=== PATIENT | female | born 1945 | race Caucasian/White ===

== ENCOUNTER → 2017-08-26 11:14 | Outpatient (CLI) | payer MEDICARE, OTHER, SELFPAY ==
[2017-08-26 12:40] LABS: Anion Gap 7 (5-15); BUN 17 mg/dL (7-18); BUN/Creat Ratio 16.3 RATIO (10-20); Calcium,Total 10.4 mg/dL (8.5-10.1); Chloride 103 mmol/L (98-107); Creatinine, Serum 1.04 mg/dL (0.55-1.02); EST Glomerular Filtration Rate 56 mL/min (>60); Est Glom Filt Rate - Afr Amer 67 mL/min (>60); Glucose 82 mg/dL (74-106); Magnesium 2.3 mg/dL (1.6-2.6); Potassium 3.9 mmol/L (3.5-5.1); Sodium Level 140 mmol/L (136-145)
== END ==
PROVIDERS: Family Provider Family Medicine; PCP Family Medicine; Visit Provider Family Medicine
DX: R20.0 Anesthesia of skin (principal)
CPT/HCPCS: 36415; 80048; 83735

== ENCOUNTER → 2017-11-13 06:44 | Outpatient (CLI) | payer MEDICARE, OTHER, SELFPAY ==
--- NOTE | 2017-11-13 10:20 | NEURO ---
NCS and/or EMG Patient Report Ordering Doctor: Vlad Dennis DATE OF SERVICE: 11/13/17 This is a left upper extremity EMG and nerve conduction study performed on this 72-year-old right-handed female who approximately 3 years ago had left ulnar nerve release surgery. She has abnormal sensations in her fourth and fifth digits on that side, which improved but have worsened. She also experiences cramping in her left hand intermittently which is a new finding for the past year and a half. Left upper extremity sensory and motor nerve conduction study was performed. The ulnar motor distal latency is prolonged across the elbow with reduction in conduction velocity and amplitude. The ulnar sensory distal latencies prolonged with reduction in amplitude. The median motor and sensory and radial sensory responses normal. The ulnar F wave is prolonged. Left upper extremity needle electromyography was performed. Muscles evaluated included the first dorsal interosseous, abductor pollicis brevis, abductor pollicis longus, abductor digiti quinti, brachioradialis, biceps, triceps and deltoid muscles. Muscles in a distal ulnar distribution including the first dorsal interosseous and the abductor digiti quinti demonstrated large motor units however abnormal spontaneous activity or insertional activity was absent. All other muscles including other muscles in his C8 distribution demonstrated normal insertional activity with absence of pathologic spontaneous activity and normal motor unit recruitment pattern as well as amplitude. 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 There is no evidence of active features.
== END ==
PROVIDERS: Family Provider Family Medicine; PCP Family Medicine; Visit Provider Family Medicine
DX: R20.0 Anesthesia of skin (principal)
CPT/HCPCS: 95886; 95909

== ENCOUNTER 2018-02-12 12:06 | Day surgery (SDC) | payer MEDICARE, OTHER, SELFPAY ==
[2018-02-12] VITALS (7 sets, daily range): BP systolic 104–138; BP diastolic 72–90; PULSE 97–116; RESP 18–20; TEMP 36.3–36.4; O2SAT 92–98; BMI 24.0
--- NOTE | 2018-02-12 17:16 | PCM.DC.ORTHO ---
Discharge Diet: No Restrictions - leave dressing in place, follow up in 2weeks, call with concerns Discharge Activity: May Not Drive May shower in (days): 1 Ice area for (Minutes): 20 - Every hour while awake. Weight Bearing Status: Weight bearing as tolerated Keep extremity elevated above heart level: Operative Extremity Call your doctor if your incision/area has: Continuous Slow Oozing, Sudden Increased Bleeding, Increased Pain/ Swelling, Increased Redness, Foul Smelling Discharge Call your doctor if you observe: Fever of 101 or Higher, Coldness, Increased Pain, Numbness or Tingling, Change in Color, Calf discomfort Allergies/Adverse Reactions: Allergies ipratropium [From Atrovent] Allergy (Verified 02/05/18 12:56) Rash terbinafine HCl [From Lamisil] Allergy (Verified 02/05/18 12:56) Rash Medications to take at Discharge Dicyclomine HCl [Bentyl] 20 mg PO TID 09/16/14 Multivitamins,Therapeutic [Multivitamin] 1 tablet PO DAILY 09/16/14 Sulfasalazine [Azulfidine] 500 mg PO BID 09/16/14 Calcium Carbonate/Vitamin D3 [Calcium 600 + Vit D3 Caplet] 1 each PO DAILY 12/16/14 Pyridoxine HCl [Vitamin B-6] 100 mg PO DAILY 11/03/15 Amlodipine Besylate [Norvasc] 5 mg PO LUNCH 10/11/16 Primary Care Physician: Vlad Dennis MD [Primary Care Provider] - Test Results: Test results from this visit will be discussed in further detail at your follow-up appointment, if applicable. Please Follow Up With: Mitali Horne, - [phone]
[2018-02-12] MEDS: Cefazolin 2 GM in 0.9% Normal Saline 100 ML IV (17:19)
--- NOTE | 2018-02-12 17:19 | OP.PCM_ITS ---
Report of Operation Date of Procedure: 02/12/18 Pre-Operative Diagnosis: left ulnar neuritis, h/o ulnar nerve transposion/ release 2014 Post-Operative Diagnosis: same Type of Anesthesia:: General Anesthesiologist: Denzel Bolden Estimated Blood Loss (mL): min Fluids Replaced: 300 ml lr Description of Procedure: Preoperative note Patient is a 72-year-old female who 3 years ago had an ulnar nerve release. Since that time patient has continued shocking neuritis with the ulnar nerve never feels like felt like she really improved. Her other surgeon has recently retired and patient came to me for a second opinion. Nerve study results show entrapment across the elbow and worsening chronic ulnar neuritis. Risks benefits and alternatives surgery discussed with patient. Risks including but not limited to blood loss, blood clot, infection, neurovascular injury, failure procedure, loss of life and loss of limb. Patient is aware like proceed with left ulnar nerve transfer revision transposition versus release in situ versus release repair is indicated indicated. Operative note Patient seen and examined [facility] area. Left eye was marked. Patient was brought to the operating and placed supine on the operating table. Sign, anesthesia, antibiotics were administered. Left arm was prepped and draped in usual sterile fashion with a sterile tourniquet applied. We marked out our incision from her previous from the patient's previous incision for her ulnar nerve release and then extended about 2-3 cm in both directions. Timeout performed with an elevated segment of the arm and triglycerides were pressure of 250 torr. We then used a 15 blade to cut the skin and dissected down between the level of the medial epicondyle and the olecranon and then subcutaneous tissue. We then dissected down carefully with tenotomies as the ulnar nerve had been transposed fairly we have previously me to find it. We dissected down to the scar tissue did not complete neuro lysis she had had a subcutaneous transposition and had a sharp turn into the FCU and had was actually creating a tourniquet of the nerve between the subcutaneous sling and then her diving down into the FCU is quite obvious this is the area of release the need to be performed. We completed distally he also completed more essentially proximally. Because she had had a subcutaneous sling as she had a lot of soft tissue on the medial epicondyle we did flex and extend and the elbow at that time and the nerve did not sublux. We then irrigated the incision with copious amounts of sterile saline. The incision was closed with interrupted 2-0 Vicryl and running 4-0 Monocryl sterile dressings and splint splint was applied 9?. Patient tolerated procedure well patient was extubated and transferred to recovery room in stable condition there were no comp occasions patient tolerated procedure well. Postoperative note Splint at all times If needs pain medication patient will call tomorrow however she has some pain pills from the past where she has had other surgeries Call with increased pain numbness tingling or further issues arise Follow-up in 2 weeks This note was generated with [employer] dictation software. It may contain incorrect words, spelling, and punctuation that were not noted in checking the note before signing.
[2018-02-12] MEDS: Ondansetron 4 MG/2 ML Vial IV (17:45)
[2018-02-12] MEDS: Mupirocin Ointment 22gm Tube 1 APPLIC (18:08)
== END 2018-02-12 20:10 | disposition home or self-care (01) ==
LOC: SDC 12:06 → AC 12:08
PROVIDERS: Family Provider Family Medicine; PCP Family Medicine; Visit Provider Orthopaedic Surgery
PROC: (CPT 64718; principal; 2018-02-12 13:55)
DX: G56.22 Lesion of ulnar nerve, left upper limb (principal); J44.9 Chronic obstructive pulmonary disease, unspecified; B15.9 Hepatitis A without hepatic coma; K52.9 Noninfective gastroenteritis and colitis, unspecified; Z85.828 Personal history of other malignant neoplasm of skin; Z85.118 Personal history of other malignant neoplasm of bronchus and lung; Z86.718 Personal history of other venous thrombosis and embolism; Z79.899 Other long term (current) drug therapy; Z87.891 Personal history of nicotine dependence
CPT/HCPCS: 64718; J7120; J2405

== ENCOUNTER → 2018-02-19 13:40 | Outpatient (CLI) | payer MEDICARE, OTHER, SELFPAY ==
--- NOTE | 2018-02-19 13:42 | CT_ITS ---
STUDY: CT CHEST WITH CONTRAST REASON FOR EXAM: Female, 72 years old. Lung cancer RADIATION DOSAGE (If Supplied By Facility): CTDIvol = ( 10.47 ) mGy, DLP = ( 278.18 ) mGycm TECHNIQUE: Transaxial imaging was performed following intravenous administration of 100 ml of Isovue 300 contrast material. Multiplanar coronal and sagittal images were reformatted. Individualized dose optimization techniques were used for this CT. COMPARISON: 02/13/2017 FINDINGS: The lungs are emphysematous. Spiculated soft tissue in the right hilar region is unchanged, with evidence of fibrosis/scarring within the right middle lobe and right lower lobe. This may represent radiation changes. There is a slightly spiculated lesion within the lingula which is unchanged in appearance. No pleural effusion. Small spiculated density in the left upper lobe appears slightly more prominent. Normal heart and pericardium. Normal mediastinum. No change to the appearance of the right hilum. Normal enhanced pulmonary arteries. There is mild calcification of the aortic arch. Normal osseous structures. Cholecystectomy clips are seen in the right upper quadrant of the abdomen. CT/Chest WITH Contrast IMPRESSION: Irregular spiculated soft tissue lesion in the right hilum with adjacent changes within the medial lung may represent post radiation fibrosis. Diffuse emphysematous changes. Small spiculated lesion in the left upper lobe appears slightly more prominent than on examination of one year previously. Stable small spiculated lesion within the lingula. This patient may benefit from CT for further evaluation. Electronically Signed: Leo Martinez DO at 14:40 EDT Tel , Service support ,
[2018-02-19 14:21] LABS: CREATININE FINGERSTICK < 0.6 mg/dL (0.55-1.02); EGFR FINGERSTICK > 60.0000 mL/min (>60)
== END ==
PROVIDERS: Family Provider Family Medicine; PCP Family Medicine; Visit Provider Internal Medicine Medical Oncology
DX: C34.90 Malignant neoplasm of unspecified part of unspecified bronchus or lung (principal)
CPT/HCPCS: 71260; Q9967

== ENCOUNTER → 2018-06-19 07:44 | Outpatient (CLI) | payer MEDICARE, OTHER, SELFPAY ==
[2018-03-25 08:50] VITALS: BMI 23.6
--- NOTE | 2018-06-19 07:50 | CT_ITS ---
STUDY: CT CHEST WITHOUT CONTRAST REASON FOR EXAM: Female, 72 years old. Nodules, right lung surgery, lung cancer diagnosed 5 years ago RADIATION DOSAGE (If Supplied By Facility): CTDIvol = ( 7.08 ) mGy, DLP = ( 238.70 ) mGycm TECHNIQUE: Transaxial imaging was performed without the administration of intravenous contrast material. Individualized dose optimization techniques were used for this CT. COMPARISON: Previous study of 02/19/2018 FINDINGS: The study is technically limited being performed without intravenous contrast. There is again noted spiculated density of the right hilar region appearing similar to the previous study. There is a focus of consolidation with air bronchograms of the posteromedial aspect of the superior segment of the right lower lobe, similar to the previous study. There is a wispy focus of the left upper lobe. There is scarring of the left upper lobe apex. There are diffuse emphysematous changes of the lungs most severely affecting the upper lobes. There is an intrafissural nodule of the right lower lobe measuring 5 mm, stable in the interval. There is no demonstrated pleural abnormality. The heart size is within normal limits. Coronary arterial calcifications are present. Normal mediastinum. Hilar areas are difficult to assess with the absence of intravenous contrast. There is no obvious hilar mass or adenopathy. Normal unenhanced pulmonary arteries. There are calcified plaques of the thoracic aorta. There is diffuse endplate spondylosis of the visualized thoracolumbar spine. No lytic or blastic osseous changes are noted. Status post cholecystectomy changes are noted. CT/Chest without Contrast IMPRESSION: 1. There is again noted spiculated density at the right hilar region appearing similar to the previous study. 2. There is a focus of consolidation with air bronchograms of the posteromedial aspect of the superior segment of the right lower lobe similar to the previous study. This may represent radiation fibrosis. 3. Scarring of the left upper lobe apex and wispy focus of the left upper lobe, stable in the interval. 4. Diffuse mild emphysematous changes of the lungs most severely affecting the upper lobes. 5. 5 mm intrafissural nodule of the right lower lobe, stable in the interval. Electronically Signed: Bobby Galindo MD at 20:30 EST , Service support ,
== END ==
PROVIDERS: Family Provider Family Medicine; PCP Family Medicine; Referring Provider Internal Medicine Medical Oncology; Visit Provider Internal Medicine Medical Oncology
DX: R91.1 Solitary pulmonary nodule (principal); Z85.118 Personal history of other malignant neoplasm of bronchus and lung
CPT/HCPCS: 71250

== ENCOUNTER → 2018-08-29 08:53 | Outpatient (CLI) | payer MEDICARE, OTHER, SELFPAY ==
[2018-08-18 09:57] VITALS: BMI 24.5
[2018-08-29 10:40] LABS: BUN 12 mg/dL (7-18); Creatinine, Serum 0.87 mg/dL (0.55-1.02); EST Glomerular Filtration Rate 68 mL/min (>60); Glucose 89 mg/dL (74-106)
[2018-08-29 10:41] LABS: ALB/GLOB Ratio 1.1 RATIO (0.9-2.4); AST(SGOT) 78 U/L (15-37); Alanine Aminotransfer ALT/SGPT 101 U/L (13-56); Albumin, Serum 3.8 g/dL (3.2-5.0); Alkaline Phosphatase 146 U/L (45-117); Anion Gap 9 (5-15); BUN/Creat Ratio 13.8 RATIO (10-20); Chloride 106 mmol/L (98-107); Cholesterol 187 mg/dL (200); Est Glom Filt Rate - Afr Amer 82 mL/min (>60); Globulin 3.6 g/dL (2.2-4.2); High Density Lipoprotein 44 mg/dL; Protein, Total 7.4 g/dL (6.4-8.2); Sodium Level 143 mmol/L (136-145); Triglycerides 320 mg/dL; Very Low Density Lipoprotein 64 mg/dL (5-40)
== END ==
PROVIDERS: Family Provider Family Medicine; PCP Family Medicine; Visit Provider Family Medicine
DX: I10 Essential (primary) hypertension (principal)
CPT/HCPCS: 36415; 80053; 80061

== ENCOUNTER → 2018-10-16 09:11 | Outpatient (CLI) | payer MEDICARE, OTHER, SELFPAY ==
[2018-08-18 09:57] VITALS: BMI 24.5
--- NOTE | 2018-10-16 09:15 | BI_ITS ---
MAMMOGRAPHY - BILATERAL SCREENING REASON FOR EXAM: Female, 73 years old. Routine annual screening examination. PERTINENT HISTORY: Aunt with breast cancer. TECHNIQUE: Digital bilateral breast manisha (3D mammographic acquisition) in the CC and MLO projections. 2-D mediolateral oblique (MLO) and craniocaudad (CC) views of both breasts were obtained. CAD: Full Field Digital Mammography with Computer Added Detection was performed. COMPARISON: Comparison is made with prior study dated January 30, 2018 and July 11, 2016. FINDINGS: Breast Composition: The breasts are extremely dense, which lowers the sensitivity of mammography. There are no dominant masses or suspicious calcifications. No other significant abnormalities are identified. There has been no significant change since the prior study. BI/SCREENING MAMM (CAD), BILAT IMPRESSION: Stable bilateral screening mammogram. Yearly follow-up mammogram recommended. (A) ASSESSMENT CATEGORY: BIRADS Category 1: Negative. A letter regarding these results will be sent to the patient by the facility within 30 days. Approximately 10% of breast cancers are not detected by mammography. A normal mammogram should not delay biopsy of a clinically suspicious abnormality. [id number] Electronically Signed: Kingsley Clements, at 11:17 EDT , Service support ,
--- NOTE | 2018-10-16 09:17 | BD_ITS ---
STUDY: DUAL ENERGY X-RAY ABSORPTIOMETRY / DXA REASON FOR EXAM: Female, 73 years old. The patient is postmenopausal. Loss of height. TECHNIQUE: Bone Mineral Density (BMD) measurements of lumbar spine and bilateral hips were obtained. COMPARISON: None. FINDINGS: Lumbar Spine (L1-L4): g/cm2 (0.982) / T-score (-1.8) / Z-score (-0.1) Findings are suggestive of osteopenia with a moderate fracture risk. Left Femur Total: g/cm2 (0.807) / T-score (-1.6) / Z-score (0.0) Left Femoral Neck: g/cm2 (0.774) / T-score (-1.9) / Z-score (-0.1) Right Femur Total: g/cm2 (0.827) / T-score (-1.4) / Z-score (0.1) Right Femoral Neck: g/cm2 (0.783) / T-score (-1.8) / Z-score (-0.1) BD/Dexa Bone Density Study IMPRESSION: The patient is considered osteopenic as outlined below according to World [employer] Organization (WHO) criteria with a moderate fracture risk. Reference Information: The T-score is the number of standard deviations above or below the standard which is normal for young adults at their peak bone mineral density. The World Health Organization (WHO) interprets the T-scores as follows: Above -1 Normal bone density Between -1 and -2.5 Osteopenia Equal to / or below -2.5 Osteoporosis As a practical clinical guideline, osteopenia may be graded as follows: Mild -1 through -1.5 Moderate -1.6 through -2.0 Severe -2.1 through -2.4 The Z-score is the number of standard deviations above or below age-matched controls. A Z-score of less than -1.5 would be considered abnormal. References: 1. NIH Osteoporosis and Related Bone Diseases http://www.osteo.org 2. International Society for Clinical Densitometry http://www.iscd.org 3. National Osteoporosis Foundation http://www.nof.org Electronically Signed: Kingsley Clements, at 11:27 EDT , Service support ,
== END ==
PROVIDERS: Family Provider Family Medicine; PCP Family Medicine; Referring Provider Family Medicine; Visit Provider Family Medicine
DX: Z78.0 Asymptomatic menopausal state (principal); Z12.31 Encounter for screening mammogram for malignant neoplasm of breast
CPT/HCPCS: 77063; 77067; 77080

== ENCOUNTER → 2018-10-23 | Outpatient (CLI) | payer MEDICARE, OTHER, SELFPAY ==
[2018-06-23 11:13] VITALS: BMI 24.5
[2018-08-18 09:57] VITALS: BMI 24.5
--- NOTE | 2018-10-23 07:47 | CT_ITS ---
STUDY: CT CHEST WITH CONTRAST REASON FOR EXAM: Female, 73 years old. Follow-up lung cancer, history of non-small cell lung CA status post chemotherapy and radiation RADIATION DOSAGE (If Supplied By Facility): CTDIvol = ( 6.91 ) mGy, DLP = ( 270.05 ) mGycm TECHNIQUE: Transaxial imaging was performed following intravenous administration of 100CC IV Isovue 300. Individualized dose optimization techniques were used for this CT. COMPARISON: Previous study of 06/19/2018 FINDINGS: There is scarring of the lung apices left side more severely affected than right. There are moderately severe emphysematous changes most severely affecting the upper lobes. There is a small focus of scarring of the anterior left upper lobe, stable in the interval. There is against demonstrated a focus of scarring of the posteromedial right lower lobe apex, stable in the interval. There is a region of atelectasis with air bronchograms of the posterior aspect of the superior segment of the right lower lobe, stable in the interval. There is no pleural effusion. There is a stable intrafissural 5 mm nodule of the left lower lobe (not right lower lobe as previously reported) The heart size is within normal limits. There is no pericardial effusion. Normal mediastinum. There is minimal spiculated density at the right hilus, appearing similar to the prior noncontrast study. Normal enhanced pulmonary arteries. There are calcified plaques of the thoracic aorta. There is minimal endplate spondylosis of the visualized lumbar spine. Status post cholecystectomy changes are noted. CT/Chest WITH Contrast IMPRESSION: 1. Scarring of the lung apices, left side more severely affected than right. 2. Moderately severe emphysematous changes most severely affecting the upper lobes. 3. Small focus of scarring of the anterior left upper lobe, stable in the interval. 4. There is again demonstrated a focus of scarring in the posteromedial right lower lobe apex with associated atelectasis posteriorly, also stable in the interval. This again may represent post radiation fibrosis. 5. Stable intrafissural 5 mm nodule of the left lower lobe (not right lower lobe as previously reported). Minimal spiculated density of the right hilus, stable in the interval. Electronically Signed: Bobby Galindo MD at 21:13 EDT , Service support ,
== END | disposition home or self-care (01) ==
LOC: CT 07:42
PROVIDERS: Family Provider Family Medicine; PCP Family Medicine; Referring Provider Internal Medicine Medical Oncology; Visit Provider Internal Medicine Medical Oncology
DX: C34.11 Malignant neoplasm of upper lobe, right bronchus or lung (principal); R91.8 Other nonspecific abnormal finding of lung field
CPT/HCPCS: 71260; Q9967

== ENCOUNTER → 2019-04-30 06:50 | Outpatient (CLI) | payer MEDICARE, OTHER, SELFPAY ==
[2018-10-27 13:58] VITALS: BMI 24.5
--- NOTE | 2019-04-30 06:53 | CT_ITS ---
STUDY: CT CHEST WITH CONTRAST REASON FOR EXAM: Female, 73 years old. Follow-up lung cancer RADIATION DOSAGE (If Supplied By Facility): CTDIvol = ( 9.62 ) mGy, DLP = ( 216.35 ) mGycm TECHNIQUE: Transaxial imaging was performed following intravenous administration of IV Isovue 300 100mL. Individualized dose optimization techniques were used for this CT. COMPARISON: 10/23/2018 FINDINGS: Mild emphysematous changes. No change in bilateral apical scarring. No change in the scarring in the hilum of the right lung and the medial aspect of the right lung likely related to radiation therapy. There is also no change in the focal scarring in the anterior lingula of the left lung. No new noncalcified nodule or mass. There is no demonstrated pleural abnormality. Normal heart and pericardium. Questionable occlusion of the left brachiocephalic vein or possibly a left-sided superior vena cava which drains into the hemiazygos vein. Normal mediastinum. Normal hilar regions. Normal enhanced pulmonary arteries. Normal aorta arch and descending thoracic aorta. Normal osseous structures. Status post cholecystectomy. CT/Chest WITH Contrast IMPRESSION: No change from 10/23/2018. Electronically Signed: Rodney Skinner MD at 9:54 EDT Tel , Service support ,
[2019-04-30 07:51] LABS: CREATININE FINGERSTICK 0.8 mg/dL (0.55-1.02); EGFR FINGERSTICK > 60.0000 mL/min (>60)
== END ==
PROVIDERS: Family Provider Family Medicine; PCP Family Medicine; Referring Provider Internal Medicine Medical Oncology; Visit Provider Internal Medicine Medical Oncology
DX: C34.01 Malignant neoplasm of right main bronchus (principal)
CPT/HCPCS: 71260; Q9967

== ENCOUNTER → 2019-08-25 06:48 | Outpatient (CLI) | payer MEDICARE, OTHER, SELFPAY ==
[2019-08-12 08:47] VITALS: BMI 24.1
--- NOTE | 2019-08-25 06:49 | ECHOD_ITS ---
Reason For Study: CHEST PAIN Procedure This was a 2D Doppler, Color Flow transthoracic echocardiogram. Myocardial strain analysis was performed in this exam to aid in the assessment of cardiac function. Exam performed in department. Left Ventricle Normal LV size. Left ventricular systolic function is lower limits of normal. The estimated ejection fraction is 50 %. Stage 1 diastolic dysfunction. No regional wall motion abnormalities noted. Right Ventricle Normal RV size. Normal systolic function. Atria Normal left atrium. Normal right atrium. Mitral Valve Normal mitral valve. Tricuspid Valve Normal tricuspid valve. Mild tricuspid valve insufficiency. Pulmonary artery systolic pressure is 27 mmHg. Aortic Valve Normal aortic valve. Trisinus/trileaflet aortic valve. Pulmonic Valve Normal pulmonic valve. Great Vessels Normal aortic root. The pulmonary artery is normal size. Normal inferior vena cava. Pericardium/Pleural No pericardial effusion. MMode/2D Measurements & Calculations LVIDd: 4.3 cm IVSd: 0.69 cm Ao root diam: 3.7 cm LVIDs: 3.0 cm LVPWd: 0.90 cm RVDd: 2.8 cm FS: 28.5 % LAV(MOD-bp): 26.8 ml LA A4 area: 10.3 cm2 LA dimension(2D): 2.9 cm LAV(MOD-bp) Indexed: 16.7 ml/m2 LAV(MOD-sp2): 29.9 ml LAV(MOD-sp4): 21.6 ml RA A4 area: 9.3 cm2 Time Measurements MV dec time: 0.14 sec Doppler Measurements & Calculations MV E max escobar: 49.2 cm/sec Lat Peak E' Escobar: 11.1 cm/sec Med Peak E' Escobar: 10.8 cm/sec MV A max escobar: 124.1 cm/sec E/E' lat: 4.4 E/E' med: 4.6 MV E/A: 0.40 Ao V2 max: 129.7 cm/sec LV V1 max: 88.0 cm/sec TR max escobar: 237.1 cm/sec Ao max P.7 mmHg LV V1 max P.1 mmHg TR max P.5 mmHg Interpretation Summary Normal LV size. Left ventricular systolic function is lower limits of normal. The estimated ejection fraction is 50 %. Stage 1 diastolic dysfunction. The global longitudinal strain = -18.4 % (normal). Ordering Physician: Aquiles Peralta Referring Physician: BONILLA MENDOZA Performed By: Beth Hunter, JESUSCS, RVT
--- NOTE | 2019-08-25 12:30 | STRESSREP ---
Stress Test Report Exercise myocardial perfusion stress test. 73-year-old lady with a history of dyspnea. Stress protocol: Resting EKG demonstrates sinus rhythm with a rate of 105 bpm resting blood pressures 130/80 mmHg. The patient exercised according to regular Justin protocol for a total duration of 6 minutes. The maximum heart rate attained was 153 bpm which was 103% of maximum predicted heart rate the maximum workload was 7 metabolic equivalents. At rest there were no ST or T wave changes noted suggest ischemia peak exercise upsloping ST changes only were noted with no meet the criteria for ischemia. The test was terminated due to the target heart rate being achieved. Resting blood pressures 130/80 mmHg and a peak blood pressure 158/88 mmHg. Myocardial perfusion protocol. 11.3 mCi of technetium 99m sestamibi was injected at rest. The patient exercised for a total duration of 6 minutes at peak exercise 33.1 mCi of technetium 99m sestamibi was injected stress images were obtained stress and rest images were reconstructed and compared in the short axis vertical long horizontal long axis. Gated images were also obtained Perfusion SPECT analysis: Review of the stress images demonstrate normal uptake of tracer noted in all areas of the myocardium the resting images similar demonstrate normal uptake of tracer noted in all areas of the myocardium. No reversibility is noted suggest ischemia no previous infarct is noted. Gated SPECT analysis: The gated ejection fraction is 66%. Conclusion: Normal exercise myocardial perfusion stress test at a moderate workload. Good functional capacity. Preserved ejection fraction.
== END ==
PROVIDERS: PCP Family Medicine; Referring Provider Internal Medicine Cardiovascular Disease; Visit Provider Internal Medicine Cardiovascular Disease
DX: R07.9 Chest pain, unspecified (principal); R06.09 Other forms of dyspnea
CPT/HCPCS: 78452; 93017; 93306; A9500; A4216

== ENCOUNTER → 2019-09-09 10:15 | Outpatient (CLI) | payer MEDICARE, OTHER, SELFPAY ==
[2019-08-12 08:47] VITALS: BMI 24.1
[2019-09-09 12:43] LABS: ALB/GLOB Ratio 1.1 RATIO (0.9-2.4); AST(SGOT) 36 U/L (15-37); Alanine Aminotransfer ALT/SGPT 49 U/L (13-56); Albumin, Serum 3.8 g/dL (3.2-5.0); Alkaline Phosphatase 136 U/L (45-117); Anion Gap 6 (5-15); BUN 15 mg/dL (7-18); BUN/Creat Ratio 19.6 RATIO (10-20); Calcium,Total 9.4 mg/dL (8.5-10.1); Chloride 107 mmol/L (98-107); Cholesterol 211 mg/dL (200); Creatinine, Serum 0.77 mg/dL (0.55-1.02); EST Glomerular Filtration Rate 79 mL/min (>60); Est Glom Filt Rate - Afr Amer 95 mL/min (>60); Globulin 3.6 g/dL (2.2-4.2); Glucose 92 mg/dL (74-106); High Density Lipoprotein 48 mg/dL; Protein, Total 7.4 g/dL (6.4-8.2); Sodium Level 140 mmol/L (136-145); Triglycerides 192 mg/dL; Very Low Density Lipoprotein 38 mg/dL (5-40)
[2019-09-09 12:57] LABS: Vitamin D,25 Hydroxy 45.6 ng/mL
== END ==
PROVIDERS: PCP Family Medicine; Referring Provider Family Medicine; Visit Provider Family Medicine
DX: Z00.00 Encounter for general adult medical examination without abnormal findings (principal); I10 Essential (primary) hypertension; E55.9 Vitamin D deficiency, unspecified
CPT/HCPCS: 36415; 80053; 80061; 82306

== ENCOUNTER → 2019-10-19 07:59 | Outpatient (CLI) | payer MEDICARE, OTHER, SELFPAY ==
[2019-08-12 08:47] VITALS: BMI 24.1
--- NOTE | 2019-10-19 08:02 | BI_ITS ---
MAMMOGRAPHY - BILATERAL SCREENING REASON FOR EXAM: Female, 74 years old. Routine annual screening examination. PERTINENT HISTORY: Aunt with breast cancer. The patient has a history of treated lung cancer. TECHNIQUE: Digital bilateral breast moon (3D mammographic acquisition) in the CC and MLO projections. 2-D mediolateral oblique (MLO) and craniocaudad (CC) views of both breasts were obtained. CAD: Full Field Digital Mammography with Computer Added Detection was performed. COMPARISON: Comparison is made with prior study dated October 16, 2018 and August 02, 2017. FINDINGS: Breast Composition: The breasts are extremely dense, which lowers the sensitivity of mammography. There are no dominant masses or suspicious calcifications. No other significant abnormalities are identified. There has been no significant change since the prior study. BI/SCREEN MAMM (CAD) W/MOON BILAT IMPRESSION: Stable bilateral screening mammogram. Yearly follow-up mammogram recommended. (A) ASSESSMENT CATEGORY: BIRADS Category 1: Negative. A letter regarding these results will be sent to the patient by the facility within 30 days. Approximately 10% of breast cancers are not detected by mammography. A normal mammogram should not delay biopsy of a clinically suspicious abnormality. [id number] Electronically Signed: Kingsley Clements, at 9:47 EDT , Service support ,
== END ==
PROVIDERS: PCP Family Medicine; Referring Provider Family Medicine; Visit Provider Family Medicine
DX: Z12.31 Encounter for screening mammogram for malignant neoplasm of breast (principal)
CPT/HCPCS: 77063; 77067

== ENCOUNTER 2019-12-16 06:46 | Day surgery (SDC) | payer MEDICARE, OTHER, SELFPAY ==
[2019-08-12 08:47] VITALS: BMI 24.1
[2019-12-16] VITALS (8 sets, daily range): BP systolic 85–116; BP diastolic 39–72; PULSE 104–112; RESP 16–18; TEMP 35.8–36.7; O2SAT 93–100; BMI 24.1
--- NOTE | 2019-12-16 | COLBX_PTH ---
PATIENT: GEE LAURA LOC: EN U#:[id number] AGE/SX: 74/F ROOM: RE12/16/[address]: Dr. Chacha Scott MD : 1945 BED: DIS: 12/16/2019 SPEC #: [id number] RECD: 12/16/19 15:29 STATUS: ISACC DENNIS #: [id number] LUCY: 12/16/19 00:[address]: Chacha Scott DEPT: SURGICAL PATHOLOGY RECD BY: David Fritz ENTERED: 12/17/19 08:46 SP TYPE: COLON BX OTHR DR: Dr. Vlad Dennis MD Tissues: A - Sigmoid colon biopsy B - Sigmoid colon biopsy C - Sigmoid colon biopsy Procedures: Surgery Specimen Level IV HEADER OPERATION: Colonoscopy - open access (MAC) PRE-OP DIAGNOSIS: History polyps TISSUE SUBMITTED: A - Sigmoid polyp at 33 cm, B - Rectosigmoid at 15 cm polyp biopsy, C - Rectosigmoid at 15 cm polyp MICROSCOPIC DIAGNOSIS A. Sigmoid colon polyp at 33 cm, biopsy: Fragments of tubular adenoma. B. Rectosigmoid colon polyp at 15 cm, biopsy: Hyperplastic polyp. C. Rectosigmoid colon polyp at 15 cm, biopsy: Tubular adenoma. Minute fragment of hyperplastic polyp. AM:kevin 12/18/19 MICROSCOPIC DESCRIPTION Slides are reviewed. GROSS DESCRIPTION A - Received in fixative is one container labeled with the patient's name and designated sigmoid polyp. The specimen consists of a pink-red polyp measuring 1 x 0.8 x 0.5 cm. The apparent base is inked. The specimen is bisected and submitted entirely in one cassette. B - Received in fixative is one container labeled with the patient's name and designated rectosigmoid polyp biopsy. The specimen consists of two irregular fragments of light pinto soft tissue that in aggregate measure 0.4 x 0.2 x 0.1 cm. The specimen is totally submitted in one cassette. C - Received in fixative is one container labeled with the patient's name and designated rectosigmoid polyp at 15 cm. The specimen consists of multiple irregular fragments of light pinto soft tissue that in aggregate measure 1 x 0.5 x 0.1 cm. The specimen is totally submitted in one cassette. / SJ:kevin 12/17/19 TC:5 CPT: 42091 x3
[2019-12-16] MEDS: Lactated Ringers 1,000 ML 100 ML IV (07:27)
--- NOTE | 2019-12-16 07:37 | H&P.OPEN ---
History of Present Illness Date of Admission: 12/16/19 The patient is a 74 year old F presents for screening colonoscopy due to history of colon polyps. Patient last colonoscopy was in 2011 showed hyperplastic polyp in her sigmoid colon. Patient's brother was diagnosed with colon cancer in his 70s. Patient a questionable history of possible UC however does not sound like there is any official diagnosis and may have been initially just her lactose intolerant causing the diarrhea because patient states that has all improved since she has avoided dairy. Patient is currently only on Bentyl no other medications that would be used for ulcerative colitis. Patient denies any chronic abdominal pain nausea/vomiting/heartburn. Past Medical/Surgical History - Planned Operation Planned Operative Procedure/s: cscope Date of Operative Procedure: 12/16/19 Permit Signed: No S.O.S: No Is This Patient Having a Total Joint: No - Previous Hospitalizations/Surgeries HX Hospitalizations: No HX of Surgeries: GALLBLADDER. HYSTERECTOMY. HERNIA REPAIR. CYST ON OVARY REMOVED/APPENDECTOMY. COLONOSCOPY. PORT PLACEMENT 2014 FOR CHEMO. PORT REMOVAL 2016. LUNG SURGERY [facility] 2015. left ulnar nerver release 2017. left arm surgery 2014 Any Problems With Anesthesia: No You/Your Family Experience Fever (Hyperthermia) With Anes: No Cholinesterase deficiency: No - Cardiovascular Hx Chest Pain within Last 2 months: No Hx of Irregular Heartbeat and/or Afib: No - saw wh 07/2019 Hx Heart Attack: No Hx Congestive Heart Failure: No Hx Rheumatic Fever: No Hx Hypertension: No Hx Internal Defibrillator: No Hx Pacemaker: No Hx Cardiac Catheterization: No Hx Cardiac Surgery/Stents/Etc.: No Hx Stress Test: Yes - stress and echo 2019 HX Edema: No Hx Pain in Legs when Walking/Leg Cramps: No - Respiratory Chronic Cough: No HX of Shortness of Breath: Yes - SOB WITH 2 FLIGHTS STAIRS, HX LUNG CA Hoarseness: No Hx Chronic Obstructive Pulmonary Disease (COPD): Yes - DR HERNANDEZ, 2015 LUNG SURGERY Hx Asthma: No Hx Emphysema: No Hx Sleep Apnea: No CPAP: No BIPAP: No Hx Oxygen Use at Home: No Hx Respiratory Tract Infection/Cold (presently): No Do You Snore Loudly (louder than talking or can be heard): No Do You Often Feel Tired/ Fatigued/ Sleepy Dring Daytime?: No Has Anyone Observed You Stop Breathing During Sleep?: No Result (for STOP score): Negative Hx Smoking: Yes - QUIT 2014 Smoking Status: Former smoker - Gastrointestinal Hx Gastroesophageal Reflux: Yes - . Controlled With Meds: Yes Hx Gastrointestinal Disorders: Yes - COLITIS Hx Gastrointestinal Bleed: No Hx Ulcer: Yes - in the past Hx Hiatal Hernia: Yes - surgery Difficulty Chewing/Swallowing: No Recent Onset of Swallowing Problems: No Special diet followed at home: No - lactose Hx Unplanned Weight Loss of 20#: No HX Unplanned Weight Gain of 20#: No - Neurological Hx Seizures: No HX Syncope/Blackout Spells/Unconsciousness: No Hx CVA/Stroke: No Hx Transient Ischemic Attacks (TIA): No Hx Multiple Sclerosis: No Hx Parkinson's Disease: No Hx Head/Neck Injury: No Hx Headaches: No Hx Back Injury/Pain: No Recent Onset of Speech Difficulty: No Restless Legs: No Does patient have nerve stimulator: No Patient instructed to have device shut off: No Rep notified?: No - Blood Disorder Hx Leukemia: No Bleeding Tendencies: No Hx Deep Vein Thrombosis: Yes - DURING CHEMO/RADIATION/lung pe Hx High Cholesterol: No Blood Transmitted Disease: No Hx Hepatitis: Yes - HEP A OVER 20 YRS AGO Hx Cirrhosis: No Hx Anemia: No Hx Blood Disorders: No - Reproduction : No Is Patient Lactating: No Hx Hysterectomy: Yes Hx Tubal Ligation: No Are You Post Menopause: Yes - Genitourinary Hx Renal Disease: No Hx Dialysis: No - Musculoskeletal Hx Arthritis: Yes - PER HX Hx Rheumatoid Arthritis: No Hx Gout: No Recent Onset of an Orthopedic Problem: No - Endocrine Hx Diabetes: No Thyroid Disease: No Hx Steroid Therapy: No - Psycho/Social Hx Substance Use: No Hx Alcohol Use: No - . Hx Anxiety: No Hx Depression: No Mental Illness: No Hx Dementia: No - Miscellaneous Hx Cancer: Yes - LUNG CA IN REMISSION. HX OF SKIN CA Recent Exposure to Contagious Disease: No Active MRSA: No Hx of C-Diff: No Any Loose Teeth: No - FULL SET OF DENTURES Allergies ipratropium [From Atrovent] Allergy (Verified 12/16/19 07:07) Rash terbinafine HCl [From Lamisil] Allergy (Verified 12/16/19 07:07) Rash lactose Adverse Reaction (Verified 12/16/19 07:07) Upset Stomach Maternal Family History: Family History (Last Reviewed 08/12/19 @ 10:[address] Aquiles Peralta MD) Father Liver disease Mother Uterine cancer Brother Myocardial infarction, Onset Age: 60 No pertinent history Paternal Family History: Family History (Last Reviewed 08/12/19 @ 10:[address] Aquiles Peralta MD) Father Liver disease Mother Uterine cancer Brother Myocardial infarction, Onset Age: 60 No pertinent history - Discharge Is Pt Admitted From a Halfway, or a Nursing Home: No After D/C, Where Do you Plan to Go: Return Home - From the PAT History Number of Risk Factors: 6 - Physical Exam Vitals/I&O's: Vital Signs Temp Pulse Resp BP Pulse Ox 98.0 F 112 H 18 116/67 97 12/16/19 07:13 12/16/19 07:13 12/16/19 07:13 12/16/19 07:13 12/16/19 07:13 Oxygen Delivery Method Room Air Weight: 132 lb Body Mass Index (BMI) 24.1 General: Alert, Oriented x3, Cooperative, No apparent distress HEENT: Atraumatic Lungs: Normal air movement Cardiovascular: Regular rate Abdomen: Soft, Non Tender, Non-Distended Extremities: No clubbing, No cyanosis, No edema Neurological: Cranial nerves II-XII grossly intact Psych/Mental Status: Normal Affect Laboratory Results 12/15/19 09:00: COVID-19 (SHAHRIAR) Not Detected Current Medications Lactated Ringer's () 1,000 mls @ 100 mls/hr IV .Q10H SHOAIB Last Admin: 12/16/19 07:27 Dose: 100 mls/hr Documented by: Assessment/Plan All Active Problems (Last Reviewed 08/12/19 @ 10:[address] Aquiles Peralta MD) Chest pain (Acute) Bilateral pulmonary embolism (Resolved 11/06/14) 74-year-old female history of colon Polyps Procedure Criteria Procedure Type: Elective COVID Risk Discussion: The surgeon/proceduralist and patient have discussed in detail the risk of exposure to and/or potential harm posed by the COVID-19 virus with having a surgery/procedure at this time versus the risk of delaying the surgery/procedure. It is not possible to know either the risk of delaying the surgery or procedure or chance of getting an infection with perfect accuracy, but a joint decision was made between the patient and the surgeon/proceduralist to proceed at this time with the scheduled surgery/procedure as indicated on the consent form. Surgery Risks - Colonoscopy I discussed with the patient the risks of the procedure: Yes Risks Include but are not Limited To: Risks include but are not limited to: Bleeding, perforation requiring further surgery, inability to complete colonoscopy requiring barium enema. Patient no further questions this time.
--- NOTE | 2019-12-16 09:11 | OP.CCLET_ITS ---
12/16/2019 Vlad Dennis MD [address] [id number] Re : Colonoscopy procedure for Saida Craig Dear Dr. Dennis This procedure was performed on Monday, December 16, 2019. My impressions and recommendations are as follows: Impressions : - Hemorrhoids found on perianal exam. - Two 3 to 5 mm polyps in the rectum and at the recto-sigmoid colon, removed with a hot snare. Complete resection. Partial retrieval. - Four less than 5 mm polyps at the recto-sigmoid colon, removed with a cold biopsy forceps. Resected and retrieved. - One 7 mm polyp in the sigmoid colon, removed with a hot snare. Resected and retrieved. Tattooed. - Internal hemorrhoids. Recommendations : - Discharge patient to home. - Repeat colonoscopy 1-3 years for surveillance based on pathology results. - Continue present medications. My findings are described in the full procedure note, which is enclosed. If I can be of further assistance, please feel free to contact me at Doctor phone number(s): , Work: . Sincerely, MD Chacha House MD 12/16/2019 9:10:28 AM This report has been signed electronically.
--- NOTE | 2019-12-16 09:11 | OP.COLON_ITS ---
Patient Name: Saida Craig Procedure Date: 12/16/2019 7:54 AM Date of : 1945 Age: 74 Procedure: Colonoscopy Indications: High risk colon cancer surveillance: Personal history of colonic polyps Providers: Chacha Scott MD Referring MD: Vlad Dennis MD Medicines: Monitored Anesthesia Care Patient Profile: This is a 74 year old female. Last Colonoscopy: 8 years ago. Complications: No immediate complications. Procedure: Pre-Anesthesia Assessment: - Prior to the procedure, a History and Physical was performed, and patient medications and allergies were reviewed. The patient's tolerance of previous anesthesia was also reviewed. The risks and benefits of the procedure and the sedation options and risks were discussed with the patient. All questions were answered, and informed consent was obtained. Prior Anticoagulants: The patient has taken no previous anticoagulant or antiplatelet agents. ASA Grade Assessment: Per anesthesia. After reviewing the risks and benefits, the patient was deemed in satisfactory condition to undergo the procedure. After I obtained informed consent, the scope was passed under direct vision. Throughout the procedure, the patient's blood pressure, pulse, and oxygen saturations were monitored continuously. The Colonoscope was introduced through the anus and advanced to the cecum, identified by the ileocecal valve. The colonoscopy was performed without difficulty. The patient tolerated the procedure well. The quality of the bowel preparation was good. Scope In: 8:06:27 AM Scope Withdrawal Time 0 hours 33 minutes 12 seconds Scope Out: 8:47:32 AM Total Procedure Duration Time 0 hours 41 minutes 5 seconds Findings: Hemorrhoids were found on perianal exam. Two semi-pedunculated polyps were found in the rectum and recto-sigmoid colon. The polyps were 3 to 5 mm in size. These polyps were removed with a hot snare. Polyp resection was complete, and the resected tissue was partially retrieved. Rectal polyp snared-removed completely- not retrieved, rectosigmoid polyp snared-removed completely and retrieved Four sessile polyps were found in the recto-sigmoid colon. The polyps were less than 5 mm in size. These polyps were removed with a cold biopsy forceps. Resection and retrieval were complete. A 7 mm polyp was found in the sigmoid colon. The polyp was semi-pedunculated. The polyp was removed with a hot snare. Resection and retrieval were complete. Area was tattooed with an injection of Karen ink. tattoo is inferior and proximal to polypectomy site Internal hemorrhoids were found. The hemorrhoids were Grade I (internal hemorrhoids that do not prolapse). Impression: - Hemorrhoids found on perianal exam. - Two 3 to 5 mm polyps in the rectum and at the recto-sigmoid colon, removed with a hot snare. Complete resection. Partial retrieval. - Four less than 5 mm polyps at the recto-sigmoid colon, removed with a cold biopsy forceps. Resected and retrieved. - One 7 mm polyp in the sigmoid colon, removed with a hot snare. Resected and retrieved. Tattooed. - Internal hemorrhoids. Recommendation: - Discharge patient to home. - Repeat colonoscopy 1-3 years for surveillance based on pathology results. - Continue present medications. Procedure Code(s): --- Professional --- 13913, PT, Colonoscopy, flexible; with removal of tumor(s), polyp(s), or other lesion(s) by snare technique 96711, 59, Colonoscopy, flexible; with biopsy, single or multiple 69000, Colonoscopy, flexible; with directed submucosal injection(s), any substance Diagnosis Code(s): --- Professional --- Z86.010, Personal history of colonic polyps K64.0, First degree hemorrhoids K62.1, Rectal polyp D12.7, Benign neoplasm of rectosigmoid junction D12.5, Benign neoplasm of sigmoid colon CPT copyright 2017 [employer]. All rights reserved. The codes documented in this report are preliminary and upon coil winding supervisor review may be revised to meet current compliance requirements. MD Chacha House MD 12/16/2019 9:10:28 AM This report has been signed electronically. Number of Addenda: 0 Note Initiated On: 12/16/2019 7:54 AM
== END 2019-12-16 09:40 | disposition home or self-care (01) ==
LOC: EN 06:46 → AC 06:47
PROVIDERS: Anesthesiology; PCP Family Medicine; Referring Provider Family Medicine; Visit Provider Surgery
PROC: 0DJD8ZZ Inspection of Lower Intestinal Tract, Via Natural or Artificial Opening Endoscopic (ICD-10-PCS; CPT 45378; principal; 2019-12-16 07:55)
DX: Z12.11 Encounter for screening for malignant neoplasm of colon (principal); D12.7 Benign neoplasm of rectosigmoid junction; D12.5 Benign neoplasm of sigmoid colon; K62.1 Rectal polyp; K64.0 First degree hemorrhoids; K21.9 Gastro-esophageal reflux disease without esophagitis; J44.9 Chronic obstructive pulmonary disease, unspecified; Z86.010 Personal history of colon polyps; Z85.118 Personal history of other malignant neoplasm of bronchus and lung; Z87.891 Personal history of nicotine dependence; Z79.899 Other long term (current) drug therapy; Z11.59 Encounter for screening for other viral diseases; Z80.0 Family history of malignant neoplasm of digestive organs
CPT/HCPCS: 45380; 45381; 45385; 87635; 88305; G2023; J7120; A4648; J2405; U0003

== ENCOUNTER → 2020-02-12 08:44 | Outpatient (CLI) | payer MEDICARE, OTHER, SELFPAY ==
[2020-02-11 08:53] VITALS: BMI 24.1
== END ==
PROVIDERS: PCP Family Medicine; Referring Provider Physician Assistant Medical; Visit Provider Physician Assistant Medical
DX: R00.0 Tachycardia, unspecified (principal)
CPT/HCPCS: 93225; 93226

== ENCOUNTER → 2020-05-02 13:05 | Outpatient (CLI) | payer MEDICARE, OTHER, SELFPAY ==
[2020-02-11 08:53] VITALS: BMI 24.1
[2020-04-26 10:52] VITALS: BMI 25.6
--- NOTE | 2020-05-02 13:06 | CT_ITS ---
STUDY: CT CHEST WITH CONTRAST REASON FOR EXAM: Female, 74 years old. MONITORING LUNG CA-HAD RAD TX AND CHEMO, LAST CHEMO DECEMBER 2014. RT LUNG SURG, cholecystectomy, hernia repair, NATALIE/BSO, appendectomy RADIATION DOSAGE (If Supplied By Facility): CTDIvol = ( 10.44 ) mGy, DLP = ( 264.65 ) mGycm TECHNIQUE: Transaxial imaging was performed following intravenous administration of IV 100mL Isovue-300. Individualized dose optimization techniques were used for this CT. COMPARISON: 04/30/2019 FINDINGS: Mild emphysematous changes. No change in right apical scarring. No change in scarring and atelectasis in the medial right lung in the right middle lobe and right lower lobe from radiation therapy. 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 Similarly, there is been an increase in the bulk of the scarring in the anterior left upper lobe the lungs with a 1.0 x 1.5 cm nodular component worrisome for tumor and correlation with PET CT scan is recommended. There is no demonstrated pleural abnormality. Normal heart and pericardium. Normal mediastinum. Normal hilar regions. Normal enhanced pulmonary arteries. Normal aorta arch and descending thoracic aorta. Normal osseous structures. Status post cholecystectomy. CT/Chest WITH Contrast IMPRESSION: Increase in the bulk of the left apical and lingular scarring worrisome for metastatic bronchogenic carcinoma in correlation with PET CT scan is recommended. Electronically Signed: Rodney Skinner MD at 13:11 EDT Tel , Service support ,
[2020-05-02 13:20] LABS: CREATININE FINGERSTICK 0.8 mg/dL (0.55-1.02)
== END ==
PROVIDERS: PCP Family Medicine; Referring Provider Internal Medicine Medical Oncology; Visit Provider Internal Medicine Medical Oncology
DX: C34.12 Malignant neoplasm of upper lobe, left bronchus or lung (principal)
CPT/HCPCS: 71260; Q9967

== ENCOUNTER → 2020-09-07 09:48 | Outpatient (CLI) | payer MEDICARE, OTHER, SELFPAY ==
[2020-08-31 09:21] VITALS: BMI 25.7
--- NOTE | 2020-09-07 09:52 | RAD_ITS ---
STUDY: X-RAY - SACRUM/COCCYX REASON FOR EXAM: Female, 75 years old. Pt moved seats in the front of car and hit low back against the middle console 2 months ago, pain still-more left side TECHNIQUE: 3 view(s) of the sacrum and coccyx were obtained. COMPARISON: None. FINDINGS: There is degenerative arthrosis of the bilateral sacroiliac joints. Normal visualized sacral ala and fused sacral bodies. Normal sacrococcygeal junction with a normal angulation. Normal coccygeal segments. The presacral soft tissue structures are unremarkable. RAD/Sacrum-Coccyx min 2 Views IMPRESSION: Degenerative changes of the sacroiliac joints. Electronically Signed: Kingsley Clements MD at 15:36 EST , Service support ,
== END ==
PROVIDERS: PCP Family Medicine; Referring Provider Family Medicine; Visit Provider Family Medicine
DX: S39.92XA Unspecified injury of lower back, initial encounter (principal); W19.XXXA Unspecified fall, initial encounter
CPT/HCPCS: 72220

== ENCOUNTER → 2020-09-08 07:34 | Outpatient (CLI) | payer MEDICARE, OTHER, SELFPAY ==
[2020-08-31 09:21] VITALS: BMI 25.7
[2020-09-08 11:01] LABS: Anion Gap 6 (5-15); BUN 17 mg/dL (7-18); BUN/Creat Ratio 19.9 RATIO (10-20); Calcium,Total 9.3 mg/dL (8.5-10.1); Chloride 108 mmol/L (98-107); Cholesterol 210 mg/dL (200); Creatinine, Serum 0.86 mg/dL (0.55-1.02); EST Glomerular Filtration Rate 69 mL/min (>60); Est Glom Filt Rate - Afr Amer 84 mL/min (>60); Glucose 99 mg/dL (74-106); High Density Lipoprotein 52 mg/dL; Sodium Level 141 mmol/L (136-145); Triglycerides 135 mg/dL; Very Low Density Lipoprotein 27 mg/dL (5-40)
== END ==
PROVIDERS: PCP Family Medicine; Referring Provider Family Medicine; Visit Provider Family Medicine
DX: I10 Essential (primary) hypertension (principal)
CPT/HCPCS: 36415; 80048; 80061

== ENCOUNTER → 2020-11-14 07:43 | Outpatient (CLI) | payer MEDICARE, OTHER, SELFPAY ==
[2020-08-31 09:21] VITALS: BMI 25.7
--- NOTE | 2020-11-14 07:44 | CT_ITS ---
STUDY: CT CHEST WITH CONTRAST REASON FOR EXAM: Female, 75 years old. Six-month follow-up for lung nodule. History of lung cancer with chemotherapy and radiation therapy. RADIATION DOSAGE (If Supplied By Facility): CTDIvol = ( 10.44 ) mGy, DLP = ( 260.85 ) mGycm TECHNIQUE: Transaxial imaging was performed following intravenous administration of IV 100mL Isovue-300. Multiplanar coronal and sagittal images were reformatted. Individualized dose optimization techniques were used for this CT. COMPARISON: Comparison is made with prior study dated 05/02/2020. FINDINGS: Hyperinflation. Emphysematous changes worse in the upper lobes. Stable 1.2 cm x 1.4 cm spiculated nodule in the left lung apex suggestive of possible scarring. Stable mild scarring at the right lung apex as well. Mild increase in size of the irregular nodule in the anterior aspect of the lingular segment of the left upper lobe. It presently measures 1.6 cm x 1.2 cm. There is a new left pleural effusion. 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 Normal mediastinum. Normal hilar regions. Normal enhanced pulmonary arteries. Normal aorta arch and descending thoracic aorta. There are degenerative changes of the thoracic spine. There is no demonstrated abnormality of the visualized upper abdomen. CT/Chest WITH Contrast IMPRESSION: Mild increase in size of the previously seen nodular density in the anterior aspect of the lingular segment of the left upper lobe. New small left pleural effusion. Electronically Signed: Kingsley Clements MD at 10:08 EDT , Service support ,
== END ==
PROVIDERS: PCP Family Medicine; Referring Provider Internal Medicine Medical Oncology; Visit Provider Internal Medicine Medical Oncology
DX: R91.8 Other nonspecific abnormal finding of lung field (principal); C34.2 Malignant neoplasm of middle lobe, bronchus or lung; J90 Pleural effusion, not elsewhere classified
CPT/HCPCS: 71260; Q9967

== ENCOUNTER → 2020-11-25 08:27 | Outpatient (CLI) | payer MEDICARE, OTHER, SELFPAY ==
[2020-08-31 09:21] VITALS: BMI 25.7
[2020-11-21 13:34] VITALS: BMI 25.4
--- NOTE | 2020-11-25 08:29 | BI_ITS ---
MAMMOGRAPHY - BILATERAL SCREENING REASON FOR EXAM: Female, 75 years old. Routine annual screening examination. PERTINENT HISTORY: Aunt with breast cancer. History of treated lung cancer. TECHNIQUE: Digital bilateral breast moon (3D mammographic acquisition) in the CC and MLO projections. 2-D mediolateral oblique (MLO) and craniocaudad (CC) views of both breasts were obtained. CAD: Full Field Digital Mammography with Computer Added Detection was performed. COMPARISON: Comparison is made with prior study dated 10/19/2019 and 10/16/2018. FINDINGS: Breast Composition: The breasts are extremely dense, which lowers the sensitivity of mammography. There are no dominant masses or suspicious calcifications. No other significant abnormalities are identified. There has been no significant change since the prior study. BI/SCRN MAMM (CAD)W/MOON BILAT IMPRESSION: Stable bilateral screening mammogram. Yearly follow-up mammogram recommended. (A) ASSESSMENT CATEGORY: BIRADS Category 1: Negative. A letter regarding these results will be sent to the patient by the facility within 30 days. Approximately 10% of breast cancers are not detected by mammography. A normal mammogram should not delay biopsy of a clinically suspicious abnormality. [id number] Electronically Signed: Kingsley Clements MD at 10:01 EDT , Service support ,
== END ==
PROVIDERS: PCP Family Medicine; Referring Provider Family Medicine; Visit Provider Family Medicine
DX: Z12.31 Encounter for screening mammogram for malignant neoplasm of breast (principal)
CPT/HCPCS: 77063; 77067

== ENCOUNTER → 2020-11-28 14:03 | Outpatient (CLI) | payer MEDICARE, OTHER, SELFPAY ==
[2020-11-21 13:34] VITALS: BMI 25.4
--- NOTE | 2020-11-28 | IMM_PTH ---
PATIENT: GEE LAURA LOC: [facility]#:[id number] AGE/SX: 79/F ROOM: RE11/28/[address]: Dr. Timmy Hartmann MD : 1945 BED: DIS: SPEC #: [id number] RECD: 11/30/20 11:58 STATUS: ISACC REQ #: [id number] LUCY: 11/28/20 00:[address]: Timmy Hartmann DEPT: IMMUNOHISTOCHEMISTRY RECD BY: Marisol Greene ENTERED: 11/30/20 12:01 SP TYPE: IMMUNO OTHR DR: Dr. Vlad Dennis MD Tissues: THORACIC FLUID Procedures: NAPSIN A (add) CK20 (add) CK5-6 (add) CK7 (add) CK8 (add) PHILIP-2 (add) E-CAD (add) HER2 JULIA (add) KI-67 (add) MAMM (add) P53 (add) ND (add) TTF1 (add) Vimentin (add) 34BE12 (add) Pankeratin (add) GATA3 (add) P40 (add) CDX2 (add) ER (initial) S-100 (add) PHYSICIAN & INSTITUTION [place] [id number] SPECIMEN INFORMATION: Tissue Source: Thoracentesis fluid Clinical Info: Pleural effusion Specimen Number: [id number] CPT code: 78563, 87431 x20 METHODOLOGY: Deparaffinized sections of prefer/formalin-fixed tissue or PAP/DQ stained slides are incubated with monoclonal/polyclonal antibodies/oligonucleotide probes. Localization is made via biotin free immunoperoxidase method. Appropriate controls are performed and reacted as expected. Results on target cell population are indicated in the following table: RESULTS: ANTIBODY / CLONE RESULT ER (6F11) negative ND (1E2) negative Her-2neu (CB11) negative E-Cad (ECH-6) positive Mammaglobin (31A5) negative GATA3 (L50-823) negative AE1-3 (AE1/AE3/PCK26) positive CK7 (OV-TL12/30) positive CK8 (93sblcE91) positive CK20 (KS20.8) negative PHILIP-2 (SP21) positive CDX2 ([id number]) negative Vimentin (V9) negative 34BE12 (34BE12) positive S-100 (4C4.9) negative TTF-1 (8G7G3/1) positive Napsin A (Rabbit Polyclonal) positive P53 (DO-7) positive, 75% Ki-67 (30-9) positive, low P40 (BC28) negative CK5-6 (D5 & 1684) negative These tests were developed and their performance characteristics determined by [facility]. They may not have been cleared or approved by the U.S. Food and Drug Administration. The FDA has determined that such clearance or approval is not necessary. The above immunohistochemical/dualISH markers are ordered and reviewed by the Pathologist. INTERPRETATION: Thoracentesis fluid: Adenocarcinoma consistent with lung primary. AM:kevin 12/02/2020 Case has been reviewed in consultation with Dr. Oquendo who concurs with the above diagnosis. IDC:SJ
--- NOTE | 2020-11-28 | FLU_PTH ---
PATIENT: GEE LAURA LOC: [facility]#:[id number] AGE/SX: 79/F ROOM: RE11/28/[address]: Dr. Timmy Hartmann MD : 1945 BED: DIS: SPEC #: [id number] RECD: 11/28/20 14:51 STATUS: ISACC REPetrona #: [id number] LUCY: 11/28/20 00:[address]: Timmy Hartmann DEPT: CYTOLOGY RECD BY: Delfino Martel ENTERED: 11/29/20 09:49 SP TYPE: Fluid OTHR DR: Dr. Vlad Dennis MD Tissues: THORACIC FLUID Procedures: Special Stain Group II Surgery Specimen Level IV Cytospin Fluid HEADER OPERATION: Thoracentesis left PRE-OP DIAGNOSIS: Pleural effusion TISSUE SUBMITTED: Thoracentesis fluid for cytology DIAGNOSIS CYTOLOGY Thoracentesis fluid for cytology (cytospin and cell block): Metastatic adenocarcinoma. See comment. AM:kevin 11/30/2020 COMMENT Immunohistochemistry ([id number]) supports the above diagnosis and is consistent with a lung primary. Case has been reviewed in consultation with Dr. Oquendo who concurs with the above diagnosis. IDC:[facility] CYTOLOGY STUDY Slides are reviewed. CYTOLOGY GROSS Received is 21 ml of cloudy rhett fluid labeled with the patient's name and and designated per the requisition as thoracentesis. Submitted for cytology preparation including cell block. / rg 11/29/2020 TC:0 [facility]: [id number] ADDENDUM ADDENDUM ADDENDUM ADDENDUM ADDENDUM ADDENDUM ADDENDUM ADDENDUM ADDENDUM ADDENDUM ADDENDUM ADDENDUM ADDENDUM 12/23/2020 10:31 ADDENDUM 12/23/2020 10:31 ADDENDUM 12/23/2020 10:31 ADDENDUM 12/23/2020 10:31 ADDENDUM 12/23/2020 10:31 [facility] ADV[facility]ED LUNG CANCER NGS FROM [facility] RESULT SUMMARY: Abnormal PERTINENT NEGATIVE RESULTS: The following genes are NEGATIVE for clinically relevant mutations. Mutational hotspots and surrounding exonic regions were interrogated for DNA level point mutations and indels (fusions not assayed). AKT1, ALK, BRAF, DDR2, ERBB2, FGFR1, KRAS, MAP2K1, MET, NRAS, NTRK1, POLD1, POLE, STK11, TERT Please see complete report in e-chart or EMR
--- NOTE | 2020-11-28 14:04 | US_ITS ---
STUDY: DIAGNOSTIC THORACENTESIS REASON FOR EXAM: Female, 75 years old. LEFT PLEURAL EFFUSION, lung cancer TECHNIQUE: Sonographically guided COMPARISON: None. FINDINGS: After informed consent was obtained, the patient was placed in an upright sitting position leaning on the bedside table. An appropriate site for thoracentesis was determined using sonographic guidance in the left hemithorax. After the site was marked, sterile gloves were put on, and the area was prepped and draped in a sterile manner. 2% XYLOCAINE was used as local anesthetic. A valved Ole catheter was advanced into the left hemithorax and approximately 30 ml of cloudy straw-colored fluid was withdrawn from the left hemithorax and sent to the lab for further evaluation. Patient tolerated procedure well with no immediate complications, and post procedural chest x-ray did not demonstrate a pneumothorax. US/Thoracentesis W US IMPRESSION: Successful sonographically guided thoracentesis Electronically Signed: Jose Rafael Wilson MD at 16:04 EDT , Service support ,
--- NOTE | 2020-11-28 14:34 | RAD_ITS ---
STUDY: X-RAY CHEST REASON FOR EXAM: Female, 75 years old. Post thoracentesis TECHNIQUE: 2 AP portable views, one in inspiration one in expiration. COMPARISON: CT scan from 11/14/2020 FINDINGS: Post thoracentesis chest x-ray did not show evidence of a pneumothorax. Chronic interstitial changes in both lung [place] with stable likely post therapeutic scarring in the right perihilar region as well as poorly defined opacification in the left upper lobe corresponding to a known nodular density. After thoracentesis there is only a tiny residual left pleural effusion. Normal size heart. Normal mediastinum and aleja. Normal visualized pulmonary arteries. Normal visualized aortic arch and descending thoracic aorta. Normal visualized thoracic spine. Normal visualized ribs, clavicles, and shoulders. There is no demonstrated abnormality of the visualized soft tissue structures of the upper abdomen. RAD/Chest Insp/Exp 2 View IMPRESSION: No postprocedural pneumothorax Electronically Signed: Jose Rafael Wilson MD at 14:54 EDT , Service support ,
[2020-11-28 14:54] VITALS: BP 117/69; BP 118/67; BP 123/74; PULSE 101; PULSE 104; PULSE 106; RESP 16; RESP 18; TEMP 36.3; O2SAT 95; O2SAT 96
== END ==
PROVIDERS: PCP Family Medicine; Referring Provider Internal Medicine Medical Oncology; Visit Provider Internal Medicine Medical Oncology
DX: J90 Pleural effusion, not elsewhere classified (principal); R91.1 Solitary pulmonary nodule; Z85.118 Personal history of other malignant neoplasm of bronchus and lung
CPT/HCPCS: 32555; 71046; 88108; 88305; 88313; 88341; 88342

== ENCOUNTER → 2020-11-30 08:02 | Outpatient (CLI) | payer MEDICARE, OTHER, SELFPAY ==
[2020-11-21 13:34] VITALS: BMI 25.4
[2020-11-30] VITALS (9 sets, daily range): BP systolic 93–129; BP diastolic 60–89; PULSE 94–105; RESP 16–18; TEMP 36.3; O2SAT 18–100; BMI 24.7
--- NOTE | 2020-11-30 07:47 | RAD_ITS ---
STUDY: X-RAY CHEST REASON FOR EXAM: Female, 75 years old. Post lung biopsy -- immediately post lung biopsy TECHNIQUE: Portable Inspiration and expiration upright views COMPARISON: 11/28/2020 FINDINGS: EKG leads overlie the chest Lungs are expanded, stable right perihilar and left apical lesions. No organized infiltrate effusion or postprocedural pneumothorax noted. There is no demonstrated pleural abnormality. Normal size heart. Normal mediastinum and aleja. Normal visualized pulmonary arteries. Normal visualized aortic arch and descending thoracic aorta. There are diffuse degenerative changes of the visualized thoracic spine. There is degenerative osteoarthritis of the bilateral shoulders. There is no demonstrated abnormality of the visualized soft tissue structures of the upper abdomen. RAD/Chest Insp/Exp 2 View IMPRESSION: No postprocedural pneumothorax Chronic interstitial changes with stable right perihilar and left upper lobe lesions. No interval change since the previous study Electronically Signed: Jose Rafael Wilson MD at 10:26 EDT , Service support ,
--- NOTE | 2020-11-30 08:12 | CT_ITS ---
STUDY: CT-guided left lung biopsy REASON FOR EXAM: Female, 75 years old. Enlarging left lung lesion RADIATION DOSAGE (If Supplied By Facility): CTDIvol = ( ) mGy, DLP = ( ) mGycm. Individualized dose optimization techniques were used for this CT.? FLUOROSCOPY TIME (if supplied): ( 1 ) minute TECHNIQUE: CT-guided COMPARISON: CT scan of the chest from 11/14/2020 FINDINGS: After informed consent was obtained, patient was placed in the CT scanner in the supine position. Appropriate site for CT-guided biopsy was determined using CT guidance. The area was marked. The area was prepped and draped in a sterile manner which included wearing a sterile gloves. The skin site after prep was anesthetized with 2% XYLOCAINE. Patient was also given 2 mg of VERSED and 50 mcg of FENTANYL for conscious sedation. After receiving the conscious sedation medication, patient began to hiccup, and changed her breath holding pattern. This caused the original marking area to be changed two other times. An attempt was made to enter the lesion in question, however, the needle was deemed to be only on the periphery of the lesion and not within the lesion itself. At this time, a small pneumothorax was noted and the patient began to cough. Another attempt was made to place the needle within the lesion, however, when the needle was moved to the appropriate site, an anterior rib was blocking the needle path. After this attempt, patient began to cough uncontrollably and still was having occasional hiccups. Due to the coughing, the lesion again was noted to have moved from its original marking and it was decided that no more attempts should be made. This was discussed with the patient who understood, a post biopsy chest x-ray did not show evidence of a pneumothorax. Another will be performed in 2 hours. Patient was observed for 45 minutes then returned to her room in stable condition CT/Biopsy/Inj or Needle Placement IMPRESSION: Unsuccessful attempt at CT-guided biopsy for lung lesion Electronically Signed: Jose Rafael Wilson MD at 10:24 EDT , Service support ,
[2020-11-30 08:16] LABS: Absolute Lymphocyte Count 0.54 X10^3/uL (0.83-4.51); Absolute Neutrophil Count 5.8 X10^3/uL (2.0-7.7); Basophil# 0.05 X10^3/uL; Basophil% 0.7 % (0-1); Eosinophil# 0.45 X10^3/uL; Eosinophils% 5.9 % (0-5); Hematocrit 40.8 % (37-47); Lymphocyte # 0.54 X10^3/ul (0.83-4.51); Lymphocyte % 7.1 % (19-41); Mean Corp Hgb Conc 31.9 g/dL (32-36); Mean Corpuscular Hgb 29.2 pg (27.0-32.0); Mean Corpuscular Volume 91.7 fL (81-99); Mean Platelet Vol. 9.9 fl (6.2-12.0); Monocyte# 0.75 X10^3/uL; Monocyte% 9.9 % (0-10); NRBC Flagged by Analyzer 0 % (0-5); Neutrophil # 5.78 X10^3/uL (2.7-7.7); POSITIVE DIFFERENTIAL YES; Platelet Count 261 K/mm3 (150-450); RBC Distribution Width CV 12.6 % (11.6-14.6); RBC Distribution Width SD 41.8 fl (35.1-43.9); Red Blood Count 4.45 M/mm3 (4.2-5.4); White Blood Count 7.6 K/mm3 (4.4-11.0)
[2020-11-30 08:20] LABS: Differential Indicated SCAN CRITERIA MET
[2020-11-30 08:29] LABS: Prothrombin Time (Protime)PT. 12.9 SECONDS (11.7-14.9)
[2020-11-30 08:30] LABS: Partial Thromboplast Time 25.3 Seconds (24.1-36.2)
[2020-11-30] MEDS: fentaNYL 100 MCG/2 ML Ampul IV (09:11)
[2020-11-30] MEDS: Midazolam 2 MG/2 ML Syringe IV (09:11)
--- NOTE | 2020-11-30 11:55 | RAD_ITS ---
STUDY: X-RAY CHEST REASON FOR EXAM: Female, 75 years old. Post lung biopsy -- 2 hours post lung biopsy TECHNIQUE: Inspiration and expiration views. COMPARISON: Earlier today FINDINGS: Inspiration and expiration views were performed, no postbiopsy pneumothorax noted. Stable hyperexpanded lungs with interstitial changes and stable right hilar and left apical nodules. Normal size heart. Normal mediastinum and aleja. Normal visualized pulmonary arteries. Normal visualized aortic arch and descending thoracic aorta. Normal visualized thoracic spine. Normal visualized ribs, clavicles, and shoulders. There is no demonstrated abnormality of the visualized soft tissue structures of the upper abdomen. RAD/Chest Insp/Exp 2 View IMPRESSION: No interval change, no demonstrated pneumothorax Electronically Signed: Jose Rafael Wilson MD at 12:03 EDT , Service support ,
== END ==
PROVIDERS: PCP Family Medicine; Referring Provider Internal Medicine Medical Oncology; Visit Provider Internal Medicine Medical Oncology
DX: Z01.812 Encounter for preprocedural laboratory examination (principal); R91.1 Solitary pulmonary nodule; I26.99 Other pulmonary embolism without acute cor pulmonale; R07.9 Chest pain, unspecified; J44.9 Chronic obstructive pulmonary disease, unspecified; F17.200 Nicotine dependence, unspecified, uncomplicated; Z85.118 Personal history of other malignant neoplasm of bronchus and lung; Z53.8 Procedure and treatment not carried out for other reasons
CPT/HCPCS: 32408; 36415; 71046; 77012; 85025; 85610; 85730; 99156; J7040

== ENCOUNTER → 2020-12-14 07:54 | Outpatient (CLI) | payer MEDICARE, OTHER, SELFPAY ==
[2020-12-08 14:28] VITALS: BMI 25.2
--- NOTE | 2020-12-14 07:55 | MRI_ITS ---
STUDY: MRI BRAIN WITH AND WITHOUT CONTRAST REASON FOR EXAM: Female, 75 years old. RESTAGING LUNG CANCER TECHNIQUE: Standardized multiplanar fat and water weighted pulse sequences were obtained. 12ML IV DOTAREM was administered for the contrast portion of the examination. COMPARISON: 09/09/2014 MRI brain FINDINGS: Normal size of the ventricles and extra-axial spaces for the patient''s age. There are a limited number of small white matter hyperintensities, distributed throughout the deep white matter tracts of the cerebral hemispheres, consistent with mild chronic white matter ischemic changes. There is no evidence for recent intracranial ischemia or other cause of cytotoxic edema on diffusion weighted imaging (DWI). Normal T2* images of the brain without demonstrated susceptibility artifact. There is no demonstrated hemosiderin stain. Normal bilateral basal ganglia. Normal thalami. There is no extra-axial fluid accumulation. Normal flow voids within the major intracranial circulation suggesting patency by spin echo criteria. Normal venous enhancement. There is no enhancing intra-axial or extra-axial abnormality. Normal sella turcica, pituitary gland, infundibular stalk, optic chiasm and hypothalamus. Normal tectal plate and pineal gland. Normal midbrain, melissa and medulla. Normal cerebellum. Normal basal cisterns. Normal bilateral temporal bones. Normal bilateral internal auditory canals. No demonstrated orbital abnormality, within the constraints of a routine brain study. Normal visualized paranasal sinuses. Normal calvarium and skull base. Normal visualized soft tissue structures. Normal visualized upper cervical spine. IMPRESSION: No evidence of acute intracranial bleed, mass or ischemia. Electronically Signed: Marino Starks DO at 11:00 EDT , Service support , MRI/Brain W/WO Contrast
== END ==
PROVIDERS: PCP Family Medicine; Referring Provider Internal Medicine Medical Oncology; Visit Provider Internal Medicine Medical Oncology
DX: C34.90 Malignant neoplasm of unspecified part of unspecified bronchus or lung (principal)
CPT/HCPCS: 70553; A9575

== ENCOUNTER → 2021-04-27 12:06 | Outpatient (CLI) | payer MEDICARE, OTHER, SELFPAY | PROVIDERS: PCP Family Medicine; Referring Provider Internal Medicine Pulmonary Disease; Visit Provider Internal Medicine Pulmonary Disease | DX: U07.1 COVID-19 (principal); J44.9 Chronic obstructive pulmonary disease, unspecified; C34.90 Malignant neoplasm of unspecified part of unspecified bronchus or lung | CPT/HCPCS: 87635; C9803; U0005; U0003 ==

== ENCOUNTER → 2021-05-18 08:18 | Outpatient (CLI) | payer MEDICARE, OTHER, SELFPAY ==
--- NOTE | 2021-05-18 08:19 | CT_ITS ---
STUDY: CT CHEST WITH CONTRAST REASON FOR EXAM: Female, 75 years old. MONITOR LUNG CANCER. Non-small cell lung cancer. Patient has been treated with chemotherapy. RADIATION DOSAGE (If Supplied By Facility): CTDIvol = ( 8.34 ) mGy, DLP = ( 236.07 ) mGycm TECHNIQUE: Transaxial imaging was performed following intravenous administration of IV 100mL Isovue-300. Multiplanar coronal and sagittal images were reformatted. Individualized dose optimization techniques were used for this CT. COMPARISON: Comparison is made with prior study dated 11/14/2020. FINDINGS: Hyperinflation. Emphysematous changes. There is a 1.3 cm x 2.4 cm spiculated nodule in the left lung apex. This has increased in size as compared to prior study. There is also evidence of a 1.1 cm nodule in the right lung apex. A linear density posteriorly extends to the pleural surface. This most likely represents scarring. This is unchanged. Stable airspace disease in the right perihilar region with the evidence of bronchiectasis. This extends into the superior segment of the right lower lobe suggestive of post radiation changes. Stable thickening of the right minor fissure. The previously seen nodule in the anterior aspect of the left upper lobe has decreased in size as seen on axial image #49. It presently measures 8.5 mm. The previously seen left pleural effusion as clear. Mild residual bibasilar scarring is seen. There are calcifications of the coronary arteries. Normal mediastinum. Normal hilar regions. Normal enhanced pulmonary arteries. Normal aorta arch and descending thoracic aorta. There are multi-level degenerative changes of the thoracic spine. There is no demonstrated abnormality of the visualized upper abdomen. CT/Chest WITH Contrast IMPRESSION: The previously seen pulmonary nodules have decreased in size except for the suspected nodule in the left lung apex which is increased in size. Electronically Signed: Kingsley Clements MD at 15:31 EDT , Service support ,
[2021-05-18 08:35] LABS: CREATININE FINGERSTICK 0.7 mg/dL (0.55-1.02); EGFR FINGERSTICK > 60.0000 mL/min (>60)
== END ==
PROVIDERS: PCP Family Medicine; Referring Provider Internal Medicine Medical Oncology; Visit Provider Internal Medicine Medical Oncology
DX: C34.12 Malignant neoplasm of upper lobe, left bronchus or lung (principal)
CPT/HCPCS: 71260; Q9967

== ENCOUNTER 2021-08-25 08:48 | Outpatient (CLI) | payer MEDICARE, OTHER, SELFPAY ==
--- NOTE | 2021-08-25 08:52 | ECHODONC_ITS ---
Reason For Study: Non Rheumatic MR Procedure This was a 2D Doppler, Color Flow transthoracic echocardiogram. Exam performed in department. Left Ventricle Normal LV size. Left ventricular systolic function is normal. The estimated ejection fraction is 55 %. No regional wall motion abnormalities noted. Right Ventricle Normal RV size. Normal systolic function. Atria Normal left atrium. Normal right atrium. Mitral Valve Normal mitral valve. Tricuspid Valve Normal tricuspid valve. Aortic Valve Normal aortic valve. Trisinus/trileaflet aortic valve. Pulmonic Valve Normal pulmonic valve. Trivial pulmonic valve insufficiency. Great Vessels Normal aortic root. The pulmonary artery is normal size. Normal inferior vena cava. Pericardium/Pleural No pericardial effusion. MMode/2D Measurements & Calculations LVIDd: 3.9 cm IVSd: 1.1 cm Ao root diam: 3.3 cm LVIDs: 2.7 cm LVPWd: 1.0 cm LA dimension: 2.5 cm RVDd: 2.4 cm FS: 31.0 % LAV(MOD-bp): 23.2 ml LA A4 area: 10.0 cm2 RA A4 area: 9.3 cm2 LAV(MOD-bp) Indexed: 14.8 ml/m2 LAV(MOD-sp2): 24.2 ml LAV(MOD-sp4): 20.4 ml Time Measurements MV dec time: 0.19 sec Doppler Measurements & Calculations MV E max escobar: 66.1 cm/sec Lat Peak E' Escobar: 4.9 cm/sec Med Peak E' Escobar: 7.7 cm/sec MV A max escobar: 109.5 cm/sec E/E' lat: 13.5 E/E' med: 8.6 MV E/A: 0.60 Ao V2 max: 111.7 cm/sec LV V1 max: 77.0 cm/sec PA V2 max: 56.1 cm/sec Ao max P.0 mmHg LV V1 max P.4 mmHg ECHO/ONC Echo Complete Interpretation Summary Normal LV size. Left ventricular systolic function is normal. The estimated ejection fraction is 55 %. The global longitudinal strain is normal. The global longitudinal strain = -17. 3 % (normal). Ordering Physician: Aquiles Peralta Referring Physician: Vlad Dennis Performed By: Rojas Gonzales RCS
== END 2021-08-25 23:59 | disposition home or self-care (01) ==
PROVIDERS: PCP Family Medicine; Referring Provider Internal Medicine Cardiovascular Disease; Visit Provider Internal Medicine Cardiovascular Disease
DX: I34.0 Nonrheumatic mitral (valve) insufficiency (principal)
CPT/HCPCS: 93306; 93356

== ENCOUNTER 2021-09-07 08:29 | Outpatient (CLI) | payer MEDICARE, OTHER, SELFPAY ==
--- NOTE | 2021-09-07 08:31 | CT_ITS ---
STUDY: CT CHEST WITH CONTRAST REASON FOR EXAM: Female, 76 years old. ASSESS TREATMENT-LUNG CA RADIATION DOSAGE (If Supplied By Facility): CTDIvol = ( 9.68 ) mGy, DLP = ( 225.02 ) mGycm TECHNIQUE: Transaxial imaging was performed following intravenous administration of IV 100mL Isovue-300. Multiplanar coronal and sagittal images were reformatted. Individualized dose optimization techniques were used for this CT. COMPARISON: Comparison is made with prior examination dated 05/18/2021 FINDINGS: Stable spiculated heterogeneous nodule in the left lung apex. It measures 2.1 cm x 2 cm. There appears to be some bronchiectasis within it. The nodule in the right lung apex has increased slightly in size. It presently measures 1.3 cm x 1.2 cm. Stable bronchiectasis and pneumonitis along the right hilum as well as the superior medial segment of the right lower lobe. Stable 8.5 mm slightly spiculated nodule in the anterior aspect of the left upper lobe. Stable mild scarring at the lung bases. There are calcifications of the coronary arteries. Normal mediastinum. Normal hilar regions. Normal enhanced pulmonary arteries. Normal aorta arch and descending thoracic aorta. There is demineralization of the thoracic spine. There is no demonstrated abnormality of the visualized upper abdomen. CT/Chest WITH Contrast IMPRESSION: Essentially stable examination except for slight increase in size of the right lung apex nodule. Electronically Signed: Kingsley Clements MD at 10:45 EST ,
== END 2021-09-07 23:59 | disposition home or self-care (01) ==
LOC: CT 08:30
PROVIDERS: PCP Family Medicine; Referring Provider Internal Medicine Medical Oncology; Visit Provider Internal Medicine Medical Oncology
DX: C34.92 Malignant neoplasm of unspecified part of left bronchus or lung (principal)
CPT/HCPCS: 71260; Q9967

== ENCOUNTER 2021-09-13 07:37 | Outpatient (CLI) | payer MEDICARE, OTHER, SELFPAY ==
[2021-09-13 08:14] LABS: Cholesterol 198 mg/dL (200); High Density Lipoprotein 53 mg/dL; Triglycerides 170 mg/dL; Very Low Density Lipoprotein 34 mg/dL (5-40)
== END 2021-09-13 23:59 | disposition home or self-care (01) ==
LOC: PAVLAB 07:39
PROVIDERS: PCP Family Medicine; Referring Provider Family Medicine; Visit Provider Family Medicine
DX: I10 Essential (primary) hypertension (principal)
CPT/HCPCS: 36415; 80061

== ENCOUNTER 2021-09-16 16:06 | Inpatient (IN) | payer MEDICARE, OTHER, SELFPAY ==
[2021-09-16 16:07] VITALS: BP 171/94; PULSE 99; RESP 16; TEMP 36.6; O2SAT 100; BMI 22.8
--- NOTE | 2021-09-16 16:19 | EDS_ITS ---
HPI HPI - GI History of Present Illness Chief Complaint: Flank Pain Informant: patient Abdominal Pain/Flank Pain Onset: Today Timing: Continuous Quality: Sharp and Stabbing Current Severity: Moderate Maximum Severity: Severe Worsened by: Nothing Relieved by: Nothing Nausea/Vomiting/Emesis GI Symptom: Negative for Nausea and Vomiting Diarrhea/Melena/Hematochezia GI Symptom: Negative for Diarrhea, Melena and Hematochezia Associated Symptoms Associated Symptoms: Positive for Frequency; Negative for Dysuria, Hematuria and Urgency Narrative Narrative: 36-year-old female history of lung cancer on chemotherapy, prior pulmonary emboli and COPD. Patient states she had left flank pain began about an hour ago. She denies any dysuria just peeing small amounts infrequently. No fever or chills. She is never had a stone. No trauma. She denies any cloudy or bloody urine. Prior similar symptoms: No Recent Illness/Hospitalization: No PFSH PFS Medical History Anxiety Bilateral pulmonary embolism (11/06/14) Colitis COPD (chronic obstructive pulmonary disease) Depression Encounter for education Essential hypertension Exertional dyspnea Hepatitis A Lung cancer Lung mass Non-small cell lung cancer (NSCLC) Raynauds disease Skin cancer Ulcerative colitis Home Medications multivitamin with folic acid 1 tab PO DAILY 09/16/14 [History Last Taken Unknown] B-complex with vitamin C 1 tab PO DAILY 03/11/18 [History Last Taken Unknown] cholecalciferol (vitamin D3) 1,000 unit PO DAILY 05/04/19 [History Last Taken Unknown] loperamide 2 mg capsule 2 mg PO Q4H PRN 08/12/19 [History Last Taken Unknown] esomeprazole magnesium 20 mg capsule,delayed release 20 mg PO DAILY PRN 02/11/20 [History Last Taken Unknown] tiotropium bromide 18 mcg capsule with inhalation device 1 cap INHALATION DAILY 02/11/20 [History Last Taken 11/30/20] melatonin 10 mg capsule 10 mg PO HS PRN 11/21/20 [History Last Taken Unknown] Lactobacillus rhamnosus GG 15 billion cell sprinkle capsule 1 cap PO DAILY 12/29/20 [History Last Taken Unknown] albuterol sulfate 90 mcg/actuation aerosol inhaler 2 puff INHALATION Q6H PRN 12/29/20 [History Last Taken Unknown] dicyclomine 20 mg tablet 20 mg PO .QID tab 12/29/20 [History Last Taken Unknown] carvedilol 12.5 mg tablet 12.5 mg PO BID #90 tab 03/10/21 [Rx Last Taken Unknown] afatinib 30 mg tablet 30 mg PO DAILY 07/11/21 [History Last Taken Unknown] hyoscyamine sulfate 0.125 mg tablet 0.125 mg PO BID-QID PRN #30 tab 08/24/21 [Rx Last Taken Unknown] Allergy/AdvReac Type Severity Reaction Status Date / Time ipratropium [From Atrovent] Allergy Rash Verified 09/16/21 16:06 terbinafine HCl Allergy Rash Verified 09/16/21 16:06 [From Lamisil] lactose AdvReac Upset Verified 09/16/21 16:06 Stomach Family History Father Liver disease Mother Uterine cancer Brother Myocardial infarction, Onset Age: 60 Surgical History EBUS guided biopsy H/O hernia repair History of appendectomy History of bronchoscopy History of hysterectomy History of thoracentesis History of tonsillectomy Hx of cholecystectomy ulnar nerve release left elbow Social History Smoking Status: Former smoker Tobacco: How many years used: 40 second hand exposure: No details: occasionally substance use type: does not use ROS ROS ED ROS Narrative Left flank pain. Urinary frequency. Review of Systems ROS Unobtainable: Denies due to encephalopathy Constitutional Constitutional ED: Denies chills or fever(s) ENT ENT ED: Denies ear pain Cardiovascular Cardiovascular: Denies chest pain or palpitations Respiratory/Chest Respiratory/Chest: Denies cough, dyspnea or sputum Gastrointestinal Gastrointestinal: Denies abdominal pain or nausea Genitourinary Genitourinary ED: Reports urinary frequency; Denies dysuria or hematuria Musculoskeletal Musculoskeletal: Denies myalgias Integumentary Denies rash Neurologic Neurologic: Denies headache(s) Psychiatric Psychiatric: Denies depression Endocrine Endocrinology: Denies polyuria Hematologic/Lymphatic Hematologic/Lymphatic: Denies easy bruising Allergic/Immunologic Allergic/Immunologic ED: Denies urticaria EXAM Physical Exam Narrative Exam Narrative: 76-year-old female no acute distress. Vital signs stable and afebrile. H EENT exam unremarkable. Lungs clear to auscultation. Heart regular rhythm no murmur. Chest were nontender. Abdomen soft nontender. Normal bowel sounds no peritoneal signs. Back left flank tenderness just below the ribs. No ecchymosis or bruising. Moving all 4 extremities. Nontender no edema. Neurologic exam unremarkable. Const Vital Signs: 09/16/21 16:07 09/16/21 17:32 Temperature 98 F Temperature Source Temporal Pulse Rate 99 97 Respiratory Rate 16 22 H Blood Pressure 171/94 H 165/92 H Blood Pressure Mean 119 116 Pulse Ox 100 99 Oxygen Delivery Method Room Air Room Air Positive well nourished and well developed; Negative for obese, cachectic, contractures or unkempt General Appearance ED: well developed and NAD; Negative for unkempt, cachectic, contractures or pallor Nutritional Appearance: Negative for cachectic or obese HEENT Reports moist mucous membranes normocephalic Eyes PERRL and EOMs intact bilaterally General Eye ED: Negative for pale conjunctiva or scleral icterus Neck no lymphadenopathy, supple and no JVD General: Negative for tenderness Resp normal respiratory effort and clear to auscultation bilaterally Auscultation: Negative for rales, rhonchi or wheezes Cardio regular rate, regular rhythm, S1 normal heart sound, S2 normal heart sound and no murmurs GI non-tender, non-distended and no masses Auscultation: normoactive bowel sounds Palpation: soft; Negative for tender, guarding or rigid Back/Spine no CVA tenderness General Back: Negative for CVA tenderness Cervical Spine: Negative for cervical spine tenderness Thoracic Spine / Upper Back: Negative for thoracic spinal tenderness Extremity full ROM General Extremety ED: Yes edema; Negative for tenderness General Extremity: edema Neuro moves all extremities Sensorium / Orientation: alert, oriented to person, oriented to place and oriented to time; Negative for orientation impaired, confused, lethargic or stuporous Motor Exam: strength 5/5 throughout Psych mental status grossly normal and thought process normal Appearance: Negative for unkempt Attitude: No agitated Mood & Affect: Negative for depressed or tearful Skin no wounds General Skin Exam: Negative for jaundice or pallor Lesions: no lesions Rashes: no rashes and No rashes noted MDM MDM MDM Narrative Medical decision making narrative: 76-year-old with left flank pain. Reproducible pain on the left below the ribs. Urinalysis and labs pending. Holding off on imaging until her urinalysis is eluate. She will be treated with morphine and Zofran for pain. Repeat exam at 4:50 PM patient is returning from give a urine sample and she still having flank pain even after the morphine. She will be given a second dose of morphine. I also added a CT flank study. Repeat exam patient is doing well at 7:15 PM. Her pain is much better under control. She was given Zofran for nausea. She also be started on IV Rocephin for the urinary tract infection. She and a friend in the room was gone over her labs. I am going to admit her. I have the hospitalist on page. Lab Data Attestation: I reviewed the patient's lab results. Lab results narrative: CBC shows a normal white count of 6. H&H of 12.8 and 38. Normal platelets. Blood is unremarkable gap of 4. BUN of 22 creatinine 0.9. Glucose 104. Urinalysis positive for nitrates. 0-5 red cells 25-50 white cells no epithelial cells 2+ bacteria this is consistent with a urinary tract infection. A urine culture will be sent. CT flank showed a left UVJ 3 mm stone with hydronephrosis. Labs: Laboratory Results - last 24 hr 09/16/21 09/16/21 09/16/21 16:20 16:20 16:56 WBC 6.4 RBC 4.40 Hgb 12.8 Hct 38.9 MCV 88.4 MCH 29.1 MCHC 32.9 RDW Std Deviation 41.4 RDW Coeff of Hiram 12.7 Plt Count 302 MPV 10.5 Immature Gran % (Auto) 0.200 Neut % (Auto) 68.3 Lymph % (Auto) 18.3 L [place] % (Auto) 10.1 H Eos % (Auto) 2.5 Baso % (Auto) 0.6 Absolute Neuts (auto) 4.4 Absolute Lymphs (auto) 1.18 Nucleated RBC % 0 Sodium 139 Potassium 4.1 Chloride 107 Carbon Dioxide 28.0 Anion Gap 4 L BUN 22 H Creatinine 0.95 Estim Creat Clear Calc 40.47 Est GFR (MDRD) Af Amer 74 Est GFR (MDRD) Non-Af 61 BUN/Creatinine Ratio 23.2 H Glucose 104 Calcium 9.4 Urine Color Yellow Urine Clarity Sl. Cloudy Urine pH 6.0 Ur Specific [place] 1.020 Urine Protein 30 H Urine Glucose (UA) Normal Urine Ketones Negative Urine Occult Blood 25 H Urine Nitrite Positive H Urine Bilirubin Negative Urine Urobilinogen Normal Ur Leukocyte Esterase 100 H Urine RBC 0-5 SEEN Urine WBC 25-50 SEEN Ur Squamous Epith Cells 0-5 SEEN Urine Bacteria 2+ Urine Mucus 0 SEEN Radiography Diagnostic Testing: Clinical Impression(s) from Imaging Studies Abdomen/Pelvis CT 09/16/21 16:52 IMPRESSION: 1. Obstructing 3 mm LEFT ureteral calcification immediately superior to LEFT UVJ with associated hydronephrosis and hydroureter. No perinephric fluid collections noted. 2. No obstructive changes on the RIGHT. 3. No masses bowel obstruction abscess free fluid or free air. No evidence diverticulitis. 4. Postop changes of prior cholecystectomy. 5. No hepatic or adrenal masses noted. 6. No destructive bony process is noted. Degenerative grade 1 anterolisthesis of L4 and L5 contributed by pars defects. 7. Pericardial thickening versus trace pericardial effusion. 8. No focal infiltrate identified in the visualized lower lung zones. Electronically Signed: Rodney Decker MD at 19:06 EST , Discharge Plan Dx/Rx/DC Orders Clinical Impression: Kidney stone on left side, Acute UTI Disposition Disposition: Acute Care [facility]
[2021-09-16] MEDS: Morphine 4 MG/ML Syringe IV ×2 (16:29→16:59)
[2021-09-16] MEDS: Ondansetron 4 MG/2 ML Vial IV ×2 (16:29→19:21)
[2021-09-16 16:46] LABS: Absolute Lymphocyte Count 1.18 X10^3/uL (0.83-4.51); Absolute Neutrophil Count 4.4 X10^3/uL (2.0-7.7); Basophil# 0.04 X10^3/uL; Basophil% 0.6 % (0-1); Eosinophil# 0.16 X10^3/uL; Eosinophils% 2.5 % (0-5); Hematocrit 38.9 % (37-47); Hemoglobin 12.8 g/dL (12.0-15.0); Lymphocyte # 1.18 X10^3/ul (0.83-4.51); Lymphocyte % 18.3 % (19-41); Mean Corp Hgb Conc 32.9 g/dL (32-36); Mean Corpuscular Hgb 29.1 pg (27.0-32.0); Mean Corpuscular Volume 88.4 fL (81-99); Mean Platelet Vol. 10.5 fl (6.2-12.0); Monocyte# 0.65 X10^3/uL; Monocyte% 10.1 % (0-10); NRBC Flagged by Analyzer 0 % (0-5); Neutrophil % 68.3 % (47-70); Platelet Count 302 K/mm3 (150-450); RBC Distribution Width CV 12.7 % (11.6-14.6); RBC Distribution Width SD 41.4 fl (35.1-43.9); White Blood Count 6.4 K/mm3 (4.4-11.0)
--- NOTE | 2021-09-16 16:52 | CT_ITS ---
INDICATION: left flank pain EXAMINATION: CT ABDOMEN AND PELVIS WITHOUT CONTRAST - CT Abdomen And Pelvis W/O Contrast Injection TECHNIQUE: Helically acquired images were obtained of the abdomen and pelvis without oral or IV contrast. A radiation dose optimization technique was used for this scan. IV Contrast dosage and agent: None. Oral contrast: None. Radiation Dose (provided by facility) CTDIvol (6.34 ) mGy, DLP ( 288.30) mGy-cm COMPARISON: None. FINDINGS: LOWER CHEST: Lungs are moderately hyperexpanded, no infiltrate or consolidation noted in the lower lung zones. No cardiac megaly, trace pericardial effusion versus pericardial thickening. LIVER: There is normal size configuration density on noncontrast imaging. No focal mass. GALLBLADDER AND BILIARY TREE: Surgically absent. PANCREAS: No focal cystic or solid mass. SPLEEN: Normal size without focal cystic or solid mass. ADRENAL GLANDS: No nodules. KIDNEYS AND URETERS: Kidneys have normal configuration. There is mild hydronephrosis and hydroureter on the LEFT to the level of a 3 mm calcification immediately superior to the LEFT UVJ. No obstructive changes noted on the RIGHT, there is an extrarenal pelvis however on the RIGHT. No perinephric fluid collections noted. PERITONEUM: No ascites or free air. No other fluid collection. BOWEL: No evidence of acute appendicitis. No stomach or bowel distension. No focal inflammatory change. No evidence diverticulitis. LYMPH NODES: No enlarged mesenteric or retroperitoneal lymph nodes. VESSELS: Moderate vascular calcifications throughout the aorta without aneurysmal dilatation. URINARY BLADDER: Unremarkable. REPRODUCTIVE ORGANS: Postop changes of prior hysterectomy. ABDOMINAL WALL: No discrete abdominal or pelvic wall hernia. BONES: Diffuse lumbar spondylosis, degenerative grade 1 anterolisthesis of L4 and L5. There is a contributing pars defects bilaterally at this level. No destructive bony process is noted. CT/Abdomen/Pelvis without Cont IMPRESSION: 1. Obstructing 3 mm LEFT ureteral calcification immediately superior to LEFT UVJ with associated hydronephrosis and hydroureter. No perinephric fluid collections noted. 2. No obstructive changes on the RIGHT. 3. No masses bowel obstruction abscess free fluid or free air. No evidence diverticulitis. 4. Postop changes of prior cholecystectomy. 5. No hepatic or adrenal masses noted. 6. No destructive bony process is noted. Degenerative grade 1 anterolisthesis of L4 and L5 contributed by pars defects. 7. Pericardial thickening versus trace pericardial effusion. 8. No focal infiltrate identified in the visualized lower lung zones. Electronically Signed: Rodney Decker MD at 19:06 EST ,
[2021-09-16 16:57] LABS: Anion Gap 4 (5-15); BUN 22 mg/dL (7-18); BUN/Creat Ratio 23.2 RATIO (10-20); Calcium,Total 9.4 mg/dL (8.5-10.1); Chloride 107 mmol/L (98-107); Creatinine, Serum 0.95 mg/dL (0.55-1.02); EST Glomerular Filtration Rate 61 mL/min (>60); Est Glom Filt Rate - Afr Amer 74 mL/min (>60); Estimated Creatinine Clearance 40.47 ml/min; Glucose 104 mg/dL (74-106); Potassium 4.1 mmol/L (3.5-5.1); Sodium Level 139 mmol/L (136-145)
[2021-09-16 17:04] LABS: Mucous, Urine 0 SEEN /hpf (<or=2+)
[2021-09-16 17:11] LABS: Color, Urine Yellow (Yellow); Glucose, Dipstick Normal (Normal); Ketone-Dipstick Negative (Negative); Leukocyte Esterase-Dipstick 100 /ul (Negative); Nitrite-Dipstick Positive (Negative); Occult Blood-Urine 25 /ul (Negative); Protein-Dipstick 30 mg/dl (Negative); Urine Bilirubin Dipstick Negative (Negative); Urine Clarity Sl. Cloudy (Clear); Urine Urobilinogen Normal (Normal)
[2021-09-16 17:22] LABS: Bacteria 2+ /hpf (None Seen); Red Blood Cells-Urine 0-5 SEEN /hpf (0-5); Squamous Epithelial Cells - UA 0-5 SEEN /hpf (5-10); White Blood Cells 25-50 SEEN /hpf (0-5)
[2021-09-16 17:32] VITALS: BP 165/92; PULSE 97; RESP 22; O2SAT 99
[2021-09-16] MEDS: HYDROmorphone 0.5 MG/0.5 ML SYRINGE IV (17:41)
[2021-09-16 19:15] VITALS: BP 151/92; PULSE 128; RESP 27; TEMP 37.1; O2SAT 96
[2021-09-16] MEDS: MethylPREDNISolone 125 MG/2 ML Vial IV (19:36)
[2021-09-16] MEDS: DiphenhydrAMINE 50 MG/ML Syringe 25 MG IV (19:36)
[2021-09-16] MEDS: Ceftriaxone 1 GM/50 ML BAG IV (19:36)
--- NOTE | 2021-09-16 19:38 | ED.RN ---
PT HAS A FLAT RED RASH ON BOTH HANDS THAT IS TRAVELING UPWARDS ON LEFT ARM. GARCIA DO NOTIFIED, ORDERS RECEIVED AND MEDS GIVEN. WILL CONTINUE TO MONITOR
[2021-09-16 19:40] VITALS: BP 151/92; PULSE 124; RESP 26; TEMP 37.1; O2SAT 95
[2021-09-16 20:01] VITALS: BP 145/82; PULSE 121; RESP 25; TEMP 37.1; O2SAT 95
[2021-09-16 20:23] VITALS: BMI 22.3
--- NOTE | 2021-09-16 20:30 | HP.PCM.HOS_ITS ---
HPI - General General Date of Admission: 09/16/21 HPI Narrative GEE LAURA, is a 76 F who presents with urinary frequency that started this morning and then left flank pain that started this afternoon at around 4 PM. She also has some nausea and vomiting. CT scan demonstrates a 3 mm left ureteral calcification superior to the left UVJ. UA is also consistent with a UTI and she was started on Rocephin in the ER. She does have a history of cancers which has recurred and is currently on an oral chemotherapy pill. She otherwise felt fine yesterday and had no issues until this morning. [facility] Medical History Anxiety Bilateral pulmonary embolism (11/06/14) Colitis COPD (chronic obstructive pulmonary disease) Depression Encounter for education Essential hypertension Exertional dyspnea Hepatitis A Lung cancer Lung mass Non-small cell lung cancer (NSCLC) Raynauds disease Skin cancer Ulcerative colitis Home Medications multivitamin with folic acid 1 tab PO DAILY 09/16/14 [History Last Taken Unknown] B-complex with vitamin C 1 tab PO DAILY 03/11/18 [History Last Taken Unknown] cholecalciferol (vitamin D3) 1,000 unit PO DAILY 05/04/19 [History Last Taken Unknown] loperamide 2 mg capsule 2 mg PO Q4H PRN 08/12/19 [History Last Taken Unknown] esomeprazole magnesium 20 mg capsule,delayed release 20 mg PO DAILY PRN 02/11/20 [History Last Taken Unknown] tiotropium bromide 18 mcg capsule with inhalation device 1 cap INHALATION DAILY 02/11/20 [History Last Taken 11/30/20] melatonin 10 mg capsule 10 mg PO HS PRN 11/21/20 [History Last Taken Unknown] Lactobacillus rhamnosus GG 15 billion cell sprinkle capsule 1 cap PO DAILY 12/29/20 [History Last Taken Unknown] albuterol sulfate 90 mcg/actuation aerosol inhaler 2 puff INHALATION Q6H PRN 12/29/20 [History Last Taken Unknown] dicyclomine 20 mg tablet 20 mg PO .QID tab 12/29/20 [History Last Taken Unknown] carvedilol 12.5 mg tablet 12.5 mg PO BID #90 tab 03/10/21 [Rx Last Taken Unknown] afatinib 30 mg tablet 30 mg PO DAILY 07/11/21 [History Last Taken Unknown] hyoscyamine sulfate 0.125 mg tablet 0.125 mg PO BID-QID PRN #30 tab 08/24/21 [Rx Last Taken Unknown] Allergy/AdvReac Type Severity Reaction Status Date / Time ipratropium [From Atrovent] Allergy Rash Verified 09/16/21 16:06 terbinafine HCl Allergy Rash Verified 09/16/21 16:06 [From Lamisil] lactose AdvReac Upset Verified 09/16/21 16:06 Stomach Family History Father Liver disease Mother Uterine cancer Brother Myocardial infarction, Onset Age: 60 Surgical History EBUS guided biopsy H/O hernia repair History of appendectomy History of bronchoscopy History of hysterectomy History of thoracentesis History of tonsillectomy Hx of cholecystectomy ulnar nerve release left elbow Social History Smoking Status: Former smoker Tobacco: How many years used: 40 second hand exposure: No details: occasionally substance use type: does not use ROS Constitutional Constitutional: Denies chills, fatigue, fever(s) or malaise Eyes Eyes: Denies blurry vision ENT HEENT: Denies headache(s) or nasal discharge Cardiovascular Cardiovascular: Denies chest pain, dyspnea on exertion or syncope Respiratory/Chest Respiratory/Chest: Denies cough, shortness of breath at rest or shortness of breath with exertion Gastrointestinal Gastrointestinal: Reports nausea and vomiting; Denies constipation or diarrhea Genitourinary Genitourinary: Reports flank pain and urinary frequency; Denies dysuria Neurologic Neurologic: Denies focal weakness, numbness or tremor(s) Psychiatric Psychiatric: Denies anxiety or depression Vital Signs Vital Signs Vital Signs: 09/16/21 16:07 09/16/21 17:32 09/16/21 19:15 Temperature 98 F 98.7 F Temperature Source Temporal Oral Pulse Rate 99 97 128 H Respiratory Rate 16 22 H 27 H Blood Pressure 171/94 H 165/92 H 151/92 H Blood Pressure Mean 119 116 111 Pulse Ox 100 99 96 Oxygen Delivery Method Room Air Room Air Nasal Cannula Oxygen Flow Rate (L/min) 2 09/16/21 19:40 09/16/21 20:01 Temperature 98.7 F 98.7 F Temperature Source Oral Oral Pulse Rate 124 H 121 H Respiratory Rate 26 H 25 H Blood Pressure 151/92 H 145/82 H Blood Pressure Mean 111 103 Pulse Ox 95 95 Oxygen Delivery Method Nasal Cannula Nasal Cannula Oxygen Flow Rate (L/min) 2 2 Weight Weight: 122 lb 2.177 oz Body Mass Index (BMI) 22.3 Physical Exam Const alert, oriented x3 and no apparent distress General Appearance: cooperative HEENT normocephalic and moist oral mucous membranes Eyes PERRL, EOMs intact bilaterally and conjunctivae normal Neck supple and no JVD Resp normal respiratory effort, no retractions, no use of accessory muscles and clear to auscultation bilaterally Auscultation: Negative for crackles, rales, rhonchi or wheezes Cardio regular rhythm, S1 normal heart sound, S2 normal heart sound and no murmurs Rate: tachycardic GI soft to palpation, non-tender and non-distended; Negative for hepatosplenomegaly Extremity no clubbing, cyanosis or edema Skin no rashes or lesions noted Neuro no focal motor deficits and no sensory deficits noted Psych affect normal Appearance: appropriate Results Lab / Micro Data Result Diagrams: 09/16/21 16:20 09/16/21 16:20 Labs: Laboratory Results - last 24 hr 09/16/21 16:20: WBC 6.4, RBC 4.40, Hgb 12.8, Hct 38.9, MCV 88.4, MCH 29.1, MCHC 32.9, RDW Std Deviation 41.4, RDW Coeff of Hiram 12.7, Plt Count 302, MPV 10.5, Immature Gran % (Auto) 0.200, Neut % (Auto) 68.3, Lymph % (Auto) 18.3 L, [place] % (Auto) 10.1 H, Eos % (Auto) 2.5, Baso % (Auto) 0.6, Absolute Neuts (auto) 4.4, Absolute Lymphs (auto) 1.18, Nucleated RBC % 0 09/16/21 16:20: Sodium 139, Potassium 4.1, Chloride 107, Carbon Dioxide 28.0, Anion Gap 4 L, BUN 22 H, Creatinine 0.95, Estim Creat Clear Calc 40.47, Est GFR (MDRD) Af Amer 74, Est GFR (MDRD) Non-Af 61, BUN/Creatinine Ratio 23.2 H, Glucose 104, Calcium 9.4 09/16/21 16:56: Urine Color Yellow, Urine Clarity Sl. Cloudy, Urine pH 6.0, Ur Specific [place] 1.020, Urine Protein 30 H, Urine Glucose (UA) Normal, Urine Ketones Negative, Urine Occult Blood 25 H, Urine Nitrite Positive H, Urine Bilirubin Negative, Urine Urobilinogen Normal, Ur Leukocyte Esterase 100 H, Urine RBC 0-5 SEEN, Urine WBC 25-50 SEEN, Ur Squamous Epith Cells 0-5 SEEN, Urine Bacteria 2+, Urine Mucus 0 SEEN Radiology Impression Abdomen/Pelvis CT 09/16/21 16:52 IMPRESSION: 1. Obstructing 3 mm LEFT ureteral calcification immediately superior to LEFT UVJ with associated hydronephrosis and hydroureter. No perinephric fluid collections noted. 2. No obstructive changes on the RIGHT. 3. No masses bowel obstruction abscess free fluid or free air. No evidence diverticulitis. 4. Postop changes of prior cholecystectomy. 5. No hepatic or adrenal masses noted. 6. No destructive bony process is noted. Degenerative grade 1 anterolisthesis of L4 and L5 contributed by pars defects. 7. Pericardial thickening versus trace pericardial effusion. 8. No focal infiltrate identified in the visualized lower lung zones. Electronically Signed: Rodney Decker MD at 19:06 EST , Assessment & Plan Assessment/Plan (1) Kidney stone on left side: (2) Acute UTI: PLAN: 1. UTI in the setting of a left nephrolithiasis ?qSOFA score of 1 therefore no sepsis ?Continue with Rocephin and a urine culture ?We will provide Toradol for pain relief ?Continue with IV fluids ?Flomax for assistance in passing the stone it is only 3 mm so I do anticipate her passing 2. HTN ?Blood pressure is stable, heart rate is elevated can resume Coreg when verified 3. COPD/non-small cell lung cancer ?She was initially diagnosed with cancer back in 2014 and underwent radiation with chemotherapy had been in remission until this year when it was found in the opposite lung that she is undergoing oral chemo for the hold while she is dealing with the infection here in the hospital ?Can resume her albuterol inhaler when verified 4. GERD ?Stable ?Continue with PPI DVT: Lovenox Charges/Coding Visit Charges Inpatient E&M: 48163 Init Hosp L3
[2021-09-16 20:34] VITALS: BP 133/79; PULSE 116; RESP 20; TEMP 37.6; O2SAT 96
[2021-09-16] MEDS: 0.9% Normal Saline 1,000 ML 100 ML IV (21:18)
[2021-09-16] MEDS: Acetaminophen 325 MG Tablet 650 MG PO (21:23)
[2021-09-17] MEDS: Ketorolac 15 MG/ML Vial IV ×5 (00:05→23:23)
[2021-09-17] MEDS: 0.9% Saline Lock 10 ML Syringe IV ×2 (00:05→23:27)
[2021-09-17] MEDS: Tamsulosin HCl 0.4 MG Capsule PO ×2 (00:05→17:07)
[2021-09-17 02:30] VITALS: BP 87/55; PULSE 110; RESP 18; TEMP 36.7; O2SAT 97
[2021-09-17 05:14] LABS: Absolute Neutrophil Count 18.9 X10^3/uL (2.0-7.7); Basophil# 0.05 X10^3/uL; Basophil% 0.2 % (0-1); Eosinophil# 0.01 X10^3/uL; Hematocrit 34.3 % (37-47); Lymphocyte % 2.9 % (19-41); Mean Corp Hgb Conc 32.1 g/dL (32-36); Mean Corpuscular Hgb 28.6 pg (27.0-32.0); Mean Corpuscular Volume 89.1 fL (81-99); Mean Platelet Vol. 10.2 fl (6.2-12.0); Monocyte# 0.89 X10^3/uL; Monocyte% 4.2 % (0-10); NRBC Flagged by Analyzer 0 % (0-5); Neutrophil % 90.3 % (47-70); POSITIVE DIFFERENTIAL YES; POSITIVE MORPHOLOGY YES; Platelet Count 190 K/mm3 (150-450); RBC Distribution Width CV 13.2 % (11.6-14.6); RBC Distribution Width SD 42.8 fl (35.1-43.9); Red Blood Count 3.85 M/mm3 (4.2-5.4)
[2021-09-17 05:17] LABS: Differential Indicated SCAN CRITERIA MET
[2021-09-17] MEDS: 0.9% Normal Saline 1,000 ML 100 ML IV ×3 (05:18→23:27)
[2021-09-17 05:47] LABS: Anion Gap 8 (5-15); BUN 30 mg/dL (7-18); Calcium,Total 8.3 mg/dL (8.5-10.1); Chloride 107 mmol/L (98-107); Creatinine, Serum 1.87 mg/dL (0.55-1.02); EST Glomerular Filtration Rate 28 mL/min (>60); Est Glom Filt Rate - Afr Amer 34 mL/min (>60); Estimated Creatinine Clearance 20.56 ml/min; Glucose 141 mg/dL (74-106); Potassium 3.8 mmol/L (3.5-5.1); Sodium Level 138 mmol/L (136-145)
[2021-09-17 07:06] VITALS: BP 93/56; PULSE 102; RESP 16; TEMP 36.6; O2SAT 94
[2021-09-17] MEDS: Acetaminophen 325 MG Tablet 650 MG PO ×2 (09:10→20:56)
[2021-09-17] MEDS: Enoxaparin 40 MG/0.4 ML Syringe SC (09:10)
--- NOTE | 2021-09-17 11:59 | PCM.PN.HOSP ---
Subjective Subjective Patient was seen in [place] today, she does not complain of any flank pain, she is afebrile, her white count however this morning was 21,000. I talked with urology concerning the patient and they will see her today. Objective Data Objective Data Vital Signs: Vital Signs Temp Pulse Resp BP Pulse Ox 97.9 F 102 H 16 93/56 L 94 09/17/21 07:06 09/17/21 07:06 09/17/21 07:06 09/17/21 07:06 09/17/21 07:06 Oxygen Flow Rate (L/min) 2 Oxygen Delivery Method Room Air Weight: 55.4 kg Body Mass Index (BMI) 22.3 Intake & Output: Intake and Output for Last 24 Hours 09/15/21 09/16/21 09/17/21 23:59 23:59 23:59 Intake Total 50 / 50 800 / 800 Balance 50 / 50 800 / 800 Lab / Micro Data Result Diagrams: 09/17/21 05:05 09/17/21 05:05 Labs: Laboratory Results - last 24 hr 09/16/21 16:20: WBC 6.4, RBC 4.40, Hgb 12.8, Hct 38.9, MCV 88.4, MCH 29.1, MCHC 32.9, RDW Std Deviation 41.4, RDW Coeff of Hiram 12.7, Plt Count 302, MPV 10.5, Immature Gran % (Auto) 0.200, Neut % (Auto) 68.3, Lymph % (Auto) 18.3 L, [place] % (Auto) 10.1 H, Eos % (Auto) 2.5, Baso % (Auto) 0.6, Absolute Neuts (auto) 4.4, Absolute Lymphs (auto) 1.18, Nucleated RBC % 0 09/16/21 16:20: Sodium 139, Potassium 4.1, Chloride 107, Carbon Dioxide 28.0, Anion Gap 4 L, BUN 22 H, Creatinine 0.95, Estim Creat Clear Calc 40.47, Est GFR (MDRD) Af Amer 74, Est GFR (MDRD) Non-Af 61, BUN/Creatinine Ratio 23.2 H, Glucose 104, Calcium 9.4 09/16/21 16:56: Urine Color Yellow, Urine Clarity Sl. Cloudy, Urine pH 6.0, Ur Specific [place] 1.020, Urine Protein 30 H, Urine Glucose (UA) Normal, Urine Ketones Negative, Urine Occult Blood 25 H, Urine Nitrite Positive H, Urine Bilirubin Negative, Urine Urobilinogen Normal, Ur Leukocyte Esterase 100 H, Urine RBC 0-5 SEEN, Urine WBC 25-50 SEEN, Ur Squamous Epith Cells 0-5 SEEN, Urine Bacteria 2+, Urine Mucus 0 SEEN 09/17/21 05:05: WBC 21.0 H, RBC 3.85 L, Hgb 11.0 L, Hct 34.3 L, MCV 89.1, MCH 28.6, MCHC 32.1, RDW Std Deviation 42.8, RDW Coeff of Hiram 13.2, Plt Count 190, MPV 10.2, Immature Gran % (Auto) 2.400 H, Neut % (Auto) 90.3 H, Lymph % (Auto) 2.9 L, [place] % (Auto) 4.2, Eos % (Auto) 0.0, Baso % (Auto) 0.2, Absolute Neuts (auto) 18.9 H, Absolute Lymphs (auto) 0.60 L, Nucleated RBC % 0 09/17/21 05:05: Sodium 138, Potassium 3.8, Chloride 107, Carbon Dioxide 23.0, Anion Gap 8, BUN 30 H, Creatinine 1.87 H, Estim Creat Clear Calc 20.56, Est GFR (MDRD) Af Amer 34 L, Est GFR (MDRD) Non-Af 28 L, BUN/Creatinine Ratio 16.0, Glucose 141 H, Calcium 8.3 L Micro: Microbiology 09/16/21 Unknown Urine, Clean Catch Urine Culture - Preliminary GNR lactose regulatory 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 Obstructing 3 mm LEFT ureteral calcification immediately superior to LEFT UVJ with associated hydronephrosis and hydroureter. No perinephric fluid collections noted. 2. No obstructive changes on the RIGHT. 3. No masses bowel obstruction abscess free fluid or free air. No evidence diverticulitis. 4. Postop changes of prior cholecystectomy. 5. No hepatic or adrenal masses noted. 6. No destructive bony process is noted. Degenerative grade 1 anterolisthesis of L4 and L5 contributed by pars defects. 7. Pericardial thickening versus trace pericardial effusion. 8. No focal infiltrate identified in the visualized lower lung zones. Electronically Signed: Rodney Decker MD at 19:06 EST , Physical Exam Const alert, oriented x3, no apparent distress and healthy appearing General Appearance: cooperative, well kempt and well developed Orientation / Consciousness: awake, oriented to person, oriented to place and oriented to time HEENT normocephalic and moist oral mucous membranes Eyes PERRL, EOMs intact bilaterally and conjunctivae normal Neck nuchal rigidity, supple, no JVD, thyroid normal and no carotid bruits General: trachea midline Resp normal respiratory effort and clear to auscultation bilaterally Auscultation: Negative for rales, rhonchi or wheezes Cardio regular rate, regular rhythm, no murmurs, no rub and no gallops GI normal to inspection, nondistended, normoactive bowel sounds, soft to palpation, non-tender and non-distended Extremity no clubbing, cyanosis or edema Skin no rashes or lesions noted General Skin Exam: no breakdown Neuro oriented x3, CN's II-XII intact bilaterally, no focal motor deficits and no sensory deficits noted Sensorium / Orientation: awake and alert Speech: speech normal Psych affect normal Assessment & Plan Assessment/Plan (1) Acute UTI: PLAN: 1. Left ureteral stone-patient is asymptomatic at this time, it is unknown whether she passed the stone. She will be seen by urology today #2 pyelonephritis-patient's white blood cell count was elevated at 21,000 today, she will continue on IV Rocephin #3 non-small cell lung cancer of the left lung-patient follows up with oncology as an outpatient #4 essential hypertension-patient will remain on her current medications #5 COPD-patient is on Spiriva, I will place her on Atrovent aerosols. Charges/Coding Visit Charges Inpatient E&M: 43817 Subs Hosp L2
--- NOTE | 2021-09-17 12:33 | PCM.CONS.GEN ---
Assessment & Plan Assessment/Plan (1) Acute UTI: (2) Hydronephrosis with ureteral calculus: PLAN: I discussed with the patient that if her white blood count and creatinine were normal, she looks so good we will probably send her home for outpatient follow-up. However, she is on chemotherapy, and her white count jumped from 6 to 21 overnight. I will repeat her CBC and if it remains elevated, I will make her n.p.o. after midnight for stent in the morning since she just ate. If her white count has improved we can consider repeat CT and then outpatient follow-up. She understands the situation and agrees to the plan. await cultures continue supportive care HPI Consult Data Date of Consult: 09/17/21 HPI Narrative HPI Narrative: GEE LAURA, is a 76 F who Was admitted from the emergency department yesterday with nausea and vomiting and diagnosed with a distal left ureteral calculus 3 mm in size. She has had supportive care overnight and is feeling great this morning.She has no nausea or vomiting. She has absolutely no pain. She is voiding much improved this morning. Yesterday while the stone was giving her trouble, she had hesitancy of voiding. She has been getting Toradol scheduled. She has no history of kidney stones. She does have a history of lung cancer and is currently taking a chemotherapy pill orally. She just ate lunch which was soup, a Coca-Cola and some water. She is currently sitting up at bedside without complaints. [facility] Medical History (Updated 09/17/21 @ 12:[address] Shruti Christian MD) Anxiety Bilateral pulmonary embolism (11/06/14) Colitis COPD (chronic obstructive pulmonary disease) Depression Encounter for education Essential hypertension Exertional dyspnea Hepatitis A Hydronephrosis with ureteral calculus Lung cancer Lung mass Non-small cell lung cancer (NSCLC) Raynauds disease Skin cancer Ulcerative colitis Home Medications multivitamin with folic acid 1 tab PO DAILY 09/16/14 [History Last Taken 09/16/21] cholecalciferol (vitamin D3) 1,000 unit PO DAILY 05/04/19 [History Last Taken 09/16/21] loperamide 2 mg capsule 2 mg PO Q4H PRN 08/12/19 [History Last Taken Unknown] tiotropium bromide 18 mcg capsule with inhalation device 2 cap INHALATION DAILY 02/11/20 [History Last Taken 09/16/21] melatonin 10 mg capsule 10 mg PO HS PRN 11/21/20 [History Last Taken 09/15/21] Lactobacillus rhamnosus GG 15 billion cell sprinkle capsule 1 cap PO DAILY 12/29/20 [History Last Taken Unknown] albuterol sulfate 90 mcg/actuation aerosol inhaler 2 puff INHALATION Q6H PRN 12/29/20 [History Last Taken Unknown] dicyclomine 20 mg tablet 20 mg PO BID tab 12/29/20 [History Last Taken 09/16/21] afatinib 30 mg tablet 30 mg PO TUFR 07/11/21 [History Last Taken 09/16/21] carvedilol [Coreg] 12.5 mg PO BID 09/16/21 [History Last Taken 09/16/21] hyoscyamine sulfate 0.125 mg PO DAILY 09/16/21 [History Last Taken 09/16/21] Allergy/AdvReac Type Severity Reaction Status Date / Time ipratropium [From Atrovent] Allergy Rash Verified 09/16/21 16:06 terbinafine HCl Allergy Rash Verified 09/16/21 16:06 [From Lamisil] lactose AdvReac Upset Verified 09/16/21 16:06 Stomach Family History Father Liver disease Mother Uterine cancer Brother Myocardial infarction, Onset Age: 60 Surgical History EBUS guided biopsy H/O hernia repair History of appendectomy History of bronchoscopy History of hysterectomy History of thoracentesis History of tonsillectomy Hx of cholecystectomy ulnar nerve release left elbow Social History Smoking Status: Former smoker Tobacco: How many years used: 40 second hand exposure: No details: occasionally substance use type: does not use ROS Constitutional Constitutional: Denies anorexia, chills, fever(s) or weakness Eyes Eyes: Reports systems reviewed and no addt'l complaints, except as documented ENT HEENT: Reports systems reviewed and no addt'l complaints, except as documented Cardiovascular Cardiovascular: Reports other Details: Nausea and vomiting that has resolved. ; Denies chest pain or dyspnea Respiratory/Chest Respiratory/Chest: Denies cough or dyspnea Gastrointestinal Gastrointestinal: Denies nausea or vomiting Genitourinary Genitourinary: Reports other Details: Has not passed a stone. Feels like she is voiding normally now since this morning. Yesterday was having trouble. ; Denies hematuria Musculoskeletal Musculoskeletal: Reports systems reviewed and no addt'l complaints, except as documented Integumentary Integumentary: Reports systems reviewed and no addt'l complaints, except as documented Neurologic Neurologic: Reports systems reviewed and no addt'l complaints, except as documented Psychiatric Psychiatric: Reports systems reviewed and no addt'l complaints, except as documented Physical Exam Const alert, oriented x3 and no apparent distress HEENT normocephalic, head/scalp atraumatic, hearing grossly normal bilaterally, external ears normal and external nose normal Eyes conjunctivae normal General Eye: normal appearance of both eyes Neck supple General: trachea midline Chest inspection of chest normal Chest: symmetrical chest wall rise Resp normal respiratory effort, normal air movement, no retractions and no use of accessory muscles Effort and Inspection: able to speak in complete sentences and symmetric chest movement Cardio regular rhythm Rate: tachycardic GI soft to palpation, non-tender and non-distended no CVA tenderness Back/Spine no CVA tenderness Extremity normal to inspection Skin no rashes or lesions noted, no wounds, skin turgor normal, no jaundice, no petechiae and no mottling Neuro oriented x3, CN's II-XII intact bilaterally and moves all extremities Psych mental status grossly normal, thought process normal, cooperative and affect normal Lab / Micro Data Result Diagrams: 09/17/21 05:05 09/17/21 05:05 Labs: Laboratory Results - last 24 hr 09/16/21 16:20: WBC 6.4, RBC 4.40, Hgb 12.8, Hct 38.9, MCV 88.4, MCH 29.1, MCHC 32.9, RDW Std Deviation 41.4, RDW Coeff of Hiram 12.7, Plt Count 302, MPV 10.5, Immature Gran % (Auto) 0.200, Neut % (Auto) 68.3, Lymph % (Auto) 18.3 L, [place] % (Auto) 10.1 H, Eos % (Auto) 2.5, Baso % (Auto) 0.6, Absolute Neuts (auto) 4.4, Absolute Lymphs (auto) 1.18, Nucleated RBC % 0 09/16/21 16:20: Sodium 139, Potassium 4.1, Chloride 107, Carbon Dioxide 28.0, Anion Gap 4 L, BUN 22 H, Creatinine 0.95, Estim Creat Clear Calc 40.47, Est GFR (MDRD) Af Amer 74, Est GFR (MDRD) Non-Af 61, BUN/Creatinine Ratio 23.2 H, Glucose 104, Calcium 9.4 09/16/21 16:56: Urine Color Yellow, Urine Clarity Sl. Cloudy, Urine pH 6.0, Ur Specific [place] 1.020, Urine Protein 30 H, Urine Glucose (UA) Normal, Urine Ketones Negative, Urine Occult Blood 25 H, Urine Nitrite Positive H, Urine Bilirubin Negative, Urine Urobilinogen Normal, Ur Leukocyte Esterase 100 H, Urine RBC 0-5 SEEN, Urine WBC 25-50 SEEN, Ur Squamous Epith Cells 0-5 SEEN, Urine Bacteria 2+, Urine Mucus 0 SEEN 09/17/21 05:05: WBC 21.0 H, RBC 3.85 L, Hgb 11.0 L, Hct 34.3 L, MCV 89.1, MCH 28.6, MCHC 32.1, RDW Std Deviation 42.8, RDW Coeff of Hiram 13.2, Plt Count 190, MPV 10.2, Immature Gran % (Auto) 2.400 H, Neut % (Auto) 90.3 H, Lymph % (Auto) 2.9 L, [place] % (Auto) 4.2, Eos % (Auto) 0.0, Baso % (Auto) 0.2, Absolute Neuts (auto) 18.9 H, Absolute Lymphs (auto) 0.60 L, Nucleated RBC % 0 09/17/21 05:05: Sodium 138, Potassium 3.8, Chloride 107, Carbon Dioxide 23.0, Anion Gap 8, BUN 30 H, Creatinine 1.87 H, Estim Creat Clear Calc 20.56, Est GFR (MDRD) Af Amer 34 L, Est GFR (MDRD) Non-Af 28 L, BUN/Creatinine Ratio 16.0, Glucose 141 H, Calcium 8.3 L Micro: Microbiology 09/16/21 Unknown Urine, Clean Catch Urine Culture - Preliminary GNR lactose bottom pounder cement shoes Radiology Impression Abdomen/Pelvis CT 09/16/21 16:52 IMPRESSION: 1. Obstructing 3 mm LEFT ureteral calcification immediately superior to LEFT UVJ with associated hydronephrosis and hydroureter. No perinephric fluid collections noted. 2. No obstructive changes on the RIGHT. 3. No masses bowel obstruction abscess free fluid or free air. No evidence diverticulitis. 4. Postop changes of prior cholecystectomy. 5. No hepatic or adrenal masses noted. 6. No destructive bony process is noted. Degenerative grade 1 anterolisthesis of L4 and L5 contributed by pars defects. 7. Pericardial thickening versus trace pericardial effusion. 8. No focal infiltrate identified in the visualized lower lung zones. Electronically Signed: Rodney Decker MD at 19:06 EST ,
[2021-09-17 12:58] LABS: Hematocrit 35.8 % (37-47); Hemoglobin 11.5 g/dL (12.0-15.0); Mean Corp Hgb Conc 32.1 g/dL (32-36); Mean Corpuscular Hgb 29.8 pg (27.0-32.0); Mean Corpuscular Volume 92.7 fL (81-99); Mean Platelet Vol. 10.8 fl (6.2-12.0); POSITIVE DIFFERENTIAL YES; POSITIVE MORPHOLOGY YES; Platelet Count 169 K/mm3 (150-450); RBC Distribution Width CV 13.2 % (11.6-14.6); RBC Distribution Width SD 45.2 fl (35.1-43.9); Red Blood Count 3.86 M/mm3 (4.2-5.4); White Blood Count 23.7 K/mm3 (4.4-11.0)
[2021-09-17 13:00] LABS: Differential Indicated MANUAL DIFF
[2021-09-17] MEDS: Ipratropium/Albuterol Sulfate 3 ML AMPUL.NEB INHALATION ×2 (13:43→20:05)
[2021-09-17 13:44] LABS: Lymphocyte 3 % (19-41); Metamyelocyte 3 % (0-1); Monocyte 4 % (0-10); Myelocyte 1 % (0-0); Neutrophil-Band 5 % (0-5); Neutrophil-Segmented 84 % (47-70); Platelet Estimate ADEQUATE (ADEQ); Red Cell Morphology NORM C+C NORMAL (NORM C&C); Total Cells Counted 100 (MANUAL DIFF)
[2021-09-17 13:46] VITALS: PULSE 98; RESP 18; O2SAT 93
[2021-09-17 13:47] LABS: Absolute Lymphocyte Count 0.71 X10^3/uL (0.83-4.51); Absolute Neutrophil Count 21.1 X10^3/uL (2.0-7.7)
[2021-09-17 14:52] VITALS: BP 106/64; PULSE 102; RESP 16; TEMP 36.5; O2SAT 98
[2021-09-17 16:36] LABS: Hematocrit 35.5 % (37-47); Hemoglobin 11.7 g/dL (12.0-15.0); Mean Corpuscular Hgb 29.3 pg (27.0-32.0); Mean Corpuscular Volume 88.8 fL (81-99); Mean Platelet Vol. 10.9 fl (6.2-12.0); POSITIVE MORPHOLOGY YES; Platelet Count 176 K/mm3 (150-450); RBC Distribution Width CV 13.1 % (11.6-14.6); RBC Distribution Width SD 42.7 fl (35.1-43.9); White Blood Count 21.8 K/mm3 (4.4-11.0)
[2021-09-17 17:19] LABS: Differential Indicated MANUAL DIFF
[2021-09-17 17:21] LABS: Lymphocyte 2 % (19-41); Metamyelocyte 5 % (0-1); Monocyte 5 % (0-10); Myelocyte 2 % (0-0); Neutrophil-Band 5 % (0-5); Neutrophil-Segmented 81 % (47-70); Platelet Estimate ADEQUATE (ADEQ); Red Cell Morphology NORM C+C NORMAL (NORM C&C); Total Cells Counted 100 (MANUAL DIFF)
[2021-09-17 17:22] LABS: Absolute Lymphocyte Count 0.44 X10^3/uL (0.83-4.51); Absolute Neutrophil Count 18.7 X10^3/uL (2.0-7.7)
[2021-09-17] MEDS: Mag Hydrox/Al Hydrox/Simeth 30 ML UDC PO (18:56)
[2021-09-17 20:05] VITALS: PULSE 104; RESP 24
[2021-09-17] MEDS: Dicyclomine 10 MG Capsule 20 MG PO (21:41)
[2021-09-17] MEDS: Carvedilol 12.5 MG Tablet PO (21:41)
[2021-09-17] MEDS: Ceftriaxone 1 GM/50 ML BAG IV (21:43)
[2021-09-17 22:11] VITALS: BP 119/66; PULSE 103; RESP 18; TEMP 36.7; O2SAT 94
[2021-09-18] MEDS: Ondansetron 4 MG/2 ML Vial IV (01:34)
[2021-09-18 03:58] VITALS: BP 111/68; PULSE 102; RESP 18; TEMP 36.7; O2SAT 95
[2021-09-18] MEDS: 0.9% Saline Lock 10 ML Syringe IV ×2 (05:25→11:47)
[2021-09-18] MEDS: Ketorolac 15 MG/ML Vial IV ×2 (05:25→11:47)
[2021-09-18 05:45] LABS: Absolute Lymphocyte Count 0.83 X10^3/uL (0.83-4.51); Absolute Neutrophil Count 12.7 X10^3/uL (2.0-7.7); Basophil# 0.03 X10^3/uL; Basophil% 0.2 % (0-1); Eosinophil# 0.04 X10^3/uL; Eosinophils% 0.3 % (0-5); Hematocrit 31.9 % (37-47); Hemoglobin 10.1 g/dL (12.0-15.0); Lymphocyte # 0.83 X10^3/ul (0.83-4.51); Lymphocyte % 5.6 % (19-41); Mean Corp Hgb Conc 31.7 g/dL (32-36); Mean Corpuscular Hgb 28.2 pg (27.0-32.0); Mean Corpuscular Volume 89.1 fL (81-99); Mean Platelet Vol. 11.5 fl (6.2-12.0); Monocyte# 0.66 X10^3/uL; Monocyte% 4.4 % (0-10); NRBC Flagged by Analyzer 0 % (0-5); Neutrophil # 12.69 X10^3/uL (2.7-7.7); Neutrophil % 85.1 % (47-70); Platelet Count 162 K/mm3 (150-450); RBC Distribution Width CV 13.2 % (11.6-14.6); RBC Distribution Width SD 43.2 fl (35.1-43.9); Red Blood Count 3.58 M/mm3 (4.2-5.4); White Blood Count 14.9 K/mm3 (4.4-11.0)
[2021-09-18 05:57] LABS: Anion Gap 4 (5-15); BUN 34 mg/dL (7-18); BUN/Creat Ratio 28.8 RATIO (10-20); Calcium,Total 8.1 mg/dL (8.5-10.1); Chloride 108 mmol/L (98-107); Creatinine, Serum 1.18 mg/dL (0.55-1.02); EST Glomerular Filtration Rate 48 mL/min (>60); Est Glom Filt Rate - Afr Amer 57 mL/min (>60); Estimated Creatinine Clearance 32.58 ml/min; Glucose 116 mg/dL (74-106); Potassium 3.7 mmol/L (3.5-5.1); Sodium Level 137 mmol/L (136-145)
--- NOTE | 2021-09-18 06:00 | EKG12_ITS ---
Test Reason : PRE-OP Blood Pressure : / mmHG Vent. Rate : 096 BPM Atrial Rate : 096 BPM P-R Int : 156 ms QRS Dur : 088 ms QT Int : 358 ms P-R-T Axes : 064 071 051 degrees QTc Int : 452 ms Normal sinus rhythm Normal ECG When compared with ECG of 03-NOV-2015 12:59, No significant change was found Confirmed by BUTCH GREWAL, SHELBY ([id number]), rewrite editor SIRISHA DUQUE ([id number]) on 09/18/2021 2:24:28 PM Referred By: RADHA PERAZA Confirmed By:SHELBY RAE MD
[2021-09-18] MEDS: Ipratropium/Albuterol Sulfate 3 ML AMPUL.NEB INHALATION (07:06)
[2021-09-18 07:07] VITALS: PULSE 84; RESP 18; O2SAT 91
[2021-09-18 07:35] VITALS: BP 134/75; PULSE 96; RESP 14; TEMP 36.7; O2SAT 90
[2021-09-18] MEDS: Acetaminophen 325 MG Tablet 650 MG PO (07:42)
[2021-09-18 07:46] VITALS: BMI 22.8
[2021-09-18] MEDS: 0.9% Normal Saline 1,000 ML 100 ML IV (09:13)
--- NOTE | 2021-09-18 10:10 | CASEMGMT ---
RN CM Face to Face with patient for initial transition planning/care coordination assessment. RN CM introduced self and role at [facility]. Patient lying in bed, alert and oriented. Patient willing to participate in assessment and is able to answer all questions appropriately. Care providers, pharmacy, and demographics verified. Patient wishes to discharge home, denies need for home health at this time. Patient states she has no further needs or concerns at this time. CM to follow for discharge planning needs that may arise. PCP: Jeannie Specialists: Mary Kate, oncologist; Fabian, marriage counselor Preferred Pharmacy: [facility] Insurance: [employer] Prescription Benefit: yes Living Will/HPOA: none LNOK: daughter Living Arrangements: patient lives with roommate in a first floor apartment with no step to enter. Patient states she is independent at home. Transportation: self, roommate, daughter DME/HHC: Patient denies DME. No previous HHC or SNF Disposition Plan: Patient to discharge home with family support and follow-up plans in place. Lorena ZAMBRANON, RN, CM
--- NOTE | 2021-09-18 12:12 | PCM.DC ---
Discharge Instructions Diet Discharge Diet: No restrictions Activity Discharge Activity: Return to Normal Activity Weight Bearing Status: Full weight bearing Follow Up Care Test Results: Test results from this visit will be discussed in further detail at your follow-up appointment, if applicable. Discharge Plan Admission Admit Date/Time: 09/16/21 20:23 Primary Reason for Your Visit: left ureteral stone Attending Provider: Leandro Escalante Primary Care Provider: Vlad Dennis Consulting Providers: Shruti Christian Instructions Patient Instructions: Urinary Tract Infections in Women, ED Kidney Stone w/ Colic Additional Instructions / Restrictions: Start your antibiotics tonite first dose Discharge Orders/Prescriptions Prescriptions: New cephalexin 500 mg capsule 500 mg PO BID Qty: 14 RF: 0 Continued loperamide [Imodium A-D] 2 mg capsule 2 mg PO Q4H PRN (Reason: diarhea) RF: 0 Spiriva with HandiHaler 18 mcg capsule, w/inhalation device 2 cap INHALATION DAILY RF: 0 Gilotrif 30 mg tablet 30 mg PO TUFR RF: 0 melatonin 10 mg capsule 10 mg PO HS PRN (Reason: Sleep) RF: 0 albuterol sulfate [Ventolin HFA] 90 mcg/actuation HFA aerosol inhaler 2 puff inhalation Q6H PRN (Reason: copd) RF: 0 Culturelle 15 billion cell capsule, sprinkle 1 cap PO DAILY RF: 0 multivitamin with folic acid 1 TABLET tablet 1 tab PO DAILY RF: 0 dicyclomine 20 mg tablet 20 mg PO BID RF: 0 cholecalciferol (vitamin D3) 1,000 UNIT tablet 1,000 unit PO DAILY RF: 0 carvedilol [Coreg] 12.5 mg tablet 12.5 mg PO BID RF: 0 hyoscyamine sulfate 0.125 mg tablet 0.125 mg PO DAILY RF: 0 Referrals / Follow Up: Shruti Christian MD [STAFF PHYSICIAN] - See Referral Note (in 2 weeks-call for appointment) Vlad Dennis MD [Primary Care Provider] - Within 2 Weeks (you will need another repeat BMP to check on your kidney function) Disposition Disposition (needs filled in before D/C Order can be placed): Home, Self Care
--- NOTE | 2021-09-18 12:19 | DS.PCM_ITS ---
Providers Date of Admission: 09/16/21 Date of Discharge: 09/18/21 Primary Care Physician: Dr. Vlad Dennis MD Consultations 09/17/21 10:50 Consult: Urology Routine Consulting Provider: Shruti Christian Reason for Consult: ureteral stone EMERGENT Consult: No MD Notified: Yes Date Notified: 09/17/21 Time Notified: 10:50 Method of Notification: Verbal Reason For Visit: UTI AND NEPHROLITHIASIS Diagnosis Discharge Diagnosis (1) Acute UTI: Status: Acute Code(s): N39.0 - Urinary tract infection, site not specified (2) Hydronephrosis with ureteral calculus: Status: Acute Code(s): N13.2 - Hydronephrosis with renal and ureteral calculous obstruction Plan: 1. Left ureteral stone with obstruction to the left kidney #2 renal colic secondary to left ureteral stone with obstruction of the left kidney #3 pyelonephritis secondary to E. coli #4 non-small cell lung cancer of the left lung #5 essential hypertension #6 COPD Medications at Discharge Home Medications multivitamin with folic acid 1 tab PO DAILY 09/16/14 cholecalciferol (vitamin D3) 1,000 unit PO DAILY 05/04/19 loperamide 2 mg capsule 2 mg PO Q4H PRN 08/12/19 tiotropium bromide 18 mcg capsule with inhalation device 2 cap INHALATION DAILY 02/11/20 melatonin 10 mg capsule 10 mg PO HS PRN 11/21/20 Lactobacillus rhamnosus GG 15 billion cell sprinkle capsule 1 cap PO DAILY 12/29/20 albuterol sulfate 90 mcg/actuation aerosol inhaler 2 puff INHALATION Q6H PRN 12/29/20 dicyclomine 20 mg tablet 20 mg PO BID tab 12/29/20 afatinib 30 mg tablet 30 mg PO TUFR 07/11/21 carvedilol [Coreg] 12.5 mg PO BID 09/16/21 hyoscyamine sulfate 0.125 mg PO DAILY 09/16/21 cephalexin 500 mg PO BID #14 cap 09/18/21 Hospital Course Operations None Procedures None Summary of Care Provided Minutes Spent on Discharge: 32 Hospital Course: This 76-year-old white female was seen in the emergency room at [facility] with chief complaint of left flank pain. She denied any dysuria, she had no complaints of fever or chills. Patient denied seeing any blood in the urine. Work-up in the emergency room included labs which showed an elevated white blood cell count at 21,000, CT of the abdomen and pelvis showed hydronephrosis on the left with what appeared to be an obstructing stone in the left ureter. Patient was given IV antibiotics and fluids, she was admitted to [place] [address], her left flank pain resolved however. Patient was seen in consultation by urology, she was to undergo stent placement on 09/18/2021 when she passed a small stone. The procedure was canceled. Patient's urine grew out E. coli. On 09/18/2021, patient was seen and examined: On examination she appeared in good health and spirits, she does not appear to be in any distress. Vital signs as documented. Skin warm and dry and without overt rashes. Neck without JVD, thyroid appears normal, trachea is midline, neck is supple. Lungs clear, normal air movement was noted. Heart exam notable for regular rhythm, normal sounds and absence of murmurs, rubs or gallops. Abdomen unremarkable and without evidence of organomegaly, masses, or abdominal aortic enlargement, bowel sounds are pre sent in all 4 quadrants, no abdominal tenderness was noted. Extremities nonedematous, no cyanosis was noted, no clubbing was noted. Neuro: Cranial nerves II through XII are grossly intact, no focal motor deficits were noted, sensation to light touch and pinprick is intact, motor exam 5/5 throughout. Psych: Patient is alert and oriented x3, she does not appear anxious or depressed, she does not appear agitated. On 09/18/2021, she was felt to be stable for discharge home. Weight / BMI Weight Weight: 56.699 kg Body Mass Index (BMI) 22.8 ABG / Lab / Microbiology Data Result Diagrams: 09/18/21 05:00 09/18/21 05:00 Laboratory: Laboratory Results - last 24 hr 09/17/21 12:40: WBC 23.7 H, RBC 3.86 L, Hgb 11.5 L, Hct 35.8 L, MCV 92.7, MCH 29.8, MCHC 32.1, RDW Std Deviation 45.2 H, RDW Coeff of Hiram 13.2, Plt Count 169, MPV 10.8, Neut % (Auto) Not Reportable, Absolute Neuts (auto) 21.1 H, Absolute Lymphs (auto) 0.71 L, Total Counted 100, Neutrophils % (Manual) 84 H, Band Neutrophils % 5, Lymphocytes % (Manual) 3 L, Monocytes % (Manual) 4, Metamyelocytes % 3 H, Myelocytes % 1 H, Diff Path Review November edgar, Platelet Estimate ADEQUATE, RBC Morphology NORM C+C 09/17/21 16:19: WBC 21.8 H, RBC 4.00 L, Hgb 11.7 L, Hct 35.5 L, MCV 88.8, MCH 29.3, MCHC 33.0, RDW Std Deviation 42.7, RDW Coeff of Hiram 13.1, Plt Count 176, MPV 10.9, Neut % (Auto) Not Reportable, Absolute Neuts (auto) 18.7 H, Absolute Lymphs (auto) 0.44 L, Total Counted 100, Neutrophils % (Manual) 81 H, Band Neutrophils % 5, Lymphocytes % (Manual) 2 L, Monocytes % (Manual) 5, Metamyelocytes % 5 H, Myelocytes % 2 H, Diff Path Review November edgar, Platelet Estimate ADEQUATE, RBC Morphology NORM [facility] 09/18/21 05:00: Sodium 137, Potassium 3.7, Chloride 108 H, Carbon Dioxide 25.0, Anion Gap 4 L, BUN 34 H, Creatinine 1.18 H, Estim Creat Clear Calc 32.58, Est GFR (MDRD) Af Amer 57 L, Est GFR (MDRD) Non-Af 48 L, BUN/Creatinine Ratio 28.8 H , Glucose 116 H, Calcium 8.1 L 09/18/21 05:00: WBC 14.9 H, RBC 3.58 L, Hgb 10.1 L, Hct 31.9 L, MCV 89.1, MCH 28.2, MCHC 31.7 L, RDW Std Deviation 43.2, RDW Coeff of Hiram 13.2, Plt Count 162, MPV 11.5, Immature Gran % (Auto) 4.400 H, Neut % (Auto) 85.1 H, Lymph % (Auto) 5.6 L, [place] % (Auto) 4.4, Eos % (Auto) 0.3, Baso % (Auto) 0.2, Absolute Neuts (auto) 12.7 H, Absolute Lymphs (auto) 0.83, Nucleated RBC % 0 Microbiology: Microbiology 09/16/21 Unknown Urine, Clean Catch Urine Culture - Final Escherichia coli D/C Instructions Discharge Diet: No restrictions Weight Bearing Status: Full weight bearing Meaningful Use Info Meaningful Use Diagnoses (Choose all that apply): None applicable Discharge Plan Admission Admit Date/Time: 09/16/21 20:23 Primary Reason for Your Visit: left ureteral stone Attending Provider: Leandro Escalante Primary Care Provider: Vlad Dennis Consulting Providers: Shruti Christian Instructions Patient Instructions: Urinary Tract Infections in Women, ED Kidney Stone w/ Colic Additional Instructions / Restrictions: Start your antibiotics tonite first dose Discharge Orders/Prescriptions Prescriptions: New cephalexin 500 mg capsule 500 mg PO BID Qty: 14 RF: 0 Continued loperamide [Imodium A-D] 2 mg capsule 2 mg PO Q4H PRN (Reason: diarhea) RF: 0 Spiriva with HandiHaler 18 mcg capsule, w/inhalation device 2 cap INHALATION DAILY RF: 0 Gilotrif 30 mg tablet 30 mg PO TUFR RF: 0 melatonin 10 mg capsule 10 mg PO HS PRN (Reason: Sleep) RF: 0 albuterol sulfate [Ventolin HFA] 90 mcg/actuation HFA aerosol inhaler 2 puff inhalation Q6H PRN (Reason: copd) RF: 0 Culturelle 15 billion cell capsule, sprinkle 1 cap PO DAILY RF: 0 multivitamin with folic acid 1 TABLET tablet 1 tab PO DAILY RF: 0 dicyclomine 20 mg tablet 20 mg PO BID RF: 0 cholecalciferol (vitamin D3) 1,000 UNIT tablet 1,000 unit PO DAILY RF: 0 carvedilol [Coreg] 12.5 mg tablet 12.5 mg PO BID RF: 0 hyoscyamine sulfate 0.125 mg tablet 0.125 mg PO DAILY RF: 0 Referrals / Follow Up: Shruti Christian MD [STAFF PHYSICIAN] - See Referral Note (in 2 weeks-call for appointment) Vlad Dennis MD [Primary Care Provider] - Within 2 Weeks (you will need another repeat BMP to check on your kidney function) Disposition Disposition (needs filled in before D/C Order can be placed): Home, Self Care Charges/Coding Visit Charges Inpatient E&M: 78960 Disch Hosp
[2021-09-19 10:27] LABS: Pathologist Review Reviewed
[2021-09-19 10:27] LABS: Pathologist Review Reviewed
[2021-10-06 12:23] LABS: Source Kidney
== END 2021-09-18 13:20 | disposition home or self-care (01) | DRG 690 ==
LOC: ED 19:19 → MS3 20:32
PROVIDERS: Anesthesiology; Urology; Admitting Provider Family Medicine; Emergency Provider Emergency Medicine; PCP Family Medicine; Visit Provider Internal Medicine
DX: N13.6 Pyonephrosis (principal); C34.92 Malignant neoplasm of unspecified part of left bronchus or lung; N17.9 Acute kidney failure, unspecified; J44.9 Chronic obstructive pulmonary disease, unspecified; I10 Essential (primary) hypertension; B96.20 Unspecified Escherichia coli [E. coli] as the cause of diseases classified elsewhere; K21.9 Gastro-esophageal reflux disease without esophagitis; Z79.899 Other long term (current) drug therapy; Z87.891 Personal history of nicotine dependence
CPT/HCPCS: 36415; 74176; 80048; 80061; 81001; 82360; 85025; 87077; 87086; 87088; 87186; 93005; 94640; 99251; 99284; J7030; J7050; A4216; G0463; J2405

== ENCOUNTER 2021-09-21 11:05 | Outpatient (CLI) | payer MEDICARE, OTHER, SELFPAY ==
[2021-09-21 12:57] LABS: ALB/GLOB Ratio 0.8 RATIO (0.9-2.4); AST(SGOT) 16 U/L (15-37); Alanine Aminotransfer ALT/SGPT 41 U/L (13-56); Albumin, Serum 3.5 g/dL (3.2-5.0); Alkaline Phosphatase 119 U/L (45-117); Anion Gap 7 (5-15); BUN 20 mg/dL (7-18); BUN/Creat Ratio 20.5 RATIO (10-20); Chloride 107 mmol/L (98-107); Creatinine, Serum 0.98 mg/dL (0.55-1.02); EST Glomerular Filtration Rate 59 mL/min (>60); Est Glom Filt Rate - Afr Amer 72 mL/min (>60); Globulin 4.3 g/dL (2.2-4.2); Glucose 101 mg/dL (74-106); Magnesium 2.3 mg/dL (1.6-2.6); Potassium 3.3 mmol/L (3.5-5.1); Protein, Total 7.8 g/dL (6.4-8.2); Sodium Level 138 mmol/L (136-145)
== END 2021-09-21 23:59 | disposition home or self-care (01) ==
PROVIDERS: PCP Family Medicine; Referring Provider Family Medicine; Visit Provider Family Medicine
DX: R19.7 Diarrhea, unspecified (principal)
CPT/HCPCS: 36415; 80053; 83735

== ENCOUNTER 2021-09-22 10:03 | Outpatient (CLI) | payer MEDICARE, OTHER, SELFPAY | END 2021-09-22 23:59 | disposition home or self-care (01) | LOC: LAB 10:05 | PROVIDERS: PCP Family Medicine; Referring Provider Family Medicine; Visit Provider Family Medicine | DX: R19.7 Diarrhea, unspecified (principal) | CPT/HCPCS: 87493; 87506 ==

== ENCOUNTER → 2021-11-27 | Outpatient (CLI) | payer MEDICARE, OTHER, SELFPAY ==
--- NOTE | 2021-11-27 07:36 | BI_ITS ---
MAMMOGRAPHY - BILATERAL SCREENING REASON FOR EXAM: Female, 76 years old. Routine annual screening examination. PERTINENT HISTORY: Aunt with breast cancer. TECHNIQUE: Digital bilateral breast moon (3D mammographic acquisition) in the CC and MLO projections. 2-D mediolateral oblique (MLO) and craniocaudad (CC) views of both breasts were obtained. CAD: Full Field Digital Mammography with Computer Added Detection was performed. COMPARISON: Comparison is made with prior study dated 11/25/2020 and 10/19/2019. FINDINGS: Breast Composition: The breasts are extremely dense, which lowers the sensitivity of mammography. There are no dominant masses or suspicious calcifications. No other significant abnormalities are identified. There has been no significant change since the prior study. BI/SCRN MAMM (CAD)W/MOON BILAT IMPRESSION: Stable bilateral screening mammogram. Yearly follow-up mammogram recommended. (A) ASSESSMENT CATEGORY: BIRADS Category 1: Negative. A letter regarding these results will be sent to the patient by the facility within 30 days. Approximately 10% of breast cancers are not detected by mammography. A normal mammogram should not delay biopsy of a clinically suspicious abnormality. [id number] Electronically Signed: Kingsley Clements MD at 8:23 EDT ,
== END | disposition home or self-care (01) ==
LOC: OPBI 07:34
PROVIDERS: PCP Family Medicine; Visit Provider Family Medicine
DX: Z12.31 Encounter for screening mammogram for malignant neoplasm of breast (principal)
CPT/HCPCS: 77063; 77067

== ENCOUNTER → 2022-01-25 | Outpatient (CLI) | payer MEDICARE, OTHER, SELFPAY ==
--- NOTE | 2022-01-25 07:53 | CT_ITS ---
STUDY: CT CHEST T ABDOMEN WITH CONTRAST REASON FOR EXAM: Female, 76 years old. MONITOR LUNG CA-IV ONLY RADIATION DOSAGE (If Supplied By Facility): CTDIvol = ( 10.10 ) mGy, DLP = ( 481.37 ) mGycm TECHNIQUE: Transaxial imaging was performed following intravenous administration of IV 100mL Isovue-300. Multiplanar coronal and sagittal images were reformatted. Individualized dose optimization techniques were used for this CT. COMPARISON: Comparison is made with prior study dated 09/07/2021. FINDINGS: CHEST Stable heterogeneous spiculated nodule in the left lung apex. It measures 2.3 cm x 2.2 cm. This essentially unchanged. Bronchiectasis is seen within the nodule. Stable small nodule in the right lung apex. Stable bronchiectasis and pneumonitis along the right hilum as well as in the superior segment of the right lower lobe. The previously seen spiculated nodule in the anterior aspect of the left upper lobe has decreased in size. It presently measures 5.6 mm. There is no demonstrated pleural abnormality. There are calcifications of the coronary arteries. Normal mediastinum. Normal hilar regions. Normal unenhanced pulmonary arteries. Normal aorta arch and descending thoracic aorta. There is demineralization of the thoracic spine. There is no demonstrated abnormality of the visualized upper abdomen. ABDOMEN Normal liver. There are surgical clips in the gallbladder fossa consistent with a prior cholecystectomy. Normal spleen. Normal pancreas. Normal bilateral adrenal glands. Normal right kidney. Normal left kidney. Normal visualized stomach. Normal small intestine. Moderate amount of fecal material is seen in the colon. The appendix is visualized and appears normal. There is scattered atherosclerotic calcification of the abdominal aorta, without a demonstrated aneurysm. Normal inferior vena cava. Normal retroperitoneum. Normal abdominal wall. There are diffuse degenerative changes of the visualized lumbar spine. CT/CT Chest AND Abd W/ Contrast IMPRESSION: Essentially stable examination with the decreased size of the previously seen spiculated nodule in the anterior aspect of the left upper lobe. Electronically Signed: Kingsley Clements MD at 9:16 EDT ,
== END | disposition home or self-care (01) ==
LOC: CT 07:48
PROVIDERS: PCP Family Medicine; Visit Provider Internal Medicine Medical Oncology
DX: C34.92 Malignant neoplasm of unspecified part of left bronchus or lung (principal)
CPT/HCPCS: 71260; 74160; Q9967

== ENCOUNTER → 2022-03-02 | Outpatient (CLI) | payer MEDICARE, OTHER, SELFPAY ==
--- NOTE | 2022-03-02 09:14 | RAD_ITS ---
STUDY: X-RAY - PELVIS AND BILATERAL HIPS REASON FOR EXAM: Female, 76 years old. HAVING RIGHT HIP PAIN TECHNIQUE: AP view of the pelvis.? 2 views of the right hip, and 2 views of the left hip were obtained. COMPARISON: None. FINDINGS: There is a non-specific bowel gas pattern. Normal visualized soft tissue structures. Normal bilateral iliac wings, sacroiliac joints and visualized sacrum. Normal bilateral superior and inferior pubic rami. Normal pubic symphysis. Normal bilateral ischial tuberosities. Normal visualized right femoral head. Normal right acetabulum. Normal right hip joint. Normal visualized left femoral head. Normal left acetabulum. Normal left hip joint. RAD/Hips B/L min 2 views w/ Pelvis IMPRESSION: Normal x-ray examination of the pelvis and bilateral hips. Electronically Signed: Kingsley Clements MD at 10:49 EDT ,
[2022-03-02 12:55] LABS: Anion Gap 5 (5-15); BUN 19 mg/dL (7-18); BUN/Creat Ratio 19.9 RATIO (10-20); Calcium,Total 9.1 mg/dL (8.5-10.1); Chloride 108 mmol/L (98-107); Cholesterol 201 mg/dL (200); Creatinine, Serum 0.96 mg/dL (0.55-1.02); EST Glomerular Filtration Rate 60 mL/min (>60); Est Glom Filt Rate - Afr Amer 73 mL/min (>60); Glucose 105 mg/dL (74-106); High Density Lipoprotein 48 mg/dL; Sodium Level 141 mmol/L (136-145); Triglycerides 252 mg/dL; Very Low Density Lipoprotein 50 mg/dL (5-40)
== END | disposition home or self-care (01) ==
LOC: MTLAB 09:12
PROVIDERS: PCP Family Medicine; Referring Provider Family Medicine; Visit Provider Family Medicine
DX: M25.551 Pain in right hip (principal); I10 Essential (primary) hypertension
CPT/HCPCS: 36415; 73521; 80048; 80061

== ENCOUNTER → 2022-03-08 | Outpatient (CLI) | payer MEDICARE, OTHER, SELFPAY ==
--- NOTE | 2022-03-08 07:45 | RAD_ITS ---
STUDY: X-RAY - ESOPHAGUS (BARIUM SWALLOW) WITH FLUOROSCOPY REASON FOR EXAM: Female, 76 years old. DYSPHAGIA TECHNIQUE: 15 view(s) of the esophagus were obtained following swallowing of barium. FLUOROSCOPY TIME (if supplied): (30 seconds) minutes/seconds COMPARISON: None. FINDINGS: There is no demonstrated esophageal foreign body tertiary contraction of the distal esophagus.. There is no demonstrated stricture or mucosal abnormality. Normal gastroesophageal junction, without a demonstrated hiatal hernia. The patient ingested a 12 mm tablet to barium. The tablet is trapped at the gastroesophageal junction. There is atherosclerotic calcification of the aortic arch with tortuosity of the descending aorta. Normal visualized pulmonary parenchyma. Normal visualized osseous structures of the thorax. RAD/Esophagus Dual Contrast IMPRESSION: Tertiary contraction of the distal esophagus. The ingested 12 mm tablet of barium is trapped at the gastroesophageal junction. Electronically Signed: Kingsley Clements MD at 8:46 EDT ,
== END | disposition home or self-care (01) ==
LOC: RAD 07:43
PROVIDERS: PCP Family Medicine; Referring Provider Family Medicine; Visit Provider Family Medicine
DX: R13.10 Dysphagia, unspecified (principal)
CPT/HCPCS: 74221

== ENCOUNTER → 2022-05-28 | Outpatient (CLI) | payer MEDICARE, OTHER, SELFPAY ==
--- NOTE | 2022-05-28 08:15 | CT_ITS ---
EXAM: CT CHEST AND ABDOMEN WITH INTRAVENOUS CONTRAST CLINICAL INDICATION: MONITOR LUNG CA TECHNIQUE: Helically acquired images were obtained of the chest and abdomen with intravenous contrast. This CT exam was performed using one or more of the following dose reduction techniques: automated exposure control, adjustment of the mA and/or kV according to patient size, and/or use of iterative reconstruction technique. This report was created using [employer] report generation technology. CONTRAST: IV 100mL Isovue-300 RADIATION DOSE: CTDIvol = 12.46 mGy, DLP = 562.78 mGy-cm COMPARISON: CT chest and abdomen with intravenous contrast 01/25/2022. FINDINGS: CHEST: LUNGS AND PLEURAL SPACES: 4 cm x 2.4 cm mass in the left lung apex, previously 4 x 1.7 cm. 1.3 x 0.8 cm subpleural nodule in the right lung apex is unchanged. Right perihilar fibrosis with air bronchograms and/or mass is unchanged. HEART: Unremarkable. Heart size is normal. No pericardial effusion. No significant coronary artery calcifications. MEDIASTINUM: Unremarkable. No mediastinal or hilar adenopathy. Esophagus is unremarkable. No hiatal hernia. THYROID: Unremarkable. No thyroid lesions. ABDOMEN: LIVER: Moderate diffuse fatty infiltration of the liver is unchanged. GALLBLADDER AND BILE DUCTS: Surgical clips in the gallbladder fossa area from cholecystectomy. No intra- or extrahepatic biliary ductal dilation. PANCREAS: Unremarkable. No focal cystic or solid mass. SPLEEN: Unremarkable. Normal size without focal cystic or solid mass. ADRENALS: Unremarkable. No nodules. KIDNEYS AND URETERS: Unremarkable. Normal renal size and position. Small nonenhancing right renal cyst is unchanged. No hydronephrosis. STOMACH AND BOWEL: Unremarkable. No stomach or bowel distention. No focal inflammatory change. INTRAPERITONEAL SPACE: Unremarkable. No ascites or other fluid collection. No free air. CHEST and ABDOMEN: BONES/JOINTS: Pronounced L4-L5 disc space narrowing with nearly grade 2 anterolisthesis of L4 on L5 and pronounced stenosis of the left intervertebral neural foramen secondary to bilateral L4 pars defects. Moderate stenosis of the right L4-5 intervertebral neural foramen. No suspicious lytic or blastic abnormality. SOFT TISSUES: Unremarkable. No discrete abdominal wall hernia. VASCULATURE: Unremarkable. Aorta is non-dilated. No aortic dissection. No obvious central pulmonary embolism although this study was not performed with the pulmonary embolism protocol. LYMPH NODES: Unremarkable. No enlarged lymph nodes. CT/CT Chest AND Abd W/ Contrast IMPRESSION: 1. Mild increase in size of left lung apical mass measuring 4 x 2.4 cm, previously 4 x 1.7 cm. 2. No interval change so subpleural nodule in the right lung apex measuring 1.3 x 0.8 cm. 3. Right perihilar fibrosis with air bronchograms and/or mass is unchanged. 4. Moderate diffuse hepatic steatosis is unchanged. 5. Small nonenhancing right renal cyst is unchanged. 6. Pronounced stenosis of the left L4-L5 intervertebral neural foramen, moderate stenosis of the right L4-5 intervertebral neural foramen, pronounced L4-L5 degenerative disc space narrowing, nearly grade 2 anterolisthesis of L4 on L5 and bilateral L4 pars defects are unchanged. Electronically Signed: Trevin Olivo MD at 11:59 EST ,
[2022-05-28 08:40] LABS: CREATININE FINGERSTICK < 0.9 mg/dL (0.55-1.02); EGFR FINGERSTICK > 60.0000 mL/min (>60)
== END | disposition home or self-care (01) ==
LOC: CT 08:14
PROVIDERS: PCP Family Medicine; Visit Provider Internal Medicine Medical Oncology
DX: C34.92 Malignant neoplasm of unspecified part of left bronchus or lung (principal)
CPT/HCPCS: 71260; 74160; Q9967

== ENCOUNTER → 2022-06-25 | Outpatient (CLI) | payer MEDICARE, OTHER, SELFPAY ==
--- NOTE | 2022-06-25 14:53 | ECHODONC_ITS ---
Reason For Study: ARRYTHMIA Procedure This was a 2D Doppler, Color Flow transthoracic echocardiogram. Myocardial strain analysis was performed in this exam to aid in the assessment of cardiac function. Exam performed in department. Left Ventricle Normal LV size. Left ventricular systolic function is normal. The estimated ejection fraction is 55 %. No regional wall motion abnormalities noted. Right Ventricle Normal RV size. Normal systolic function. Atria Normal left atrium. Normal right atrium. Mitral Valve Normal mitral valve. Tricuspid Valve Normal tricuspid valve. Aortic Valve Normal aortic valve. Trisinus/trileaflet aortic valve. Pulmonic Valve Normal pulmonic valve. Great Vessels Normal aortic root. The pulmonary artery is normal size. Inferior vena cava collapse with respiration. Pericardium/Pleural No pericardial effusion. MMode/2D Measurements & Calculations LVIDd: 4.5 cm IVSd: 0.93 cm Ao root diam: 3.4 cm LVIDs: 3.2 cm LVPWd: 0.80 cm FS: 30.0 % LAV(MOD-sp4): 23.9 ml LVAd ap4: 21.2 cm2 SV(MOD-sp4): 26.0 ml LVLd ap4: 6.9 cm EDV(MOD-sp4): 53.6 ml EDV(sp4-el): 55.7 ml LVAs ap4: 13.4 cm2 LVLs ap4: 6.0 cm ESV(MOD-sp4): 27.6 ml ESV(sp4-el): 25.5 ml EF(MOD-sp4): 48.4 % EF(sp4-el): 54.2 % SV(sp4-el): 30.2 ml LA A4 area: 11.5 cm2 LA dimension(2D): 3.1 cm RA A4 area: 10.0 cm2 Time Measurements MV dec time: 0.09 sec Doppler Measurements & Calculations MV E max escobar: 57.7 cm/sec Lat Peak E' Escobar: 4.6 cm/sec Med Peak E' Escobar: 10.0 cm/sec MV A max escobar: 109.2 cm/sec E/E' lat: 12.6 E/E' med: 5.8 MV E/A: 0.53 MV V2 max: 106.9 cm/sec Ao V2 max: 134.4 cm/sec MV max P.6 mmHg MV dec slope: 619.5 cm/sec2 Ao max P.2 mmHg MV V2 mean: 63.6 cm/sec Ao V2 mean: 98.1 cm/sec MV mean P.9 mmHg Ao mean P.3 mmHg MV V2 VTI: 20.2 cm Ao V2 VTI: 25.5 cm AV (velocity ratio): 0.74 LV V1 max: 99.7 cm/sec PA V2 max: 89.6 cm/sec LV V1 max P.0 mmHg PA V2 mean: 60.8 cm/sec LV V1 mean P.0 mmHg LV V1 mean: 66.7 cm/sec LV V1 VTI: 19.0 cm ECHO/ONC Echo Complete Interpretation Summary Normal LV size. Left ventricular systolic function is normal. The estimated ejection fraction is 55 %. Structurally normal valves. The global longitudinal strain is moderately abnorm al. The global longitudinal strain = -14.7% (abnormal). The global longitudinal strain has wor sened. Ordering Physician: Aquiles Peralta Referring Physician: Aquiles Peralta Performed By: Marni Delgado RCS
== END | disposition home or self-care (01) ==
LOC: CVS 14:52
PROVIDERS: PCP Family Medicine; Referring Provider Internal Medicine Cardiovascular Disease; Visit Provider Internal Medicine Cardiovascular Disease
DX: I34.0 Nonrheumatic mitral (valve) insufficiency (principal)
CPT/HCPCS: 93306; 93356

== ENCOUNTER → 2022-10-15 | Outpatient (CLI) | payer MEDICARE, OTHER, SELFPAY ==
--- NOTE | 2022-10-15 07:07 | CT_ITS ---
INDICATION: Worsening shortness of breath EXAMINATION: CT CHEST WITH CONTRAST - CT Chest W/ Contrast Injection TECHNIQUE: Helically acquired images were obtained of the chest following IV contrast. A radiation dose optimization technique was used for this scan. IV Contrast dosage and agent: 100 mL Isovue 300 contrast. COMPARISON: 05/28/2022 FINDINGS: LUNGS, PLEURA AND LARGE AIRWAYS: Lung windows show no interval change in the appearance of a previously described 4 x 2.4 cm spiculated mass in the left apex. There is underlying emphysema also unchanged. There is a much larger free-flowing left pleural effusion on current study than noted previously. Stable fibrotic scarring in the medial right lung base which I suspect is due to radiation therapy. The previously noted lingular nodule has increased in size. On the previous study it measured 1.59 x 0.92 cm, while on current study and measures 2.13 x 0.99 cm. THYROID: No thyroid lesions. HEART AND PERICARDIUM: Heart size is normal. No pericardial effusion. There are calcified coronary vessels. VESSELS: Thoracic aorta is not dilated. No aortic dissection. No obvious central pulmonary embolism although this study was not performed with the pulmonary embolism protocol. MEDIASTINUM AND NICK: No suspicious mediastinal or hilar adenopathy, there are scattered subcentimeter in short axis dimension subcarinal lymphadenopathy.. Esophagus is unremarkable. No hiatal hernia. UPPER ABDOMEN: Limited cuts through the upper abdomen show fatty infiltration of the liver, and previous cholecystectomy. BONES: No suspicious lytic or blastic abnormality. Bony structures show degenerative change CT/Chest WITH Contrast IMPRESSION: Stable appearance of a suspicious spiculated left upper lobe nodule, it again measures approximately 4 x 2.4 cm. Significant increase in size of a previously noted left pleural effusion. This should be considered a malignant effusion until proven otherwise. Increase in size of a previously noted lingular nodule, measurements as listed above Stable chronic scarring in the medial right lower lobe likely a result of radiation therapy No suspicious adenopathy Calcified coronary vessels Degenerative bony changes Fatty liver Electronically Signed: Jose Rafael Wilson MD at 10:22 EDT ,
== END | disposition home or self-care (01) ==
LOC: CT 07:06
PROVIDERS: PCP Family Medicine; Visit Provider Nurse Practitioner Family
DX: C34.92 Malignant neoplasm of unspecified part of left bronchus or lung (principal); R06.09 Other forms of dyspnea
CPT/HCPCS: 71260; Q9967

== ENCOUNTER → 2022-10-17 | Outpatient (CLI) | payer MEDICARE, OTHER, SELFPAY ==
--- NOTE | 2022-10-17 06:30 | MRI_ITS ---
INDICATION: Metastatic lung cancer, Non-squamous cell, left upper lobe. New onset headaches. EXAMINATION: MR Brain WO/W Contrast TECHNIQUE: Multiplanar and multisequence MR images of the brain were obtained without and with gadolinium. IV Contrast Dosage and Agent: Clariscan 12 mL.. COMPARISON: MRI brain December 14, 2020. September 09, [address] chest October 15, 2022. FINDINGS: BRAIN PARENCHYMA: No restricted diffusion to suggest an acute infarct. Likely old lacunar infarct in the left centrum semiovale white matter, unchanged. Old lacunar infarcts in the bilateral cerebellar hemispheres, stable. No acute parenchymal hemorrhage. No focal mass, vasogenic edema or midline shift. No abnormal brain parenchymal enhancement identified. Parenchymal volume loss and small vessel ischemic disease changes, appropriate for age. Somewhat thickened enhancing appearance of the infundibulum, stable compared to the 2020 exam; more prominent compared to the 2014 exam. CSF SPACES: No acute extra-axial hemorrhage. No abnormal extra-axial enhancement is identified. No hydrocephalus. Stable size and configuration of the ventricles and sulci Basal cisterns are patent. VASCULAR SYSTEM: Normal flow voids in the major intracranial circulation. Vasculature enhances normally. CALVARIUM, SKULL BASE, PARANASAL SINUSES AND MASTOID AIR CELLS: Clear. No expansile changes. ORBITS: Both globes, extraocular muscles, optic nerves and retrobulbar fat appear unremarkable. MRI/Brain W/WO Contrast IMPRESSION: No evidence of metastatic disease to the brain. Old infarcts, parenchymal volume loss and small vessel ischemic disease changes. Electronically Signed: Vlad Garrett MD at 12:37 EDT ,
== END | disposition home or self-care (01) ==
LOC: MRI 06:30
PROVIDERS: PCP Family Medicine; Referring Provider Nurse Practitioner Family; Visit Provider Nurse Practitioner Family
DX: R51.9 Headache, unspecified (principal); C34.12 Malignant neoplasm of upper lobe, left bronchus or lung
CPT/HCPCS: 70553; A9575

== ENCOUNTER → 2022-10-22 | Outpatient (CLI) | payer MEDICARE, OTHER, SELFPAY ==
--- NOTE | 2022-10-22 | FLU_PTH ---
PATIENT: GEE LAURA LOC: [facility]#:[id number] AGE/SX: 77/F ROOM: RE10/22/[address]: Dr. Timmy Hartmann MD : 1945 BED: DIS: 10/22/2022 SPEC #: [id number] RECD: 10/22/22 08:37 STATUS: ISACC REPetrona #: [id number] LUCY: 10/22/22 00:[address]: Timmy Hartmann DEPT: CYTOLOGY RECD BY: David Fritz ENTERED: 10/22/22 10:02 SP TYPE: Fluid OTHR DR: Dr. Vlad Dennis MD Tissues: THORACIC FLUID Procedures: Special Stain Group II Surgery Specimen Level IV Cytospin Fluid HEADER OPERATION: Thoracentesis - left PRE-OP DIAGNOSIS: Left pleural effusion TISSUE SUBMITTED: Thoracentesis fluid for cytology DIAGNOSIS CYTOLOGY Thoracentesis fluid for cytology (cytospin and cell block): Positive for malignant cells consistent with metastatic adenocarcinoma of lung. See comment. AM:kevin 10/23/2022 COMMENT Immunohistochemistry ([id number]) supports the above diagnosis. Case has been reviewed in consultation with Dr. Oquendo who concurs with the above diagnosis. IDC:SJ CYTOLOGY STUDY Slides are reviewed. CYTOLOGY GROSS Received is 110 ml of dark red cloudy fluid labeled with the patient's name and and designated per the requisition as thoracentesis. Submitted for cytology preparation including cell block. / kevin 10/22/2022 TC:0 CPT: 67479, 22879 ADDENDUM ADDENDUM ADDENDUM ADDENDUM ADDENDUM ADDENDUM ADDENDUM ADDENDUM ADDENDUM ADDENDUM ADDENDUM ADDENDUM ADDENDUM ADDENDUM ADDENDUM ADDENDUM ADDENDUM ADDENDUM ADDENDUM ADDENDUM 11/12/2022 14:42 ADDENDUM 11/12/2022 14:42 ADDENDUM 11/12/2022 14:42 ADDENDUM 11/12/2022 14:42 ADDENDUM 11/12/2022 14:42 PD-L1 (KEYTRUDA) IMMUNOHISTOCHEMICAL ANALYSIS FROM [facility] RESULTS: Tumor proportion score: <1% / Negative [facility] NGS REPORT FROM [facility] RESULT SUMMARY: Abnormal IMMUNOTHERAPY BIOMARKERS: Tumor Mutation [place]: Low (6.3 Mutations / MB) Microsatellite Instability: MSI Negative (0.81%) PERTINENT NEGATIVE RESULTS: The following genes are NEGATIVE for clinically relevant mutations. Mutational hotspots and surrounding exonic regions were interrogated for DNA level point mutations and indels (fusions not assayed). AKT1, ALK, ATR, BRAF, CHEK1, DDR2, ERBB2, ERBB3, FGFR1, KRAS, MAP2K1, MET, NRAS, NTRK1, POLD1, POLE, ROS1, STK11, TERT Please see complete report in e-chart or EMR
--- NOTE | 2022-10-22 | IMM_PTH ---
PATIENT: GEE LAURA LOC: [facility]#:[id number] AGE/SX: 77/F ROOM: RE10/22/[address]: Dr. Timmy Hartmann MD : 1945 BED: DIS: 10/22/2022 SPEC #: [id number] RECD: 10/23/22 13:48 STATUS: ISACC REQ #: [id number] LUCY: 10/22/22 00:[address]: Timmy Hartmann DEPT: IMMUNOHISTOCHEMISTRY RECD BY: Marisol Greene ENTERED: 10/23/22 13:56 SP TYPE: IMMUNO OTHR DR: Dr. Vlad Dennis MD Tissues: THORACIC FLUID Procedures: Synapto (add) RCC (add) NAPSIN A (add) CD45 (add) CD56 (add) CEA (add) CHROMO (add) CK20 (add) CK7 (add) CK8 (add) ROSY (add) KI-67 (add) P53 (add) KY (add) TTF1 (add) Vimentin (add) Pankeratin (add) P40 (add) ER (initial) S-100 (add) PHYSICIAN & [address] [address] SPECIMEN INFORMATION: Tissue Source: Thoracentesis fluid Clinical Info: Left pleural effusion Specimen Number: [id number] CPT code: 50000, 19284 x19 METHODOLOGY: Deparaffinized sections of prefer/formalin-fixed tissue or PAP/DQ stained slides are incubated with monoclonal/polyclonal antibodies/oligonucleotide probes. Localization is made via biotin free immunoperoxidase method. Appropriate controls are performed and reacted as expected. Results on target cell population are indicated in the following table: RESULTS: ANTIBODY / CLONE RESULT ER (6F11) negative KY (1E2) negative AE1-3 (AE1/AE3/PCK26) positive CK7 (OV-TL12/30) positive CK8 (31rdltM07) positive CK20 (KS20.8) negative CD45 (RP2/18) negative Vimentin (V9) negative S-100 (4C4.9) negative CD56 (123C3.D5) negative Chromo (LK2H10) negative Synapto (polyclonal) negative TTF-1 (8G7G3/1) positive Napsin A (Rabbit Polyclonal) positive RCC (PN-15) negative P40 (BC28) negative ROSY (E29) positive CEA (11-7/TF-3HB-1) positive P53 (DO-7) positive, missense mutation pattern Ki-67 (30-9) positive, 10% These tests were developed and their performance characteristics determined by [facility]. They may not have been cleared or approved by the U.S. Food and Drug Administration. The FDA has determined that such clearance or approval is not necessary. The above immunohistochemical/dualISH markers are ordered and reviewed by the Pathologist. INTERPRETATION: Thoracentesis fluid (cell block): Non-small cell carcinoma, adenocarcinoma. See comment. AM:kevin 10/24/2022 Comment: The IHC pattern is consistent with lung primary.
--- NOTE | 2022-10-22 07:20 | US_ITS ---
EXAM: IR Thoracentesis needle or catheter, aspiration with imaging HISTORY: PLEURAL EFFUSION LEFT LUNG Technique: Ultrasound-guided COMPARISON: Chest x-ray from 10/10/2022 FINDINGS: After informed consent was obtained, which included discussion of risks and benefits of the procedure including risk of pneumothorax and possible chest tube insertion, an appropriate site for thoracentesis was determined using sonographic guidance. A spot was marked for thoracentesis of the left hemithorax. The area was prepped and draped in a sterile manner and 1% Xylocaine was used as local anesthetic. Under sonographic guidance a valved drainage catheter was advanced into the left hemithorax, approximately 120 mL of blood-tinged serous fluid was withdrawn from the left hemithorax and saved for laboratory evaluation. Approximately 450 more mL of blood-tinged serous fluid was withdrawn from the left hemithorax. Patient tolerated the procedure well with no immediate complications, and post procedural chest x-ray did not show evidence of pneumothorax. US/Thoracentesis W US IMPRESSION: Successful ultrasound-guided thoracentesis. Approximately 550 mL of blood tinged serous fluid was withdrawn from the left hemithorax. Electronically Signed: Jose Rafael Wilson MD at 9:08 EDT ,
[2022-10-22 08:14] VITALS: BP 101/47; BP 105/60; BP 108/62; PULSE 103; PULSE 114; RESP 18; RESP 20; RESP 28; O2SAT 100; O2SAT 96; O2SAT 97
[2022-10-22] MEDS: Lidocaine 2% (20 ml mdv) 20 ML Vial INFILT (08:15)
--- NOTE | 2022-10-22 08:30 | RAD_ITS ---
STUDY: X-RAY CHEST REASON FOR EXAM: Female, 77 years old. Postthoracentesis TECHNIQUE: Inspiration and expiration portable views of the chest COMPARISON: 10/10/2022. FINDINGS: Lungs are expanded with chronic interstitial changes. Previously noted left pleural effusion has resolved after thoracentesis. There is no postprocedural pneumothorax. No organized infiltrate but there is a stable suspicious spiculated right perihilar mass unchanged from previous studies, this is a known malignancy. The right lung is free of a superimposed acute process Normal size heart. Normal mediastinum and aleja. Normal visualized pulmonary arteries. There is atherosclerotic calcification of the aortic arch with tortuosity. There are diffuse degenerative changes of the visualized thoracic spine. Normal visualized ribs, clavicles, and shoulders. There is no demonstrated abnormality of the visualized soft tissue structures of the upper abdomen. RAD/Chest Insp/Exp 2 View IMPRESSION: No postprocedural pneumothorax Stable fibrotic scarring in the left apex, stable spiculated right perihilar mass Near complete resolution of the previously noted left pleural effusion after thoracentesis Electronically Signed: Jose Rafael Wilson MD at 8:41 EDT ,
== END | disposition home or self-care (01) ==
LOC: US 07:19
PROVIDERS: PCP Family Medicine; Referring Provider Internal Medicine Medical Oncology; Visit Provider Internal Medicine Medical Oncology
DX: C34.92 Malignant neoplasm of unspecified part of left bronchus or lung (principal); J91.0 Malignant pleural effusion
CPT/HCPCS: 32555; 71046; 88108; 88305; 88313; 88341; 88342

== ENCOUNTER → 2022-11-28 | Outpatient (CLI) | payer MEDICARE, OTHER, SELFPAY ==
--- NOTE | 2022-11-28 07:35 | BI_ITS ---
MAMMOGRAPHY - BILATERAL SCREENING REASON FOR EXAM: Female, 77 years old. Routine annual screening examination. PERTINENT HISTORY: Aunt with breast cancer. TECHNIQUE: Digital bilateral breast moon (3D mammographic acquisition) in the CC and MLO projections. 2-D mediolateral oblique (MLO) and craniocaudad (CC) views of both breasts were obtained. CAD: Full Field Digital Mammography with Computer Added Detection was performed. COMPARISON: Comparison is made with prior study dated November 27, 2021 and November 25, 2020. FINDINGS: Breast Composition: The breasts are extremely dense, which lowers the sensitivity of mammography. There are no dominant masses or suspicious calcifications. No other significant abnormalities are identified. There has been no significant change since the prior study. BI/SCRN MAMM (CAD)W/MOON BILAT IMPRESSION: Stable bilateral screening mammogram. Yearly follow-up mammogram recommended. (A) ASSESSMENT CATEGORY: BIRADS Category 1: Negative. A letter regarding these results will be sent to the patient by the facility within 30 days. Approximately 10% of breast cancers are not detected by mammography. A normal mammogram should not delay biopsy of a clinically suspicious abnormality. [id number] Electronically Signed: Kingsley Clements MD at 9:04 EDT ,
== END | disposition home or self-care (01) ==
LOC: OPBI 07:33
PROVIDERS: PCP Family Medicine; Referring Provider Family Medicine; Visit Provider Family Medicine
DX: Z12.31 Encounter for screening mammogram for malignant neoplasm of breast (principal)
CPT/HCPCS: 77063; 77067

== ENCOUNTER → 2022-11-29 | Outpatient (CLI) | payer MEDICARE, OTHER, SELFPAY ==
--- NOTE | 2022-11-29 11:06 | RAD_ITS ---
INDICATION: Follow-up nonspecific this lung cell carcinoma. EXAMINATION/TECHNIQUE: X-RAY - XR Chest 2 Views COMPARISON: November 08, 2022 chest x-ray. October 15, 2022 CT chest. FINDINGS: LINES/DEVICES: None. LUNGS: Stable abnormal appearance of the right hilum. Interstitial coarsening in both lungs. Stable left pleural effusion and hazy basilar opacity. No pneumothorax. MEDIASTINUM AND CARDIOVASCULAR STRUCTURES: Cardiac silhouette not enlarged. Central airways and mediastinal contour are unremarkable. BONES AND SOFT TISSUES: Cholecystectomy clips. Stable appearance of the osseous structures. RAD/Chest PA and Lateral IMPRESSION: No significant interval change. Electronically Signed: Vlad Garrett MD at 20:14 EDT ,
== END | disposition home or self-care (01) ==
LOC: RAD 10:58
PROVIDERS: PCP Family Medicine; Referring Provider Internal Medicine Medical Oncology; Visit Provider Internal Medicine Medical Oncology
DX: C34.92 Malignant neoplasm of unspecified part of left bronchus or lung (principal); J90 Pleural effusion, not elsewhere classified
CPT/HCPCS: 71046

== ENCOUNTER → 2022-12-25 | Outpatient (CLI) | payer MEDICARE, OTHER, SELFPAY ==
--- NOTE | 2022-12-25 15:41 | RAD_ITS ---
EXAM: XR CHEST, 2 VIEWS CLINICAL INDICATION: exertional dyspnea;pleural effusion;NSCLC TECHNIQUE: Frontal and lateral views of the chest. COMPARISON: 11/29/2022, 11/08/2022, 10/22/2022, and 10/10/2022. CT scan of the chest 10/15/2022. FINDINGS: LUNGS AND PLEURAL SPACES: Stable appearance of the opacity overlying the right hilum which is seen to volume loss in the posterior segment of the right upper lobe. Stable left apical opacity. Stable left pleural effusion. No pneumothorax. HEART: Unremarkable. Cardiac silhouette not enlarged. MEDIASTINUM: Central airways and mediastinal contour are unremarkable. BONES/JOINTS: Unremarkable. SOFT TISSUES: Unremarkable. RAD/Chest PA and Lateral IMPRESSION: 1. Stable appearance of the opacity overlying the right hilum which is seen to volume loss in the posterior segment of the right upper lobe. 2. Stable left apical opacity. 3. Stable left pleural effusion. 4. No specific acute abnormality. Electronically Signed: Paul Thomas MD at 3:17 EDT ,
== END | disposition home or self-care (01) ==
LOC: RAD 15:40
PROVIDERS: PCP Family Medicine; Referring Provider Nurse Practitioner Family; Visit Provider Nurse Practitioner Family
DX: R06.09 Other forms of dyspnea (principal); C34.92 Malignant neoplasm of unspecified part of left bronchus or lung
CPT/HCPCS: 71046

== ENCOUNTER → 2023-01-18 | Outpatient (CLI) | payer MEDICARE, OTHER, SELFPAY ==
--- NOTE | 2023-01-18 07:46 | CT_ITS ---
STUDY: CT CHEST WITH CONTRAST REASON FOR EXAM: Female, 77 years old. MONITOR LUNG CA, BILATERAL WITH HISTORY OF RADIATION ON LEFT AND CHEMO RADIATION DOSAGE (If Supplied By Facility): CTDIvol = ( 11.20 ) mGy, DLP = ( 354.84 ) mGycm TECHNIQUE: Transaxial imaging was performed following intravenous administration of ml of 100mL Isovue-300 contrast material. Individualized dose optimization techniques were used for this CT. COMPARISON: CT of the chest dated October 15, 2022 FINDINGS: Spiculated mass in the medial aspect of the left upper lobe extending to the pleural apical surface currently measures 4.87 x 1.99 cm compared to the prior measurement of 5.32 x 2.43 cm, indicating slight retraction spiculated mass and chronic consolidation in the medial infrahilar region of the right upper lobe measures 3.91 x 3.45 cm on the current study compared to 2.39 x 1.80 cm on the prior exam indicating interval worsening, however the bursal and may be related to posttreatment fibrosis/atelectasis rather than malignancy, this would have to be evaluated with PET CT to determine if there was remaining viable tumor. Triangular focus of chronic fibrosis and consolidation in superior segment and medial aspect of the right lower lobe just distal to the right mainstem bronchus is unchanged from the prior study. Diffuse cystic emphysematous changes and architectural distortion of both lungs and hyperinflation without significant interval change. Redemonstration of a chain of small nodules within the interlobar fissure between the left upper and lower lobes maximally measuring 8.4 mm in diameter compared to the prior maximum diameter of 8.2 mm. These nodules are favored to be postinflammatory in nature rather than a malignant. Mild pleural apical fibrosis and thickening of the right upper lobe is unchanged from the prior study no new masses or metastatic nodules are visualized. Normal heart and pericardium. There are calcifications of the coronary arteries. Redemonstration of a 3.30 cm focus of loculated pleural fluid in the anterior cardiophrenic region of the right middle lobe. The previously seen posterior trace right pleural effusion has resolved. The left pleural effusion has slightly increased in size and is now small to moderate in volume. Normal mediastinum. Normal hilar regions. Normal enhanced pulmonary arteries. There is atherosclerotic calcification of the aortic arch with tortuosity and elongation of the aortic arch and descending thoracic aorta. There are multi-level degenerative changes of the thoracic spine. There is no demonstrated abnormality of the visualized upper abdomen. CT/Chest WITH Contrast IMPRESSION: Correlate with PET/CT to determine if there is a viable malignancy in the areas of consolidation and spiculated masses 1. Spiculated mass in the medial aspect of the left upper lobe extending to the pleural apical surface currently measures 4.87 x 1.99 cm compared to the prior measurement of 5.32 x 2.43 cm, indicating slight retraction spiculated mass and chronic consolidation in the medial infrahilar region of the right upper lobe measures 3.91 x 3.45 cm on the current study compared to 2.39 x 1.80 cm on the prior exam indicating interval worsening, however the bursal and may be related to posttreatment fibrosis/atelectasis rather than malignancy, this would have to be evaluated with PET CT to determine if there was remaining viable tumor. 2. Triangular focus of chronic fibrosis and consolidation in superior segment and medial aspect of the right lower lobe just distal to the right mainstem bronchus is unchanged from the prior study. 3. Diffuse cystic emphysematous changes and architectural distortion of both lungs and hyperinflation without significant interval change. 4. Redemonstration of a chain of small nodules within the interlobar fissure between the left upper and lower lobes maximally measuring 8.4 mm in diameter compared to the prior maximum diameter of 8.2 mm. These nodules are favored to be postinflammatory in nature rather than a malignant. 5. Mild pleural apical fibrosis and thickening of the right upper lobe is unchanged from the prior study no new masses or metastatic nodules are visualized. Electronically Signed: Dustin Jennings MD at 12:39 EDT ,
== END | disposition home or self-care (01) ==
PROVIDERS: PCP Family Medicine; Referring Provider Internal Medicine Medical Oncology; Visit Provider Internal Medicine Medical Oncology
DX: C34.92 Malignant neoplasm of unspecified part of left bronchus or lung (principal)
CPT/HCPCS: 71260

== ENCOUNTER → 2023-03-15 | Outpatient (CLI) | payer MEDICARE, OTHER, SELFPAY ==
--- NOTE | 2023-03-15 08:01 | CT_ITS ---
EXAM: CT CHEST AND ABDOMEN WITH INTRAVENOUS CONTRAST CLINICAL INDICATION: ASSESS LUNG CA. CHEMO AND RADIATION TECHNIQUE: Helically acquired images were obtained of the chest and abdomen with intravenous contrast. This CT exam was performed using one or more of the following dose reduction techniques: automated exposure control, adjustment of the mA and/or kV according to patient size, and/or use of iterative reconstruction technique. CONTRAST: IV 50mL Isovue-370 RADIATION DOSE: CTDIvol = 11.09 mGy, DLP = 334.77 mGy-cm COMPARISON: January 18, 2023. Abdomen and pelvis CT May 28, 2022. FINDINGS: CHEST: LUNGS AND PLEURAL SPACES: Left upper lobe spiculated mass appears very similar to January 18, 2023 with spicules radiating to the pleural margins anteriorly, medially and laterally, overall size and shape are similar, it is roughly 3 cm AP by 2.8 cm transverse and 3.3 cm craniocaudal with some small air bronchograms visible on the coronal images. New loculated or loculated juxtapleural isodense pleural thickening or mass at the right lateral upper lung field, at least 1.6 cm thickness by 4.6 cm AP and over 6.6 cm craniocaudal. This is contiguous with mild increased pleural thickening over the right lung apex. Decreased left pleural effusion but increased pleural thickening and increased loculated and thick-walled appearance of the pleural fluid at the left lung base and encasing the left lower lobe. There is moderate loculated thick-walled fluid, there was previously dependent fluid without peripheral thickening or enhancement. Increased loculated fluid adjacent to the left heart margin, mild increased soft tissue density along the left mediastinal and pleural margin, and increased loculated fluid in the posterior aspect of the right major fissure, it was roughly 7 mm craniocaudal, now 3 cm craniocaudal. At least 3 small peripheral nodules at the left lateral lung best seen on sagittal images, similar to prior exam, likely within pleural or juxtapleural. Increased size of peripheral nodule in the posterior-lateral right upper lung now measuring roughly 0.9 cm x 0.7 cm on axial image #162, it was 0.6 cm x 0.6 cm. Similar appearance of mild pleural-parenchymal scarring at the right lung apex. Mild increased volume loss of the right lung. Left anterior upper lobe nodule at the level of the hilum now measures roughly 2.2 cm x 1.2 cm on axial images, it was 2.4 cm x 1 cm, similar. HEART: Stable benign-appearing right juxtacardiac epicardial cyst incidentally noted. Heart size is normal. No pericardial effusion. MEDIASTINUM: There is similar moderate zone of consolidation inferior-medial to the right hilum, bulky appearance of bilateral hilar with adenopathy or mass, mildly increased in the left infrahilar region. Mild fluid in the superior pericardial recesses. Mild increased soft tissue density in the aortopulmonary window appears similar, suspected adenopathy of roughly 1.7 cm x 2.1 cm, it was 1.7 cm x 1.8 cm. Esophagus is unremarkable. No hiatal hernia. THYROID: Unremarkable. No thyroid lesions. ABDOMEN: LIVER: See below. GALLBLADDER AND BILE DUCTS: Cholecystectomy. No intra- or extrahepatic biliary ductal dilation. PANCREAS: See below. SPLEEN: See below. ADRENALS: Unremarkable adrenals, almost completely included liver, spleen, distal third of the pancreas, the extreme upper poles of the kidneys. KIDNEYS AND URETERS: See above. STOMACH AND BOWEL: Mild stool in the transverse colon. Mild fluid and gas in the right colon. No stomach or bowel distention. No focal inflammatory change. INTRAPERITONEAL SPACE: Unremarkable. No ascites or other fluid collection. No free air. CHEST and ABDOMEN: BONES/JOINTS: Grade 1 anterolisthesis of L4 with respect to L5, L4 pars defects, marked disc space narrowing. The degenerative spine changes are similar to May 28, 2022. No suspicious lytic or blastic abnormality. SOFT TISSUES: See above. VASCULATURE: Peripheral calcification of the aorta, no aneurysm or dissection. Moderate calcification of intra-abdominal aorta, iliac arteries, no aneurysm or dissection. No obvious central pulmonary embolism although this study was not performed with the pulmonary embolism protocol. LYMPH NODES: Small gastrohepatic nodes appear similar to prior exam. OTHER FINDINGS: Increased juxtapleural nodule and mildly thickened left major fissure, best seen on coronal image, this was roughly 0.6 cm x 0.6 cm, now 1.2 cm x 1.4 cm.
== END | disposition home or self-care (01) ==
LOC: CT 08:01
PROVIDERS: PCP Family Medicine; Referring Provider Internal Medicine Medical Oncology; Visit Provider Internal Medicine Medical Oncology
DX: C34.92 Malignant neoplasm of unspecified part of left bronchus or lung (principal)
CPT/HCPCS: 71260; 74160; Q9967

== ENCOUNTER → 2023-04-25 | Outpatient (CLI) | payer MEDICARE, OTHER, SELFPAY ==
--- NOTE | 2023-04-25 07:42 | ECHODONC_ITS ---
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 Myocardial strain analysis was performed in this exam to aid in the assessment of cardiac function. Technically difficult study. Patient has had a drainage tube since January near apical window. Exam performed in department. Left Ventricle Normal LV size. The left ventricular ejection fraction is 50 %. No regional wall motion abnormalities noted. Right Ventricle Normal RV size. Normal systolic function. Atria Normal left atrium. Normal right atrium. Mitral Valve Normal mitral valve. Tricuspid Valve Normal tricuspid valve. Aortic Valve Trisinus/trileaflet aortic valve. Mild focal aortic valve calcification. Pulmonic Valve Normal pulmonic valve. Great Vessels Normal aortic root. The pulmonary artery is normal size. Pericardium/Pleural Small pericardial effusion. MMode/2D Measurements & Calculations LVIDd: 4.2 cm IVSd: 0.87 cm Ao root diam: 3.5 cm LVIDs: 3.2 cm LVPWd: 0.93 cm LA dimension: 2.7 cm RVDd: 3.0 cm FS: 22.9 % LAV(MOD-sp4): 25.5 ml LVAd ap4: 21.9 cm2 SV(MOD-sp4): 27.0 ml LVLd ap4: 6.6 cm EDV(MOD-sp4): 60.4 ml EDV(sp4-el): 61.2 ml LVAs ap4: 14.6 cm2 LVLs ap4: 5.4 cm ESV(MOD-sp4): 33.4 ml ESV(sp4-el): 33.5 ml EF(MOD-sp4): 44.7 % EF(sp4-el): 45.2 % SV(sp4-el): 27.7 ml LA A4 area: 10.5 cm2 RA A4 area: 11.0 cm2 TAPSE: 1.2 cm Time Measurements MV dec time: 0.12 sec Doppler Measurements & Calculations MV E max escobar: 63.5 cm/sec Lat Peak E' Escobar: 6.0 cm/sec Med Peak E' Escobar: 8.0 cm/sec MV A max escobar: 98.9 cm/sec E/E' lat: 10.7 E/E' med: 7.9 MV E/A: 0.64 MV V2 max: 101.4 cm/sec MV dec slope: 521.4 cm/sec2 Ao V2 max: 80.1 cm/sec MV max P.1 mmHg Ao max P.6 mmHg MV V2 mean: 58.4 cm/sec MV mean P.6 mmHg MV V2 VTI: 15.9 cm LV V1 max: 62.7 cm/sec PA V2 max: 53.4 cm/sec LV V1 max P.6 mmHg ECHO/ONC Echo Complete Interpretation Summary Normal LV size. The left ventricular ejection fraction is 50 %. No regional wall motion abnormalities noted. Small pericardial effusion. The global longitudinal strain is mildly abnormal. The global longitudinal stra in = -15.1% (abnormal). The global longitudinal strain has improved. Ordering Physician: Ashlyn Emanuel Referring Physician: Ashlyn Emanuel Performed By: Rojas Gonzales RCS
--- NOTE | 2023-04-25 07:42 | EKG12_ITS ---
Test Reason : MEDICATION Blood Pressure : / mmHG Vent. Rate : 099 BPM Atrial Rate : 099 BPM P-R Int : 142 ms QRS Dur : 078 ms QT Int : 358 ms P-R-T Axes : 072 070 074 degrees QTc Int : 459 ms Normal sinus rhythm Normal ECG Confirmed by BUTCH GREWAL, SHELBY ([id number]), news editor SHAHRZAD YOUNG ([id number]) on 04/29/2023 2:05:16 PM Referred By: Ashlyn Emanuel Confirmed By:SHELBY RAE MD
== END | disposition home or self-care (01) ==
LOC: PSN 07:42
PROVIDERS: PCP Family Medicine; Referring Provider Nurse Practitioner Family; Visit Provider Nurse Practitioner Family
DX: R07.9 Chest pain, unspecified (principal); C34.92 Malignant neoplasm of unspecified part of left bronchus or lung; Z51.81 Encounter for therapeutic drug level monitoring; Z79.899 Other long term (current) drug therapy
CPT/HCPCS: 93005; 93306; 93356

== ENCOUNTER → 2023-06-14 | Outpatient (CLI) | payer MEDICARE, OTHER, SELFPAY ==
--- NOTE | 2023-06-14 07:04 | CT_ITS ---
STUDY: CT CHEST T ABDOMEN WITH CONTRAST REASON FOR EXAM: Female, 77 years old. Known lung CVA RADIATION DOSAGE (If Supplied By Facility): CTDIvol = ( 7.27 ) mGy, DLP = ( 326.74 ) mGycm TECHNIQUE: Transaxial imaging was performed following intravenous administration of IV 100mL Isovue-[id number]. Multiplanar coronal and sagittal images were reformatted. Individualized dose optimization techniques were used for this CT. COMPARISON: 03/15/2023 FINDINGS: CHEST Lung windows show underlying emphysema with scattered bleb formation throughout both lung [place]. There is a stable spiculated mass in the left upper lobe attached to both the anterior and medial pleura again measuring approximately 2.90 x 2.11 x 3 cm. Previously noted spiculated nodule in the right upper lobe is also unchanged since the previous study. Previously noted atelectatic changes in the medial aspect of the right lung field and become more organized since the previous study and are likely sequela from previous radiation therapy. Previously noted pleural thickening throughout the right hemithorax has decreased since the previous study. There is stable pleural thickening in both hemithoraces improved since the previous study and a previously noted loculated effusion in the left lung base has decreased in size since the previous study likely due to the presence of a drainage tube. There are stable noncalcified nodules in the left lung field measuring up to 2.2 cm along the fissure. There is however a new suspicious enhancing nodule in the medial aspect of the left lower lobe on axial image 80 measuring 1.33 cm which may be a metastasis. Thyroid gland is unremarkable. There are scattered subcentimeter in short axis dimension axillary lymph nodes. No new suspicious mediastinal or perihilar lymph nodes. In the right pericardial fat there is a stable suspicious soft tissue mass measuring 3.24 cm. Heart size is normal without calcified coronary vessels or effusion. Normal unenhanced pulmonary arteries. Normal aorta arch and descending thoracic aorta. There are multi-level degenerative changes of the thoracic spine. ABDOMEN Normal liver. There are surgical clips in the gallbladder fossa consistent with a prior cholecystectomy. Normal spleen. Normal pancreas. Normal bilateral adrenal glands. Normal right kidney. Normal left kidney. Normal visualized stomach. Normal small intestine. Normal colon. There is non-visualization of the appendix. There is diffuse atherosclerotic calcification of the abdominal aorta, without a demonstrated aneurysm. Normal inferior vena cava. Normal retroperitoneum. Normal abdominal wall. There are diffuse degenerative changes of the visualized lumbar spine, and pelvis. CT/CT Chest AND Abd W/ Contrast IMPRESSION: Underlying emphysema with stable suspicious spiculated masses in both upper lobes, stable noncalcified nodules in the left lung field, particularly along the fissure, and a smaller loculated left pleural effusion since the previous study. These are all suspicious for pulmonary metastasis. More organized area of atelectatic changes along the medial aspect of the right lung likely due to previous radiation therapy. New suspicious enhancing nodule in the medial aspect of the left lower lobe concerning for metastasis. No new suspicious axillary, mediastinal, or perihilar mass or adenopathy Stable suspicious soft tissue density in the right pericardial fat likely a large lymph node, and likely metastasis Drainage tube within the left pleural effusion free of complication No new suspicious solid organ abnormality Extensive degenerative bony changes Electronically Signed: Jose Rafael Wilson MD at 17:10 EST ,
[2023-06-14 07:11] LABS: Absolute Lymphocyte Count 0.56 X10^3/uL (0.83-4.51); Absolute Neutrophil Count 5.6 X10^3/uL (2.0-7.7); Basophil# 0.06 X10^3/uL; Basophil% 0.9 % (0-1); Eosinophil# 0.07 X10^3/uL; Hematocrit 36.7 % (37-47); Hemoglobin 11.1 g/dL (12.0-15.0); Lymphocyte # 0.56 X10^3/ul (0.83-4.51); Lymphocyte % 8.1 % (19-41); Mean Corp Hgb Conc 30.2 g/dL (32-36); Mean Corpuscular Hgb 27.1 pg (27.0-32.0); Mean Corpuscular Volume 89.5 fL (81-99); Mean Platelet Vol. 10.4 fl (6.2-12.0); Monocyte# 0.65 X10^3/uL; Monocyte% 9.4 % (0-10); NRBC Flagged by Analyzer 0 % (0-5); Neutrophil # 5.55 X10^3/uL (2.7-7.7); Neutrophil % 80.3 % (47-70); POSITIVE DIFFERENTIAL YES; Platelet Count 207 K/mm3 (150-450); RBC Distribution Width CV 14.4 % (11.6-14.6); RBC Distribution Width SD 47.3 fl (35.1-43.9); White Blood Count 6.9 K/mm3 (4.4-11.0)
[2023-06-14 07:23] LABS: Differential Indicated SCAN CRITERIA MET
[2023-06-14 07:36] LABS: ALB/GLOB Ratio 0.8 RATIO (0.9-2.4); AST(SGOT) 19 U/L (15-37); Alanine Aminotransfer ALT/SGPT 13 U/L (13-56); Albumin, Serum 3.2 g/dL (3.2-5.0); Alkaline Phosphatase 81 U/L (45-117); Anion Gap 5 (5-15); BUN 14 mg/dL (7-18); BUN/Creat Ratio 12.5 RATIO (10-20); Calcium,Total 9.1 mg/dL (8.5-10.1); Chloride 110 mmol/L (98-107); Creatinine, Serum 1.12 mg/dL (0.55-1.02); EST Glomerular Filtration Rate 50 mL/min (>60); Est Glom Filt Rate - Afr Amer 61 mL/min (>60); Globulin 3.8 g/dL (2.2-4.2); Glucose 116 mg/dL (74-106); LDH 199 U/L (84-246); Potassium 3.9 mmol/L (3.5-5.1); Sodium Level 140 mmol/L (136-145)
== END | disposition home or self-care (01) ==
PROVIDERS: PCP Family Medicine; Referring Provider Internal Medicine Medical Oncology; Visit Provider Internal Medicine Medical Oncology
DX: C34.92 Malignant neoplasm of unspecified part of left bronchus or lung (principal); R07.9 Chest pain, unspecified
CPT/HCPCS: 36415; 71260; 74160; 80053; 83615; 85025; Q9967

== ENCOUNTER → 2023-08-12 | Outpatient (CLI) | payer MEDICARE, OTHER, SELFPAY ==
--- OUTSIDE RECORDS SUMMARY | 2023-08-12 06:57 | XMS RPT_ITS | CCD ---
Author Name Unknown Address [address] [place] [address] Organization [facility] Care Team Providers Care Tracer Lathe Set Up Operator Name Role Phone Chikis Bentley Unavailable Vlad Dennis MD Primary Care Provider 1( [phone] Rc Lauretn Unavailable Paul Woods MD Unavailable Chikis Bentley Unavailable Vlad Dennis MD Primary Care Provider Paul Woods MD Unavailable Timmy Hartmann MD Unavailable VLAD DENNIS Primary Care Unavailable MARYJANE, SUDISH Attending Unavailable CHIKIS JANE Referring Unavailable Fabian, Aquiles S Unavailable Fabian, Lettsworth S Unavailable VLAD DENNIS Primary Care Unavailable NICOLE GUZMÁN Admitting Unavailable LITO VILA Attending Unavailable Fabian GREWAL Aquiles S Unavailable Devang Magallanes RN Unavailable Rc Laurent Unavailable MARYJANE, SUDISH Referring Unavailable VLAD DENNIS Primary Care Unavailable MARYJANE, SUDISH Referring Unavailable VLAD DENNIS Primary Care Unavailable MARYJANE, SUDISH Attending Unavailable MARYJANE, SUDISH Admitting Unavailable VLAD DENNIS Primary Care Unavailable VLAD DENNIS Primary Care Unavailable MARYJANE, SUDISH Referring Unavailable MARYJANE, SUDISH Attending Unavailable VLAD DENNIS Primary Care Unavailable MARYJANE, SUDISH Attending Unavailable MARYJANE, SUDISH Admitting Unavailable VLAD DENNIS Primary Care Unavailable MARYJANE, SUDISH Referring Unavailable DENNIS, VLAD R Primary Care Unavailable MARYJANE, SUDISH Referring Unavailable DENNIS, VLAD R Primary Care Unavailable WESAVANNAH LOZADA Attending Unavailable DENNIS, VLAD R Primary Care Unavailable DENNIS, VLAD R Primary Care Unavailable WEGASSAVANNAH Referring Unavailable DENNIS, VLAD R Primary Care Unavailable WEKIERRA, SAVANNAH Attending Unavailable MARYJANE, SUDISH Referring Unavailable DENNIS, VLAD R Primary Care Unavailable MARYJANE, SUDISH Referring Unavailable DENNIS, VLAD R Primary Care Unavailable DENNIS, VLAD R Primary Care Unavailable FLORENTINO JAMESON Attending Unavailable WEGAS, SAVANNAH Referring Unavailable SHEYMATTI PENA Attending Unavailable DENNIS, VLAD R Primary Care Unavailable WEGAArline, SAVANNAH Referring Unavailable DENNIS, VLAD R Primary Care Unavailable WEKIERRA, ASVANNAH Referring Unavailable DENNIS, VLAD R Primary Care Unavailable WEKIERRA, SAVANNAH Attending Unavailable DENNIS, VLAD R Primary Care Unavailable WEGAS, SAVANNAH Referring Unavailable WEGAArline, SAVANNAH Attending Unavailable DENNIS, VLAD R Primary Care Unavailable DENNIS, VLAD R Primary Care Unavailable WEKIERRA, SAVANNAH Referring Unavailable MARYJANE, SUDISH Referring Unavailable DENNIS, VLAD R Primary Care Unavailable WEGAS, SAVANNAH Attending Unavailable WEGAS, SAVANNAH Referring Unavailable WEGAS, SAVANNAH Attending Unavailable DENNIS, VLAD R Primary Care Unavailable SHEY, MATTI Nunn Attending Unavailable FLORENTINO JAMESON Referring Unavailable DENNIS, VLAD R Primary Care Unavailable WEGAS, SAVANNAH Referring Unavailable DENNIS, VLAD R Primary Care Unavailable WEGAS, SAVANNAH Attending Unavailable DENNIS, VLAD R Primary Care Unavailable DENNIS, VLAD R Primary Care Unavailable WEKIERRA, SAVANNAH Referring Unavailable DENNIS, VLAD R Primary Care Unavailable WESAVANNAH LOZADA Attending Unavailable MARYJANE, SUDISH Referring Unavailable DENNIS, VLAD R Primary Care Unavailable MARYJANE, SUDISH Referring Unavailable DENNIS, VLAD R Primary Care Unavailable MARYJANE, SUDISH Referring Unavailable DENNIS, VLAD R Primary Care Unavailable MARYJANE, SUDISH Referring Unavailable DENNIS, VLAD R Primary Care Unavailable MARYJANE, SUDISH Referring Unavailable DENNIS, VLAD R Primary Care Unavailable Allergies Allergy Classification Reported Allergen(s) Allergy Type Date of Onset Reaction(s) Facility (20 sources) Albuterol / Ipratropium; Translations: [IPRATROPIUM-AL BUTEROL] Drug Allergy 6 [facility] (20 sources) Lactose; Translations: [LACTOSE] Drug Allergy 2 Other: See Comments [facility] (20 sources) terbinafine; Translations: [TERBINAFINE HCL] Drug Allergy 5 Rash, Intolerance [facility] Work Phone: (20 sources) Adhesive Tape; Translations: [ADHESIVE TAPE (ROSINS)] Propensity to adverse reactions to substance 3 Itching [facility] Medications Current Medications Medication Drug Class(es) Dates Sig (Normalized) Sig (Original) esomeprazole 20 mg delayed release oral capsule (20 sources) Proton Pump Inhibitor Start: 02-14-2023 End: 02-09-2024 take 2 capsules by mouth twice daily before mealtime esomeprazole (NEXIUM) 20 mg capsule Take 2 capsules by mouth twice daily before meals. 360 capsule 3 02/14/2023 02/09/2024 Active Completed/Discontinued Medications Medication Drug Class(es) Dates Sig (Normalized) Sig (Original) acetaminophen 325 mg oral tablet (20 sources) Start: 10-17-2015 take 2 tablets by mouth every six hours as needed acetaminophen (TYLENOL) 325 mg tablet Take 2 tablets by mouth every 6 hours as needed for Pain or Fever. 0 10/17/2015 Active Problems Active Problems Problem Classification Problem Date Documented Da te Episodic/Chronic Cancer of bronchus; lung (20 sources) Malignant neoplasm of unspecified part of right bronchus or lung; Translations: [Malignant neoplasm of bronchus and lung, unspecified] Onset: 02-06-2023 Chronic Cardiac dysrhythmias (1 source) Tachycardia, unspecified; Translations: [Tachycardia] Onset: 02-06-2023 Episodic Chronic obstructive pulmonary disease and bronchiectasis (20 sources) Acute exacerbation of chronic obstructive airways disease; Translations: [Chronic obstructive pulmonary disease with (acute) exacerbation] Onset: 01-21-2023 01-21-2023 Chronic Essential hypertension (20 sources) Hypertensive disorder; Translations: [Essential (primary) hypertension] Onset: 02-01-2023 02-06-2023 Chronic Other aftercare (1 source) Surgical follow-up; Translations: [Encounter for follow-up examination after completed treatment for conditions other than malignant neoplasm] 02-07-2023 Episodic Other inflammatory condition of skin (20 sources) Psoriasis; Translations: [Psoriasis, unspecified] Onset: 08-06-2014 10-15-2015 Chronic Other upper respiratory disease (2 sources) Vocal cord paralysis; 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, unilateral] 04-03-2023 Chronic Other upper respiratory disease (4 sources) Hoarse; Translations: [Dysphonia] 02-14-2023 Episodic Regional enteritis and ulcerative colitis (20 sources) Ulcerative colitis; Translations: [Ulcerative colitis, unspecified, without complications] Onset: 08-06-2014 07-10-2021 Chronic Screening and history of mental health and substance abuse codes (1 source) Tobacco use and exposure - finding; Translations: [Personal history of nicotine dependence] 05-28-2023 Episodic Secondary malignancies (20 sources) Malignant pleural effusion; Translations: [Malignant pleural effusion] Onset: 02-01-2023 02-07-2023 Chronic Unclassified (20 sources) DISPOSITION AND FOLLOW-UP Onset: 10-14-2015 07-10-2021 Past or Other Problems Problem Classification Problem Date Documented Date Episodic/Chronic Administrative/social admission (20 sources) Discharge status; Translations: [Encounter for administrative examinations, unspecified] Onset: 02-01-2023 02-03-2023 Episodic Cancer of bronchus; lung (20 sources) History of malignant neoplasm of thoracic cavity structure; Translations: [Personal history of other malignant neoplasm of bronchus and lung] Onset: 03-29-2016 03-29-2016 Episodic Other aftercare (1 source) Encounter for follow-up examination after completed treatment for conditions other than malignant neoplasm; Translations: [Follow-up examination following surgery] Onset: 02-07-2023 Episodic Other lower respiratory disease (20 sources) Lung mass; Translations: [Other nonspecific abnormal finding of lung field] Onset: 08-06-2014 08-06-2014 Episodic Other lower respiratory disease (20 sources) Dyspnea; Translations: [Shortness of breath] Onset: 02-06-2023 Episodic Other lower respiratory disease (2 sources) Shortness of breath; Translations: [Shortness of breath] Onset: 02-01-2023 Episodic Other nervous system disorders (20 sources) Acute postoperative pain; Translations: [Other acute postprocedural pain] Onset: 10-14-2015 07-10-2021 Episodic Other nervous system disorders (1 source) Other acute postprocedural pain; Translations: [Pain, postoperative, acute] Onset: 02-03-2023 Episodic Other upper respiratory disease (1 source) Dysphonia; Translations: [Hoarseness] Onset: 04-03-2023 Episodic Pleurisy; pneumothorax; pulmonary collapse (20 sources) Pleural effusion; Translations: [Pleural effusion, not elsewhere classified] Onset: 10-14-2015 07-10-2021 Episodic Residual codes; unclassified (20 sources) Device in situ; Translations: [Other specified health status] Onset: 10-14-2015 07-10-2021 Episodic Results Test Name Value Interpretation Reference Range Facil ity Vital Signs Date Time Vital Sign Value Performing Clinician Faci lity 07-02-2023 10:52-0500 Body temperature 97.3 [degF] Anabela Most RN Work Phone: [facility] 07-02-2023 10:52-0500 Diastolic blood pressure 78 mm[Hg] Anabela Most RN Work Phone: [facility] 07-02-2023 10:52-0500 Heart rate 100 /min Anabela Most RN Work Phone: [facility] 07-02-2023 10:52-0500 Respiratory rate 22 /min Anabela Most RN Work Phone: [facility] 07-02-2023 10:52-0500 SaO2% (BldA) [Mass fraction] 99 % Anabela Most RN Work Phone: [facility] 07-02-2023 10:52-0500 Systolic blood pressure 138 mm[Hg] Anabela Most RN Work Phone: [facility] 06-28-2023 10:58-0500 Body temperature 97.5 [degF] Anabela Most RN Work Phone: [facility] 06-28-2023 10:58-0500 Diastolic blood pressure 86 mm[Hg] Anabela Most RN Work Phone: [facility] 06-28-2023 10:58-0500 Heart rate 100 /min Anabela Most RN Work Phone: [facility] 06-28-2023 10:58-0500 Respiratory rate 16 /min Anabela Most RN Work Phone: [facility] 06-28-2023 10:58-0500 SaO2% (BldA) [Mass fraction] 99 % Anabela Most RN Work Phone: [facility] 06-28-2023 10:58-0500 Systolic blood pressure 138 mm[Hg] Anabela Most RN Work Phone: [facility] 06-21-2023 10:55-0500 Body temperature 97 [degF] Anabela Most RN Work Phone: [facility] 06-21-2023 10:55-0500 Diastolic blood pressure 82 mm[Hg] Anabela Most RN Work Phone: [facility] 06-21-2023 10:55-0500 Heart rate 100 /min Anabela Most RN Work Phone: [facility] 06-21-2023 10:55-0500 Respiratory rate 20 /min Anabela Most RN Work Phone: [facility] 06-21-2023 10:55-0500 SaO2% (BldA) [Mass fraction] 98 % Anabela Most RN Work Phone: [facility] 06-21-2023 10:55-0500 Systolic blood pressure 130 mm[Hg] Anabela Most RN Work Phone: [facility] 06-18-2023 11:24-0500 Body temperature 97.7 [degF] Anabela Most RN Work Phone: [facility] 06-18-2023 11:24-0500 Diastolic blood pressure 80 mm[Hg] Anabela Most RN Work Phone: [facility] 06-18-2023 11:24-0500 Heart rate 104 /min Anabela Most RN Work Phone: [facility] 06-18-2023 11:24-0500 Respiratory rate 16 /min Anabela Most RN Work Phone: [facility] 06-18-2023 11:24-0500 SaO2% (BldA) [Mass fraction] 99 % Anabela Flanagan RN Work Phone: [facility] 06-18-2023 11:24-0500 Systolic blood pressure 132 mm[Hg] Anabela Flanagan RN Work Phone: [facility] 06-04-2023 13:58-0500 Body temperature 98.29 [degF] Carina Florian RN Work Phone: [facility] 06-04-2023 13:58-0500 Diastolic blood pressure 60 mm[Hg] Carina Florian RN Work Phone: [facility] 06-04-2023 13:58-0500 Heart rate 70 /min Carina Florian RN Work Phone: [facility] 06-04-2023 13:58-0500 Respiratory rate 18 /min Carina Florian RN Work Phone: [facility] 06-04-2023 13:58-0500 SaO2% (BldA) [Mass fraction] 97 % Carina Florian RN Work Phone: [facility] 06-04-2023 13:58-0500 Systolic blood pressure 118 mm[Hg] Carina Florian RN Work Phone: [facility] 05-30-2023 14:14-0500 Body temperature 98.4 [degF] Chastity Salamanca RN Work Phone: [facility] 05-30-2023 14:14-0500 Diastolic blood pressure 82 mm[Hg] Chastity Salamanca RN Work Phone: [facility] 05-30-2023 14:14-0500 Heart rate 102 /min Chastity Salamanca RN Work Phone: [facility] 05-30-2023 14:14-0500 Respiratory rate 16 /min Chastity Salamanca RN Work Phone: [facility] 05-30-2023 14:14-0500 SaO2% (BldA) [Mass fraction] 96 % Chastity Salamanca RN Work Phone: [facility] 05-30-2023 14:14-0500 Systolic blood pressure 136 mm[Hg] Chastity Bisbee RN Work Phone: [facility] 05-27-2023 10:41-0500 Body temperature 97.5 [degF] Diann Prado RN Work Phone: [facility] 05-27-2023 10:41-0500 Diastolic blood pressure 80 mm[Hg] Diann Prado RN Work Phone: [facility] 05-27-2023 10:41-0500 Heart rate 96 /min Diann Prado RN Work Phone: [facility] 05-27-2023 10:41-0500 Respiratory rate 18 /min Diann Prado RN Work Phone: [facility] 05-27-2023 10:41-0500 SaO2% (BldA) [Mass fraction] 97 % Diann Prado RN Work Phone: [facility] 05-27-2023 10:41-0500 Systolic blood pressure 122 mm[Hg] Diann Prado RN Work Phone: [facility] 05-20-2023 11:05-0500 Diastolic blood pressure 78 mm[Hg] Anabela Flanagan RN Work Phone: [facility] 05-20-2023 11:05-0500 Systolic blood pressure 118 mm[Hg] Anabela Flanagan RN Work Phone: [facility] 05-20-2023 10:57-0500 Body temperature 97.7 [degF] Anabela Flanagan RN Work Phone: [facility] 05-20-2023 10:57-0500 Heart rate 96 /min Anabela Flanagan RN Work Phone: [facility] 05-20-2023 10:57-0500 Respiratory rate 16 /min Anabela Flanagan RN Work Phone: [facility] 05-20-2023 10:57-0500 SaO2% (BldA) [Mass fraction] 99 % Anabela Flanagan RN Work Phone: [facility] 05-17-2023 11:12-0400 Body temperature 97.3 [degF] Anabela Flanagan RN Work Phone: [facility] 05-17-2023 11:12-0400 Diastolic blood pressure 80 mm[Hg] Anabela Flanagan RN Work Phone: [facility] 05-17-2023 11:12-0400 Heart rate 92 /min Anabela Flanagan RN Work Phone: [facility] 05-17-2023 11:12-0400 Respiratory rate 20 /min Anabela Flanagan RN Work Phone: [facility] 05-17-2023 11:12-0400 SaO2% (BldA) [Mass fraction] 95 % Anabela Flanagan RN Work Phone: [facility] 05-17-2023 11:12-0400 Systolic blood pressure 122 mm[Hg] Anabela Flanagan RN Work Phone: [facility] 05-10-2023 14:36-0400 Body temperature 98.6 [degF] Chastity Salamanca RN Work Phone: [facility] 05-10-2023 14:36-0400 Diastolic blood pressure 80 mm[Hg] Chastity Salamanca RN Work Phone: [facility] 05-10-2023 14:36-0400 Heart rate 99 /min Chastity Salamanca RN Work Phone: [facility] 05-10-2023 14:36-0400 Respiratory rate 16 /min Chastity Salamanca RN Work Phone: [facility] 05-10-2023 14:36-0400 SaO2% (BldA) [Mass fraction] 96 % Chastity Salamanca RN Work Phone: [facility] 05-10-2023 14:36-0400 Systolic blood pressure 140 mm[Hg] Chastity Salamanca RN Work Phone: [facility] 05-06-2023 17:02-0400 Body temperature 97.11 [degF] Anabela Most RN Work Phone: [facility] 05-06-2023 17:02-0400 Diastolic blood pressure 88 mm[Hg] Anabela Most RN Work Phone: [facility] 05-06-2023 17:02-0400 Heart rate 108 /min Anabela Most RN Work Phone: [facility] 05-06-2023 17:02-0400 Respiratory rate 22 /min Anabela Most RN Work Phone: [facility] 05-06-2023 17:02-0400 SaO2% (BldA) [Mass fraction] 96 % Anabela Most RN Work Phone: [facility] 05-06-2023 17:02-0400 Systolic blood pressure 142 mm[Hg] Anabela Most RN Work Phone: [facility] 05-02-2023 10:55-0400 Body temperature 97.9 [degF] Emma Bravo RN Work Phone: [facility] 05-02-2023 10:55-0400 Diastolic blood pressure 66 mm[Hg] Emma Bravo RN Work Phone: [facility] 05-02-2023 10:55-0400 Heart rate 104 /min Emma Bravo RN Work Phone: [facility] 05-02-2023 10:55-0400 Respiratory rate 22 /min Emma Bravo RN Work Phone: [facility] 05-02-2023 10:55-0400 SaO2% (BldA) [Mass fraction] 95 % Emma Bravo RN Work Phone: [facility] 05-02-2023 10:55-0400 Systolic blood pressure 112 mm[Hg] Emma Bravo RN Work Phone: [facility] 04-29-2023 15:32-0400 Heart rate 99 /min Tianna Hein RN Work Phone: [facility] 04-29-2023 15:32-0400 Respiratory rate 16 /min Tiannafrances Salazarber RN Work Phone: [facility] 04-29-2023 15:32-0400 SaO2% (BldA) [Mass fraction] 94 % Tianna Hein RN Work Phone: [facility] 04-29-2023 15:15-0400 Body temperature 98.8 [degF] Tiannafrances Salazarber RN Work Phone: [facility] 04-29-2023 15:15-0400 Diastolic blood pressure 82 mm[Hg] Tiannafrances Salazarber RN Work Phone: [facility] 04-29-2023 15:15-0400 Systolic blood pressure 144 mm[Hg] Tiannafrances Salazarber RN Work Phone: [facility] 04-23-2023 13:11-0400 Body temperature 98.29 [degF] Anabela Flanagan RN Work Phone: [facility] 04-23-2023 13:11-0400 Diastolic blood pressure 88 mm[Hg] Anabela Flanagan RN Work Phone: [facility] 04-23-2023 13:11-0400 Heart rate 104 /min Anabela Flanagan RN Work Phone: [facility] 04-23-2023 13:11-0400 Respiratory rate 20 /min Anabela Flanagan RN Work Phone: [facility] 04-23-2023 13:11-0400 SaO2% (BldA) [Mass fraction] 96 % Anabela Flanagan RN Work Phone: [facility] 04-23-2023 13:11-0400 Systolic blood pressure 144 mm[Hg] Anabela Flanagan RN Work Phone: [facility] 04-21-2023 11:08-0400 Body temperature 97.11 [degF] Sonali Peña RN Work Phone: [facility] 04-21-2023 11:08-0400 Diastolic blood pressure 68 mm[Hg] Sonali Peña RN Work Phone: [facility] 04-21-2023 11:08-0400 Heart rate 98 /min Sonali Erdos RN Work Phone: [facility] 04-21-2023 11:08-0400 Respiratory rate 18 /min Sonali Erdos RN Work Phone: [facility] 04-21-2023 11:08-0400 SaO2% (BldA) [Mass fraction] 95 % Sonali Erdos RN Work Phone: [facility] 04-21-2023 11:08-0400 Systolic blood pressure 104 mm[Hg] Sonali Boos RN Work Phone: [facility] 04-19-2023 12:31-0400 Body temperature 97.9 [degF] Anabela Most RN Work Phone: [facility] 04-19-2023 12:31-0400 Diastolic blood pressure 82 mm[Hg] Anabela Most RN Work Phone: [facility] 04-19-2023 12:31-0400 Heart rate 104 /min Anabela Most RN Work Phone: [facility] 04-19-2023 12:31-0400 Respiratory rate 16 /min Anabela Most RN Work Phone: [facility] 04-19-2023 12:31-0400 SaO2% (BldA) [Mass fraction] 94 % Anabela Most RN Work Phone: [facility] 04-19-2023 12:31-0400 Systolic blood pressure 146 mm[Hg] Anabela Most RN Work Phone: [facility] 04-17-2023 12:16-0400 Body temperature 97.7 [degF] Anabela Most RN Work Phone: [facility] 04-17-2023 12:16-0400 Diastolic blood pressure 76 mm[Hg] Anabela Most RN Work Phone: [facility] 04-17-2023 12:16-0400 Heart rate 100 /min Anabela Flanagan RN Work Phone: [facility] 04-17-2023 12:16-0400 Respiratory rate 22 /min Anabelaarun Flanagan RN Work Phone: [facility] 04-17-2023 12:16-0400 SaO2% (BldA) [Mass fraction] 95 % Anabelaarun Flanagan RN Work Phone: [facility] 04-17-2023 12:16-0400 Systolic blood pressure 132 mm[Hg] Anabelaarun Flanagan RN Work Phone: [facility] 02-14-2023 08:56-0400 Body height 156.2 cm Savannah Lechuga SUPERVISOR [employer] Work Phone: [facility] 02-14-2023 08:56-0400 Body temperature 98.4 [degF] Savannah Lechuga SUPERVISOR [employer] TE[employer] Work Phone: [facility] 02-14-2023 08:56-0400 Body weight 60.33 kg Savannah Lechuga SUPERVISOR [employer] TE[employer] Work Phone: [facility] 02-14-2023 08:56-0400 Diastolic blood pressure 70 mm[Hg] Savannah Lechuga SUPERVISOR [employer] TE[employer] Work Phone: [facility] 02-14-2023 08:56-0400 Heart rate 98 /min Savannah Lechuga SUPERVISOR W[employer] TE[employer] Work Phone: [facility] 02-14-2023 08:56-0400 Respiratory rate 14 /min Savannah Lechuga SUPERVISOR [employer] TE[employer] Work Phone: [facility] 02-14-2023 08:56-0400 SaO2% (BldA) [Mass fraction] 94 % Savannah Lechuga SUPERVISOR [employer] TE[employer] Work Phone: [facility] 02-14-2023 08:56-0400 Systolic blood pressure 109 mm[Hg] Savannah Lechuga SUPERVISOR [employer] TE[employer] Work Phone: [facility] 02-07-2023 15:19-0400 Body height 156.2 cm Savannah Lechuga SUPERVISOR [employer] TE[employer] Work Phone: [facility] 02-07-2023 15:19-0400 Body temperature 97.5 [degF] Savannah Lechuga SUPERVISOR [employer] TE[employer] Work Phone: [facility] 02-07-2023 15:19-0400 Body weight 60.33 kg Savannah Lechuga SUPERVISOR [employer] TE[employer] Work Phone: [facility] 02-07-2023 15:19-0400 Diastolic blood pressure 80 mm[Hg] Savannah Beys SUPERVISOR [employer] TE[employer] Work Phone: [facility] 02-07-2023 15:19-0400 Heart rate 115 /min Savannah Lechuga SUPERVISOR [employer] TE[employer] Work Phone: [facility] 02-07-2023 15:19-0400 Respiratory rate 14 /min Savannah Lechuga SUPERVISOR [employer] TE[employer] Work Phone: [facility] 02-07-2023 15:19-0400 SaO2% (BldA) [Mass fraction] 97 % Savannah Lechuga SUPERVISOR [employer] TE[employer] Work Phone: [facility] 02-07-2023 15:19-0400 Systolic blood pressure 120 mm[Hg] Savannah Lechuga SUPERVISOR [employer] Work Phone: [facility] 01-21-2023 13:24-0400 Body height 156.2 cm Sharda Wesley MD, PhD Work Phone: [facility] 01-21-2023 13:24-0400 Body temperature 97.7 [degF] Sharda Wesley MD, PhD Work Phone: [facility] 01-21-2023 13:24-0400 Body weight 60.33 kg Sharda Wesley MD, PhD Work Phone: [facility] 01-21-2023 13:24-0400 Diastolic blood pressure 94 mm[Hg] Sharda Wesley MD, PhD Work Phone: [facility] 01-21-2023 13:24-0400 Heart rate 98 /min Sharda Wesley MD, PhD Work Phone: [facility] 01-21-2023 13:24-0400 Respiratory rate 14 /min Sharda Wesley MD, PhD Work Phone: [facility] 01-21-2023 13:24-0400 SaO2% (BldA) [Mass fraction] 97 % Sharda Wesley MD, PhD Work Phone: [facility] 01-21-2023 13:24-0400 Systolic blood pressure 154 mm[Hg] Sharda Wesley MD, PhD Work Phone: [facility] 12-18-2022 11:55-0400 Body height 156.2 cm Sharda Wesley MD, PhD Work Phone: [facility] 12-18-2022 11:55-0400 Body temperature 97.39 [degF] Sahrda Wesley MD, PhD Work Phone: [facility] 12-18-2022 11:55-0400 Body weight 60.65 kg Sharda Wesley MD, PhD Work Phone: [facility] 12-18-2022 11:55-0400 Diastolic blood pressure 70 mm[Hg] Sharda Wesley MD, PhD Work Phone: [facility] 12-18-2022 11:55-0400 Heart rate 99 /min Sharda Wesley MD, PhD Work Phone: [facility] 12-18-2022 11:55-0400 Respiratory rate 28 /min Sharda Wesley MD, PhD Work Phone: [facility] 12-18-2022 11:55-0400 SaO2% (BldA) [Mass fraction] 99 % Sharda Wesley MD, PhD Work Phone: [facility] 12-18-2022 11:55-0400 Systolic blood pressure 104 mm[Hg] Sharda Wesley MD, PhD Work Phone: [facility] 06-14-2022 10:03-0500 Body height 157.5 cm Destin Lemons MD Work Phone: [facility] 06-14-2022 10:03-0500 Body temperature 97.7 [degF] Destin Lemons MD Work Phone: [facility] 06-14-2022 10:03-0500 Body weight 61 kg Destin Lemons MD Work Phone: [facility] 06-14-2022 10:03-0500 Diastolic blood pressure 70 mm[Hg] Destin Lemons MD Work Phone: [facility] 06-14-2022 10:03-0500 Heart rate 96 /min Destin Lemons MD Work Phone: [facility] 06-14-2022 10:03-0500 Respiratory rate 18 /min Destin Lemons MD Work Phone: [facility] 06-14-2022 10:03-0500 SaO2% (BldA) [Mass fraction] 95 % Destin Lemons MD Work Phone: [facility] 06-14-2022 10:03-0500 Systolic blood pressure 128 mm[Hg] Destin Lemons MD Work Phone: [facility] Encounters Encounter Date Encounter Type Care Provider Facility Start: 07-19-2023 End: 07-19-2023 [facility] Start: 07-18-2023 End: 07-18-[address] [facility] Facility:[facility] Start: 07-16-2023 End: 07-19-2023 ambulatory MATTI SIMEON Facility:[facility] Start: 07-02-2023 End: 07-02-2023 Home visit Anabela Flanagan RN Work Phone: [facility] Procedures Date Procedure Procedure Detail Performing Clinician Start: 05-13-2023 Radiologic exam ches t 2 views Savannah Lechuga APRN.ETIQUETTE TEACHER Work Phone: Start: 04-16-2023 Radiologic exam ches t 2 views Savannah Lechuga SUPERVISOR WATER SOFTENER SERVICE.ETIQUETTE TEACHER Work Phone: Start: 02-14-2023 Radiologic exam ches t 2 views Savannah Wegas SUPERVISOR WATER SOFTENER SERVICE.ETIQUETTE TEACHER Work Phone: Start: 02-07-2023 Radiologic exam ches t 2 views Sharda Wesley MD, PhD Work Phone: Start: 01-21-2023 Myocardial spect mul tiple studies Sharda Wesley MD, PhD Work Phone: Start: 06-27-2022 Ct thorax w/o contra st material Destin Lemons MD Work Phone: Start: 12-16-2019 Karlos Lemons MD Work Phone: Plan of Treatment Date Care Activity Detail Author Start: 12-06-2032 Urine microalbumin profile [facility] Start: 04-09-2026 Diabetes Screening Diabetes Screening [facility] Start: 04-05-2026 Diabetes Screening Diabetes Screening [facility] Start: 02-05-2026 DIABETES SCREEN DIABETES SCREEN [facility] Start: 02-05-2026 Diabetes Screening Diabetes Screening [facility] Start: 01-21-2026 DIABETES SCREEN DIABETES SCREEN [facility] Start: 06-27-2025 DIABETES SCREEN DIABETES SCREEN [facility] Start: 06-04-2024 BP Controlled (<130/80) BP Controlled (<130/80) [facility] Start: 05-20-2024 BP Controlled (<130/80) BP Controlled (<130/80) [facility] Start: 05-02-2024 BP Controlled (<130/80) BP Controlled (<130/80) [facility] Start: 04-21-2024 BP Controlled (<130/80) BP Controlled (<130/80) [facility] Start: 02-15-2024 BP CONTROLLED (<130/80) BP CONTROLLED (<130/80) [facility] Start: 04-04-2023 End: 04-02-2024 aPTT in Platelet poor plasma by Coagulation assay ACTIVATED PTT Lab STAT Malignant pleural effusion SOB (shortness of breath) Preop examination Expected: 04/04/2023, Expires: 04/02/2024 [facility] Work Phone: Immunizations Immunization Date Immunization Notes Care Provider Fa cility 12-06-2022 tetanus toxoid, redu jame diphtheria toxoid, and acellular pertussis vaccine, adsorbed Sharda Wesley MD, PhD Work Phone: [facility] 12-06-2022 zoster vaccine recombinant Sharda Wesley MD, PhD Work Phone: [facility] 09-03-2022 zoster vaccine recombinant Sharda Wesley MD, PhD Work Phone: [facility] 07-16-2022 Seasonal, quadrivale nt, recombinant, injectable influenza vaccine, preservative free Sharda Wesley MD, PhD Work Phone: [facility] 07-16-2022 influenza virus vacc ine, unspecified formulation Sharda Wesley MD, PhD Work Phone: [facility] 10-13-2020 COVID-19 original vaccine, full dose, monovalent (MODERNA) Florentino Jameson MD Work Phone: [facility] 09-12-2020 COVID-19 original vaccine, full dose, monovalent (MODERNA) Florentino Jameson MD Work Phone: [facility] 09-07-2019 pneumococcal polysaccharide vaccine, 23 valent Destin eLmons MD Work Phone: [facility] 06-26-2019 influenza, high dose seasonal, preservative-free Destin Lemons MD Work Phone: [facility] 08-29-2018 pneumococcal conjuga te vaccine, 13 valent Destin Lemons MD Work Phone: [facility] 05-10-2017 influenza, seasonal, injectable Destin Lemons MD Work Phone: [facility] 10-13-2014 pneumococcal polysaccharide vaccine, 23 valent Avis Cordoba RN [facility] 06-05-2014 influenza, seasonal, injectable Avis Cordoba RN [facility] Work Phone: 05-18-2014 influenza, seasonal, injectable Destin Lemons MD Work Phone: [facility] 05-13-2013 influenza, seasonal, injectable Destin Lemons MD Work Phone: [facility] 04-09-2012 tetanus toxoid, redu jame diphtheria toxoid, and acellular pertussis vaccine, adsorbed Destin Lemons MD Work Phone: [facility] Payers Date Payer Category Payer Medicare [id number] 2019 Private Health Insurance [employer] A ETNA MEDICARE SUPPLEMENT [id number] 2019-Present [phone] [address] [address] [place] [address] Indemnity [id number] 2011 Medicare MEDICARE MEDICAR E A AND B [id number] 2011-Present [phone] [address] [address] [place] [address] Medicare [id number] 2011 Medicare [id number] Social History Date Type Detail Facility Start: 06-01-2022 End: 12-18-2022 Tobacco smoking status NHIS Ex-smoker [facility] Start: 07-15-1974 End: 08-08-2014 History of tobacco use Current smoker [facility] Start: 07-15-1974 End: 08-08-2014 History of tobacco use Cigarette Smoker [facility] Start: 06-01-2022 End: 12-18-2022 Cigarettes smoked current (pack per day) - Reported 0.5 [facility] Start: 06-01-2022 End: 12-18-2022 Tobacco use and exposure Smokeless tobacco non-user [facility] Start: 06-01-2022 End: 05-28-2023 Alcohol intake Current drinker of alcohol (finding) [facility] Start: 06-01-2022 Alcohol Comment OCCASSIONAL GLASS OF WINE [facility] Start: 1945 Sex Assigned At Not on file [facility] Start: 06-04-2022 End: 06-14-2022 Exposure to SARS-CoV-2 (event) Not sure [facility] Start: 12-18-2022 End: 01-21-2023 Tobacco use panel [facility] National Score (1-10 0), lower number is lower risk 35 [facility] (I/We) worried wheth er (my/our) food would run out before (I/we) got money to buy more. Never true [facility] In the past 12 month s, was there a time when you were not able to pay the mortgage or rent on time? No [facility] Clinical Notes 06-01-2022 to 07-19-2023 Routine - Anabela Flanagan RN - 07/02/2023 10:46 AM [facility] Routine - Anabela Flanagan RN - 06/28/2023 10:56 AM [facility] Routine - Anabela Flanagan RN - 06/21/2023 10:31 AM EST Note Date & Type Note Facility 07-19-2023 Note HNO ID: [id number] Author: SAVANNAH LECHUGA APRN.CNP Service: ? Author Type: Nurse Practitioner Type: Progress Notes Filed: 07/19/2023 10:03 Note Text: Heart, Vascular AND Thoracic [place] Department of Thoracic Surgery TELEPHONE VISIT (audio only) PROGRESS NOTE This is a telephone encounter initiated for an established patient. The patient, parent or guardian is not originating from a related Evaluation AND Management service provided within the previous 7 days nor leading to an Evaluation AND Management service or procedure within the next 24 hours or soonest available appointment. I have communicated my name and active licensure. The patient's identity and physical location were verified at the time of this visit. Either the patient or their legal insurance account representative has been informed of the risks and benefits of -- and alternatives to -- treatment through a remote evaluation and consents to proceed with the evaluation remotely. Gee Laura has consented to this telephone encounter. Persons Present: patient Total Time Spent: 21-30 minutes Savannah Lechuga APRN.NAVDEEP Part of this note was copied from previous note, all content has been individually reviewed, updated as necessary, and thoroughly reviewed. [facility] - OUTPATIENT THORACIC SURGERY CLINIC NOTE PT NAME: Gee Laura [facility] NO: [id number] THORACIC SURGEON: Sharda Wesley M.D. DATE OF SERVICE: 07/19/2023 PRINCIPAL DX: left malignant pleural effusion SURGICAL HX: 10/14/2015: Right VATS pleural biopsy, drainage of effusion, intercostal nerve blocks, and mechanical and chemical pleurodesis. 02/01/2023: Left VATS pleural biopsy and drainage of effusion, talc poudrage and intercostal nerve block 04/08/2023: Left ultrasound guided Pleurx catheter placement Surgical Pathology: FINAL DIAGNOSIS 10/14/15 Pleura, right, biopsy - Chronic inflammation and reactive mesothelial hyperplasia. - Negative for tumor. FINAL DIAGNOSIS 02/01/23 A. Left pleura, biopsy: - Adenosquamous cell carcinoma. REASON FOR VISIT: Pleurex evaluation HPI: Gee Laura is a 77 year old female former smoker (30 ppy hx; quit in 2014) . 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 For recurrent right pleural effusion underwent right VATS pleural biopsy, mechanical and chemical pleurodesis 10/2015. Left pleural effusion was first discovered on 12/01/[address] (currently on Gilortif). Underwent left thoracentesis, for which cytology showed metastatic adenocarcinoma. Surveillance CCT done in 09/2022 again showed left pleural effusion. Patient underwent left thoracentesis with 670 cc removed on 10/22/2022 cytology again positive for metastatic adenocarcinoma. Now presents for surgical drainage and pleurodesis of left pleural effusion. On 02/01/2023 underwent Left VATS pleural biopsy with Talc pleurodesis. She was discharged home 02/03/23 with a martha drain which was removed in OPD. Interval CT 03/15 showed recurrent L pleural effusion. Taken to OR on 04/08/[address] Wesley for left ultrasound guided Pleurx catheter placement. Discharged home 04/09/2023. PHYSICAL EXAM: VITAL SIGNS: There were no vitals taken for this visit. Room air Incision location: Left Thoracoport sites Incision Assessment: Per Patient-Well approximated and no drainage, swelling, erythema or warmth Drain/Tubes: Left pleurex catheter IMAGE CXR 07/18/2023 INTERVAL HISTORY: Gee Laura is phoned today for a pleurex catheter evaluation. She states that she has started draining her pleurex weekly. Output has been 40-50 cc. She states she still has a benefit from the drainage so wishes to keep the drain. Is planning to drain later today. Is easily speaking in full sentences today. Voice is clear, does not sound hoarse, although she states sometimes can get raspy. has an appointment next month for another vocal cord injection. Weight now 107 lbs. Started drinking Ensure. This has to help stabilize her weight. CXR looks unchanged from last month. There is still a small left base effusion. Left apical opacity present. She will get a CXR 08/21/23 and we will have a phone visit next day. IMPRESSION: 77 year old female s/p Left VATS pleural biopsy and drainage of effusion, talc poudrage and intercostal nerve block 02/01/[address] Wesley for left malignant pleural effusion. Left pleurex cathter placed 04/08/23 for recurrent effusion PLAN: - continue draining Pleurex weekly - phone visit 08/22/23 after 08/21/23 CXR - ENT management with Dr Simeon - local oncology management with Dr Hartmann - Local pulmonary management with Dr Buck Lechuga, [facility] 07-18-2023 Note HNO ID: [id number] Author: FRANKLIN GREEN RT(R) Service: Radiology Author Type: Technologist Type: Progress Notes Filed: 07/18/2023 09:55 Note Text: Radiology Service Progress Note PATIENT NAME: Gee Laura DATE OF SERVICE: July 18, 2023 TIME: 9:47 AM PATIENT IDENTITY VERIFICATION COMPLETED USING TWO (2) IDENTIFIERS: Name and Date of confirmed by patient verbally. FALL SCREENING: Has the patient had 2 falls in the last year or 1 fall with injury or currently using an Ambulatory Assistive Device (Walker, Cane, Wheelchair, Crutches, etc.)? No PATIENT GENDER DATA: Female. status: : No status: NO. PATIENT RELEVANT IMPLANT DATA REVIEWED: Yes RADIOLOGY DEPARTMENT: General X-ray: Exam(s) Completed: Chest X-Ray PERIPHERAL IV DATA: Not applicable SIGNED BY: RT Yamil(R) July 18, 2023 9:47 AM [facility] 07-16-2023 Note HNO ID: [id number] Author: Matti Simeon MD Service: ? Author Type: Physician Type: Progress Notes Filed: 07/16/2023 9:37 AM Note Text: LARYNGOLOGY RETURN PATIENT NOTE Assessment and Plan: The primary encounter diagnosis was Vocal fold paralysis, left. Diagnoses of Hoarseness, History of tobacco abuse, and Primary adenocarcinoma of right lung (HCC) were also pertinent to this visit. is a 77 year old female with the above diagnoses. Reviewed survey testing from today Left vocal fold augmentation injection completed with Restylane 05/28/2023 Videostroboscopy reveals longitudinal gap in high frequencies only. Will plan to inject more than 1 mL of Restylane at future injection Move forward with plan to repeat office injection of Restylane in August Patient has some dysphagia with incomplete records available. Has been treated by gastroenterology in the past locally. Offered the patient evaluation with testing or referral in our system but she wishes to contact her primary care doctor and be evaluated by a local waitstaff captain. Think this is reasonable. Risks, benefits, alternatives, and staffing discussed with the patient prior to injection. Specific risks include inadequate voice effect, vocal fold bleeding or scarring, blood in the sputum, dysphagia immediately after the procedure, and reaction to gel HPI: Gee Laura is a 77 year old female who presents with left vocal fold paralysis identified by Dr. Jameson. She had a private ENT identify this and then refer her to the [facility] and then she was referred to me. She has been hoarse since a left VATS procedure with Dr. Wesley for pulmonary adenocarcinoma. She had a talc pleurodesis 02/03/2023. She has been hoarse since then. She has been doing well with swallowing but had some trouble initially. She does feel her voice is gotten better since the initial injury. She has remote smoking history of 30 pack years INTERVAL HPI 07/16/23: voice dramatically improved. Has had some issues with food sticking in throat. Happened last about a month ago. She had an issue with banana nut bread where she felt like it stuck in her throat. She has previously been evaluated and treated with dilations which helped under the care of a waitstaff captain but her waitstaff captain retired. None of the results of her modified barium swallow or endoscopies are available. ALLERGIES Allergen Reactions Adhesive Tape (Adrianna* Itching Ipratropium-Albuter* Hives SOB Lactose Other: See Comments Lamisil [Terbinafin* Rash, Intolerance Face and eye swelling Current Outpatient Medications Medication Sig osimertinib (TAGRISSO) 80 mg tablet Take 80 mg by mouth every evening. Per Dr Hartmann valACYclovir (VALTREX) 500 mg tablet 1 tablet once daily. (Patient taking differently: Take 500 mg by mouth once daily.) dicyclomine (BENTYL) 20 mg tablet Take 1 tablet by mouth four times daily. esomeprazole (NEXIUM) 20 mg capsule Take 2 capsules by mouth twice daily before meals. carvedilol (COREG) 25 mg tablet Take 1 tablet by mouth twice daily. TAKE WITH FOOD. (Patient taking differently: Take 0.5 tablets by mouth two times a day. TAKE WITH FOOD.) losartan (COZAAR) 50 mg tablet Take 25 mg by mouth once daily. 06/18/22: PT NOTIFIED ME OF THIS BEING ADDED FOR ELEVATED BP. tiotropium bromide (SPIRIVA RESPIMAT) 2.5 mcg/actuation inhaler Inhale 2 Puffs as instructed once daily. albuterol sulfate (VENTOLIN INHALATION) Inhale 2 Puffs as instructed once daily. ALSO USES PRN for shortness of breath up to twice daily L. paracasei/L. rhamnosus (CULTURELLE ADVANCED REGULARITY ORAL) Take 1 capsule by mouth once daily. VITAMIN E ACETATE ORAL Take 1 tablet by mouth once daily. loperamide HCl (IMODIUM ORAL) Take 1 tablet by mouth once daily as needed (diarrhea). acetaminophen (TYLENOL) 325 mg tablet Take 2 tablets by mouth every 6 hours as needed for Pain or Fever. ibuprofen (MOTRIN) 400 mg tablet Take 1 tablet by mouth every 6 hours as needed for Pain or Fever. CALCIUM CARBONATE/VITAMIN D3 (CALCIUM + D ORAL) Take 1 tablet by mouth once daily. Multivitamin capsule Take 1 capsule by mouth once daily. No current facility-administered medications for this visit. PAST MEDICAL HISTORY Diagnosis Date Colitis Contracture of palmar fascia Hepatitis unknown type Hepatitis A Lung cancer (HCC) Hx stage IIIA NSCLCa of right mid lung, s/p chemoradiation, remission since Mar 2015 Pleural effusion 08/25 AND 08/27/15 s/p U/S Guided Thoracentesis Psoriasis Skin cancer left and right side of face. Treated. Tobacco abuse Wears glasses PAST SURGICAL HISTORY Procedure Laterality Date APPENDECTOMY HX CHEMICAL PLEURODESIS Left 02/01/2023 Left VATS pleural biopsy with Talc pleurodesis CHG BRONCH DX W/WO WASH CHOLECYSTECTOMY HX HERNIA REPAIR HX HYSTERECTOMY HX total OPEN PLEURAL BIOPSY Right 10/14/2015 Right VATS pleural (more content not included)... [facility] 07-02-2023 Miscellaneous Notes SITUATION: Mcc routine visit completed today. only patient present during today's visit. patient reports the following: Allergies--reviewed Medications--reviewed current medications Falls--None BACKGROUND: Reason for Home Care: pleural drain care ASSESSMENT: SN greeted at door by patient no DME and demonstrates stable gait. Patient appears in no acute distress. Patient/CG concerns verbalized today: Pt verbalizes no new concerns. Vitals (see flow sheet for details): stable SN findings today: Pt ambulating in the apt, she continues to have shortness of breath with moderate exertion which progressively worsens after drain. Pleural drain produced 40 ml clear gold colored fluid today. Pt again had the sharp pain when drain stopped and this resolved within a minute. Pt reports that she would like to consider decreasing draining to weekly. SN to communicate with [employer] INVESTIGATOR for order. See intervention summary for education details. Patient demonstrated a need for further skilled SN services for chronic disease management & education, safety and drain/tube care. Current Discharge plan: self-care RECOMMENDATION: Next visit to focus on (be specific): pleural drain care documented in this encounter [facility] 06-28-2023 Miscellaneous Notes SITUATION: Mcc routine visit completed today. only patient present during today's visit. patient reports the following: Allergies--reviewed Medications--reviewed current medications Falls--None BACKGROUND: Reason for Home Care: pleural drain care ASSESSMENT: SN greeted at door by patient no DME and demonstrates stable gait. Patient appears in no acute distress. Patient/CG concerns verbalized today: pt verbalizes that she still has increased shortness of breath before draining. Vitals (see flow sheet for details): stable SN findings today: See respiratory notes. No issues noted at pleural drain site. Pt saw pulmonogy today and reports that her pulmonary function testing showed a slight decline since last year but that they were satisfied with the results. Pt continues to have increased shortness of breath when draining is due; she reports that this is relieved with draining and does not want drain to be removed even though it is producing <50 ml; she is getting increased symptom relief from the procedure. See intervention summary for education details. Patient demonstrated a need for further skilled SN services for chronic disease management & education, medication education, safety and drain/tube care. Current Discharge plan: self-care RECOMMENDATION: Next visit to focus on (be specific): pleural drain care documented in this encounter [facility] 06-21-2023 Miscellaneous Notes SITUATION: Mcc routine visit completed today. only patient present during today's visit. patient reports the following: Allergies--reviewed Medications--reviewed current medications Falls--None BACKGROUND: Reason for Home Care: pleural drain care ASSESSMENT: SN greeted at door by patient no DME and demonstrates stable gait. Patient appears in no acute distress. Patient/CG concerns verbalized today: no new concerns Vitals (see flow sheet for details): stable SN findings today: Pt sitting on couch for draining. Pleural drain produced 40 ml clear gold colored fluid. Pt had sudden sharp pain which lasted about a minute and then resolved. Draining was stopped when pain occurred. Pt reports that she continues to feel relief of shortness of breath with each draining. Pt also reports that she saw oncologist this week and no changes to treatment plan. She states that he told her that her CT scan showed everything to be stable . See intervention summary for education details. Patient demonstrated a need for further skilled SN services for drain/tube care. Current Discharge plan: self-care RECOMMENDATION: Next visit to focus on (be specific): Pleurex drain care documented in this encounter [facility] 06-18-2023 Miscellaneous Notes SITUATION: Mcc routine visit completed today. only patient present during today's visit. patient reports the following: Allergies--reviewed Medications--reviewed current medications Falls--None BACKGROUND: Reason for Home Care: Pleural drain care ASSESSMENT: SN greeted at door by patient no DME and demonstrates stable gait. Patient appears in no acute distress. Patient/CG concerns verbalized today: no special concerns Vitals (see flow sheet for details): stable SN findings today: Pt reports that she has had more shortness of breath, usual level for the day of draining. Lung sounds without change. Pleural drain produced 50 ml of gold colored fluid. Pt reports relief of shortness of breath after drain. See intervention summary for education details. Patient demonstrated a need for further skilled SN services for drain/tube care. Current Discharge plan: self-care RECOMMENDATION: Next visit to focus on (be specific): pleural drain care documented in this encounter [facility] 06-11-2023 Note HNO ID: [id number] Author: Savannah Lechuga APRN.NAVDEEP Service: ? Author Type: Nurse Practitioner Type: Progress Notes Filed: 06/11/2023 6:41 PM Note Text: Heart, Vascular AND Thoracic [place] Department of Thoracic Surgery TELEPHONE VISIT (audio only) PROGRESS NOTE This is a telephone encounter initiated for an established patient. The patient, parent or guardian is not originating from a related Evaluation AND Management service provided within the previous 7 days nor leading to an Evaluation AND Management service or procedure within the next 24 hours or soonest available appointment. I have communicated my name and active licensure. The patient's identity and physical location were verified at the time of this visit. Either the patient or their legal insurance account representative has been informed of the risks and benefits of -- and alternatives to -- treatment through a remote evaluation and consents to proceed with the evaluation remotely. Gee Laura has consented to this telephone encounter. Persons Present: patient Total Time Spent: 21-30 minutes Savannah Lechuga APRN.NAVDEEP Part of this note was copied from previous note, all content has been individually reviewed, updated as necessary, and thoroughly reviewed. [facility] - OUTPATIENT THORACIC SURGERY CLINIC NOTE PT NAME: Gee Laura [facility] NO: [id number] THORACIC SURGEON: Sharda Wesley M.D. DATE OF SERVICE: 06/11/23 PRINCIPAL DX: left malignant pleural effusion SURGICAL HX: 10/14/2015: Right VATS pleural biopsy, drainage of effusion, intercostal nerve blocks, and mechanical and chemical pleurodesis. 02/01/2023: Left VATS pleural biopsy and drainage of effusion, talc poudrage and intercostal nerve block 04/08/2023: Left ultrasound guided Pleurx catheter placement Surgical Pathology: FINAL DIAGNOSIS 10/14/15 Pleura, right, biopsy - Chronic inflammation and reactive mesothelial hyperplasia. - Negative for tumor. FINAL DIAGNOSIS 02/01/23 A. Left pleura, biopsy: - Adenosquamous cell carcinoma. REASON FOR VISIT: Post-operative visit HPI: Gee Laura is a 77 year old female former smoker (30 ppy hx; quit in 2014) . 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 For recurrent right pleural effusion underwent right VATS pleural biopsy, mechanical and chemical pleurodesis 10/2015. Left pleural effusion was first discovered on 12/01/[address] (currently on Gilortif). Underwent left thoracentesis, for which cytology showed metastatic adenocarcinoma. Surveillance CCT done in 09/2022 again showed left pleural effusion. Patient underwent left thoracentesis with 670 cc removed on 10/22/2022 cytology again positive for metastatic adenocarcinoma. Now presents for surgical drainage and pleurodesis of left pleural effusion. On 02/01/2023 underwent Left VATS pleural biopsy with Talc pleurodesis. She was discharged home 02/03/23 with a martha drain which was removed in OPD. Interval CT 03/15 showed recurrent L pleural effusion. Taken to OR on 04/08/[address] Wesley for left ultrasound guided Pleurx catheter placement. Discharged home 04/09/2023. PHYSICAL EXAM: VITAL SIGNS: There were no vitals taken for this visit. Room air Incision location: Left Thoracoport sites Incision Assessment: Per Patient-Well approximated and no drainage, swelling, erythema or warmth Drain/Tubes: Left pleurex catheter IMAGING/TESTS: CXR 06/10/23 INTERVAL HISTORY: Gee Laura is phoned today for a pleurex catheter evaluation. She had her vocal cord injection a few weeks ago, and her voice os quite strong. SOB has improved. She is now draining the pleurex twice a week. She states that she is getting around 50 cc of fluid out and still has improvement in symptoms. She states that she has had chest and back discomfort, improved with drainage. She is not yet ready to consider removal of the pleurex as she still has a benefit from drainage. Her weight had decreased to 110 lbs from 130 lbs. She has started on a protein drink. Hoping it will help. CXR continues to show right hilar opacity, small left effusion which looks slightly improved. She will get a CXR in [place] in 4 weeks and we will have a phone visit next day. She jason get a CXR on 07/18/23 and we jason have a phone visit 07/19/23. IMPRESSION: 77 year old female s/p Left VATS pleural biopsy and drainage of effusion, talc poudrage and intercostal nerve block 02/01/[address] Wesley for left malignant pleural effusion. Left pleurex cathter placed 04/08/23 for recurrent effusion PLAN: - continue draining Pleurex twice a week, may space out when she is comfortable - phone visit 07/19/23 after CXR - ENT management with Dr Simeon - local oncology management with Dr Hartmann - Local pulmonary management with Dr Buck Lechuga APRN.[facility] 06-10-2023 Note HNO ID: [id number] Author: Michelle Vázquez RT(R) Service: ? Author Type: Warehouse Freight Handler Type: Progress Notes Filed: 06/10/2023 10:32 AM Note Text: Radiology Service Progress Note PATIENT NAME: Gee Laura DATE OF SERVICE: June 10, 2023 TIME: 10:25 AM PATIENT IDENTITY VERIFICATION COMPLETED USING TWO (2) IDENTIFIERS: Name and Date of confirmed by patient verbally. FALL SCREENING: Has the patient had 2 falls in the last year or 1 fall with injury or currently using an Ambulatory Assistive Device (Walker, Cane, Wheelchair, Crutches, etc.)? No PATIENT GENDER DATA: Female. status: : No status: NO. PATIENT RELEVANT IMPLANT DATA REVIEWED: Yes RADIOLOGY DEPARTMENT: General X-ray: Exam(s) Completed: Chest X-Ray PERIPHERAL IV DATA: Not applicable SIGNED BY: RT Joelle(R) June 10, 2023 10:25 AM [facility] 06-04-2023 Miscellaneous Notes SITUATION: Mcc routine visit completed today. significant other also present during today's visit. patient reports the following: Allergies--reviewed Medications--reviewed current medications Falls--None DME-NONE BACKGROUND: Reason for Home Care: pleurx cath care ASSESSMENT: SN greeted at door by patient no DME and demonstrates stable gait. Patient appears in no acute distress. Patient/CG concerns verbalized today: none Vitals (see flow sheet for details): stable SN findings today: pt greeted sn at door. pts room mate is also present. pt denies any pain. pt denies any falls since last sn visit. pt is compliant with medications and states there have been no med changes. pt has a visit with her pcp tomorrow. pt states she is following up with onc in 2 weeks and hopes to have pleurx cath removed. sn drained today and changed dressing to pleurx site on left side. pt tolerated procedure well with minimum discomfort. sn drained off a total of 55 cc, yellow fluid. pt has 13 kits left in home. pt states her appetite is getting better and things are tasting better recently. pts vitals are wnl. pt denies any cp or sob. pt does not use any assistive devices to ambulate, gait is steady. pt denies any gu issues. pt does c/o mild diarrhea from her chemo pill. sn educated pt on eating yogurt and plain toast to help with this. next visit schedule reviewed with pt. See intervention summary for education details. Patient demonstrated a need for further skilled SN services for chronic disease management & education, safety and drain/tube care. Current Discharge plan: self-care RECOMMENDATION: Next visit to focus on (be specific): pleurx care documented in this encounter [facility] 05-30-2023 Miscellaneous Notes SITUATION: Mcc routine visit completed today. only patient also present during today's visit. patient reports the following: Allergies--reviewed Medications--reviewed current medications Falls--None DME-Reviewed and added to chart BACKGROUND: Reason for Home Care: pleurex drain care ASSESSMENT: SN greeted at door by patient no DME and demonstrates stable gait. Patient appears in no acute distress. Patient/CG concerns verbalized today: none Vitals (see flow sheet for details): stable HR 102, pt states, my HR is always high, I take medicine for it SN findings today: pt pleasant. pt denies c/o or concerns for SN. pt states she has 4 drain kit left, SN sent email to pt's CM requesting a supply order be placed. pt states the dr fixed my voice box. pt now able to speak in much stronger voice, pt is very happy. pt denies GI/ issues. SN performed pleurex drainge for pt, 60ml clear pale yellow fluid obtained, pt tolerated well. site has sutures and scabbing, no redness. SN applied skin prep before placing dressing. See intervention summary for education details. Patient demonstrated a need for further skilled SN services for drain/tube care. Current Discharge plan: recertification RECOMMENDATION: Next visit to focus on (be specific): pleurex drainage/drain care. documented in this encounter [facility] 05-28-2023 Note HNO ID: [id number] Author: Matti Simeon MD Service: ? Author Type: Physician Type: Progress Notes Filed: 05/28/2023 4:28 PM Note Text: LARYNGOLOGY NEW PATIENT NOTE CC: This patient is seen at the request of Florentino Jameson MDfor the evaluation of vocal fold paralysis. Report from this visit will be shared with referring provider via the electronic medical record. Assessment and Plan: The primary encounter diagnosis was Hoarseness. Diagnoses of Vocal fold paralysis, left, History of tobacco abuse, and Primary adenocarcinoma of right lung (HCC) were also pertinent to this visit. is a 77 year old female with the above diagnoses. Reviewed survey testing from today Left vocal fold augmentation injection completed with Restylane Risks, benefits, alternatives, and staffing discussed with the patient prior to injection. Specific risks include inadequate voice effect, vocal fold bleeding or scarring, blood in the sputum, dysphagia immediately after the procedure, and reaction to gel HPI: Gee Laura is a 77 year old female who presents with left vocal fold paralysis identified by Dr. Jameson. She had a private ENT identify this and then refer her to the [facility] and then she was referred to me. She has been hoarse since a left VATS procedure with Dr. Wesley for pulmonary adenocarcinoma. She had a talc pleurodesis 02/03/2023. She has been hoarse since then. She has been doing well with swallowing but had some trouble initially. She does feel her voice is gotten better since the initial injury. She has remote smoking history of 30 pack years ALLERGIES Allergen Reactions Adhesive Tape (Adrianna* Itching Ipratropium-Albuter* Hives SOB Lactose Other: See Comments Lamisil [Terbinafin* Rash, Intolerance Face and eye swelling Current Outpatient Medications Medication Sig osimertinib (TAGRISSO) 80 mg tablet Take 80 mg by mouth every evening. Per Dr Hartmann valACYclovir (VALTREX) 500 mg tablet 1 tablet once daily. (Patient taking differently: Take 500 mg by mouth once daily.) dicyclomine (BENTYL) 20 mg tablet Take 1 tablet by mouth four times daily. esomeprazole (NEXIUM) 20 mg capsule Take 2 capsules by mouth twice daily before meals. carvedilol (COREG) 25 mg tablet Take 1 tablet by mouth twice daily. TAKE WITH FOOD. losartan (COZAAR) 50 mg tablet Take 50 mg by mouth once daily. 06/18/22: PT NOTIFIED ME OF THIS BEING ADDED FOR ELEVATED BP. tiotropium bromide (SPIRIVA RESPIMAT) 2.5 mcg/actuation inhaler Inhale 2 Puffs as instructed once daily. albuterol sulfate (VENTOLIN INHALATION) Inhale 2 Puffs as instructed once daily. ALSO USES PRN for shortness of breath up to twice daily L. paracasei/L. rhamnosus (CULTURELLE ADVANCED REGULARITY ORAL) Take 1 capsule by mouth once daily. VITAMIN E ACETATE ORAL Take 1 tablet by mouth once daily. loperamide HCl (IMODIUM ORAL) Take 1 tablet by mouth once daily as needed (diarrhea). acetaminophen (TYLENOL) 325 mg tablet Take 2 tablets by mouth every 6 hours as needed for Pain or Fever. ibuprofen (MOTRIN) 400 mg tablet Take 1 tablet by mouth every 6 hours as needed for Pain or Fever. CALCIUM CARBONATE/VITAMIN D3 (CALCIUM + D ORAL) Take 1 tablet by mouth once daily. Multivitamin capsule Take 1 capsule by mouth once daily. No current facility-administered medications for this visit. PAST MEDICAL HISTORY Diagnosis Date Colitis Contracture of palmar fascia Hepatitis unknown type Hepatitis A Lung cancer (HCC) Hx stage IIIA NSCLCa of right mid lung, s/p chemoradiation, remission since Mar 2015 Pleural effusion 08/25 AND 08/27/15 s/p U/S Guided Thoracentesis Psoriasis Skin cancer left and right side of face. Treated. Tobacco abuse Wears glasses PAST SURGICAL HISTORY Procedure Laterality Date APPENDECTOMY HX CHEMICAL PLEURODESIS Left 02/01/2023 Left VATS pleural biopsy with Talc pleurodesis CHG BRONCH DX W/WO WASH CHOLECYSTECTOMY HX HERNIA REPAIR HX HYSTERECTOMY HX total OPEN PLEURAL BIOPSY Right 10/14/2015 Right VATS pleural biopsy, drainage of effusion, intercostal nerve blocks, and mechanical and chemical pleurodesis (Doxycycline) for Lung cancer, right pleural effusion, and respiratory insufficiency PLEURX CATHETER Left 04/08/2023 Left ultrasound guided Pleurx catheter placement PORTOCATH PLACEMENT 10/08/2014 TONSILLECTOMY HX TUBAL LIGATION HX Social History: Social History Tobacco Use Smoking status: Former Packs/day: 0.75 Years: 40.00 Additional pack years: 0.00 Total pack years: 30.00 Types: Cigarettes Start date: 1974 Quit date: 08/08/2014 Years since quittin.8 Smokeless tobacco: Never Vaping Use Vaping Use: Never used Substance Use Topics Alcohol use: Yes Comment: OCCASSIONAL GLASS OF WINE Drug use: Not Currently FAMILY HISTORY Problem Relation Age of Onset other (brain surgery [Other]) Mother Uterine Cancer Mother other (liver disease [O (more content not included)... [facility] 05-28-2023 History of Present illness Narrative LARYNGOLOGY NEW PATIENT NOTE CC: This patient is seen at the request of Florentino Jameson MDfor the evaluation of vocal fold paralysis. Report from this visit will be shared with referring provider via the electronic medical record. Assessment and Plan: The primary encounter diagnosis was Hoarseness. Diagnoses of Vocal fold paralysis, left, History of tobacco abuse, and Primary adenocarcinoma of right lung (HCC) were also pertinent to this visit. is a 77 year old female with the above diagnoses. Reviewed survey testing from today Left vocal fold augmentation injection completed with Restylane Risks, benefits, alternatives, and staffing discussed with the patient prior to injection. Specific risks include inadequate voice effect, vocal fold bleeding or scarring, blood in the sputum, dysphagia immediately after the procedure, and reaction to gel HPI: Gee Laura is a 77 year old female who presents with left vocal fold paralysis identified by Dr. Jameson. She had a private ENT identify this and then refer her to the [facility] and then she was referred to me. She has been hoarse since a left VATS procedure with Dr. Wesley for pulmonary adenocarcinoma. She had a talc pleurodesis 02/03/2023. She has been hoarse since then. She has been doing well with swallowing but had some trouble initially. She does feel her voice is gotten better since the initial injury. She has remote smoking history of 30 pack years ALLERGIES Allergen Reactions Adhesive Tape (Adrianna* Itching Ipratropium-Albuter* Hives SOB Lactose Other: See Comments Lamisil [Terbinafin* Rash, Intolerance Face and eye swelling Current Outpatient Medications Medication Sig osimertinib (TAGRISSO) 80 mg tablet Take 80 mg by mouth every evening. Per Dr Hartmann valACYclovir (VALTREX) 500 mg tablet 1 tablet once daily. (Patient taking differently: Take 500 mg by mouth once daily.) dicyclomine (BENTYL) 20 mg tablet Take 1 tablet by mouth four times daily. esomeprazole (NEXIUM) 20 mg capsule Take 2 capsules by mouth twice daily before meals. carvedilol (COREG) 25 mg tablet Take 1 tablet by mouth twice daily. TAKE WITH FOOD. losartan (COZAAR) 50 mg tablet Take 50 mg by mouth once daily. 06/18/22: PT NOTIFIED ME OF THIS BEING ADDED FOR ELEVATED BP. tiotropium bromide (SPIRIVA RESPIMAT) 2.5 mcg/actuation inhaler Inhale 2 Puffs as instructed once daily. albuterol sulfate (VENTOLIN INHALATION) Inhale 2 Puffs as instructed once daily. ALSO USES PRN for shortness of breath up to twice daily L. paracasei/L. rhamnosus (CULTURELLE ADVANCED REGULARITY ORAL) Take 1 capsule by mouth once daily. VITAMIN E ACETATE ORAL Take 1 tablet by mouth once daily. loperamide HCl (IMODIUM ORAL) Take 1 tablet by mouth once daily as needed (diarrhea). acetaminophen (TYLENOL) 325 mg tablet Take 2 tablets by mouth every 6 hours as needed for Pain or Fever. ibuprofen (MOTRIN) 400 mg tablet Take 1 tablet by mouth every 6 hours as needed for Pain or Fever. CALCIUM CARBONATE/VITAMIN D3 (CALCIUM + D ORAL) Take 1 tablet by mouth once daily. Multivitamin capsule Take 1 capsule by mouth once daily. No current facility-administered medications for this visit. PAST MEDICAL HISTORY Diagnosis Date Colitis Contracture of palmar fascia Hepatitis unknown type Hepatitis A Lung cancer (HCC) Hx stage IIIA NSCLCa of right mid lung, s/p chemoradiation, remission since Mar 2015 Pleural effusion 08/25 & 08/27/15 s/p U/S Guided Thoracentesis Psoriasis Skin cancer left and right side of face. Treated. Tobacco abuse Wears glasses PAST SURGICAL HISTORY Procedure Laterality Date APPENDECTOMY HX CHEMICAL PLEURODESIS Left 02/01/2023 Left VATS pleural biopsy with Talc pleurodesis CHG BRONCH DX W/WO WASH CHOLECYSTECTOMY HX HERNIA REPAIR HX HYSTERECTOMY HX total OPEN PLEURAL BIOPSY Right 10/14/2015 Right VATS pleural biopsy, drainage of effusion, intercostal nerve blocks, and mechanical and chemical pleurodesis (Doxycycline) for Lung cancer, right pleural effusion, and respiratory insufficiency PLEURX CATHETER Left 04/08/2023 Left ultrasound guided Pleurx catheter placement PORTOCATH PLACEMENT 10/08/2014 TONSILLECTOMY HX TUBAL LIGATION HX Social History: Social History Tobacco Use Smoking status: Former Packs/day: 0.75 Years: 40.00 Additional pack years: 0.00 Total pack years: 30.00 Types: Cigarettes Start date: 1974 Quit date: 08/08/2014 Years since quittin.8 Smokeless tobacco: Never Vaping Use Vaping Use: Never used Substance Use Topics Alcohol use: Yes Comment: OCCASSIONAL GLASS OF WINE Drug use: Not Currently FAMILY HISTORY Problem Relation Age of Onset other (brain surgery [Other]) Mother Uterine Cancer Mother other (liver disease [Other]) Father Alcohol/Drug Father ETOH contributed to Colon Cancer Brother Colon Cancer Brother Cancer Maternal Grandmother Cancer Paternal Grandfather EAT 10: LCQ: [place] Cough 05/22/2023 Physical Sum Score 5.5 ( Lower scores are indicative of increased impact or lower quality of life. ) Psychological Sum Score 4.43 ( Lower scores are indicative of increased impact or lower quality of life. ) Social Sum Score 6.25 ( Lower scores are indicative of increased impact or lower quality of life.) Total Score 16.18 (Lower scores are indicative of increased impact or lower quality of life. ) VHI: ROS: A relevant 12 system review of systems was completed and was negative except as noted in the HPI PHYSICAL EXAM: On physical examination Gee Laura is a well-developed, well nourished female. Her speech is normal and her voice is hoarse. Mental status revealed patient to be alert and oriented. Mood is appropriate. Details of the physical examination: CRANIAL NERVE EXAM: II: Pupillary reflexes normal III, IV, : EOM normal V: 1,2,3: normal sensation VII: Normal strength in all divisions. VIII: Hearing grossly normal. IX, X: Hoarse voice, palatal elevation and sensation XI: Shoulder strength normal XII: Tongue mobility normal HEAD AND FACE: Physical examination of the head, neck, external nose, external ears, mouth and face fails to demonstrate any significant abnormality or asymmetry to critical face to face observation. Skin and scalp are normal. EARS: RT Canal: patent RT Drum: intact RT Pneumotoscopy: mobile LT Canal: patent LT Drum: intact LT Pneumotoscopy: mobile NOSE: Examination of the nasal cavity revealed a septum which is near midline. The mucosa is pink, and the visible turbinates are normal on anterior rhinoscopy. There is no purulence or polyps. MASTICATION: The teeth appear age-appropriate. The lips and gums are without lesions. ORAL CAVITY AND OROPHARYNX: The oral mucosa, hard and soft palates, tongue, tonsil area, and posterior pharyngeal wall are without lesions. LARYNX: Subjective evaluation of the voice was completed with details listed above. Mirror evaluation of the larynx was deferred given the need for more accurate laryngeal imaging (see below). NECK: The neck appears symmetric without scars. On palpation, there are no masses or lymphadenopathy. The thyroid is not palpable and was free of masses. No salivary gland masses or hypertrophy is noted. Muscle tension is appreciated in the bilateral strap musculature. REVIEW OF RADIOLOGICAL FILMS AND RECORDS: Reviewed ENT note Reviewed thoracic surgery notes [place] [id number] [place] [facility] CARE OPERATIVE REPORT UNIVERSAL PROTOCOL / SAFETY CHECKLIST Procedure to be Performed: Left augmentation inject Sign In: A Moment of CARE was completed. Personnel directly involved with the procedure wore the appropriate PPE (Personal Protective Equipment). Patient/Surrogate Stated/Verified: PATIENT VERIFIED(optional for EMERGENT procedures): Patient name, Date of , Relevant allergies, and The intended procedure Time Out Communication: Intended patient and procedure match the source documents. Consent documented and matches the intended procedure. Sign Out: SIGN OUT (optional for EMERGENT procedures): No specimen collected. Matti Simeon MD Patient Name: Gee Laura Patient SURGEON 1: Matti Simeon MD OPERATION: Left vocal fold injection medialization via microdirect laryngoscopy ANESTHESIA: local, topical lidocaine PREOPERATIVE DIAGNOSIS: Left vocal cord paralysis . POSTOPERATIVE DIAGNOSIS: Left vocal cord paralysis. OPERATIVE INDICATIONS: Dysphonia OPERATIVE FINDINGS: 1. Patient easily tolerated rigid transoral laryngoscopy 2. Approximately 1.0 mL of Restylane was injected into the left paraglottic space. OPERATIVE PROCEDURE: The patient was properly identified in the preprocedure area where we obtained informed consent and performed a formal time-out. From there, we began the procedure by topically anesthetizing the oropharynx with and the supraglottic larynx with aerosolized 4% lidocaine. The patient was then transported to the procedure area where we performed laryngoscopy with magnification and applied an additional 2-3 mL of 4% lidocaine to the surface of the vocal folds. Next, using a curved cannula, we injected approximately 1.0 mL of Restylane into the left paraglottic space. A slight over-correction was performed and the patient then had complete glottic closure. The patient tolerated the procedure well and then left the clinic under her own power. ATTENDING ATTESTATION: I performed the procedure ESTIMATED BLOOD LOSS: Less than 1 mL. DRAINS: None. SPECIMENS: None. COMPLICATIONS: None. Matti Simeon MD, MS, MS Laryngology and Upper Airway Surgery Matti Simeon MD, MS, MS Laryngology and Upper Airway Surgery This documentation has been completed using [employer] dictation software. Please excuse any dictation errors. documented in this encounter [facility] 05-27-[address] Simeon, SN visit completed today. Pt states I'm getting my voicebox fixed tomorrow . Pt unsure about appointment details as far as what exactly will be completed at this visit. She asked if she needs to be NPO after midnight and no information found regarding such instructions in her chart. Would you or someone from your office be able to contact her today in regards to information/questions about her appointment tomorrow? [phone]. Thank you for your time, Diann MURILLO, RN documented in this encounter [facility] 05-27-2023 Miscellaneous Notes SITUATION: Mcc routine visit completed today. only patient also present during today's visit. patient reports the following: Allergies--reviewed Medications--reviewed current medications Falls--None BACKGROUND: Reason for Home Care: PleurX drain ASSESSMENT: SN greeted at door by patient no DME and demonstrates stable gait. Patient appears in no acute distress. Patient/CG concerns verbalized today: None voiced Vitals (see flow sheet for details): stable SN findings today: Pt ambulated to greet SN at door, pleasant and cooperative for visit. Denies pain or medication changes. GI/ without concern. Appetite appropriate. Pt reports appt tomorrow to get voice box fixed but pt did not know exactly what that entailed. SN sent TC to Dr. Simeon regarding appt and if office could contact pt to provide more information on what to expect. PleurX drain completed from L chest wall - 45mL rhett fluid obained with fibrin noted. Pt had pain and discomfort with drain pretty quickly upon beginnning - SN had roller clamp partially clamped and then completely closed. New sterile dressing applied after using skin prep wipe to help with pt discomfort/itching r/t dressing. Pt updated on POC. See intervention summary for education details. Patient demonstrated a need for further skilled SN services for chronic disease management & education, medication education, wound/skin care, safety and drain/tube care. Current Discharge plan: self-care RECOMMENDATION: Next visit to focus on (be specific): PleurX drain documented in this encounter [facility] 05-20-2023 Miscellaneous Notes SITUATION: Mcc routine visit completed today. only patient present during today's visit. patient reports the following: Allergies--reviewed Medications--reviewed current medications BACKGROUND: Reason for Home Care: pleural drain care ASSESSMENT: SN greeted at door by patient no DME and demonstrates stable gait. Patient appears in no acute distress. Patient/CG concerns verbalized today: pt verbalizes that she has been having some dizziness with standing the last few days. Vitals (see flow sheet for details): stable SN findings today: Pt is ambulating in the home, her gait is steady. BP does drop when standing but pt was not dizzy during today's vs. She reports that this just started over the weekend, she has been cautious when standing to prevent a fall. Pt reprots that her fluid intake has been usual and she does not feel that she could be dehydrated. Pt does report tho that she has been having some diarrhea that has been off and on, went several times yesterday. SN instructed pt that this could be causing some dehydration and recommended she increase her fluids. Pt plans to report to cardiology and she sees oncologist today and will also discuss with him. pt reports that shortness of breath has been minimal, even with showering now. Pleural drain produced 50 ml wheat colored liquid. Pt did have a little pain at the end of draining today but did not last and was not strong as it has been in the past. SN instructed pt to discuss with Dr Hartmann about decreasing drain frequency or potentially going a week without draining and then assess drain amount. pt verbalizes understanding. See intervention summary for education details. Patient demonstrated a need for further skilled SN services for drain/tube care. Current Discharge plan: self-care and family support RECOMMENDATION: Next visit to focus on (be specific): check on how often draining now will be, Evaluate vs pattern documented in this encounter [facility] 05-17-2023 Miscellaneous Notes SITUATION: Mcc routine visit completed today. only patient present during today's visit. patient reports the following: Allergies--reviewed Medications--reviewed current medications Falls--None BACKGROUND: Reason for Home Care: pleural drain care ASSESSMENT: SN greeted at door by patient no DME and demonstrates stable gait. Patient appears in no acute distress. Patient/CG concerns verbalized today: no concerns Vitals (see flow sheet for details): stable SN findings today: Pt reports that she has had less shortness of breath and Pleural drain has produced only 50 ml the past 2 drainings. Pt scheduled to see Dr Hartmann on 05/20. She reprots that she feels that the new oral chemo is helping more than the previous med. She has been able to tolerate more activities. Lungs are clear. Pleural drain ptrocuced 50 ml wheat colored fluid today. Site is clean and intact. See intervention summary for education details. Patient demonstrated a need for further skilled SN services for drain/tube care. Current Discharge plan: self-care RECOMMENDATION: Next visit to focus on (be specific): Pleural drain care; can pleural drainings be decreased. documented in this encounter [facility] 05-14-2023 Note HNO ID: [id number] Author: Savannah Lechuga APRN.NAVDEEP Service: ? Author Type: Nurse Practitioner Type: Progress Notes Filed: 05/14/2023 9:18 AM Note Text: Heart, Vascular AND Thoracic [place] Department of Thoracic Surgery TELEPHONE VISIT (audio only) PROGRESS NOTE This is a telephone encounter initiated for an established patient. The patient, parent or guardian is not originating from a related Evaluation AND Management service provided within the previous 7 days nor leading to an Evaluation AND Management service or procedure within the next 24 hours or soonest available appointment. I have communicated my name and active licensure. The patient's identity and physical location were verified at the time of this visit. Either the patient or their legal insurance account representative has been informed of the risks and benefits of -- and alternatives to -- treatment through a remote evaluation and consents to proceed with the evaluation remotely. Gee Diamond Laura has consented to this telephone encounter. Persons Present: patient Total Time Spent: 11-20 minutes Savannah Lechuga APRN.ETIQUETTE TEACHER Part of this note was copied from previous note, all content has been individually reviewed, updated as necessary, and thoroughly reviewed. [facility] - OUTPATIENT THORACIC SURGERY CLINIC NOTE PT NAME: Gee Laura CLINIC NO: [id number] THORACIC SURGEON: Sharda Wesley M.D. DATE OF SERVICE: 05/14/2023 PRINCIPAL DX: left malignant pleural effusion SURGICAL HX: 10/14/2015: Right VATS pleural biopsy, drainage of effusion, intercostal nerve blocks, and mechanical and chemical pleurodesis. 02/01/2023: Left VATS pleural biopsy and drainage of effusion, talc poudrage and intercostal nerve block 04/08/2023: Left ultrasound guided Pleurx catheter placement Surgical Pathology: FINAL DIAGNOSIS 02/01/23 A. Left pleura, biopsy: - Adenosquamous cell carcinoma. REASON FOR VISIT: Post-operative visit HPI: Gee Laura is a 77 year old female former smoker (30 ppy hx; quit in 2014) . 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 For recurrent right pleural effusion underwent right VATS pleural biopsy, mechanical and chemical pleurodesis 10/2015. Left pleural effusion was first discovered on 12/01/[address] (currently on Gilortif). Underwent left thoracentesis, for which cytology showed metastatic adenocarcinoma. Surveillance CCT done in 09/2022 again showed left pleural effusion. Patient underwent left thoracentesis with 670 cc removed on 10/22/2022 cytology again positive for metastatic adenocarcinoma. Now presents for surgical drainage and pleurodesis of left pleural effusion. On 02/01/2023 underwent Left VATS pleural biopsy with Talc pleurodesis. She was discharged home 02/03/23 with a martha drain which was removed in OPD. Interval CT 03/15 showed recurrent L pleural effusion. Taken to OR on 04/08/[address] Wesley for left ultrasound guided Pleurx catheter placement. Discharged home 04/09/2023. PHYSICAL EXAM: VITAL SIGNS: There were no vitals taken for this visit. Room air Incision location: Left Thoracoport sites Incision Assessment: Per Patient-Well approximated and no drainage, swelling, erythema or warmth Drain/Tubes: Left pleurex catheter IMAGING/TESTS: CXR 05/13/2023 INTERVAL HISTORY: Gee Laura is phoned today for a pleurex catheter evaluation. She is still breathless on the phone. She is scheduled for a vocal cord injection 05/28/23. She started immunotherapy a week ago, and states her breathing is improving. She continues to have her pleurex drained on Saturday, Saturday and Saturday. Outputs are from 50-100 cc. She states she does feel some improvement in breathing after the drainage and is not yet ready to begin spacing out drainages. With hope, her breathing will continue to improve and we can then begin to plan on removing the catheter. CXR shows a small left base effusion. Right effusion appears to have decreased. She will get a CXR in [place] in 4 weeks and we will have a phone visit next day. IMPRESSION: 77 year old female s/p Left VATS pleural biopsy and drainage of effusion, talc poudrage and intercostal nerve block 02/01/[address] Wesley for left malignant pleural effusion. Left pleurex cathter placed 04/08/23 for recurrent effusion PLAN: - continue draining Pleurex MWF, may space out when she is comfortable - phone visit in 4 weeks - ENT management with Dr Simeon, f/u 05/28/23 for VCI - local oncology management with Dr Hartmann - Local pulmonary management with Dr Buck Lechuga APRN.ETIQUETTE TEACHER [facility] 05-14-2023 History of Present illness Narrative Images from the original note were not included. Heart, Vascular & Thoracic [place] Department of Thoracic Surgery TELEPHONE VISIT (audio only) PROGRESS NOTE This is a telephone encounter initiated for an established patient. The patient, parent or guardian is not originating from a related Evaluation & Management service provided within the previous 7 days nor leading to an Evaluation & Management service or procedure within the next 24 hours or soonest available appointment. I have communicated my name and active licensure. The patient's identity and physical location were verified at the time of this visit. Either the patient or their legal insurance account representative has been informed of the risks and benefits of -- and alternatives to -- treatment through a remote evaluation and consents to proceed with the evaluation remotely. Gee Laura has consented to this telephone encounter. Persons Present: patient Total Time Spent: 11-20 minutes Savannah Lechuga APRN.ETIQUETTE TEACHER Part of this note was copied from previous note, all content has been individually reviewed, updated as necessary, and thoroughly reviewed. [facility] - OUTPATIENT THORACIC SURGERY CLINIC NOTE PT NAME: Gee Laura CLINIC NO: [id number] THORACIC SURGEON: Shadra Wesley M.D. DATE OF SERVICE: 05/14/2023 PRINCIPAL DX: left malignant pleural effusion SURGICAL HX: 10/14/2015: Right VATS pleural biopsy, drainage of effusion, intercostal nerve blocks, and mechanical and chemical pleurodesis. 02/01/2023: Left VATS pleural biopsy and drainage of effusion, talc poudrage and intercostal nerve block 04/08/2023: Left ultrasound guided Pleurx catheter placement Surgical Pathology: FINAL DIAGNOSIS 02/01/23 A. Left pleura, biopsy: - Adenosquamous cell carcinoma. REASON FOR VISIT: Post-operative visit HPI: Gee Laura is a 77 year old female former smoker (30 ppy hx; quit in 2014) . 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 For recurrent right pleural effusion underwent right VATS pleural biopsy, mechanical and chemical pleurodesis 10/2015. Left pleural effusion was first discovered on 12/01/[address] (currently on Gilortif). Underwent left thoracentesis, for which cytology showed metastatic adenocarcinoma. Surveillance CCT done in 09/2022 again showed left pleural effusion. Patient underwent left thoracentesis with 670 cc removed on 10/22/2022 cytology again positive for metastatic adenocarcinoma. Now presents for surgical drainage and pleurodesis of left pleural effusion. On 02/01/2023 underwent Left VATS pleural biopsy with Talc pleurodesis. She was discharged home 02/03/23 with a martha drain which was removed in OPD. Interval CT 03/15 showed recurrent L pleural effusion. Taken to OR on 04/08/[address] Wesley for left ultrasound guided Pleurx catheter placement. Discharged home 04/09/2023. PHYSICAL EXAM: VITAL SIGNS: There were no vitals taken for this visit. Room air Incision location: Left Thoracoport sites Incision Assessment: Per Patient-Well approximated and no drainage, swelling, erythema or warmth Drain/Tubes: Left pleurex catheter IMAGING/TESTS: CXR 05/13/2023 INTERVAL HISTORY: Gee Laura is phoned today for a pleurex catheter evaluation. She is still breathless on the phone. She is scheduled for a vocal cord injection 05/28/23. She started immunotherapy a week ago, and states her breathing is improving. She continues to have her pleurex drained on Saturday, Saturday and Saturday. Outputs are from 50-100 cc. She states she does feel some improvement in breathing after the drainage and is not yet ready to begin spacing out drainages. With hope, her breathing will continue to improve and we can then begin to plan on removing the catheter. CXR shows a small left base effusion. Right effusion appears to have decreased. She will get a CXR in [place] in 4 weeks and we will have a phone visit next day. IMPRESSION: 77 year old female s/p Left VATS pleural biopsy and drainage of effusion, talc poudrage and intercostal nerve block 02/01/[address] Wesley for left malignant pleural effusion. Left pleurex cathter placed 04/08/23 for recurrent effusion PLAN: - continue draining Pleurex MWF, may space out when she is comfortable - phone visit in 4 weeks - ENT management with Dr Simeon, f/u 05/28/23 for VCI - local oncology management with Dr Hartmann - Local pulmonary management with Dr Buck Lechuga APRN.ETIQUETTE TEACHER documented in this encounter [facility] 05-13-2023 Note HNO ID: [id number] Author: Nirali Macias RT(R) Service: ? Author Type: Technologist Type: Progress Notes Filed: 05/13/2023 12:13 PM Note Text: Radiology Service Progress Note PATIENT NAME: Gee Laura DATE OF SERVICE: May 13, 2023 TIME: 12:13 PM PATIENT IDENTITY VERIFICATION COMPLETED USING TWO (2) IDENTIFIERS: Name and Date of confirmed by patient verbally. FALL SCREENING: Has the patient had 2 falls in the last year or 1 fall with injury or currently using an Ambulatory Assistive Device (Walker, Cane, Wheelchair, Crutches, etc.)? No PATIENT GENDER DATA: Female. status: : No status: NO. PATIENT RELEVANT IMPLANT DATA REVIEWED: Not Applicable RADIOLOGY DEPARTMENT: General X-ray: Exam(s) Completed: Chest X-Ray PERIPHERAL IV DATA: Not applicable SIGNED BY: RT Nuvia(R) May 13, 2023 12:13 PM [facility] 05-13-2023 History of Present illness Narrative Radiology Service Progress Note PATIENT NAME: Gee Laura DATE OF SERVICE: May 13, 2023 TIME: 12:13 PM PATIENT IDENTITY VERIFICATION COMPLETED USING TWO (2) IDENTIFIERS: Name and Date of confirmed by patient verbally. FALL SCREENING: Has the patient had 2 falls in the last year or 1 fall with injury or currently using an Ambulatory Assistive Device (Walker, Cane, Wheelchair, Crutches, etc.)? No PATIENT GENDER DATA: Female. status: : No status: NO. PATIENT RELEVANT IMPLANT DATA REVIEWED: Not Applicable RADIOLOGY DEPARTMENT: General X-ray: Exam(s) Completed: Chest X-Ray PERIPHERAL IV DATA: Not applicable SIGNED BY: RT Nuvia(R) May 13, 2023 12:13 PM documented in this encounter [facility] 05-10-2023 Miscellaneous Notes SITUATION: Mcc routine visit completed today. only patient also present during today's visit. patient reports the following: Allergies--reviewed Medications--reviewed current medications Falls--None DME-Reviewed and added to chart BACKGROUND: Reason for Home Care: pleurex drain care ASSESSMENT: SN greeted at door by patient no DME and demonstrates stable gait. Patient appears in no acute distress. Patient/CG concerns verbalized today:none Vitals (see flow sheet for details): stable SN findings today: pt pleasant. pt denies any new SOB, states, 'I am pretty good really, I can't walk too far is all. pt denies c/o pain. pt denies GI, issues. SN performed pleurex drain and drain care for pt. 50ml of clear rhett fluid drained. site without complications, but pt complaines of itching under dressing. SN sent email to pt's CM to see about recommendations for different dressing types. pt has 3 drains in home, states, I got call that more are being delievered on Saturday. pt has f/u CXR on saturday and vitrual appt on Saturday next week. See intervention summary for education details. Patient demonstrated a need for further skilled SN services for drain/tube care. Current Discharge plan: recertification RECOMMENDATION: Next visit to focus on (be specific): pleurex drain care documented in this encounter [facility] 05-06-2023 Miscellaneous Notes SITUATION: Mcc routine visit completed today. friend also present during today's visit. patient reports the following: Allergies--reviewed Medications--reviewed current medications Falls--None BACKGROUND: Reason for Home Care: pleural drain care ASSESSMENT: SN greeted at door by patient no DME and demonstrates stable gait. Patient appears in no acute distress. Patient/CG concerns verbalized today: Pt verbalizes that she has been more short of breath and had pain yesterday which did improve today. She is concnerned that decreasing the draining to twice a week has increased her sx. Vitals (see flow sheet for details): stable SN findings today: Pt is notable more short of breath today but not in acute distress. SN performed Pleurex drain procedure and obtained 100 ml of light yellow fluid which ends with light bloody fluid when draining stopped. Pt reports that she feels immediate relief. SN notes that shortness of breath at rest is improved after draining. Lungs are clear after drain. Pt would like to try draining on . Spoke with daughter who is willing to do the drain 1 x week if home health could do it twice a week. SN to contact Dr Hartmann's office with this request. See intervention summary for education details. Patient demonstrated a need for further skilled SN services for chronic disease management & education and drain/tube care. Current Discharge plan: self-care and family support RECOMMENDATION: Next visit to focus on (be specific): pleural drain, update orders. documented in this encounter [facility] 05-02-2023 Miscellaneous Notes SITUATION: Mcc routine visit completed today. room mate also present during today's visit. patient reports the following: Allergies--reviewed Medications--reviewed current medications Falls--None DME-NONE BACKGROUND: Reason for Home Care: Pleurex drain, Lung CA ASSESSMENT: SN greeted at door by patient no DME and demonstrates stable gait. Patient appears in no acute distress. Vitals (see flow sheet for details): stable SN findings today: Pt presents today in her home her room mate is present. Pleurex drain done today 75ml red clear fluids drained pt unable to tolerate additional attempts d/t pain in side. Pt reinfroced on continued monitoring and that her visits would be reduced to 2x week d/t decreased amount of fluid drainage. pt expressed understanding See intervention summary for education details. Patient demonstrated a need for further skilled SN services for chronic disease management & education, medication education, wound/skin care and drain/tube care. Current Discharge plan: self-care and family support RECOMMENDATION: Next visit to focus on (be specific): pleural drain documented in this encounter [facility] 04-29-2023 Miscellaneous Notes SITUATION: Mcc routine visit completed today. only patient also present during today's visit. patient reports the following: Allergies--reviewed Medications--reviewed current medications Falls--None DME-NONE BACKGROUND: Reason for Home Care: plurex drain, cancer ASSESSMENT: SN greeted at door by patient no DME and demonstrates stable gait. Patient appears in acute distress. Patient/CG concerns verbalized today: SOB Vitals (see flow sheet for details): stable SN findings today: Pt presenting with tachypenia and SOB upon SN arrival. pt states she just returned from getting mail so she was SOB. PulseOx is 93% in RA. Plurex draining performed removing 75mL of rhett fluid. Pt tolerated well without complication. Pulse Ox remained stable during and after procedure. SOB and tachypenia resolved after rest and draining. Pt CG performing draining independently without complication. See intervention summary for education details. Patient demonstrated a need for further skilled SN services for chronic disease management & education and safety. Current Discharge plan: self-care and family support RECOMMENDATION: Next visit to focus on (be specific): plurex drain documented in this encounter [facility] 04-29-2023 Miscellaneous Notes SN contacted Dr. Hartmann's office (Oncology.) This SN spoke with Sheryl, reported that we are getting little drainage from the Pleurx draiun like 75 or less every other day. Home health nurse is asking if we could reduce freq of Pleurx drain to 1-2 times a week or when symptomatic? SN left call back of [phone] or fax number of [phone]. documented in this encounter [facility] 04-27-2023 Note HNO ID: [id number] Author: Note, Interface Service: ? Author Type: ? Type: Progress Notes Filed: 04/27/2023 2:16 AM Note Text: Epic Scheduled Downtime: 04/27/2023 1:00:00 AM to 04/27/2023 1:28:00 AM [facility] 04-26-2023 Miscellaneous Notes This SN received a return call back, VM left from Dr. Jane's office [place], informing this SN he does not handle her Pleurx drain. Nursing will need to contact the ordering physician either oncology or PCP. documented in this encounter [facility] 04-24-2023 Miscellaneous Notes SN contacted Dr. Jane on 04/24/23 for the following: Patient is draining Pleurex drain every other day with little output noted 75 cc or less each time. CAn we reduce the frequency of draining due to decreased drainag and need? SN left a call back of [phone]. documented in this encounter [facility] 04-23-2023 Miscellaneous Notes SITUATION: Mcc routine visit completed today. only patient present during today's visit. patient reports the following: Allergies--reviewed Medications--reviewed current medications Falls--None BACKGROUND: Reason for Home Care: Pleural drain care ASSESSMENT: SN greeted at door by patient no DME and demonstrates stable gait. Patient appears in no acute distress. Patient/CG concerns verbalized today: pt reports that she is having issues with her colitis this am. Vitals (see flow sheet for details): stable SN findings today: Pt ambulating in her apt. See above pt report. Pt reports that the bowel issue is nothing new and happens intermittently. SN checked for new orders regarding frequency of Pleurex and no new orders seen yet. SN performed pleural draining and 100 ml rhett colored fluid returned. Pt did have pain at end of drain and the fluid in the tubing became blood tinged. Draining stopped at that point. Pleural drain site is clean and dry, no signs of irritation. New dressing applied after draining. Pt tolerated all well. Pt reports that she is going to be starting a new oral chemo, met with oncologist this am, she is not sure when she will start it; it will be shipped to her home once her insurance approves it. Pt reports that she has a packet of info and has reviewed that with oncology. See intervention summary for education details. Patient demonstrated a need for further skilled SN services for chronic disease management & education, safety and drain/tube care. Current Discharge plan: self-care and family support RECOMMENDATION: Next visit to focus on (be specific): Pleural drain care. CP assess. documented in this encounter [facility] 04-21-2023 Miscellaneous Notes Patient seen today for plurex drain. Patient states she has only been getting out 75 each drain. Draining schedule is for every other day. Should we change up schedule to be more days in between draining? Please let us know. thanks documented in this encounter [facility] 04-21-2023 Miscellaneous Notes SITUATION: Mcc routine visit completed today. only patient also present during today's visit. patient reports the following: Allergies--reviewed Medications--reviewed current medications Falls--None DME-Reviewed and added to chart BACKGROUND: Reason for Home Care: plurex drain ASSESSMENT: SN greeted at door by patient no DME and demonstrates stable gait. Patient appears in no acute distress. Patient/CG concerns verbalized today: none Vitals (see flow sheet for details): stable SN findings today: No new or abnormal changes today. No pain. Respirations clear and easy- patient does have a plurex on left side that is being drained every other day. patient states they have only been getting out 75ml with draining. today nurse got out 75ml with draining. nurse sent a message to physician office about changing plurex draining schedule to have more days in between each draining due to the little amount that is coming out. Waiting on a message back. Heart sounds regular. Bowel sounds in all quadrants. Patient states patients daughter is independent with plurex drain and able to do it on weekends for her when needed. Patient does not have any other questions or concerns at this time. Patient told to call office with any questions. See intervention summary for education details. Patient demonstrated a need for further skilled SN services for chronic disease management & education, medication education and drain/tube care. Current Discharge plan: self-care and family support RECOMMENDATION: Next visit to focus on (be specific): drain plurex. check to see if draining schedule has been changed documented in this encounter [facility] 04-19-2023 Miscellaneous Notes SITUATION: Mcc routine visit completed today. daughter also present during today's visit. patient reports the following: Allergies--reviewed Medications--reviewed current medications Falls--None BACKGROUND: Reason for Home Care: pleural drain care ASSESSMENT: SN greeted at door by patient no DME and demonstrates stable gait. Patient appears in no acute distress. Patient/CG concerns verbalized today: no special concerns Vitals (see flow sheet for details): stable SN findings today: Pt ambulating in the home. She reports that her breathing patterns have been about the same. Lung sounds have a few fine crackles to L base. She has a dry cough at times. Daughter did drain procedure today with no direction from SN. 75 ml clear social human services assistants rhett drainage today. Drain site is clean and intact. See intervention summary for education details. Patient demonstrated a need for further skilled SN services for chronic disease management & education, medication education and drain/tube care. Current Discharge plan: self-care and family support RECOMMENDATION: Next visit to focus on (be specific): Pleural drain care documented in this encounter [facility] 04-18-2023 Miscellaneous Notes Confirmed date and time of apts w/ patient via phone. Patient has access to [employer]. PF 05/13/2023 at [place] CXR at 8am 05/14/2023 at [facility] 4 week f/u Post Op w/ Savannah Lechuga at 9:30am documented in this encounter [facility] 04-17-2023 Miscellaneous Notes SITUATION: Mcc routine visit completed today. daughter also present during today's visit. patient reports the following: Allergies--reviewed Medications--reviewed current medications Falls--None BACKGROUND: Reason for Home Care: Pleural drain care. ASSESSMENT: SN greeted at door by patient no DME and demonstrates stable gait. Patient appears in no acute distress. Patient/CG concerns verbalized today: see SN findings Vitals (see flow sheet for details): stable SN findings today: Daughter performed pleural drain care today with SN observing. She needed little direction but used good technique, she drained 75 ml clear dark rhett fluid. Pt had daughter stop early because of sharp pain. Lung sounds are clear on R, slightly diminished to L base. Pleural drain site is clean and no signs of skin irritation. Pt reports that she has been having some difficulty swallowing and she relates it to the vocal cord issue but daughter states that pt had this problem in the past and had a esophageal stretching done. SN offered a GUIDANCE SERVICES COORDINATOR referral and pt declines, she is going to make an appt with ENT for follow up. See intervention summary for education details. Patient demonstrated a need for further skilled SN services for chronic disease management & education, medication education, safety and drain/tube care. Current Discharge plan: self-care and family support RECOMMENDATION: Next visit to focus on (be specific): Meet with daughter for another return demo of drain care. CP assessment. documented in this encounter [facility] 04-16-2023 Note HNO ID: [id number] Author: Savannah Lechuga APRN.ETIQUETTE TEACHER Service: ? Author Type: Nurse Practitioner Type: Progress Notes Filed: 04/16/2023 3:25 PM Note Text: Part of this note was copied from previous note, all content has been individually reviewed, updated as necessary, and thoroughly reviewed. [facility] - OUTPATIENT THORACIC SURGERY CLINIC NOTE PT NAME: Gee Laura [facility] NO: [id number] THORACIC SURGEON: Sharda Wesley M.D. DATE OF SERVICE: 04/16/2023 PRINCIPAL DX: left malignant pleural effusion SURGICAL HX: 10/14/2015: Right VATS pleural biopsy, drainage of effusion, intercostal nerve blocks, and mechanical and chemical pleurodesis. 02/01/2023: Left VATS pleural biopsy and drainage of effusion, talc poudrage and intercostal nerve block 04/08/2023: Left ultrasound guided Pleurx catheter placement Surgical Pathology: FINAL DIAGNOSIS 02/01/23 A. Left pleura, biopsy: - Adenosquamous cell carcinoma. REASON FOR VISIT: Post-operative visit HPI: Gee Laura is a 77 year old female former smoker (30 ppy hx; quit in 2014) . 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 For recurrent right pleural effusion underwent right VATS pleural biopsy, mechanical and chemical pleurodesis 10/2015. Left pleural effusion was first discovered on 12/01/[address] (currently on Gilortif). Underwent left thoracentesis, for which cytology showed metastatic adenocarcinoma. Surveillance CCT done in 09/2022 again showed left pleural effusion. Patient underwent left thoracentesis with 670 cc removed on 10/22/2022 cytology again positive for metastatic adenocarcinoma. Now presents for surgical drainage and pleurodesis of left pleural effusion. On 02/01/2023 underwent Left VATS pleural biopsy with Talc pleurodesis. She was discharged home 02/03/23 with a martha drain which was removed in OPD. Interval CT 03/15 showed recurrent L pleural effusion. Taken to OR on 04/08/[address] Wesley for left ultrasound guided Pleurx catheter placement. Discharged home 04/09/2023. PHYSICAL EXAM: VITAL SIGNS: BP 128/80 Pulse 98 Resp 14 Ht 156.2 cm (5' 1.5 ) Wt 55.3 kg (122 lb) SpO2 93% BMI 22.68 kg/m? Room air Incision location: Left Thoracoport sites Incision Assessment: Per Patient-Well approximated and no drainage, swelling, erythema or warmth Drain/Tubes: Left pleurex catheter IMAGING/TESTS: CXR 04/16/2023 INTERVAL HISTORY: Gee latif to clinic today for post op visit. She has been feeling fairly well. Minimal discomfort at the incision sites. She still has a hoarse voice. Plans on vocal cord injection 05/28/23. Also continues to have SOB which improves with drainage of the pleurex catheter. Pleurex has been drained MWF by home care nurse. Last 2 drainages were for 100 cc. She was drained yesterday. Pleurex again drained today for 100 cc of serosanguinous fluid. Stopped when she became uncomfortable. Insertion site is free of drainage, redness. New dressing placed. She states her daughter will be learning on how to do the drainage. She may continue draining MWF and as needed for SOB. Once output decreases, she may begin spacing out the drainage. When she is able to drain weekly for minimal amounts, we can then plan on the removal of the catheter. She has an appointment tomorrow with her local oncologist. I will fax report and CXR image. She will get a CXR in [place] in 4 weeks and we will have a phone visit next day. IMPRESSION: 77 year old female s/p Left VATS pleural biopsy and drainage of effusion, talc poudrage and intercostal nerve block 02/01/[address] Wesley for left malignant pleural effusion. Left pleurex cathter placed 04/08/23 for recurrent effusion PLAN: - continue draining Pleurex MWF - phone visit in 4 weeks - ENT management with Dr Simeon, f/u 05/28/23 for [facility] - local oncology management with Dr Hartmann -l ocal pulmonary management with Dr Buck Lechuga APRN.[facility] 04-16-2023 Note HNO ID: [id number] Author: Odette Russell RT(R) Service: Radiology Author Type: Technologist Type: Progress Notes Filed: 04/16/2023 1:52 PM Note Text: Radiology Service Progress Note PATIENT NAME: Gee Laura DATE OF SERVICE: April 16, 2023 TIME: 1:52 PM PATIENT IDENTITY VERIFICATION COMPLETED USING TWO (2) IDENTIFIERS: Name and Date of confirmed by patient verbally. FALL SCREENING: Has the patient had 2 falls in the last year or 1 fall with injury or currently using an Ambulatory Assistive Device (Walker, Cane, Wheelchair, Crutches, etc.)? No PATIENT GENDER DATA: Female. status: : No status: NO. PATIENT RELEVANT IMPLANT DATA REVIEWED: Not Applicable RADIOLOGY DEPARTMENT: General X-ray: Exam(s) Completed: Chest X-Ray PERIPHERAL IV DATA: Not applicable SIGNED BY: RT Scotty(Hawa) April 16, 2023 1:52 PM [facility] 04-16-2023 History of Present illness Narrative Radiology Service Progress Note PATIENT NAME: Gee Laura DATE OF SERVICE: April 16, 2023 TIME: 1:52 PM PATIENT IDENTITY VERIFICATION COMPLETED USING TWO (2) IDENTIFIERS: Name and Date of confirmed by patient verbally. FALL SCREENING: Has the patient had 2 falls in the last year or 1 fall with injury or currently using an Ambulatory Assistive Device (Walker, Cane, Wheelchair, Crutches, etc.)? No PATIENT GENDER DATA: Female. status: : No status: NO. PATIENT RELEVANT IMPLANT DATA REVIEWED: Not Applicable RADIOLOGY DEPARTMENT: General X-ray: Exam(s) Completed: Chest X-Ray PERIPHERAL IV DATA: Not applicable SIGNED BY: RT Scotty(Hawa) April 16, 2023 1:52 PM documented in this encounter [facility] 04-08-2023 Miscellaneous Notes Summary: CONFIRMATION CALL Welcome Home Call: DISCHARGING TOMORROW, 04/09/2023 a. Date and Time: 4:44 PM 04/08/2023 b. Contact name/relationship: Patient, Gee Laura c. Have you been active with any Home Care company in the last 60 days (such as help with bathing, filling medications, checking your blood pressure, or assistance with an exercise program)? No. d. [facility] will be providing your care, are you agreeable to starting these services? Yes e. Do you have any upcoming appointments in the next few days, or restrictions to your schedule? No f. Caregiver: Patient is able to manage care independently g. Confirmed Visited Location and preferred #: Address: [address] [place], [place] [id number] Please keep our your medications both over the counter and prescribed out for the home care to review, your hospital discharge instructions and write down any questions you might have. Ok While we focus on providing safe care, in support of this mission, we ask you to: Be respectful of our caregivers. Do not raise your voice or use profanity. You and your family/caregivers must be considerate of our organization's staff and property. Promote a safe and respectful environment. We will not tolerate any form of threatening or aggressive behaviors towards our caregiver team. This includes verbal, physical or sexual behaviors: - Examples include acts or threats of physical violence, harassment, intimidation, abusive or foul language, or other aggressive, disruptive or discriminatory behavior. Any firearms or weapons in the home must be stored and locked in a separate room from where care is taking place. Firearms or other weapons should not be easily accessible or in plain view; when available, firearms should be stored and locked in a firearm safe. - Weapons of any kind include: firearms, knives, tasers and all other things that can inflict bodily or physical harm. Pets/animals must be moved to a separate closed room or placed in a crate/cage while caregivers are in the home. (Service animals excluded). Substance Use (illegal drugs, alcohol, cigarettes) including Medical marijuana in a vaporized or inhaled form is not permitted for use by a patient or caregiver/family member while our caregivers are in the home. Taking photos or videos of our caregivers without permission is not permitted. Our clinicians will call you the night before or the morning of the appointment. Their # may come up restricted but they'll leave a VM for you. Ok In case you have any questions or concerns in the meantime, our # is [phone], option 5. Ok Thank you for your time and have a great day. Thao Gusman documented in this encounter [facility] 04-08-2023 Note HNO ID: [id number] Author: Courtney Cr MD Service: ? Author Type: Fellow Type: Anesthesia Procedure Notes Filed: 04/08/2023 9:57 AM Note Text: ANESTHESIOLOGY PROCEDURE NOTE Airway General Information Procedure Start Time/Medication Administration: 04/08/2023 9:29 AM Patient location during procedure: OR Timeout Performed Pre-procedure: timeout performed Patient identity confirmed: arm band and patient Staffing Fellow: Courtney Cr MD Indications and Patient Condition Indications for airway management: anesthesia Preoxygenated: yes anesthesia circuit Patient position: sniffing Method: asleep Cricoid Pressure: No Manual In-Line Stabilization: No Difficult Mask: No Final Airway Details Final airway type: endotracheal airway Final Endotracheal Airway: ETT - double lumen left Cuffed: yes Successful intubation technique: video laryngoscopy Devices used: intubating stylet and Sands Endotracheal tube insertion site: oral Blade: Dave Blade size: #3 ETT DL size (fr): 35 Measured from: lips Measurement (cm): 27 Placement verified by: chest auscultation Cormack-Lehane Classification: grade I - full view of glottis Number of attempts at approach: 1 Failed airway: no Unrecognized esophageal intubation: no Airway not difficult Comments Vocal cords visualized. Symmetrical. ETT passed gently without issues. SIGNATURE: Courtney Cr MD PATIENT NAME: Gee Laura DATE: April 08, 2023 TIME: 9:56 AM CSN: [id number] [facility] 04-05-2023 Note HNO ID: [id number] Author: Deavng Shrestha RN Service: ? Author Type: Registered Nurse Type: Progress Notes Filed: 04/05/2023 12:47 PM Note Text: Dr. Wesley aware of: K+= 3.3 and History of (+) Anti M antibodies. Blood bank called and per Liliana Stern anti M is NOT a reason that blood would have to be ordered from outside [facility]. Therefore, no type and screen or blood ordered for this procedure. Devang Shrestha RN [facility] 04-04-2023 Note HNO ID: [id number] Author: Sheridan Bertrand RN Service: ? Author Type: Registered Nurse Type: Progress Notes Filed: 04/04/2023 2:01 PM Note Text: Spoke with pt and answered pre-operative questions including recovery time frames and surgical schedule timing. Is patient on blood thinners:no Has patient had blood products in the last 3 months: no Is the patient on any multivitamins or supplements: yes Left Pleurex cath OR 04/08/2023 Labs closer to home 04/05 - asael same day consent/tci No other questions at this time. Sheridan COWAN, RN, PCCN-K Nurse Hydroelectric Plant Operator Thoracic Surgery [facility] 04-04-2023 History of Present illness Narrative Spoke with pt and answered pre-operative questions including recovery time frames and surgical schedule timing. Is patient on blood thinners:no Has patient had blood products in the last 3 months: no Is the patient on any multivitamins or supplements: yes Left Pleurex cath OR 04/08/2023 Labs closer to home 04/05 - asael same day consent/tci No other questions at this time. Sheridan Bertrand MSN, RN, PCCN-K Nurse Hydroelectric Plant Operator Thoracic Surgery [facility] April 02, 2023 1:10 PM - spoke to patient and offered dates of Thursday 04/05, 04/08 (once reviewed ok with dr wesley) and 04/10 for left pleurex cath placement. Pt made aware of overnight hospital stay. To call her transport and call me back with preference. Enc pt sooner than later as she notes she breathing is progressively getting more labored Sheridan Bertrand, RN documented in this encounter [facility] 04-03-2023 Note HNO ID: [id number] Author: Florentino Jameson MD Service: ? Author Type: Physician Type: Progress Notes Filed: 04/03/2023 3:01 PM Note Text: This consult is seen at the kind request of practitioner Savannah Lechuga of thoracic surgery, and my final recommendations will be communicated to the requesting health care provider by way of shared electronic medical record. This note is formatted with the impression and plan first and the history and physical to follow. IMPRESSION 77-year-old female with left vocal fold paralysis after VATS procedure. RECOMMENDATION/PLAN I recommend referring her to our price lister for vocal cord injection. I will see the patient back on as-needed basis. Chief Complaint Hoarseness History of Present Illness Gee Laura is a 77 year old female with history of left-sided lung cancer presents for evaluation of hoarseness. Patient stated that her voice became hoarse a few days after she underwent a VATS procedure in January. Patient saw an outside ENT who informed her that she has left vocal cord paralysis. Patient reports her voice being breathy and occasionally she will cough with eating. PAST MEDICAL HISTORY Diagnosis Date Colitis Contracture of palmar fascia Hepatitis unknown type Hepatitis A Lung cancer (HCC) Hx stage IIIA NSCLCa of right mid lung, s/p chemoradiation, remission since Mar 2015 Pleural effusion 08/25 AND 08/27/15 s/p U/S Guided Thoracentesis Psoriasis Skin cancer left and right side of face. Treated. Tobacco abuse Wears glasses PAST SURGICAL HISTORY Procedure Laterality Date APPENDECTOMY HX CHEMICAL PLEURODESIS Left 02/01/2023 Left VATS pleural biopsy with Talc pleurodesis CHG BRONCH DX W/WO WASH CHOLECYSTECTOMY HX HERNIA REPAIR HX HYSTERECTOMY HX total OPEN PLEURAL BIOPSY Right 10/14/2015 Right VATS pleural biopsy, drainage of effusion, intercostal nerve blocks, and mechanical and chemical pleurodesis (Doxycycline) for Lung cancer, right pleural effusion, and respiratory insufficiency PORTOCATH PLACEMENT 10/08/2014 TONSILLECTOMY HX TUBAL LIGATION HX FAMILY HISTORY Problem Relation Age of Onset other (brain surgery [Other]) Mother Uterine Cancer Mother other (liver disease [Other]) Father Alcohol/Drug Father ETOH contributed to Colon Cancer Brother Colon Cancer Brother Cancer Maternal Grandmother Cancer Paternal Grandfather CURRENT OUTPATIENT MEDICATIONS Current Outpatient Medications on File Prior to Visit Medication Sig valACYclovir (VALTREX) 500 mg tablet 1 tablet once daily. dicyclomine (BENTYL) 20 mg tablet Take 1 tablet by mouth four times daily. esomeprazole (NEXIUM) 20 mg capsule Take 2 capsules by mouth twice daily before meals. albuterol (PROVENTIL) 5 mg/mL nebu Inhale 0.5 mL as instructed four times daily as needed for wheezing/shortness of breath. by nebulizer over 5-15 minutes for wheezing and shortness of breath carvedilol (COREG) 25 mg tablet Take 1 tablet by mouth twice daily. TAKE WITH FOOD. LUMAKRAS 120 mg tablet Take 120 mg by mouth once daily. Pt taking 8 tablet daily losartan (COZAAR) 50 mg tablet Take 50 mg by mouth once daily. 06/18/22: PT NOTIFIED ME OF THIS BEING ADDED FOR ELEVATED BP. tiotropium bromide (SPIRIVA RESPIMAT) 2.5 mcg/actuation inhaler Inhale 2 Puffs as instructed once daily. albuterol sulfate (VENTOLIN INHALATION) Inhale 2 Puffs as instructed once daily. ALSO USES PRN afatinib (GILOTRIF) 30 mg tablet Take 30 mg by mouth Every 3 Days. L. paracasei/L. rhamnosus (CULTURELLE ADVANCED REGULARITY ORAL) Take by mouth once daily. VITAMIN E ACETATE ORAL Take by mouth once daily. loperamide HCl (IMODIUM ORAL) Take by mouth as needed. acetaminophen (TYLENOL) 325 mg tablet Take 2 tablets by mouth every 6 hours as needed for Pain or Fever. ibuprofen (MOTRIN) 400 mg tablet Take 1 tablet by mouth every 6 hours as needed for Pain or Fever. CALCIUM CARBONATE/VITAMIN D3 (CALCIUM + D ORAL) Take by mouth once daily. Multivitamin capsule Take 1 capsule by mouth once daily. No current facility-administered medications on file prior to visit. ALLERGIES ALLERGIES Allergen Reactions Adhesive Tape (Adrianna* Itching Ipratropium-Albuter* Hives SOB Lactose Other: See Comments Lamisil [Terbinafin* Rash, Intolerance Face and eye swelling The remainder of the patient's history and review of systems is on the outpatient questionaire which was reviewed by me and placed in the outpatient chart. PHYSICAL EXAMINATION Appearance: General examination of the patient's external face, head and neck reveals no abnormalities. The patient is not retrognathic The patient's voice is breathy and they communicate easily. Ears: Exam of the ears revealed normal appearing external auditory canals, tympanic membranes, and middle ears. No signs of infection or fluid were seen. Nose: External nasal exam was normal. Throat: There were no lesion (more content not included)... [facility] 04-03-2023 History of Present illness Narrative This consult is seen at the kind request of practitioner Savannah Lechuga of thoracic surgery, and my final recommendations will be communicated to the requesting health care provider by way of shared electronic medical record. This note is formatted with the impression and plan first and the history and physical to follow. IMPRESSION 77-year-old female with left vocal fold paralysis after VATS procedure. RECOMMENDATION/PLAN I recommend referring her to our price lister for vocal cord injection. I will see the patient back on as-needed basis. Chief Complaint Hoarseness History of Present Illness Gee Laura is a 77 year old female with history of left-sided lung cancer presents for evaluation of hoarseness. Patient stated that her voice became hoarse a few days after she underwent a VATS procedure in January. Patient saw an outside ENT who informed her that she has left vocal cord paralysis. Patient reports her voice being breathy and occasionally she will cough with eating. PAST MEDICAL HISTORY Diagnosis Date Colitis Contracture of palmar fascia Hepatitis unknown type Hepatitis A Lung cancer (HCC) Hx stage IIIA NSCLCa of right mid lung, s/p chemoradiation, remission since Mar 2015 Pleural effusion 08/25 & 08/27/15 s/p U/S Guided Thoracentesis Psoriasis Skin cancer left and right side of face. Treated. Tobacco abuse Wears glasses PAST SURGICAL HISTORY Procedure Laterality Date APPENDECTOMY HX CHEMICAL PLEURODESIS Left 02/01/2023 Left VATS pleural biopsy with Talc pleurodesis CHG BRONCH DX W/WO WASH CHOLECYSTECTOMY HX HERNIA REPAIR HX HYSTERECTOMY HX total OPEN PLEURAL BIOPSY Right 10/14/2015 Right VATS pleural biopsy, drainage of effusion, intercostal nerve blocks, and mechanical and chemical pleurodesis (Doxycycline) for Lung cancer, right pleural effusion, and respiratory insufficiency PORTOCATH PLACEMENT 10/08/2014 TONSILLECTOMY HX TUBAL LIGATION HX FAMILY HISTORY Problem Relation Age of Onset other (brain surgery [Other]) Mother Uterine Cancer Mother other (liver disease [Other]) Father Alcohol/Drug Father ETOH contributed to Colon Cancer Brother Colon Cancer Brother Cancer Maternal Grandmother Cancer Paternal Grandfather CURRENT OUTPATIENT MEDICATIONS Current Outpatient Medications on File Prior to Visit Medication Sig valACYclovir (VALTREX) 500 mg tablet 1 tablet once daily. dicyclomine (BENTYL) 20 mg tablet Take 1 tablet by mouth four times daily. esomeprazole (NEXIUM) 20 mg capsule Take 2 capsules by mouth twice daily before meals. albuterol (PROVENTIL) 5 mg/mL nebu Inhale 0.5 mL as instructed four times daily as needed for wheezing/shortness of breath. by nebulizer over 5-15 minutes for wheezing and shortness of breath carvedilol (COREG) 25 mg tablet Take 1 tablet by mouth twice daily. TAKE WITH FOOD. LUMAKRAS 120 mg tablet Take 120 mg by mouth once daily. Pt taking 8 tablet daily losartan (COZAAR) 50 mg tablet Take 50 mg by mouth once daily. 06/18/22: PT NOTIFIED ME OF THIS BEING ADDED FOR ELEVATED BP. tiotropium bromide (SPIRIVA RESPIMAT) 2.5 mcg/actuation inhaler Inhale 2 Puffs as instructed once daily. albuterol sulfate (VENTOLIN INHALATION) Inhale 2 Puffs as instructed once daily. ALSO USES PRN afatinib (GILOTRIF) 30 mg tablet Take 30 mg by mouth Every 3 Days. L. paracasei/L. rhamnosus (CULTURELLE ADVANCED REGULARITY ORAL) Take by mouth once daily. VITAMIN E ACETATE ORAL Take by mouth once daily. loperamide HCl (IMODIUM ORAL) Take by mouth as needed. acetaminophen (TYLENOL) 325 mg tablet Take 2 tablets by mouth every 6 hours as needed for Pain or Fever. ibuprofen (MOTRIN) 400 mg tablet Take 1 tablet by mouth every 6 hours as needed for Pain or Fever. CALCIUM CARBONATE/VITAMIN D3 (CALCIUM + D ORAL) Take by mouth once daily. Multivitamin capsule Take 1 capsule by mouth once daily. No current facility-administered medications on file prior to visit. ALLERGIES ALLERGIES Allergen Reactions Adhesive Tape (Adrianna* Itching Ipratropium-Albuter* Hives SOB Lactose Other: See Comments Lamisil [Terbinafin* Rash, Intolerance Face and eye swelling The remainder of the patient's history and review of systems is on the outpatient questionaire which was reviewed by me and placed in the outpatient chart. PHYSICAL EXAMINATION Appearance: General examination of the patient's external face, head and neck reveals no abnormalities. The patient is not retrognathic The patient's voice is breathy and they communicate easily. Ears: Exam of the ears revealed normal appearing external auditory canals, tympanic membranes, and middle ears. No signs of infection or fluid were seen. Nose: External nasal exam was normal. Throat: There were no lesions to visualization or palpation of the lips, cheeks, gums, floor of mouth, tongue, hard and soft palate, tonsillar pillars or posterior pharyngeal wall. The patient is a Guzmán Tongue Position 2 Neck: Palpation of the neck revealed no adenopathy, salivary gland masses or asymmetry, or thyroid masses or enlargement. Procedure Flexible laryngoscopy was performed because of the following indication: hyperactive gag and hoarseness: After spraying the nose with 4% xylocaine and 0.5% oxymetazoline, the flexible scope was placed in a transnasal fashion. The nasopharynx, oropharynx, hypopharynx including the pyriform sinuses were normal. The base of tongue showed no gross lesions. The larynx itself showed no lesions. Left vocal fold is immobile in the paramedian position. Right true vocal fold mobility is normal. Florentino Jameson MD documented in this encounter [facility] 04-02-2023 Note HNO ID: [id number] Author: Sheridan Bertrand, DUGLAS Service: ? Author Type: Registered Nurse Type: Progress Notes Filed: 04/04/2023 2:01 PM Note Text: April 02, 2023 1:10 PM - spoke to patient and offered dates of Thursday 04/05, 04/08 (once reviewed ok with dr wesley) and 04/10 for left pleurex cath placement. Pt made aware of overnight hospital stay. To call her transport and call me back with preference. Enc pt sooner than later as she notes she breathing is progressively getting more labored Sheridan Bertrand RN [facility] 03-28-2023 Note HNO ID: [id number] Author: Savannah Lechuga APRN.CNP Service: ? Author Type: Nurse Practitioner Type: Progress Notes Filed: 03/28/2023 10:57 AM Note Text: Heart, Vascular AND Thoracic [place] Department of Thoracic Surgery TELEPHONE VISIT (audio only) PROGRESS NOTE This is a telephone encounter initiated for an established patient. The patient, parent or guardian is not originating from a related Evaluation AND Management service provided within the previous 7 days nor leading to an Evaluation AND Management service or procedure within the next 24 hours or soonest available appointment. I have communicated my name and active licensure. The patient's identity and physical location were verified at the time of this visit. Either the patient or their legal insurance account representative has been informed of the risks and benefits of -- and alternatives to -- treatment through a remote evaluation and consents to proceed with the evaluation remotely. Gee Laura has consented to this telephone encounter. Persons Present: patient Total Time Spent: 21-30 minutes Savannah Lechuga APRN.ETIQUETTE TEACHER Part of this note was copied from previous note, all content has been individually reviewed, updated as necessary, and thoroughly reviewed. [facility] - OUTPATIENT THORACIC SURGERY CLINIC NOTE PT NAME: Gee Laura [facility] NO: [id number] THORACIC SURGEON: Sharda Wesley M.D. DATE OF SERVICE: 03/28/2023 PRINCIPAL DX: left malignant pleural effusion SURGICAL HX: 10/14/2015: Right VATS pleural biopsy, drainage of effusion, intercostal nerve blocks, and mechanical and chemical pleurodesis. 02/01/2023: Left VATS pleural biopsy and drainage of effusion, talc poudrage and intercostal nerve block Surgical Pathology: FINAL DIAGNOSIS 02/01/23 A. Left pleura, biopsy: - Adenosquamous cell carcinoma. REASON FOR VISIT: Post-operative visit HPI: Gee Laura is a 77 year old female former smoker (30 ppy hx; quit in 2014) . 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 For recurrent right pleural effusion underwent right VATS pleural biopsy, mechanical and chemical pleurodesis 10/2015. Left pleural effusion was first discovered on 12/01/[address] (currently on Gilortif). Underwent left thoracentesis, for which cytology showed metastatic adenocarcinoma. Surveillance CCT done in 09/2022 again showed left pleural effusion. Patient underwent left thoracentesis with 670 cc removed on 10/22/2022 cytology again positive for metastatic adenocarcinoma. Now presents for surgical drainage and pleurodesis of left pleural effusion. On 02/01/2023 underwent Left VATS pleural biopsy with Talc pleurodesis. She was discharged home 02/03/23 with a martha drain. PHYSICAL EXAM: VITAL SIGNS: There were no vitals taken for this visit. Room air Incision location: Left Thoracoport sites Incision Assessment: Per Patient-Well approximated and no drainage, swelling, erythema or warmth Drain/Tubes: NA IMAGING/TESTS: CT Chest 03/15/23 ([facility]) DICOM INTERVAL HISTORY: Gee Laura is phoned today for a post op visit. Her voice remains hoarse. 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 Will arrange this. She also continues to have a cough and SOB. Finds it difficult to walk. has been using the Albuterol nebulizer but does not find it helpful. CT scan done 03/15/23. Showed a recurrent left pleural effusion as well as worsening right pleural effusion. Will discuss with Dr Wesley . IMPRESSION: 77 year old female s/p Left VATS pleural biopsy and drainage of effusion, talc poudrage and intercostal nerve block 02/01/[address] Wesley for left malignant pleural effusion. PLAN: - ENT consult for hoarseness - discuss further treatment options with Dr Wesley - local oncology management with Dr Hartmann -local pulmonary management with Dr Buck Lechuga, ROQUE.[facility] 03-27-2023 Miscellaneous Notes Gee Laura was contacted by phone March 27, 2023. I spoke directly to patient regarding phone call appt scheduled on 03/28 to review recent scans per [employer] Mgr Request. Rubia Moe March 27, 2023 5:36 PM documented in this encounter [facility] 03-01-2023 Note HNO ID: [id number] Author: Savannah Lechuga APRN.CNP Service: ? Author Type: Nurse Practitioner Type: Progress Notes Filed: 03/01/2023 5:22 PM Note Text: Heart, Vascular AND Thoracic [place] Department of Thoracic Surgery TELEPHONE VISIT (audio only) PROGRESS NOTE This is a telephone encounter initiated for an established patient. The patient, parent or guardian is not originating from a related Evaluation AND Management service provided within the previous 7 days nor leading to an Evaluation AND Management service or procedure within the next 24 hours or soonest available appointment. I have communicated my name and active licensure. The patient's identity and physical location were verified at the time of this visit. Either the patient or their legal insurance account representative has been informed of the risks and benefits of -- and alternatives to -- treatment through a remote evaluation and consents to proceed with the evaluation remotely. Gee Laura has consented to this telephone encounter. Persons Present: patient Total Time Spent: 21-30 minutes Savannah Lechuga APRN.ETIQUETTE TEACHER Part of this note was copied from previous note, all content has been individually reviewed, updated as necessary, and thoroughly reviewed. [facility] - OUTPATIENT THORACIC SURGERY CLINIC NOTE PT NAME: Gee Laura CLINIC NO: [id number] THORACIC SURGEON: Sharda Wesley M.D. DATE OF SERVICE: 03/01/2023 PRINCIPAL DX: left malignant pleural effusion SURGICAL HX: 10/14/2015: Right VATS pleural biopsy, drainage of effusion, intercostal nerve blocks, and mechanical and chemical pleurodesis. 02/01/2023: Left VATS pleural biopsy and drainage of effusion, talc poudrage and intercostal nerve block Surgical Pathology: FINAL DIAGNOSIS 02/01/23 A. Left pleura, biopsy: - Adenosquamous cell carcinoma. REASON FOR VISIT: Post-operative visit HPI: Gee Laura is a 77 year old female former smoker (30 ppy hx; quit in 2014) . 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 For recurrent right pleural effusion underwent right VATS pleural biopsy, mechanical and chemical pleurodesis 10/2015. Left pleural effusion was first discovered on 12/01/[address] (currently on Gilortif). Underwent left thoracentesis, for which cytology showed metastatic adenocarcinoma. Surveillance CCT done in 09/2022 again showed left pleural effusion. Patient underwent left thoracentesis with 670 cc removed on 10/22/2022 cytology again positive for metastatic adenocarcinoma. Now presents for surgical drainage and pleurodesis of left pleural effusion. On 02/01/2023 underwent Left VATS pleural biopsy with Talc pleurodesis. She was discharged home 02/03/23 with a martha drain. PHYSICAL EXAM: VITAL SIGNS: There were no vitals taken for this visit. Room air Incision location: Left Thoracoport sites Incision Assessment: Well approximated and no drainage, swelling, erythema or warmth Drain/Tubes: NA GENERAL no acute distress alert and oriented x3 HEENT normocephalic, head midline, oral mucous membranes moist HEART regular rate and rhythm S1-S2 normal, no murmur LUNGS clear to auscultation bilaterally, no rhonchi rales or wheezing ABDOMEN soft nontender, nondistended. Bowel sounds active x 4 quadrants EXTREMITIES no clubbing, cyanosis or edema MUSCULOSKELETAL gait within normal limits SKIN no rashes or petechiae IMAGING/TESTS: CXR 02/28/2023: PENDING INTERVAL HISTORY: Gee Laura is phoned today for a post op visit. Her voice remains hoarse. She states she continues to have SOB with exertion. She has a non productive cough. Has been using her inhaler. Picked up nebulizer supplies yesterday, but needed to get the face mask from her daughter, who borrowed it. She has a visit scheduled next week with her PCP. He will then be able to arrange a follow up with her ENT. If unable to arrange, she will notify me and I can get a [facility] ENT consult. . She also has follow up with her oncology team next week. CXR continues to show a small opacification in mid right lung which is most likely a small loculated effusion. Appears unchanged. Small left base effusion as well. Will get a CXR in 2 weeks at [facility] and will have a phone visit next day. IMPRESSION: 77 year old female s/p Left VATS pleural biopsy and drainage of effusion, talc poudrage and intercostal nerve block 02/01/[address] Wesley for left malignant pleural effusion. PLAN: - CXR in 2 weeks at [facility], phone visit next day - follow up with local ENT for hoarseness. - local oncology management with Dr Hartmann, f/u 03/07/23 -local pulmonary management with Dr Buck Lechuga APRN.CNP [facility] 03-01-2023 History of Present illness Narrative Images from the original note were not included. Heart, Vascular & Thoracic [place] Department of Thoracic Surgery TELEPHONE VISIT (audio only) PROGRESS NOTE This is a telephone encounter initiated for an established patient. The patient, parent or guardian is not originating from a related Evaluation & Management service provided within the previous 7 days nor leading to an Evaluation & Management service or procedure within the next 24 hours or soonest available appointment. I have communicated my name and active licensure. The patient's identity and physical location were verified at the time of this visit. Either the patient or their legal insurance account representative has been informed of the risks and benefits of -- and alternatives to -- treatment through a remote evaluation and consents to proceed with the evaluation remotely. Gee aLura has consented to this telephone encounter. Persons Present: patient Total Time Spent: 21-30 minutes Savannah Lechuga APRN.ETIQUETTE TEACHER Part of this note was copied from previous note, all content has been individually reviewed, updated as necessary, and thoroughly reviewed. [facility] - OUTPATIENT THORACIC SURGERY CLINIC NOTE PT NAME: Gee Laura [facility] NO: [id number] THORACIC SURGEON: Sharda Wesley M.D. DATE OF SERVICE: 03/01/2023 PRINCIPAL DX: left malignant pleural effusion SURGICAL HX: 10/14/2015: Right VATS pleural biopsy, drainage of effusion, intercostal nerve blocks, and mechanical and chemical pleurodesis. 02/01/2023: Left VATS pleural biopsy and drainage of effusion, talc poudrage and intercostal nerve block Surgical Pathology: FINAL DIAGNOSIS 02/01/23 A. Left pleura, biopsy: - Adenosquamous cell carcinoma. REASON FOR VISIT: Post-operative visit HPI: Gee Laura is a 77 year old female former smoker (30 ppy hx; quit in 2014) . 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 For recurrent right pleural effusion underwent right VATS pleural biopsy, mechanical and chemical pleurodesis 10/2015. Left pleural effusion was first discovered on 12/01/[address] (currently on Gilortif). Underwent left thoracentesis, for which cytology showed metastatic adenocarcinoma. Surveillance CCT done in 09/2022 again showed left pleural effusion. Patient underwent left thoracentesis with 670 cc removed on 10/22/2022 cytology again positive for metastatic adenocarcinoma. Now presents for surgical drainage and pleurodesis of left pleural effusion. On 02/01/2023 underwent Left VATS pleural biopsy with Talc pleurodesis. She was discharged home 02/03/23 with a martha drain. PHYSICAL EXAM: VITAL SIGNS: There were no vitals taken for this visit. Room air Incision location: Left Thoracoport sites Incision Assessment: Well approximated and no drainage, swelling, erythema or warmth Drain/Tubes: NA GENERAL no acute distress alert and oriented x3 HEENT normocephalic, head midline, oral mucous membranes moist HEART regular rate and rhythm S1-S2 normal, no murmur LUNGS clear to auscultation bilaterally, no rhonchi rales or wheezing ABDOMEN soft nontender, nondistended. Bowel sounds active x 4 quadrants EXTREMITIES no clubbing, cyanosis or edema MUSCULOSKELETAL gait within normal limits SKIN no rashes or petechiae IMAGING/TESTS: CXR 02/28/2023: PENDING INTERVAL HISTORY: Gee Laura is phoned today for a post op visit. Her voice remains hoarse. She states she continues to have SOB with exertion. She has a non productive cough. Has been using her inhaler. Picked up nebulizer supplies yesterday, but needed to get the face mask from her daughter, who borrowed it. She has a visit scheduled next week with her PCP. He will then be able to arrange a follow up with her ENT. If unable to arrange, she will notify me and I can get a [facility] ENT consult. . She also has follow up with her oncology team next week. CXR continues to show a small opacification in mid right lung which is most likely a small loculated effusion. Appears unchanged. Small left base effusion as well. Will get a CXR in 2 weeks at [facility] and will have a phone visit next day. IMPRESSION: 77 year old female s/p Left VATS pleural biopsy and drainage of effusion, talc poudrage and intercostal nerve block 02/01/[address] Wesley for left malignant pleural effusion. PLAN: - CXR in 2 weeks at [facility], phone visit next day - follow up with local ENT for hoarseness. - local oncology management with Dr Hartmann f/u 03/07/23 -local pulmonary management with Dr Buck Lechuga APRN.ETIQUETTE TEACHER documented in this encounter [facility] 02-28-2023 Note HNO ID: [id number] Author: Fior Terrell RT(R) Service: Radiology Author Type: Technologist Type: Progress Notes Filed: 02/28/2023 8:08 AM Note Text: Radiology Service Progress Note PATIENT NAME: Gee Laura DATE OF SERVICE: February 28, 2023 TIME: 7:59 AM PATIENT IDENTITY VERIFICATION COMPLETED USING TWO (2) IDENTIFIERS: Name and Date of confirmed by patient verbally. FALL SCREENING: Has the patient had 2 falls in the last year or 1 fall with injury or currently using an Ambulatory Assistive Device (Walker, Cane, Wheelchair, Crutches, etc.)? No PATIENT GENDER DATA: Female. status: : No status: NO. PATIENT RELEVANT IMPLANT DATA REVIEWED: Not Applicable RADIOLOGY DEPARTMENT: General X-ray: Exam(s) Completed: Chest X-Ray PERIPHERAL IV DATA: Not applicable SIGNED BY: RT Adam(R) February 28, 2023 7:59 AM [facility] 02-14-2023 Note HNO ID: [id number] Author: Savannah Lechuga APRN.ETIQUETTE TEACHER Service: ? Author Type: Nurse Practitioner Type: Progress Notes Filed: 02/14/2023 9:41 AM Note Text: Part of this note was copied from previous note, all content has been individually reviewed, updated as necessary, and thoroughly reviewed. [facility] - OUTPATIENT THORACIC SURGERY CLINIC NOTE PT NAME: Gee Laura [facility] NO: [id number] THORACIC SURGEON: Sharda Wesley M.D. DATE OF SERVICE: 02/14/2023 PRINCIPAL DX: left malignant pleural effusion SURGICAL HX: 10/14/2015: Right VATS pleural biopsy, drainage of effusion, intercostal nerve blocks, and mechanical and chemical pleurodesis. 02/01/2023: Left VATS pleural biopsy and drainage of effusion, talc poudrage and intercostal nerve block Surgical Pathology: FINAL DIAGNOSIS 02/01/23 A. Left pleura, biopsy: - Adenosquamous cell carcinoma. REASON FOR VISIT: Post-operative visit HPI: Gee Laura is a 77 year old female former smoker (30 ppy hx; quit in 2014) . 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 For recurrent right pleural effusion underwent right VATS pleural biopsy, mechanical and chemical pleurodesis 10/2015. Left pleural effusion was first discovered on 12/01/[address] (currently on Gilortif). Underwent left thoracentesis, for which cytology showed metastatic adenocarcinoma. Surveillance CCT done in 09/2022 again showed left pleural effusion. Patient underwent left thoracentesis with 670 cc removed on 10/22/2022 cytology again positive for metastatic adenocarcinoma. Now presents for surgical drainage and pleurodesis of left pleural effusion. On 02/01/2023 underwent Left VATS pleural biopsy with Talc pleurodesis. She was discharged home 02/03/23 with a martha drain. PHYSICAL EXAM: VITAL SIGNS: BP 109/70 Pulse 98 Temp 36.9 ?C (98.4 ?F) (Oral) Resp 14 Ht 156.2 cm (5' 1.5 ) Wt 60.3 kg (133 lb) SpO2 94% BMI 24.72 kg/m? Room air Incision location: Left Thoracoport sites Incision Assessment: Well approximated and no drainage, swelling, erythema or warmth Drain/Tubes: NA GENERAL no acute distress alert and oriented x3 HEENT normocephalic, head midline, oral mucous membranes moist HEART regular rate and rhythm S1-S2 normal, no murmur LUNGS clear to auscultation bilaterally, no rhonchi rales or wheezing ABDOMEN soft nontender, nondistended. Bowel sounds active x 4 quadrants EXTREMITIES no clubbing, cyanosis or edema MUSCULOSKELETAL gait within normal limits SKIN no rashes or petechiae IMAGING/TESTS: CXR 02/14/2023: PENDING INTERVAL HISTORY: Gee Laura returns for post op visit and suture removal. She states that she has no pain at the incision sites. Is itchy from adhesive. Incisions are healing well. Chest tube sutures are removed. She tolerated this well. States still has SOB. Has a productive cough of mucus. Using Albuterol inhaler. Will try albuterol nebulizer. No fever or chills. Lungs are CTA. She has follow up with her local hazardous materials analyst, Dr Jane, in June. Voice is hoarse. She states this started after she came home. Notes she has reflux. On Nexium 20 mg BID. WIll increase to 40 mg BID. Has a local ENT. She will return for an evaluation of her vocal cords. If she has difficulty getting this appointment she will call and will arrange for [facility] E[facility]. CXR shows trace left pleural effusion. Noted opacification in right base of lung appears more pronounced. Will get a CXR in 2 weeks at [facility] and will have a phone visit next day. IMPRESSION: 77 year old female s/p Left VATS pleural biopsy and drainage of effusion, talc poudrage and intercostal nerve block 02/01/[address] Wesley for left malignant pleural effusion. PLAN: - Albuterol nebulizer every 6 hrs as needed - CXR in 2 weeks at [facility], phone visit next day - increase Nexium to 40 mg BID - follow up with local ENT for hoarseness. - local oncology management with Dr Hartmann, f/u 03/07/23 -local pulmonary management with Dr Buck Lechuga, ROQUE.[facility] 02-14-2023 Note HNO ID: [id number] Author: Bethanie Ziegler RT(R) Service: Radiology Author Type: Technologist Type: Progress Notes Filed: 02/14/2023 8:14 AM Note Text: Radiology Service Progress Note PATIENT NAME: Gee Laura DATE OF SERVICE: February 14, 2023 TIME: 8:14 AM PATIENT IDENTITY VERIFICATION COMPLETED USING TWO (2) IDENTIFIERS: Name and Date of confirmed by patient verbally. FALL SCREENING: Has the patient had 2 falls in the last year or 1 fall with injury or currently using an Ambulatory Assistive Device (Walker, Cane, Wheelchair, Crutches, etc.)? No PATIENT GENDER DATA: Female. status: : No status: NO. PATIENT RELEVANT IMPLANT DATA REVIEWED: Not Applicable RADIOLOGY DEPARTMENT: General X-ray: Exam(s) Completed: Chest X-Ray PERIPHERAL IV DATA: Not applicable SIGNED BY: RT Cherry(R) February 14, 2023 8:14 AM [facility] 02-14-2023 History of Present illness Narrative Images from the original note were not included. Part of this note was copied from previous note, all content has been individually reviewed, updated as necessary, and thoroughly reviewed. [facility] - OUTPATIENT THORACIC SURGERY CLINIC NOTE PT NAME: Gee Laura [facility] NO: [id number] THORACIC SURGEON: Sharda Wesley M.D. DATE OF SERVICE: 02/14/2023 PRINCIPAL DX: left malignant pleural effusion SURGICAL HX: 10/14/2015: Right VATS pleural biopsy, drainage of effusion, intercostal nerve blocks, and mechanical and chemical pleurodesis. 02/01/2023: Left VATS pleural biopsy and drainage of effusion, talc poudrage and intercostal nerve block Surgical Pathology: FINAL DIAGNOSIS 02/01/23 A. Left pleura, biopsy: - Adenosquamous cell carcinoma. REASON FOR VISIT: Post-operative visit HPI: Gee Laura is a 77 year old female former smoker (30 ppy hx; quit in 2014) . 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 For recurrent right pleural effusion underwent right VATS pleural biopsy, mechanical and chemical pleurodesis 10/2015. Left pleural effusion was first discovered on 12/01/[address] (currently on Gilortif). Underwent left thoracentesis, for which cytology showed metastatic adenocarcinoma. Surveillance CCT done in 09/2022 again showed left pleural effusion. Patient underwent left thoracentesis with 670 cc removed on 10/22/2022 cytology again positive for metastatic adenocarcinoma. Now presents for surgical drainage and pleurodesis of left pleural effusion. On 02/01/2023 underwent Left VATS pleural biopsy with Talc pleurodesis. She was discharged home 02/03/23 with a martha drain. PHYSICAL EXAM: VITAL SIGNS: BP 109/70 Pulse 98 Temp 36.9 C (98.4 F) (Oral) Resp 14 Ht 156.2 cm (5' 1.5 ) Wt 60.3 kg (133 lb) SpO2 94% BMI 24.72 kg/m Room air Incision location: Left Thoracoport sites Incision Assessment: Well approximated and no drainage, swelling, erythema or warmth Drain/Tubes: NA GENERAL no acute distress alert and oriented x3 HEENT normocephalic, head midline, oral mucous membranes moist HEART regular rate and rhythm S1-S2 normal, no murmur LUNGS clear to auscultation bilaterally, no rhonchi rales or wheezing ABDOMEN soft nontender, nondistended. Bowel sounds active x 4 quadrants EXTREMITIES no clubbing, cyanosis or edema MUSCULOSKELETAL gait within normal limits SKIN no rashes or petechiae IMAGING/TESTS: CXR 02/14/2023: PENDING INTERVAL HISTORY: Gee Laura returns for post op visit and suture removal. She states that she has no pain at the incision sites. Is itchy from adhesive. Incisions are healing well. Chest tube sutures are removed. She tolerated this well. States still has SOB. Has a productive cough of mucus. Using Albuterol inhaler. Will try albuterol nebulizer. No fever or chills. Lungs are CTA. She has follow up with her local hazardous materials analyst, Dr Jane, in June. Voice is hoarse. She states this started after she came home. Notes she has reflux. On Nexium 20 mg BID. WIll increase to 40 mg BID. Has a local ENT. She will return for an evaluation of her vocal cords. If she has difficulty getting this appointment she will call and will arrange for [facility]. CXR shows trace left pleural effusion. Noted opacification in right base of lung appears more pronounced. Will get a CXR in 2 weeks at [facility] and will have a phone visit next day. IMPRESSION: 77 year old female s/p Left VATS pleural biopsy and drainage of effusion, talc poudrage and intercostal nerve block 02/01/[address] Wesley for left malignant pleural effusion. PLAN: - Albuterol nebulizer every 6 hrs as needed - CXR in 2 weeks at [facility], phone visit next day - increase Nexium to 40 mg BID - follow up with local ENT for hoarseness. - local oncology management with Dr Hartmann, f/u 03/07/23 -local pulmonary management with Dr Buck Lechuga APRN.CNP documented in this encounter [facility] 02-14-2023 History of Present illness Narrative Radiology Service Progress Note PATIENT NAME: Gee Laura DATE OF SERVICE: February 14, 2023 TIME: 8:14 AM PATIENT IDENTITY VERIFICATION COMPLETED USING TWO (2) IDENTIFIERS: Name and Date of confirmed by patient verbally. FALL SCREENING: Has the patient had 2 falls in the last year or 1 fall with injury or currently using an Ambulatory Assistive Device (Walker, Cane, Wheelchair, Crutches, etc.)? No PATIENT GENDER DATA: Female. status: : No status: NO. PATIENT RELEVANT IMPLANT DATA REVIEWED: Not Applicable RADIOLOGY DEPARTMENT: General X-ray: Exam(s) Completed: Chest X-Ray PERIPHERAL IV DATA: Not applicable SIGNED BY: RT Cherry(R) February 14, 2023 8:14 AM documented in this encounter [facility] 02-07-2023 Note HNO ID: [id number] Author: Savannah Lechuga APRN.CNP Service: ? Author Type: Nurse Practitioner Type: Progress Notes Filed: 02/07/2023 6:23 PM Note Text: [facility] - OUTPATIENT THORACIC SURGERY CLINIC NOTE PT NAME: Gee Laura [facility] NO: [id number] THORACIC SURGEON: Sharda Wesley M.D. DATE OF SERVICE: February 07, 2023 PRINCIPAL DX: left malignant pleural effusion SURGICAL HX: 10/14/2015: Right VATS pleural biopsy, drainage of effusion, intercostal nerve blocks, and mechanical and chemical pleurodesis. 02/01/2023: Left VATS pleural biopsy and drainage of effusion, talc poudrage and intercostal nerve block Surgical Pathology: FINAL DIAGNOSIS 02/01/23 A. Left pleura, biopsy: - Adenosquamous cell carcinoma. REASON FOR VISIT: First post-operative visit HPI: Gee Laura is a 77 year old female former smoker (30 ppy hx; quit in 2014) . 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 For recurrent right pleural effusion underwent right VATS pleural biopsy, mechanical and chemical pleurodesis 10/2015. Left pleural effusion was first discovered on 12/01/[address] (currently on Gilortif). Underwent left thoracentesis, for which cytology showed metastatic adenocarcinoma. Surveillance CCT done in 09/2022 again showed left pleural effusion. Patient underwent left thoracentesis with 670 cc removed on 10/22/2022 cytology again positive for metastatic adenocarcinoma. Now presents for surgical drainage and pleurodesis of left pleural effusion. On 02/01/2023 underwent Left VATS pleural biopsy with Talc pleurodesis. She was discharged home 02/03/23 with a martha drain. PHYSICAL EXAM: VITAL SIGNS: BP 120/80 Pulse 115 Temp 36.4 ?C (97.5 ?F) (Oral) Resp 14 Ht 156.2 cm (5' 1.5 ) Wt 60.3 kg (133 lb) SpO2 97% BMI 24.72 kg/m? Room air Incision location: Left Thoracoport sites Incision Assessment: Well approximated and no drainage, swelling, erythema or warmth Drain/Tubes: left Martha drain GENERAL: well appearing, alert, no acute distress, well-hydrated, well nourished HEENT: normocephalic, midline, anicteric sclera. LUNGS: clear to auscultation, no wheezing or rhonchi HEART: RRR without murmur ABDOMEN: Soft, non-tender, non distended. No masses EXTREMITIES: No clubbing, cyanosis or edema. MUSCULOSKELETAL: Muscular strength intact. SKIN: turgor normal, no suspicious rashes or lesions NEURO: Gait normal. Sensation grossly intact. IMAGING/TESTS: CXR 02/07/2023: PENDING INTERVAL HISTORY: Gee Laura returns for first post op visit. She is feeling well today. She went to the ED 2 days ago with SOB complaint and was found to not be on all her medications. She is better today. She has had adequate pain management with the use of Tylenol. She denies any fevers, chills. No c/o nausea or vomiting. She has been tolerating diet and has been moving her bowels regularly. Incisions are healing well . Martha drain has been draining minimally and is easily removed. Purse string suture is secured. An occlusive dressing is placed to the site. She may begin showering tomorrow. We have discussed increasing aerobic activity daily, as well as maintaining weight restriction of 5-10 lbs for the first month after surgery. We have also discussed no driving while on narcotics. CXR shows well expanded lungs. 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 She will follow up with her oncology team. . She will return in 1 weeks with a CXR, and have suture removed.. IMPRESSION: 77 year old female s/p Left VATS pleural biopsy and drainage of effusion, talc poudrage and intercostal nerve block 02/01/[address] Wesley for left malignant pleural effusion. Martha removed PLAN: - return in 1 week for suture removal, CXR - oncology management with Dr Mary Kate Lechuga, SUPERVISOR [employer] SERVICE.[facility] 02-07-2023 Note HNO ID: [id number] Author: Bethanie Ziegler RT(R) Service: Radiology Author Type: Technologist Type: Progress Notes Filed: 02/07/2023 1:58 PM Note Text: Radiology Service Progress Note PATIENT NAME: Gee Laura DATE OF SERVICE: February 07, 2023 TIME: 1:57 PM PATIENT IDENTITY VERIFICATION COMPLETED USING TWO (2) IDENTIFIERS: Name and Date of confirmed by patient verbally. FALL SCREENING: Has the patient had 2 falls in the last year or 1 fall with injury or currently using an Ambulatory Assistive Device (Walker, Cane, Wheelchair, Crutches, etc.)? No PATIENT GENDER DATA: Female. status: : No status: NO. PATIENT RELEVANT IMPLANT DATA REVIEWED: Not Applicable RADIOLOGY DEPARTMENT: General X-ray: Exam(s) Completed: Chest X-Ray PERIPHERAL IV DATA: Not applicable SIGNED BY: RT Cherry(R) February 07, 2023 1:57 PM [facility] 02-07-2023 History of Present illness Narrative Images from the original note were not included. [facility] - OUTPATIENT THORACIC SURGERY CLINIC NOTE PT NAME: Gee Laura CLINIC NO: [id number] THORACIC SURGEON: Sharda Wesley M.D. DATE OF SERVICE: February 07, 2023 PRINCIPAL DX: left malignant pleural effusion SURGICAL HX: 10/14/2015: Right VATS pleural biopsy, drainage of effusion, intercostal nerve blocks, and mechanical and chemical pleurodesis. 02/01/2023: Left VATS pleural biopsy and drainage of effusion, talc poudrage and intercostal nerve block Surgical Pathology: FINAL DIAGNOSIS 02/01/23 A. Left pleura, biopsy: - Adenosquamous cell carcinoma. REASON FOR VISIT: First post-operative visit HPI: Gee Laura is a 77 year old female former smoker (30 ppy hx; quit in 2014) . 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 For recurrent right pleural effusion underwent right VATS pleural biopsy, mechanical and chemical pleurodesis 10/2015. Left pleural effusion was first discovered on 12/01/[address] (currently on Gilortif). Underwent left thoracentesis, for which cytology showed metastatic adenocarcinoma. Surveillance CCT done in 09/2022 again showed left pleural effusion. Patient underwent left thoracentesis with 670 cc removed on 10/22/2022 cytology again positive for metastatic adenocarcinoma. Now presents for surgical drainage and pleurodesis of left pleural effusion. On 02/01/2023 underwent Left VATS pleural biopsy with Talc pleurodesis. She was discharged home 02/03/23 with a martha drain. PHYSICAL EXAM: VITAL SIGNS: BP 120/80 Pulse 115 Temp 36.4 C (97.5 F) (Oral) Resp 14 Ht 156.2 cm (5' 1.5 ) Wt 60.3 kg (133 lb) SpO2 97% BMI 24.72 kg/m Room air Incision location: Left Thoracoport sites Incision Assessment: Well approximated and no drainage, swelling, erythema or warmth Drain/Tubes: left Martha drain GENERAL: well appearing, alert, no acute distress, well-hydrated, well nourished HEENT: normocephalic, midline, anicteric sclera. LUNGS: clear to auscultation, no wheezing or rhonchi HEART: RRR without murmur ABDOMEN: Soft, non-tender, non distended. No masses EXTREMITIES: No clubbing, cyanosis or edema. MUSCULOSKELETAL: Muscular strength intact. SKIN: turgor normal, no suspicious rashes or lesions NEURO: Gait normal. Sensation grossly intact. IMAGING/TESTS: CXR 02/07/2023: PENDING INTERVAL HISTORY: Gee Laura returns for first post op visit. She is feeling well today. She went to the ED 2 days ago with SOB complaint and was found to not be on all her medications. She is better today. She has had adequate pain management with the use of Tylenol. She denies any fevers, chills. No c/o nausea or vomiting. She has been tolerating diet and has been moving her bowels regularly. Incisions are healing well . Martha drain has been draining minimally and is easily removed. Purse string suture is secured. An occlusive dressing is placed to the site. She may begin showering tomorrow. We have discussed increasing aerobic activity daily, as well as maintaining weight restriction of 5-10 lbs for the first month after surgery. We have also discussed no driving while on narcotics. CXR shows well expanded lungs. 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 She will follow up with her oncology team. . She will return in 1 weeks with a CXR, and have suture removed.. IMPRESSION: 77 year old female s/p Left VATS pleural biopsy and drainage of effusion, talc poudrage and intercostal nerve block 02/01/[address] Wesley for left malignant pleural effusion. Martha removed PLAN: - return in 1 week for suture removal, CXR - oncology management with Dr Mary Kate Lechuga APRN.ETIQUETTE TEACHER documented in this encounter [facility] 02-07-2023 History of Present illness Narrative Radiology Service Progress Note PATIENT NAME: Gee Laura DATE OF SERVICE: February 07, 2023 TIME: 1:57 PM PATIENT IDENTITY VERIFICATION COMPLETED USING TWO (2) IDENTIFIERS: Name and Date of confirmed by patient verbally. FALL SCREENING: Has the patient had 2 falls in the last year or 1 fall with injury or currently using an Ambulatory Assistive Device (Walker, Cane, Wheelchair, Crutches, etc.)? No PATIENT GENDER DATA: Female. status: : No status: NO. PATIENT RELEVANT IMPLANT DATA REVIEWED: Not Applicable RADIOLOGY DEPARTMENT: General X-ray: Exam(s) Completed: Chest X-Ray PERIPHERAL IV DATA: Not applicable SIGNED BY: RT Chrery(R) February 07, 2023 1:57 PM documented in this encounter [facility] documented as of this encounter (statuses as of 02/08/2023) [facility]07-26-2023 History of Past illness Narrative* Problem Noted Date Diagnosed Date Resolved Date Tachycardia 02/06/2023 02/06/2023 documented as of this encounter (statuses as of 02/14/2023) [address]26-2023 History of Past illness Narrative* Problem Noted Date Diagnosed Date Resolved Date Tachycardia 02/06/2023 02/06/2023 documented as of this encounter (statuses as of 02/15/2023) [address]26-2023 History of Past illness Narrative* Problem Noted Date Diagnosed Date Resolved Date Tachycardia 02/06/2023 02/06/2023 documented as of this encounter (statuses as of 03/01/2023) [facility]-2023 History of Past illness Narrative* Problem Noted Date Diagnosed Date Resolved Date Tachycardia 02/06/2023 02/06/2023 documented as of this encounter (statuses as of 03/28/2023) [address]26-2023 History of Past illness Narrative* Problem Noted Date Diagnosed Date Resolved Date Tachycardia 02/06/2023 02/06/2023 documented as of this encounter (statuses as of 04/04/2023) [address]26-2023 History of Past illness Narrative* Problem Noted Date Diagnosed Date Resolved Date Tachycardia 02/06/2023 02/06/2023 documented as of this encounter (statuses as of 04/05/2023) [address]26-2023 History of Past illness Narrative* Problem Noted Date Diagnosed Date Resolved Date Tachycardia 02/06/2023 02/06/2023 documented as of this encounter (statuses as of 04/09/2023) [address]26-2023 History of Past illness Narrative* Problem Noted Date Diagnosed Date Resolved Date Tachycardia 02/06/2023 02/06/2023 documented as of this encounter (statuses as of 04/18/2023) [address]26-2023 History of Past illness Narrative* Problem Noted Date Diagnosed Date Resolved Date Tachycardia 02/06/2023 02/06/2023 documented as of this encounter (statuses as of 04/19/2023) [address]26-2023 History of Past illness Narrative* Problem Noted Date Diagnosed Date Resolved Date Tachycardia 02/06/2023 02/06/2023 documented as of this encounter (statuses as of 04/20/2023) [address]26-2023 History of Past illness Narrative* Problem Noted Date Diagnosed Date Resolved Date Tachycardia 02/06/2023 02/06/2023 documented as of this encounter (statuses as of 04/20/2023) [address]26-2023 History of Past illness Narrative* Problem Noted Date Diagnosed Date Resolved Date Tachycardia 02/06/2023 02/06/2023 documented as of this encounter (statuses as of 04/21/2023) [address]26-2023 History of Past illness Narrative* Problem Noted Date Diagnosed Date Resolved Date Tachycardia 02/06/2023 02/06/2023 documented as of this encounter (statuses as of 04/21/2023) [address]26-2023 History of Past illness Narrative* Problem Noted Date Diagnosed Date Resolved Date Tachycardia 02/06/2023 02/06/2023 documented as of this encounter (statuses as of 04/24/2023) [address]26-2023 History of Past illness Narrative* Problem Noted Date Diagnosed Date Resolved Date Tachycardia 02/06/2023 02/06/2023 documented as of this encounter (statuses as of 04/25/2023) [address]26-2023 History of Past illness Narrative* Problem Noted Date Diagnosed Date Resolved Date Tachycardia 02/06/2023 02/06/2023 documented as of this encounter (statuses as of 04/28/2023) [address]26-2023 History of Past illness Narrative* Problem Noted Date Diagnosed Date Resolved Date Tachycardia 02/06/2023 02/06/2023 documented as of this encounter (statuses as of 04/30/2023) [address]26-2023 History of Past illness Narrative* Problem Noted Date Diagnosed Date Resolved Date Tachycardia 02/06/2023 02/06/2023 documented as of this encounter (statuses as of 05/02/2023) [address]26-2023 History of Past illness Narrative* Problem Noted Date Diagnosed Date Resolved Date Tachycardia 02/06/2023 02/06/2023 documented as of this encounter (statuses as of 05/07/2023) [address]26-2023 History of Past illness Narrative* Problem Noted Date Diagnosed Date Resolved Date Tachycardia 02/06/2023 02/06/2023 documented as of this encounter (statuses as of 05/11/2023) [address]26-2023 History of Past illness Narrative* Problem Noted Date Diagnosed Date Resolved Date Tachycardia 02/06/2023 02/06/2023 documented as of this encounter (statuses as of 05/14/2023) [address]26-2023 History of Past illness Narrative* Problem Noted Date Diagnosed Date Resolved Date Tachycardia 02/06/2023 02/06/2023 documented as of this encounter (statuses as of 05/18/2023) [address]26-2023 History of Past illness Narrative* Problem Noted Date Diagnosed Date Resolved Date Tachycardia 02/06/2023 02/06/2023 documented as of this encounter (statuses as of 05/20/2023) [address]26-2023 History of Past illness Narrative* Problem Noted Date Diagnosed Date Resolved Date Tachycardia 02/06/2023 02/06/2023 documented as of this encounter (statuses as of 05/21/2023) [address]26-2023 History of Past illness Narrative* Problem Noted Date Diagnosed Date Resolved Date Tachycardia 02/06/2023 02/06/2023 documented as of this encounter (statuses as of 05/27/2023) [address]26-2023 History of Past illness Narrative* Problem Noted Date Diagnosed Date Resolved Date Tachycardia 02/06/2023 02/06/2023 documented as of this encounter (statuses as of 05/29/2023) [address]26-2023 History of Past illness Narrative* Problem Noted Date Diagnosed Date Resolved Date Tachycardia 02/06/2023 02/06/2023 documented as of this encounter (statuses as of 05/31/2023) [address]26-2023 History of Past illness Narrative* Problem Noted Date Diagnosed Date Resolved Date Tachycardia 02/06/2023 02/06/2023 documented as of this encounter (statuses as of 06/05/2023) [address]26-2023 History of Past illness Narrative* Problem Noted Date Diagnosed Date Resolved Date Tachycardia 02/06/2023 02/06/2023 documented as of this encounter (statuses as of 06/06/2023) [address]26-2023 History of Past illness Narrative* Problem Noted Date Diagnosed Date Resolved Date Tachycardia 02/06/2023 02/06/2023 documented as of this encounter (statuses as of 06/19/2023) [address]26-2023 History of Past illness Narrative* Problem Noted Date Diagnosed Date Resolved Date Tachycardia 02/06/2023 02/06/2023 documented as of this encounter (statuses as of 06/21/2023) [address]26-2023 History of Past illness Narrative* Problem Noted Date Diagnosed Date Resolved Date Tachycardia 02/06/2023 02/06/2023 documented as of this encounter (statuses as of 06/28/2023) [address]26-2023 History of Past illness Narrative* Problem Noted Date Diagnosed Date Resolved Date Tachycardia 02/06/2023 02/06/2023 documented as of this encounter (statuses as of 07/03/2023) [address]26-2023 NoteHNO ID: [id number] Author: Dany Fuller RT(R) Service: Radiology Author Type: Warehouse Freight Handler Type: Progress Notes Filed: 02/06/2023 9:32 AM Note Text: Radiology Service Progress Note PATIENT NAME: Gee Laura DATE OF SERVICE: February 06, 2023 TIME: 9:32 AM PATIENT IDENTITY VERIFICATION COMPLETED USING TWO (2) IDENTIFIERS: Name and Date of confirmed by patient verbally. FALL SCREENING: Has the patient had 2 falls in the last year or 1 fall with injury or currently using an Ambulatory Assistive Device (Walker, Cane, Wheelchair, Crutches, etc.)? Inpatient: Screened on floor PATIENT GENDER DATA: Female. status: : No status: NO. PATIENT RELEVANT IMPLANT DATA REVIEWED: Not Applicable RADIOLOGY DEPARTMENT: General X-ray: Exam(s) Completed: Chest X-Ray PERIPHERAL IV DATA: Not applicable SIGNED BY: RT Elif(R) February 06, 2023 9:32 [id number] NoteHNO ID: [id number] Author: Lore Casas RN Service: Care Management Author Type: Registered Nurse Type: Care Mgt Initial Assessment Filed: 02/06/2023 9:32 AM Note Text: CARE MANAGEMENT: ASSESSMENT AND DISCHARGE PLAN SERVICE DATE: February 06, 2023 SERVICE TIME: 9:22 AM PCP: Vlad Dennis MD Primary Contact: Extended Emergency Contact Information Primary Emergency Contact: Nirali Bhakta Address: [address] [place] [address]. [address] Mobile Relation: Daughter Admission Status: Observation Insurance Provider: MEDICARE A AND B Discharge Planning requested by: Per Department Practice Potential Transition Plans No Services Indicated Advance Directives Current Advance Directive: None Data Entry Supervisor Attempted to Assist with AD Completion: Yes Action: Education Provided Current Living Arrangements and Support Lives with: Other person(s) Pt lives with friend. currently staying with a cousin while friend out of town Type of Residence: Private Residence (House) Does the patient have to climb stairs at home?: stairs outside the home Support: Family members, Friends/neighbors How do you manage to accomplish the following: Independent: Ambulation;Bathe/Shower;Dress;Going to the bathroom;Medication Management Needs Assistance: Meals/Meal Prep;Transportation to appointments/community Current Services/Equipment Current Post-Acute Service(s): DME, Other: See Comment (currently has a chest tube in place) Current DME Type: None Discharge Planning Patient Goal(s): Be able to go home, General wellness [place] of Choice Explained: [place] of Choice Given: No Reason Not Given: No placements necessary Are you interested in bedside delivery of your medications? No Discharge Planning Participant(s): Children Patient/Family Comments: Caregiver Assessment: Caregiver is ready, willing and able to meet the patient's needs as recommended by the inter-professional team: Yes Name of Caregiver: Family and friend assist Transport at Discharge: Transportation Arrangements: Car Destination: Home Needs Prior to Discharge: Needs Prior to Discharge: Other: See Comment (medical clearance) Post-Acute Discharge Plan: Call placed to pts bedside. No answer. Reached out to daughter, Nirali. Dtr was not aware pt was currently in hospital. Dtr stated when mother was discharged from [facility], she was advised NOT to take ANY medications until drain was removed, per her mothers understanding. Pt presents with SOB. Pt is s/p surgical drainage and pleurodesis 02/01/2023 with thoracic surgery at [facility] recurrent right pleural effusion s/p right VATS pleural biopsy , mechanical and chemical pleurodesis 10/2015, left recurrent metastatic pleural effusion s/p thoracentesis 10/22/2022. Pt mainly independent. Does not drive. Lives with friend. Currently staying with cousin since friend out of town. Cousin assisting with care of drain and providing transportation. Denies financial insecurities. Pt will be discharged home today and to Follow-up with outpt oncology and thoracic surgery. Has appt this with Thoracic surgery. Will cont to follow for CM needs. SIGNATURE: Lore Casas RN PATIENT NAME: Gee Laura DATE: February 06, 2023 TIME: 9:22 AM CONTACT #: [id number] NoteHNO ID: [id number] Author: Myrtle Villalobos APRN.ETIQUETTE TEACHER Service: Thoracic Surgery Author Type: Nurse Practitioner Type: Progress Notes Filed: 02/18/2023 3:12 PM Note Text: Documentation Query Based on your medical judgment of the clinical indicators outlined below, please clarify the condition: (Please type X next to your response and sign) Date Reported: 02/05/23 (date of procedure 02/01/23) Final Diagnosis: ... Left pleura, biopsy: - adenosquamous cell carcinoma... Comment: ... immunohistochemical studies demonstrate diffuse staining for ttf-1 in the adenocarcinoma cells and negative staining in the squamous cell carcinoma... p40 study demonstrates diffuse staining in the squamous cell carcinoma and negative staining.... adenocarcinoma cells... claudin-4 stain... diffusely positive in both... adenocarcinoma and... squamous cell carcinoma... findings support... diagnosis... adenosquamous cell carcinoma... Please clarify the significance of the pathology report per path report 02/01/2023: FINAL DIAGNOSIS A. Left pleura, biopsy: - Adenosquamous cell carcinoma. Diagnosis Comment A. Immunohistochemical studies demonstrates diffuse staining for TTF-1 in the adenocarcinoma cells and negative staining in the squamous cell carcinoma. A p40 study demonstrates diffuse staining in the squamous cell carcinoma and negative staining in the adenocarcinoma cells. A claudin-4 stain is diffusely positive in both the adenocarcinoma and the squamous cell carcinoma. Overall, these findings support the diagnosis of an adenosquamous cell carcinoma. The tumor will be sent for lung molecular studies to be reported as an addendum. x I agree with the above pathology report The above pathology report is not clinically significant The above pathology report is indeterminate Other, please specify [facility]07-23-2023 NoteHNO ID: [id number] Author: Jerrod Gregg Service: Pharmacy Author Type: ? Type: Plan of Care Filed: 02/03/2023 11:59 AM Note Text: PHARMACY BEDSIDE DELIVERY SERVICE Patient Name: Gee Laura The marked outpatient medications were Filled at: [facility] and delivered to the patient's bedside to patient Medication List START taking these medications lidocaine 4 % patch Commonly known as: SALONPAS Apply 1 Patch as directed once daily for 5 days. Med update magnesium hydroxide 400 mg/5 mL suspension Commonly known as: MOM Take 30 mL by mouth once daily as needed. Med update metoprolol tartrate (short acting) 25 mg tablet Commonly known as: LOPRESSOR Take a HALF tablet by mouth every 12 hours. Med update oxyCODONE IR 5 mg immediate release tablet Commonly known as: ROXICODONE Take 1 tablet by mouth every 6 hours as needed for pain for up to 7 days. Delivered polyethylene glycol 3350 17 gram packet Take 1 Packet by mouth once daily. Dissolve dose in 4 - 8 ounces of liquid and take as directed. Delivered CHANGE how you take these medications carvedilol 25 mg tablet Commonly known as: COREG Take 1 tablet by mouth twice daily. TAKE WITH FOOD. Start taking on: March 06, 2023 What changed: These instructions start on March 06, 2023. If you are unsure what to do until then, ask your doctor or other care provider. Med update melatonin 10 mg Cap Take 1 capsule by mouth daily at bedtime. What changed: how much to take Med update CONTINUE taking these medications acetaminophen 325 mg tablet Commonly known as: TYLENOL Take 2 tablets by mouth every 6 hours as needed for Pain or Fever. afatinib 30 mg tablet Commonly known as: GILOTRIF CALCIUM + D ORAL CULTURELLE ADVANCED REGULARITY ORAL dicyclomine 20 mg tablet Commonly known as: BENTYL esomeprazole 20 mg capsule Commonly known as: NexIUM ibuprofen 400 mg tablet Commonly known as: MOTRIN Take 1 tablet by mouth every 6 hours as needed for Pain or Fever. IMODIUM ORAL losartan 50 mg tablet Commonly known as: COZAAR LUMAKRAS 120 mg tablet Generic drug: sotorasib Multivitamin capsule SPIRIVA RESPIMAT 2.5 mcg/actuation inhaler Generic drug: tiotropium bromide valACYclovir 500 mg tablet Commonly known as: VALTREX VENTOLIN INHALATION VITAMIN B COMPLEX-100 ORAL VITAMIN E ACETATE ORAL You might also be taking other medications not listed above. If you have questions about any of your other medications, talk to the person who prescribed them or your Primary Care Provider. STOP taking these medications mupirocin 2 % ointment Commonly known as: BACTROBAN Jerrod Gregg PAGER: [phone] February 03, 2023 11:58 [facility]07-23-2023 NoteHNO ID: [id number] Author: Myrtle Villalobos APRN.ETIQUETTE TEACHER Service: Thoracic Surgery Author Type: Nurse Practitioner Type: Progress Notes Filed: 02/03/2023 12:54 PM Note Text: [facility] POST-OP PROGRESS NOTE Gee Laura [id number] PRIMARY SERVICE: Thoracic Surgery - Sharda Wesley M.D. DATE OF ADMISSION: 02/01/2023 DIAGNOSIS: Malignant pleural effusion Chronological list of events during admission (Surgery in bold): 02/01/2023: SURGERY: Left VATS pleural biopsy and drainage of effusion, talc poudrage and intercostal nerve block INTERVAL EVENTS / PERTINENT ROS: Post op day #2. Left chest tube to water seal no noted air leak drained 210 cc of serous fluid yesterday. Thoracic resident at bedside to remove chest tube. Martha drain holding suction. Pain controlled. Patient with c/o nausea/vomiting this morning. Resolved with Zofran. Adequate oxygenation on room air. CXR: Small left pneumothorax TELEMETRY: ST LABS: Glucose (mg/dL) Date Value 02/03/2023 117 10/17/2015 100 Potassium (mmol/L) Date Value 02/03/2023 4.6 10/17/2015 4.3 Sodium (mmol/L) Date Value 02/03/2023 136 10/17/2015 138 Chloride (mmol/L) Date Value 02/03/2023 104 10/17/2015 102 CO2 (mmol/L) Date Value 02/03/2023 24 10/17/2015 24 Creatinine (mg/dL) Date Value 02/03/2023 0.84 10/17/2015 0.71 BUN (mg/dL) Date Value 02/03/2023 15 10/17/2015 13 Anion Gap (mmol/L) Date Value 02/03/2023 8 10/17/2015 12 Calcium (mg/dL) Date Value 10/17/2015 8.8 Calcium, Total (mg/dL) Date Value 02/03/2023 8.7 Hemoglobin (g/dL) Date Value 02/03/2023 11.3 10/17/2015 11.3 Hematocrit (%) Date Value 02/03/2023 34.3 10/17/2015 34.8 WBC (k/uL) Date Value 02/03/2023 7.75 10/17/2015 5.86 PLAN: For no air leak and low output remove chest tube Continue martha drain to bulb Discharge home today with martha drain to be removed as an outpatient ADDENDUM: Patient without nausea and no additional vomiting. Post pull CXR with tiny left pneumothorax. Left martha drain to bulb holding suction. Patient denies any shortness of breath, chest pain/pressure. Adequate oxygenation on room air. Discharge home. 12:54 PM Intake/Output Summary (Last 24 hours) at 02/03/2023 1106 Last data filed at 02/03/2023 0604 Gross per 24 hour Intake 640 ml Output 860 ml Net -220 ml PHYSICAL EXAM: Blood pressure 137/74, pulse 114, temperature 36.5 ?C (97.7 ?F), temperature source Oral, resp. rate 18, height 156.2 cm (5' 1.5 ), weight 60.2 kg (132 lb 12.8 oz), SpO2 97 %. Room air Constitutional: No acute distress HEENT: Good dentition Resp: Clear, Crackles left lower, and Respiratory effort: normal Cardiovascular: Regular rate AND rhythm GI: Soft and Non-tender Integumentary: Warm and Dry Musculoskeletal: No deformities Neurological/Psychiatric: Oriented to time, place AND person , Alert, and No gross focal neurologic deficits Additional systems reviewed: No additional systems reviewed Incisions: -Left thoracoport sites -with surgical glue, well approximated, no erythema, swelling, warmth, or drainage noted Tubes/Lines/Drains: -Left 19 Fr martha drain to bulb holding suction drained 75 cc of serous fluid yesterday HISTORY, ASSESSMENT AND PLAN: Problem Malignant Pleural Effusion History: 77 year old female former smoker (30 ppy hx; quit in 2014) . 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 For recurrent right pleural effusion underwent right VATS pleural biopsy, mechanical and chemical pleurodesis 10/2015. Left pleural effusion was first discovered on 12/01/[address] (currently on Gilortif). Underwent left thoracentesis, for which cytology showed metastatic adenocarcinoma. Surveillance CCT done in 09/2022 again showed left pleural effusion. Patient underwent left thoracentesis with 670 cc removed on 10/22/2022 cytology again positive for metastatic adenocarcinoma. Now presents for surgical drainage and pleurodesis of left pleural effusion. On 02/01/2023 underwent Left VATS pleural biopsy with Talc pleurodesis. 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 For tissue diagnosis and management, Dr. Wesley performed right VATS pleural biopsy, mechanical and chemical pleurodesis using doxycycline. Chest tube removed 10/16/15. PLAN: -Tubes: Cont (more content not included)...[facility]07-23-2023 NoteHNO ID: [id number] Author: Jerrod Gregg Service: Pharmacy Author Type: ? Type: Plan of Care Filed: 02/03/2023 8:11 AM Note Text: Insurance investigation completed Patient has active prescription insurance: Yes - Patient's insurance is in-network with [facility] Insurance loaded into [place]: Already loaded Test claim was completed to verify insurance is active: Successful Any questions, please contact your medication grievance and appeals coordinator. Pager #: [phone]23 NoteHNO ID: [id number] Author: Myrtle Villalobos APRN.CNP Service: Thoracic Surgery Author Type: Nurse Practitioner Type: Progress Notes Filed: 02/02/2023 1:39 PM Note Text: [facility] POST-OP PROGRESS NOTE eGe Laura [id number] PRIMARY SERVICE: Thoracic Surgery - Sharda Wesley M.D. DATE OF ADMISSION: 02/01/2023 DIAGNOSIS: Malignant pleural effusion Chronological list of events during admission (Surgery in bold): 02/01/2023: SURGERY: Left VATS pleural biopsy and drainage of effusion, talc poudrage and intercostal nerve block INTERVAL EVENTS / PERTINENT ROS: Post op day #1. Pain controlled. Tolerating diet. Ambulated in [place] with 1 person assist. No noted air leak in chest tube and martha holding suction. CXR: Small left pneumothorax TELEMETRY: SR LABS: Glucose (mg/dL) Date Value 02/02/2023 116 10/17/2015 100 Potassium (mmol/L) Date Value 02/02/2023 3.6 10/17/2015 4.3 Sodium (mmol/L) Date Value 02/02/2023 136 10/17/2015 138 Chloride (mmol/L) Date Value 02/02/2023 104 10/17/2015 102 CO2 (mmol/L) Date Value 02/02/2023 22 10/17/2015 24 Creatinine (mg/dL) Date Value 02/02/2023 0.99 10/17/2015 0.71 BUN (mg/dL) Date Value 02/02/2023 16 10/17/2015 13 Anion Gap (mmol/L) Date Value 02/02/2023 10 10/17/2015 12 Calcium (mg/dL) Date Value 10/17/2015 8.8 Calcium, Total (mg/dL) Date Value 02/02/2023 8.5 Hemoglobin (g/dL) Date Value 02/02/2023 11.3 10/17/2015 11.3 Hematocrit (%) Date Value 02/02/2023 34.6 10/17/2015 34.8 WBC (k/uL) Date Value 02/02/2023 9.71 10/17/2015 5.86 PLAN: Continue chest tube to -10 cm suction Martha drain to bulb suction Diet Regular Up and ambulate today in [place] Replete electrolytes PRN Intake/Output Summary (Last 24 hours) at 02/02/2023 1336 Last data filed at 02/02/2023 1308 Gross per 24 hour Intake 740 ml Output 755 ml Net -15 ml PHYSICAL EXAM: Blood pressure 113/66, pulse 99, temperature 36.2 ?C (97.2 ?F), temperature source Oral, resp. rate 16, height 156.2 cm (5' 1.5 ), weight 60.1 kg (132 lb 8 oz), SpO2 96 %. Room air Constitutional: No acute distress HEENT: Good dentition Resp: Clear, Crackles left lower, and Respiratory effort: normal Cardiovascular: Regular rate AND rhythm GI: Soft and Non-tender Integumentary: Warm and Dry Musculoskeletal: No deformities Neurological/Psychiatric: Oriented to time, place AND person , Alert, and No gross focal neurologic deficits Additional systems reviewed: No additional systems reviewed Incisions: -Left thoracoport sites -with surgical glue, well approximated, no erythema, swelling, warmth, or drainage noted Tubes/Lines/Drains: -Left 24 Fr chest tube to -20 cm suction no noted air leak drained 390 cc of serous fluid yesterday -Left 19 Fr martha drain to bulb holding suction drained 180 cc of serous fluid yesterday HISTORY, ASSESSMENT AND PLAN: Problem Malignant Pleural Effusion History: 77 year old female former smoker (30 ppy hx; quit in 2014) . 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 For recurrent right pleural effusion underwent right VATS pleural biopsy, mechanical and chemical pleurodesis 10/2015. Left pleural effusion was first discovered on 12/01/[address] (currently on Gilortif). Underwent left thoracentesis, for which cytology showed metastatic adenocarcinoma. Surveillance CCT done in 09/2022 again showed left pleural effusion. Patient underwent left thoracentesis with 670 cc removed on 10/22/2022 cytology again positive for metastatic adenocarcinoma. Now presents for surgical drainage and pleurodesis of left pleural effusion. On 02/01/2023 underwent Left VATS pleural biopsy with Talc pleurodesis. Assessment: malignant pleural effusion, s/p Left VATS Talc pleurodesis Plan: Tube: Left pleural chest tube to suction and 19f martha to bulb Diet Afib prophylaxis GI stress ulcer prophylaxis DVT prophylaxis Follow final pathology Hypertension History: Home med: Losartan 50 mg daily, Coreg 25 mg BID Assessment: Controlled on metoprolol 12.5 mg PO BID Plan: Monitor BP, Resume home meds as BP dictates Ulcerative Colitis (Hcc) History: Home med: bentyl 20 mg TID Assessment: Stable Plan: Resume home med and monitor bowel function . Pain, Postoperative, Acute History: Status post: Left VATS pleural biopsy with Talc pleurodesis on 02/01/2023 Assessment: Adequate control with fentanyl WATER PUMPING STATION ENGINEER, oxycodone 5-10 mg q6H prn, tylenol 1000mg q6H. Plan: -Continue current regimen. -Continue to re-assess pain control to keep pain level at 4 or less -Bowel regimen: Milk of magnesia BID or miralax daily, dulcolax suppository daily prn Discharge Planning Issues History: and lives in [place], [place]. Admitted 02/01/2023, underwent Talc pleurodesis for malignant pleural effusion Assessment: Ant (more content not included)...[facility] 02-01-2023 NoteHNO ID: [id number] Author: Myrtle Villalobos APRN.ETIQUETTE TEACHER Service: Thoracic Surgery Author Type: Nurse Practitioner Type: Progress Notes Filed: 02/01/2023 2:59 PM Note Text: [facility] POST-OP PROGRESS NOTE Gee Laura [id number] PRIMARY SERVICE: Thoracic Surgery - Sharda Wesley M.D. DATE OF ADMISSION: 02/01/2023 DIAGNOSIS: Malignant pleural effusion Chronological list of events during admission (Surgery in bold): 02/01/2023: SURGERY: Left VATS pleural biopsy with Talc pleurodesis INTERVAL EVENTS / PERTINENT ROS: Surgery earlier today and transferred to thoracic stepdown. OR findings: Malignant pleural effusion with pleural implants. 1800ml of pleural fluid drained. I can breath much better since surgery. CXR: Small left pneumothorax TELEMETRY: SR PLAN: Chest tube to -10 cm suction Martha drain to bulb suction Diet clear liquid Up and ambulate today in [place] Intake/Output Summary (Last 24 hours) at 02/01/2023 1430 Last data filed at 02/01/2023 1151 Gross per 24 hour Intake 1000 ml Output 250 ml Net 750 ml PHYSICAL EXAM: Blood pressure 103/64, pulse 96, temperature 36.7 ?C (98 ?F), temperature source Oral, resp. rate 19, height 156.2 cm (5' 1.5 ), weight 59.1 kg (130 lb 6.4 oz), SpO2 93 %. Room air Constitutional: No acute distress HEENT: Good dentition Resp: Clear, Crackles left lower, and Respiratory effort: normal Cardiovascular: Regular rate AND rhythm GI: Soft and Non-tender Integumentary: Warm and Dry Musculoskeletal: No deformities Neurological/Psychiatric: Oriented to time, place AND person , Alert, and No gross focal neurologic deficits Additional systems reviewed: No additional systems reviewed Incisions: -Left thoracoport sites -with surgical glue, well approximated, no erythema, swelling, warmth, or drainage noted Tubes/Lines/Drains: -Left 24 Fr chest tube to -20 cm suction no noted air leak draining sero sang fluid -Left 19 Fr martha drain to bulb holding suction draining sero sang fluid HISTORY, ASSESSMENT AND PLAN: Problem Malignant Pleural Effusion History: 77 year old female former smoker (30 ppy hx; quit in 2014) . 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 For recurrent right pleural effusion underwent right VATS pleural biopsy, mechanical and chemical pleurodesis 10/2015. Left pleural effusion was first discovered on 12/01/[address] (currently on Gilortif). Underwent left thoracentesis, for which cytology showed metastatic adenocarcinoma. Surveillance CCT done in 09/2022 again showed left pleural effusion. Patient underwent left thoracentesis with 670 cc removed on 10/22/2022 cytology again positive for metastatic adenocarcinoma. Now presents for surgical drainage and pleurodesis of left pleural effusion. On 02/01/2023 underwent Left VATS pleural biopsy with Talc pleurodesis. Assessment: malignant pleural effusion, s/p Left VATS Talc pleurodesis Plan: Tube: Left pleural chest tube to suction and 19f martha to bulb Diet Afib prophylaxis GI stress ulcer prophylaxis DVT prophylaxis Follow final pathology Hypertension History: Home med: Losartan 50 mg daily, Coreg 25 mg BID Assessment: Controlled on metoprolol 5 mg IV Plan: Monitor BP, Resume home meds as BP dictates Ulcerative Colitis (Hcc) History: Home med: bentyl 20 mg TID Assessment: Stable Plan: Resume home med and monitor bowel function . Pain, Postoperative, Acute History: Status post: Left VATS pleural biopsy with Talc pleurodesis on 02/01/2023 Assessment: Adequate control with fentanyl WATER PUMPING STATION ENGINEER, toradol 15 mg q6H, oxycodone 5-10 mg q6H prn, tylenol 1000mg q6H. Plan: -Continue current regimen. -Continue to re-assess pain control to keep pain level at 4 or less -Bowel regimen: Milk of magnesia BID or miralax daily, dulcolax suppository daily prn DAILY STEP DOWN CHECKLIST FOR CATHETER RELATED INFECTION PREVENTION CVC, PICC, Erin and/or Permacath present? No Does the patient have a urinary catheter beyond POD 2? No VTE Risk Assessment: High risk VTE Mechanical and/or Pharmacologic Prophylaxis: IPC Device, ROBIN hose, subcutaneous lovenox Labs and medications reviewed in [facility] SIGNATURE: Myrtle Villalobos APRN.ETIQUETTE TEACHER PAGER: [phone] DATE of SERVICE: February 01, 2023 TIME of SERVICE: 2:30 [facility]07-21-2023 NoteHNO ID: [id number] Author: Jam Gaines MD Service: ? Author Type: Anesthesiologist Type: Anesthesia Procedure Notes Filed: 02/01/2023 9:27 AM Note Text: ANESTHESIOLOGY PROCEDURE NOTE Airway General Information Procedure Start Time/Medication Administration: 02/01/2023 7:18 AM Patient location during procedure: OR Timeout Performed Pre-procedure: timeout performed Consent Obtained: Yes Patient identity confirmed: arm band and patient Staffing Anesthesiologist: Jam Gaines MD Resident: Jean-Paul Felix MD Performed by: resident Indications and Patient Condition Indications for airway management: anesthesia Preoxygenated: yes anesthesia circuit Patient position: sniffing Method: asleep Difficult Mask: No Final Airway Details Final airway type: endotracheal airway Final Endotracheal Airway: ETT - double lumen left Cuffed: yes Successful intubation technique: video laryngoscopy Devices used: Sands Endotracheal tube insertion site: oral Blade size: #3 ETT DL size (fr): 35 Bronchial cuff volume: 3 Measured from: lips Measurement (cm): 26 Placement verified by: capnometry Cormack-Lehane Classification: grade I - full view of glottis Number of attempts at approach: 1 Failed airway: no Unrecognized esophageal intubation: no Airway not difficult SIGNATURE: Jean-Paul Felix MD PATIENT NAME: Gee Laura DATE: February 01, 2023 TIME: 7:40 AM [facility]: [id number] Miscellaneous Notes* Telephone Encounter - Sheridan Bertrand, DUGLAS - 01/25/2023 10:26 AM EDT Images from the original note were not included. 01/24/2023 Dr Hartmann * Telephone Encounter - Neha Merlos - 01/25/2023 10:00 AM EDT Received Hem/Onc office notes 01/24/23 from [facility] Record scanned in Epic azra Jackson asst [facility] NoteHNO ID: [id number] Author: Bertin Sanderson MD Service: ? Author Type: Fellow Type: Progress Notes Filed: 01/21/2023 2:04 PM Note Text: Cardiothoracic Anesthesiology Preoperative Assessment Service Date: 01/21/2023 Service Time: 1:46 PM Primary Care Physician: Vlad Dennis MD Subjective Patient Entered Data: Scheduled procedure: Talc pleurodesis Surgeon: Maryjane Scheduled date: 02/01/2023 HPI: 77F, hx of lung cancer with recurrent malignant effusion here for pleurodesis. Recent NM stress test normal. Patient presents today for pre-operative evaluation for the above surgery. Today we discussed the anesthetic plan, what to expect, and any questions or concerns the patient may have had. We additionally discussed perioperative medications and recommended they hold their losartan prior to their surgery AND check with her oncologist regarding her cancer medications but otherwise continue their medications as prescribed. Review not taking anticoagulant/antiplatelet medication no non-cardiac IEDs present blood transfusion consented -. No resulted type AND screen to review COVID-19 Immunization Status COVID-19 VACCINE (Series Information) Completed 07/16/2022 Imm Admin: COVID-19 vaccine, age 12+ yr, bivalent ([employer]) 03/02/2022 Imm Admin: COVID-19 original vaccine, age 12+ yr, monovalent ([employer]ION[employer]nd[employer] - [facility]) 05/30/2021 Imm Admin: COVID-19 original vaccine, full dose, monovalent (MODERNA) Only the first 3 history entries have been loaded, but more history exists. The patient has the following: ACTIVE PROBLEM LIST Ulcerative Colitis (Hcc) Lung Mass Psoriasis Recurrent Pleural Effusion On Right Pain, Postoperative, Acute Mechanical Venous Thromboembolism (Vte) Prophylaxis in Place Disposition and Follow-Up History of Lung Cancer PAST MEDICAL HISTORY Diagnosis Date Colitis Contracture of palmar fascia Hepatitis unknown type Hepatitis A Lung cancer (HCC) Hx stage IIIA NSCLCa of right mid lung, s/p chemoradiation, remission since Mar 2015 Pleural effusion 08/25 AND 08/27/15 s/p U/S Guided Thoracentesis Psoriasis Skin cancer left and right side of face. Treated. Tobacco abuse Wears glasses PAST SURGICAL HISTORY Procedure Laterality Date APPENDECTOMY HX CHG BRONCH DX W/WO WASH CHOLECYSTECTOMY HX HERNIA REPAIR HX HYSTERECTOMY HX total OPEN PLEURAL BIOPSY Right 10/14/2015 Right VATS pleural biopsy, drainage of effusion, intercostal nerve blocks, and mechanical and chemical pleurodesis (Doxycycline) for Lung cancer, right pleural effusion, and respiratory insufficiency PORTOCATH PLACEMENT 10/08/2014 TUBAL LIGATION HX FAMILY HISTORY Problem Relation Age of Onset other (brain surgery [Other]) Mother Uterine Cancer Mother other (liver disease [Other]) Father Alcohol/Drug Father ETOH contributed to Colon Cancer Brother Colon Cancer Brother Cancer Maternal Grandmother Cancer Paternal Grandfather Social History Tobacco Use Smoking status: Former Packs/day: 0.75 Years: 40.00 Total pack years: 30.00 Types: Cigarettes Start date: 1973 Quit date: 08/08/2014 Years since quittin.4 Smokeless tobacco: Never Substance Use Topics Alcohol use: Yes Comment: OCCASSIONAL GLASS OF WINE Drug use: Not Currently Prior to Admission medications as of 01/21/23 1324 Medication Sig Last Dose Taking LUMAKRAS 120 mg tablet Take 120 mg by mouth once daily. Pt taking 8 tablet daily losartan (COZAAR) 50 mg tablet Take 50 mg by mouth once daily. 06/18/22: PT NOTIFIED ME OF THIS BEING ADDED FOR ELEVATED BP. valACYclovir (VALTREX) 500 mg tablet three times daily. carvedilol (COREG) 25 mg tablet Take 25 mg by mouth twice daily. TAKE WITH FOOD. Patient not taking: Reported on 01/21/2023 tiotropium bromide (SPIRIVA RESPIMAT) 2.5 mcg/actuation inhaler Inhale 2 Puffs as instructed once daily. albuterol sulfate (VENTOLIN INHALATION) Inhale 2 Puffs as instructed once daily. ALSO USES PRN afatinib (GILOTRIF) 30 mg tablet Take 30 mg by mouth Every 3 Days. L. paracasei/L. rhamnosus (CULTURELLE ADVANCED REGULARITY ORAL) Take by mouth once daily. VITAMIN E ACETATE ORAL Take by mouth once daily. loperamide HCl (IMODIUM ORAL) Take by mouth as needed. esomeprazole (NEXIUM) 20 mg capsule Take 20 mg by mouth once daily. melatonin 10 mg cap Take 10 capsules by mouth daily at bedtime. acetaminophen (TYLENOL) 325 mg tablet Take 2 tablets by mouth every 6 hours as needed for Pain or Fever. ibuprofen (MOTRIN) 400 mg tablet Take 1 tablet by mouth every 6 hours as needed for Pain or Fever. CALCIUM CARBONATE/VITAMIN D3 (CALCIUM + D ORAL) Take by mouth once daily. Multivitamin capsule Take 1 capsule by mouth once daily. VITAMIN B COMPLEX-100 ORAL Take by mouth once daily. dicyclomine (BENTYL) 20 mg tablet Take 20 mg by mouth three times daily. No medication comments found. ALLERGIES Allergen Reactions Ad (more content not included)...[facility]07-10-2023 NoteHNO ID: [id number] Author: Dacia Harrell MD Service: ? Author Type: Resident Type: Progress Notes Filed: 01/31/2023 11:20 AM Note Text: CHART COPY DO NOT DISCARD . Patient here today for TCI visit. . Surgery Left pleurodesis vs pleurex scheduled for Saturday02/01/2023. . 10/14/2015 OPERATIONS: Right VATS pleural biopsy, drainage of effusion, intercostal nerve blocks, and mechanical and chemical pleurodesis. Meds allergies reviewed. Latex Allergy: No Anticoag:Ibuprofen-last dose 01/26/2023, MVI/Supplements-last dose 01/26/2023, afatinib 01/24/2023, lumakras - 01/24/2023 Pt to call hem/onc for quit date Medport: No Preoperative instructions; NPO after midnight night prior to surgery and Listerine after brushing teeth and Hibiclens Shower. Patient verbalized understanding of instructions. . Last clinic note 12/18/2022 per Sharda Wesley M.D. IMPRESSION Malignant pleural effusion which is compromising respiratory function. I will proceed to a provocative heart study as she has not had 1 in 7 years and fully reviewed the most recent chest CT images. If there is retrievable lung, then a surgical drainage and pleurodesis would be indicated. . Today's visit 01/21/2023: CCT: 01/18/2023 - pt to have OSH send imaging able to view . PFT: 11/30/2022 FEV1 (L) 1.24 1.32 1.86 2.38 66 DLCOunc (ml/min/mmHg) 7.75 12.60 18.77 24.94 41 6MW: 11/30/2022 Distance Walked (meters) Distance Walked (feet) Female Predicted Walk Distance (feet) Female Lower Limit of Normal (feet) Female % Predicted Total Duration Of The Stops (seconds) 320.04 1050 1373.69 917.69 76.4 -- Cardiac Studies: Nuclear Medicine Stress Test 01/21/2023 CONCLUSIONS: 1. SPECT Perfusion Study: Normal. 2. There is no scintigraphic evidence for inducible ischemia. 3. No evidence of scarred myocardium. 4. Left ventricle is normal in size. The left ventricle systolic function is normal. 5. Right ventricle is normal in size. The right ventricle systolic function is normal. 6. This is a low risk scan. Gated Stress FBP Gated Rest FBP LVEF % 72 69 EK01/21/2023 Impression SINUS TACHYCARDIA OTHERWISE NORMAL ECG Risk, benefits, and alternatives discussed per Sharda Wesley M.D. HANDP 01/21/2023 per -[employer] CCT 01/18/2023- OSH . Odette Kapadia RN PHYSICAL EXAM BP 154/94 Pulse 98 Temp (Src) 97.7 (Oral) Resp 14 Ht 5' 1.5 (1.56m) Wt 133 lb (60.3kg) SpO2 97% BMI 24.73 kg/(m2). Constitutional: Well developed, Well nourished , and No acute distress HEENT: PERRLA, EOM's intact, and Good dentition Resp: Decreased breath sounds on the left and Respiratory effort: normal Cardiovascular: Regular rate AND rhythm GI: Soft and Non-tender Integumentary: Warm, Dry, and No rash on chest, arms or legs Musculoskeletal: No joint deformities Neurological/Psychiatric: Oriented to time, place AND person Additional systems reviewed: No additional [facility] of Present illness Narrative* Bertin Sanderson MD - 01/21/2023 1:46 PM EDT Cardiothoracic Anesthesiology Preoperative Assessment Service Date: 01/21/2023 Service Time: 1:46 PM Primary Care Physician: Vlad Dennis MD Subjective Patient Entered Data: Scheduled procedure: Tal[place] pleurodesis Surgeon: Maryjane Scheduled date: 02/01/2023 HPI: 77F, hx of lung cancer with recurrent malignant effusion here for pleurodesis. Recent NM stress test normal. Patient presents today for pre-operative evaluation for the above surgery. Today we discussed the anesthetic plan, what to expect, and any questions or concerns the patient may have had. We additionally discussed perioperative medications and recommended they hold their losartan prior to their surgery & check with her oncologist regarding her cancer medications but otherwise continue their medications as prescribed. Review not taking anticoagulant/antiplatelet medication no non-cardiac IEDs present blood transfusion consented -. No resulted type & screen to review COVID-19 Immunization Status COVID-19 VACCINE (Series Information) Completed 07/16/2022 Imm Admin: COVID-19 vaccine, age 12+ yr, bivalent (PFIZER-BIONTECH) 03/02/2022 Imm Admin: COVID-19 original vaccine, age 12+ yr, monovalent (PFIZER- BIONTECH - BURGOS TOP) 05/30/2021 Imm Admin: COVID-19 original vaccine, full dose, monovalent (MODERNA) Only the first 3 history entries have been loaded, but more history exists. The patient has the following: ACTIVE PROBLEM LIST Ulcerative Colitis (Hcc) Lung Mass Psoriasis Recurrent Pleural Effusion On Right Pain, Postoperative, Acute Mechanical Venous Thromboembolism (Vte) Prophylaxis in Place Disposition and Follow-Up History of Lung Cancer PAST MEDICAL HISTORY Diagnosis Date Colitis Contracture of palmar fascia Hepatitis unknown type Hepatitis A Lung cancer (HCC) Hx stage IIIA NSCLCa of right mid lung, s/p chemoradiation, remission since Mar 2015 Pleural effusion 08/25 & 08/27/15 s/p U/S Guided Thoracentesis Psoriasis Skin cancer left and right side of face. Treated. Tobacco abuse Wears glasses PAST SURGICAL HISTORY Procedure Laterality Date APPENDECTOMY HX CHG BRONCH DX W/WO WASH CHOLECYSTECTOMY HX HERNIA REPAIR HX HYSTERECTOMY HX total OPEN PLEURAL BIOPSY Right 10/14/2015 Right VATS pleural biopsy, drainage of effusion, intercostal nerve blocks, and mechanical and chemical pleurodesis (Doxycycline) for Lung cancer, right pleural effusion, and respiratory insufficiency PORTOCATH PLACEMENT 10/08/2014 TUBAL LIGATION HX FAMILY HISTORY Problem Relation Age of Onset other (brain surgery [Other]) Mother Uterine Cancer Mother other (liver disease [Other]) Father Alcohol/Drug Father ETOH contributed to Colon Cancer Brother Colon Cancer Brother Cancer Maternal Grandmother Cancer Paternal Grandfather Social History Tobacco Use Smoking status: Former Packs/day: 0.75 Years: 40.00 Total pack years: 30.00 Types: Cigarettes Start date: 1974 Quit date: 08/08/2014 Years since quittin.4 Smokeless tobacco: Never Substance Use Topics Alcohol use: Yes Comment: OCCASSIONAL GLASS OF WINE Drug use: Not Currently Prior to Admission medications as of 01/21/23 1324 Medication Sig Last Dose Taking LUMAKRAS 120 mg tablet Take 120 mg by mouth once daily. Pt taking 8 tablet daily losartan (COZAAR) 50 mg tablet Take 50 mg by mouth once daily. 06/18/22: PT NOTIFIED ME OF THIS BEING ADDED FOR ELEVATED BP. valACYclovir (VALTREX) 500 mg tablet three times daily. carvedilol (COREG) 25 mg tablet Take 25 mg by mouth twice daily. TAKE WITH FOOD. Patient not taking: Reported on 01/21/2023 tiotropium bromide (SPIRIVA RESPIMAT) 2.5 mcg/actuation inhaler Inhale 2 Puffs as instructed once daily. albuterol sulfate (VENTOLIN INHALATION) Inhale 2 Puffs as instructed once daily. ALSO USES PRN afatinib (GILOTRIF) 30 mg tablet Take 30 mg by mouth Every 3 Days. L. paracasei/L. rhamnosus (CULTURELLE ADVANCED REGULARITY ORAL) Take by mouth once daily. VITAMIN E ACETATE ORAL Take by mouth once daily. loperamide HCl (IMODIUM ORAL) Take by mouth as needed. esomeprazole (NEXIUM) 20 mg capsule Take 20 mg by mouth once daily. melatonin 10 mg cap Take 10 capsules by mouth daily at bedtime. acetaminophen (TYLENOL) 325 mg tablet Take 2 tablets by mouth every 6 hours as needed for Pain or Fever. ibuprofen (MOTRIN) 400 mg tablet Take 1 tablet by mouth every 6 hours as needed for Pain or Fever. CALCIUM CARBONATE/VITAMIN D3 (CALCIUM + D ORAL) Take by mouth once daily. Multivitamin capsule Take 1 capsule by mouth once daily. VITAMIN B COMPLEX-100 ORAL Take by mouth once daily. dicyclomine (BENTYL) 20 mg tablet Take 20 mg by mouth three times daily. No medication comments found. ALLERGIES Allergen Reactions Adhesive Tape (Adrianna* Itching Ipratropium-Albuter* Hives SOB Lactose Other: See Comments Lamisil [Terbinafin* Rash, Intolerance Face and eye swelling Objective Pain Assessment: Vitals: There were no vitals taken for this visit. Diagnostic tests reviewed for today's visit: Lab Value Units Date High Low HB No results within date range. HCT No results within date range. WBC No results within date range. PLT No results within date range. NA No results within date range. K No results within date range. GLUC No results within date range. BUN No results within date range. CREAT No results within date range. PTSEC No results within date range. INR No results within date range. APTT No results within date range. ALT No results within date range. AST No results within date range. TBILI No results within date range. TSH No results within date range. Lab Value Units Date High Low HCGQT No results within date range. UHCG No results within date range. HCG, BODY* No results within date range. Lab Value Units Date High Low ABORHD No results within date range. ABSCREEN No results within date range. No results found for: HBA1C Recent Results (from the past 8760 hour(s)) ECG COMPLETE Collection Time: 01/21/23 11:10 AM Impression SINUS TACHYCARDIA OTHERWISE NORMAL ECG XR CHEST 2V FRONTAL/LAT Collection Time: 11/30/22 10:15 AM Impression IMPRESSION: Emphysema with changes of treated malignancy and radiation fibrosis in the RIGHT perihilar region. Asymmetric irregularly marginated density in the LEFT upper lobe, suspicious for neoplastic process. Additional LEFT lung predominant indeterminate nodules noted on a prior chest CT are poorly evaluated on this radiograph. New small LEFT pleural effusion and adjacent atelectasis. Benefits Administrator: SIMRAN Transcribe Date/Time: Nov 30 2022 5:31P Dictated by : PETRA BARRAZA MD This examination was interpreted and the report reviewed and electronically signed by: PETRA BARRAZA MD on Nov 30 2022 5:35PM EST Assessment No problem-specific Assessment & Plan notes found for this encounter. ANESTHESIA FINDINGS: Intubation History: No history of difficult intubation Significant Anesthesia Considerations: Airway History: No history of difficult airway Prepared for Surgery: optimally prepared for surgery, pending day of surgery. Pleural effusion lastdrained in December 2022. The Following Tests/Procedures Have Been Initiated: Orders Placed This Encounter mupirocin (BACTROBAN) 2 % ointment Sig: Apply a small amount in each nostril using a cotton swab twice the day before surgery and oncethe morning of surgery. Dispense: 22 g Refill: 0 Order Comments: Supply patient with Q-tips and instruction sheet ASA Class: 4 Planned Anesthetic: general I - PHYSICAL EVALUATION AIRWAY Patient intubated: No. Tracheostomy tube not present Mallampati: II. TM distance: >3 FB. Neck ROM: full ROM without neurological symptoms. Mouth opening: adequate. Short neck: no. Thick neck: no DENTAL Dentures, upper: complete. Dentures, lower: complete. II - ANESTHESIA PLAN ASA Score: 4 Anesthetic Plan: general Airway type: ETT Beta Darren Monitoring Plan Post Procedure Analgesic Plan Informed Consent Anesthetic risks, benefits, alternatives, personnel and consent discussed: yes. Patient / Responsible Constitution Party agrees to proceed: yes Patient / Surrogate agrees to blood products: Yes Instructions Given to Patient: Instructions located in the after visit summary. Patient given verbal and written preop instructions and voices comprehension and compliance. Signature: Bertin Sanderson MD Patient Name: Gee Laura Date: January 21, 2023 Time: 1:46 PM Pager/Contact #: [facility] History of Present illness Narrative* Dacia Harrell MD - 01/21/2023 1:00 PM EDT CHART COPY DO NOT DISCARD . Patient here today for TCI visit. . Surgery Left pleurodesis vs pleurex scheduled for Saturday02/01/2023. . 10/14/2015 OPERATIONS: Right VATS pleural biopsy, drainage of effusion, intercostal nerve blocks, andmechanical and chemical pleurodesis. Meds allergies reviewed. Latex Allergy: No Anticoag:Ibuprofen-last dose 01/26/2023, MVI/Supplements-last dose 01/26/2023, afatinib 01/24/2023, lumakras - 01/24/2023? Pt to call hem/onc for quit date Medport: No Preoperative instructions; NPO after midnight night prior to surgery and Listerine after brushing teeth and Hibiclens Shower. Patient verbalized understanding of instructions. . Last clinic note 12/18/2022 per Sharda Wesley M.D. IMPRESSION Malignant pleural effusion which is compromising respiratory function. I will proceed to a provocative heart study as she has not had 1 in 7 years and fully reviewed the most recent chest CT images. If there is retrievable lung, then a surgical drainage and pleurodesis would be indicated. . Today's visit 01/21/2023: CCT: 01/18/2023 - pt to have OSH send imaging . PFT: 11/30/2022 FEV1 (L) 1.24 1.32 1.86 2.38 66 DLCOunc (ml/min/mmHg) 7.75 12.60 18.77 24.94 41 6MW: 11/30/2022 Distance Walked (meters) Distance Walked (feet) Female Predicted Walk Distance (feet) Female Lower Limit of Normal (feet) Female % Predicted Total Duration Of The Stops (seconds) 320.04 1050 1373.69 917.69 76.4 -- Cardiac Studies: Nuclear Medicine Stress Test 01/21/2023 CONCLUSIONS: 1. SPECT Perfusion Study: Normal. 2. There is no scintigraphic evidence for inducible ischemia. 3. No evidence of scarred myocardium. 4. Left ventricle is normal in size. The left ventricle systolic function is normal. 5. Right ventricle is normal in size. The right ventricle systolic function is normal. 6. This is a low risk scan. Gated Stress FBP Gated Rest FBP LVEF % 72 69 EK01/21/2023 Impression SINUS TACHYCARDIA OTHERWISE NORMAL ECG Risk, benefits, and alternatives discussed per Sharda Wesley M.D. H&P 01/21/2023 per [employer] CCT 01/18/2023- OSH . Odette Kapadia RN PHYSICAL EXAM There were no vitals taken for this visit. Constitutional: Well developed, Well nourished , and No acute distress HEENT: PERRLA, EOM's intact, and Good dentition Resp: Decreased breath sounds on the left and Respiratory effort: normal Cardiovascular: Regular rate & rhythm GI: Soft and Non-tender Integumentary: Warm, Dry, and No rash on chest, arms or legs Musculoskeletal: No joint deformities Neurological/Psychiatric: Oriented to time, place & person Additional systems reviewed: No additional systems reviewed documented in this encounterSam[facility]07-10-[facility]23 NoteHNO ID: [id number] Author: Sherine Tim RN Service: ? Author Type: Registered Nurse Type: Progress Notes Filed: 01/21/2023 9:15 AM Note Text: RADIOLOGY SERVICE PROGRESS NOTE SERVICE DATE: 01/21/2023 SERVICE TIME: 9:14 AM PATIENT IDENTITY VERIFICATION COMPLETED USING TWO (2) STANDARD IDENTIFIERS: Name and Date of confirmed by patient verbally and Name and Date of confirmed by identification band PATIENT GENDER DATA: female : No ALLERGIES: Reviewed and unchanged MEDICATIONS REVIEWED BY: Production Grader PROCEDURE TYPE: NM STRESS: 0.4 mg of Lexiscan was administered IV at 0913 by Sherine Tim RN. Reversal agent used: None. IV SITE: Ambulatory: A peripheral IV was started in the Left antecubital site with a Angio cath: 22 gauge. and A Saline lock was inserted per protocol POST EXAM PIV STATUS: Discontinued PATIENT DISCHARGED TO: Ambulatory patient, left NM department area. A Diagnostic radioactive procedure has taken place, with no further precautions necessary other than routine body substance precautions. More information regarding radiation safety can be found using this link: [email or web address]%[email or web address] SIGNATURE: Sherine Tim RN PATIENT NAME: Gee Laura DATE: January 21, 2023 TIME: 9:14 AM PAGER/CONTACT #:[facility]07-10-[facility]23 NoteHNO ID: [id number] Author: Raymond Pinon Nuclear [employer] Service: Nuclear Medicine Author Type: Warehouse Freight Handler Type: Progress Notes Filed: 01/21/2023 9:15 AM Note Text: RADIOLOGY SERVICE PROGRESS NOTE SERVICE DATE: 01/21/2023 SERVICE TIME: 8:13 AM PATIENT IDENTITY VERIFICATION COMPLETED USING TWO (2) STANDARD IDENTIFIERS: Name and Date of confirmed by patient verbally FALL SCREENING: Has the patient had 2 falls in the last year or 1 fall with injury or currently using an Ambulatory Assistive Device (Walker, Cane, Wheelchair, Crutches, etc.)? No PATIENT GENDER DATA: .female : No ALLERGIES: Reviewed and unchanged MEDICATIONS REVIEWED: No PATIENT RELEVANT IMPLANT DATA REVIEWED: Not Applicable CREATININE: Creatinine Date Value Ref Range Status 06/27/2022 0.94 0.58 - 0.96 mg/dL Final 10/17/2015 0.71 0.70 - 1.40 mg/dL Final 10/16/2015 0.71 0.70 - 1.40 mg/dL Final Estimated Glomerular Filtration Rate Date Value Ref Range Status 06/27/2022 63 >=60 mL/min/1.73m? Final Comment: Estimated Glomerular Filtration Rate (eGFR) is calculated using the 2020 CKD-EPI creatinine equation. This equation utilizes serum creatinine, sex, and age as parameters. The creatinine assay has traceable calibration to isotope dilution-mass spectrometry. Refer to KDIGO guidelines for clinical interpretation. In patients with unstable renal function, e.g. those with acute kidney injury, the eGFR may not accurately reflect actual GFR. eGFR- Date Value Ref Range Status 10/17/2015 >60 Final P.O.C.T. RESULTS: N/A January 21, [address] PERFORMED: No IV SITE: Ambulatory: A peripheral IV was started in the Left antecubital site with a Angio cath: 22 gauge. POST EXAM PIV STATUS: Discontinued PROCEDURE TYPE: NE Stress: 12.1 mCi [id number] was administered IV for Rest Imaging at 0810 by SURYA. 32.0 mCi [id number] was administered IV for Stress Imaging at 0913 by Raymond FIELDS. ADMINISTRATION TIME: PATIENT DISCHARGED TO: Ambulatory patient, left NE department area. A Diagnostic radioactive procedure has taken place, with no further precautions necessary other than routine body substance precautions. More information regarding radiation safety can be found using this link: [email or web address]%[email or web address] SIGNATURE: RT Chad(R) PATIENT NAME: Gee Laura DATE: January 21, 2023 TIME: 8:13 AM PAGER/CONTACT #:[facility]07-10-[facility] History of Present illness Narrative* Raymond Pinon Nuclear Tech - 01/21/2023 8:30 AM EDT RADIOLOGY SERVICE PROGRESS NOTE SERVICE DATE: 01/21/2023 SERVICE TIME: 8:13 AM PATIENT IDENTITY VERIFICATION COMPLETED USING TWO (2) STANDARD IDENTIFIERS: Name and Date of confirmed by patient verbally FALL SCREENING: Has the patient had 2 falls in the last year or 1 fall with injury or currently using an Ambulatory Assistive Device (Walker, Cane, Wheelchair, Crutches, etc.)? No PATIENT GENDER DATA: .female : No ALLERGIES: Reviewed and unchanged MEDICATIONS REVIEWED: No PATIENT RELEVANT IMPLANT DATA REVIEWED: Not Applicable CREATININE: Creatinine Date Value Ref Range Status 06/27/2022 0.94 0.58 - 0.96 mg/dL Final 10/17/2015 0.71 0.70 - 1.40 mg/dL Final 10/16/2015 0.71 0.70 - 1.40 mg/dL Final Estimated Glomerular Filtration Rate Date Value Ref Range Status 06/27/2022 63 >=60 mL/min/1.73m Final Comment: Estimated Glomerular Filtration Rate (eGFR) is calculated using the 2020 CKD-EPI creatinine equation. This equation utilizes serum creatinine, sex, and age as parameters. The creatinine assay has traceable calibration to isotope dilution- mass spectrometry. Refer to KDIGO guidelines for clinical interpretation. In patients with unstable renal function, e.g. those with acute kidney injury, the eGFRmay not accurately reflect actual GFR. eGFR- Date Value Ref Range Status 10/17/2015 >60 Final P.O.C.T. RESULTS: N/A January 21, [address] PERFORMED: No IV SITE: Ambulatory: A peripheral IV was started in the Left antecubital site with a Angio cath: 22gauge. POST EXAM PIV STATUS: Discontinued PROCEDURE TYPE: NE Stress: 12.1 mCi [id number] was administered IV for Rest Imaging at 0810 by SURYA. 32.0 mCi [id number] was administered IV for Stress Imaging at 0913 by Raymond Pinon [facility]. ADMINISTRATION TIME: PATIENT DISCHARGED TO: Ambulatory patient, left [place] department area. A Diagnostic radioactive procedure has taken place, with no further precautions necessary other than routine body substance precautions. More information regarding radiation safety can be found usingthis link: [email or web address] 20Diagnostic%20Nuclear%20Medicine%20Procedures.pdf SIGNATURE: RT Chad(R) PATIENT NAME: Gee Laura DATE: January 21, 2023 TIME: 8:13 AM PAGER/CONTACT #: * Sherine Tim RN - 01/21/2023 8:30 AM EDT RADIOLOGY SERVICE PROGRESS NOTE SERVICE DATE: 01/21/2023 SERVICE TIME: 9:14 AM PATIENT IDENTITY VERIFICATION COMPLETED USING TWO (2) STANDARD IDENTIFIERS: Name and Date of confirmed by patient verbally and Name and Date of confirmed by identification band PATIENT GENDER DATA: female : No ALLERGIES: Reviewed and unchanged MEDICATIONS REVIEWED BY: Production Grader PROCEDURE TYPE: NM STRESS: 0.4 mg of Lexiscan was administered IV at 0913 by Sherine Tim RN. Reversal agent used: None. IV SITE: Ambulatory: A peripheral IV was started in the Left antecubital site with a Angio cath: 22gauge. and A Saline lock was inserted per protocol POST EXAM PIV STATUS: Discontinued PATIENT DISCHARGED TO: Ambulatory patient, left NM department area. A Diagnostic radioactive procedure has taken place, with no further precautions necessary other than routine body substance precautions. More information regarding radiation safety can be found usingthis link: [email or web address] 20Diagnostic%20Nuclear%20Medicine%20Procedures.pdf SIGNATURE: Sherine Tim RN PATIENT NAME: Gee Laura DATE: January 21, 2023 TIME: 9:14 AM PAGER/CONTACT #: documented in this encounterSam[facility]06-23-2023 NoteHNO ID: [id number] Author: Sheridan Bertrand RN Service: ? Author Type: Registered Nurse Type: Progress Notes Filed: 01/04/2023 11:04 AM Note Text: January 04, 2023 11:04 AM - called and left a message on the nurse line to follow up on holding of oral chemotherapy medications, await call back Sheridan Bertrand [facility]NC[facility]-16-[facility]23 NoteHNO ID: [id number] Author: Sheridan Bertrand RN Service: ? Author Type: Registered Nurse Type: Progress Notes Filed: 12/28/2022 3:58 PM Note Text: Spoke with pt and answered pre-operative questions including recovery time frames and surgical schedule timing. Is patient on blood thinners:no Has patient had blood products in the last 3 months: no Is the patient on any multivitamins or supplements: yes Pt on oral chemotherapy GILOTRIF - called Dr Hartmann office local oncologist to check on hold times - [phone] Spoke with Bora ARDON who will speak with oncology team and get back to me. VATS pleurodesis vs pleurex OR 02/01/2023 TCI with stress, local CT scan 01/21 [facility]ael need to call to get imaging hold mvi/supplements 7 days prior to OR No other questions at this time. Sheridan Bertrand MSN, RN, PCCN-K Nurse Hydroelectric Plant Operator Thoracic [facility] History of Present illness Narrative* Sheridan Bertrand RN - 12/28/2022 3:50 PM EDT Spoke with pt and answered pre-operative questions including recovery time frames and surgical schedule timing. Is patient on blood thinners:no Has patient had blood products in the last 3 months: no Is the patient on any multivitamins or supplements: yes Pt on oral chemotherapy GILOTRIF - called Dr Hartmann office local oncologist to check on hold times - [phone] Spoke with Bora ARDON who will speak with oncology team and get back to me. VATS pleurodesis vs pleurex OR 02/01/2023 TCI with stress, local CT scan 01/21 asael need to call to get imaging hold mvi/supplements 7 days prior to OR No other questions at this time. Sheridan COWAN, RN, PCCN-K Nurse Hydroelectric Plant Operator [facility] * Sheridan Bertrand RN - 12/25/2022 3:35 PM EDT email sent to linux admin engineer to obtaine current CT chest and CXR imaging for Dr Wesley to review, cards notes and heart studies in the past year from [place], await updates Sheridan Bertrand RN documented in this encounterSamaritan Hospital06-15-2023 Miscellaneous Notes* Telephone Encounter - Neha Merlos - 12/27/2022 1:33 PM EDT Records and Imaging received and available for review. azra Jackson asst * Telephone Encounter - Neha Merlos - 12/26/2022 9:06 AM EDT Received Stress Test, Cardiology Office Notes, Echo Reports from [facility]. Received imaging reports from [facility] Records scanned in Epic azra Jackson asst * Telephone Encounter - Neha Merlos - 12/25/2022 3:57 PM EDT Attempt #1 Requested Cardiology Office Note and Stress Test from [facility] Spoke to: Phuong Phone #: [phone], records are being faxed CT Chest, CXR, Thoracentesis, MRI Brain Radiology Imaging from [facility] Spoke to: Radiology Phone #: [phone], images being sent via electronic transfer Neha Merlos December 25, 2022 3:58 PM documented in this encounterSam[facility]06-[facility]-2023 NoteHNO ID: [id number] Author: Sheridan Bertrand RN Service: ? Author Type: Registered Nurse Type: Progress Notes Filed: 12/28/2022 3:58 PM Note Text: email sent to linux admin engineer to obtaine current CT chest and CXR imaging for Dr Wesley to review, cards notes and heart studies in the past year from [facility], await updates [facility]idan Bertrand [facility] NoteHNO ID: [id number] Author: Sharda Wesley MD, PhD Service: ? Author Type: Physician Type: Progress Notes Filed: 12/18/2022 12:53 PM Note Text: [facility] STAFF PHYSICIAN NOTE OF PERSONAL INVOLVEMENT IN CARE I have reviewed the documentation obtained and documented by the Nurse Practitioner and I have personally performed the substantive portion of the visit which includes the medical decision making. I have discussed the case and management of the patient's care. I wish to add the following findings which have been dictated and will be communicated back to the requesting physician. STAFF PHYSICIAN: Sharda Wesley MD, PhD DATE OF SERVICE: December 18, 2022 TIME OF SERVICE: 12:43 [facility] NoteHNO ID: [id number] Author: Rhianna Dumont APRN.CNP Service: ? Author Type: Nurse Practitioner Type: Progress Notes Filed: 12/18/2022 12:53 PM Note Text: [facility] THORACIC SURGERY OUTPATIENT CONSULT NOTE Gee Laura [id number] Requesting Provider: Chikis Jane MD Thoracic Physician: Sharda Wesley MD Chief Complaint: Left Malignant Pleural Effusion Impression: Gee Laura is a 77 year old female former smoker (30 ppy hx; quit in 2014) referred by Chikis Jane MD for an opinion regarding management of left Pleural Effusion. Past medical history significant for Stage IV Adenocarcinoma of RUL s/p INSPECTOR PAWNSHOP DETAIL in 2014 with metastatic left pleural effusion in 11/2020 (currently on Gilortif), right pleural effusion s/p R VATS pleural biopsy, mechanical and chemical pleurodesis in 11/2015. Left pleural effusion was first discovered on 12/01/[address] Patient underwent left thoracentesis, for which cytology showed metastatic adenocarcinoma. 05/2021 CCT showed resolution of left pleural effusion and decreasing lung nodules. Surveillance CCT done in 09/2022 showed left pleural effusion. Patient underwent left thoracentesis with 670 cc removed on 10/22/2022 with post-procedure CXR revealing near complete resolution of left pleural effusion. Cytology again positive for metastatic adenocarcinoma. CXR on 11/30/2022 shows small left pleural effusion with adjacent atelectasis Plan: -Discussed in collaboration with and further plans to follow from Dr. Wesley. HPI: Gee Laura is a 77 year old female former smoker (30 ppy hx; quit in 2014) referred by Chikis Jane MD for an opinion regarding management of left Pleural Effusion. Past medical history significant for Stage IV Adenocarcinoma of RUL s/p INSPECTOR PAWNSHOP DETAIL in 2014 with metastatic left pleural effusion in 11/2020 (currently on Gilortif), right pleural effusion s/p R VATS pleural biopsy, mechanical and chemical pleurodesis in 11/2015, COPD, Raynaud's, PE in 2014, Hepatitis A, and psoriasis. Left pleural effusion was first discovered on 12/01/[address] Patient underwent left thoracentesis, for which cytology showed metastatic adenocarcinoma. 05/2021 CCT showed resolution of left pleural effusion and decreasing lung nodules. Surveillance CCT done in 09/2022 showed left pleural effusion. Patient underwent left thoracentesis with 670 cc removed on 10/22/2022 with post-procedure CXR revealing near complete resolution of left pleural effusion. Cytology again positive for metastatic adenocarcinoma. Follow-up CXR on 11/08/2022 showed a moderate left lower lobe infiltrate and left pleural effusion. Most recent CXR on 11/30/2022 shows small left pleural effusion with adjacent atelectasis. Patient denies any unintentional weight loss or chest pain. Notes SOB if walking too fast or unloading groceries from car. Notes that she had a cough that has resolved. (document at least 4 of these elements) Location: Left Quality: constant Timing: Recurrent on 09/2022 CCT Associated signs and symptoms: MOONEY ECOG Score: 0 Living arrangement: Lives with family/friend Functional status: Independent Unintentional weight loss over last 3 months: No PAST MEDICAL HISTORY: PAST MEDICAL HISTORY Diagnosis Date Contracture of palmar fascia Hepatitis unknown type Hepatitis A Lung cancer (HCC) Hx stage IIIA NSCLCa of right mid lung, s/p chemoradiation, remission since Mar 2015 Pleural effusion 08/25 AND 08/27/15 s/p U/S Guided Thoracentesis Psoriasis Skin cancer left and right side of face. Treated. Tobacco abuse Ulcerative colitis (HCC) Wears glasses PAST SURGICAL HISTORY: PAST SURGICAL HISTORY Procedure Laterality Date APPENDECTOMY HX CHG BRONCH DX W/WO WASH CHOLECYSTECTOMY HX HERNIA REPAIR HX HYSTERECTOMY HX total OPEN PLEURAL BIOPSY Right 10/14/2015 Right VATS pleural biopsy, drainage of effusion, intercostal nerve blocks, and mechanical and chemical pleurodesis (Doxycycline) for Lung cancer, right pleural effusion, and respiratory insufficiency PORTOCATH PLACEMENT 10/08/2014 REMOVAL OF LUNG,LOBECTOMY Right 10/14/2015 TUBAL LIGATION HX FAMILY HISTORY: FAMILY HISTORY Problem Relation Age of Onset other (liver disease [Other]) Father other (brain surgery [Other]) Mother Colon Cancer Brother Colon Cancer Brother Cancer Maternal Grandmother Alcohol/Drug Father ETOH contributed to SOCIAL HISTORY: Social History Tobacco Use Smoking status: Former Packs/day: 0.75 Years: 40.00 Pack years: 30.00 Types: Cigarettes Start date: 1974 Quit date: 08/08/2014 Years since quittin.3 Smokeless tobacco: Never Substance Use Topics Alcohol use: Yes Comment: OCCASSIONAL GLASS OF WINE Drug use: Not Currently MEDICATIONS: Prior to Admission Medications: losartan (COZAAR) 50 mg tablet Take 50 mg by mouth once daily. 06/18/22 (more content not included)...[facility]06-06-2023 History of Present illness Narrative* Sharda Wesley MD, PhD - 12/18/2022 12:43 PM EDT [facility] STAFF PHYSICIAN NOTE OF PERSONAL INVOLVEMENT IN CARE I have reviewed the documentation obtained and documented by the Nurse Practitioner and I have personally performed the substantive portion of the visit which includes the medical decision making. I have discussed the case and management of the patient's care. I wish to add the following findings which have been dictated and will be communicated back to the requesting physician. STAFF PHYSICIAN: Sharda Wesley MD, PhD DATE OF SERVICE: December 18, 2022 TIME OF SERVICE: 12:43 PM * Rhianna Dumont APRN.ETIQUETTE TEACHER - 12/18/2022 12:20 PM EDT [facility] THORACIC SURGERY OUTPATIENT CONSULT NOTE Gee Laura [id number] Requesting Provider: Chikis Jane MD Thoracic Physician: Sharda Wesley MD Chief Complaint: Left Malignant Pleural Effusion Impression: Gee Laura is a 77 year old female former smoker (30 ppy hx; quit in 2014) referred by Chikis Jane MD for an opinion regarding management of left Pleural Effusion. Past medicalhistory significant for Stage IV Adenocarcinoma of RUL s/p INSPECTOR PAWNSHOP DETAIL in 2014 with metastatic left pleuraleffusion in 11/2020 (currently on Gilortif), right pleural effusion s/p R VATS pleural biopsy, mechanical and chemical pleurodesis in 11/2015. Left pleural effusion was first discovered on 12/01/[address] Patient underwent left thoracentesis, for which cytology showed metastatic adenocarcinoma. 05/2021 CCT showed resolution of left pleural effusion and decreasing lung nodules. Surve illance CCT done in 09/2022 showed left pleural effusion. Patient underwent left thoracentesis with 670 cc removed on 10/22/2022 with post-procedure CXR revealing near complete resolution of left pleural effusion. Cytology again positive for metastatic adenocarcinoma. CXR on 11/30/2022 shows small left pleural effusion with adjacent atelectasis Plan: -Discussed in collaboration with and further plans to follow from Dr. Wesley. HPI: Gee Laura is a 77 year old female former smoker (30 ppy hx; quit in 2014) referred by Chikis Jane MD for an opinion regarding management of left Pleural Effusion. Past medical history significant for Stage IV Adenocarcinoma of RUL s/p INSPECTOR PAWNSHOP DETAIL in 2014 with metastatic left pleural effusion in 11/2020 (currently on Gilortif), right pleural effusion s/p R VATS pleural biopsy, mechanical and chemical pleurodesis in 11/2015, COPD, Raynaud's, PE in 2014, Hepatitis A, and psoriasis. Left pleural effusion was first discovered on 12/01/[address] Patient underwent left thoracentesis, for which cytology showed metastatic adenocarcinoma. 05/2021 CCT showed resolution of left pleural effusion and decreasing lung nodules. Surveillance CCT done in 09/2022 showed left pleural effusion. Patient underwent left thoracentesis with 670 cc removed on 10/22/2022 with post-procedure CXR revealing near complete resolution of left pleural effusion. Cytology again positive for metastatic adenocarcinoma. Follow-up CXR on 11/08/2022 showed a moderate left lower lobe infiltrate and left pleural effusion. Most recent CXR on 11/30/2022 shows small left pleural effusion with adjacent atelectasis. Patient denies any unintentional weight loss or chest pain. Notes SOB if walking too fast or unloading groceries from car. Notes that she had a cough that has resolved. (document at least 4 of these elements) Location: Left Quality: constant Timing: Recurrent on 09/2022 CCT Associated signs and symptoms: MOONEY ECOG Score: 0 Living arrangement: Lives with family/friend Functional status: Independent Unintentional weight loss over last 3 months: No PAST MEDICAL HISTORY: PAST MEDICAL HISTORY Diagnosis Date Contracture of palmar fascia Hepatitis unknown type Hepatitis A Lung cancer (HCC) Hx stage IIIA NSCLCa of right mid lung, s/p chemoradiation, remission since Mar 2015 Pleural effusion 08/25 & 08/27/15 s/p U/S Guided Thoracentesis Psoriasis Skin cancer left and right side of face. Treated. Tobacco abuse Ulcerative colitis (HCC) Wears glasses PAST SURGICAL HISTORY: PAST SURGICAL HISTORY Procedure Laterality Date APPENDECTOMY HX CHG BRONCH DX W/WO WASH CHOLECYSTECTOMY HX HERNIA REPAIR HX HYSTERECTOMY HX total OPEN PLEURAL BIOPSY Right 10/14/2015 Right VATS pleural biopsy, drainage of effusion, intercostal nerve blocks, and mechanical and chemical pleurodesis (Doxycycline) for Lung cancer, right pleural effusion, and respiratory insufficiency PORTOCATH PLACEMENT 10/08/2014 REMOVAL OF LUNG,LOBECTOMY Right 10/14/2015 TUBAL LIGATION HX FAMILY HISTORY: FAMILY HISTORY Problem Relation Age of Onset other (liver disease [Other]) Father other (brain surgery [Other]) Mother Colon Cancer Brother Colon Cancer Brother Cancer Maternal Grandmother Alcohol/Drug Father ETOH contributed to SOCIAL HISTORY: Social History Tobacco Use Smoking status: Former Packs/day: 0.75 Years: 40.00 Pack years: 30.00 Types: Cigarettes Start date: 1974 Quit date: 08/08/2014 Years since quittin.3 Smokeless tobacco: Never Substance Use Topics Alcohol use: Yes Comment: OCCASSIONAL GLASS OF WINE Drug use: Not Currently MEDICATIONS: Prior to Admission Medications: losartan (COZAAR) 50 mg tablet Take 50 mg by mouth once daily. 06/18/22: PT NOTIFIED ME OF THIS BEING ADDED FOR ELEVATED BP. valACYclovir (VALTREX) 500 mg tablet three times daily. carvedilol (COREG) 25 mg tablet Take 25 mg by mouth twice daily. TAKE WITH FOOD. tiotropium bromide (SPIRIVA RESPIMAT) 2.5 mcg/actuation inhaler Inhale 2 Puffs as instructed once daily. albuterol sulfate (VENTOLIN INHALATION) Inhale 2 Puffs as instructed once daily. ALSO USES PRN afatinib (GILOTRIF) 30 mg tablet Take 30 mg by mouth Every 3 Days. L. paracasei/L. rhamnosus (CULTURELLE ADVANCED REGULARITY ORAL) Take by mouth once daily. VITAMIN E ACETATE ORAL Take by mouth once daily. loperamide HCl (IMODIUM ORAL) Take by mouth as needed. esomeprazole (NEXIUM) 20 mg capsule Take 20 mg by mouth once daily. melatonin 10 mg cap Take 10 capsules by mouth daily at bedtime. acetaminophen (TYLENOL) 325 mg tablet Take 2 tablets by mouth every 6 hours as needed for Pain or Fever. ibuprofen (MOTRIN) 400 mg tablet Take 1 tablet by mouth every 6 hours as needed for Pain or Fever. CALCIUM CARBONATE/VITAMIN D3 (CALCIUM + D ORAL) Take by mouth once daily. Multivitamin capsule Take 1 capsule by mouth once daily. VITAMIN B COMPLEX-100 ORAL Take by mouth once daily. dicyclomine (BENTYL) 20 mg tablet Take 20 mg by mouth three times daily. ALLERGIES: ALLERGIES Allergen Reactions Ipratropium-Albuter* Hives SOB Lactose Other: See Comments Lamisil [Terbinafin* Rash, Intolerance Face and eye swelling Chemical Exposure: No Asbestos Exposure No COMPLETE REVIEW OF SYSTEMS Constitutional: No weight loss, malaise or fevers. HEENT: Negative for frequent or significant headaches, No changes in hearing or vision, no nose bleeds or other nasal problems Resp: See HPI Cardiovascular: Negative for chest pain, leg swelling or palpitations GI: Negative for abdominal discomfort, blood in stools or black stools or change in bowel habits : No history of dysuria, frequency, or incontinence and No difficulty urination, nocturia >1 times per night or hematuria Endo: Negative for cold or heat intolerance, polyuria, polydipsia and goiter Heme/Lymph: Negative for prolonged bleeding, bruising easily or swollen nodes Neurologic: No history or headaches, syncope, paralysis, seizures or tremors Integumentary: Negative for lesions, rash, and itching. Additional systems reviewed: No additional systems reviewed PHYSICAL EXAM BP 104/70 Pulse 99 Temp (Src) 97.4 (Temporal) Resp 28 Ht 5' 1.5 (1.56m) Wt 133 lb 11.2 oz (60.6kg) SpO2 99% BMI 24.86 kg/(m^2). RA Constitutional: Well developed, Well nourished , and No acute distress HEENT: PERRLA and Sclera anicteric Resp: Clear and Respiratory effort: normal Cardiovascular: Regular rate & rhythm and S1, S2 normal GI: Soft, Non-tender, Bowel sounds present, and Non-distended Integumentary: Warm and Dry Musculoskeletal: No deformities and No joint deformities Neurological/Psychiatric: Oriented to time, place & person and No gross focal neurologic deficits Additional systems reviewed: No additional systems reviewed DATA: Pathology: 06/29/2022 ebus FINAL DIAGNOSIS A. Lung, left upper lobe, core biopsy : - Adenocarcinoma. B. Lung, left upper lobe mass, transbronchial biopsy: - Adenocarcinoma. Procedures: BRONCH 06/29/22 Left Thoracentesis 10/22/2022 - 670 ml removed Thoracentesis fluid (cell block): Non-small cell carcinoma, adenocarcinoma. See comment. 10/14/2015: Right VATS pleural biopsy, drainage of effusion, intercostal nerve blocks, and mechanicaland chemical pleurodesis. (maryjane) Imaging cxr 11/08/2022 IMPRESSION: New moderate left lower lobe infiltrate and left pleural effusion. Spiculated mass right hilum consistent with known malignancy. Stable moderate scarring in the left apex. ct chest 10/15/2022 (Need Images) Stable appearance of a suspicious spiculated left upper lobe nodule, it again measures approximately 4 x 2.4 cm. Significant increase in size of a previously noted left pleural effusion. This should be considered a malignant effusion until proven otherwise. Increase in size of a previously noted lingular nodule, measurements as listed above Stable chronic scarring in the medial right lower lobe likely a result of radiation therapy No suspicious adenopathy Calcified coronary vessels Degenerative bony changes Fatty liver CT (chest) 06/27/2022 Dominant left apical solid nodule/mass is slightly larger/more consolidative in comparison to the immediate prior CT, and compatible with malignancy, reported adenocarcinoma. New trace left pleural effusion. Multiple additional solid, part solid and nonsolid nodules in both lungs are unchanged. Some of these likely represent lesions along the spectrum of adenocarcinoma, while others are likely benign (postinfectious/postinflammatory. Suggest continued follow-up. Stable postradiation fibrotic changes in the right lung. Stable pleural thickening along the right posterior chest wall. No new or enlarging thoracic lymph nodes. Stable treated confluent soft tissues in the right hilar region which encase the right-sided bronchovascular bundles without significant interval increase in nodular component in this region. Moderate centrilobular emphysema and diffuse airway inflammatory changes in both lungs. Stable benign appearing fluid collection/cystic lesion in the right cardiophrenic recess, possibly a congenital or acquired pericardial cyst. Cardiopulmonary Testing PFT's/Six 11/30/2022: Distance Walked (meters) Distance Walked (feet) Female Predicted Walk Distance (feet) Female Lower Limit of Normal (feet) Female % Predicted Total Duration Of The Stops (seconds) 320.04 1050 1373.69 917.69 76.4 -- PRE-BRONCH POST-BRONCH Pre LLN Pred ULN %Pred Post %Pred %Chg SPIROMETRY FVC (L) 2.60 1.72 2.42 3.15 107 FEV1 (L) 1.24 1.32 1.86 2.38 66 FEV1/FVC 0.48 0.64 0.78 0.90 61 DLCOunc (ml/min/mmHg) 7.75 12.60 18.77 24.94 41 Cardiac: N/a I have personally reviewed the following images/data: CT scan, Pathology, and PFT/screening nura Outside Paper Medical Records Review personally performed by: myself SIGNATURE: Rhianna Dumont APRN.CNP DATE of SERVICE: 12/18/2022 TIME of SERVICE: 12:17 PM documented in this encounterSamaritan Hospital05-19-2023 NoteHNO ID: [id number] Author: RUTHY Reyes Service: ? Author Type: Respiratory Therapist Type: Procedures Filed: 11/30/2022 11:41 AM Note Text: Attestation signed by Catalina Marte MD at 12/01/2022 3:34 PM The patient completed the six minute walk test with No stops. . The patient required Room Air to complete the test. The distance the patient walked in six minutes is within the predicted normal range. This is the first time patient takes the six minute walk test. The patient perceived their dyspnea during the six minute walk test to be 3-Moderate on the modified Vivienne scale. The patient perceived their fatigue during the six minute walk test to be 0-Nothing at all on the modified Vivienne scale. No desaturation with ambulation. I have reviewed the findings and made appropriate revisions as needed. SIGNATURE: Catalina Marte MD PATIENT NAME: Gee Laura DATE: December 01, 2022 TIME: 3:34 PM RESPIRATORY THERAPY SIX MINUTE WALK TEST OXIMETRY REPORT Six Minute Walk Test for This Encounter Oxygen Device Liters FIO2 SpO2% HR Activity Feet Speed (MPH) Flag R/A 94 103 Resting R/A 94 110 Six Minute Walk 1050 2 R/A 96 104 Recovery 2 minute post R/A 96 103 Recovery 3 minute post General Information Height Weight Smoking Status Pulse Oximetry Site Oximeter Pre Blood Pressure Post Blood Pressure Total Time Spent (min) 156 cm (5' 1.42 ) 60.3 kg (133 lb) Ex-smoker R Index Finger Masimo 111/59 116/70 40 _ Distance Walked (meters) Distance Walked (feet) Female Predicted Walk Distance (feet) Female Lower Limit of Normal (feet) Female % Predicted Total Duration Of The Stops (seconds) 320.04 1050 1373.69 917.69 76.4 -- _ Lowest SpO2 During 6 Minute Walk Pre-Vivienne Dyspnea Rating Pre-Vivienne Fatigue Rating Post Vivienne Dyspnea Rating Post Vivienne Fatigue Rating O2 Supply Carrier Walking Assistance/Device 91 % 0 0 3 0 -- -- Six Minute Walk Trend (Previous Encounters) None SIGNATURE: RUTHY Reyes PATIENT NAME: Gee Laura DATE: November 30, 2022 TIME: 11:41 [facility]05-19-2023 NoteHNO ID: [id number] Author: RUTHY Reyes Service: ? Author Type: Respiratory Therapist Type: Progress Notes Filed: 11/30/2022 11:41 AM Note Text: PULM FUNCTION SMARTBLOCK: Provider: Sharda Wesley MD, PhD Assisting Tech: RUTHY Reyes Spirometry: 1 DLCO: 1 6 MW: [address] [place], [place] [address]05-19-2023 NoteHNO ID: [id number] Author: RT Yamil(R) Service: Radiology Author Type: Technologist Type: Progress Notes Filed: 11/30/2022 10:16 AM Note Text: Radiology Service Progress Note PATIENT NAME: Gee Laura DATE OF SERVICE: November 30, 2022 TIME: 10:06 AM PATIENT IDENTITY VERIFICATION COMPLETED USING TWO (2) IDENTIFIERS: Name and Date of confirmed by patient verbally. FALL SCREENING: Has the patient had 2 falls in the last year or 1 fall with injury or currently using an Ambulatory Assistive Device (Walker, Cane, Wheelchair, Crutches, etc.)? No PATIENT GENDER DATA: Female. status: : No status: NO. PATIENT RELEVANT IMPLANT DATA REVIEWED: Yes RADIOLOGY DEPARTMENT: General X-ray: Exam(s) Completed: Chest X-Ray PERIPHERAL IV DATA: Not applicable SIGNED BY: RT Yamil(R) November 30, 2022 10:06 [facility]05-09-2023 Miscellaneous Notes* Telephone Encounter - Jalyn Malcolm - 11/20/2022 4:03 PM EDT Patient: Gee Laura Date of : 1945 Patient phone number: [phone] Referring Provider for the encounter: Chikis Jane Requesting Provider: Dr. Wesley Reason for requesting visit (RFV/signs and symptoms/diagnosis): Consult for VATS Pleuradesis Person calling: caregiver: Jalyn Return call to: self Medical Records/Insurance Card scanned into [facility]: Yes Comments: documented in this encounterSamaritan Hospital01-03-2023 Miscellaneous Notes* Telephone Encounter - Avis Cordoba RN - 07/17/2022 2:41 PM EST 07/17/22: PER RUBI RAMIREZ'S REQUEST, PATHOLOGY REPORTS HAVE BEEN FAXED TO DR. HARTMANN'S OFFICE @ [phone] CONFIRMED BY NURSE @ OFFICE. Avis Cordoba RN Respiratory [facility] documented in this encounterSamaritan Hospital12-14-2022 History of Present illness Narrative* Bethanie Solis RT(R) - 06/27/2022 8:40 AM EST Radiology Service Progress Note PATIENT NAME: Gee Laura DATE OF SERVICE: June 27, 2022 TIME: 3:04 PM PATIENT IDENTITY VERIFICATION COMPLETED USING TWO (2) IDENTIFIERS: Name and Date of confirmedby patient verbally. FALL SCREENING: Has the patient had 2 falls in the last year or 1 fall with injury or currently using an Ambulatory Assistive Device (Walker, Cane, Wheelchair, Crutches, etc.)? No PATIENT GENDER DATA: Female. status: : No status: NO. PATIENT RELEVANT IMPLANT DATA REVIEWED: Yes RADIOLOGY DEPARTMENT: CT; Exam(s) Completed: Chest PERIPHERAL IV DATA: Not applicable SIGNED BY: RT Jonah(R) June 27, 2022 3:04 PM documented in this encounterSamaritan Hospital12-06-2022 Miscellaneous Notes* Telephone Encounter - Randa Castaneda - 06/19/2022 11:08 AM EST Received fax from [facility] with lab results, uploaded to patients [employer] documented in this encounterSamaritan Hospital12-01-2022 History of Present illness Narrative* Destin Lemons MD - 06/14/2022 5:08 PM EST Bronchoscopy Request: Cleared for scheduling June 15, 2022 Please schedule patient for the following: Navigation Bronchoscopy (Illumisite) Robotic Bronchoscopy Auris (RUPAL/SS/MM/FA) Robotic Bronchoscopy ION (TG/CG/LL/AM/MA/SL/SS/RUPAL/SG) Visit and Bronchoscopy: Bronch only, visit not needed. Last H&P: 06/14/2022 Time Allotment/Tier: TIER 2: 2 HOUR Physician Performing Bronchoscopy: If ION Robot, TG, SS, RUPAL CG, MA, SG, SL, Lemons or Lee; If Robot ([place]), MM, FA, RUPAL, SS, CG, SL or LL; Otherwise, Bronch A or B or C Special Requests: None Needs Labs: Patient states she had labs with oncologist Dr. Hartmann in [place] this month. Otherwise, Yes, BMP and CBC Needs EKG: Yes Needs CT prior: Yes EMN Bronchoscopy Protocol Chest CT Does the pt need cardiac clearance? No Is he/she on anticoagulants/anti-plt therapy? No Nursing Considerations: (ie: mcc, TB, respiratory isolation, etc.) none Diagnosis/Reason for Bronchoscopy: Stage IV adenocarcinoma on Afatinib. AKHIL nodule growing despite therapy. Needs biopsy for workup oftreatment resistant disease. Referred by: Cristo Reviewed by: Cristo Lemons MD June 14, 2022 5:09 PM Addendum: CBC with diff: WBC 5.86 10/17/2015 RBC 3.89 10/17/2015 Hemoglobin 11.3 10/17/2015 Hematocrit 34.8 10/17/2015 MCV 89.5 10/17/2015 MCH 29.0 10/17/2015 MCHC 32.5 10/17/2015 RDW-CV 13.7 10/17/2015 Platelet Count 262 10/17/2015 MPV 10.4 10/17/2015 Neut% 66.2 08/05/2014 Lymph% 25.6 08/05/2014 Noble% 7.1 08/05/2014 Eosin% 0.5 08/05/2014 Baso% 0.6 08/05/2014 Abs Neut (ANC) 4.22 08/05/2014 Abs Noble 0.45 08/05/2014 Abs Eosin 0.03 08/05/2014 Abs Baso 0.04 08/05/2014 Potassium Date Value Ref Range Status 10/17/2015 4.3 3.5 - 5.0 mmol/L Final 10/16/2015 4.7 3.5 - 5.0 mmol/L Final 10/15/2015 4.6 3.5 - 5.0 mmol/L Final Sodium Date Value Ref Range Status 10/17/2015 138 132 - 148 mmol/L Final 10/16/2015 137 132 - 148 mmol/L Final 10/15/2015 136 132 - 148 mmol/L Final BUN Date Value Ref Range Status 10/17/2015 13 8 - 25 mg/dL Final Creatinine Date Value Ref Range Status 10/17/2015 0.71 0.70 - 1.40 mg/dL Final [facility] Instructions* Patient Instructions* Destin Lemons MD - 06/14/2022 10:56 AM EST Left upper lobe cancer appears slightly increasing in size despite current treatment regimen. Findings raise concern that the tumor may be resistant to treatment. Plan: -we will schedule you for a bronchoscopy with navigation to sample the left upper lobe mass -we will reach out to your cancer doctor for your labs and pulmonary function tests -we will need a pre-procedural COVID test and CT chest (we will call you to make the arrangements) documented in this [facility] History of Present illness Narrative* Destin Lemons MD - 06/14/2022 10:07 AM EST Images from the original note were not included. PULMONOLOGY CONSULT Patient Name: Gee Laura A 76 year old female presents to the [facility] for evaluation. PRIMARY CARE PHYSICIAN: Vlad Dennis MD, MD REASON FOR CONSULT: Evaluation for lung malignancy REQUESTING PHYSICIAN: Dr. Timmy Hartmann (Oncology) at [facility] My final recommendations will be communicated to the requesting health care provider by way of the shared medical record for internal providers or letter via the [employer] for external providers. Extended History of Present Illness: Ms. Laura is a 76yoF with PMHx of NSCLC of RML with paratracheal LAD (dx 08/06/14, stage IIIa, [id number] s/p chemoradiation [Carboplatin and Taxol 09/16- 10/28/14 followed by Carboplatin 11/18-12/23/14 - complete metabolic response], remission since 03/2015) c/b recurrent R pleural effusion s/p pleurodesis.Recent diagnosis of L lung NSCLC adenocarcinoma (stage IV, [id number]). Also, PMHx of Former smoking (12ppd, 45yrs, quit 07/2014), COPD, Colitis, and Psoriasis. Since 03/2015 following cancer treatment, she did well until CT chest 11/14/20 showed growing L lingular nodule with new L pleural effusion. Nodule biopsy at [facility] was unsuccessful, but thoracentesis was performed with cytology 11/28/20 indicating L lung adenocarcinoma (NGS with EGFR L858A positivity); she was started on Afatinib 30mg daily 01/12/21. She had poor tolerance of the treatment with significant diarrhea, dry skin and mouth, and aphthous ulcers, thus requiring decreasing the dose to 30mg every three days which she is now tolerating. CT chest 09/07/21 and 01/25/22 showed stable disease, but CT chest 05/28/22 showed evidence of nodule growth. Thus, patient's Oncologist, Dr. Carlos Hartmann at [facility], referred the patient to [facility] for nodule biopsy. Today, patient denies any major complaints. She reports stability in her functional status. She is able to walk 1 block at a steady pace without dyspnea, but has MOONEY with rapid ambulation or exertion. She uses her Albuterol inhaler as little as 3x in 2wks (hx of COPD). She denies any systemic symptoms, including fever, chills, night sweats, weight loss. REVIEW OF SYSTEMS: General: Negative for fever, chills, fatigue, unintentional weight loss. HEENT: Negative for headache, congestion. CV: Negative for chest pain, palpitations, edema. Resp: + MOONEY. Negative for SOB, wheezing, cough. Abd: + intermittent diarrhea. Negative for abdominal pain, nausea, vomiting, constipation. : Negative for dysuria, hematuria. Skin: Negative for rashes, bruising. Heme/Lymph: Negative for bleeding. Endo: Negative for heat/cold intolerance, polydipsia, polyuria. MSK: Negative for joint pain, swelling. Neuro: Negative for facial droop, dysarthria. PAST MEDICAL HISTORY Diagnosis Date Contracture of palmar fascia Hepatitis unknown type Hepatitis A Lung cancer (HCC) Hx stage IIIA NSCLCa of right mid lung, s/p chemoradiation, remission since Mar 2015 Pleural effusion 08/25 & 08/27/15 s/p U/S Guided Thoracentesis Psoriasis Skin cancer left and right side of face. Treated. Tobacco abuse Ulcerative colitis (HCC) Wears glasses PAST SURGICAL HISTORY Procedure Laterality Date APPENDECTOMY HX CHG BRONCH DX W/WO WASH CHOLECYSTECTOMY HX HERNIA REPAIR HX HYSTERECTOMY HX total OPEN PLEURAL BIOPSY Right 10/14/2015 Right VATS pleural biopsy, drainage of effusion, intercostal nerve blocks, and mechanical and chemical pleurodesis (Doxycycline) for Lung cancer, right pleural effusion, and respiratory insufficiency PORTOCATH PLACEMENT 10/08/2014 REMOVAL OF LUNG,LOBECTOMY Right 10/14/2015 TUBAL LIGATION HX Social History Tobacco Use Smoking status: Former Packs/day: 0.50 Years: 40.00 Pack years: 20.00 Types: Cigarettes Start date: 1974 Quit date: 08/08/2014 Years since quittin.8 Smokeless tobacco: Never Substance Use Topics Alcohol use: Yes Comment: OCCASSIONAL GLASS OF WINE Drug use: Not Currently FAMILY HISTORY Problem Relation Age of Onset other (liver disease [Other]) Father other (brain surgery [Other]) Mother Colon Cancer Brother Colon Cancer Brother Cancer Maternal Grandmother Alcohol/Drug Father ETOH contributed to PHYSICAL EXAMINATION: VITALS:BP 128/70 Pulse 96 Temp 97.7 Resp 18 Ht 5' 2 (1.58m) Wt 134 lb 7.7 oz (61.0kg) SpO2 95% BMI 24.59 kg/(m^2). General: Appears comfortable, in NAD, AAOx3. HEENT: Normocephalic, no scleral icterus, normal lips and teeth, MMM. CV: RRR, no murmurs, no JVD, no edema. Resp: CTA, no wheezing or crackles, breathing comfortably, no accessory muscle use. Abd: Soft, non-tender, non-distended, normal bowel sounds. Skin: Normal color and texture, no rashes or bruising appreciated. MSK: Full ROM. Neuro: No gross facial asymmetry or dysarthria. Laboratory and Imaging: Bronch 08/06/14 Findings: The oropharynx appears normal. The larynx appears normal. The vocal cords move normally with phonation and breathing. The subglottic space is normal. The trachea is of normal caliber. The karina is sharp. The tracheobronchial tree was examined to at least the first subsegmental level. Bronchial mucosa and anatomy are normal; there are no endobronchial lesions, and no secretions. Once the airway inspection was completed, the standard bronchoscope was withdrawn and the convex probe endobronchial ultrasound (EBUS) bronchoscope was inserted through the same route. A systematic staging of the hilum and mediastinum was performed. A dedicated 22 gauge EBUS-TBNA needle was used to sample target locations. Sampled tissue(s) was/were sent for cytology and cytology cell block. The following locations were evaluated and/or sampled: - 11L julio césar station. EBUS node size of 8.[address] node size of 14 mm. PET was not done. 6 samples were obtained. - 4L julio césar station. EBUS node size of 3.[address] node size of 5 mm. PET was not done. 4 samples were obtained. - 4R julio césar station. EBUS node size of 17.[address] node size of 2.1 mm. PET was not done. 6 samples were obtained. - 7 julio césar station. EBUS node size of 9.[address] node size of 6 mm. PET was not done. Node not sampled due to positive N2 node. - Right hilar mass. EBUS size of 22.[address] node size of 3.1 mm. PET was not done. Mass not sampled due to positive ipsilateral N2 node. Rapid onsite cytologic review (ERNESTO): cells consistent with lymphoid sample from the 11L and 4L julio césar stations and non-small cell malignancy from the 4R julio césar station. Impression: - The airway examination was normal. - Systematic staging EBUS was performed. - EBUS-TBNA was performed from julio césar stations 11L, 4L, and 4R. - Preliminary cytology shows cells consistent with lymphoid sample from the 11L and 4L julio césar stations and non-small cell malignancy from the 4R julio césar station Recommendation: - The patient will be observed post-procedure, until all discharge criteria are met. - Await cytology results. - Follow up with referring physician as previously scheduled. ASSESSMENT: Ms. Laura is a 76yoF with PMHx of NSCLC of RML with paratracheal LAD (dx 08/06/14, stage IIIa, [id number] s/p chemoradiation [Carboplatin and Taxol /5- 10/28/14 followed by Carboplatin /7-12/23/14 - complete metabolic response], remission since 03/2015) c/b recurrent R pleural effusion s/p pleurodesis.Also, PMHx of Former smoking (1pd, 45yrs, quit 07/2014), COPD, Colitis, and Psoriasis. Recently (12/2020) diagnosed with L lung NSCLC adenocarcinoma (stage IV, [id number]; NGS with EGFR L858A positivity) for which she was started on Afatinib, currently at a dose of 30mg every 3 days given significantside effects of diarrhea and oral ulcers. Patient follows with Dr. Timmy Hartmann (Oncology) at [facility]. CT chest 09/07/21 and 01/25/22 showed stable disease, but CT chest 05/28/22 showed evidence of growth of the left upper lobe nodule, concerning for treatment resistant disease. Thus, patient is referred for bronchoscopy with biopsy at [facility] given unsuccessful nodule biopsy attempt at [facility] in 2020. PLAN: - Plan for navigational bronchoscopy for biopsy of AKHIL lesion - Ordered CT chest with formatting for navigation bronchoscopy - Preop labs, ECG and COVID-19 testing Phoenix Gupta DO PGY-3 Internal Medicine [facility] STAFF PHYSICIAN NOTE OF PERSONAL INVOLVEMENT IN CARE I have reviewed the consult note obtained and documented by the Resident. I have personally performed a face to face assessment of the patient and have personally participated on the rodriguez components of the history, exam and medical decision making. I have discussed the case and management of the patient's care. The following comments revise or confirm relevant rodriguez components of the note. 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 Patient is sent by his oncologist for bronchoscopic sampling of the growing AKHIL lesion. I compared the patient's CT chest from 05/2021 to 05/2022, there is slow but steady growth of an irregular appearing nodule at the left apex. Parenchymal windows shows multiple apical subsegments that lead into the lesion -reasonable target for an attempt at biopsy via navigational bronchoscopy. From a preoperative standpoint, patient has well preserved functional status without any significant cardiac risk factors (RCRI-0). She has not had any adverse events with anesthesia in the past. Mechanics and risk of bronchoscopic procedure reviewed with patient. She is in agreement to proceed(consent to be signed on day of procedure). PLAN: -Bronchoscopy with navigation to sample AKHIL nodule -Preop labs, EKG, COVID testing to be arranaged SIGNATURE: Destin Lemons MD [facility] DATE of SERVICE: 06/14/2022 [facility] Miscellaneous Notes* Telephone Encounter - Avis Cordoba RN - 06/01/2022 9:20 AM EST Images from the original note were not included. 06/01/22: CALLED [facility] ESCOBAR FAXING CT REPORTS/BX-PATH REPORTS 06/01/22: CALLED [facility] PUSHING CTS CHEST & PETS BACK TO 2015 IF ABLE. 06/01/22: CALLED DR. HARTMANN [phone] (NURSE) FAXING PFT'S, H&P, PATH/BX REPORTS. 06/01/22: CALLED [facility] FAX. NO PATH REPORTS AVAIL PRIOR TO 2014 PER TIANNA. New Patient Consult Request Patient Name: Gee Laura Patient : 1945 PREVISIT INFO SOURCE: PATIENT & CHART CHIEF COMPLAINT: TUMOR CHANGED, NEEDS BX; H/O LUNG CANCER REFERRED BY: SELF PCP: DR. DENNIS PULM: DR. FINNEGAN IP DR. WESLEY CT DR. BERNAL SURG DR. 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 LAURENT Rad/Onc: Yes MEDICATIONS: REVIEWED WITH PATIENT 06/01/22 SPIRIVA 2.5 INH DAILY VENTOLIN INH 2 DAILY & PRN CARDIVILOL 12.5MG BID DICYCLOMINE 20MG QID GILOTRIF 30MG 1-Q 3DAYS CULTURELLE DAILY CENTRUM SILVER DAILY CALCIUM DAILY VIT D DAILY VIT E DAILY IMMODIUM PRN NEXIUM 20MG DAILY MELATONIN 10MG QHS PAST MEDICAL HISTORY Diagnosis Date Contracture of palmar fascia Hepatitis unknown type Hepatitis A Lung cancer (HCC) Hx stage IIIA NSCLCa of right mid lung, s/p chemoradiation, remission since Mar 2015 Pleural effusion 08/25 & 08/27/15 s/p U/S Guided Thoracentesis Psoriasis Skin cancer left and right side of face. Treated. Tobacco abuse Ulcerative colitis (HCC) Wears glasses LACTOSE INTOLERANT PAST SURGICAL HISTORY Procedure Laterality Date APPENDECTOMY HX CHOLECYSTECTOMY HX HERNIA REPAIR HX HYSTERECTOMY HX total OPEN PLEURAL BIOPSY Right 10/14/2015 Right VATS pleural biopsy, drainage of effusion, intercostal nerve blocks, and mechanical and chemical pleurodesis (Doxycycline) for Lung cancer, right pleural effusion, and respiratory insufficiency PORTOCATH PLACEMENT 10/08/14 REMOVAL OF LUNG,LOBECTOMY Right 10/28 TUBAL LIGATION HX AVIS CORDOBA RN June 01, 2022 9:20 AM [facility]* Diagnosis Malignant neoplasm of lung, unspecified laterality, unspecified part of lung (HCC)- Primary Primary lung cancer with metastasis from lung to other site, right (HCC) [facility]* Diagnosis Malignant neoplasm of lung, unspecified laterality, unspecified part of lung (HCC)- Primary [facility]* Diagnosis Personal history of malignant neoplasm of bronchus and lung- Primary Pleural effusion Unspecified pleural effusion [facility]* Diagnosis Pleural effusion- Primary Unspecified pleural effusion Encounter for other preprocedural examination SOB (shortness of breath) Shortness of breath Encounter for other preprocedural examination Pleural effusion Unspecified pleural effusion SOB (shortness of breath) Shortness of breath [facility]* Diagnosis Encounter for preoperative anesthesiology assessment for thoracic surgery- Primary Acute exacerbation of chronic obstructive pulmonary disease (HCC) Obstructive chronic bronchitis with exacerbation Encounter for other preprocedural examination Pleural effusion Unspecified pleural effusion SOB (shortness of breath) Shortness of breath [facility]* Diagnosis Preop examination- Primary Preoperative examination, unspecified Encounter for other preprocedural examination Pleural effusion Unspecified pleural effusion SOB (shortness of breath) Shortness of breath documented [facility]* Diagnosis Encounter for other preprocedural examination Pleural effusion Unspecified pleural effusion SOB (shortness of breath) Shortness of breath Encounter for other preprocedural examination Pleural effusion Unspecified pleural effusion SOB (shortness of breath) Shortness of breath documented [facility]* Diagnosis Malignant pleural effusion- Primary documented in [facility]* Diagnosis Follow-up examination following surgery Follow-up examination, following unspecified surgery [facility] Diagnosis Malignant pleural effusion- Primary Hoarseness Dysphonia [facility] Diagnosis Malignant [facility] effusion [facility] Diagnosis Malignant pleural effusion- Primary Hoarseness Dysphonia SOB (shortness of breath) Shortness of breath Acute exacerbation of chronic obstructive pulmonary disease (HCC) Obstructive chronic bronchitis with exacerbation [facility]* Diagnosis Vocal fold paralysis, left- Primary Hoarseness Dysphonia [facility]* Diagnosis Malignant pleural effusion- Primary SOB (shortness of breath) Shortness of breath Preop examination Preoperative examination, unspecified Malignant pleural effusion SOB (shortness of breath) Shortness of breath Preop examination Preoperative examination, unspecified [facility] Diagnosis Malignant pleural effusion [facility] Diagnosis Malignant pleural effusion- Primary [facility]* Diagnosis Malignant neoplasm of lung, unspecified laterality, unspecified part of lung (HCC) [facility] Diagnosis Malignant pleural effusion [facility]* Diagnosis Hoarseness- Primary Dysphonia Vocal fold paralysis, left History of tobacco abuse Personal history of tobacco use, presenting hazards to health Primary adenocarcinoma of right lung (HCC) documented in this encounter [facility] Plan of care note* Visit Details Visit Type -SN ROUTINE Discipline -Mcc Problems Problem Description Start Date Status Goals Interve ntions Medication Education Disciplines: Skilled Services 04/11/2023 Active 1 goal linked to scheduled/document ed intervention 1 goal intervention scheduled/document ed in this visit Sepsis Disciplines: Skilled Services 04/11/2023 Active 1 goal linked to scheduled/document ed intervention 1 goal intervention scheduled/document ed in this visit Physician Specific Parameters Disciplines: Skilled Services 04/11/2023 Active 1 goal linked to scheduled/document ed intervention 1 goal intervention scheduled/document ed in this visit Risk for Falls Disciplines: Skilled Services 04/11/2023 Active 1 goal linked to scheduled/document ed intervention 1 goal intervention scheduled/document ed in this visit Pain Disciplines: Skilled Services 04/11/2023 Active 1 goal linked to scheduled/document ed intervention 1 goal intervention scheduled/document ed in this visit Nutrition/Hydrati on Disciplines: Skilled Services 04/11/2023 Active 1 goal linked to scheduled/document ed intervention 1 goal intervention scheduled/document ed in this visit SN Respiratory Disease Disciplines: SN 04/11/2023 Active 1 goal linked to scheduled/document ed intervention 1 goal intervention scheduled/document ed in this visit SN Learning Assessment Disciplines: SN 04/11/2023 Active 1 goal linked to scheduled/document ed intervention 1 goal intervention scheduled/document ed in this visit Goals Goal Associated Problem Outcome Goal Met? Visit Notes Patient/caregiver will demonstrate ability to obtain, store, identify and administer ordered medications, keep accurate medication list in home, and adhere to medication schedule Description: Patient/caregiver will demonstrate ability to obtain, store, identify and administer ordered medications, keep accurate medication list in home, and adhere to medication schedule by 05/03/23. Medication Education No Patient/caregiver will be able to identify and report symptoms of sepsis Description: Patient/caregiver will be able to identify signs/symptoms of sepsis infection and will verbalize actions to take if suspected by 05/05/23. Sepsis No Patient to maintain parameters within physician-specified ranges throughout certification period Physician Specific Parameters No Manage Risk for falls Description: Patient/caregiver will verbalize knowledge of individualized fall prevention strategies by 04/25/23. Risk for Falls No Manage Pain Description: Patient/caregiver will verbalize knowledge and understanding of appropriate techniques to control pain, including non-pharmacological techniques. Patient will verbalize or demonstrate an acceptable level of pain as evidenced by a pain score of 0/10 and improvement in ability to perform activities of daily living to be achieved by 05/03/23. Pain No Manage Nutrition/Hydration Description: Patient/caregiver will verbalize/demonstrate knowledge of prescribed diet and/or healthy nutrition to be achieved by 04/23/23. Nutrition/Hydration No Improved management of respiratory condition Description: Improve respiratory management as evidenced by patient/caregiver's ability to teach back strategies for improving respiratory status by 04/23/23. SN Respiratory Disease No Demonstrate understanding of education Description: Patient and/or caregiver will verbalize understanding of educational instruction provided throughout certification period. SN Learning Assessment No Interventions Intervention Associated Problem/Goal Status Variance Visit Notes Medication Education Description: Evaluate/instruct patient/caregiver on obtaining, storing, identifying and administering ordered medications as well as keeping accurate medication list in the home and adhereing to medication schedule Problem:Medication Education Goal:Patient/caregive r will demonstrate ability to obtain, store, identify and administer ordered medications, keep accurate medication list in home, and adhere to medication schedule Completed Patient instructed on adhering to medication schedule. Risk of Sepsis Description: Patient is at risk for sepsis. Monitor closely for s/s of sepsis. Problem:Sepsis Goal:Patient/caregive r will be able to identify and report symptoms of sepsis Completed SPO2 Description: Notify home care MD if pulse ox is <92% at rest. Problem:Physician Specific Parameters Goal:Patient to maintain parameters within physician-specified ranges throughout certification period Completed Instruct on individual fall risk factors and strategies to prevent falls and injuries caused by falls. Problem:Risk for Falls Goal:Manage Risk for falls Completed SN: Patient instructed on Eliminating Environmental Hazards: Keep pathways clear and Keep rooms and walkways well lit Instruct on pain and instruct on strategies to control pain Problem:Pain Goal:Manage Pain Completed patient instructed on techniques to control pain including Non-Pharmacological measures; positioning/elevation . Define patient s appetite/hydration status and implement strategies to improve compliance with prescribed diet and/or healthy nutrition. Problem:Nutrition/Hyd ration Goal:Manage Nutrition/Hydration Completed reinforced patient on implementing strategies to comply with healthy nutrition and adequate hydration Pleural Drain- Instruct on management of pleural drain Description: Instruct on and/or perform PleurX drain care and procedure. Drain chest every other day up to 1,000ml or until stops draining or as much as tolerated by patient. Dressing change to be completed with every drain procedure. Problem:SN Respiratory Disease Goal:Improved management of respiratory condition Completed Completed. patient and caregiver instructed on the following: preparing drainage supplies, connecting drainage bottle, appropriate fluid drainage amounts, disconnecting drainage bottle, fluid disposal and dressing change. Instruct and educate on knowledge deficits Problem:SN Learning Assessment Goal:Demonstrate understanding of education Completed patient verbalize and/or demonstrate understanding of nursing education completed today. Education methods include: verbal cues, tactile cues, visual cues and teach back. Further education required to improve knowledge and compliance with cardiac disease management, drain care management, fall prevention/home safety strategies, medication management, nutrition, pain management and pulmonary disease management. [facility] Visit Details Visit Type -SN ROUTINE Discipline -[facility] Problems Problem Description Start Date Status Goals Interve ntions Medication Education Disciplines: Skilled Services 04/11/2023 Active 1 goal linked to scheduled/document ed intervention 1 goal intervention scheduled/document ed in this visit Sepsis Disciplines: Skilled Services 04/11/2023 Active 1 goal linked to scheduled/document ed intervention 1 goal intervention scheduled/document ed in this visit Physician Specific Parameters Disciplines: Skilled Services 04/11/2023 Active 1 goal linked to scheduled/document ed intervention 1 goal intervention scheduled/document ed in this visit Risk for Falls Disciplines: Skilled Services 04/11/2023 Active 1 goal linked to scheduled/document ed intervention 1 goal intervention scheduled/document ed in this visit Pain Disciplines: Skilled Services 04/11/2023 Active 1 goal linked to scheduled/document ed intervention 1 goal intervention scheduled/document ed in this visit Nutrition/Hydrati on Disciplines: Skilled Services 04/11/2023 Active 1 goal linked to scheduled/document ed intervention 1 goal intervention scheduled/document ed in this visit SN Respiratory Disease Disciplines: SN 04/11/2023 Active 1 goal linked to scheduled/document ed intervention 1 goal intervention scheduled/document ed in this visit SN Learning Assessment Disciplines: SN 04/11/2023 Active 1 goal linked to scheduled/document ed intervention 1 goal intervention scheduled/document ed in this visit Goals Goal Associated Problem Outcome Goal Met? Visit Notes Patient/caregiver will demonstrate ability to obtain, store, identify and administer ordered medications, keep accurate medication list in home, and adhere to medication schedule Description: Patient/caregiver will demonstrate ability to obtain, store, identify and administer ordered medications, keep accurate medication list in home, and adhere to medication schedule by 05/03/23. Medication Education No Patient/caregiver will be able to identify and report symptoms of sepsis Description: Patient/caregiver will be able to identify signs/symptoms of sepsis infection and will verbalize actions to take if suspected by 05/05/23. Sepsis No Patient to maintain parameters within physician-specified ranges throughout certification period Physician Specific Parameters No Manage Risk for falls Description: Patient/caregiver will verbalize knowledge of individualized fall prevention strategies by 04/25/23. Risk for Falls No Manage Pain Description: Patient/caregiver will verbalize knowledge and understanding of appropriate techniques to control pain, including non-pharmacological techniques. Patient will verbalize or demonstrate an acceptable level of pain as evidenced by a pain score of 0/10 and improvement in ability to perform activities of daily living to be achieved by 05/03/23. Pain No Manage Nutrition/Hydration Description: Patient/caregiver will verbalize/demonstrate knowledge of prescribed diet and/or healthy nutrition to be achieved by 04/23/23. Nutrition/Hydration No Improved management of respiratory condition Description: Improve respiratory management as evidenced by patient/caregiver's ability to teach back strategies for improving respiratory status by 04/23/23. SN Respiratory Disease No Demonstrate understanding of education Description: Patient and/or caregiver will verbalize understanding of educational instruction provided throughout certification period. SN Learning Assessment No Interventions Intervention Associated Problem/Goal Status Variance Visit Notes Medication Education Description: Evaluate/instruct patient/caregiver on obtaining, storing, identifying and administering ordered medications as well as keeping accurate medication list in the home and adhereing to medication schedule Problem:Medication Education Goal:Patient/caregive r will demonstrate ability to obtain, store, identify and administer ordered medications, keep accurate medication list in home, and adhere to medication schedule Completed Patient instructed on adhering to medication schedule. Risk of Sepsis Description: Patient is at risk for sepsis. Monitor closely for s/s of sepsis. Problem:Sepsis Goal:Patient/caregive r will be able to identify and report symptoms of sepsis Completed SPO2 Description: Notify home care MD if pulse ox is <92% at rest. Problem:Physician Specific Parameters Goal:Patient to maintain parameters within physician-specified ranges throughout certification period Completed Instruct on individual fall risk factors and strategies to prevent falls and injuries caused by falls. Problem:Risk for Falls Goal:Manage Risk for falls Completed SN: Patient instructed on Eliminating Environmental Hazards: Keep pathways clear Instruct on pain and instruct on strategies to control pain Problem:Pain Goal:Manage Pain Completed patient instructed on techniques to control pain including Non-Pharmacological measures; positioning/elevation . Define patient s appetite/hydration status and implement strategies to improve compliance with prescribed diet and/or healthy nutrition. Problem:Nutrition/Hyd ration Goal:Manage Nutrition/Hydration Completed reinforced patient on implementing strategies to comply with healthy nutrition and adequate hydration Pleural Drain- Instruct on management of pleural drain Description: Instruct on and/or perform PleurX drain care and procedure. Drain chest every other day up to 1,000ml or until stops draining or as much as tolerated by patient. Dressing change to be completed with every drain procedure. Problem:SN Respiratory Disease Goal:Improved management of respiratory condition Completed Completed. patient and caregiver instructed on the following: preparing drainage supplies, connecting drainage bottle, disconnecting drainage bottle, fluid disposal and dressing change. Instruct and educate on knowledge deficits Problem:SN Learning Assessment Goal:Demonstrate understanding of education Completed patient and caregiver verbalize and/or demonstrate understanding of nursing education completed today. Education methods include: verbal cues, tactile cues, visual cues and teach back. Further education required to improve knowledge and compliance with cardiac disease management, drain care management, fall prevention/home safety strategies, medication management, nutrition, pain management and pulmonary disease management. documented in this encounter [facility] Plan of care note* Visit Details Visit Type -SN ROUTINE Discipline -[facility] Problems Problem Description Start Date Status Goals Interve ntions Physician Specific Parameters Disciplines: Skilled Services 04/11/2023 Active 1 goal linked to scheduled/document ed intervention 1 goal intervention scheduled/document ed in this visit Discharge Disciplines: Skilled Services 04/11/2023 Active 1 goal linked to scheduled/document ed intervention 1 goal intervention scheduled/document ed in this visit SN Respiratory Disease Disciplines: SN 04/11/2023 Active 1 goal linked to scheduled/document ed intervention 1 goal intervention scheduled/document ed in this visit SN Learning Assessment Disciplines: SN 04/11/2023 Active 1 goal linked to scheduled/document ed intervention 1 goal intervention scheduled/document ed in this visit Goals Goal Associated Problem Outcome Goal Met? Visit Notes Patient to maintain parameters within physician-specified ranges throughout certification period Physician Specific Parameters No Manage discharge planning Description: Patient/caregiver will verbalize understanding of ongoing discharge plan provided related to disease management, arrangements for outpatient and/or community services, obtaining medications, supplies, and DME, as needed throughout certification period. Discharge No Improved management of respiratory condition Description: Improve respiratory management as evidenced by patient/caregiver's ability to teach back strategies for improving respiratory status by 04/23/23. SN Respiratory Disease No Demonstrate understanding of education Description: Patient and/or caregiver will verbalize understanding of educational instruction provided throughout certification period. SN Learning Assessment No Interventions Intervention Associated Problem/Goal Status Variance Visit Notes SPO2 Description: Notify home care MD if pulse ox is <92% at rest. Problem:Physician Specific Parameters Goal:Patient to maintain parameters within physician-specified ranges throughout certification period Completed Instruct on ongoing discharge plan Problem:Discharge Goal:Manage discharge planning Completed Ongoing Discharge plan: Discharge plan discussed with patient including frequency and duration for home SN and plan for transition to: live independently at home without ongoing services. Pleural Drain- Instruct on management of pleural drain Description: Instruct on and/or perform PleurX drain care and procedure. Drain chest every other day up to 1,000ml or until stops draining or as much as tolerated by patient. Dressing change to be completed with every drain procedure. Problem:SN Respiratory Disease Goal:Improved management of respiratory condition Completed Completed. patient instructed on the following: preparing drainage supplies, connecting drainage bottle, appropriate fluid drainage amounts, disconnecting drainage bottle, fluid disposal, dressing change and reordering supplies. Instruct and educate on knowledge deficits Problem:SN Learning Assessment Goal:Demonstrate understanding of education Completed patient verbalize and/or demonstrate understanding of nursing education completed today. Education methods include: verbal cues. Further education required to improve knowledge and compliance with fall prevention/home safety strategies and pulmonary disease management. documented in this encounter [facility] Plan of care note* Visit Details Visit Type -SN ROUTINE Discipline -[facility] Problems Problem Description Start Date Status Goals Interve ntions Medication Education Disciplines: Skilled Services 04/11/2023 Active 1 goal linked to scheduled/document ed intervention 1 goal intervention scheduled/document ed in this visit Sepsis Disciplines: Skilled Services 04/11/2023 Active 1 goal linked to scheduled/document ed intervention 1 goal intervention scheduled/document ed in this visit Physician Specific Parameters Disciplines: Skilled Services 04/11/2023 Active 1 goal linked to scheduled/document ed intervention 1 goal intervention scheduled/document ed in this visit Risk for Falls Disciplines: Skilled Services 04/11/2023 Active 1 goal linked to scheduled/document ed intervention 1 goal intervention scheduled/document ed in this visit Pain Disciplines: Skilled Services 04/11/2023 Active 1 goal linked to scheduled/document ed intervention 1 goal intervention scheduled/document ed in this visit Nutrition/Hydrati on Disciplines: Skilled Services 04/11/2023 Active 1 goal linked to scheduled/document ed intervention 1 goal intervention scheduled/document ed in this visit SN Respiratory Disease Disciplines: SN 04/11/2023 Active 1 goal linked to scheduled/document ed intervention 1 goal intervention scheduled/document ed in this visit SN Learning Assessment Disciplines: SN 04/11/2023 Active 1 goal linked to scheduled/document ed intervention 1 goal intervention scheduled/document ed in this visit Goals Goal Associated Problem Outcome Goal Met? Visit Notes Patient/caregiver will demonstrate ability to obtain, store, identify and administer ordered medications, keep accurate medication list in home, and adhere to medication schedule Description: Patient/caregiver will demonstrate ability to obtain, store, identify and administer ordered medications, keep accurate medication list in home, and adhere to medication schedule by 05/03/23. Medication Education In Progress No Patient/caregiver will be able to identify and report symptoms of sepsis Description: Patient/caregiver will be able to identify signs/symptoms of sepsis infection and will verbalize actions to take if suspected by 05/05/23. Sepsis In Progress No Patient to maintain parameters within physician-specified ranges throughout certification period Physician Specific Parameters No Manage Risk for falls Description: Patient/caregiver will verbalize knowledge of individualized fall prevention strategies by 04/25/23. Risk for Falls In Progress No Manage Pain Description: Patient/caregiver will verbalize knowledge and understanding of appropriate techniques to control pain, including non-pharmacological techniques. Patient will verbalize or demonstrate an acceptable level of pain as evidenced by a pain score of 0/10 and improvement in ability to perform activities of daily living to be achieved by 05/03/23. Pain In Progress No Manage Nutrition/Hydration Description: Patient/caregiver will verbalize/demonstrate knowledge of prescribed diet and/or healthy nutrition to be achieved by 04/23/23. Nutrition/Hydration In Progress No Improved management of respiratory condition Description: Improve respiratory management as evidenced by patient/caregiver's ability to teach back strategies for improving respiratory status by 04/23/23. SN Respiratory Disease In Progress No Demonstrate understanding of education Description: Patient and/or caregiver will verbalize understanding of educational instruction provided throughout certification period. SN Learning Assessment In Progress No Interventions Intervention Associated Problem/Goal Status Variance Visit Notes Medication Education Description: Evaluate/instruct patient/caregiver on obtaining, storing, identifying and administering ordered medications as well as keeping accurate medication list in the home and adhereing to medication schedule Problem:Medication Education Goal:Patient/caregive r will demonstrate ability to obtain, store, identify and administer ordered medications, keep accurate medication list in home, and adhere to medication schedule Completed Patient instructed on adhering to medication schedule. Risk of Sepsis Description: Patient is at risk for sepsis. Monitor closely for s/s of sepsis. Problem:Sepsis Goal:Patient/caregive r will be able to identify and report symptoms of sepsis Completed SPO2 Description: Notify home care MD if pulse ox is <92% at rest. Problem:Physician Specific Parameters Goal:Patient to maintain parameters within physician-specified ranges throughout certification period Completed Instruct on individual fall risk factors and strategies to prevent falls and injuries caused by falls. Problem:Risk for Falls Goal:Manage Risk for falls Completed SN: Patient instructed on Eliminating Environmental Hazards: Keep pathways clear Instruct on pain and instruct on strategies to control pain Problem:Pain Goal:Manage Pain Completed patient instructed on techniques to control pain including Non-Pharmacological measures; positioning/elevation . Define patient s appetite/hydration status and implement strategies to improve compliance with prescribed diet and/or healthy nutrition. Problem:Nutrition/Hyd ration Goal:Manage Nutrition/Hydration Completed reinforced patient on implementing strategies to comply with healthy nutrition and adequate hydration Pleural Drain- Instruct on management of pleural drain Description: Instruct on and/or perform PleurX drain care and procedure. Drain chest every other day up to 1,000ml or until stops draining or as much as tolerated by patient. Dressing change to be completed with every drain procedure. Problem:SN Respiratory Disease Goal:Improved management of respiratory condition Completed Completed. patient instructed on the following: appropriate fluid drainage amounts. Instruct and educate on knowledge deficits Problem:SN Learning Assessment Goal:Demonstrate understanding of education Completed patient verbalize and/or demonstrate understanding of nursing education completed today. Education methods include: verbal cues and visual cues. Further education required to improve knowledge and compliance with drain care management, fall prevention/home safety strategies, medication management, nutrition, pain management and pulmonary disease management. [facility] Visit Details Visit Type -SN ROUTINE Discipline -[facility] Problems Problem Description Start Date Status Goals Interve ntions Medication Education Disciplines: Skilled Services 04/11/2023 Active 1 goal linked to scheduled/document ed intervention 1 goal intervention scheduled/document ed in this visit Sepsis Disciplines: Skilled Services 04/11/2023 Active 1 goal linked to scheduled/document ed intervention 1 goal intervention scheduled/document ed in this visit Physician Specific Parameters Disciplines: Skilled Services 04/11/2023 Active 1 goal linked to scheduled/document ed intervention 1 goal intervention scheduled/document ed in this visit Risk for Falls Disciplines: Skilled Services 04/11/2023 Active 1 goal linked to scheduled/document ed intervention 1 goal intervention scheduled/document ed in this visit Pain Disciplines: Skilled Services 04/11/2023 Active 1 goal linked to scheduled/document ed intervention 1 goal intervention scheduled/document ed in this visit Nutrition/Hydrati on Disciplines: Skilled Services 04/11/2023 Active 1 goal linked to scheduled/document ed intervention 1 goal intervention scheduled/document ed in this visit Discharge Disciplines: Skilled Services 04/11/2023 Active 1 goal linked to scheduled/document ed intervention 1 goal intervention scheduled/document ed in this visit Advance Directives Disciplines: Skilled Services 04/11/2023 Active 1 goal linked to scheduled/document ed intervention 1 goal intervention scheduled/document ed in this visit SN Respiratory Disease Disciplines: SN 04/11/2023 Active 1 goal linked to scheduled/document ed intervention 1 goal intervention scheduled/document ed in this visit SN Learning Assessment Disciplines: SN 04/11/2023 Active 1 goal linked to scheduled/document ed intervention 1 goal intervention scheduled/document ed in this visit Goals Goal Associated Problem Outcome Goal Met? Visit Notes Patient/caregiver will demonstrate ability to obtain, store, identify and administer ordered medications, keep accurate medication list in home, and adhere to medication schedule Description: Patient/caregiver will demonstrate ability to obtain, store, identify and administer ordered medications, keep accurate medication list in home, and adhere to medication schedule by 05/03/23. Medication Education No Patient/caregiver will be able to identify and report symptoms of sepsis Description: Patient/caregiver will be able to identify signs/symptoms of sepsis infection and will verbalize actions to take if suspected by 05/05/23. Sepsis No Patient to maintain parameters within physician-specified ranges throughout certification period Physician Specific Parameters No Manage Risk for falls Description: Patient/caregiver will verbalize knowledge of individualized fall prevention strategies by 04/25/23. Risk for Falls No Manage Pain Description: Patient/caregiver will verbalize knowledge and understanding of appropriate techniques to control pain, including non-pharmacological techniques. Patient will verbalize or demonstrate an acceptable level of pain as evidenced by a pain score of 0/10 and improvement in ability to perform activities of daily living to be achieved by 05/03/23. Pain No Manage Nutrition/Hydration Description: Patient/caregiver will verbalize/demonstrate knowledge of prescribed diet and/or healthy nutrition to be achieved by 04/23/23. Nutrition/Hydration No Manage discharge planning Description: Patient/caregiver will verbalize understanding of ongoing discharge plan provided related to disease management, arrangements for outpatient and/or community services, obtaining medications, supplies, and DME, as needed throughout certification period. Discharge No Patient/caregiver will make healthcare providers aware of and any changes to Advance Directives throughout certification period Advance Directives No Improved management of respiratory condition Description: Improve respiratory management as evidenced by patient/caregiver's ability to teach back strategies for improving respiratory status by 04/23/23. SN Respiratory Disease No Demonstrate understanding of education Description: Patient and/or caregiver will verbalize understanding of educational instruction provided throughout certification period. SN Learning Assessment No Interventions Intervention Associated Problem/Goal Status Variance Visit Notes Medication Education Description: Evaluate/instruct patient/caregiver on obtaining, storing, identifying and administering ordered medications as well as keeping accurate medication list in the home and adhereing to medication schedule Problem:Medication Education Goal:Patient/caregive r will demonstrate ability to obtain, store, identify and administer ordered medications, keep accurate medication list in home, and adhere to medication schedule Completed Patient instructed on importance of keeping accurate medication list in home, adhering to medication schedule and proper storage of medications. Risk of Sepsis Description: Patient is at risk for sepsis. Monitor closely for s/s of sepsis. Problem:Sepsis Goal:Patient/caregive r will be able to identify and report symptoms of sepsis Completed SPO2 Description: Notify home care MD if pulse ox is <92% at rest. Problem:Physician Specific Parameters Goal:Patient to maintain parameters within physician-specified ranges throughout certification period Completed Instruct on individual fall risk factors and strategies to prevent falls and injuries caused by falls. Problem:Risk for Falls Goal:Manage Risk for falls Completed SN: Patient instructed on Eliminating Environmental Hazards: Keep pathways clear, Remove unsafe rugs, Move furniture from pathways, Keep rooms and walkways well lit, Install hand rails/grab bars, Wear supportive shoes or non-skid socks and Keep frequently used items within reach Instruct on pain and instruct on strategies to control pain Problem:Pain Goal:Manage Pain Completed patient instructed on techniques to control pain including Non-Pharmacological measures; rest and positioning/elevation . Define patient s appetite/hydration status and implement strategies to improve compliance with prescribed diet and/or healthy nutrition. Problem:Nutrition/Hyd ration Goal:Manage Nutrition/Hydration Completed reinforced patient on implementing strategies to comply with prescribed diet, healthy nutrition and adequate hydration Instruct on ongoing discharge plan Problem:Discharge Goal:Manage discharge planning Completed Ongoing Discharge plan: Discharge plan discussed with patient including frequency and duration for home SN and plan for transition to: live independently at home without ongoing services. Determine patient's Advance Directive Status Description: Patient does not have advance directives. Patient/Caregiver declined Advance Directive information. Problem:Advance Directives Goal:Patient/caregive r will make healthcare providers aware of and any changes to Advance Directives throughout certification period Completed Discussed Advance Directives with Patient and/or Caregiver. Referred patient to Home Care handbook for further information on Healthcare DPOA & Living Will. Pleural Drain- Instruct on management of pleural drain Description: Instruct on and/or perform PleurX drain care and procedure. Drain chest every other day up to 1,000ml or until stops draining or as much as tolerated by patient. Dressing change to be completed with every drain procedure. Problem:SN Respiratory Disease Goal:Improved management of respiratory condition Completed Completed. patient instructed on the following: preparing drainage supplies, connecting drainage bottle, appropriate fluid drainage amounts, disconnecting drainage bottle, fluid disposal, dressing change and reordering supplies. Instruct and educate on knowledge deficits Problem:SN Learning Assessment Goal:Demonstrate understanding of education Completed patient verbalize and/or demonstrate understanding of nursing education completed today. Education methods include: verbal cues, written instructions, visual cues and teach back. Further education required to improve knowledge and compliance with pulmonary disease management. documented in this encounter [facility] home Plan of care note* Visit Details Visit Type -SN ROUTINE Discipline -[facility] Problems Problem Description Start Date Status Goals Interve ntions Medication Education Disciplines: Skilled Services 04/11/2023 Active 1 goal linked to scheduled/document ed intervention 1 goal intervention scheduled/document ed in this visit Sepsis Disciplines: Skilled Services 04/11/2023 Active 1 goal linked to scheduled/document ed intervention 1 goal intervention scheduled/document ed in this visit Physician Specific Parameters Disciplines: Skilled Services 04/11/2023 Active 1 goal linked to scheduled/document ed intervention 1 goal intervention scheduled/document ed in this visit Risk for Falls Disciplines: Skilled Services 04/11/2023 Active 1 goal linked to scheduled/document ed intervention 1 goal intervention scheduled/document ed in this visit Pain Disciplines: Skilled Services 04/11/2023 Active 1 goal linked to scheduled/document ed intervention 1 goal intervention scheduled/document ed in this visit Nutrition/Hydrati on Disciplines: Skilled Services 04/11/2023 Active 1 goal linked to scheduled/document ed intervention 1 goal intervention scheduled/document ed in this visit Discharge Disciplines: Skilled Services 04/11/2023 Active 1 goal linked to scheduled/document ed intervention 1 goal intervention scheduled/document ed in this visit SN Respiratory Disease Disciplines: SN 04/11/2023 Active 1 goal linked to scheduled/document ed intervention 1 goal intervention scheduled/document ed in this visit SN Learning Assessment Disciplines: SN 04/11/2023 Active 1 goal linked to scheduled/document ed intervention 1 goal intervention scheduled/document ed in this visit Goals Goal Associated Problem Outcome Goal Met? Visit Notes Patient/caregiver will demonstrate ability to obtain, store, identify and administer ordered medications, keep accurate medication list in home, and adhere to medication schedule Description: Patient/caregiver will demonstrate ability to obtain, store, identify and administer ordered medications, keep accurate medication list in home, and adhere to medication schedule by 05/03/23. Medication Education No Patient/caregiver will be able to identify and report symptoms of sepsis Description: Patient/caregiver will be able to identify signs/symptoms of sepsis infection and will verbalize actions to take if suspected by 05/05/23. Sepsis No Patient to maintain parameters within physician-specified ranges throughout certification period Physician Specific Parameters No Manage Risk for falls Description: Patient/caregiver will verbalize knowledge of individualized fall prevention strategies by 04/25/23. Risk for Falls No Manage Pain Description: Patient/caregiver will verbalize knowledge and understanding of appropriate techniques to control pain, including non-pharmacological techniques. Patient will verbalize or demonstrate an acceptable level of pain as evidenced by a pain score of 0/10 and improvement in ability to perform activities of daily living to be achieved by 05/03/23. Pain No Manage Nutrition/Hydration Description: Patient/caregiver will verbalize/demonstrate knowledge of prescribed diet and/or healthy nutrition to be achieved by 04/23/23. Nutrition/Hydration No Manage discharge planning Description: Patient/caregiver will verbalize understanding of ongoing discharge plan provided related to disease management, arrangements for outpatient and/or community services, obtaining medications, supplies, and DME, as needed throughout certification period. Discharge No Improved management of respiratory condition Description: Improve respiratory management as evidenced by patient/caregiver's ability to teach back strategies for improving respiratory status by 04/23/23. SN Respiratory Disease No Demonstrate understanding of education Description: Patient and/or caregiver will verbalize understanding of educational instruction provided throughout certification period. SN Learning Assessment No Interventions Intervention Associated Problem/Goal Status Variance Visit Notes Medication Education Description: Evaluate/instruct patient/caregiver on obtaining, storing, identifying and administering ordered medications as well as keeping accurate medication list in the home and adhereing to medication schedule Problem:Medication Education Goal:Patient/caregive r will demonstrate ability to obtain, store, identify and administer ordered medications, keep accurate medication list in home, and adhere to medication schedule Completed Patient instructed on importance of keeping accurate medication list in home, adhering to medication schedule and proper storage of medications. Risk of Sepsis Description: Patient is at risk for sepsis. Monitor closely for s/s of sepsis. Problem:Sepsis Goal:Patient/caregive r will be able to identify and report symptoms of sepsis Completed SPO2 Description: Notify home care MD if pulse ox is <92% at rest. Problem:Physician Specific Parameters Goal:Patient to maintain parameters within physician-specified ranges throughout certification period Completed Instruct on individual fall risk factors and strategies to prevent falls and injuries caused by falls. Problem:Risk for Falls Goal:Manage Risk for falls Completed SN: Patient instructed on Eliminating Environmental Hazards: Keep pathways clear, Keep rooms and walkways well lit, Wear supportive shoes or non-skid socks and Keep frequently used items within reach Instruct on pain and instruct on strategies to control pain Problem:Pain Goal:Manage Pain Completed patient instructed on techniques to control pain including Pharmacological measures and Non-Pharmacological measures; rest, positioning/elevation, distraction and breathing/relaxation. Define patient s appetite/hydration status and implement strategies to improve compliance with prescribed diet and/or healthy nutrition. Problem:Nutrition/Hyd ration Goal:Manage Nutrition/Hydration Completed reinforced patient on implementing strategies to comply with healthy nutrition and adequate hydration Instruct on ongoing discharge plan Problem:Discharge Goal:Manage discharge planning Completed Ongoing Discharge plan: Discharge plan discussed with patient including frequency and duration for home SN and plan for transition to: live independently at home without ongoing services. Drain fluid per physician order Description: Instruct on and/or perform Pleurx drain care and procedure. Drain chest twice weekly up to 1,000ml or until stops draining or as much as tolerated by patient. Dressing change to be completed with every drain procedure. Problem:SN Respiratory Disease Goal:Improved management of respiratory condition Completed Completed. Patient did tolerate procedure well. Instruct and educate on knowledge deficits Problem:SN Learning Assessment Goal:Demonstrate understanding of education Completed patient verbalize and/or demonstrate understanding of nursing education completed today. Education methods include: verbal cues and teach back. Further education required to improve knowledge and compliance with cancer care management, drain care management and fall prevention/home safety strategies. [facility] Visit Details Visit Type -SN ROUTINE Discipline -[facility] Problems Problem Description Start Date Status Goals Interve ntions Medication Education Disciplines: Skilled Services 04/11/2023 Active 1 goal linked to scheduled/document ed intervention 1 goal intervention scheduled/document ed in this visit Sepsis Disciplines: Skilled Services 04/11/2023 Active 1 goal linked to scheduled/document ed intervention 1 goal intervention scheduled/document ed in this visit Physician Specific Parameters Disciplines: Skilled Services 04/11/2023 Active 1 goal linked to scheduled/document ed intervention 1 goal intervention scheduled/document ed in this visit Risk for Falls Disciplines: Skilled Services 04/11/2023 Active 1 goal linked to scheduled/document ed intervention 1 goal intervention scheduled/document ed in this visit Pain Disciplines: Skilled Services 04/11/2023 Active 1 goal linked to scheduled/document ed intervention 1 goal intervention scheduled/document ed in this visit Nutrition/Hydrati on Disciplines: Skilled Services 04/11/2023 Active 1 goal linked to scheduled/document ed intervention 1 goal intervention scheduled/document ed in this visit SN Respiratory Disease Disciplines: SN 04/11/2023 Active 1 goal linked to scheduled/document ed intervention 1 goal intervention scheduled/document ed in this visit SN Learning Assessment Disciplines: SN 04/11/2023 Active 1 goal linked to scheduled/document ed intervention 1 goal intervention scheduled/document ed in this visit Goals Goal Associated Problem Outcome Goal Met? Visit Notes Patient/caregiver will demonstrate ability to obtain, store, identify and administer ordered medications, keep accurate medication list in home, and adhere to medication schedule Description: Patient/caregiver will demonstrate ability to obtain, store, identify and administer ordered medications, keep accurate medication list in home, and adhere to medication schedule by 05/03/23. Medication Education In Progress No Patient/caregiver will be able to identify and report symptoms of sepsis Description: Patient/caregiver will be able to identify signs/symptoms of sepsis infection and will verbalize actions to take if suspected by 05/05/23. Sepsis In Progress No Patient to maintain parameters within physician-specified ranges throughout certification period Physician Specific Parameters In Progress No Manage Risk for falls Description: Patient/caregiver will verbalize knowledge of individualized fall prevention strategies by 04/25/23. Risk for Falls In Progress No Manage Pain Description: Patient/caregiver will verbalize knowledge and understanding of appropriate techniques to control pain, including non-pharmacological techniques. Patient will verbalize or demonstrate an acceptable level of pain as evidenced by a pain score of 0/10 and improvement in ability to perform activities of daily living to be achieved by 05/03/23. Pain In Progress No Manage Nutrition/Hydration Description: Patient/caregiver will verbalize/demonstrate knowledge of prescribed diet and/or healthy nutrition to be achieved by 04/23/23. Nutrition/Hydration In Progress No Improved management of respiratory condition Description: Improve respiratory management as evidenced by patient/caregiver's ability to teach back strategies for improving respiratory status by 04/23/23. SN Respiratory Disease In Progress No Demonstrate understanding of education Description: Patient and/or caregiver will verbalize understanding of educational instruction provided throughout certification period. SN Learning Assessment In Progress No Interventions Intervention Associated Problem/Goal Status Variance Visit Notes Medication Education Description: Evaluate/instruct patient/caregiver on obtaining, storing, identifying and administering ordered medications as well as keeping accurate medication list in the home and adhereing to medication schedule Problem:Medication Education Goal:Patient/caregive r will demonstrate ability to obtain, store, identify and administer ordered medications, keep accurate medication list in home, and adhere to medication schedule Completed Patient instructed on adhering to medication schedule. Risk of Sepsis Description: Patient is at risk for sepsis. Monitor closely for s/s of sepsis. Problem:Sepsis Goal:Patient/caregive r will be able to identify and report symptoms of sepsis Completed SPO2 Description: Notify home care MD if pulse ox is <92% at rest. Problem:Physician Specific Parameters Goal:Patient to maintain parameters within physician-specified ranges throughout certification period Completed Instruct on individual fall risk factors and strategies to prevent falls and injuries caused by falls. Problem:Risk for Falls Goal:Manage Risk for falls Completed SN: Patient instructed on Eliminating Environmental Hazards: Keep pathways clear Instruct on pain and instruct on strategies to control pain Problem:Pain Goal:Manage Pain Completed patient instructed on techniques to control pain including Pharmacological measures and Non-Pharmacological measures; positioning/elevation. Define patient s appetite/hydration status and implement strategies to improve compliance with prescribed diet and/or healthy nutrition. Problem:Nutrition/Hyd ration Goal:Manage Nutrition/Hydration Completed reinforced patient on implementing strategies to comply with healthy nutrition and adequate hydration Drain fluid per physician order Description: Instruct on and/or perform Pleurx drain care and procedure. Drain chest twice weekly up to 1,000ml or until stops draining or as much as tolerated by patient. Dressing change to be completed with every drain procedure. Problem:SN Respiratory Disease Goal:Improved management of respiratory condition Completed Completed. Patient did tolerate procedure well. Instruct and educate on knowledge deficits Problem:SN Learning Assessment Goal:Demonstrate understanding of education Completed patient verbalize and/or demonstrate understanding of nursing education completed today. Education methods include: verbal cues. Further education required to improve knowledge and compliance with cancer care management, drain care management, fall prevention/home safety strategies, medication management, nutrition, pain management and pulmonary disease management. documented in this encounter [facility] home Plan of care note* Visit Details Visit Type -SN ROUTINE Discipline -[facility] Problems Problem Description Start Date Status Goals Interve ntions Medication Education Disciplines: Skilled Services 04/11/2023 Active 1 goal linked to scheduled/document ed intervention 1 goal intervention scheduled/document ed in this visit Sepsis Disciplines: Skilled Services 04/11/2023 Active 1 goal linked to scheduled/document ed intervention 1 goal intervention scheduled/document ed in this visit Physician Specific Parameters Disciplines: Skilled Services 04/11/2023 Active 1 goal linked to scheduled/document ed intervention 1 goal intervention scheduled/document ed in this visit Risk for Falls Disciplines: Skilled Services 04/11/2023 Active 1 goal linked to scheduled/document ed intervention 1 goal intervention scheduled/document ed in this visit Pain Disciplines: Skilled Services 04/11/2023 Active 1 goal linked to scheduled/document ed intervention 1 goal intervention scheduled/document ed in this visit Nutrition/Hydrati on Disciplines: Skilled Services 04/11/2023 Active 1 goal linked to scheduled/document ed intervention 1 goal intervention scheduled/document ed in this visit Discharge Disciplines: Skilled Services 04/11/2023 Active 1 goal linked to scheduled/document ed intervention 1 goal intervention scheduled/document ed in this visit SN Respiratory Disease Disciplines: SN 04/11/2023 Active 1 goal linked to scheduled/document ed intervention 1 goal intervention scheduled/document ed in this visit SN Learning Assessment Disciplines: SN 04/11/2023 Active 1 goal linked to scheduled/document ed intervention 1 goal intervention scheduled/document ed in this visit Goals Goal Associated Problem Outcome Goal Met? Visit Notes Patient/caregiver will demonstrate ability to obtain, store, identify and administer ordered medications, keep accurate medication list in home, and adhere to medication schedule Description: Patient/caregiver will demonstrate ability to obtain, store, identify and administer ordered medications, keep accurate medication list in home, and adhere to medication schedule by 05/03/23. Medication Education No Patient/caregiver will be able to identify and report symptoms of sepsis Description: Patient/caregiver will be able to identify signs/symptoms of sepsis infection and will verbalize actions to take if suspected by 05/05/23. Sepsis No Patient to maintain parameters within physician-specified ranges throughout certification period Physician Specific Parameters No Manage Risk for falls Description: Patient/caregiver will verbalize knowledge of individualized fall prevention strategies by 04/25/23. Risk for Falls No Manage Pain Description: Patient/caregiver will verbalize knowledge and understanding of appropriate techniques to control pain, including non-pharmacological techniques. Patient will verbalize or demonstrate an acceptable level of pain as evidenced by a pain score of 0/10 and improvement in ability to perform activities of daily living to be achieved by 05/03/23. Pain No Manage Nutrition/Hydration Description: Patient/caregiver will verbalize/demonstrate knowledge of prescribed diet and/or healthy nutrition to be achieved by 04/23/23. Nutrition/Hydration No Manage discharge planning Description: Patient/caregiver will verbalize understanding of ongoing discharge plan provided related to disease management, arrangements for outpatient and/or community services, obtaining medications, supplies, and DME, as needed throughout certification period. Discharge No Improved management of respiratory condition Description: Improve respiratory management as evidenced by patient/caregiver's ability to teach back strategies for improving respiratory status by 04/23/23. SN Respiratory Disease No Demonstrate understanding of education Description: Patient and/or caregiver will verbalize understanding of educational instruction provided throughout certification period. SN Learning Assessment No Interventions Intervention Associated Problem/Goal Status Variance Visit Notes Medication Education Description: Evaluate/instruct patient/caregiver on obtaining, storing, identifying and administering ordered medications as well as keeping accurate medication list in the home and adhereing to medication schedule Problem:Medication Education Goal:Patient/caregive r will demonstrate ability to obtain, store, identify and administer ordered medications, keep accurate medication list in home, and adhere to medication schedule Completed Patient and Caregiver instructed on importance of keeping accurate medication list in home, adhering to medication schedule and Medication, route, dose, frequency, purpose, and side effects of all medications. Risk of Sepsis Description: Patient is at risk for sepsis. Monitor closely for s/s of sepsis. Problem:Sepsis Goal:Patient/caregive r will be able to identify and report symptoms of sepsis Completed SPO2 Description: Notify home care MD if pulse ox is <92% at rest. Problem:Physician Specific Parameters Goal:Patient to maintain parameters within physician-specified ranges throughout certification period Completed Instruct on individual fall risk factors and strategies to prevent falls and injuries caused by falls. Problem:Risk for Falls Goal:Manage Risk for falls Completed SN: Patient and Caregiver instructed on Eliminating Environmental Hazards: Keep pathways clear, Keep pets out of pathways, Remove unsafe rugs, Move furniture from pathways and Keep rooms and walkways well lit Managing Cognitive Impairment/Depression : Recommended use of visual cues/reminders for safety Instruct on pain and instruct on strategies to control pain Problem:Pain Goal:Manage Pain Completed pt denies c/o pain Define patient s appetite/hydration status and implement strategies to improve compliance with prescribed diet and/or healthy nutrition. Problem:Nutrition/Hyd ration Goal:Manage Nutrition/Hydration Completed instructed patient on implementing strategies to comply with healthy nutrition and adequate hydration Instruct on ongoing discharge plan Problem:Discharge Goal:Manage discharge planning Completed Ongoing Discharge plan: Discharge plan discussed with patient including frequency and duration for home SN and plan for transition to: live independently at home without ongoing services. Drain fluid per physician order Description: Instruct on and/or perform Pleurx drain care and procedure. Drain chest 3 x weekly up to 1,000ml or until stops draining or as much as tolerated by patient. Dressing change to be completed with every drain procedure. Problem:SN Respiratory Disease Goal:Improved management of respiratory condition Completed Completed. Patient did tolerate procedure well. Instruct and educate on knowledge deficits Problem:SN Learning Assessment Goal:Demonstrate understanding of education Completed patient verbalize and/or demonstrate understanding of nursing education completed today. Education methods include: verbal cues and teach back. Further education required to improve knowledge and compliance with cancer care management, drain care management, fall prevention/home safety strategies, incision/wound care management, medication management, nutrition, pain management and pulmonary disease management. [facility] Visit Details Visit Type -SN ROUTINE Discipline -[facility] Problems Problem Description Start Date Status Goals Interve ntions Medication Education Disciplines: Skilled Services 04/11/2023 Active 1 goal linked to scheduled/document ed intervention 1 goal intervention scheduled/document ed in this visit Sepsis Disciplines: Skilled Services 04/11/2023 Active 1 goal linked to scheduled/document ed intervention 1 goal intervention scheduled/document ed in this visit Physician Specific Parameters Disciplines: Skilled Services 04/11/2023 Active 1 goal linked to scheduled/document ed intervention 1 goal intervention scheduled/document ed in this visit Risk for Falls Disciplines: Skilled Services 04/11/2023 Active 1 goal linked to scheduled/document ed intervention 1 goal intervention scheduled/document ed in this visit Nutrition/Hydrati on Disciplines: Skilled Services 04/11/2023 Active 1 goal linked to scheduled/document ed intervention 1 goal intervention scheduled/document ed in this visit SN Respiratory Disease Disciplines: 04/11/2023 Active 1 goal linked to scheduled/document ed intervention 1 goal intervention scheduled/document ed in this visit SN Learning Assessment Disciplines: 04/11/2023 Active 1 goal linked to scheduled/document ed intervention 1 goal intervention scheduled/document ed in this visit Goals Goal Associated Problem Outcome Goal Met? Visit Notes Patient/caregiver will demonstrate ability to obtain, store, identify and administer ordered medications, keep accurate medication list in home, and adhere to medication schedule Description: Patient/caregiver will demonstrate ability to obtain, store, identify and administer ordered medications, keep accurate medication list in home, and adhere to medication schedule by 05/03/23. Medication Education In Progress No Patient/caregiver will be able to identify and report symptoms of sepsis Description: Patient/caregiver will be able to identify signs/symptoms of sepsis infection and will verbalize actions to take if suspected by 05/05/23. Sepsis In Progress No Patient to maintain parameters within physician-specified ranges throughout certification period Physician Specific Parameters In Progress No Manage Risk for falls Description: Patient/caregiver will verbalize knowledge of individualized fall prevention strategies by 04/25/23. Risk for Falls In Progress No Manage Nutrition/Hydration Description: Patient/caregiver will verbalize/demonstrate knowledge of prescribed diet and/or healthy nutrition to be achieved by 04/23/23. Nutrition/Hydration In Progress No Improved management of respiratory condition Description: Improve respiratory management as evidenced by patient/caregiver's ability to teach back strategies for improving respiratory status by 04/23/23. SN Respiratory Disease In Progress No Demonstrate understanding of education Description: Patient and/or caregiver will verbalize understanding of educational instruction provided throughout certification period. SN Learning Assessment In Progress No Interventions Intervention Associated Problem/Goal Status Variance Visit Notes Medication Education Description: Evaluate/instruct patient/caregiver on obtaining, storing, identifying and administering ordered medications as well as keeping accurate medication list in the home and adhereing to medication schedule Problem:Medication Education Goal:Patient/caregiv er will demonstrate ability to obtain, store, identify and administer ordered medications, keep accurate medication list in home, and adhere to medication schedule Completed Patient instructed on adhering to medication schedule. Risk of Sepsis Description: Patient is at risk for sepsis. Monitor closely for s/s of sepsis. Problem:Sepsis Goal:Patient/caregiv er will be able to identify and report symptoms of sepsis Completed SPO2 Description: Notify home care MD if pulse ox is <92% at rest. Problem:Physician Specific Parameters Goal:Patient to maintain parameters within physician-specified ranges throughout certification period Completed Instruct on individual fall risk factors and strategies to prevent falls and injuries caused by falls. Problem:Risk for Falls Goal:Manage Risk for falls Completed SN: Patient instructed on Eliminating Environmental Hazards: Keep pathways clear Define patient s appetite/hydration status and implement strategies to improve compliance with prescribed diet and/or healthy nutrition. Problem:Nutrition/Hy dration Goal:Manage Nutrition/Hydration Completed reinforced patient on implementing strategies to comply with healthy nutrition and adequate hydration Drain fluid per physician order Description: Instruct on and/or perform Pleurx drain care and procedure. Drain chest 3 x weekly up to 1,000ml or until stops draining or as much as tolerated by patient. Dressing change to be completed with every drain procedure. Problem:SN Respiratory Disease Goal:Improved management of respiratory condition Completed Completed. Patient did tolerate procedure well. Instruct and educate on knowledge deficits Problem:SN Learning Assessment Goal:Demonstrate understanding of education Completed patient verbalize and/or demonstrate understanding of nursing education completed today. Education methods include: verbal cues. Further education required to improve knowledge and compliance with cancer care management, drain care management, fall prevention/home safety strategies, gastrointestinal care management, medication management, nutrition and pulmonary disease management. documented in this encounter [facility] home Plan of care note* Visit Details Visit Type -SN ROUTINE Discipline -[facility] Problems Problem Description Start Date Status Goals Interve ntions Medication Education Disciplines: Skilled Services 04/11/2023 Active 1 goal linked to scheduled/document ed intervention 1 goal intervention scheduled/document ed in this visit Sepsis Disciplines: Skilled Services 04/11/2023 Active 1 goal linked to scheduled/document ed intervention 1 goal intervention scheduled/document ed in this visit Physician Specific Parameters Disciplines: Skilled Services 04/11/2023 Active 1 goal linked to scheduled/document ed intervention 1 goal intervention scheduled/document ed in this visit Risk for Falls Disciplines: Skilled Services 04/11/2023 Active 1 goal linked to scheduled/document ed intervention 1 goal intervention scheduled/document ed in this visit Pain Disciplines: Skilled Services 04/11/2023 Active 1 goal linked to scheduled/document ed intervention Nutrition/Hydrati on Disciplines: Skilled Services 04/11/2023 Active 1 goal linked to scheduled/document ed intervention 1 goal intervention scheduled/document ed in this visit SN Respiratory Disease Disciplines: SN 04/11/2023 Active 1 goal linked to scheduled/document ed intervention 1 goal intervention scheduled/document ed in this visit SN Learning Assessment Disciplines: 04/11/2023 Active 1 goal linked to scheduled/document ed intervention 1 goal intervention scheduled/document ed in this visit Goals Goal Associated Problem Outcome Goal Met? Visit Notes Patient/caregiver will demonstrate ability to obtain, store, identify and administer ordered medications, keep accurate medication list in home, and adhere to medication schedule Description: Patient/caregiver will demonstrate ability to obtain, store, identify and administer ordered medications, keep accurate medication list in home, and adhere to medication schedule by 05/03/23. Medication Education In Progress No Patient/caregiver will be able to identify and report symptoms of sepsis Description: Patient/caregiver will be able to identify signs/symptoms of sepsis infection and will verbalize actions to take if suspected by 05/05/23. Sepsis In Progress No Patient to maintain parameters within physician-specified ranges throughout certification period Physician Specific Parameters In Progress No Manage Risk for falls Description: Patient/caregiver will verbalize knowledge of individualized fall prevention strategies by 04/25/23. Risk for Falls In Progress No Manage Pain Description: Patient/caregiver will verbalize knowledge and understanding of appropriate techniques to control pain, including non-pharmacological techniques. Patient will verbalize or demonstrate an acceptable level of pain as evidenced by a pain score of 0/10 and improvement in ability to perform activities of daily living to be achieved by 05/03/23. Pain In Progress No Manage Nutrition/Hydration Description: Patient/caregiver will verbalize/demonstrate knowledge of prescribed diet and/or healthy nutrition to be achieved by 04/23/23. Nutrition/Hydration In Progress No Improved management of respiratory condition Description: Improve respiratory management as evidenced by patient/caregiver's ability to teach back strategies for improving respiratory status by 04/23/23. SN Respiratory Disease In Progress No Demonstrate understanding of education Description: Patient and/or caregiver will verbalize understanding of educational instruction provided throughout certification period. SN Learning Assessment In Progress No Interventions Intervention Associated Problem/Goal Status Variance Visit Notes Medication Education Description: Evaluate/instruct patient/caregiver on obtaining, storing, identifying and administering ordered medications as well as keeping accurate medication list in the home and adhereing to medication schedule Problem:Medication Education Goal:Patient/caregiv er will demonstrate ability to obtain, store, identify and administer ordered medications, keep accurate medication list in home, and adhere to medication schedule Completed Patient instructed on adhering to medication schedule. Risk of Sepsis Description: Patient is at risk for sepsis. Monitor closely for s/s of sepsis. Problem:Sepsis Goal:Patient/caregiv er will be able to identify and report symptoms of sepsis Completed SPO2 Description: Notify home care MD if pulse ox is <92% at rest. Problem:Physician Specific Parameters Goal:Patient to maintain parameters within physician-specified ranges throughout certification period Completed Instruct on individual fall risk factors and strategies to prevent falls and injuries caused by falls. Problem:Risk for Falls Goal:Manage Risk for falls Completed SN: Patient instructed on Eliminating Environmental Hazards: Keep pathways clear Safety precautions for orthostatic hypotension Define patient s appetite/hydration status and implement strategies to improve compliance with prescribed diet and/or healthy nutrition. Problem:Nutrition/Hy dration Goal:Manage Nutrition/Hydration Completed reinforced patient on implementing strategies to comply with healthy nutrition and adequate hydration Drain fluid per physician order Description: Instruct on and/or perform Pleurx drain care and procedure. Drain chest 3 x weekly up to 1,000ml or until stops draining or as much as tolerated by patient. Dressing change to be completed with every drain procedure. Problem:SN Respiratory Disease Goal:Improved management of respiratory condition Completed Completed. Patient did tolerate procedure well. Instruct and educate on knowledge deficits Problem:SN Learning Assessment Goal:Demonstrate understanding of education Completed patient verbalize and/or demonstrate understanding of nursing education completed today. Education methods include: verbal cues. Further education required to improve knowledge and compliance with cancer care management, fall prevention/home safety strategies, gastrointestinal care management, medication management, nutrition and pulmonary disease management. [facility] Visit Details Visit Type -SN ROUTINE Discipline -[facility] Problems Problem Description Start Date Status Goals Interve ntions Sepsis Disciplines: Skilled Services 04/11/2023 Active 1 goal linked to scheduled/document ed intervention 1 goal intervention scheduled/document ed in this visit Physician Specific Parameters Disciplines: Skilled Services 04/11/2023 Active 1 goal linked to scheduled/document ed intervention 1 goal intervention scheduled/document ed in this visit Pain Disciplines: Skilled Services 04/11/2023 Active 1 goal linked to scheduled/document ed intervention 1 goal intervention scheduled/document ed in this visit SN Respiratory Disease Disciplines: SN 04/11/2023 Active 1 goal linked to scheduled/document ed intervention 1 goal intervention scheduled/document ed in this visit SN Learning Assessment Disciplines: SN 04/11/2023 Active 1 goal linked to scheduled/document ed intervention 1 goal intervention scheduled/document ed in this visit Goals Goal Associated Problem Outcome Goal Met? Visit Notes Patient/caregiver will be able to identify and report symptoms of sepsis Description: Patient/caregiver will be able to identify signs/symptoms of sepsis infection and will verbalize actions to take if suspected by 05/05/23. Sepsis No Patient to maintain parameters within physician-specified ranges throughout certification period Physician Specific Parameters No Manage Pain Description: Patient/caregiver will verbalize knowledge and understanding of appropriate techniques to control pain, including non-pharmacological techniques. Patient will verbalize or demonstrate an acceptable level of pain as evidenced by a pain score of 0/10 and improvement in ability to perform activities of daily living to be achieved by 05/03/23. Pain No Improved management of respiratory condition Description: Improve respiratory management as evidenced by patient/caregiver's ability to teach back strategies for improving respiratory status by 04/23/23. SN Respiratory Disease No Demonstrate understanding of education Description: Patient and/or caregiver will verbalize understanding of educational instruction provided throughout certification period. SN Learning Assessment No Interventions Intervention Associated Problem/Goal Status Variance Visit Notes Risk of Sepsis Description: Patient is at risk for sepsis. Monitor closely for s/s of sepsis. Problem:Sepsis Goal:Patient/caregive r will be able to identify and report symptoms of sepsis Completed SPO2 Description: Notify home care MD if pulse ox is <92% at rest. Problem:Physician Specific Parameters Goal:Patient to maintain parameters within physician-specified ranges throughout certification period Completed Instruct on pain and instruct on strategies to control pain Problem:Pain Goal:Manage Pain Completed patient instructed on techniques to control pain including Pharmacological measures and Non-Pharmacological measures; rest and distraction. Drain fluid per physician order Description: Instruct on and/or perform Pleurx drain care and procedure. Drain chest 3 x weekly up to 1,000ml or until stops draining or as much as tolerated by patient. Dressing change to be completed with every drain procedure. Problem:SN Respiratory Disease Goal:Improved management of respiratory condition Completed Completed. Patient did tolerate procedure well. Instruct and educate on knowledge deficits Problem:SN Learning Assessment Goal:Demonstrate understanding of education Completed patient verbalize and/or demonstrate understanding of nursing education completed today. Education methods include: verbal cues. Further education required to improve knowledge and compliance with cancer care management, drain care management, medication management, nutrition and pulmonary disease management. documented in this encounter [facility] home Plan of care note* Visit Details Visit Type -SN ROUTINE Discipline -[facility] Problems Problem Description Start Date Status Goals Interve ntions Medication Education Disciplines: Skilled Services 04/11/2023 Active 1 goal linked to scheduled/document ed intervention 1 goal intervention scheduled/document ed in this visit Sepsis Disciplines: Skilled Services 04/11/2023 Active 1 goal linked to scheduled/document ed intervention 1 goal intervention scheduled/document ed in this visit Physician Specific Parameters Disciplines: Skilled Services 04/11/2023 Active 1 goal linked to scheduled/document ed intervention 1 goal intervention scheduled/document ed in this visit Risk for Falls Disciplines: Skilled Services 04/11/2023 Active 1 goal linked to scheduled/document ed intervention 1 goal intervention scheduled/document ed in this visit Pain Disciplines: Skilled Services 04/11/2023 Active 1 goal linked to scheduled/document ed intervention 1 goal intervention scheduled/document ed in this visit Nutrition/Hydrati on Disciplines: Skilled Services 04/11/2023 Active 1 goal linked to scheduled/document ed intervention 1 goal intervention scheduled/document ed in this visit Discharge Disciplines: Skilled Services 04/11/2023 Active 1 goal linked to scheduled/document ed intervention 1 goal intervention scheduled/document ed in this visit SN Respiratory Disease Disciplines: SN 04/11/2023 Active 1 goal linked to scheduled/document ed intervention 1 goal intervention scheduled/document ed in this visit SN Learning Assessment Disciplines: SN 04/11/2023 Active 1 goal linked to scheduled/document ed intervention 1 goal intervention scheduled/document ed in this visit Goals Goal Associated Problem Outcome Goal Met? Visit Notes Patient/caregiver will demonstrate ability to obtain, store, identify and administer ordered medications, keep accurate medication list in home, and adhere to medication schedule Description: Patient/caregiver will demonstrate ability to obtain, store, identify and administer ordered medications, keep accurate medication list in home, and adhere to medication schedule by 05/03/23. Medication Education No Patient/caregiver will be able to identify and report symptoms of sepsis Description: Patient/caregiver will be able to identify signs/symptoms of sepsis infection and will verbalize actions to take if suspected by 05/05/23. Sepsis No Patient to maintain parameters within physician-specified ranges throughout certification period Physician Specific Parameters No Manage Risk for falls Description: Patient/caregiver will verbalize knowledge of individualized fall prevention strategies by 04/25/23. Risk for Falls No Manage Pain Description: Patient/caregiver will verbalize knowledge and understanding of appropriate techniques to control pain, including non-pharmacological techniques. Patient will verbalize or demonstrate an acceptable level of pain as evidenced by a pain score of 0/10 and improvement in ability to perform activities of daily living to be achieved by 05/03/23. Pain No Manage Nutrition/Hydration Description: Patient/caregiver will verbalize/demonstrate knowledge of prescribed diet and/or healthy nutrition to be achieved by 04/23/23. Nutrition/Hydration No Manage discharge planning Description: Patient/caregiver will verbalize understanding of ongoing discharge plan provided related to disease management, arrangements for outpatient and/or community services, obtaining medications, supplies, and DME, as needed throughout certification period. Discharge No Improved management of respiratory condition Description: Improve respiratory management as evidenced by patient/caregiver's ability to teach back strategies for improving respiratory status by 04/23/23. SN Respiratory Disease No Demonstrate understanding of education Description: Patient and/or caregiver will verbalize understanding of educational instruction provided throughout certification period. SN Learning Assessment No Interventions Intervention Associated Problem/Goal Status Variance Visit Notes Medication Education Description: Evaluate/instruct patient/caregiver on obtaining, storing, identifying and administering ordered medications as well as keeping accurate medication list in the home and adhereing to medication schedule Problem:Medication Education Goal:Patient/caregive r will demonstrate ability to obtain, store, identify and administer ordered medications, keep accurate medication list in home, and adhere to medication schedule Completed Patient and Caregiver instructed on importance of keeping accurate medication list in home, adhering to medication schedule and Medication, route, dose, frequency, purpose, and side effects of all medications. Risk of Sepsis Description: Patient is at risk for sepsis. Monitor closely for s/s of sepsis. Problem:Sepsis Goal:Patient/caregive r will be able to identify and report symptoms of sepsis Completed SPO2 Description: Notify home care MD if pulse ox is <92% at rest. Problem:Physician Specific Parameters Goal:Patient to maintain parameters within physician-specified ranges throughout certification period Completed Instruct on individual fall risk factors and strategies to prevent falls and injuries caused by falls. Problem:Risk for Falls Goal:Manage Risk for falls Completed SN: Patient and Caregiver instructed on Eliminating Environmental Hazards: Keep pathways clear, Keep pets out of pathways, Remove unsafe rugs, Move furniture from pathways and Keep rooms and walkways well lit Managing Cognitive Impairment/Depression : Recommended use of visual cues/reminders for safety Instruct on pain and instruct on strategies to control pain Problem:Pain Goal:Manage Pain Completed pt denies Define patient s appetite/hydration status and implement strategies to improve compliance with prescribed diet and/or healthy nutrition. Problem:Nutrition/Hyd ration Goal:Manage Nutrition/Hydration Completed instructed patient on implementing strategies to comply with prescribed diet, healthy nutrition and adequate hydration Instruct on ongoing discharge plan Problem:Discharge Goal:Manage discharge planning Completed Ongoing Discharge plan: Discharge plan discussed with patient including frequency and duration for home SN and plan for transition to: live independently at home without ongoing services. Drain fluid per physician order Description: Instruct on and/or perform Pleurx drain care and procedure. Drain chest 3 x weekly up to 1,000ml or until stops draining or as much as tolerated by patient. Dressing change to be completed with every drain procedure. Problem:SN Respiratory Disease Goal:Improved management of respiratory condition Completed Completed. Patient did tolerate procedure well. Instruct and educate on knowledge deficits Problem:SN Learning Assessment Goal:Demonstrate understanding of education Completed patient verbalize and/or demonstrate understanding of nursing education completed today. Education methods include: verbal cues and teach back. Further education required to improve knowledge and compliance with fall prevention/home safety strategies, incision/wound care management, medication management, nutrition and pulmonary disease management. [facility] Visit Details Visit Type -SN ROUTINE Discipline -[facility] Problems Problem Description Start Date Status Goals Interve ntions Medication Education Disciplines: Skilled Services 04/11/2023 Active 1 goal linked to scheduled/document ed intervention 1 goal intervention scheduled/document ed in this visit Sepsis Disciplines: Skilled Services 04/11/2023 Active 1 goal linked to scheduled/document ed intervention 1 goal intervention scheduled/document ed in this visit Physician Specific Parameters Disciplines: Skilled Services 04/11/2023 Active 1 goal linked to scheduled/document ed intervention 1 goal intervention scheduled/document ed in this visit Risk for Falls Disciplines: Skilled Services 04/11/2023 Active 1 goal linked to scheduled/document ed intervention 1 goal intervention scheduled/document ed in this visit Pain Disciplines: Skilled Services 04/11/2023 Active 1 goal linked to scheduled/document ed intervention 1 goal intervention scheduled/document ed in this visit Nutrition/Hydrati on Disciplines: Skilled Services 04/11/2023 Active 1 goal linked to scheduled/document ed intervention 1 goal intervention scheduled/document ed in this visit Discharge Disciplines: Skilled Services 04/11/2023 Active 1 goal linked to scheduled/document ed intervention 1 goal intervention scheduled/document ed in this visit SN Respiratory Disease Disciplines: SN 04/11/2023 Active 1 goal linked to scheduled/document ed intervention 1 goal intervention scheduled/document ed in this visit SN Learning Assessment Disciplines: SN 04/11/2023 Active 1 goal linked to scheduled/document ed intervention 1 goal intervention scheduled/document ed in this visit Goals Goal Associated Problem Outcome Goal Met? Visit Notes Patient/caregiver will demonstrate ability to obtain, store, identify and administer ordered medications, keep accurate medication list in home, and adhere to medication schedule Description: Patient/caregiver will demonstrate ability to obtain, store, identify and administer ordered medications, keep accurate medication list in home, and adhere to medication schedule by 05/03/23. Medication Education No Patient/caregiver will be able to identify and report symptoms of sepsis Description: Patient/caregiver will be able to identify signs/symptoms of sepsis infection and will verbalize actions to take if suspected by 05/05/23. Sepsis No Patient to maintain parameters within physician-specified ranges throughout certification period Physician Specific Parameters No Manage Risk for falls Description: Patient/caregiver will verbalize knowledge of individualized fall prevention strategies by 04/25/23. Risk for Falls No Manage Pain Description: Patient/caregiver will verbalize knowledge and understanding of appropriate techniques to control pain, including non-pharmacological techniques. Patient will verbalize or demonstrate an acceptable level of pain as evidenced by a pain score of 0/10 and improvement in ability to perform activities of daily living to be achieved by 05/03/23. Pain No Manage Nutrition/Hydration Description: Patient/caregiver will verbalize/demonstrate knowledge of prescribed diet and/or healthy nutrition to be achieved by 04/23/23. Nutrition/Hydration No Manage discharge planning Description: Patient/caregiver will verbalize understanding of ongoing discharge plan provided related to disease management, arrangements for outpatient and/or community services, obtaining medications, supplies, and DME, as needed throughout certification period. Discharge No Improved management of respiratory condition Description: Improve respiratory management as evidenced by patient/caregiver's ability to teach back strategies for improving respiratory status by 04/23/23. SN Respiratory Disease No Demonstrate understanding of education Description: Patient and/or caregiver will verbalize understanding of educational instruction provided throughout certification period. SN Learning Assessment No Interventions Intervention Associated Problem/Goal Status Variance Visit Notes Medication Education Description: Evaluate/instruct patient/caregiver on obtaining, storing, identifying and administering ordered medications as well as keeping accurate medication list in the home and adhereing to medication schedule Problem:Medication Education Goal:Patient/caregive r will demonstrate ability to obtain, store, identify and administer ordered medications, keep accurate medication list in home, and adhere to medication schedule Completed Patient instructed on importance of keeping accurate medication list in home. Risk of Sepsis Description: Patient is at risk for sepsis. Monitor closely for s/s of sepsis. Problem:Sepsis Goal:Patient/caregive r will be able to identify and report symptoms of sepsis Completed SPO2 Description: Notify home care MD if pulse ox is <92% at rest. Problem:Physician Specific Parameters Goal:Patient to maintain parameters within physician-specified ranges throughout certification period Completed Instruct on individual fall risk factors and strategies to prevent falls and injuries caused by falls. Problem:Risk for Falls Goal:Manage Risk for falls Completed SN: Patient instructed on Eliminating Environmental Hazards: Keep pathways clear and Remove unsafe rugs Instruct on pain and instruct on strategies to control pain Problem:Pain Goal:Manage Pain Completed patient instructed on techniques to control pain including Pharmacological measures. Define patient s appetite/hydration status and implement strategies to improve compliance with prescribed diet and/or healthy nutrition. Problem:Nutrition/Hyd ration Goal:Manage Nutrition/Hydration Completed instructed patient on implementing strategies to comply with healthy nutrition Instruct on ongoing discharge plan Problem:Discharge Goal:Manage discharge planning Completed Ongoing Discharge plan: Discharge plan discussed with patient including frequency and duration for home SN and plan for transition to: live independently at home without ongoing services. Drain fluid per physician order Description: Instruct on and/or perform Pleurx drain care and procedure. Drain chest 3 x weekly up to 1,000ml or until stops draining or as much as tolerated by patient. Dressing change to be completed with every drain procedure. Problem:SN Respiratory Disease Goal:Improved management of respiratory condition Completed Completed. Patient did tolerate procedure well. Instruct and educate on knowledge deficits Problem:SN Learning Assessment Goal:Demonstrate understanding of education Completed patient verbalize and/or demonstrate understanding of nursing education completed today. Education methods include: verbal cues and teach back. Further education required to improve knowledge and compliance with cancer care management and fall prevention/home safety strategies. documented in this encounter [facility] home Plan of care note* Visit Details Visit Type -SN ROUTINE Discipline -[facility] Problems Problem Description Start Date Status Goals Interve ntions Medication Education Disciplines: Skilled Services 04/11/2023 Active 1 goal linked to scheduled/document ed intervention 1 goal intervention scheduled/document ed in this visit Sepsis Disciplines: Skilled Services 04/11/2023 Active 1 goal linked to scheduled/document ed intervention 1 goal intervention scheduled/document ed in this visit Physician Specific Parameters Disciplines: Skilled Services 04/11/2023 Active 1 goal linked to scheduled/document ed intervention 1 goal intervention scheduled/document ed in this visit Risk for Falls Disciplines: Skilled Services 04/11/2023 Active 1 goal linked to scheduled/document ed intervention 1 goal intervention scheduled/document ed in this visit Nutrition/Hydrati on Disciplines: Skilled Services 04/11/2023 Active 1 goal linked to scheduled/document ed intervention 1 goal intervention scheduled/document ed in this visit SN Respiratory Disease Disciplines: SN 04/11/2023 Active 1 goal linked to scheduled/document ed intervention 1 goal intervention scheduled/document ed in this visit SN Learning Assessment Disciplines: SN 04/11/2023 Active 1 goal linked to scheduled/document ed intervention 1 goal intervention scheduled/document ed in this visit Goals Goal Associated Problem Outcome Goal Met? Visit Notes Patient/caregiver will demonstrate ability to obtain, store, identify and administer ordered medications, keep accurate medication list in home, and adhere to medication schedule Description: Patient/caregiver will demonstrate ability to obtain, store, identify and administer ordered medications, keep accurate medication list in home, and adhere to medication schedule by 05/03/23. Medication Education In Progress No Patient/caregiver will be able to identify and report symptoms of sepsis Description: Patient/caregiver will be able to identify signs/symptoms of sepsis infection and will verbalize actions to take if suspected by 05/05/23. Sepsis In Progress No Patient to maintain parameters within physician-specified ranges throughout certification period Physician Specific Parameters In Progress No Manage Risk for falls Description: Patient/caregiver will verbalize knowledge of individualized fall prevention strategies by 04/25/23. Risk for Falls In Progress No Manage Nutrition/Hydration Description: Patient/caregiver will verbalize/demonstrate knowledge of prescribed diet and/or healthy nutrition to be achieved by 04/23/23. Nutrition/Hydration In Progress No Improved management of respiratory condition Description: Improve respiratory management as evidenced by patient/caregiver's ability to teach back strategies for improving respiratory status by 04/23/23. SN Respiratory Disease In Progress No Demonstrate understanding of education Description: Patient and/or caregiver will verbalize understanding of educational instruction provided throughout certification period. SN Learning Assessment In Progress No Interventions Intervention Associated Problem/Goal Status Variance Visit Notes Medication Education Description: Evaluate/instruct patient/caregiver on obtaining, storing, identifying and administering ordered medications as well as keeping accurate medication list in the home and adhereing to medication schedule Problem:Medication Education Goal:Patient/caregiv er will demonstrate ability to obtain, store, identify and administer ordered medications, keep accurate medication list in home, and adhere to medication schedule Completed Patient instructed on adhering to medication schedule. Risk of Sepsis Description: Patient is at risk for sepsis. Monitor closely for s/s of sepsis. Problem:Sepsis Goal:Patient/caregiv er will be able to identify and report symptoms of sepsis Completed SPO2 Description: Notify home care MD if pulse ox is <92% at rest. Problem:Physician Specific Parameters Goal:Patient to maintain parameters within physician-specified ranges throughout certification period Completed Instruct on individual fall risk factors and strategies to prevent falls and injuries caused by falls. Problem:Risk for Falls Goal:Manage Risk for falls Completed SN: Patient instructed on Eliminating Environmental Hazards: Keep pathways clear Define patient s appetite/hydration status and implement strategies to improve compliance with prescribed diet and/or healthy nutrition. Problem:Nutrition/Hy dration Goal:Manage Nutrition/Hydration Completed reinforced patient on implementing strategies to comply with healthy nutrition and adequate hydration Drain fluid per physician order Description: Instruct on and/or perform Pleurx drain care and procedure. Drain chest 3 x weekly up to 1,000ml or until stops draining or as much as tolerated by patient. Dressing change to be completed with every drain procedure. Problem:SN Respiratory Disease Goal:Improved management of respiratory condition Completed Completed. Patient did tolerate procedure well. Instruct and educate on knowledge deficits Problem:SN Learning Assessment Goal:Demonstrate understanding of education Completed patient verbalize and/or demonstrate understanding of nursing education completed today. Education methods include: verbal cues. Further education required to improve knowledge and compliance with fall prevention/home safety strategies, gastrointestinal care management, medication management and pulmonary disease management. [facility] Visit Details Visit Type -SN ROUTINE Discipline -[facility] Problems Problem Description Start Date Status Goals Interve ntions Medication Education Disciplines: Skilled Services 04/11/2023 Active 1 goal linked to scheduled/document ed intervention 1 goal intervention scheduled/document ed in this visit Sepsis Disciplines: Skilled Services 04/11/2023 Active 1 goal linked to scheduled/document ed intervention 1 goal intervention scheduled/document ed in this visit Physician Specific Parameters Disciplines: Skilled Services 04/11/2023 Active 1 goal linked to scheduled/document ed intervention 1 goal intervention scheduled/document ed in this visit Risk for Falls Disciplines: Skilled Services 04/11/2023 Active 1 goal linked to scheduled/document ed intervention 1 goal intervention scheduled/document ed in this visit Nutrition/Hydrati on Disciplines: Skilled Services 04/11/2023 Active 1 goal linked to scheduled/document ed intervention 1 goal intervention scheduled/document ed in this visit SN Respiratory Disease Disciplines: SN 04/11/2023 Active 1 goal linked to scheduled/document ed intervention 1 goal intervention scheduled/document ed in this visit SN Learning Assessment Disciplines: SN 04/11/2023 Active 1 goal linked to scheduled/document ed intervention 1 goal intervention scheduled/document ed in this visit Goals Goal Associated Problem Outcome Goal Met? Visit Notes Patient/caregiver will demonstrate ability to obtain, store, identify and administer ordered medications, keep accurate medication list in home, and adhere to medication schedule Description: Patient/caregiver will demonstrate ability to obtain, store, identify and administer ordered medications, keep accurate medication list in home, and adhere to medication schedule by 05/03/23. Medication Education No Patient/caregiver will be able to identify and report symptoms of sepsis Description: Patient/caregiver will be able to identify signs/symptoms of sepsis infection and will verbalize actions to take if suspected by 05/05/23. Sepsis No Patient to maintain parameters within physician-specified ranges throughout certification period Physician Specific Parameters No Manage Risk for falls Description: Patient/caregiver will verbalize knowledge of individualized fall prevention strategies by 04/25/23. Risk for Falls No Manage Nutrition/Hydration Description: Patient/caregiver will verbalize/demonstrate knowledge of prescribed diet and/or healthy nutrition to be achieved by 04/23/23. Nutrition/Hydration No Improved management of respiratory condition Description: Improve respiratory management as evidenced by patient/caregiver's ability to teach back strategies for improving respiratory status by 04/23/23. SN Respiratory Disease No Demonstrate understanding of education Description: Patient and/or caregiver will verbalize understanding of educational instruction provided throughout certification period. SN Learning Assessment No Interventions Intervention Associated Problem/Goal Status Variance Visit Notes Medication Education Description: Evaluate/instruct patient/caregiver on obtaining, storing, identifying and administering ordered medications as well as keeping accurate medication list in the home and adhereing to medication schedule Problem:Medication Education Goal:Patient/caregive r will demonstrate ability to obtain, store, identify and administer ordered medications, keep accurate medication list in home, and adhere to medication schedule Completed Patient instructed on adhering to medication schedule. Risk of Sepsis Description: Patient is at risk for sepsis. Monitor closely for s/s of sepsis. Problem:Sepsis Goal:Patient/caregive r will be able to identify and report symptoms of sepsis Completed SPO2 Description: Notify home care MD if pulse ox is <92% at rest. Problem:Physician Specific Parameters Goal:Patient to maintain parameters within physician-specified ranges throughout certification period Completed Instruct on individual fall risk factors and strategies to prevent falls and injuries caused by falls. Problem:Risk for Falls Goal:Manage Risk for falls Completed SN: Patient instructed on Eliminating Environmental Hazards: Keep pathways clear and Keep rooms and walkways well lit Define patient s appetite/hydration status and implement strategies to improve compliance with prescribed diet and/or healthy nutrition. Problem:Nutrition/Hyd ration Goal:Manage Nutrition/Hydration Completed reinforced patient on implementing strategies to comply with healthy nutrition and adequate hydration Drain fluid per physician order Description: Instruct on and/or perform Pleurx drain care and procedure. Drain chest 3 x weekly up to 1,000ml or until stops draining or as much as tolerated by patient. Dressing change to be completed with every drain procedure. Problem:SN Respiratory Disease Goal:Improved management of respiratory condition Completed Completed. Patient did tolerate procedure well. Instruct and educate on knowledge deficits Problem:SN Learning Assessment Goal:Demonstrate understanding of education Completed patient verbalize and/or demonstrate understanding of nursing education completed today. Education methods include: verbal cues. Further education required to improve knowledge and compliance with cancer care management, fall prevention/home safety strategies, medication management and nutrition. [facility] Visit Details Visit Type -SN ROUTINE Discipline -[facility] Problems Problem Description Start Date Status Goals Interve ntions Medication Education Disciplines: Skilled Services 04/11/2023 Active 1 goal linked to scheduled/documen robin intervention 1 goal intervention scheduled/document ed in this visit Sepsis Disciplines: Skilled Services 04/11/2023 Active 1 goal linked to scheduled/documen robin intervention 1 goal intervention scheduled/document ed in this visit Physician Specific Parameters Disciplines: Skilled Services 04/11/2023 Active 1 goal linked to scheduled/documen robin intervention 1 goal intervention scheduled/document ed in this visit Risk for Falls Disciplines: Skilled Services 04/11/2023 Active 1 goal linked to scheduled/documen robin intervention 1 goal intervention scheduled/document ed in this visit Nutrition/Hydrati on Disciplines: Skilled Services 04/11/2023 Resolved on 06/28/2023 1 goal linked to scheduled/documen robin intervention 1 goal intervention scheduled/document ed in this visit SN Respiratory Disease Disciplines: SN 04/11/2023 Active 1 goal linked to scheduled/documen robin intervention 1 goal intervention scheduled/document ed in this visit SN Learning Assessment Disciplines: SN 04/11/2023 Active 1 goal linked to scheduled/documen robin intervention 1 goal intervention scheduled/document ed in this visit Recertification Disciplines: Skilled Services 06/07/2023 Resolved on 06/28/2023 1 goal linked to scheduled/documen robin intervention Goals Goal Associated Problem Outcome Goal Met? Visit Notes Patient/caregiver will demonstrate ability to obtain, store, identify and administer ordered medications, keep accurate medication list in home, and adhere to medication schedule Description: Patient/caregiver will demonstrate ability to obtain, store, identify and administer ordered medications, keep accurate medication list in home, and adhere to medication schedule by 05/03/23. Medication Education No Patient/caregiver will be able to identify and report symptoms of sepsis Description: Patient/caregiver will be able to identify signs/symptoms of sepsis infection and will verbalize actions to take if suspected by 05/05/23. Sepsis No Patient to maintain parameters within physician-specified ranges throughout certification period Physician Specific Parameters No Manage Risk for falls Description: Patient/caregiver will verbalize knowledge of individualized fall prevention strategies by 04/25/23. Risk for Falls No Manage Nutrition/Hydration Description: Patient/caregiver will verbalize/demonstrate knowledge of prescribed diet and/or healthy nutrition to be achieved by 04/23/23. Nutrition/Hydration Completed Yes Improved management of respiratory condition Description: Improve respiratory management as evidenced by patient/caregiver's ability to teach back strategies for improving respiratory status by 04/23/23. SN Respiratory Disease No Demonstrate understanding of education Description: Patient and/or caregiver will verbalize understanding of educational instruction provided throughout certification period. SN Learning Assessment No Ongoing review of POC and need for skilled services Recertification Completed Yes Interventions Intervention Associated Problem/Goal Status Variance Visit Notes Medication Education Description: Evaluate/instruct patient/caregiver on obtaining, storing, identifying and administering ordered medications as well as keeping accurate medication list in the home and adhereing to medication schedule Problem:Medication Education Goal:Patient/caregive r will demonstrate ability to obtain, store, identify and administer ordered medications, keep accurate medication list in home, and adhere to medication schedule Completed Patient instructed on adhering to medication schedule. Risk of Sepsis Description: Patient is at risk for sepsis. Monitor closely for s/s of sepsis. Problem:Sepsis Goal:Patient/caregive r will be able to identify and report symptoms of sepsis Completed SPO2 Description: Notify home care MD if pulse ox is <92% at rest. Problem:Physician Specific Parameters Goal:Patient to maintain parameters within physician-specified ranges throughout certification period Completed Instruct on individual fall risk factors and strategies to prevent falls and injuries caused by falls. Problem:Risk for Falls Goal:Manage Risk for falls Completed SN: Patient instructed on Eliminating Environmental Hazards: Keep pathways clear and Keep rooms and walkways well lit Define patient s appetite/hydration status and implement strategies to improve compliance with prescribed diet and/or healthy nutrition. Problem:Nutrition/Hyd ration Goal:Manage Nutrition/Hydration Completed reinforced patient on implementing strategies to comply with healthy nutrition and adequate hydration Drain fluid per physician order Description: Instruct on and/or perform Pleurx drain care and procedure. Drain chest 2 x weekly up to 1,000ml or until stops draining or as much as tolerated by patient. Dressing change to be completed with every drain procedure. Problem:SN Respiratory Disease Goal:Improved management of respiratory condition Completed Completed. Patient did tolerate procedure well. Instruct and educate on knowledge deficits Problem:SN Learning Assessment Goal:Demonstrate understanding of education Completed patient verbalize and/or demonstrate understanding of nursing education completed today. Education methods include: verbal cues. Further education required to improve knowledge and compliance with cancer care management, fall prevention/home safety strategies, medication management, nutrition and pulmonary disease management. documented in this encounter [facility] home Plan of care note* Visit Details Visit Type -SN ROUTINE Discipline -[facility] Problems Problem Description Start Date Status Goals Interve ntions Medication Education Disciplines: Skilled Services 04/11/2023 Active 1 goal linked to scheduled/document ed intervention 1 goal intervention scheduled/document ed in this visit Sepsis Disciplines: Skilled Services 04/11/2023 Active 1 goal linked to scheduled/document ed intervention 1 goal intervention scheduled/document ed in this visit Physician Specific Parameters Disciplines: Skilled Services 04/11/2023 Active 1 goal linked to scheduled/document ed intervention 1 goal intervention scheduled/document ed in this visit Risk for Falls Disciplines: Skilled Services 04/11/2023 Active 1 goal linked to scheduled/document ed intervention 1 goal intervention scheduled/document ed in this visit Pain Disciplines: Skilled Services 04/11/2023 Active 1 goal linked to scheduled/document ed intervention SN Respiratory Disease Disciplines: SN 04/11/2023 Active 1 goal linked to scheduled/document ed intervention 1 goal intervention scheduled/document ed in this visit SN Learning Assessment Disciplines: SN 04/11/2023 Active 1 goal linked to scheduled/document ed intervention 1 goal intervention scheduled/document ed in this visit Goals Goal Associated Problem Outcome Goal Met? Visit Notes Patient/caregiver will demonstrate ability to obtain, store, identify and administer ordered medications, keep accurate medication list in home, and adhere to medication schedule Description: Patient/caregiver will demonstrate ability to obtain, store, identify and administer ordered medications, keep accurate medication list in home, and adhere to medication schedule by 08/08/23. Medication Education In Progress No Patient/caregiver will be able to identify and report symptoms of sepsis Description: Patient/caregiver will be able to identify signs/symptoms of sepsis infection and will verbalize actions to take if suspected by 08/08/23. Sepsis In Progress No Patient to maintain parameters within physician-specified ranges throughout certification period Physician Specific Parameters In Progress No Manage Risk for falls Description: Patient/caregiver will verbalize knowledge of individualized fall prevention strategies by 08/08/23. Risk for Falls In Progress No Manage Pain Description: Patient/caregiver will verbalize knowledge and understanding of appropriate techniques to control pain, including non-pharmacological techniques. Patient will verbalize or demonstrate an acceptable level of pain as evidenced by a pain score of 0/10 and improvement in ability to perform activities of daily living to be achieved by 08/08/23. Pain In Progress No Improved management of respiratory condition Description: Improve respiratory management as evidenced by patient/caregiver's ability to teach back strategies for improving respiratory status by 08/08/23. SN Respiratory Disease In Progress No Demonstrate understanding of education Description: Patient and/or caregiver will verbalize understanding of educational instruction provided throughout certification period. SN Learning Assessment In Progress No Interventions Intervention Associated Problem/Goal Status Variance Visit Notes Medication Education Description: Evaluate/instruct patient/caregiver on obtaining, storing, identifying and administering ordered medications as well as keeping accurate medication list in the home and adhereing to medication schedule Problem:Medication Education Goal:Patient/caregive r will demonstrate ability to obtain, store, identify and administer ordered medications, keep accurate medication list in home, and adhere to medication schedule Completed Patient instructed on adhering to medication schedule. Risk of Sepsis Description: Patient is at risk for sepsis. Monitor closely for s/s of sepsis. Problem:Sepsis Goal:Patient/caregive r will be able to identify and report symptoms of sepsis Completed SPO2 Description: Notify home care MD if pulse ox is <92% at rest. Problem:Physician Specific Parameters Goal:Patient to maintain parameters within physician-specified ranges throughout certification period Completed Instruct on individual fall risk factors and strategies to prevent falls and injuries caused by falls. Problem:Risk for Falls Goal:Manage Risk for falls Completed SN: Patient instructed on Eliminating Environmental Hazards: Keep pathways clear Drain fluid per physician order Description: Instruct on and/or perform Pleurx drain care and procedure. Drain chest 2 x weekly up to 1,000ml or until stops draining or as much as tolerated by patient. Dressing change to be completed with every drain procedure. Problem:SN Respiratory Disease Goal:Improved management of respiratory condition Completed Completed. Patient did tolerate procedure well. Instruct and educate on knowledge deficits Problem:SN Learning Assessment Goal:Demonstrate understanding of education Completed patient verbalize and/or demonstrate understanding of nursing education completed today. Education methods include: verbal cues. Further education required to improve knowledge and compliance with drain care management, fall prevention/home safety strategies, medication management and pulmonary disease management. documented in this encounter [facility] for referral (narrative)* Diagnostic Procedure Only (Routine) - Authorized Specialty Diagnoses / Procedures Referred By Marcial quevedo Referred To Contact [facility]LECULAR & FUNCTIONAL [facility]AGING Diagnoses Encounter for other preprocedural examination Pleural effusion SOB (shortness of breath) Procedures NM CARDIAC PERF STRESS/PHARM MYOCARDIAL SPECT MULTIPLE STUDIES Sharda Wesley MD, PhD [address] [place] [address] Molecular & Functional Imaging [address] [place] [address] Referral ID Status Reason Start Date Expiration Date Visits Requested Visits Authorized [id number] Authorized Auto-Generat ed Referral 12/28/2022 01/24/2024 1 1 * Outpatient Procedure (Urgent) - Authorized Specialty Diagnoses / Procedures Referred By Fridaac t Referred To Contact [facility] Diagnoses Encounter for other preprocedural examination Pleural effusion SOB (shortness of breath) Procedures ECG COMPLETE ECG ROUTINE ECG W/LEAST 12 LDS W/I&R Sharda Wesley MD, PhD [address] [address] [facility] [address] [address] Referral ID Status Reason Start Date Expiration Date Visits Requested Visits Authorized [id number] Authorized Auto-Generat ed Referral 12/28/2022 12/25/2023 1 [facility] Diagnostic Procedure Only (Routine) - Closed Specialty Diagnoses / Procedures Referred By Marcial t Referred To Contact [facility]LEC[facility]AGING Diagnoses Encounter for other preprocedural examination Pleural effusion SOB (shortness of breath) Procedures NM CARDIAC PERF STRESS/PHARM MYOCARDIAL SPECT MULTIPLE STUDIES Sharda Wesley MD, PhD [address] [address] Molecular & Functional Imaging [address] [place] [address] Referral ID Status Reason Start Date Expiration Date V isits Requested Visits Authorized [id number] Closed Auto-Generate d Referral 12/28/2022 01/24/2024 1 1 [facility] Reason for Referral Specialty Diagnoses / Procedures Referred By Marcial t Referred To Contact CT IMAGING Diagnoses Malignant neoplasm of lung, unspecified laterality, unspecified part of lung (HCC) Procedures CT CHEST WO IVCON DIAGNOSTIC COMPUTED TOMOGRAPHY THORAX W/O CNTRST Destin Lemons MD [address] [place] [address] Ct Imaging Referral ID Status Reason Start Date Expiration Date Visits Requested Visits Authorized [id number] Pending Review Auto-Generat ed Referral 06/14/2022 07/14/2023 1 1 Specialty Diagnoses / Procedures Referred By Contac t Referred To Contact [facility] Diagnoses Malignant neoplasm of lung, unspecified laterality, unspecified part of lung (HCC) Procedures ECG COMPLETE ECG ROUTINE ECG W/LEAST 12 LDS W/I&R Destin Lemons MD [address] [place] [id number] [facility] [place] [address] Referral ID Status Reason Start Date Expiration Date Visits Requested Visits Authorized [id number] Pending Review Auto-Generat ed Referral 06/14/2022 06/14/2023 1 1 Specialty Diagnoses / Procedures Referred By Contac t Referred To Contact CT IMAGING Diagnoses Malignant neoplasm of lung, unspecified laterality, unspecified part of lung (HCC) Procedures CT CHEST WO IVCON DIAGNOSTIC COMPUTED TOMOGRAPHY THORAX W/O CNTRST Destin Lemons MD [address] [place] [facility] [place] [address] Referral ID Status Reason Start Date Expiration Date V isits Requested Visits Authorized [id number] Closed Auto-Generate d Referral 06/14/2022 07/14/2023 1 1 Summary Purpose Family History No Family History Records FoundNo Family History Records FoundNo Family History Records Found Advance Directives No Advanced Directives Records FoundLatest Code Status on File Code Status Date Activated Date Inactivated Comments Full Code 02/06/2023 1:50 AM 02/06/2023 7:14 PM Question Answer Comments Full Code Order Discussed With: Patient Latest Code Status on File Code Status Date Activated Date Inactivated Comments Full Code 02/06/2023 1:50 AM 02/06/2023 7:14 PM Question Answer Comments Full Code Order Discussed With: Patient Latest Code Status on File Code Status Date Activated Date Inactivated Comments Full Code 04/11/2023 1:21 PM Code Status History Code Status Date Activated Date Inactivated Comments Full Code 02/06/2023 1:50 AM 02/06/2023 7:14 PM Question Answer Comments Full Code Order Discussed With: Patient Latest Code Status on File Code Status Date Activated Date Inactivated Comments Full Code 04/11/2023 1:21 PM Code Status History Code Status Date Activated Date Inactivated Comments Full Code 02/06/2023 1:50 AM 02/06/2023 7:14 PM Question Answer Comments Full Code Order Discussed With: Patient Health Concerns Infection Onset Date Last Indicated Resolved Time COVID-19 Rule-Out 06/27/2022 06/27/2022 06/28/2022 12:13 AM EST Medications Administered Section Inactive Administered Medications - up to 3 most recent administrations Medication Order MAR Action Action Date Dose Rate Site restylane for vocal cord paralysis 1 mL syringe 1 mL, TRANSLARYNGEAL, ONCE, 1 dose, On Sat05/28/23 at 1630, Should only be used by trained otolaryngologists or experienced head and neck surgeons. Given 05/28/2023 4:28 PM EST 1 mL Additional Source Comments Source Comments (unrecognize d section and content) In the event this informatio n is protected by the Federal Confidentiality of Alcohol and Drug Abuse Patient Records regulations: The Federal rules restrict any use of the information to criminally investigate or prosecute any alcohol or drug abuse patient.[facility] the event this information is protected by the Federal Confidentiality of Alcohol and Drug Abuse Patient Records regulations: The Federal rules restrict any use of the information to criminally investigate or prosecute any alcohol or drug abuse patient.[facility] the event this information is protected by the Federal Confidentiality of Alcohol and Drug Abuse Patient Records regulations: The Federal rules restrict any use of the information to criminally investigate or prosecute any alcohol or drug abuse patient.[facility] the event this information is protected by the Federal Confidentiality of Alcohol and Drug Abuse Patient Records regulations: The Federal rules restrict any use of the information to criminally investigate or prosecute any alcohol or drug abuse patient.[facility] the event this information is protected by the Federal Confidentiality of Alcohol and Drug Abuse Patient Records regulations: The Federal rules restrict any use of the information to criminally investigate or prosecute any alcohol or drug abuse patient.[facility] the event this information is protected by the Federal Confidentiality of Alcohol and Drug Abuse Patient Records regulations: The Federal rules restrict any use of the information to criminally investigate or prosecute any alcohol or drug abuse patient.[facility] the event this information is protected by the Federal Confidentiality of Alcohol and Drug Abuse Patient Records regulations: The Federal rules restrict any use of the information to criminally investigate or prosecute any alcohol or drug abuse patient.[facility] the event this information is protected by the Federal Confidentiality of Alcohol and Drug Abuse Patient Records regulations: The Federal rules restrict any use of the information to criminally investigate or prosecute any alcohol or drug abuse patient.[facility]In the event this information is protected by the Federal Confidentiality of Alcohol and Drug Abuse Patient Records regulations: The Federal rules restrict any use of the information to criminally investigate or prosecute any alcohol or drug abuse patient.[facility] the event this information is protected by the Federal Confidentiality of Alcohol and Drug Abuse Patient Records regulations: The Federal rules restrict any use of the information to criminally investigate or prosecute any alcohol or drug abuse patient.[facility] the event this information is protected by the Federal Confidentiality of Alcohol and Drug Abuse Patient Records regulations: The Federal rules restrict any use of the information to criminally investigate or prosecute any alcohol or drug abuse patient.[facility]In the event this information is protected by the Federal Confidentiality of Alcohol and Drug Abuse Patient Records regulations: The Federal rules restrict any use of the information to criminally investigate or prosecute any alcohol or drug abuse patient.[facility] the event this information is protected by the Federal Confidentiality of Alcohol and Drug Abuse Patient Records regulations: The Federal rules restrict any use of the information to criminally investigate or prosecute any alcohol or drug abuse patient.[facility] the event this information is protected by the Federal Confidentiality of Alcohol and Drug Abuse Patient Records regulations: The Federal rules restrict any use of the information to criminally investigate or prosecute any alcohol or drug abuse patient.[facility] the event this information is protected by the Federal Confidentiality of Alcohol and Drug Abuse Patient Records regulations: The Federal rules restrict any use of the information to criminally investigate or prosecute any alcohol or drug abuse patient.[facility] the event this information is protected by the Federal Confidentiality of Alcohol and Drug Abuse Patient Records regulations: The Federal rules restrict any use of the information to criminally investigate or prosecute any alcohol or drug abuse patient.[facility] the event this information is protected by the Federal Confidentiality of Alcohol and Drug Abuse Patient Records regulations: The Federal rules restrict any use of the information to criminally investigate or prosecute any alcohol or drug abuse patient.[facility]In the event this information is protected by the Federal Confidentiality of Alcohol and Drug Abuse Patient Records regulations: The Federal rules restrict any use of the information to criminally investigate or prosecute any alcohol or drug abuse patient.[facility]In the event this information is protected by the Federal Confidentiality of Alcohol and Drug Abuse Patient Records regulations: The Federal rules restrict any use of the information to criminally investigate or prosecute any alcohol or drug abuse patient.[facility]In the event this information is protected by the Federal Confidentiality of Alcohol and Drug Abuse Patient Records regulations: The Federal rules restrict any use of the information to criminally investigate or prosecute any alcohol or drug abuse patient.[facility] HospitalIn the event this information is protected by the Federal Confidentiality of Alcohol and Drug Abuse Patient Records regulations: The Federal rules restrict any use of the information to criminally investigate or prosecute any alcohol or drug abuse patient.[facility]In the event this information is protected by the Federal Confidentiality of Alcohol and Drug Abuse Patient Records regulations: The Federal rules restrict any use of the information to criminally investigate or prosecute any alcohol or drug abuse patient.[facility]In the event this information is protected by the Federal Confidentiality of Alcohol and Drug Abuse Patient Records regulations: The Federal rules restrict any use of the information to criminally investigate or prosecute any alcohol or drug abuse patient.[facility]In the event this information is protected by the Federal Confidentiality of Alcohol and Drug Abuse Patient Records regulations: The Federal rules restrict any use of the information to criminally investigate or prosecute any alcohol or drug abuse patient.[facility]In the event this information is protected by the Federal Confidentiality of Alcohol and Drug Abuse Patient Records regulations: The Federal rules restrict any use of the information to criminally investigate or prosecute any alcohol or drug abuse patient.[facility]In the event this information is protected by the Federal Confidentiality of Alcohol and Drug Abuse Patient Records regulations: The Federal rules restrict any use of the information to criminally investigate or prosecute any alcohol or drug abuse patient.[facility]In the event this information is protected by the Federal Confidentiality of Alcohol and Drug Abuse Patient Records regulations: The Federal rules restrict any use of the information to criminally investigate or prosecute any alcohol or drug abuse patient.[facility]In the event this information is protected by the Federal Confidentiality of Alcohol and Drug Abuse Patient Records regulations: The Federal rules restrict any use of the information to criminally investigate or prosecute any alcohol or drug abuse patient.[facility] HospitalIn the event this information is protected by the Federal Confidentiality of Alcohol and Drug Abuse Patient Records regulations: The Federal rules restrict any use of the information to criminally investigate or prosecute any alcohol or drug abuse patient.[facility]In the event this information is protected by the Federal Confidentiality of Alcohol and Drug Abuse Patient Records regulations: The Federal rules restrict any use of the information to criminally investigate or prosecute any alcohol or drug abuse patient.[facility]In the event this information is protected by the Federal Confidentiality of Alcohol and Drug Abuse Patient Records regulations: The Federal rules restrict any use of the information to criminally investigate or prosecute any alcohol or drug abuse patient.[facility] HospitalIn the event this information is protected by the Federal Confidentiality of Alcohol and Drug Abuse Patient Records regulations: The Federal rules restrict any use of the information to criminally investigate or prosecute any alcohol or drug abuse patient.[facility]In the event this information is protected by the Federal Confidentiality of Alcohol and Drug Abuse Patient Records regulations: The Federal rules restrict any use of the information to criminally investigate or prosecute any alcohol or drug abuse patient.[facility]In the event this information is protected by the Federal Confidentiality of Alcohol and Drug Abuse Patient Records regulations: The Federal rules restrict any use of the information to criminally investigate or prosecute any alcohol or drug abuse patient.[facility]In the event this information is protected by the Federal Confidentiality of Alcohol and Drug Abuse Patient Records regulations: The Federal rules restrict any use of the information to criminally investigate or prosecute any alcohol or drug abuse patient.[facility] HospitalIn the event this information is protected by the Federal Confidentiality of Alcohol and Drug Abuse Patient Records regulations: The Federal rules restrict any use of the information to criminally investigate or prosecute any alcohol or drug abuse patient.[facility]In the event this information is protected by the Federal Confidentiality of Alcohol and Drug Abuse Patient Records regulations: The Federal rules restrict any use of the information to criminally investigate or prosecute any alcohol or drug abuse patient.[facility]In the event this information is protected by the Federal Confidentiality of Alcohol and Drug Abuse Patient Records regulations: The Federal rules restrict any use of the information to criminally investigate or prosecute any alcohol or drug abuse patient.[facility]In the event this information is protected by the Federal Confidentiality of Alcohol and Drug Abuse Patient Records regulations: The Federal rules restrict any use of the information to criminally investigate or prosecute any alcohol or drug abuse patient.[facility]In the event this information is protected by the Federal Confidentiality of Alcohol and Drug Abuse Patient Records regulations: The Federal rules restrict any use of the information to criminally investigate or prosecute any alcohol or drug abuse patient.[facility]In the event this information is protected by the Federal Confidentiality of Alcohol and Drug Abuse Patient Records regulations: The Federal rules restrict any use of the information to criminally investigate or prosecute any alcohol or drug abuse patient.[facility] HospitalIn the event this information is protected by the Federal Confidentiality of Alcohol and Drug Abuse Patient Records regulations: The Federal rules restrict any use of the information to criminally investigate or prosecute any alcohol or drug abuse patient.[facility] HospitalIn the event this information is protected by the Federal Confidentiality of Alcohol and Drug Abuse Patient Records regulations: The Federal rules restrict any use of the information to criminally investigate or prosecute any alcohol or drug abuse patient.[facility] HospitalIn the event this information is protected by the Federal Confidentiality of Alcohol and Drug Abuse Patient Records regulations: The Federal rules restrict any use of the information to criminally investigate or prosecute any alcohol or drug abuse patient.[facility] HospitalIn the event this information is protected by the Federal Confidentiality of Alcohol and Drug Abuse Patient Records regulations: The Federal rules restrict any use of the information to criminally investigate or prosecute any alcohol or drug abuse patient.[facility] HospitalIn the event this information is protected by the Federal Confidentiality of Alcohol and Drug Abuse Patient Records regulations: The Federal rules restrict any use of the information to criminally investigate or prosecute any alcohol or drug abuse patient.[facility] HospitalIn the event this information is protected by the Federal Confidentiality of Alcohol and Drug Abuse Patient Records regulations: The Federal rules restrict any use of the information to criminally investigate or prosecute any alcohol or drug abuse patient.[facility] HospitalIn the event this information is protected by the Federal Confidentiality of Alcohol and Drug Abuse Patient Records regulations: The Federal rules restrict any use of the information to criminally investigate or prosecute any alcohol or drug abuse patient.[facility] HospitalIn the event this information is protected by the Federal Confidentiality of Alcohol and Drug Abuse Patient Records regulations: The Federal rules restrict any use of the information to criminally investigate or prosecute any alcohol or drug abuse patient.[facility] HospitalIn the event this information is protected by the Federal Confidentiality of Alcohol and Drug Abuse Patient Records regulations: The Federal rules restrict any use of the information to criminally investigate or prosecute any alcohol or drug abuse patient.[facility] HospitalIn the event this information is protected by the Federal Confidentiality of Alcohol and Drug Abuse Patient Records regulations: The Federal rules restrict any use of the information to criminally investigate or prosecute any alcohol or drug abuse patient.[facility] HospitalIn the event this information is protected by the Federal Confidentiality of Alcohol and Drug Abuse Patient Records regulations: The Federal rules restrict any use of the information to criminally investigate or prosecute any alcohol or drug abuse patient.[facility] HospitalIn the event this information is protected by the Federal Confidentiality of Alcohol and Drug Abuse Patient Records regulations: The Federal rules restrict any use of the information to criminally investigate or prosecute any alcohol or drug abuse patient.[facility] Reason for Visit (unrecogniz ed section and content) Reason Comments Consult Reason Comments Bronchoscopy Scheduling- CLEARED- Robot candidate Initial bronch request Reason Comments Outside Lab Results Reason Comments Results Outside Lab Results Reason Comments FAXED PATH PER [facility] Reason Comments External Referrals/resources Reason Comments Consult Reason Comments Request Outside Medical Records Reason Comments Schedule Surgery VATS Pleurodesis Reason Comments Pre-Op Exam Reason Comments Radiology NM Specialty Diagnoses / Procedures Referred By Contac t Referred To Contact MOLECULAR [facility] FUNCTIONAL IMAGING Diagnoses Encounter for other preprocedural examination Pleural effusion SOB (shortness of breath) Procedures NM CARDIAC PERF STRESS/PHARM MYOCARDIAL SPECT MULTIPLE STUDIES Sharda Wesley MD, PhD [address] [facility] [address] [place] [address] Molecular & Functional Imaging [address] [place] [address] Referral ID Status Reason Start Date Expiration Date V isits Requested Visits Authorized [id number] Closed Auto-Generate d Referral 12/28/2022 01/24/2024 1 1 Reason Comments Received Outside Medical Records Reason Comments Established Patient Reason Comments Radio Main J1 Reason Comments Post-Op Visit Reason Comments Appointment Confirmation Reason Comments Consult Hoarseness/ intermit tent dysphagia, sx since surgery in 02/01/23 Specialty Diagnoses / Procedures Referred By Contac t Referred To Contact Ent - Otolaryngology Diagnoses Hoarseness Procedures CONSULT TO ENT OFFICE/OUTPATIENT [facility] 60-74 MINUTES Savannah Lechuga, [employer] [address] [place] [address] Referral ID Status Reason Start Date Expiration Date V isits Requested Visits Authorized [id number] Closed PCP Requested Referral 03/28/2023 03/27/2024 1 1 Reason Comments Schedule Surgery Left Pleurex Cath Reason Comments Home Care CONFIRMATION CALL Reason Comments Schedule and Confirm Appointments Reason Comments Home Care Reason Comments Tumor Board Leukemia Radiology CT Specialty Diagnoses / Procedures Referred By Contac t Referred To Contact CT IMAGING Diagnoses Malignant neoplasm of lung, unspecified laterality, unspecified part of lung (HCC) Procedures CT CHEST WO IVCON DIAGNOSTIC COMPUTED TOMOGRAPHY THORAX W/O CNTRST Destin Lemons MD [address] [place] [address] Ct Imaging [place] [address] Referral ID Status Reason Start Date Expiration Date V isits Requested Visits Authorized [id number] Closed Auto-Generate d Referral 06/14/2022 07/14/2023 1 1 Reason Comments Throat Problem EST... (Florentino Jameson MD ) lt vocal cord paralysis, injury to voice after surgery 02/03. Denies throat pain, difficulty swallowing. Specialty Diagnoses / Procedures Referred By Contac t Referred To Contact ENT-OTOLARYNGOLOGY Diagnoses Vocal cord paralysis Procedures LARYNGOSCOPY FLEXIBLE W/INJECTION AGMNTJ UNI DRUGS UNCLASSIFIED INJECTION RESTYLANE Florentino Jameson MD [address] [place] [id number] Matti Simeon MD [address] [place] [address] Referral ID Status Reason Start Date Expiration Date V isits Requested Visits Authorized [id number] Authorized 04/04/2023 07/14/2023 99 99 Reason Comments Home Care Questions re: appt t omorrow Care Teams (unrecognized sec tion and content) Tracer Lathe Set Up Operator Relationship Specialty Start Date End Date Vlad Dennis MD [address] [place] [address] PCP - General Family Medicine 10/21/15 Chikis Jane V [address] [place] [address] Referring Pulmonary Disease 09/13/15 Rc Laurent [address] [place] [address] Physician Oncology 10/21/15 Paul Woods MD [address] [place] [address] Physician Radiation Oncology 10/21/15 Tracer Lathe Set Up Operator Relationship Specialty Start Date End Date Vlad Dennis MD [address] [place] [address] PCP - General Family Medicine 10/21/15 Chikis Jane V [address] [place] [address] Referring Pulmonary Disease 09/13/15 Rc Laurent [address] [place] [address] Physician Oncology 10/21/15 Paul Woods MD [address] [place] [address] Physician Radiation Oncology 10/21/15 Tracer Lathe Set Up Operator Relationship Specialty Start Date End Date Vlad Dennis MD [address] [place] [address] PCP - General Family Medicine 10/21/15 Chikis Jane V [address] [place] [address] Referring Pulmonary Disease 09/13/15 Rc Laurent [address] [place] [address] Physician Oncology 10/21/15 Paul Woods MD [address] [place] [address] Physician Radiation Oncology 10/21/15 Tracer Lathe Set Up Operator Relationship Specialty Start Date End Date Vlad Dennis MD [address] [place] [address] PCP - General Family Medicine 10/21/15 Chikis Jane, Hue [address] [place] [address] Referring Pulmonary Disease 09/13/15 Rc Laurent [address] [place] [address] Physician Oncology 10/21/15 Paul Woods MD [address] [place] [address] Physician Radiation Oncology 10/21/15 Tracer Lathe Set Up Operator Relationship Specialty Start Date End Date Vlad Dennis MD [address] [place] [address] PCP - General Family Medicine 10/21/15 Chikis Jane, Hue [address] [place] [address] Referring Pulmonary Disease 09/13/15 Rc Laurent [address] [place] [address] Physician Oncology 10/21/15 Paul Woods MD [address] [place] [address] Physician Radiation Oncology 10/21/15 Tracer Lathe Set Up Operator Relationship Specialty Start Date End Date Vlad Dennis MD [address] [place] [address] PCP - General Family Medicine 10/21/15 Chikis Jane V [address] [place] [address] Referring Pulmonary Disease 09/13/15 Rc Laurent [address] [place] [address] Physician Oncology 10/21/15 Paul Woods MD [address] [place] [address] Physician Radiation Oncology 10/21/15 Tracer Lathe Set Up Operator Relationship Specialty Start Date End Date Vlad Dennis MD [address] [place] [address] PCP - General Family Medicine 10/21/15 Chikis Jane V [address] [place] [address] Referring Pulmonary Disease 09/13/15 Rc Laurent [address] [place] [address] Physician Oncology 10/21/15 Paul Woods MD [address] [place] [address] Physician Radiation Oncology 10/21/15 Tracer Lathe Set Up Operator Relationship Specialty Start Date End Date Vlad Dennis MD [address] [place] [address] PCP - General Family Medicine 10/21/15 Chikis Jane V [address] [place] [address] Referring Pulmonary Disease 09/13/15 Paul Woods MD [address] [place] [address] Physician Radiation Oncology 10/21/15 Timmy Hartmann MD [address] [place] [address] Oncology 11/23/22 Tracer Lathe Set Up Operator Relationship Specialty Start Date End Date Vlad Dennis MD [address] [place] [address] PCP - General Family Medicine 10/21/15 Chikis Jane V [address] [place] [address] Referring Pulmonary Disease 09/13/15 Paul Woods MD [address] [place] [address] Physician Radiation Oncology 10/21/15 Timmy Hartmann MD [address] [place] [address] Oncology 11/23/22 Fabian Aquiles S [address] [place] [address] Cardiology 12/26/22 Tracer Lathe Set Up Operator Relationship Specialty Start Date End Date Vlad Dennis MD [address] [place] [address] PCP - General Family Medicine 10/21/15 Chikis Jane V [address] [place] [address] Referring Pulmonary Disease 09/13/15 Paul Woods MD [address] [place] [address] Physician Radiation Oncology 10/21/15 Timmy Hartmann MD [address] [place] [address] Oncology 11/23/22 Fabian, Lettsworth S [address] [place] [address] Cardiology 12/26/22 Tracer Lathe Set Up Operator Relationship Specialty Start Date End Date Vlad Dennis MD [address] [place] [place] [address] PCP - General Family Medicine 10/21/15 Chikis Jane V [address] [place] [address] Referring Pulmonary Disease 09/13/15 Paul Woods MD [address] [place] [address] Physician Radiation Oncology 10/21/15 Timmy Hartmann MD [address] [place] [address] Oncology 11/23/22 Fabian, Aquiles S [address] [place] [address] Cardiology 12/26/22 Tracer Lathe Set Up Operator Relationship Specialty Start Date End Date Vlad Dennis MD [address] [place] [address] PCP - General Family Medicine 10/21/15 Chikis Jane V [address] [address] Referring Pulmonary Disease 09/13/15 Paul Woods MD [address] [place], [place] [address] Physician Radiation Oncology 10/21/15 Timmy Hartmann MD [address] [place] [address] Oncology 11/23/22 Fabian, Aquiles S [address] [place] [address] Cardiology 12/26/22 Tracer Lathe Set Up Operator Relationship Specialty Start Date End Date Vlad Dennis MD [address] [place] [address] PCP - General Family Medicine 10/21/15 Chikis Jane V [address] [place] [address] Referring Pulmonary Disease 09/13/15 Paul Woods MD [address] [place], [place] [address] Physician Radiation Oncology 10/21/15 Timmy Hartmann MD [address] [place] [address] Oncology 11/23/22 Fabian, Aquiles S [address] [place], [place] [phone] Cardiology 12/26/22 Tracer Lathe Set Up Operator Relationship Specialty Start Date End Date Vlad Dennis MD [address] [place] [address] PCP - General Family Medicine 10/21/15 Chikis Jane V [address] [place] [address] Referring Pulmonary Disease 09/13/15 Paul Woods MD [address] [place], [place] [address]91 Physician Radiation Oncology 10/21/15 Timmy Hartmann MD [address] [place] [address] Oncology 11/23/22 Fabian, Lettsworth S [address] [place] [address] Cardiology 12/26/22 Tracer Lathe Set Up Operator Relationship Specialty Start Date End Date Vlad Dennis MD [address] [place] [address] PCP - General Family Medicine 10/21/15 Chikis Jane V [address] [place] [address] Referring Pulmonary Disease 09/13/15 Paul Woods MD [address] [place] [address] Physician Radiation Oncology 10/21/15 Timmy Hartmann MD [address] [place] [address] Oncology 11/23/22 Fabian, Lettsworth S [address] [place] [address] Cardiology 12/26/22 Tracer Lathe Set Up Operator Relationship Specialty Start Date End Date Vlad Dennis MD [address] [place] [address] PCP - General Family Medicine 10/21/15 Chikis Jane V [address] [place] [address] Referring Pulmonary Disease 09/13/15 Paul Woods MD [address] [place], [place] [address] Physician Radiation Oncology 10/21/15 Timmy Hartmann MD [address] [place] [address] Oncology 11/23/22 FabianJuan A gomezril S [address] [place] [address] Cardiology 12/26/22 Tracer Lathe Set Up Operator Relationship Specialty Start Date End Date Vlad Dennis MD [address] [address] PCP - General Family Medicine 10/21/15 Chikis Jane V [address] [place] [address] Referring Pulmonary Disease 09/13/15 Paul Woods MD [address] [place], [place] [address] Physician Radiation Oncology 10/21/15 Timmy Hartmann MD [address] [place] [address] Oncology 11/23/22 Aquiles Peralta S [address] [place] [address] Cardiology 12/26/22 Tracer Lathe Set Up Operator Relationship Specialty Start Date End Date Vlad Dennis MD [address] [place] [address] PCP - General Family Medicine 10/21/15 Chikis Jane V [address] [place] [address] Referring Pulmonary Disease 09/13/15 Paul Woods MD [address] [place] [address] Physician Radiation Oncology 10/21/15 Timmy Hartmann MD [address] [place] [address] Oncology 11/23/22 Aquiles Peralta S [address] [place] [address] Cardiology 12/26/22 Tracer Lathe Set Up Operator Relationship Specialty Start Date End Date Vlad Dennis MD [address] [place] [address] PCP - General Family Medicine 10/21/15 Chikis Jane V [address] [place] [address] Referring Pulmonary Disease 09/13/15 Paul Woods MD [address] [place] [address] Physician Radiation Oncology 10/21/15 Timmy Hartmann MD [address] [place] [address] Oncology 11/23/22 Aquiles Peralta MD [address] [place] [address] Cardiology 12/26/22 Tracer Lathe Set Up Operator Relationship Specialty Start Date End Date Vlad Dennis MD [address] [place] [address] PCP - General Family Medicine 10/21/15 Chikis Jane V [address] [place] [address] Referring Pulmonary Disease 09/13/15 Paul Woods MD [address] [place] [address] Physician Radiation Oncology 10/21/15 Timmy Hartmann MD [address] [place] [address] Oncology 11/23/22 Aquiles Peralta MD [address] [place] [address] Cardiology 12/26/22 Tracer Lathe Set Up Operator Relationship Specialty Start Date End Date Vlad Dennis MD [address] [place] [address] PCP - General Family Medicine 10/21/15 Chikis Jane V [address] [place] [address] Referring Pulmonary Disease 09/13/15 Paul Woods MD [address] [place] [address] Physician Radiation Oncology 10/21/15 Timmy Hartmann MD [address] [place] [address] Oncology 11/23/22 Aquiles Peralta MD [address] [place] [address] Cardiology 12/26/22 Tracer Lathe Set Up Operator Relationship Specialty Start Date End Date Vlad Dennis MD [address] [place] [address] PCP - General Family Medicine 10/21/15 Chikis Jane V [address] [place] [address] Referring Pulmonary Disease 09/13/15 Paul Woods MD [address] [place] [address] Physician Radiation Oncology 10/21/15 Timmy Hartmann MD [address] [place] [address] Oncology 11/23/22 Aquiles Peralta MD [address] [place] [address] Cardiology 12/26/22 Devang Magallanes RN [address] [place] [address] Microbiology Soil Scientist Post Acute Care 04/11/23 Tracer Lathe Set Up Operator Relationship Specialty Start Date End Date Vlad Dennis MD [address] [place] [address] PCP - General Family Medicine 10/21/15 Chikis Jane V [address] [place] [address] Referring Pulmonary Disease 09/13/15 Paul Woods MD [address] [place], [place] [address] Physician Radiation Oncology 10/21/15 Timmy Hartmann MD [address] [place] [address] Oncology 11/23/22 Aquiles Peralta MD [address] [place] [address] Cardiology 12/26/22 Devang Magallanes RN [address] [place] [address] Microbiology Soil Scientist Post Acute Care 04/11/23 Tracer Lathe Set Up Operator Relationship Specialty Start Date End Date Vlad Dennis MD [address] [place] [address] PCP - General Family Medicine 10/21/15 Chikis Jane V [address] [place] [address] Referring Pulmonary Disease 09/13/15 Paul Woods MD [address] [place], [place] [address] Physician Radiation Oncology 10/21/15 Timmy Hartmann MD [address] [place] [address] Oncology 11/23/22 Aquiles Peralta MD [address] [place] [address] Cardiology 12/26/22 Devang Magallanes, RN [address] [place] [address] Microbiology Soil Scientist Post Acute Care 04/11/23 Tracer Lathe Set Up Operator Relationship Specialty Start Date End Date Vlad Dennis MD [address] [place] [address] PCP - General Family Medicine 10/21/15 Chikis Jane V [address] [place] [address] Referring Pulmonary Disease 09/13/15 Paul Woods MD [address] [place] [address] Physician Radiation Oncology 10/21/15 Timmy Hartmann MD [address] [place] [address] Oncology 11/23/22 Aquiles Peralta MD [address] [place] [address] Cardiology 12/26/22 Devang Magallanes RN [address] [place] [address] Microbiology Soil Scientist Post Acute Care 04/11/23 Tracer Lathe Set Up Operator Relationship Specialty Start Date End Date Vlad Dennis MD [address] [place] [address] PCP - General Family Medicine 10/21/15 Chikis Jane V [address] [facility] [place] [address] Referring Pulmonary Disease 09/13/15 Paul Woods MD [address] [place], [place] [address] Physician Radiation Oncology 10/21/15 Timmy Hartmann MD [address] [place] [address] Oncology 11/23/22 Aquiles Peralta MD [address] [place] [address] Cardiology 12/26/22 Devang Magallanes RN [address] [place] [address] Microbiology Soil Scientist Post Acute Care 04/11/23 Tracer Lathe Set Up Operator Relationship Specialty Start Date End Date Vlad Dennis MD [address] [place] [address] PCP - General Family Medicine 10/21/15 Chikis Jane V [address] [place] [address] Referring Pulmonary Disease 09/13/15 Paul Woods MD [address] [place], [place] [address] Physician Radiation Oncology 10/21/15 Timmy Hartmann MD [address] [place] [address] Oncology 11/23/22 Aquiles Peralta MD [address] [place] [address] Cardiology 12/26/22 Devang Magallanes, RN [address] [place] [address] Microbiology Soil Scientist Post Acute Care 04/11/23 Tracer Lathe Set Up Operator Relationship Specialty Start Date End Date Vlad Dennis MD [address] [place] [address] PCP - General Family Medicine 10/21/15 Chikis Jane V [address] [place] [address] Referring Pulmonary Disease 09/13/15 Rc Laurent [address] [place] [address] Physician Oncology 10/21/15 11/22/22 Paul Woods MD [address] [place], [place] [address] Physician Radiation Oncology 10/21/15 Tracer Lathe Set Up Operator Relationship Specialty Start Date End Date Vlad Dennis MD [address] [place] [address] PCP - General Family Medicine 10/21/15 Chikis Jane V [address] [place] [address] Referring Pulmonary Disease 09/13/15 Paul Woods MD [address] [place], [place] [address] Physician Radiation Oncology 10/21/15 Timmy Hartmann MD [address] [place] [address] Oncology 11/23/22 Aquiles Peralta MD [address] [place] [address] Cardiology 12/26/22 Devang Magallanes, DUGLAS [address] [place], [place] 277[address] Microbiology Soil Scientist Post Acute Care 04/11/23 Tracer Lathe Set Up Operator Relationship Specialty Start Date End Date Vlad Dennis MD [address] [place] [address] PCP - General Family Medicine 10/21/15 Chikis Jane V [address] [place] [address] Referring Pulmonary Disease 09/13/15 Paul Woods MD [address] [place], [place] [address] Physician Radiation Oncology 10/21/15 Timmy Hartmann MD [address] [place] [address] Oncology 11/23/22 Aquiles Peralta MD [address] [place] [address] Cardiology 12/26/22 Devang Magallanes, RN [address] [place], [place] [address] Microbiology Soil Scientist Post Acute Care 04/11/23 Tracer Lathe Set Up Operator Relationship Specialty Start Date End Date Vlad Dennis MD [address] [facility] [place] [address] PCP - General Family Medicine 10/21/15 Chikis Jane V [address] [facility] [place] [address] Referring Pulmonary Disease 09/13/15 Paul Woods MD [address] [place] [address] Physician Radiation Oncology 10/21/15 Timmy Hartmann MD [address] [place] [address] Oncology 11/23/22 Aquiles Peralta MD [address] [place] [address] Cardiology 12/26/22 Devang Magallanes RN [address] [place] [address] Microbiology Soil Scientist Post Acute Care 04/11/23 Tracer Lathe Set Up Operator Relationship Specialty Start Date End Date Vlad Dennis MD [address] [place] [address] PCP - General Family Medicine 10/21/15 Chikis Jane V [address] [place] [address] Referring Pulmonary Disease 09/13/15 Paul Woods MD [address] [place], [place] [address] Physician Radiation Oncology 10/21/15 Timmy Hartmann MD [address] [place], [place] [address] Oncology 11/23/22 Aquiles Peralta MD [address] [place], [place] [address] Cardiology 12/26/22 Devang Magallanes RN [address] [place] [address] Microbiology Soil Scientist Post Acute Care 04/11/23 INFORMATION SOURCE (unrecogn ized section and content) DATE CREATED AUTHOR AUTHOR'S ORGANIZ ATION 02/06/2023 [facility] DATE CREATED AUTHOR AUTHOR'S ORGANIZ ATION 07/21/2023 [facility] FOR RECORDS PERTAINING TO PATIENTS WHO ARE OR HAVE BEEN ENROLLED IN A CHEMICAL DEPENDENCY/SUBSTANCEABUSE PROGRAM, SOME INFORMATION MAY BE OMITTED. This clinical summary was aggregated from multiple sources. Caution should be exercised in using it in the provision of clinical care. This summary normalizes information from multiple sources, and as a consequence, information in this document may materially change the coding, format and clinical context of patient data. In addition, data may be omitted in some cases. CLINICAL DECISIONS SHOULD BE BASED ON THE PRIMARY CLINICAL RECORDS. [facility] [employer] [facility]. provides no warranty or guarantee of the accuracy or completeness of information in this document.
== END | disposition home or self-care (01) ==
LOC: PSN 06:52
PROVIDERS: PCP Family Medicine; Referring Provider Internal Medicine Medical Oncology; Visit Provider Internal Medicine Medical Oncology
DX: C34.90 Malignant neoplasm of unspecified part of unspecified bronchus or lung (principal); C78.7 Secondary malignant neoplasm of liver and intrahepatic bile duct; Z51.81 Encounter for therapeutic drug level monitoring; Z79.899 Other long term (current) drug therapy
CPT/HCPCS: 93005

== ENCOUNTER → 2023-08-29 | Outpatient (CLI) | payer MEDICARE, OTHER, SELFPAY ==
--- NOTE | 2023-08-29 09:57 | CT_ITS ---
STUDY: CT CHEST T ABDOMEN WITH CONTRAST REASON FOR EXAM: Female, 77 years old. LUNG CA-IV ONLY RADIATION DOSAGE (If Supplied By Facility): CTDIvol = ( 10.36 ) mGy, DLP = ( 489.13 ) mGycm TECHNIQUE: Transaxial imaging was performed following intravenous administration of IV 100mL Isovue-370. Multiplanar coronal and sagittal images were reformatted. Individualized dose optimization techniques were used for this CT. COMPARISON: Comparison is made with prior study dated June 14, 2023. FINDINGS: CHEST Stable spiculated irregular nodular mass in the left lung apex measuring 2.3 cm x 2.4 cm. Air bronchograms seen within it suggestive of a chronic scarring. This extends into the medial aspect of the left upper lobe adjacent to the mediastinum. There is irregular soft tissue density adjacent to the left medial mediastinum extends caudad into the left hilar region. This has progressed as compared to prior study. The previously seen nodular density in the peripheral lateral aspect of the left upper lobe has increased in size. It presently measures 1.3 cm. Stable left pleural effusion with nodular changes at the left lung base. There is evidence of bronchiectasis in the superior medial aspect of the right lower lobe as well as in the region of the right hilum suggestive of postobstructive pneumonitis and scarring. This is also evidence of a stable spiculated nodule in the right lung apex. Bilateral pleural thickening. Left pleural plaque calcification. A small caliber drainage tube is once again seen in the left pleural cavity. Mild pericardial thickening. There is atherosclerotic calcification of the aortic arch with tortuosity and elongation of the aortic arch and descending thoracic aorta. There are multi-level degenerative changes of the thoracic spine. ABDOMEN Normal liver. The gallbladder is contracted. Normal spleen. Normal pancreas. Normal bilateral adrenal glands. Normal right kidney. Normal left kidney. Normal visualized stomach. Normal small intestine. Normal colon. The appendix is visualized and appears normal. There is diffuse atherosclerotic calcification of the abdominal aorta, without a demonstrated aneurysm. Normal inferior vena cava. Normal retroperitoneum. Normal abdominal wall. There are diffuse degenerative changes of the visualized lumbar spine. CT/CT Chest AND Abd W/ Contrast IMPRESSION: Slight increase in size of the pulmonary nodule in the left upper lobe as described. Progressive soft tissue density along the superior medial left side of the mediastinum with nodular appearance. Electronically Signed: Kingsley Clements MD at 14:40 EST ,
== END | disposition home or self-care (01) ==
LOC: CT 09:56
PROVIDERS: PCP Family Medicine; Referring Provider Internal Medicine Medical Oncology; Visit Provider Internal Medicine Medical Oncology
DX: C34.92 Malignant neoplasm of unspecified part of left bronchus or lung (principal)
CPT/HCPCS: 71260; 74160; Q9967

== ENCOUNTER 2023-09-17 08:49 | Day surgery (SDC) | payer MEDICARE, OTHER, SELFPAY ==
[2023-09-17] VITALS (7 sets, daily range): BP systolic 118–153; BP diastolic 70–95; PULSE 97–110; RESP 16; TEMP 36.2–36.6; O2SAT 95–100; BMI 19.0
[2023-09-17] MEDS: Lactated Ringers 1,000 ML 15 ML IV (09:23)
--- NOTE | 2023-09-17 09:44 | PCM.HP.BLA ---
History and Physical Date of Admission: 09/17/23 Date of Service: 09/10/23 MR#: [id number] Acct: [id number] Name: GEE LAURA Rep #: [id number] : 1945 Provider: Dr. Chacha Scott MD Age/Sex: 78/F Location: [facility] Status: Signed Intake Vital Signs 09/05/2410:31 09/10/2408:01 Height 5 ft 1 in 5 ft 1 in Weight: 103 lb 9 oz 104 lb 6 oz BMI 19.5 19.7 BP 132/78 H 152/83 H Blood Pressure Location Rt brachial Rt brachial Position Sitting Sitting Respiration 18 19 H Pulse 102 H 110 H Pulse Source Monitor Monitor Temp 98.2 F 97.6 F L Temp Source Temporal Pulse Oximetry (%) 95 85 Oxygen Delivery Method room air room air Intake Visit Reasons: PORT PLACEMENT Chief Complaint: port placement Environmental Emergencies Planner Required: No Is patient in pain?: No Allergies adhesive tape Allergy (Verified 09/10/23 09:02) Itchingipratropium [From Atrovent] Allergy (Verified 09/10/23 09:02) Rashterbinafine HCl [From Lamisil] Allergy (Verified 09/10/23 09:02) Rashlactose Adverse Reaction (Verified 09/10/23 09:02) Upset Stomach Medications multivitamin with folic acid 400 mcg tablet 1 tab PO DAILY SUPPLEMENT 09/16/14 [History Confirmed 09/10/23] cholecalciferol (vitamin D3) 25 mcg (1,000 unit) tablet 1,000 unit PO DAILY supplement 05/04/19 [History Confirmed 09/10/23] loperamide 2 mg capsule (Imodium A-D) 2 mg PO Q4H PRN diarhea 08/12/19 [History Confirmed 09/10/23] tiotropium bromide 18 mcg capsule with inhalation device (Spiriva with HandiHaler) 2 cap inhalation DAILY COPD 02/11/20 [History Confirmed 09/10/23] Lactobacillus rhamnosus GG 15 billion cell sprinkle capsule (Culturelle) 1 cap PO DAILY probiotic 12/29/20 [History Confirmed 09/10/23] dicyclomine 20 mg tablet 20 mg PO BID COLITIS 12/29/20 [History Confirmed 09/10/23] valacyclovir 500 mg tablet ea PO 05/31/22 [History Confirmed 09/10/23] erythromycin 5 mg/gram (0.5 %) eye ointment 1 applic ophthalmic (eye) DAILY 06/15/22 [History Confirmed 09/10/23] spironolactone 50 mg tablet (Aldactone) 50 mg PO DAILY #30 tabs 11/08/22 [Rx Confirmed 09/10/23] albuterol sulfate 90 mcg/actuation aerosol inhaler (Ventolin HFA) 2 puff inhalation Q6H PRN 02/22/23 [History Confirmed 09/10/23] esomeprazole magnesium 20 mg capsule,delayed release 20 mg PO DAILY 02/22/23 [History Confirmed 09/10/23] ibuprofen 400 mg tablet 400 mg PO Q6H PRN 02/22/23 [History Confirmed 09/10/23] polyethylene glycol 3350 17 gram/dose oral powder 4 g PO DAILY 02/22/23 [History Confirmed 09/10/23] vitamin E (dl, acetate) 180 mg (400 unit) capsule 180 mg PO DAILY 02/22/23 [History Confirmed 09/10/23] osimertinib 80 mg tablet (Tagrisso) 80 mg PO DAILY 06/18/23 [History Confirmed 09/10/23] carvedilol 25 mg tablet 12.5 mg PO BID 07/05/23 [History Confirmed 09/10/23] PFSH Medical History Anemia Anxiety Bilateral pulmonary embolism (11/06/14) Colitis COPD (chronic obstructive pulmonary disease) Depression Dyspepsia and disorder of function of stomach Encounter for education Encounter for monitoring cardiotoxic drug therapy Essential hypertension Exertional dyspnea Exertional dyspnea Headache Hepatitis A HTN (hypertension) Hydronephrosis with ureteral calculus Lung cancer Lung mass Non-small cell lung cancer (NSCLC) Raynauds disease Skin cancer Ulcerative colitis Surgical History EBUS guided biopsy H/O hernia repair History of appendectomy History of bronchoscopy History of hysterectomy History of thoracentesis History of tonsillectomy Hx of cholecystectomy Malignant pleural effusion (02/07/23) ulnar nerve release left elbow Family History Father Liver diseaseMother Uterine cancerBrother Myocardial infarction, Onset Age: 60 Social History (Updated 09/10/23 @ 09:01 by Bethanie Dotson LPN) Smoking Status: Former smoker Tobacco: How many years used: 40 second hand exposure: No alcohol intake: never details: occasionally substance use type: does not use HPI HPI HPI: 78-year-old female presents for port placement due to lung cancer. Patient previously had a port placed in [id number] left IJ due to lung cancer and chemo. ROS General General: Yes weight change (loss of 32 lbs unintentional ) HEENT HEENT: Yes difficulty swallowing Resp Respiratory: Yes shortness of breath and Yes COPD Gastro Gastrointestinal: Yes diarrhea Exam Const General: cooperative, healthy appearing, comfortable and no acute distress HENMT Head: normocephalic and atraumatic Neck Neck: supple Chest Other: Well-healed left chest previous port site, palpation to bilateral upper chest normal Resp Effort & Inspection: normal respiratory effort Cardio Rate: regular rate GI Inspection: non-distended Skin General: no rashes or lesions noted Neuro General: CN's II-XI intact bilaterally Extrem General: normal to inspection Psych Mental Status: mental status grossly normal Attitude: cooperative Assessment and Plan Assessment and Plan (1) Encounter for insertion of venous access port: Status: Acute (2) NSCLC of left lung: Status: Chronic Comment: New Left lung NSCLC adenocarcinoma stage IV-(T3 N0 M1a) 2 nodules in the same lobe. Thoracentesis of L pleural effusion with cytology on 11/28/2020 showed shows adenocarcinoma, EGFR L858A positive. She had diarrhea with Gilotrif which has resolved. Restarted 30mg every other day, diarrhea occurred again so off since the middle of January. Start 30mg every 3 days on 03/01/2021. CT 05/28/2022 shows increasing AKHIL mass, need to rule refractory/Progressive disease. Stopped Gilotrif 30mg every 3 days on 09/11/2022. Biopsy of AKHIL mass on 06/29/2022 showed adenocarcinoma, Kras G12C positive, PD-L1 positive TPS 30%. Started Lumakras on 09/17/2022. CT 10/15/2022 demonstrates stability of AKHIL mass, increase in size of left pleural effusion, increase size of lingular nodule. Resume Gilotrif in October 2022 because pleural fluid cytology showed EGFR positive adenocarcinoma. CT 01/18/2023 shows decrease in AKHIL mass. 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 Now on Tagrisso. Comes for follow up. Feeling better, SOB has improved. CT 06/14/2023 shows stable changes with decrease L effusion, ? new nodule LLL. Comes for follow up. CT 09/03/2023 reviewed, shows progressive disease in L lung nodules. Discussed progressive disease, treatment with chemotherapy and immunotherapy, risks, benefits and side effects. Pt agrees to proceed. (3) History of lung cancer in adulthood: Status: Chronic Comment: S/P chemotherapy and Radiation to Right lung. Plan I have discussed above with the patient- Port-a-Cath placement. Right IJ possible left Patient has been counseled as to the risks/benefits of the procedure. I have explained the risks of the surgery, including but not limited to: infection, bleeding, injury to any blood vessels/nerves, injury to lungs (such as pneumothorax or hemothorax and need for chest tube), not having any access, nonfunctioning of port due to thrombosis, infection of port, etc. the patient understands and agrees to proceed. I have answered all the patient's questions to the patient?s satisfaction and the patient has no further questions. Chacha Scott M.D. Pager: [phone] [facility] [address] [place] [address], [facility], [address] [place] [address] Office: [phone] Coding Level of Care Code Off vis,new,level 3 Diagnoses Encounter for insertion of venous access port Z45.2 NSCLC of left lung C34.92 History of lung cancer in adulthood Z85.118 09/10/23 1011 <Electronically signed by Chacha Scott MD> Date Chacha Scott MD
[2023-09-17] MEDS: Cefazolin 2 GM in 0.9% Normal Saline (100mL Bag) 100 ML IV (10:05)
[2023-09-17] MEDS: Lidocaine 1% /Epi 1:100 (20ml) 20 ML Vial (10:18)
[2023-09-17] MEDS: Bupivacaine Mpf 0.5% 30 ML VIAL (10:18)
--- NOTE | 2023-09-17 10:45 | PCM.OPRPT ---
Report of Operation Date of Procedure: 09/17/23 Pre-Operative Diagnosis: Z45.2, lung cancer Post-Operative Diagnosis: Same Surgery/Procedure Performed:: 1. Placement of right IJ Port-A-Cath 2. Use of ultrasound 3. Use of fluoroscopy Surgeon: Chacha Scott Type of Anesthesia: Local MAC Anesthesiologist: Agusto Ying Special Medications: Ancef 2 g IV x 1 Specimen's removed: None Estimated Blood Loss (mL): < 10 cc Description of Procedure: After informed consent was given, the patient was brought to the operating room and placed in the supine position. Appropriate time out protocol was followed. Patient was then given IV conscious sedation for anesthesia. The patient's right upper chest and neck were then prepped with a surgical skin preparation and sterile surgical drapes were placed. After proper landmarks were ascertained, the skin at the upper right chest area was then infiltrated with 1:1 mixture of 1% lidocaine with epinephrine and 0.5% marcaine. A needle trocar was then inserted into the right internal jugular vein with ultrasound guidance-multiple vessels were viewed with u/s and the right IJ was chosen-- and there was good aspiration of venous blood. A wire was then threaded into the needle trocar and this was visualized under fluoroscopy to ensure that the wire was in the superior vena cava. Once this was done, then the needle trocar was removed. A small skin celia was made with an 11 blade knife at the wire entrance site. The dilator with the introducer sheath attached was then placed over the wire into the right internal jugular vein via the Seldinger technique and this was visualized under fluoroscopy. The dilator and sheath were in proper position as visualized by fluoroscopy. A subcutaneous pocket was then created caudad to the catheter insertion site. A transverse skin incision was made after the skin and subcutaneous tissues were infiltrated with local anesthetic. Blunt dissection was then used to create a space large enough for placement of the subcutaneous port. The catheter was then tunneled into the subcutaneous pocket. The wire and dilator were then removed. The catheter was then threaded into the introducer sheath and was positioned with its tip at the junction of the superior vena cava and the right atrium as visualized under fluoroscopy. The excess catheter was transected. The catheter was then attached to the subcutaneous port using manufacturers guidelines. The catheter was flushed with a heparin saline mixture prior to placement. Hemostasis was carefully controlled with electrocautery. The port was sutured to the subcutaneous fascia using 2-0 Vicryl suture at two sites. The port was then placed in the subcutaneous pocket. The incision were reapproximated with interrupted subdermal 3-0 vicryl sutures. The skin was reapproximated with 3-0 nylon suture in a interrupted fashion. Steristrips were used for reinforcement of the skin closure at IJ insertion site and a sterile opsite dressings were applied. The patient tolerated the procedure well. Grafts/Implants Used: Bard PowerPort isp M.R.I. 6Fr Lot [id number] [id number] Complications none
--- NOTE | 2023-09-17 10:47 | DCINST_ITS ---
Discharge Instructions Procedure Port-A-Cath Diet Discharge Diet: Light diet - advance as tolerated Activity May shower in (days): 5 (Keep port site clean and dry x5 days. Neck incision okay to get wet after 1 day. Okay to lower shower and upper sponge bath. OR okay to taper off port site with a Ziploc bag to shower) Lifting Restrictions: No lifting > 15 pounds for 3 days with the arm on the side of the port Dressing / Incision Call your doctor if your incision/area has: Continuous Slow Oozing, Sudden Increased Bleeding, Increased Pain/ Swelling, Increased Redness, Foul Smelling Discharge and Swelling at the incision site Call your doctor if you observe: Fever of 101 or Higher Change Dressing in: 2 days (2-3 days- port site; ok to remove neck opsite in 1 day) Follow Up Care Please Follow Up With: Chacha Scott MD When: In 10 days for permanent suture removal?call office for appointment Test Results: Test results from this visit will be discussed in further detail at your follow- up appointment, if applicable. Discharge Plan Admission Attending Provider: Chacha Scott Primary Care Provider: Vlad Dennis Discharge Orders/Prescriptions Prescriptions: Continued loperamide [Imodium A-D] 2 mg capsule 2 mg PO Q4H PRN (Reason: diarhea) Rx Instructions: after each loose stool until symptoms controlled;do not exceed 16 mg total dose in 24 hrs Spiriva with HandiHaler 18 mcg capsule, w/inhalation device 2 cap INHALATION DAILY Rx Instructions: puncture 1 cap using device; one dose = 2 inhalations Culturelle 15 billion cell capsule, sprinkle 1 cap PO DAILY valacyclovir 500 mg tablet 500 mg PO DAILY Patient Comments: TAKE 1 TABLET BY MOUTH THREE TIMES DAILY DIRECTED ibuprofen 400 mg tablet 400 mg PO Q6H PRN (Reason: pain) albuterol sulfate [Ventolin HFA] 90 mcg/actuation HFA aerosol inhaler 2 puff inhalation Q6H PRN (Reason: shortness of breath or wheezing) esomeprazole magnesium 20 mg capsule,delayed release(DR/EC) 40 mg PO BID vitamin E (dl, acetate) 180 mg (400 unit) capsule 180 mg PO DAILY Tagrisso 80 mg tablet 80 mg PO DAILY carvedilol 25 mg tablet 12.5 mg PO BID Rx Instructions: must administer with a meal/food ondansetron 8 mg tablet,disintegrating 8 mg PO Q8H PRN (Reason: nausea and vomiting) Qty: 30 2RF lidocaine-prilocaine 2.5-2.5 % cream 1 applic topical ONCE PRN (Reason: port access) 30 Days Qty: 30 2RF dexamethasone 4 mg tablet 4 mg PO .COMPLEX Qty: 40 0RF Rx Instructions: 4 mg orally twice a day ONLY the day before, the day of, and the day after chemotherapy folic acid 1 mg tablet 1 mg PO DAILY Qty: 90 1RF multivitamin with folic acid 1 TABLET tablet 1 tab PO DAILY Patient Comments: supplement dicyclomine 20 mg tablet 20 mg PO 4X/DAY Patient Comments: abdominal agent cholecalciferol (vitamin D3) 1,000 UNIT tablet 1,000 unit PO DAILY Referrals / Follow Up: Vlad Dennis MD [Primary Care Provider] - Disposition Disposition (needs filled in before D/C Order can be placed): Home, Self Care
--- NOTE | 2023-09-17 11:03 | RAD_ITS ---
INDICATION: port EXAMINATION/TECHNIQUE: X-RAY - XR Chest 1 View COMPARISON: December 25, [address] dated August 19, 2023 FINDINGS: LINES/DEVICES: There is a right-sided central venous catheter in place with its tip within the expected region of the superior vena cava. There is a drainage catheter projecting over the right lower lung. LUNGS: There is a stable spiculated nodular opacity within the right hilar region concerning for neoplastic process. There is a spiculated nodular opacity within the left upper lung as well also suggestive of a malignancy. There is a stable somewhat rounded ill-defined opacity within the right lower lung. There is a small left pleural effusion. No pneumothorax. MEDIASTINUM AND CARDIOVASCULAR STRUCTURES: Cardiac silhouette not enlarged. Central airways and mediastinal contour are unremarkable. BONES AND SOFT TISSUES: Unremarkable. RAD/Chest 1 View (Portable) IMPRESSION: Right-sided central venous catheter terminating within the expected region of the superior vena cava, otherwise stable examination since prior chest CT dated August 29, 2023 Electronically Signed: Carleen Richards MD at 11:31 EST ,
== END 2023-09-17 11:54 | disposition home or self-care (01) ==
LOC: SDC 08:50 → AC 08:52
PROVIDERS: PCP Family Medicine; Referring Provider Surgery; Visit Provider Surgery
PROC: (CPT 36561; principal; 2023-09-17 10:15)
DX: Z45.2 Encounter for adjustment and management of vascular access device (principal); C34.12 Malignant neoplasm of upper lobe, left bronchus or lung; J44.9 Chronic obstructive pulmonary disease, unspecified; I10 Essential (primary) hypertension; Z79.51 Long term (current) use of inhaled steroids; Z79.899 Other long term (current) drug therapy; Z87.891 Personal history of nicotine dependence
CPT/HCPCS: 36561; 00532; 71045; 77001; J7120

== ENCOUNTER 2023-09-23 13:03 | Inpatient (IN) | payer MEDICARE, OTHER, SELFPAY ==
[2023-09-23] VITALS (14 sets, daily range): BP systolic 113–129; BP diastolic 67–80; PULSE 104–117; RESP 18–27; TEMP 36.4–36.8; O2SAT 68–97; BMI 21.2; BMI 21.3; BMI 20.2
--- NOTE | 2023-09-23 13:55 | EDS_ITS ---
HPI History of Present Illness Chief Complaint: Shortness of Breath Informant: patient Onset/Context/Timing Onset: Yesterday Context: gradual Timing: Continuous Quality: Positive for Dyspnea on exertion Worsened by: Exertion Relieved by: Rest Associated Symptoms rhinorrhea; Negative for cough, post nasal drip, ear pain, fever, sore throat, chills, clear sputum, white sputum, yellow sputum or green sputum Chest Pain: Positive for None Narrative Narrative: Patient presents with shortness of breath that began yesterday. Patient states it is gradually gotten worse. Patient states her breathing is worse with any exertion. Patient states it is better with rest. Patient admits to some rhinorrhea but denies any cough. Patient denies any fevers or chills. Patient denies any chest pain. Patient has a history of lung cancer and had chemot herapy 5 days ago. Patient also had a recent med port placement. PE Risk Factors: Positive for Cancer and Recent surgery; Negative for Prior DVT or PE, Recent immobilization or Recent travel [facility] Medical History Alcohol use Anxiety Bilateral pulmonary embolism (11/06/14) Cancer Cardiology follow-up encounter Colitis COPD (chronic obstructive pulmonary disease) Dyspepsia and disorder of function of stomach Encounter for education Encounter for monitoring cardiotoxic drug therapy Encounter for vitamin B12 injection while on pemetrexed chemotherapy Essential hypertension Exertional dyspnea Exertional dyspnea Former smoker Gastric reflux Headache Hepatitis A History of echocardiogram History of hepatitis A virus infection History of pulmonary embolus (PE) History of stress test History of tachycardia Hydronephrosis with ureteral calculus Lung cancer Lung mass Non-small cell lung cancer (NSCLC) Raynauds disease Shortness of breath on exertion Skin cancer Ulcerative colitis Wears dentures Wears glasses Home Medications multivitamin with folic acid 400 mcg tablet 1 tab PO DAILY SUPPLEMENT 09/16/14 [History Last Taken 09/16/21] cholecalciferol (vitamin D3) 25 mcg (1,000 unit) tablet 1,000 unit PO DAILY supplement 05/04/19 [History Last Taken 09/16/21] loperamide 2 mg capsule (Imodium A-D) 2 mg PO Q4H PRN diarhea 08/12/19 [History Last Taken Unknown] tiotropium bromide 18 mcg capsule with inhalation device (Spiriva with HandiHaler) 2 cap inhalation DAILY COPD 02/11/20 [History Last Taken 09/17/23] Lactobacillus rhamnosus GG 15 billion cell sprinkle capsule (Culturelle) 1 cap PO DAILY probiotic 12/29/20 [History Last Taken Unknown] dicyclomine 20 mg tablet 20 mg PO 4X/DAY COLITIS 12/29/20 [History Last Taken 09/16/21] valacyclovir 500 mg tablet 500 mg PO DAILY 05/31/22 [History Last Taken Unknown] albuterol sulfate 90 mcg/actuation aerosol inhaler (Ventolin HFA) 2 puff inhalation Q6H PRN shortness of breath or wheezing 02/22/23 [History Last Taken 09/17/23] esomeprazole magnesium 20 mg capsule,delayed release 40 mg PO BID GERD 02/22/23 [History Last Taken Unknown] ibuprofen 400 mg tablet 400 mg PO Q6H PRN pain 02/22/23 [History Last Taken Unknown] vitamin E (dl, acetate) 180 mg (400 unit) capsule 180 mg PO DAILY 02/22/23 [History Last Taken Unknown] osimertinib 80 mg tablet (Tagrisso) 80 mg PO DAILY 06/18/23 [History Last Taken Unknown] carvedilol 25 mg tablet 12.5 mg PO BID 07/05/23 [History Last Taken Unknown] dexamethasone 4 mg tablet 4 mg PO .COMPLEX #40 tabs 09/12/23 [Rx Last Taken Unknown] folic acid 1 mg tablet 1 mg PO DAILY #90 tabs 09/12/23 [Rx Last Taken Unknown] lidocaine-prilocaine 2.5 %-2.5 % topical cream 1 applic topical ONCE PRN port access 30 days #30 grams 09/12/23 [Rx Last Taken Unknown] ondansetron 8 mg disintegrating tablet 8 mg PO Q8H PRN nausea and vomiting #30 tabs 09/12/23 [Rx Last Taken Unknown] losartan 50 mg tablet 25 mg PO DAILY 09/23/23 [History Last Taken Unknown] Allergy/AdvReac Type Severity Reaction Status Date / Time adhesive tape Allergy Itching Verified 09/23/23 13:08 ipratropium [From Atrovent] Allergy Rash Verified 09/23/23 13:08 terbinafine HCl Allergy Rash Verified 09/23/23 13:08 [From Lamisil] lactose AdvReac Upset Verified 09/23/23 13:08 Stomach Family History Father Liver disease Mother Uterine cancer Brother Myocardial infarction, Onset Age: 60 Surgical History EBUS guided biopsy H/O hernia repair History of appendectomy History of bronchoscopy History of colonoscopy History of hysterectomy History of thoracentesis History of tonsillectomy Hx of cholecystectomy Malignant pleural effusion (02/07/23) ulnar nerve release left elbow Social History Smoking Status: Former smoker Tobacco: How many years used: 40 second hand exposure: No alcohol intake: never details: occasionally substance use type: does not use ROS ROS ED Constitutional Constitutional ED: Denies chills or fever(s) Eyes Eyes: Denies blurry vision or change in vision ENT ENT ED: Denies rhinorrhea or sore throat Cardiovascular Cardiovascular: Denies chest pain or palpitations Respiratory/Chest Respiratory/Chest: Reports dyspnea; Denies cough Gastrointestinal Gastrointestinal: Denies nausea or vomiting Genitourinary Genitourinary ED: Denies dysuria or hematuria Musculoskeletal Musculoskeletal: Denies back pain or neck pain Integumentary Denies abscess or rash Neurologic Neurologic: Denies headache(s) or weakness Allergic/Immunologic Allergic/Immunologic ED: Denies mouth swelling or urticaria EXAM Physical Exam Const Vital Signs: 09/23/23 13:04 09/23/23 13:48 09/23/23 13:40 Temperature 97.5 F L 97.5 F L Temperature Source Temporal Temporal Pulse Rate 117 H 111 H Respiratory Rate 26 H 20 H Respiratory Effort Short of Breath Respiratory Pattern Tachypnea Blood Pressure 121/72 H 122/74 H Blood Pressure Mean 88 90 Pulse Ox 95 95 Oxygen Delivery Method Room Air Room Air Room Air Oxygen Flow Rate (L/min) 09/23/23 14:30 09/23/23 15:00 09/23/23 16:35 Temperature Temperature Source Pulse Rate 109 H 108 H Respiratory Rate 24 H 25 H Respiratory Effort Respiratory Pattern Blood Pressure 113/69 129/72 H Blood Pressure Mean 81 89 Pulse Ox 68 Oxygen Delivery Method Room Air Oxygen Flow Rate (L/min) 09/23/23 16:35 09/23/23 16:00 Temperature Temperature Source Pulse Rate 104 H Respiratory Rate 19 H Respiratory Effort Respiratory Pattern Blood Pressure 128/71 H Blood Pressure Mean 88 Pulse Ox 97 92 Oxygen Delivery Method Nasal Cannula Oxygen Flow Rate (L/min) 3 Positive well nourished and well developed General Appearance ED: well developed HEENT Reports moist mucous membranes atraumatic Neck supple and no JVD Resp normal respiratory effort Auscultation: diminished lung sounds diffuse Cardio regular rhythm Rate: tachycardic GI non-tender and non-distended Palpation: soft Neuro oriented x3, CN's II-XII intact bilaterally and no sensory deficits noted [place] Coma Scale: document GCS findings Spontaneous Obeys Commands Oriented 15 Sensorium / Orientation: alert Speech: speech normal Motor Exam: strength 5/5 throughout Psych mental status grossly normal MDM MDM MDM Narrative Medical decision making narrative: Differential diagnosis includes cardiac dysrhythmia, cardiac ischemia, pulmonary embolism, pneumonia, pneumothorax, electrolyte abnormality, and chemotherapy side effect. EKG will be obtained to assess for cardiac dysrhythmia and cardiac ischemia. CTA of the chest will be obtained to assess for pulmonary embolism, pneumonia, pneumothorax, and aortic dissection. CBC will be obtained to assess for leukocytosis and anemia. Basic metabolic profile will be obtained to assess for electrolyte abnormality and renal function. PT with INR and PTT will be obtained to assess for coagulopathy. High-sensitivity troponin will be obtained to assess for cardiac ischemia. Lab Data Attestation: I reviewed the patient's lab results. Lab results narrative: CBC was reviewed. Hemoglobin was low at 8.7 and hematocrit was 28.4. These are slightly lower than previous results. Basic metabolic profile was reviewed and was essentially within normal limits. PT was INR and PTT were reviewed and were within normal limits. High-sensitivity troponin was reviewed and was normal at 6. Labs: Laboratory Results - last 24 hr 09/23/23 14:30 WBC 8.9 RBC 3.21 L Hgb 8.7 L Hct 28.4 L MCV 88.5 MCH 27.1 MCHC 30.6 L RDW Std Deviation 46.3 H RDW Coeff of [place] 14.3 Plt Count 198 MPV 9.9 Immature Gran % (Auto) 0.500 Neut % (Auto) 94.9 H Lymph % (Auto) 3.7 L [place] % (Auto) 0.7 Eos % (Auto) 0.1 Baso % (Auto) 0.1 Absolute Neuts (auto) 8.4 H Absolute Lymphs (auto) 0.33 L Nucleated RBC % 0 Differential Comment SEE COMMENT Atypical Lymphocytes RARE Platelet Estimate ADEQUATE RBC Morphology N CHROM Anisocytosis RARE PT 14.6 INR 1.1 APTT 27.0 Sodium 134 L Potassium 4.2 Chloride 102 Carbon Dioxide 28.0 Anion Gap 4 L BUN 24 H Creatinine 0.92 Estim Creat Clear Calc 40.50 Est GFR (MDRD) Af Amer 76 Est GFR (MDRD) Non-Af 63 BUN/Creatinine Ratio 26.0 H Glucose 146 H Calcium 8.3 L Troponin I High Sens 6 Radiography Diagnostic Testing: CTA of the chest was obtained. There is no evidence of pulmonary embolism. There is fluid in the major fissure. There is a small left effusion with a left infiltrate. There is also a left upper lobe lung nodule. This was interpreted by the radiologist was also independently reviewed by myself. EKG Initial EKG: Attestation: I personally reviewed and interpreted this EKG as follows: Interpretation: Sinus Tachycardia (111) Comments: EKG was obtained. On my independent interpretation, it showed a sinus tachycardia with a rate of 111. There were occasional PVCs noted. IN interval, QRS interval, and QTc intervals were all normal. [place] was normal. There are no acute ST or T wave changes. Prior EKG tracings: available for review Prior: Unchanged (08/12/2023) Treatment and Re-Evaluation :: Patient was given IV fluids. Patient was given Rocephin and Zithromax here. Patient states she wants to go home. Patient got up to go to the bathroom and her pulse ox dropped to 68%. Patient was started on nasal cannula oxygen at 3 L. Patient's pulse oximeter improved after this. Patient is 97% on 3 L nasal cannula. Because of this, I will discuss the case with the hospitalist. Case will also be discussed with Dr. Hartmann. Discharge Plan Triage Chief Complaint: Shortness of Breath ED Provider: Solis oNbles Dx/Rx/DC Orders Clinical Impression: Pneumonia, NSCLC of left lung, Hypoxia Prescriptions: No Action loperamide [Imodium A-D] 2 mg capsule 2 mg PO Q4H PRN (Reason: diarhea) Rx Instructions: after each loose stool until symptoms controlled;do not exceed 16 mg total dose in 24 hrs Spiriva with HandiHaler 18 mcg capsule, w/inhalation device 2 cap INHALATION DAILY Rx Instructions: puncture 1 cap using device; one dose = 2 inhalations Culturelle 15 billion cell capsule, sprinkle 1 cap PO DAILY valacyclovir 500 mg tablet 500 mg PO DAILY Patient Comments: TAKE 1 TABLET BY MOUTH THREE TIMES DAILY DIRECTED ibuprofen 400 mg tablet 400 mg PO Q6H PRN (Reason: pain) albuterol sulfate [Ventolin HFA] 90 mcg/actuation HFA aerosol inhaler 2 puff inhalation Q6H PRN (Reason: shortness of breath or wheezing) esomeprazole magnesium 20 mg capsule,delayed release(DR/EC) 40 mg PO BID vitamin E (dl, acetate) 180 mg (400 unit) capsule 180 mg PO DAILY Tagrisso 80 mg tablet 80 mg PO DAILY carvedilol 25 mg tablet 12.5 mg PO BID Rx Instructions: must administer with a meal/food ondansetron 8 mg tablet,disintegrating 8 mg PO Q8H PRN (Reason: nausea and vomiting) Qty: 30 2RF lidocaine-prilocaine 2.5-2.5 % cream 1 applic topical ONCE PRN (Reason: port access) 30 Days Qty: 30 2RF dexamethasone 4 mg tablet 4 mg PO .COMPLEX Qty: 40 0RF Rx Instructions: 4 mg orally twice a day ONLY the day before, the day of, and the day after chemotherapy folic acid 1 mg tablet 1 mg PO DAILY Qty: 90 1RF multivitamin with folic acid 1 TABLET tablet 1 tab PO DAILY
--- NOTE | 2023-09-23 14:00 | CT_ITS ---
We are attempting to reach an attending provider to discuss findings. An addendum with communication details will be sent when the communication is complete. STUDY: CTA CHEST REASON FOR EXAM: Female, 78 years old. Dyspnea RADIATION DOSAGE (If Supplied By Facility): CTDIvol = ( 4.22 ) mGy, DLP = ( 128.15 ) mGycm TECHNIQUE: The examination was performed with the intravenous administration of IV 100mL Isovue-300. Post-processing of the angiographic images was performed, with multiplanar reformation and 3D reconstruction. Individualized dose optimization techniques were used for this CT. COMPARISON: 08/29/2023 FINDINGS: Tubes and lines: 1. LEFT chest tube is noted at the LEFT lung base.. CTA: PULMONARY ARTERIES: There is normal configuration and contrast opacification of the tract and main pulmonary arteries. There is subtle filling defects in several mid and proximal interlobar LEFT lower lobe pulmonary arterial branches. No filling defects noted on the RIGHT. No evidence of ventricular strain. AORTIC ARCH: The aortic arch and descending aorta have normal configuration. No evidence of dissection or aneurysmal dilatation. HEART: Cardiac contour is normal. There is pericardial thickening and a small pericardial effusion is noted.. No evidence of RIGHT ventricular strain. CT CHEST: LUNGS: [Extensive areas of volume loss consolidation and pleural thickening in the RIGHT perihilar region, as well as the LEFT lower lobe. Again noted is a area of consolidation/irregular shaped nodular mass at the LEFT apex extending to the pleural surface, estimated at approximately 3.3 x 2.2 cm (series 2: Image 201). Additionally there is a irregular shaped nodular area of pleural-parenchymal thickening along the medial aspect of the LEFT upper lobe measuring approximately 5.8 x 1.9 cm (series 2: Image 163. There are areas of irregular pleural thickening along the periphery of the RIGHT upper and RIGHT lower lobes, extending along the major fissure. Additional area of airspace consolidation volume loss along medial aspect of the RIGHT upper lobe and RIGHT lower lobe.. . PLEURAL SPACES: Pleural thickening and small amount pleural fluid is noted bilaterally.. MEDIASTINUM AND LYMPH NODES: Unremarkable. No significant adenopathy. BONES: Unremarkable ABDOMEN: Within normal limits. Other: None IMPRESSIONS: 1. Trace areas of interlobar PE involving the LEFT lower lobe pulmonary arterial tree. No evidence of proximal or sagittal embolus. No evidence of ventricular strain. 2. No CTA evidence of aortic aneurysm or dissection 3. Cardiac contour is unchanged, pericardial thickening versus small amount of pericardial fluid is noted. 4. Focal areas of airspace consolidation and areas of nodular pleural thickening. Irregular shaped nodular density in the LEFT apex without change. Small bilateral effusions are noted. 5. Small caliber LEFT pleural chest tube/drain catheter noted without change. No pneumothorax. Critical findings: Trace areas of interlobar PE involving the LEFT lower lobe pulmonary arterial tree. No evidence of proximal or sagittal embolus. No evidence of ventricular strain. Electronically Signed: Rodney Decker MD at 17:30 EDT , CT/CTA Chest W/WO Contrast IMPRESSION: undefined
--- NOTE | 2023-09-23 14:01 | EKG12_ITS ---
Test Reason : SOB Blood Pressure : / mmHG Vent. Rate : 111 BPM Atrial Rate : 111 BPM P-R Int : 118 ms QRS Dur : 078 ms QT Int : 338 ms P-R-T Axes : 053 058 049 degrees QTc Int : 459 ms Sinus tachycardia with occasional Premature ventricular complexes Otherwise normal ECG Confirmed by Paul Barr ([id number]), editorial cartoonist ZENOBIA JAVED ([id number]) on 09/24/2023 11:18:35 AM Referred By: ES/CG Confirmed By:Paul Barr
[2023-09-23] MEDS: 0.9% Normal Saline (1000mL) 1,000 ML 1000 ML IV (14:30)
[2023-09-23 14:40] LABS: Absolute Lymphocyte Count 0.33 X10^3/uL (0.83-4.51); Absolute Neutrophil Count 8.4 X10^3/uL (2.0-7.7); Basophil# 0.01 X10^3/uL; Basophil% 0.1 % (0-1); Eosinophil# 0.01 X10^3/uL; Eosinophils% 0.1 % (0-5); Hematocrit 28.4 % (37-47); Hemoglobin 8.7 g/dL (12.0-15.0); Lymphocyte # 0.33 X10^3/ul (0.83-4.51); Lymphocyte % 3.7 % (19-41); Mean Corp Hgb Conc 30.6 g/dL (32-36); Mean Corpuscular Hgb 27.1 pg (27.0-32.0); Mean Corpuscular Volume 88.5 fL (81-99); Mean Platelet Vol. 9.9 fl (6.2-12.0); Monocyte# 0.06 X10^3/uL; Monocyte% 0.7 % (0-10); NRBC Flagged by Analyzer 0 % (0-5); Neutrophil # 8.41 X10^3/uL (2.7-7.7); Neutrophil % 94.9 % (47-70); POSITIVE DIFFERENTIAL YES; POSITIVE MORPHOLOGY YES; Platelet Count 198 K/mm3 (150-450); RBC Distribution Width CV 14.3 % (11.6-14.6); RBC Distribution Width SD 46.3 fl (35.1-43.9); Red Blood Count 3.21 M/mm3 (4.2-5.4); White Blood Count 8.9 K/mm3 (4.4-11.0)
[2023-09-23 14:42] LABS: Differential Indicated SCAN CRITERIA MET
[2023-09-23 14:52] LABS: International Normalized Ratio 1.1; Prothrombin Time (Protime)PT. 14.6 SECONDS (11.7-14.9)
[2023-09-23 14:59] LABS: Anion Gap 4 (5-15); BUN 24 mg/dL (7-18); Calcium,Total 8.3 mg/dL (8.5-10.1); Chloride 102 mmol/L (98-107); Creatinine, Serum 0.92 mg/dL (0.55-1.02); EST Glomerular Filtration Rate 63 mL/min (>60); Est Glom Filt Rate - Afr Amer 76 mL/min (>60); Glucose 146 mg/dL (74-106); Potassium 4.2 mmol/L (3.5-5.1); Sodium Level 134 mmol/L (136-145); Troponin-I HS 6 pg/mL (3.0-54.0)
[2023-09-23 15:21] LABS: Atypical Lymphocyte RARE %; Platelet Estimate ADEQUATE (ADEQ)
[2023-09-23 15:22] LABS: Anisocytosis RARE; Red Cell Morphology N CHROM NORMAL (NORM C&C)
[2023-09-23] MEDS: Azithromycin 500 MG in Dextrose 5%-Water (250mL Bag) 250 ML 250 MG IV (16:21)
[2023-09-23] MEDS: Ceftriaxone 2 GM in 0.9% Normal Saline (50mL MB+) 50 ML IV (16:21)
--- NOTE | 2023-09-23 19:25 | PCM.HP.STD ---
HPI - General General Date of Admission: 09/23/23 HPI Narrative GEE LAURA, is a 78 F who presents to the hospital with increasing shortness of breath. She is also felt weak but denies any fevers or productive cough. She is chronically chilled. She restarted chemotherapy for stage IV non-small cell lung cancer that was initially diagnosed in the right lung in 2014. She is status post chemoradiation and went into remission until 2020 when it was discovered in her left lung and has been progressing since that time. She is on a new chemotherapy that she had her first dose 5 days ago. When she was in the ER and she had to ambulate to the restroom, on the low back she was found to be 68% on room air and was placed on 3 L nasal cannula. She did recover with rest. CT of the chest demonstrated a small interlobar PE in the left lower lobe is also possible pneumonia. She was given a dose of Rocephin and azithromycin in the ER. She remains afebrile without a leukocytosis. [facility], [facility] Medical History Alcohol use Anxiety Bilateral pulmonary embolism (11/06/14) Cancer Cardiology follow-up encounter Colitis COPD (chronic obstructive pulmonary disease) Dyspepsia and disorder of function of stomach Encounter for education Encounter for monitoring cardiotoxic drug therapy Encounter for vitamin B12 injection while on pemetrexed chemotherapy Essential hypertension Exertional dyspnea Exertional dyspnea Former smoker Gastric reflux Headache Hepatitis A History of echocardiogram History of hepatitis A virus infection History of pulmonary embolus (PE) History of stress test History of tachycardia Hydronephrosis with ureteral calculus Lung cancer Lung mass Non-small cell lung cancer (NSCLC) Raynauds disease Shortness of breath on exertion Skin cancer Ulcerative colitis Wears dentures Wears glasses Home Medications multivitamin with folic acid 400 mcg tablet 1 tab PO DAILY SUPPLEMENT 09/16/14 [History Last Taken 09/22/23] cholecalciferol (vitamin D3) 25 mcg (1,000 unit) tablet 1,000 unit PO DAILY supplement 05/04/19 [History Last Taken 09/23/23] loperamide 2 mg capsule (Imodium A-D) 2 mg PO Q4H PRN diarhea 08/12/19 [History Last Taken Unknown] tiotropium bromide 18 mcg capsule with inhalation device (Spiriva with HandiHaler) 2 cap inhalation DAILY COPD 02/11/20 [History Last Taken 09/17/23] Lactobacillus rhamnosus GG 15 billion cell sprinkle capsule (Culturelle) 1 cap PO DAILY probiotic 12/29/20 [History Last Taken 09/23/23] dicyclomine 20 mg tablet 20 mg PO 4X/DAY COLITIS 12/29/20 [History Last Taken 09/23/23] valacyclovir 500 mg tablet 500 mg PO DAILY . 05/31/22 [History Last Taken 09/23/23] albuterol sulfate 90 mcg/actuation aerosol inhaler (Ventolin HFA) 2 puff inhalation Q6H PRN shortness of breath or wheezing 02/22/23 [History Last Taken 09/17/23] esomeprazole magnesium 20 mg capsule,delayed release 40 mg PO BID GERD 02/22/23 [History Last Taken 09/23/23] ibuprofen 400 mg tablet 400 mg PO Q6H PRN pain 02/22/23 [History Last Taken Unknown] vitamin E (dl, acetate) 180 mg (400 unit) capsule 180 mg PO DAILY . 02/22/23 [History Last Taken 09/22/23] osimertinib 80 mg tablet (Tagrisso) 80 mg PO DAILY . 06/18/23 [History Last Taken 09/22/23] carvedilol 25 mg tablet 12.5 mg PO BID . 07/05/23 [History Last Taken 09/23/23] dexamethasone 4 mg tablet 4 mg PO .COMPLEX . #40 tabs 09/12/23 [Rx Last Taken 09/20/23] folic acid 1 mg tablet 1 mg PO DAILY . #90 tabs 09/12/23 [Rx Last Taken 09/23/23] lidocaine-prilocaine 2.5 %-2.5 % topical cream 1 applic topical ONCE PRN port access 30 days #30 grams 09/12/23 [Rx Last Taken Unknown] ondansetron 8 mg disintegrating tablet 8 mg PO Q8H PRN nausea and vomiting #30 tabs 09/12/23 [Rx Last Taken Unknown] Allergy/AdvReac Type Severity Reaction Status Date / Time adhesive tape Allergy Itching Verified 09/23/23 13:08 ipratropium [From Atrovent] Allergy Rash Verified 09/23/23 13:08 terbinafine HCl Allergy Rash Verified 09/23/23 13:08 [From Lamisil] lactose AdvReac Upset Verified 09/23/23 13:08 Stomach Family History Father Liver disease Mother Uterine cancer Brother Myocardial infarction, Onset Age: 60 Surgical History EBUS guided biopsy H/O hernia repair History of appendectomy History of bronchoscopy History of colonoscopy History of hysterectomy History of thoracentesis History of tonsillectomy Hx of cholecystectomy Malignant pleural effusion (02/07/23) ulnar nerve release left elbow Social History Smoking Status: Former smoker Tobacco: How many years used: 40 second hand exposure: No alcohol intake: never details: occasionally substance use type: does not use ROS Constitutional Constitutional: Reports chills and fatigue; Denies fever(s) or malaise Eyes Eyes: Denies blurry vision ENT HEENT: Denies headache(s) or nasal discharge Cardiovascular Cardiovascular: Denies chest pain, dyspnea on exertion or syncope Respiratory/Chest Respiratory/Chest: Reports shortness of breath at rest; Denies cough or shortness of breath with exertion Gastrointestinal Gastrointestinal: Denies constipation, diarrhea, nausea or vomiting Genitourinary Genitourinary: Denies dysuria Neurologic Neurologic: Denies focal weakness, numbness or tremor(s) Psychiatric Psychiatric: Denies anxiety or depression Vital Signs Vital Signs Vital Signs: 09/23/23 13:04 09/23/23 13:48 09/23/23 13:40 Temperature 97.5 F L 97.5 F L Temperature Source Temporal Temporal Pulse Rate 117 H 111 H Respiratory Rate 26 H 20 H Respiratory Effort Short of Breath Respiratory Pattern Tachypnea Blood Pressure 121/72 H 122/74 H Blood Pressure Mean 88 90 Pulse Ox 95 95 Oxygen Delivery Method Room Air Room Air Room Air Oxygen Flow Rate (L/min) 09/23/23 14:30 09/23/23 15:00 09/23/23 16:35 Temperature Temperature Source Pulse Rate 109 H 108 H Respiratory Rate 24 H 25 H Respiratory Effort Respiratory Pattern Blood Pressure 113/69 129/72 H Blood Pressure Mean 81 89 Pulse Ox 68 Oxygen Delivery Method Room Air Oxygen Flow Rate (L/min) 09/23/23 16:35 09/23/23 16:00 09/23/23 17:00 Temperature Temperature Source Pulse Rate 104 H 113 H Respiratory Rate 19 H 20 H Respiratory Effort Respiratory Pattern Blood Pressure 128/71 H 126/80 H Blood Pressure Mean 88 94 Pulse Ox 97 92 Oxygen Delivery Method Nasal Cannula Oxygen Flow Rate (L/min) 3 09/23/23 18:04 09/23/23 17:30 09/23/23 18:00 Temperature 98.3 F 98.3 F Temperature Source Oral Pulse Rate 115 H 114 H 115 H Respiratory Rate 27 H 25 H 27 H Respiratory Effort Respiratory Pattern Blood Pressure 123/79 H 124/79 H Blood Pressure Mean 93 92 Pulse Ox 96 96 96 Oxygen Delivery Method Oxygen Flow Rate (L/min) 09/23/23 18:30 09/23/23 19:00 Temperature Temperature Source Pulse Rate 113 H 113 H Respiratory Rate 21 H 24 H Respiratory Effort Respiratory Pattern Blood Pressure 122/75 H 114/67 Blood Pressure Mean 90 80 Pulse Ox 96 92 Oxygen Delivery Method Oxygen Flow Rate (L/min) Weight Weight: 116 lb 9.992 oz Body Mass Index (BMI) 21.3 Physical Exam Narrative General: Alert, Oriented x3, Cooperative, No apparent distress HEENT: Atraumatic, PERRLA, EOMI, Normocephalic Oral: Moist Mucosa Neck: Supple, No JVD Lungs: Diminished with poor movement, No rhonchi, No wheeze, No rales Cardiovascular: Tachycardic, Regular Rhythm, Normal S1, Normal S2, No murmurs Abdomen: Soft, Non Tender, Non-Distended, No Hepato-splenomegaly Extremities: No edema, Capillary Refill Less than 3 Seconds Skin: No rashes, No breakdown Musculoskeletal: No Tenderness to Palpation of Joints or Extremities Neurological: No focal neurological deficits, Motor Exam 5/5 strength throughout, Sensory exam intact to light touch and pain Psych/Mental Status: Normal Affect, Appropriate Results Lab / Micro Data 09/23/23 14:30 09/23/23 14:30 Labs: Laboratory Results - last 24 hr 09/23/23 14:30: WBC 8.9, RBC 3.21 L, Hgb 8.7 L, Hct 28.4 L, MCV 88.5, MCH 27.1, MCHC 30.6 L, RDW Std Deviation 46.3 H, RDW Coeff of Hiram 14.3, Plt Count 198, MPV 9.9, Immature Gran % (Auto) 0.500, Neut % (Auto) 94.9 H, Lymph % (Auto) 3.7 L, [place] % (Auto) 0.7, Eos % (Auto) 0.1, Baso % (Auto) 0.1, Absolute Neuts (auto) 8.4 H, Absolute Lymphs (auto) 0.33 L, Nucleated RBC % 0, Differential Comment SEE COMMENT, Atypical Lymphocytes RARE, Platelet Estimate ADEQUATE, RBC Morphology N CHROM, Anisocytosis RARE, PT 14.6, INR 1.1, APTT 27.0, Sodium 134 L, Potassium 4.2, Chloride 102, Carbon Dioxide 28.0, Anion Gap 4 L, BUN 24 H, Creatinine 0.92, Estim Creat Clear Calc 40.50, Est GFR (MDRD) Af Amer 76, Est GFR (MDRD) Non-Af 63, BUN/Creatinine Ratio 26.0 H, Glucose 146 H, Calcium 8.3 L, Troponin I High Sens 6 Imaging Radiology Impression Chest CTA 09/23/23 14:00 IMPRESSION: undefined ADDENDUM: 09/23/23 1828 IMPRESSION: undefined Assessment & Plan Assessment/Plan (1) Hypoxia: (2) Pneumonia: (3) Pulmonary embolism: PLAN: Plan 1. Pulmonary embolism with community-acquired pneumonia and hypoxia ? Hypoxia secondary to ambulation ? Continue with Rocephin and azithromycin ? Trace small PE in the left lower lobe, will start on Eliquis at 10 mg p.o. twice daily ? Wean oxygen as able ? Obtain sputum culture ? Will obtain iron studies and stool guaiac given that her hemoglobin has dropped though she denies any bloody stools she still is anemic previous hemoglobin was 10 currently 8.7 though this is after chemotherapy initiation 2. Stage IV non-small cell lung cancer ? Continuing with chemotherapy ?She understands that this is not curative ? Had a 20-minute discussion on advance care planning as she has not heard of palliative care, she has heard of hospice care and she is not ready to proceed with hospice but may be willing to be evaluated by palliative care. ? Can resume her home chemo pill 3. HTN ? Blood pressures are currently stable though she is tachycardic ? Continue with Coreg ? Will monitor and make adjustments as necessary 4. GERD ? Stable ? Continue with PPI DVT: Ladan 76 minutes was spent on direct patient care, including documentation as well as chart review and collaboration with colleagues Charges/Coding Visit Charges Inpatient E&M: 73767 Init Hosp L3 Procedures Hospitalists Procedures: 78546 Advncd Care Plan 30 Min
[2023-09-23 20:47] LABS: Ferritin 182 ng/mL (8-252); Iron 24 ug/dL (50-170); Iron Binding Capacity,Total 182 ug/dL (250-450); PERCENT IRON SATURATION 13.2 % (15.0-55.0)
[2023-09-23] MEDS: APIXABAN 5 MG TABLET 10 MG PO (22:05)
[2023-09-23] MEDS: Acyclovir 200 MG Capsule 400 MG PO (22:06)
[2023-09-23] MEDS: Pantoprazole Sodium 40 MG Tablet PO (22:06)
[2023-09-23] MEDS: Carvedilol 12.5 MG Tablet PO (22:07)
[2023-09-23] MEDS: Ketorolac 15 MG/ML Vial IV (22:49)
[2023-09-24] VITALS (7 sets, daily range): BP systolic 123–130; BP diastolic 68–77; PULSE 102–121; RESP 10–20; TEMP 36.4–36.8; O2SAT 93–99
[2023-09-24 06:39] LABS: Absolute Lymphocyte Count 0.27 X10^3/uL (0.83-4.51); Absolute Neutrophil Count 5.5 X10^3/uL (2.0-7.7); Eosinophil# 0.02 X10^3/uL; Eosinophils% 0.3 % (0-5); Hematocrit 28.2 % (37-47); Hemoglobin 8.5 g/dL (12.0-15.0); Lymphocyte # 0.27 X10^3/ul (0.83-4.51); Lymphocyte % 4.6 % (19-41); Mean Corp Hgb Conc 30.1 g/dL (32-36); Mean Corpuscular Hgb 27.2 pg (27.0-32.0); Mean Corpuscular Volume 90.4 fL (81-99); Mean Platelet Vol. 10.8 fl (6.2-12.0); Monocyte# 0.05 X10^3/uL; Monocyte% 0.8 % (0-10); NRBC Flagged by Analyzer 0 % (0-5); Neutrophil # 5.52 X10^3/uL (2.7-7.7); Neutrophil % 93.5 % (47-70); POSITIVE DIFFERENTIAL YES; Platelet Count 187 K/mm3 (150-450); RBC Distribution Width CV 14.3 % (11.6-14.6); RBC Distribution Width SD 47.3 fl (35.1-43.9); Red Blood Count 3.12 M/mm3 (4.2-5.4); White Blood Count 5.9 K/mm3 (4.4-11.0)
[2023-09-24 07:46] LABS: Anion Gap 2 (5-15); BUN 20 mg/dL (7-18); BUN/Creat Ratio 23.1 RATIO (10-20); Calcium,Total 8.6 mg/dL (8.5-10.1); Chloride 103 mmol/L (98-107); Creatinine, Serum 0.87 mg/dL (0.55-1.02); EST Glomerular Filtration Rate 68 mL/min (>60); Est Glom Filt Rate - Afr Amer 82 mL/min (>60); Estimated Creatinine Clearance 42.83 ml/min; Glucose 106 mg/dL (74-106); Potassium 4.7 mmol/L (3.5-5.1); Sodium Level 134 mmol/L (136-145)
[2023-09-24] MEDS: Carvedilol 12.5 MG Tablet PO ×2 (08:21→22:02)
[2023-09-24] MEDS: Folic Acid 1 MG Tablet PO (08:21)
[2023-09-24] MEDS: Acyclovir 200 MG Capsule 400 MG PO ×2 (08:21→22:02)
[2023-09-24] MEDS: Pantoprazole Sodium 40 MG Tablet PO (08:21)
--- NOTE | 2023-09-24 08:23 | NURSING ---
pt reports that this morning she had bright red blood quite a bit with a bowel movement this am denies any clots. states some soft stool as well.
--- NOTE | 2023-09-24 08:35 | VDLE_ITS ---
Reason For Study: HX PE RIGHT LEFT GSV is normal. GSV is normal. CFV is compressible, spontaneous, phasic, CFV is compressible, spontaneous, phasic, competent and demonstrates normal competent, and demonstrates normal augmentation. augmentation. FV is compressible, spontaneous, phasic, FV is compressible, spontaneous, phasic, competent and demonstrates normal competent and demonstrates normal augmentation. augmentation. POP V is compressible, spontaneous, and POP V is compressible, spontaneous, phasic, phasic. competent and demonstrates normal T/P Trunk is compressible. augmentation. PTV is compressible. T/P Trunk is compressible. RT PerV is compressible. PTV is compressible. Acute deep vein thrombosis is noted in the LT PerV is compressible. Soleal V. It is dilated and NONCOMPRESSIBLE. Procedure This is a venous duplex using B-mode, color flow and spectral Doppler. Exam performed portable in patient room. The exam was diagnostic. A preliminary report was called and/or faxed to M/S 3 RN responsible for patient. VL/Venous Duplex US - Rusty Extrem Interpretation Summary Acute deep vein thrombosis is noted in the right soleus vein. Deep veins of the left lower extremity are patent and compressible segmentally. There is no evidence of left lower extremity deep vein thrombosis. The bilateral great saphenous vei ns appear patent and compressible segmentally. Ordering Physician: Marixa Aguirre Referring Physician: Vlad Dennis Performed By: Thaddeus Palumbo RVT
[2023-09-24 09:04] LABS: Hemoglobin 9.5 g/dL (12.0-15.0)
[2023-09-24] MEDS: Pantoprazole Sodium 40 MG in 0.9% Normal Saline (100mL MB+) 100 ML 330 MG IV ×2 (09:48→22:02)
[2023-09-24] MEDS: Ceftriaxone 1 GM/50 ML BAG IV (10:20)
[2023-09-24] MEDS: 0.9 % NaCl (Sterile) Posiflush 10 mL IV (10:20)
[2023-09-24] MEDS: Azithromycin 500 MG in Dextrose 5%-Water (250mL Bag) 250 ML 250 MG IV (11:20)
--- NOTE | 2023-09-24 11:26 | CASEMGMT ---
Addendum entered by Yuriy Willoughby 09/24/23 11:34: CM to follow for potential home O2 needs. Original Note: DUGLAS OCHOA Assessment Face to Face with patient for initial transition planning/care coordination assessment. DUGLAS OCHOA introduced self and role at [facility], pt voices understanding. Pt is A&Ox4 and is resting comfortably in bed and is calm. Care providers, pharmacy, and demographics verified. Admitting dx: Pneumonia with Hypoxia PCP: Vlad Dennis Specialists: Mary Kate (Oncology), Fabian (Cardio) Preferred Pharmacy: [facility] Insurance: [facility] A/B, [employer] Supplement Prescription Benefit: Yes LNOK: Nirali Bhakta ([place]) Living Arrangements: Pt lives in a 1st floor apartment with a flat entrance with a roommate. ADLs/IADLs: Ind Transportation: self, roommate, Daughter DME: BP cuff. GB in shower. Pt denies all other DME uses or needs. Pt states that she wants to wait and see how she progresses in the hospital before setting up a DME company for potential oxygen needs. HHC/SNF: Denies SNF history or needs. Pt states she is active with [facility] and is seen once per week by SN for a Lt lung drain. Pt states that she is going to be getting the drain removed soon. Pt?s goal: Home with the continuation of HHC Plan: 6 Click is 24. Pt denies further needs at time of assessment. Pt states that she feels safe and comfortable discharging home with no additional needs at this time. Polo Willoughby RN, CM
[2023-09-24] MEDS: 0.9% Normal Saline (250mL Bag) 250 ML 15 ML IV (12:30)
--- NOTE | 2023-09-24 15:17 | NURSING ---
computer downtime approx [phone].
--- NOTE | 2023-09-24 15:21 | NURSING ---
vitals per student nurse (downtime computer)
[2023-09-24 16:15] LABS: Hemoglobin 8.9 g/dL (12.0-15.0)
--- NOTE | 2023-09-24 16:34 | EX.PCM.CON.G ---
HPI Consult Data Date of Consult: 09/24/23 HPI Narrative Reason for Consultation: GI bleed HPI Narrative: GEE LAURA, is a 78 F who presents 78-year-old woman with a past medical history for possible ulcerative colitis, COPD and a 40+ pack-year history. She had a colonoscopy by Dr. Scott back in 2019. Findings from the colonoscopy were as follows: - Hemorrhoids found on perianal exam. - Two 3 to 5 mm polyps in the rectum and at the recto-sigmoid colon, removed with a hot snare. - Four less than 5 mm polyps recto-sigmoid colon, removed with a cold biopsy forceps. Resected and retrieved. - One 7 mm polyp in the sigmoid colon, removed with a hot snare. Resected and retrieved. Tattooed. She has a past medical history of lung cancer that was originally diagnosed in 2014. She was diagnosed a stage III, N2 positive disease. She was a nonoperable candidate. She received concomitant chemoradiation with weekly carboplatin and Taxol from 09/16/2014 through 10/28/2014 followed by 6 weeks of adjuvant chemotherapy, specifically 2 cycles of carboplatin from 11/18/2014 - 12/23/2014. She developed pleural effusion twice in August 2015 requiring thoracentesis. Pleural fluid was sent for cytology and was negative for malignancy. She underwent a right VATS pleural biopsy, mechanical and chemical pleurodesis under the care of Dr. Shin on 12/01/2015 for a right pleural effusion refractory to percutaneous drainage. Cytology was negative. CT scan of chest obtained 11/03/2015 revealed perihilar lymphadenopathy, reviewed by Dr. Shin, who determined no need for intervention at that time. CT on 08/21/2016 did not showed no metastases.? CT on 02/19/2018 showed new pleural based density in the R lower lobe. ? PET/CT? on 03/20/2018 showed no viable tumor.? She remained on observation,? CT chest on 05/02/2020 showed increase in L lung density. PET/CT on 06/03/2021 showed no hypermetabolic activity.? CT on 11/14/2020 showed increased L lingular nodule and new Left pleural effusion. She had thoracentesis and attempt at L lung nodule biopsy. Cytology on 11/28/2020 showed metastatic adenocarcinoma. NGS showed EGFR [id number] positive. She started Gilotrif 30mg daily on 01/12/2021. Started having diarrhea on 01/21/2021, stopped taking Gilotrif on 01/24/2021. Diarrhea stopped on 01/24/2021. She restarted Gilotrif for about 3 days, diarrhea recurred so has been off for about 4 weeks. She started Gilotrif 30mg every 3 days on 03/01/2021. She does get diarrhea on occasion is usually controlled by Imodium. CT chest done on 05/18/2021 showed resolution pleural effusion, decreasing lung nodules. CT chest on 05/28/2022 showed increasing AKHIL lobe mass. She had FOB plus biopsy of AKHIL mass on 06/29/[address] Lemons. Pathology for transbronchial needle aspiration showed adenocarcinoma, K-claudia G12C Positive, PD-L1 30% positive, BRAF, EGFR, HER2, MET were negative. CT chest on 10/15/2022 showed pleural effusion and L lingular nodule. Restarted Gilotrif 30mg q3 days on 11/12/2022 and still taking Lumakras. Had VATS and Talc pleurodesis done at [facility] on 02/01/2023. Pleural biopsy showed adenosquamous cell cancer. CT chest on 03/15/2023 showed L pleural effusion. She had L PleurX catheter placed on 04/08/2023 at [facility]. Molecular markers from Pathology done on 02/01/2023 now shows EGFR T790M mutation. She started Tagrisso on 05/04/[address] chest done on 06/14/2023 shows stable changes with decrease L effusion, ? new nodule LLL. Remains on Tagrisso. Comes in to start Chemotherapy and Immunotherapy for progressive disease. Still gets diarrhea on and off, still getting drainage from the Pleurx catheter-about 30cc weekly She presented to the ER with shortness of breath that began yesterday. Patient states it is gradually gotten worse. Patient states her breathing is worse with any exertion. Patient states it is better with rest. Patient admits to some rhinorrhea but denies any cough. Patient denies any fevers or chills. Patient denies any chest pain. Patient has a history of lung cancer and had chemotherapy 5 days ago. Patient also had a recent med port placement. She has been diagnosed with a postobstructive pneumonia and pulmonary embolism. I am seeing her due to the development of lower GI bleeding. [facility] Medical History Alcohol use Anxiety Bilateral pulmonary embolism (11/06/14) Cancer Cardiology follow-up encounter Colitis COPD (chronic obstructive pulmonary disease) Dyspepsia and disorder of function of stomach Encounter for education Encounter for monitoring cardiotoxic drug therapy Encounter for vitamin B12 injection while on pemetrexed chemotherapy Essential hypertension Exertional dyspnea Exertional dyspnea Former smoker Gastric reflux Headache Hepatitis A History of echocardiogram History of hepatitis A virus infection History of pulmonary embolus (PE) History of stress test History of tachycardia Hydronephrosis with ureteral calculus Lung cancer Lung mass Non-small cell lung cancer (NSCLC) Raynauds disease Shortness of breath on exertion Skin cancer Ulcerative colitis Wears dentures Wears glasses Home Medications multivitamin with folic acid 400 mcg tablet 1 tab PO DAILY SUPPLEMENT 09/16/14 [History Last Taken 09/22/23] cholecalciferol (vitamin D3) 25 mcg (1,000 unit) tablet 1,000 unit PO DAILY supplement 05/04/19 [History Last Taken 09/23/23] loperamide 2 mg capsule (Imodium A-D) 2 mg PO Q4H PRN diarhea 08/12/19 [History Last Taken Unknown] tiotropium bromide 18 mcg capsule with inhalation device (Spiriva with HandiHaler) 2 cap inhalation DAILY COPD 02/11/20 [History Last Taken 09/17/23] Lactobacillus rhamnosus GG 15 billion cell sprinkle capsule (Culturelle) 1 cap PO DAILY probiotic 12/29/20 [History Last Taken 09/23/23] dicyclomine 20 mg tablet 20 mg PO 4X/DAY COLITIS 12/29/20 [History Last Taken 09/23/23] valacyclovir 500 mg tablet 500 mg PO DAILY . 05/31/22 [History Last Taken 09/23/23] albuterol sulfate 90 mcg/actuation aerosol inhaler (Ventolin HFA) 2 puff inhalation Q6H PRN shortness of breath or wheezing 02/22/23 [History Last Taken 09/17/23] esomeprazole magnesium 20 mg capsule,delayed release 40 mg PO BID GERD 02/22/23 [History Last Taken 09/23/23] ibuprofen 400 mg tablet 400 mg PO Q6H PRN pain 02/22/23 [History Last Taken Unknown] vitamin E (dl, acetate) 180 mg (400 unit) capsule 180 mg PO DAILY . 02/22/23 [History Last Taken 09/22/23] osimertinib 80 mg tablet (Tagrisso) 80 mg PO DAILY . 06/18/23 [History Last Taken 09/22/23] carvedilol 25 mg tablet 12.5 mg PO BID . 07/05/23 [History Last Taken 09/23/23] dexamethasone 4 mg tablet 4 mg PO .COMPLEX . #40 tabs 09/12/23 [Rx Last Taken 09/20/23] folic acid 1 mg tablet 1 mg PO DAILY . #90 tabs 09/12/23 [Rx Last Taken 09/23/23] lidocaine-prilocaine 2.5 %-2.5 % topical cream 1 applic topical ONCE PRN port access 30 days #30 grams 09/12/23 [Rx Last Taken Unknown] ondansetron 8 mg disintegrating tablet 8 mg PO Q8H PRN nausea and vomiting #30 tabs 09/12/23 [Rx Last Taken Unknown] Allergy/AdvReac Type Severity Reaction Status Date / Time adhesive tape Allergy Itching Verified 09/23/23 13:08 ipratropium [From Atrovent] Allergy Rash Verified 09/23/23 13:08 terbinafine HCl Allergy Rash Verified 09/23/23 13:08 [From Lamisil] lactose AdvReac Upset Verified 09/23/23 13:08 Stomach Family History Father Liver disease Mother Uterine cancer Brother Myocardial infarction, Onset Age: 60 Surgical History EBUS guided biopsy H/O hernia repair History of appendectomy History of bronchoscopy History of colonoscopy History of hysterectomy History of thoracentesis History of tonsillectomy Hx of cholecystectomy Malignant pleural effusion (02/07/23) ulnar nerve release left elbow Social History Smoking Status: Former smoker Tobacco: How many years used: 40 second hand exposure: No alcohol intake: never details: occasionally substance use type: does not use ROS Constitutional Constitutional: Reports chills and fatigue; Denies fever(s) or malaise Eyes Eyes: Denies blurry vision ENT HEENT: Denies headache(s) or nasal discharge Cardiovascular Cardiovascular: Denies chest pain, dyspnea on exertion or syncope Respiratory/Chest Respiratory/Chest: Reports shortness of breath at rest; Denies cough or shortness of breath with exertion Gastrointestinal Gastrointestinal: Denies constipation, diarrhea, nausea or vomiting Genitourinary Genitourinary: Denies dysuria Neurologic Neurologic: Denies focal weakness, numbness or tremor(s) Psychiatric Psychiatric: Denies anxiety or depression Physical Exam Narrative General: Alert, Oriented x3, Cooperative, No apparent distress HEENT: Atraumatic, PERRLA, EOMI, Normocephalic Oral: Moist Mucosa Neck: Supple, No JVD Lungs: Diminished with poor movement, No rhonchi, No wheeze, No rales Cardiovascular: Tachycardic, Regular Rhythm, Normal S1, Normal S2, No murmurs Abdomen: Soft, Non Tender, Non-Distended, No Hepato-splenomegaly Extremities: No edema, Capillary Refill Less than 3 Seconds Skin: No rashes, No breakdown Musculoskeletal: No Tenderness to Palpation of Joints or Extremities Neurological: No focal neurological deficits, Motor Exam 5/5 strength throughout, Sensory exam intact to light touch and pain Psych/Mental Status: Normal Affect, Appropriate Lab / Micro Data 09/24/23 08:54 09/24/23 06:14 Labs: Laboratory Results - last 24 hr 09/23/23 14:30: Iron 24 L, TIBC 182 L, Iron Saturation 13.2 L, Ferritin 182 09/24/23 06:14: WBC 5.9, RBC 3.12 L, Hgb 8.5 L, Hct 28.2 L, MCV 90.4, MCH 27.2, MCHC 30.1 L, RDW Std Deviation 47.3 H, RDW Coeff of Hiram 14.3, Plt Count 187, MPV 10.8, Immature Gran % (Auto) 0.800, Neut % (Auto) 93.5 H, Lymph % (Auto) 4.6 L, [place] % (Auto) 0.8, Eos % (Auto) 0.3, Baso % (Auto) 0.0, Absolute Neuts (auto) 5.5, Absolute Lymphs (auto) 0.27 L, Nucleated RBC % 0, Sodium 134 L, Potassium 4.7, Chloride 103, Carbon Dioxide 29.0, Anion Gap 2 L, BUN 20 H, Creatinine 0.87, Estim Creat Clear Calc 42.83, Est GFR (MDRD) Af Amer 82, Est GFR (MDRD) Non-Af 68, BUN/Creatinine Ratio 23.1 H, Glucose 106, Calcium 8.6 09/24/23 08:54: Hgb 9.5 L Micro: Microbiology 09/24/23 08:08 Stool Stool Occult Blood (ZULEIMA) - Final Occult Blood Positive Imaging Radiology Impression Chest CTA 09/23/23 14:00 IMPRESSION: undefined ADDENDUM: 09/23/23 1828 IMPRESSION: undefined Venous Doppler Study 09/24/23 08:35 Interpretation Summary Acute deep vein thrombosis is noted in the right soleus vein. Deep veins of the left lower extremity are patent and compressible segmentally. There is no evidence of left lower extremity deep vein thrombosis. The bilateral great saphenous veins appear patent and compressible segmentally. Ordering Physician: Marixa Aguirre Referring Physician: Vlad Dennis Performed By: Thaddeus Palumbo RVT Assessment & Plan Assessment/Plan (1) Hypoxia: (2) Pneumonia: (3) Pulmonary embolism: (4) GI bleeding: PLAN: Plan 78-year-old with past medical history of non-small cell cancer of the left lung status complicated by persistent left pleural effusion status post VATS procedure diagnosed back in 2015 status postchemotherapy with progressive metastasis and the development of a new pulmonary embolisms and started on Eliquis therapy. She possibly has a history of ulcerative colitis but has developed some lower GI bleeding in the setting of worsening anemia once being started on Eliquis. GI bleed -Possible reactivation of ulcerative colitis versus ischemic colitis versus CMV induced colitis -All symptoms of his diagnosis is upper GI bleed with rapid transit in the setting of recent starting of anticoagulation and on immunosuppressive patient. -Recommend EGD and colonoscopy to evaluate upper lower GI tract. Recommend stool studies for CMV, fecal leukocytes. Recommend to check ESR, CRP, IBD profile, ANCA because she can develop an ANCA associated vasculitis associated with non-small cell cancer which is a paraneoplastic syndrome. Pulmonary embolism with community-acquired pneumonia and hypoxia ? Hypoxia secondary to ambulation ? Continue with Rocephin and azithromycin ? Trace small PE in the left lower lobe, started on Eliquis at 10 mg p.o. twice daily Stage IV non-small cell lung cancer ? Continuing with chemotherapy ?She understands that this is not curative Charges/Coding Visit Charges Inpatient E&M: 98569 Init Hosp L3
--- NOTE | 2023-09-24 17:28 | CON.PCM.SX_ITS ---
Assessment & Plan Assessment/Plan (1) Pulmonary embolism: QUALIFIERS: Pulmonary embolism type: unspecified Chronicity: acute Acute cor pulmonale presence: without acute cor pulmonale Qualified Code(s): I26.99 - Other pulmonary embolism without acute cor pulmonale PLAN: -new PE, GI bleed after initiating anticoagulation -appropriate for filter -plan for tomorrow AM; will coordinate timing with endoscopy plans HPI Consult Data Date of Consult: 09/24/23 HPI Narrative HPI Narrative: GEE LAURA, is a 78 F who presents with long history of lung CA initially diagnosed in 2014, non-resectable. Has been on several regimens over the past 9 years with several causing loose BM but no bloody stools. Had a PE in 2015 for which she was on anticoagulation for 6 months which she tolerated without issue. On 09/21 she developed worsening SOB and presented to the ED where new PE were identified. She was admitted and started on Eliquis with bright red blood per rectum occurring shortly after initial doses. The Eliquis has been held and bleeding has decreased but not resolved. [facility] Medical History Alcohol use Anxiety Bilateral pulmonary embolism (11/06/14) Cancer Cardiology follow-up encounter Colitis COPD (chronic obstructive pulmonary disease) Dyspepsia and disorder of function of stomach Encounter for education Encounter for monitoring cardiotoxic drug therapy Encounter for vitamin B12 injection while on pemetrexed chemotherapy Essential hypertension Exertional dyspnea Exertional dyspnea Former smoker Gastric reflux Headache Hepatitis A History of echocardiogram History of hepatitis A virus infection History of pulmonary embolus (PE) History of stress test History of tachycardia Hydronephrosis with ureteral calculus Lung cancer Lung mass Non-small cell lung cancer (NSCLC) Raynauds disease Shortness of breath on exertion Skin cancer Ulcerative colitis Wears dentures Wears glasses Home Medications multivitamin with folic acid 400 mcg tablet 1 tab PO DAILY SUPPLEMENT 09/16/14 [History Last Taken 09/22/23] cholecalciferol (vitamin D3) 25 mcg (1,000 unit) tablet 1,000 unit PO DAILY supplement 05/04/19 [History Last Taken 09/23/23] loperamide 2 mg capsule (Imodium A-D) 2 mg PO Q4H PRN diarhea 08/12/19 [History Last Taken Unknown] tiotropium bromide 18 mcg capsule with inhalation device (Spiriva with HandiHaler) 2 cap inhalation DAILY COPD 02/11/20 [History Last Taken 09/17/23] Lactobacillus rhamnosus GG 15 billion cell sprinkle capsule (Culturelle) 1 cap PO DAILY probiotic 12/29/20 [History Last Taken 09/23/23] dicyclomine 20 mg tablet 20 mg PO 4X/DAY COLITIS 12/29/20 [History Last Taken 09/23/23] valacyclovir 500 mg tablet 500 mg PO DAILY . 05/31/22 [History Last Taken 09/23/23] albuterol sulfate 90 mcg/actuation aerosol inhaler (Ventolin HFA) 2 puff inha lation Q6H PRN shortness of breath or wheezing 02/22/23 [History Last Taken 09/17/23] esomeprazole magnesium 20 mg capsule,delayed release 40 mg PO BID GERD 02/22/23 [History Last Taken 09/23/23] ibuprofen 400 mg tablet 400 mg PO Q6H PRN pain 02/22/23 [History Last Taken Unknown] vitamin E (dl, acetate) 180 mg (400 unit) capsule 180 mg PO DAILY . 02/22/23 [History Last Taken 09/22/23] osimertinib 80 mg tablet (Tagrisso) 80 mg PO DAILY . 06/18/23 [History Last Taken 09/22/23] carvedilol 25 mg tablet 12.5 mg PO BID . 07/05/23 [History Last Taken 09/23/23] dexamethasone 4 mg tablet 4 mg PO .COMPLEX . #40 tabs 09/12/23 [Rx Last Taken 09/20/23] folic acid 1 mg tablet 1 mg PO DAILY . #90 tabs 09/12/23 [Rx Last Taken 09/23/23] lidocaine-prilocaine 2.5 %-2.5 % topical cream 1 applic topical ONCE PRN port access 30 days #30 grams 09/12/23 [Rx Last Taken Unknown] ondansetron 8 mg disintegrating tablet 8 mg PO Q8H PRN nausea and vomiting #30 tabs 09/12/23 [Rx Last Taken Unknown] Allergy/AdvReac Type Severity Reaction Status Date / Time adhesive tape Allergy Itching Verified 09/23/23 13:08 ipratropium [From Atrovent] Allergy Rash Verified 09/23/23 13:08 terbinafine HCl Allergy Rash Verified 09/23/23 13:08 [From Lamisil] lactose AdvReac Upset Verified 09/23/23 13:08 Stomach Family History Father Liver disease Mother Uterine cancer Brother Myocardial infarction, Onset Age: 60 Surgical History EBUS guided biopsy H/O hernia repair History of appendectomy History of bronchoscopy History of colonoscopy History of hysterectomy History of thoracentesis History of tonsillectomy Hx of cholecystectomy Malignant pleural effusion (02/07/23) ulnar nerve release left elbow Social History Smoking Status: Former smoker Tobacco: How many years used: 40 second hand exposure: No alcohol intake: never details: occasionally substance use type: does not use ROS Constitutional Constitutional: Denies chills, fever(s), frequent falls, lethargy or weakness Eyes Eyes: Denies blind spots, change in vision or loss of vision ENT HEENT: Denies bleeding gums, hoarseness or sore throat Cardiovascular Cardiovascular: Denies abdominal pain, bluish discoloration of hand/feet, chest pain with activity, claudication, cold extremities, cyanosis, dyspnea on exer tion, erythema on extremities, irregular heart rhythm, leg edema, leg ulcers, numbness in extremities or weakness in extremities Respiratory/Chest Respiratory/Chest: Reports shortness of breath at rest and shortness of breath with exertion; Denies cough, excessive phlegm production or wheezing Gastrointestinal Gastrointestinal: Reports diarrhea and rectal bleeding; Denies anorexia, constipation or melena Genitourinary Genitourinary: Denies dysuria or hematuria Musculoskeletal Musculoskeletal: Denies abnormal gait Integumentary Integumentary: Reports other Details: ; Denies erythema, non-healing lesions or wounds Neurologic Neurologic: Denies abnormal speech, focal weakness, headache(s), loss of vision, numbness, paresthesias or sensory deficit Hematologic/Lymphatic Hematologic/Lymphatic: Denies easy bleeding, easy bruising or lymphadenopathy Physical Exam Const alert, oriented x3, no apparent distress and healthy appearing General Appearance: cooperative; Negative for combative or lethargic Orientation / Consciousness: awake Exam Limitations: no limitations HEENT Head and Scalp: normocephalic and atraumatic Eyes EOMs intact bilaterally General Eye: normal appearance of both eyes Neck full ROM, no lymphadenopathy, thyroid normal and No no carotid bruits General: trachea midline; Negative for lymphadenopathy Thyroid: thyroid normal Resp normal respiratory effort, no use of accessory muscles and clear to auscultation bilaterally Effort and Inspection: Negative for labored, stridor or audible wheezes Cardio regular rate, regular rhythm and no murmurs Peripheral Pulses: brachial pulses present, radial pulses present, femoral pulses present, popliteal pulses present, posterior tibial pulses present and dorsalis pedis pulses present Back/Spine Cervical Spine: cervical ROM normal Extremity full ROM, normal capillary refill and no clubbing, cyanosis or edema Skin no rashes or lesions noted and no wounds Neuro oriented x3, CN's II-XII intact bilaterally, no focal motor deficits and no sensory deficits noted Psych thought process normal, cooperative, affect normal, speech normal and act ivity/motor behavior normal Lab / Micro Data 09/24/23 15:53 09/24/23 06:14 Labs: Laboratory Results - last 24 hr 09/23/23 14:30: Iron 24 L, TIBC 182 L, Iron Saturation 13.2 L, Ferritin 182 09/24/23 06:14: WBC 5.9, RBC 3.12 L, Hgb 8.5 L, Hct 28.2 L, MCV 90.4, MCH 27.2, MCHC 30.1 L, RDW Std Deviation 47.3 H, RDW Coeff of Hiram 14.3, Plt Count 187, MPV 10.8, Immature Gran % (Auto) 0.800, Neut % (Auto) 93.5 H, Lymph % (Auto) 4.6 L, [place] % (Auto) 0.8, Eos % (Auto) 0.3, Baso % (Auto) 0.0, Absolute Neuts (auto) 5.5, Absolute Lymphs (auto) 0.27 L, Nucleated RBC % 0, Sodium 134 L, Potassium 4.7, Chloride 103, Carbon Dioxide 29.0, Anion Gap 2 L, BUN 20 H, Creatinine 0.87, Estim Creat Clear Calc 42.83, Est GFR (MDRD) Af Amer 82, Est GFR (MDRD) Non-Af 68, BUN/Creatinine Ratio 23.1 H, Glucose 106, Calcium 8.6 09/24/23 08:54: Hgb 9.5 L 09/24/23 15:53: Hgb 8.9 L Micro: Microbiology 09/24/23 08:08 Stool Stool Occult Blood (ZULEIMA) - Final Occult Blood Positive Imaging Radiology Impression Chest CTA 09/23/23 14:00 IMPRESSION: undefined ADDENDUM: 09/23/23 1828 IMPRESSION: undefined Venous Doppler Study 09/24/23 08:35 Interpretation Summary Acute deep vein thrombosis is noted in the right soleus vein. Deep veins of the left lower extremity are patent and compressible segmentally. There is no evidence of left lower extremity deep vein thrombosis. The bilateral great saphenous veins appear patent and compressible segmentally. Ordering Physician: Marixa Aguirre Referring Physician: Vlad Dennis Performed By: Thaddeus Palumbo RVT Charges/Coding Visit Charges Inpatient E&M: 06472 Init Hosp L3
--- NOTE | 2023-09-24 17:35 | PN.HOSP_ITS ---
Reason for Visit Reason for Visit: Shortness of breath Subjective Subjective Mrs. Caal is a 78-year-old white female who presented to the emergency department at [facility] on 09/23/2023 with worsening shortness of breath. She also complained of feeling weak but denied any fevers or chills or productive cough. She has a history of stage IV non-small cell lung CA that was diagnosed in the right lung in 2014 and she recently restarted chemotherapy for recurrence. Her last chemotherapy was 5 days ago. In the emergency department she had ambulate to the bathroom and upon arriving back she was found to have an oxygen saturation of 68% on room air and was placed on 3 L nasal cannula. The patient is not oxygen dependent at baseline. She recovered slowly was stressed. A CTA of her chest was performed and demonstrated a small interlo bar PE in the left lower lobe and a possible pneumonia. She was given coverage for community-acquired pneumonia with Rocephin and azithromycin. Her vital signs other than her ambulatory pulse ox in the emergency department were temperature of 97.5, heart rate 117, respiratory was 26, oxygen saturation was 95% on room air at rest and a blood pressure of 121/72. Her CBC on presentation showed a chronic stable anemia. Coags were unremarkable. Her chemistry panel showed a mild hyponatremia with a sodium of 134 but was otherwise overtly unremarkable. Iron studies were obtained and were consistent with iron deficiency. Given her anemia stool guaiac was ordered as we were placing her on anticoagulation for her pulmonary embolism. She was placed on Eliquis 10 mg daily but unfortunately this morning had a bowel movement that was significantly bloody. She does have a history of colitis and there is documentation that it was ulcerative colitis however she refutes this and states that she does not have a history of ulcerative colitis and it was only generalized colitis. She had a colonoscopy [address] Stevenson of which I reviewed the pathology and there was no suggestion of colitis at that time. She states she is short of breath but denies any significant complaints otherwise. C. difficile and enteric pathology were negative. Stool lactoferrin was positive. Objective Data Objective Data Vital Signs: Vital Signs Temp Pulse Resp BP Pulse Ox O2 Del Method O2 Flow Rate 98.1 F 105 H 11 L 130/77 H 98 Nasal Cannula 2 09/24/23 14:15 09/24/23 14:15 09/24/23 14:15 09/24/23 14:15 09/24/23 14:15 09/24/23 14:15 09/24/23 14:15 Oxygen Flow Rate (L/min) 2 Oxygen Delivery Method Nasal Cannula Weight: 50.2 kg Body Mass Index (BMI) 20.2 Intake & Output: Intake and Output for Last 24 Hours 09/22/23 09/23/23 09/24/23 23:59 23:59 23:59 Intake Total 1054.17 / 1054.17 1115 / 1115 Balance 1054.17 / 1054.17 1115 / 1115 Lab / Micro Data 09/24/23 15:53 09/24/23 06:14 Labs: Laboratory Results - last 24 hr 09/23/23 14:30: Iron 24 L, TIBC 182 L, Iron Saturation 13.2 L, Ferritin 182 09/24/23 06:14: WBC 5.9, RBC 3.12 L, Hgb 8.5 L, Hct 28.2 L, MCV 90.4, MCH 27.2, MCHC 30.1 L, RDW Std Deviation 47.3 H, RDW Coeff of Hiram 14.3, Plt Count 187, MPV 10.8, Immature Gran % (Auto) 0.800, Neut % (Auto) 93.5 H, Lymph % (Auto) 4.6 L, [place] % (Auto) 0.8, Eos % (Auto) 0.3, Baso % (Auto) 0.0, Absolute Neuts (auto) 5.5, Absolute Lymphs (auto) 0.27 L, Nucleated RBC % 0, Sodium 134 L, Potassium 4.7, Chloride 103, Carbon Dioxide 29.0, Anion Gap 2 L, BUN 20 H, Creatinine 0.87, Estim Creat Clear Calc 42.83, Est GFR (MDRD) Af Amer 82, Est GFR (MDRD) Non-Af 68, BUN/Creatinine Ratio 23.1 H, Glucose 106, Calcium 8.6 09/24/23 08:54: Hgb 9.5 L 09/24/23 15:53: Hgb 8.9 L Micro: Microbiology 09/24/23 08:08 Stool Stool Occult Blood (ZULEIMA) - Final Occult Blood Positive Radiography Diagnostic Testing: Radiology Impression Chest CTA 09/23/23 14:00 IMPRESSION: undefined ADDENDUM: 09/23/23 1828 IMPRESSION: undefined Venous Doppler Study 09/24/23 08:35 Interpretation Summary Acute deep vein thrombosis is noted in the right soleus vein. Deep veins of the left lower extremity are patent and compressible segmentally. There is no evidence of left lower extremity deep vein thrombosis. The bilateral great saphenous veins appear patent and compressible segmentally. Ordering Physician: Marixa Aguirre Referring Physician: Vlad Dennis Performed By: Thaddeus Palumbo RVT Physical Exam Const alert, oriented x3, no apparent distress and average body habitus; Negative for healthy appearing Constitutional Narrative: Mildly tachypneic, elderly, white female, sitting up in bed, nursing staff at bedside, watching television, patient appears comfortable and nontoxic but chronically ill HEENT head/scalp atraumatic, moist oral mucous membranes and oropharynx normal HEENT Narrative: Mallampati 2, no thrush Eyes PERRL and EOMs intact bilaterally; Negative for conjunctivae normal Eyes Narrative: Pale conjunctiva bilaterally, no scleral icterus Neck no lymphadenopathy and supple Neck Narrative: Trachea midline, no thyroid enlargement Resp no retractions and no use of accessory muscles Resp Narrative: Rhonchi at bases bilaterally, mild tachypnea but no signs of extremis Auscultation: rhonchi; Negative for rales or wheezes Cardio regular rhythm, S1 normal heart sound, S2 normal heart sound, no murmurs, no rub, no gallops and no clicks Cardio Narrative: Mild tachycardia GI normal to inspection, nondistended, normoactive bowel sounds, soft to palpation and non-tender Extremity no clubbing, cyanosis or edema Extremity Narrative: Pedal pulses are 2+ Skin no rashes or lesions noted, no wounds, skin turgor normal, no jaundice, no petechiae and no mottling Neuro oriented x3, moves all extremities and no focal motor deficits Psych affect normal Psych Narrative: very pleasant Assessment & Plan Assessment/Plan (1) GI bleeding: (2) Pulmonary embolism: QUALIFIERS: Pulmonary embolism type: unspecified Chronicity: acute Acute cor pulmonale presence: without acute cor pulmonale Qualified Code(s): I26.99 - Other pulmonary embolism without acute cor pulmonale (3) Hypoxia: (4) Pneumonia: PLAN: Plan Hypoxia secondary to acute pulmonary embolism and suspected community-acquired pneumonia -Check COVID/flu/RSV panel -Check respiratory viral panel -Check strep pneumo and Legionella antigens -Stop apixaban due to rectal bleeding -Continue current antibiotics with ceftriaxone and azithromycin -Currently on 2 L nasal cannula -Not O2 dependent at baseline -Wean oxygen as able -With bleeding on anticoagulation will consult vascular surgery for IVC placement--> discussed with patient and she is agreeable -Will check bilateral lower extremity Dopplers -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 -Patient was treated with anticoagulation for 6 months and had no bleeding issues at that time -I-S/Acapella -Pulmonary toilet Bright red blood per rectum -Stop anticoagulation -Start Protonix 40 mg IV twice daily -Check hemoglobin every 6 -Consultation to GI for possible colonoscopy/EGD GERD -Continue PPI as noted above History of colitis -Continue home dicyclomine Hypertension -Continue home carvedilol COPD -Continue home inhalers Stage IV non-small cell lung CA -On chemo -Med port in place and sutures need removed--> discussed with general surgery and they will stop by and remove tomorrow -Continue valacyclovir -Continue outpatient follow-up with hematology after discharge Vitamin D deficiency -Continue home cholecalciferol History of Raynaud's disease -Patient does not appear to be any outpatient medicine -Monitor for symptoms History of tobacco abuse/COPD -Will reinitiate inhalers after discharge DVT prophylaxis -SCDs for now if Dopplers are negative -Chemoprophylaxis contraindicated due to bleeding CODE STATUS -DNR CCA with no intubation Charges/Coding Visit Charges Inpatient E&M: 00299 [facility] Hosp L3
[2023-09-24] MEDS: Bisacodyl 5 MG Tablet 20 MG PO (18:22)
[2023-09-24] MEDS: Polyethylene Glycol 3350 BOWEL PREP PO (19:03)
[2023-09-24 20:30] LABS: Hemoglobin 10.4 g/dL (12.0-15.0)
[2023-09-24] MEDS: Ondansetron 4 MG/2 ML Vial IV (22:08)
[2023-09-25 03:42] VITALS: BP 127/73; PULSE 110; RESP 20; TEMP 37.1; O2SAT 98
[2023-09-25 07:10] LABS: Absolute Lymphocyte Count 0.36 X10^3/uL (0.83-4.51); Absolute Neutrophil Count 3.2 X10^3/uL (2.0-7.7); Basophil# 0.02 X10^3/uL; Basophil% 0.5 % (0-1); Eosinophil# 0.02 X10^3/uL; Eosinophils% 0.5 % (0-5); Hematocrit 28.9 % (37-47); Lymphocyte # 0.36 X10^3/ul (0.83-4.51); Lymphocyte % 9.4 % (19-41); Mean Corp Hgb Conc 31.1 g/dL (32-36); Mean Corpuscular Hgb 27.5 pg (27.0-32.0); Mean Corpuscular Volume 88.4 fL (81-99); Monocyte# 0.14 X10^3/uL; Monocyte% 3.7 % (0-10); NRBC Flagged by Analyzer 0 % (0-5); Neutrophil # 3.15 X10^3/uL (2.7-7.7); Neutrophil % 82.8 % (47-70); POSITIVE DIFFERENTIAL YES; Platelet Count 184 K/mm3 (150-450); RBC Distribution Width CV 13.9 % (11.6-14.6); RBC Distribution Width SD 45.3 fl (35.1-43.9); Red Blood Count 3.27 M/mm3 (4.2-5.4); White Blood Count 3.8 K/mm3 (4.4-11.0)
[2023-09-25 07:44] LABS: ALB/GLOB Ratio 0.6 RATIO (0.9-2.4); AST(SGOT) 27 U/L (15-37); Alanine Aminotransfer ALT/SGPT 12 U/L (13-56); Albumin, Serum 2.4 g/dL (3.2-5.0); Alkaline Phosphatase 112 U/L (45-117); Anion Gap 7 (5-15); BUN 14 mg/dL (7-18); BUN/Creat Ratio 17.8 RATIO (10-20); Calcium,Total 8.8 mg/dL (8.5-10.1); Chloride 99 mmol/L (98-107); Creatinine, Serum 0.79 mg/dL (0.55-1.02); EST Glomerular Filtration Rate 75 mL/min (>60); Est Glom Filt Rate - Afr Amer 91 mL/min (>60); Estimated Creatinine Clearance 46.58 ml/min; Globulin 3.7 g/dL (2.2-4.2); Glucose 97 mg/dL (74-106); Magnesium 1.9 mg/dL (1.6-2.6); Phosphorus 2.8 mg/dL (2.5-4.9); Potassium 4.1 mmol/L (3.5-5.1); Protein, Total 6.1 g/dL (6.4-8.2); Sodium Level 133 mmol/L (136-145); Thyroid Stim Hormone (TSH) 2.93 uIU/mL (0.358-3.74)
[2023-09-25 07:45] VITALS: BP 132/77; PULSE 105; RESP 17; TEMP 36.6; O2SAT 97
--- NOTE | 2023-09-25 08:30 | PCM.OPRPT ---
Report of Operation Date of Procedure: 09/25/23 Pre-Operative Diagnosis: PE Post-Operative Diagnosis: same Surgery/Procedure Performed:: insertion inferior vena cava filter Surgeon: Solis Kirk Type of Anesthesia: Local and Sedation,Conscious Estimated Blood Loss (mL): 2 Description of Procedure: HPI: Patient is a 78-year-old female with history of lung cancer who is not a surgical candidate. She has been treated with several different regimens of chemo and immunotherapy. She recently was admitted with a pulmonary embolism and when she was initiated on anticoagulation she had significant lower GI bleed symptoms so a filter is now requested. Description of procedure: Upon obtaining informed consent and verification correct patient procedure site patient was taken to the [facility] where she was positioned prepped and draped in usual sterile fashion. Time was performed conscious sedation administered Versed and fentanyl. The right common femoral vein was evaluated with ultrasound and found to be patent and compressible. Skin overlying was anesthetized 1% lidocaine the vessel accessed with a micropuncture needle wire. This was then exchanged for micropuncture sheath routine injection ilio caval venogram was performed revealing patent right iliac vein system. The contrast filled the IVC and reflux into the renal veins not sufficient amount to determine their confluence. Vessels were normal caliber with no thrombus identified. Bentson wire was then advanced to the micropuncture sheath and the micropuncture sheath exchanged for the Cook Josr tulip filter delivery system which was advanced into position. The dilator was withdrawn and the doctor advanced in the position below the lowest renal vein and deployed. Completion venacavogram confirmed satisfactory positioning with no significant tilt. Sheath was then withdrawn and manual pressure held for 5 minutes with satisfactory stasis noted. Patient was then taken recovery room for bedrest prior to return to the medical surgical floor. Grafts/Implants Used: Cook Josr Tulip
--- NOTE | 2023-09-25 08:36 | NURSING ---
AC charge Nurse updated via backline: For Endos planning purposes [phone] Kiara is done with her lab specialist procedure. She's staying down there for 2hrs to recover. per AC Charge Nurse they haven't given them any add ons so she would let Fiorella OR charge nurse know.
[2023-09-25 08:48] VITALS: O2SAT 93
--- NOTE | 2023-09-25 10:18 | CASEMGMT ---
Addendum entered by Lola Rich 09/25/23 10:57: Received a message back from [facility], pt is active with SN. Original Note: Message sent to [facility] to confirm that pt is active with SN.
[2023-09-25 11:00] VITALS: BP 145/84; PULSE 91; RESP 16; TEMP 36.9; O2SAT 92
[2023-09-25] MEDS: Pantoprazole Sodium 40 MG in 0.9% Normal Saline (100mL MB+) 100 ML 330 MG IV ×2 (11:05→21:09)
[2023-09-25] MEDS: Carvedilol 12.5 MG Tablet PO ×2 (11:06→21:07)
[2023-09-25] MEDS: DiphenhydrAMINE 25 MG Capsule PO (12:09)
[2023-09-25] MEDS: Ceftriaxone 1 GM/50 ML BAG IV (12:30)
[2023-09-25] MEDS: Azithromycin 500 MG in Dextrose 5%-Water (250mL Bag) 250 ML 250 MG IV (13:15)
--- NOTE | 2023-09-25 13:15 | PN.HOSP_ITS ---
Reason for Visit Reason for Visit: Shortness of breath Subjective Subjective Patient states she is fatigued today. She did get some Benadryl for some itching and she states this helped the itching but did make her tired. She also indicates she did not sleep well last night do her bowel prep for colonoscopy later today. IVC filter was placed without difficulty and she has no complaints other than being fatigued at this time. Objective Data Objective Data Vital Signs: Vital Signs Temp Pulse Resp BP Pulse Ox O2 Del Method O2 Flow Rate 98.5 F 91 16 145/84 H 92 Nasal Cannula 2 09/25/23 11:00 09/25/23 11:00 09/25/23 11:00 09/25/23 11:00 09/25/23 11:00 09/25/23 12:28 09/25/23 12:28 Oxygen Flow Rate (L/min) 2 Oxygen Delivery Method Nasal Cannula Weight: 50.2 kg Body Mass Index (BMI) 20.2 Intake & Output: Intake and Output for Last 24 Hours 09/23/23 09/24/23 09/25/23 23:59 23:59 23:59 Intake Total 1054.17 / 1054.17 1792.5 / 1792.5 110 / 110 Balance 1054.17 / 1054.17 1792.5 / 1792.5 110 / 110 Lab / Micro Data 09/25/23 06:25 09/25/23 06:25 Labs: Laboratory Results - last 24 hr 09/24/23 15:53: Hgb 8.9 L 09/24/23 20:09: Hgb 10.4 L 09/25/23 06:25: WBC 3.8 L, RBC 3.27 L, Hgb 9.0 L, Hct 28.9 L, MCV 88.4, MCH 27.5, MCHC 31.1 L, RDW Std Deviation 45.3 H, RDW Coeff of Hiram 13.9, Plt Count 184, MPV 11.0, Immature Gran % (Auto) 3.100 H, Neut % (Auto) 82.8 H, Lymph % (Auto) 9.4 L, [place] % (Auto) 3.7, Eos % (Auto) 0.5, Baso % (Auto) 0.5, Absolute Neuts (auto) 3.2, Absolute Lymphs (auto) 0.36 L, Nucleated RBC % 0, Sodium 133 L , Potassium 4.1, Chloride 99, Carbon Dioxide 27.0, Anion Gap 7, BUN 14, Creatini ne 0.79, Estim Creat Clear Calc 46.58, Est GFR (MDRD) Af Amer 91, Est GFR (MDRD) Non-Af 75, BUN/Creatinine Ratio 17.8, Glucose 97, Calcium 8.8, Phosphorus 2.8, Magnesium 1.9, Total Bilirubin 0.40, AST 27, ALT 12 L, Alkaline Phosphatase 112, Total Protein 6.1 L, Albumin 2.4 L, Globulin 3.7, Albumin/Globulin Ratio 0.6 L, TSH 2.93 Micro: Microbiology 09/24/23 19:55 Mucosa - Nasopharyngeal Respiratory Panel (PCR) - Final 09/24/23 19:55 Mucosa - Nasopharyngeal Influenza & RSV (PCR) - Final 09/24/23 18:40 Urine, Clean Catch Legionella Antigen - Final 09/24/23 18:40 Urine, Clean Catch Streptococcus pneumoniae Antigen (M - Fin al 09/24/23 08:08 Stool Stool Occult Blood (ZULEIMA) - Final Occult Blood Positive Radiography Diagnostic Testing: Radiology Impression Venous Doppler Study 09/24/23 08:35 Interpretation Summary Acute deep vein thrombosis is noted in the right soleus vein. Deep veins of the left lower extremity are patent and compressible segmentally. There is no evidence of left lower extremity deep vein thrombosis. The bilateral great saphenous veins appear patent and compressible segmentally. Ordering Physician: Marixa Aguirre Referring Physician: Vlad Dennis Performed By: Thaddeus Palumbo RVT Physical Exam Const alert, oriented x3, no apparent distress and average body habitus; Negative for healthy appearing Constitutional Narrative: elderly, white female, lying in bed resting but awake, visitor at bedside, patient appears comfortable and nontoxic but chronically ill HEENT head/scalp atraumatic, moist oral mucous membranes and oropharynx normal Resp normal respiratory effort, no retractions, no use of accessory muscles and clear to auscultation bilaterally Resp Narrative: Diminished but clear Auscultation: Negative for rales, rhonchi or wheezes Cardio regular rhythm, S1 normal heart sound, S2 normal heart sound, no murmurs, no rub, no gallops and no clicks Cardio Narrative: Mild tachycardia GI normal to inspection, nondistended, normoactive bowel sounds, soft to palpation and non-tender Extremity no clubbing, cyanosis or edema Extremity Narrative: Pedal pulses are 2+ Skin Skin Narrative: Med port right chest with dressing intact and in place Neuro oriented x3 and moves all extremities Psych affect normal Psych Narrative: very pleasant, appears fatigued today Assessment & Plan Assessment/Plan (1) GI bleeding: (2) Pulmonary embolism: QUALIFIERS: Pulmonary embolism type: unspecified Chronicity: acute Acute cor pulmonale presence: without acute cor pulmonale Qualified Co de(s): I26.99 - Other pulmonary embolism without acute cor pulmonale (3) Hypoxia: (4) Pneumonia: PLAN: Plan Hypoxia secondary to acute pulmonary embolism and suspected community-acquired pneumonia -COVID/flu/RSV panel are negative -Respiratory viral panel unremarkable -Strep pneumo and Legionella antigens are negative -Transition to PO Augmentin--> day 3 of 7 for antibiotics -Currently on 2 L nasal cannula -Not O2 dependent at baseline -Wean oxygen as able--> sats are 98% however she is currently post procedure and waiting for another procedure so will wean following -IVC filter placed today -Lower extremity Doppler showed acute DVT in the right soleus vein with normal left lower extremity -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 -Patient was treated with anticoagulation for 6 months and had no bleeding issues at that time -I-S/Acapella -Pulmonary toilet Bright red blood per rectum -Stopped anticoagulation--> IVC filter placed today -Continue Protonix 40 mg IV twice daily for now until colonoscopy and EGD can be performed -Hemoglobin has been stable -Autoimmune and biochemical workup pending -Plan is for EGD and colonoscopy later today -GI is following-appreciate input GERD -Continue PPI as noted above History of colitis -Continue home dicyclomine Hypertension -Continue home carvedilol COPD -Continue home inhalers Stage IV non-small cell lung CA -On chemo -Med port sutures were removed by general surgery today -Continue valacyclovir -Continue outpatient follow-up with hematology after discharge Vitamin D deficiency -Continue home cholecalciferol History of Raynaud's disease -Patient does not appear to be any outpatient medicine -Monitor for symptoms History of tobacco abuse/COPD -Will reinitiate inhalers after discharge DVT prophylaxis -SCDs for now if Dopplers are negative -Chemoprophylaxis contraindicated due to bleeding CODE STATUS -DNR CCA with no intubation Charges/Coding Visit Charges Inpatient E&M: 19835 Subs Hosp L2
--- NOTE | 2023-09-25 14:52 | NURSING ---
call placed to advocate as family requested per Dr. Aguirre after Dr. Aguirre talked with pt/daughter.
--- NOTE | 2023-09-25 14:58 | NURSING ---
reached out to AC charge nurse via backline inquiring on time of procedure. aware they talked with endo change nurse Caitlyn whom has not heard from Dr. Ac about this patient yet. This nurse send Dr. Ac backline text regarding this and that family getting uphappy with having to wait. Informed AC charge nurse of this message as well, they stated they will let us know what they hear.
--- NOTE | 2023-09-25 15:01 | PCM.HOSP.N ---
Hospitalist Note Patient's daughter was at the bedside and had several questions and was angry about multiple issues and the nurses asked me to talk to her. I went to the room and got permission from the patient to talk to the daughter which she gave me permission to do so. The daughter was upset that she was started on anticoagulation in the first place because her chemo can increase her risk for bleeding. I explained that she came in with pulmonary embolus and standard of care for this is to anticoagulate. I explained that as soon as we noted that she was having rectal bleeding and the anticoagulation was stopped and we obtained serial hemoglobins which have been stable. The patient was concerned because she bled out. I explained that she did not bleed out and that her hemoglobin is now stable. She then asked why we were starving her and why her scopes have not been done yet and why she needed the scopes. I explained that if we can find a source of the blood loss that may be we can get her an anticoagulation in the future as she also has a clot in her lower extremity. She then asked me what we are going to do about the clot in her lung and I explained there is nothing we can do other than placed the IVC filter which we have done to prevent further clot burden from advancing to her lungs and causing further issues. I apologized and told her I cannot control what the endoscopy suite schedule is and she indicated that nobody seems to be able to explain anything at all she has done his hurry up and wait. She did not seem happy with any explanation that I gave and I did offer the abutment to come talk to her which she wanted to have done. The charge nurse contacted the [facility] for me. I again apologized and indicated we would feed her mom as soon as we get the scopes done.
--- NOTE | 2023-09-25 15:05 | NURSING ---
pt/family updated sr. operations manager placed to pt advocate.
--- NOTE | 2023-09-25 16:36 | NURSING ---
All documentation by Jose De Jesus REAL reviewed by nursing center tutor Odette Moffett RN
--- NOTE | 2023-09-25 17:25 | NURSING ---
talked with AC charge, aware no info from Dr. Ac regarding procedure at this time.
[2023-09-25 18:00] VITALS: BP 142/96; PULSE 108; RESP 18; TEMP 36.9; O2SAT 92
--- NOTE | 2023-09-25 19:54 | PN.GI_ITS ---
Subjective Subjective Patient was supposed to undergo an EGD colonoscopy today, but there were surgical emergencies that did not allow her to have the procedure done today. Her hemoglobin seems to be stable off of anticoagulation. She will undergo EGD colonoscopy first thing in the morning. Objective Data Objective Data Vital Signs: Vital Signs Temp Pulse Resp BP Pulse Ox O2 Del Method O2 Flow Rate 98.4 F 108 H 18 142/96 H 92 Nasal Cannula 2 09/25/23 18:00 09/25/23 18:00 09/25/23 18:00 09/25/23 18:00 09/25/23 18:00 09/25/23 18:00 09/25/23 18:00 Oxygen Flow Rate (L/min) 2 Oxygen Delivery Method Nasal Cannula Weight: 110 lb 10.753 oz Body Mass Index (BMI) 20.2 Intake & Output: Intake and Output for Last 24 Hours 09/23/23 09/24/23 09/25/23 23:59 23:59 23:59 Intake Total 1054.17 / 1054.17 1792.5 / 1792.5 415 / 415 Balance 1054.17 / 1054.17 1792.5 / 1792.5 415 / 415 Lab / Micro Data 09/25/23 06:25 09/25/23 06:25 Labs: Laboratory Results - last 24 hr 09/24/23 20:09: Hgb 10.4 L 09/25/23 06:25: WBC 3.8 L, RBC 3.27 L, Hgb 9.0 L, Hct 28.9 L, MCV 88.4, MCH 27.5, MCHC 31.1 L, RDW Std Deviation 45.3 H, RDW Coeff of Hiram 13.9, Plt Count 184, MPV 11.0, Immature Gran % (Auto) 3.100 H, Neut % (Auto) 82.8 H, Lymph % (Auto) 9.4 L, [place] % (Auto) 3.7, Eos % (Auto) 0.5, Baso % (Auto) 0.5, Absolute Neuts (auto) 3.2, Absolute Lymphs (auto) 0.36 L, Nucleated RBC % 0, Sodium 133 L , Potassium 4.1, Chloride 99, Carbon Dioxide 27.0, Anion Gap 7, BUN 14, Creatinine 0.79, Estim Creat Clear Calc 46.58, Est GFR (MDRD) Af Amer 91, Est GFR (MDRD) Non-Af 75, BUN/Creatinine Ratio 17.8, Glucose 97, Calcium 8.8, Phosphorus 2.8, Magnesium 1.9, Total Bilirubin 0.40, AST 27, ALT 12 L, Alkaline Phosphatase 112, Total Protein 6.1 L, Albumin 2.4 L, Globulin 3.7, Albumin/Globu senthil Ratio 0.6 L, TSH 2.93 Micro: Microbiology 09/24/23 19:55 Mucosa - Nasopharyngeal Respiratory Panel (PCR) - Final 09/24/23 19:55 Mucosa - Nasopharyngeal Influenza & RSV (PCR) - Final 09/24/23 18:40 Urine, Clean Catch Legionella Antigen - Final 09/24/23 18:40 Urine, Clean Catch Streptococcus pneumoniae Antigen (M - Final 09/24/23 08:08 Stool Stool Occult Blood (ZULEIMA) - Final Occult Blood Positive Physical Exam Const alert, oriented x3, no apparent distress and average body habitus; Negative for healthy appearing Constitutional Narrative: elderly, white female, lying in bed resting but awake, visitor at bedside, patient appears comfortable and nontoxic but chronically ill HEENT head/scalp atraumatic, moist oral mucous membranes and oropharynx normal Resp normal respiratory effort, no retractions, no use of accessory muscles and clear to auscultation bilaterally Resp Narrative: Diminished but clear Auscultation: Negative for rales, rhonchi or wheezes Cardio regular rhythm, S1 normal heart sound, S2 normal heart sound, no murmurs, no rub, no gallops and no clicks Cardio Narrative: Mild tachycardia GI normal to inspection, nondistended, normoactive bowel sounds, soft to palpation and non-tender Extremity no clubbing, cyanosis or edema Extremity Narrative: Pedal pulses are 2+ Skin Skin Narrative: Med port right chest with dressing intact and in place Neuro oriented x3 and moves all extremities Psych affect normal Psych Narrative: very pleasant, appears fatigued today Assessment & Plan Assessment/Plan (1) Hypoxia: (2) Pneumonia: (3) Pulmonary embolism: QUALIFIERS: Pulmonary embolism type: unspecified Chronicity: acute Acute cor pulmonale presence: without acute cor pulmonale Qualified Code(s): I26.99 - Other pulmonary embolism without acute cor pulmonale (4) GI bleeding: PLAN: Plan 78-year-old with past medical history of non-small cell cancer of the left lung status complicated by persistent left pleural effusion status post VATS procedure diagnosed back in 2015 status postchemotherapy with progressive metastasis and the development of a new pulmonary embolisms and started on Eliquis therapy. She possibly has a history of ulcerative colitis but has developed some lower GI bleeding in the setting of worsening anemia once being started on Eliquis. GI bleed -Possible reactivation of ulcerative colitis versus ischemic colitis versus CMV induced colitis -All symptoms of his diagnosis is upper GI bleed with rapid transit in the setting of recent starting of anticoagulation and on immunosuppressive patient. -Recommend EGD and colonoscopy to evaluate upper lower GI tract. Recommend stool studies for CMV, fecal leukocytes. Recommend to check ESR, CRP, IBD profile, ANCA because she can develop an ANCA associated vasculitis associated with non-small cell cancer which is a paraneoplastic syndrome. Pulmonary embolism with community-acquired pneumonia and hypoxia ? Hypoxia secondary to ambulation ? Continue with Rocephin and azithromycin ? Trace small PE in the left lower lobe, started on Eliquis at 10 mg p.o. twice daily Stage IV non-small cell lung cancer ? Continuing with chemotherapy ?She understands that this is not curative Charges/Coding Visit Charges Inpatient E&M: 65483 Subs Hosp L3
[2023-09-25] MEDS: Acyclovir 200 MG Capsule 400 MG PO (21:07)
[2023-09-25] MEDS: Amox/Clavulanate 875 MG Tablet PO (21:07)
[2023-09-26] VITALS (12 sets, daily range): BP systolic 107–149; BP diastolic 64–97; PULSE 93–113; RESP 14–22; TEMP 36.2–36.9; O2SAT 92–100; BMI 20.2
--- NOTE | 2023-09-26 08:15 | PCM.PN.SRG ---
Subjective Subjective Saida was seen resting comfortably in bed this morning. She states she tolerated the IVC insertion very well yesterday with minimal discomfort. She is not having any pain/discomfort, bleeding, or swelling at the R groin access site. Objective Data Objective Data Vital Signs: Vital Signs Temp Pulse Resp BP Pulse Ox O2 Del Method O2 Flow Rate 97.2 F L 93 17 135/81 H 98 Nasal Cannula 2 09/26/23 02:00 09/26/23 02:00 09/26/23 02:00 09/26/23 02:00 09/26/23 02:00 09/26/23 02:12 09/26/23 02:12 Oxygen Flow Rate (L/min) 2 Oxygen Delivery Method Nasal Cannula Weight: 110 lb 10.753 oz Body Mass Index (BMI) 20.2 Intake & Output: Intake and Output for Last 24 Hours 09/24/23 09/25/23 09/26/23 23:59 23:59 23:59 Intake Total 1792.5 / 1792.5 525 / 525 0 / 0 Balance 1792.5 / 1792.5 525 / 525 0 / 0 Lab / Micro Data 09/25/23 06:25 09/25/23 06:25 Micro: Microbiology 09/24/23 19:55 Mucosa - Nasopharyngeal Respiratory Panel (PCR) - Final 09/24/23 19:55 Mucosa - Nasopharyngeal Influenza & RSV (PCR) - Final 09/24/23 18:40 Urine, Clean Catch Legionella Antigen - Final 09/24/23 18:40 Urine, Clean Catch Streptococcus pneumoniae Antigen (M - Final 09/24/23 08:08 Stool Stool Occult Blood (ZULEIMA) - Final Occult Blood Positive Physical Exam Const alert, oriented x3, no apparent distress and healthy appearing General Appearance: cooperative; Negative for combative or lethargic Orientation / Consciousness: awake Exam Limitations: no limitations HEENT Head and Scalp: normocephalic and atraumatic Eyes EOMs intact bilaterally General Eye: normal appearance of both eyes Neck full ROM General: trachea midline Resp normal respiratory effort, no use of accessory muscles and clear to auscultation bilaterally Effort and Inspection: Negative for labored, stridor or audible wheezes Cardio regular rate and regular rhythm Peripheral Pulses: brachial pulses present, radial pulses present, femoral pulses present, popliteal pulses present, posterior tibial pulses present and dorsalis pedis pulses present Back/Spine Cervical Spine: cervical ROM normal Extremity full ROM, normal capillary refill and no clubbing, cyanosis or edema Extremity Narrative: R groin access site with dry pressure dressing in place, no bleed-through. No ecchymosis visible around the dressing. No focal swelling. No tenderness to palpation. Skin no rashes or lesions noted and no wounds Neuro oriented x3, CN's II-XII intact bilaterally, no focal motor deficits and no sensory deficits noted Psych thought process normal, cooperative, affect normal, speech normal and activity/motor behavior normal Assessment & Plan Assessment/Plan (1) Pulmonary embolism: QUALIFIERS: Pulmonary embolism type: unspecified Chronicity: acute Acute cor pulmonale presence: without acute cor pulmonale Qualified Code(s): I26.99 - Other pulmonary embolism without acute cor pulmonale PLAN: She is s/p IVC filter insertion. R groin access site satisfactory in appearance. Dry dressing in R groin can be removed this afternoon. Will have her follow-up as an outpatient in 3-4 weeks, our office will contact her to schedule.
[2023-09-26 08:16] LABS: Absolute Lymphocyte Count 0.14 X10^3/uL (0.83-4.51); Absolute Neutrophil Count 1.4 X10^3/uL (2.0-7.7); Hematocrit 32.6 % (37-47); Hemoglobin 10.3 g/dL (12.0-15.0); Lymphocyte # 0.14 X10^3/ul (0.83-4.51); Lymphocyte % 8.6 % (19-41); Mean Corp Hgb Conc 31.6 g/dL (32-36); Mean Corpuscular Hgb 27.6 pg (27.0-32.0); Mean Corpuscular Volume 87.4 fL (81-99); Mean Platelet Vol. 11.1 fl (6.2-12.0); Monocyte# 0.06 X10^3/uL; Monocyte% 3.7 % (0-10); NRBC Flagged by Analyzer 0 % (0-5); Neutrophil % 86.5 % (47-70); POSITIVE DIFFERENTIAL YES; Platelet Count 154 K/mm3 (150-450); RBC Distribution Width CV 13.7 % (11.6-14.6); RBC Distribution Width SD 43.8 fl (35.1-43.9); Red Blood Count 3.73 M/mm3 (4.2-5.4); White Blood Count 1.6 K/mm3 (4.4-11.0)
[2023-09-26 08:22] LABS: Differential Indicated SCAN CRITERIA MET
--- NOTE | 2023-09-26 08:30 | COLBX_PTH ---
PATIENT: GEE LAURA LOC: [facility] U#:[id number] AGE/SX: 78/F ROOM: FL322 RE09/23/[address]: Dr. Marixa Aguirre DO : 1945 BED: 1 DIS: 09/27/2023 SPEC #: [id number] RECD: 09/27/23 07:14 STATUS: ISACC COLLINS #: [id number] LUCY: 09/26/23 08:[address]: Enrioc Ac DEPT: SURGICAL PATHOLOGY RECD BY: Nakia Duran ENTERED: 09/27/23 07:15 SP TYPE: COLON BX OTHR DR: MD Dr. Marixa Stark DO Dr. Nicholas F Kotsonis, MD Dr. Paul Nielsen, MD Tissues: Cecum, NOS Procedures: Surgery Specimen Level IV Comments: @ Ordering doctor for SUIV edited from to @ meagan TIRADO at 10/02/23 0944 @ Submitting doctor edited from to @ by CANDIDA at 10/02/23 0944 HEADER OPERATION: Colonoscopy, EGD, Electrohemostasis, biopsy PRE-OP DIAGNOSIS: GI bleeding TISSUE SUBMITTED: Cecum ischemic colitis, biopsy MICROSCOPIC DIAGNOSIS Cecum, biopsy; No significant pathologic change. See comment. / 09/30/2023 COMMENT There is focal recent mucosal hemorrhage. Features of ischemic colitis are not identified. Clinical correlation suggested. MICROSCOPIC DESCRIPTION Slides are reviewed. GROSS DESCRIPTION Received in fixative is one container labeled with the patient's name and designated Cecum ischemic colitis biopsy. The specimen consists of multiple irregular fragments of light pinto soft tissue that in aggregate measure 0.6 x 0.4 x 0.1 cm. The specimen is totally submitted in one cassette. TAYLOR/ 09/27/23 TC:5 CPT: 66330
[2023-09-26] MEDS: Folic Acid 1 MG Tablet PO (08:50)
[2023-09-26] MEDS: Amox/Clavulanate 875 MG Tablet PO ×2 (08:50→20:53)
[2023-09-26] MEDS: Carvedilol 12.5 MG Tablet PO ×2 (08:51→20:53)
[2023-09-26] MEDS: Acyclovir 200 MG Capsule 400 MG PO ×2 (08:51→20:53)
[2023-09-26] MEDS: Pantoprazole Sodium 40 MG in 0.9% Normal Saline (100mL MB+) 100 ML 330 MG IV ×2 (08:55→20:55)
[2023-09-26 09:58] LABS: Anion Gap 8 (5-15); BUN 19 mg/dL (7-18); BUN/Creat Ratio 25.1 RATIO (10-20); Calcium,Total 9.1 mg/dL (8.5-10.1); Chloride 102 mmol/L (98-107); Creatinine, Serum 0.76 mg/dL (0.55-1.02); EST Glomerular Filtration Rate 79 mL/min (>60); Est Glom Filt Rate - Afr Amer 95 mL/min (>60); Estimated Creatinine Clearance 46.58 ml/min; Glucose 143 mg/dL (74-106); Potassium 4.5 mmol/L (3.5-5.1); Sodium Level 134 mmol/L (136-145)
--- NOTE | 2023-09-26 15:07 | PN.HOSP_ITS ---
Reason for Visit Reason for Visit: Shortness of breath Subjective Subjective Patient was disappointed she did not get ever colonoscopy and EGD yesterday. She did get full liquids last night but frustrated due to the delay. I apologized and explained that it was related to acute cases and lack of anesthesia. Plan is to do it today per discussion with Dr. Ac. I did discuss that we may be able to discharge her home tomorrow depending on how she does today and after her procedure. Objective Data Objective Data Vital Signs: Vital Signs Temp Pulse Resp BP Pulse Ox O2 Del Method O2 Flow Rate 97.1 F L 105 H 16 148/93 H 93 Room Air 2 09/26/23 13:47 09/26/23 13:47 09/26/23 13:47 09/26/23 13:47 09/26/23 13:47 09/26/23 13:47 09/26/23 08:00 Oxygen Flow Rate (L/min) 2 Oxygen Delivery Method Room Air Weight: 50.2 kg Body Mass Index (BMI) 20.2 Intake & Output: Intake and Output for Last 24 Hours 09/24/23 09/25/23 09/26/23 23:59 23:59 23:59 Intake Total 1792.5 / 1792.5 525 / 525 110 / 110 Balance 1792.5 / 1792.5 525 / 525 110 / 110 Lab / Micro Data 09/26/23 07:36 09/26/23 07:36 Labs: Laboratory Results - last 24 hr 09/26/23 07:36: WBC 1.6 L, RBC 3.73 L, Hgb 10.3 L, Hct 32.6 L, MCV 87.4, MCH 27.6, MCHC 31.6 L, RDW Std Deviation 43.8, RDW Coeff of Hiram 13.7, Plt Count 154, MPV 11.1, Immature Gran % (Auto) 1.200 H, Neut % (Auto) 86.5 H, Lymph % (Auto) 8.6 L, [place] % (Auto) 3.7, Eos % (Auto) 0.0, Baso % (Auto) 0.0, Absolute Neuts (auto) 1.4 L, Absolute Lymphs (auto) 0.14 L, Nucleated RBC % 0, Diff Path Review November, Sodium 134 L, Potassium 4.5, Chloride 102, Carbon Dioxide 24.0, Anion Gap 8, BUN 19 H, Creatinine 0.76, Estim Creat Clear Calc 46.58, Est GFR (MDRD) Af Amer 95, Est GFR (MDRD) Non-Af 79, BUN/Creatinine Ratio 25.1 H, Glucose 143 H , Calcium 9.1 Micro: Microbiology 09/24/23 19:55 Mucosa - Nasopharyngeal Respiratory Panel (PCR) - Final 09/24/23 19:55 Mucosa - Nasopharyngeal Influenza & RSV (PCR) - Final 09/24/23 18:40 Urine, Clean Catch Legionella Antigen - Final 09/24/23 18:40 Urine, Clean Catch Streptococcus pneumoniae Antigen (M - Final 09/24/23 08:08 Stool Stool Occult Blood (ZULEIMA) - Final Occult Blood Positive Physical Exam Const alert, oriented x3, no apparent distress and average body habitus; Negative for healthy appearing Constitutional Narrative: elderly, white female, lying in bed resting but awake, watching television, patient appears comfortable and nontoxic but chronically ill HEENT head/scalp atraumatic, moist oral mucous membranes and oropharynx normal Resp normal respiratory effort, no retractions, no use of accessory muscles and clear to auscultation bilaterally Resp Narrative: Diminished but clear Auscultation: Negative for rales, rhonchi or wheezes Cardio regular rhythm, S1 normal heart sound, S2 normal heart sound, no murmurs, no rub, no gallops and no clicks Cardio Narrative: Mild tachycardia GI normal to inspection, nondistended, normoactive bowel sounds, soft to palpation and non-tender Extremity no clubbing, cyanosis or edema Extremity Narrative: Pedal pulses are 2+ Neuro oriented x3, moves all extremities and no focal motor deficits Psych affect normal Psych Narrative: very pleasant, appears fatigued today Assessment & Plan Assessment/Plan (1) GI bleeding: (2) Pulmonary embolism: QUALIFIERS: Pulmonary embolism type: unspecified Chronicity: acute Acute cor pulmonale presence: without acute cor pulmonale Qualified Code(s): I26.99 - Other pulmonary embolism without acute cor pulmonale (3) Hypoxia: (4) Pneumonia: PLAN: Plan Hypoxia secondary to acute pulmonary embolism and suspected community-acquired pneumonia -COVID/flu/RSV panel are negative -Respiratory viral panel unremarkable -Strep pneumo and Legionella antigens are negative -Transition to PO Augmentin--> day 4 of 7 for antibiotics -Currently 93% on room air at rest wean following -IVC filter placed on 09/25/2023 -Lower extremity Doppler showed acute DVT in the right soleus vein with normal left lower extremity -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 -Patient was treated with anticoagulation for 6 months and had no bleeding issues at that time -I-S/Acapella -Pulmonary toilet Bright red blood per rectum -Stopped anticoagulation--> IVC filter placed 09/25/2023 -Continue Protonix 40 mg IV twice daily for now until colonoscopy and EGD can be performed -Hemoglobin remains stable -Autoimmune and biochemical workup pending -EGD and colonoscopy got delayed yesterday due to acuity of cases and lack of anesthesiology availability--> EGD and colonoscopy pushed until today -GI is following-appreciate input Tachycardia -Does not appear to be related to bleeding -May be physiologic with PE -Patient is already on carvedilol 12.5 mg p.o. twice daily and blood pressures have consistently been elevated -If she remains elevated after scopes with ongoing elevated heart rate I think we can go ahead and transition her to carvedilol 25 mg however her heart rate upon review in our documentation from even prior to this admission she has had ongoing intermittent tachycardia GERD -Continue PPI as noted above History of colitis -Continue home dicyclomine Hypertension -Continue home carvedilol COPD -Continue home inhalers Stage IV non-small cell lung CA -On chemo -Med port sutures were removed by general surgery today -Continue valacyclovir -Continue outpatient follow-up with hematology after discharge Vitamin D deficiency -Continue home cholecalciferol History of Raynaud's disease -Patient does not appear to be any outpatient medicine -Monitor for symptoms History of tobacco abuse/COPD -Will reinitiate inhalers after discharge DVT prophylaxis -Continue SCDs CODE STATUS -DNR CCA with no intubation Charges/Coding Visit Charges Inpatient E&M: 15711 Subs Hosp L2
--- NOTE | 2023-09-26 16:01 | OP.CCLET_ITS ---
09/26/2023 Vlad Dennis MD [address] [id number] Re : Upper GI endoscopy procedure for Saida Craig Dear Dr. Dennis This procedure was performed on September. My impressions and recommendations are as follows: Impressions : - Normal esophagus. - Three bleeding angiodysplastic lesions in the stomach. Injected. Treated with a heater probe. - Normal third portion of the duodenum. - No specimens collected. Recommendations : - Return patient to [facility] for ongoing care. - Resume regular diet. - Continue present medications. - Use Protonix (pantoprazole) 40 mg PO daily. My findings are described in the full procedure note, which is enclosed. If I can be of further assistance, please feel free to contact me at . Sincerely, Enrico Ac, 09/26/2023 4:01:02 PM This report has been signed electronically.
--- NOTE | 2023-09-26 16:01 | OP.EGD_ITS ---
Patient Name: Saida Craig Procedure Date: 09/26/2023 3:18 PM Date of : 1945 Age: 78 Procedure: Upper GI endoscopy Indications: Iron deficiency anemia, Hematochezia Providers: Enrico Ac DO Medicines: Monitored Anesthesia Care Patient Profile: This is a 78 year old female. Refer to note in patient chart for documentation of history and physical. Patient has symptoms of acute abdominal cramping. Complications: No immediate complications. Procedure: Pre-Anesthesia Assessment: - Prior to the procedure, a History and Physical was performed, and patient medications and allergies were reviewed. The patient is competent. The risks and benefits of the procedure and the sedation options and risks were discussed with the patient. All questions were answered and informed consent was obtained. Patient identification and proposed procedure were verified by the physician in the pre-procedure area. Mental Status Examination: alert and oriented. Airway Examination: normal oropharyngeal airway and neck mobility. Respiratory Examination: clear to auscultation. CV Examination: normal. Prophylactic Antibiotics: The patient does not require prophylactic antibiotics. Prior Anticoagulants: The patient has taken no anticoagulant or antiplatelet agents. ASA Grade Assessment: IV - A patient with severe systemic disease that is a constant threat to life. After reviewing the risks and benefits, the patient was deemed in satisfactory condition to undergo the procedure. The anesthesia plan was to use monitored anesthesia care (MAC). Immediately prior to administration of medications, the patient was re-assessed for adequacy to receive sedatives. The heart rate, respiratory rate, oxygen saturations, blood pressure, adequacy of pulmonary ventilation, and response to care were monitored throughout the procedure. The physical status of the patient was re-assessed after the procedure. After obtaining informed consent, the endoscope was passed under direct vision. Throughout the procedure, the patient's blood pressure, pulse, and oxygen saturations were monitored continuously. The colonoscope was introduced through the mouth, and advanced to the second part of duodenum. The upper GI endoscopy was accomplished without difficulty. The patient tolerated the procedure well. Scope In: 3:30:33 PM Scope Out: 3:36:40 PM Total Procedure Duration Time 0 hours 6 minutes 7 seconds Findings: The examined esophagus was normal. Three 5 mm angiodysplastic lesions with bleeding were found in the cardia. Area was successfully injected with 5 mL of a 0.1 mg/mL solution of epinephrine for drug delivery. Coagulation for hemostasis using heater probe was successful. Estimated blood loss was minimal. The third portion of the duodenum was normal. Patchy moderately erythematous mucosa without active bleeding and with no stigmata of bleeding was found in the duodenal bulb. Impression: - Normal esophagus. - Three bleeding angiodysplastic lesions in the stomach. Injected. Treated with a heater probe. - Normal third portion of the duodenum. - No specimens collected. Recommendation: - Return patient to [facility] for ongoing care. - Resume regular diet. - Continue present medications. - Use Protonix (pantoprazole) 40 mg PO daily. Procedure Code(s): --- Professional --- 86829, Esophagogastroduodenoscopy, flexible, transoral; with control of bleeding, any method 19078, 59,51, Esophagogastroduodenoscopy, flexible, transoral; with directed submucosal injection(s), any substance CPT copyright 2021 [employer]. All rights reserved. The codes documented in this report are preliminary and upon wheat grower review may be revised to meet current compliance requirements. Enrico Ac DO 09/26/2023 4:01:02 PM This report has been signed electronically. Number of Addenda: 0 Note Initiated On: 09/26/2023 3:18 PM
--- NOTE | 2023-09-26 16:04 | OP.COLON_ITS ---
Patient Name: Saida Craig Procedure Date: 09/26/2023 3:36 PM Date of : 1945 Age: 78 Procedure: Colonoscopy Indications: Hematochezia Providers: Enrico Ac DO Medicines: Monitored Anesthesia Care Patient Profile: This is a 78 year old female. Refer to note in patient chart for documentation of history and physical. Patient has symptoms of acute abdominal cramping. Last Colonoscopy: date unknown. Unable to locate last colonoscopy report. Complications: No immediate complications. Procedure: Pre-Anesthesia Assessment: - Prior to the procedure, a History and Physical was performed, and patient medications and allergies were reviewed. The patient is competent. The risks and benefits of the procedure and the sedation options and risks were discussed with the patient. All questions were answered and informed consent was obtained. Patient identification and proposed procedure were verified by the physician in the pre-procedure area. Mental Status Examination: alert and oriented. Airway Examination: normal oropharyngeal airway and neck mobility. Respiratory Examination: clear to auscultation. CV Examination: normal. Prophylactic Antibiotics: The patient does not require prophylactic antibiotics. Prior Anticoagulants: The patient has taken no anticoagulant or antiplatelet agents. ASA Grade Assessment: IV - A patient with severe systemic disease that is a constant threat to life. After reviewing the risks and benefits, the patient was deemed in satisfactory condition to undergo the procedure. The anesthesia plan was to use monitored anesthesia care (MAC). Immediately prior to administration of medications, the patient was re-assessed for adequacy to receive sedatives. The heart rate, respiratory rate, oxygen saturations, blood pressure, adequacy of pulmonary ventilation, and response to care were monitored throughout the procedure. The physical status of the patient was re-assessed after the procedure. After I obtained informed consent, the scope was passed under direct vision. Throughout the procedure, the patient's blood pressure, pulse, and oxygen saturations were monitored continuously. The colonoscope was introduced through the anus and advanced to the terminal ileum. The colonoscopy was performed without difficulty. The patient tolerated the procedure well. The quality of the bowel preparation was adequate. Scope In: 3:40:52 PM Scope Withdrawal Time 0 hours 6 minutes 9 seconds Scope Out: 3:53:10 PM Total Procedure Duration Time 0 hours 12 minutes 18 seconds Findings: Hemorrhoids were found on perianal exam. Moderate rectal prolapse was present. Patchy moderate inflammation characterized by erosions, erythema and friability was found at the splenic flexure, at the hepatic flexure and in the ascending colon. Biopsies were taken with a cold forceps for histology. Verification of patient identification for the specimen was done. Estimated blood loss was minimal. Impression: - Hemorrhoids found on perianal exam. - Rectal prolapse. - Patchy moderate inflammation was found at the splenic flexure, at the hepatic flexure and in the ascending colon secondary to ischemic colitis. Biopsied. Recommendation: - Return patient to hospital [facility] for ongoing care. - Resume regular diet. - Continue present medications. - Await pathology results. - Repeat colonoscopy. Procedure Code(s): --- Professional --- 51584, Colonoscopy, flexible; with biopsy, single or multiple CPT copyright 2021 [employer]. All rights reserved. The codes documented in this report are preliminary and upon backrest assembler review may be revised to meet current compliance requirements. Enrico Ac DO 09/26/2023 4:04:28 PM This report has been signed electronically. Number of Addenda: 0 Note Initiated On: 09/26/2023 3:36 PM
--- NOTE | 2023-09-26 16:05 | OP.CCLET_ITS ---
09/26/2023 Vlad Dennis MD [address] [place] [address] Re : Colonoscopy procedure for Saida Craig Dear Dr. Dennis This procedure was performed on September. My impressions and recommendations are as follows: Impressions : - Hemorrhoids found on perianal exam. - Rectal prolapse. - Patchy moderate inflammation was found at the splenic flexure, at the hepatic flexure and in the ascending colon secondary to ischemic colitis. Biopsied. Recommendations : - Return patient to [facility] for [facility] care. - Resume regular diet. - Continue present medications. - Await pathology results. - Repeat colonoscopy. My findings are described in the full procedure note, which is enclosed. If I can be of further assistance, please feel free to contact me at . Sincerely, Enrico Ac, 09/26/2023 4:04:28 PM This report has been signed electronically.
[2023-09-26] MEDS: 0.9% Saline Lock 10 ML Syringe IV (22:24)
[2023-09-26] MEDS: MELATONIN 3 MG TABLET 6 MG PO (23:32)
[2023-09-27] VITALS (9 sets, daily range): BP systolic 132–144; BP diastolic 82–89; PULSE 90–101; RESP 16–20; TEMP 36.6–37.3; O2SAT 90–97
[2023-09-27 06:08] LABS: Hematocrit 27.8 % (37-47); Hemoglobin 8.8 g/dL (12.0-15.0); Mean Corp Hgb Conc 31.7 g/dL (32-36); Mean Corpuscular Hgb 27.4 pg (27.0-32.0); Mean Corpuscular Volume 86.6 fL (81-99); Mean Platelet Vol. 10.6 fl (6.2-12.0); Platelet Count 140 K/mm3 (150-450); RBC Distribution Width CV 13.7 % (11.6-14.6); RBC Distribution Width SD 43.2 fl (35.1-43.9); Red Blood Count 3.21 M/mm3 (4.2-5.4); White Blood Count 3.9 K/mm3 (4.4-11.0)
[2023-09-27] MEDS: 0.9% Saline Lock 10 ML Syringe IV (06:08)
[2023-09-27 07:13] LABS: Anion Gap 5 (5-15); BUN 31 mg/dL (7-18); BUN/Creat Ratio 32.3 RATIO (10-20); Calcium,Total 9.1 mg/dL (8.5-10.1); Chloride 103 mmol/L (98-107); Creatinine, Serum 0.96 mg/dL (0.55-1.02); EST Glomerular Filtration Rate 60 mL/min (>60); Est Glom Filt Rate - Afr Amer 73 mL/min (>60); Estimated Creatinine Clearance 38.81 ml/min; Glucose 149 mg/dL (74-106); Potassium 4.1 mmol/L (3.5-5.1); Sodium Level 135 mmol/L (136-145)
--- NOTE | 2023-09-27 07:33 | EX.PCM.PN.GI ---
Subjective Subjective Patient is doing very well. She states that she wants to go home. Objective Data Objective Data Vital Signs: Vital Signs Temp Pulse Resp BP Pulse Ox O2 Del Method O2 Flow Rate 99.1 F 101 H 16 132/82 H 96 Room Air 2 09/27/23 14:38 09/27/23 14:38 09/27/23 14:38 09/27/23 14:38 09/27/23 14:38 09/27/23 14:38 09/27/23 08:38 Oxygen Flow Rate (L/min) 2 Oxygen Delivery Method Room Air Weight: 110 lb 10.753 oz Body Mass Index (BMI) 20.2 Intake & Output: Intake and Output for Last 24 Hours 09/25/23 09/26/23 09/27/23 23:59 23:59 23:59 Intake Total 525 / 525 220 / 220 110 / 110 Balance 525 / 525 220 / 220 110 / 110 Lab / Micro Data 09/27/23 10:40 09/27/23 06:00 Labs: Laboratory Results - last 24 hr 09/26/23 07:36: Diff Path Review Reviewed 09/27/23 06:00: WBC 3.9 L, RBC 3.21 L, Hgb 8.8 L, Hct 27.8 L, MCV 86.6, MCH 27.4, MCHC 31.7 L, RDW Std Deviation 43.2, RDW Coeff of Hiram 13.7, Plt Count 140 L, MPV 10.6, Sodium 135 L, Potassium 4.1, Chloride 103, Carbon Dioxide 27.0, Anion Gap 5, BUN 31 H, Creatinine 0.96, Estim Creat Clear Calc 38.81, Est GFR (MDRD) Af Amer 73, Est GFR (MDRD) Non-Af 60, BUN/Creatinine Ratio 32.3 H, Glucose 149 H, Calcium 9.1 09/27/23 10:40: Hgb 10.6 L Micro: Microbiology 09/27/23 10:05 Stool Clostridioides difficile (PCR) - Final 09/24/23 19:55 Mucosa - Nasopharyngeal Respiratory Panel (PCR) - Final 09/24/23 19:55 Mucosa - Nasopharyngeal Influenza & RSV (PCR) - Final 09/24/23 18:40 Urine, Clean Catch Legionella Antigen - Final 09/24/23 18:40 Urine, Clean Catch Streptococcus pneumoniae Antigen (M - Final 09/24/23 08:08 Stool Stool Occult Blood (ZULEIMA) - Final Occult Blood Positive Physical Exam Const alert, oriented x3, no apparent distress and average body habitus; Negative for healthy appearing Constitutional Narrative: elderly, white female, walking around the room getting her ambulatory pulse ox tested with nursing at the bedside, patient appears comfortable and nontoxic but chronically ill General Appearance: cooperative, comfortable, well kempt and well developed HEENT normocephalic, head/scalp atraumatic, hearing grossly normal bilaterally, moist oral mucous membranes and oropharynx normal HEENT Narrative: Dentures in place, Mallampati 2, no thrush Eyes PERRL and EOMs intact bilaterally; Negative for conjunctivae normal Eyes Narrative: Pale conjunctiva bilaterally, no scleral icterus Neck no lymphadenopathy and supple Neck Narrative: Trachea midline, no thyroid enlargement Resp normal respiratory effort, no retractions, no use of accessory muscles and clear to auscultation bilaterally Resp Narrative: Diminished but clear Auscultation: Negative for rales, rhonchi or wheezes Cardio regular rate, regular rhythm, S1 normal heart sound, S2 normal heart sound, no murmurs, no rub, no gallops and no clicks GI normal to inspection, nondistended, normoactive bowel sounds, soft to palpation and non-tender Extremity no clubbing, cyanosis or edema Extremity Narrative: Pedal pulses are 2+ Skin no rashes or lesions noted, no wounds, skin turgor normal, no jaundice, no petechiae and no mottling Skin Narrative: Med port right chest with dressing intact and in place, Pleurx catheter and left-sided chest Neuro oriented x3, moves all extremities and no focal motor deficits Speech: speech normal Psych affect normal Psych Narrative: very pleasant, appears fatigued today Assessment & Plan Assessment/Plan (1) Hypoxia: (2) Pneumonia: (3) Pulmonary embolism: QUALIFIERS: Pulmonary embolism type: unspecified Chronicity: acute Acute cor pulmonale presence: without acute cor pulmonale Qualified Code(s): I26.99 - Other pulmonary embolism without acute cor pulmonale (4) GI bleeding: PLAN: Plan 78-year-old with past medical history of non-small cell cancer of the left lung status complicated by persistent left pleural effusion status post VATS procedure diagnosed back in 2014 status postchemotherapy with progressive metastasis and the development of a new pulmonary embolisms and started on Eliquis therapy. She possibly has a history of ulcerative colitis but has developed some lower GI bleeding in the setting of worsening anemia once being started on Eliquis. GI bleed -Possible reactivation of ulcerative colitis versus ischemic colitis versus CMV induced colitis -All symptoms of his diagnosis is upper GI bleed with rapid transit in the setting of recent starting of anticoagulation and on immunosuppressive patient. -Recommend EGD and colonoscopy to evaluate upper lower GI tract. Recommend stool studies for CMV, fecal leukocytes. Recommend to check ESR, CRP, IBD profile, ANCA because she can develop an ANCA associated vasculitis associated with non-small cell cancer which is a paraneoplastic syndrome. Pulmonary embolism with community-acquired pneumonia and hypoxia ? Hypoxia secondary to ambulation ? Continue with Rocephin and azithromycin ? Trace small PE in the left lower lobe, started on Eliquis at 10 mg p.o. twice daily Stage IV non-small cell lung cancer ? Continuing with chemotherapy ?She understands that this is not curative 09/27/23- Findings from the EGD and Colonoscopy- Findings: The examined esophagus was normal. Three 5 mm angiodysplastic lesions with bleeding were found in the cardia. Area was successfully injected with 5 mL of a 0.1 mg/mL solution of epinephrine for drug delivery. Coagulation for hemostasis using heater probe was successful. Estimated blood loss was minimal. The third portion of the duodenum was normal. Patchy moderately erythematous mucosa without active bleeding and with no stigmata of bleeding was found in the duodenal bulb. Impression: - Normal esophagus. - Three bleeding angiodysplastic lesions in the stomach. Injected. Treated with a heater probe. - Normal third portion of the duodenum. - No specimens collected. Recommendation: - Return patient to [facility] for ongoing care. - Resume regular diet. - Continue present medications. - Use Protonix (pantoprazole) 40 mg PO daily. Findings: Hemorrhoids were found on perianal exam. Moderate rectal prolapse was present. Patchy moderate inflammation characterized by erosions, erythema and friability was found at the splenic flexure, at the hepatic flexure and in the ascending colon. Biopsies were taken with a cold forceps for histology. Verification of patient identification for the specimen was done. Estimated blood loss was minimal. Impression: - Hemorrhoids found on perianal exam. - Rectal prolapse. - Patchy moderate inflammation was found at the splenic flexure, at the hepatic flexure and in the ascending colon secondary to ischemic colitis. Biopsied. Recommendation: - Return patient to [facility] for ongoing care. - Resume regular diet. - Continue present medications. - Await pathology results. - Repeat colonoscopy.
[2023-09-27] MEDS: Folic Acid 1 MG Tablet PO (07:46)
[2023-09-27] MEDS: Acyclovir 200 MG Capsule 400 MG PO (09:29)
[2023-09-27] MEDS: Amox/Clavulanate 875 MG Tablet PO (09:29)
[2023-09-27] MEDS: Carvedilol 12.5 MG Tablet PO (09:29)
[2023-09-27] MEDS: Pantoprazole Sodium 40 MG in 0.9% Normal Saline (100mL MB+) 100 ML 330 MG IV (09:30)
--- NOTE | 2023-09-27 10:52 | CASEMGMT ---
DUGLAS CM into pt room, pt sitting up in bed on her computer. Pt is active with [facility] for SN, she would like this to continue upon dc. She denies need for list of other agencies to choose from. She states she is up I ambulating, denies need for therapy. Pleurex to be drained today is the plan. Pt denies any further homegoing needs. She did not qualify for home oxygen. Update to [facility] via [facility] that plan is for dc today.
[2023-09-27 10:53] LABS: Hemoglobin 10.6 g/dL (12.0-15.0)
[2023-09-27] MEDS: Loperamide 2 MG Capsule PO (12:14)
--- NOTE | 2023-09-27 12:33 | PCM.DC.SUM ---
Providers Date of Admission: 09/23/23 Date of Discharge: 09/27/23 Primary Care Physician: Dr. Vlad Dennis MD Consultations 09/24/23 08:35 Consult: Gastroenterology Routine Consulting Provider: Enrico Ac Reason for Consult: GIB/BRBPR EMERGENT Consult: No Notified: Yes Date Notified: 09/24/23 Time Notified: 08:37 Method of Notification: Text Consult: Vascular Surgery Routine Consulting Provider: Solis Kirk Reason for Consult: consideration for IVC filter EMERGENT Consult: No Notified: Yes Date Notified: 09/24/23 Time Notified: 08:37 Method of Notification: Verbal Reason For Visit: PNEUMONIA WITH HYPOXIA Diagnosis Discharge Diagnosis (1) GI bleeding: Status: Acute Code(s): K92.2 - Gastrointestinal hemorrhage, unspecified (2) Pulmonary embolism: Status: Acute Code(s): I26.99 - Other pulmonary embolism without acute cor pulmonale Qualifiers: Pulmonary embolism type: unspecified Chronicity: acute Acute cor pulmonale presence: without acute cor pulmonale Qualified Code(s): I26.99 - Other pulmonary embolism without acute cor pulmonale (3) Hypoxia: Status: Acute Code(s): R09.02 - Hypoxemia (4) Pneumonia: Status: Acute Code(s): J18.9 - Pneumonia, unspecified organism Medications at Discharge Home Medications multivitamin with folic acid 400 mcg tablet 1 tab PO DAILY SUPPLEMENT 09/16/14 cholecalciferol (vitamin D3) 25 mcg (1,000 unit) tablet 1,000 unit PO DAILY supplement 05/04/19 loperamide 2 mg capsule (Imodium A-D) 2 mg PO Q4H PRN diarhea 08/12/19 tiotropium bromide 18 mcg capsule with inhalation device (Spiriva with HandiHaler) 2 cap inhalation DAILY COPD 02/11/20 Lactobacillus rhamnosus GG 15 billion cell sprinkle capsule (Culturelle) 1 cap PO DAILY probiotic 12/29/20 dicyclomine 20 mg tablet 20 mg PO 4X/DAY COLITIS 12/29/20 valacyclovir 500 mg tablet 500 mg PO DAILY . 05/31/22 albuterol sulfate 90 mcg/actuation aerosol inhaler (Ventolin HFA) 2 puff inhalation Q6H PRN shortness of breath or wheezing 02/22/23 ibuprofen 400 mg tablet 400 mg PO Q6H PRN pain 02/22/23 vitamin E (dl, acetate) 180 mg (400 unit) capsule 180 mg PO DAILY . 02/22/23 osimertinib 80 mg tablet (Tagrisso) 80 mg PO DAILY . 06/18/23 carvedilol 25 mg tablet 12.5 mg PO BID . 07/05/23 dexamethasone 4 mg tablet 4 mg PO .COMPLEX . #40 tabs 09/12/23 folic acid 1 mg tablet 1 mg PO DAILY . #90 tabs 09/12/23 lidocaine-prilocaine 2.5 %-2.5 % topical cream 1 applic topical ONCE PRN port access 30 days #30 grams 09/12/23 ondansetron 8 mg disintegrating tablet 8 mg PO Q8H PRN nausea and vomiting #30 tabs 09/12/23 amoxicillin 875 mg-potassium clavulanate 125 mg tablet 1 tab PO BID #5 tabs 09/27/23 pantoprazole 40 mg tablet,delayed release 40 mg PO DAILY #30 tabs 09/27/23 Hospital Course Operations - (IVC filter placement) Procedures Colonoscopy, EGD and - Summary of Care Provided Hospital Course: Mrs. Caal is a 78-year-old white female who presented to the emergency department at [facility] on 09/23/2023 with worsening shortness of breath. She also complained of feeling weak but denied any fevers or chills or productive cough. She has a history of stage IV non-small cell lung CA that was diagnosed in the right lung in 2014 and she recently restarted chemotherapy for recurrence. Her last chemotherapy was 5 days ago. In the emergency department she had ambulate to the bathroom and upon arriving back she was found to have an oxygen saturation of 68% on room air and was placed on 3 L nasal cannula. The patient is not oxygen dependent at baseline. She recovered slowly was stressed. A CTA of her chest was performed and demonstrated a small interlobar PE in the left lower lobe and a possible pneumonia. She was given coverage for community-acquired pneumonia with Rocephin and azithromycin. Her vital signs other than her ambulatory pulse ox in the emergency department were temperature of 97.5, heart rate 117, respiratory was 26, oxygen saturation was 95% on room air at rest and a blood pressure of 121/72. Her CBC on presentation showed a chronic stable anemia. Coags were unremarkable. Her chemistry panel showed a mild hyponatremia with a sodium of 134 but was otherwise overtly unremarkable. Iron studies were obtained and were consistent with iron deficiency. Given her anemia a stool guaiac was ordered as we were placing her on anticoagulation for her pulmonary embolism. She was placed on Eliquis 10 mg daily but unfortunately the morning after she was admitted she had a bowel movement that was significantly bloody. C. difficile and enteric pathology were negative. Stool lactoferrin was positive. And Hemoccult was positive. Given this the Eliquis was discontinued and we talked to the patient about placing an IVC filter prevention of further DVTs traveling and forming PEs and she was agreeable. Dr. Kirk was consulted and an IVC filter was placed on 09/25/2023. We did obtain a Doppler of her lower extremities and we did find lower extremity DVT in the right soleus vein which is likely the etiology of her pulmonary embolus. GI was consulted and she was placed on Protonix IV twice daily for the bleeding. She was prepped for colonoscopy and EGD and colonoscopy were to be done on 09/25/2023 however emergent cases required bumping her to 09/26/2023 at which time EGD and colonoscopy were performed. EGD demonstrated a normal esophagus with 3 bleeding angiodysplastic lesions in the stomach that were injected and treated with heater probe and the small bowel was normal into the third portion of the duodenum. No biopsies were taken and Protonix 40 mg daily was recommended to continue. Her colonoscopy demonstrated hemorrhoids, rectal prolapse, patchy moderate inflammation in the splenic flexure, hepatic flexure, ascending colon that was felt to be likely related to ischemic colitis. Biopsies were taken here and she was restarted on an oral diet. She tolerated this well and her hemoglobin remained stable. She was able to be weaned to room air and an ambulatory pulse ox was performed on 09/27/2023. Her resting pulse ox was 95% and ambulatory pulse ox was 90%. Given this she did not require supplemental oxygen at discharge. She was maintained on antibiotics but transition to oral antibiotics while she was hospitalized and discharged with 5 more doses of Augmentin to complete a course for possible community-acquired pneumonia. Her Pleurx catheter was drained on the left side prior to discharge. She states that this needs to be removed however she needs to go to [facility] to have this done. She was able to be discharged home in stable condition on 09/27/2023. We have scheduled follow-up for gastroenterology and her primary care physician. I also asked that she follow-up with vascular surgery in the next 3 to 4 weeks and the number was given and she was asked to call and make an appointment on Saturday. She is also to follow-up with oncology as previously scheduled. 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 Ischemic colitis GERD History of colitis Hypertension COPD Stage IV non-small cell lung CA Vitamin D deficiency History of Raynaud's disease History of tobacco abuse Physical Exam Const alert, oriented x3, no apparent distress and average body habitus; Negative for healthy appearing Constitutional Narrative: elderly, white female, walking around the room getting her ambulatory pulse ox tested with nursing at the bedside, patient appears comfortable and nontoxic but chronically ill General Appearance: cooperative, comfortable, well kempt and well developed HEENT normocephalic, head/scalp atraumatic, hearing grossly normal bilaterally, moist oral mucous membranes and oropharynx normal HEENT Narrative: Dentures in place, Mallampati 2, no thrush Eyes PERRL and EOMs intact bilaterally; Negative for conjunctivae normal Eyes Narrative: Pale conjunctiva bilaterally, no scleral icterus Neck no lymphadenopathy and supple Neck Narrative: Trachea midline, no thyroid enlargement Resp normal respiratory effort, no retractions, no use of accessory muscles and clear to auscultation bilaterally Resp Narrative: Diminished but clear Auscultation: Negative for rales, rhonchi or wheezes Cardio regular rate, regular rhythm, S1 normal heart sound, S2 normal heart sound, no murmurs, no rub, no gallops and no clicks GI normal to inspection, nondistended, normoactive bowel sounds, soft to palpation and non-tender Extremity no clubbing, cyanosis or edema Extremity Narrative: Pedal pulses are 2+ Skin no rashes or lesions noted, no wounds, skin turgor normal, no jaundice, no petechiae and no mottling Skin Narrative: Med port right chest with dressing intact and in place, Pleurx catheter and left-sided chest Neuro oriented x3, moves all extremities and no focal motor deficits Speech: speech normal Psych affect normal Psych Narrative: very pleasant, appears fatigued today Weight / BMI Weight Weight: 50.2 kg Body Mass Index (BMI) 20.2 ABG / Lab / Microbiology Data 09/27/23 10:40 09/27/23 06:00 Laboratory: Laboratory Results - last 24 hr 09/27/23 06:00: WBC 3.9 L, RBC 3.21 L, Hgb 8.8 L, Hct 27.8 L, MCV 86.6, MCH 27.4, MCHC 31.7 L, RDW Std Deviation 43.2, RDW Coeff of Hiram 13.7, Plt Count 140 L, MPV 10.6, Sodium 135 L, Potassium 4.1, Chloride 103, Carbon Dioxide 27.0, Anion Gap 5, BUN 31 H, Creatinine 0.96, Estim Creat Clear Calc 38.81, Est GFR (MDRD) Af Amer 73, Est GFR (MDRD) Non-Af 60, BUN/Creatinine Ratio 32.3 H, Glucose 149 H, Calcium 9.1 09/27/23 10:40: Hgb 10.6 L Microbiology: Microbiology 09/27/23 10:05 Stool Clostridioides difficile (PCR) - Final 09/24/23 19:55 Mucosa - Nasopharyngeal Respiratory Panel (PCR) - Final 09/24/23 19:55 Mucosa - Nasopharyngeal Influenza & RSV (PCR) - Final 09/24/23 18:40 Urine, Clean Catch Legionella Antigen - Final 09/24/23 18:40 Urine, Clean Catch Streptococcus pneumoniae Antigen (M - Final 09/24/23 08:08 Stool Stool Occult Blood (ZULEIMA) - Final Occult Blood Positive D/C Instructions Discharge Diet: No restrictions Discharge Activity: Return to Normal Activity (As tolerated) Meaningful Use Info Meaningful Use Diagnoses (Choose all that apply): VTE VTE Anticoag overlap given w/in hospital stay or rx'd at sc?: No Pt receive overlap for 5 days?: No Reason overlap not ordered, prescribed, or given for 5 days: Medical Contraindication Discharge Plan Admission Admit Date/Time: 09/23/23 17:43 Primary Reason for Your Visit: Shortness of Breath Attending Provider: Marixa Aguirre Primary Care Provider: Vlad Dennis Consulting Providers: Lex Payne; Solis Kirk; Enrico Ac Discharge Orders/Prescriptions Prescriptions: New amoxicillin-pot clavulanate 875-125 mg Tablet 1 tab PO BID Qty: 5 0RF Continued loperamide [Imodium A-D] 2 mg capsule 2 mg PO Q4H PRN (Reason: diarhea) Rx Instructions: after each loose stool until symptoms controlled;do not exceed 16 mg total dose in 24 hrs Spiriva with HandiHaler 18 mcg capsule, w/inhalation device 2 cap INHALATION DAILY Rx Instructions: puncture 1 cap using device; one dose = 2 inhalations Culturelle 15 billion cell capsule, sprinkle 1 cap PO DAILY valacyclovir 500 mg tablet 500 mg PO DAILY Patient Comments: TAKE 1 TABLET BY MOUTH THREE TIMES DAILY DIRECTED albuterol sulfate [Ventolin HFA] 90 mcg/actuation HFA aerosol inhaler 2 puff inhalation Q6H PRN (Reason: shortness of breath or wheezing) vitamin E (dl, acetate) 180 mg (400 unit) capsule 180 mg PO DAILY Tagrisso 80 mg tablet 80 mg PO DAILY carvedilol 25 mg tablet 12.5 mg PO BID Rx Instructions: must administer with a meal/food ondansetron 8 mg tablet,disintegrating 8 mg PO Q8H PRN (Reason: nausea and vomiting) Qty: 30 2RF lidocaine-prilocaine 2.5-2.5 % cream 1 applic topical ONCE PRN (Reason: port access) 30 Days Qty: 30 2RF dexamethasone 4 mg tablet 4 mg PO .COMPLEX Qty: 40 0RF Rx Instructions: 4 mg orally twice a day ONLY the day before, the day of, and the day after chemotherapy folic acid 1 mg tablet 1 mg PO DAILY Qty: 90 1RF multivitamin with folic acid 1 TABLET tablet 1 tab PO DAILY Patient Comments: supplement dicyclomine 20 mg tablet 20 mg PO 4X/DAY Patient Comments: abdominal agent cholecalciferol (vitamin D3) 1,000 UNIT tablet 1,000 unit PO DAILY pantoprazole 40 mg tablet,delayed release (DR/EC) 40 mg PO DAILY Qty: 30 4RF Held ibuprofen 400 mg tablet 400 mg PO Q6H PRN (Reason: pain) Hold Instructions: 2 weeks Discontinued esomeprazole magnesium 20 mg capsule,delayed release(DR/EC) 40 mg PO BID Referrals / Follow Up: Solis Kirk MD [Med Staff - Active Staff] - Within 1 Month (Please call on Saturday to set up an appointment to be seen and 1 month for follow-up for your filter placement) Vlad Dennis MD [Primary Care Provider] - 10/11/23 9:20 am Enrico Ac DO [Med Staff - Active Staff] - 10/18/23 8:30 am Disposition Disposition (needs filled in before D/C Order can be placed): Home, Self Care Charges/Coding Visit Charges Inpatient E&M: 73864 Disch Hosp >30min
--- NOTE | 2023-09-27 13:38 | PHA.DC.MC.R ---
Pharmacy [facility] has performed discharge medication reconciliation and counseling for this patient. The patient's discharge medication list was reviewed for discrepancies and discrepancies were resolved. The patient was counseled on the following discharge medications and changes in medications for homegoing were reviewed. The Reason for Use, instructions for use, and potential side effects were reviewed for all new medications. The patient's questions regarding all of their medications were answered. 1. Amoxicillin/clavulanate 875/125 mg PO BID x 5 doses The patient was able to verbally demonstrate an understanding of their discharge medications. Medications at Discharge Home Medications multivitamin with folic acid 400 mcg tablet 1 tab PO DAILY SUPPLEMENT 09/16/14 cholecalciferol (vitamin D3) 25 mcg (1,000 unit) tablet 1,000 unit PO DAILY supplement 05/04/19 loperamide 2 mg capsule (Imodium A-D) 2 mg PO Q4H PRN diarhea 08/12/19 tiotropium bromide 18 mcg capsule with inhalation device (Spiriva with HandiHaler) 2 cap inhalation DAILY COPD 02/11/20 Lactobacillus rhamnosus GG 15 billion cell sprinkle capsule (Culturelle) 1 cap PO DAILY probiotic 12/29/20 dicyclomine 20 mg tablet 20 mg PO 4X/DAY COLITIS 12/29/20 valacyclovir 500 mg tablet 500 mg PO DAILY . 05/31/22 albuterol sulfate 90 mcg/actuation aerosol inhaler (Ventolin HFA) 2 puff inhalation Q6H PRN shortness of breath or wheezing 02/22/23 ibuprofen 400 mg tablet 400 mg PO Q6H PRN pain 02/22/23 vitamin E (dl, acetate) 180 mg (400 unit) capsule 180 mg PO DAILY . 02/22/23 osimertinib 80 mg tablet (Tagrisso) 80 mg PO DAILY . 06/18/23 carvedilol 25 mg tablet 12.5 mg PO BID . 07/05/23 dexamethasone 4 mg tablet 4 mg PO .COMPLEX . #40 tabs 09/12/23 folic acid 1 mg tablet 1 mg PO DAILY . #90 tabs 09/12/23 lidocaine-prilocaine 2.5 %-2.5 % topical cream 1 applic topical ONCE PRN port access 30 days #30 grams 09/12/23 ondansetron 8 mg disintegrating tablet 8 mg PO Q8H PRN nausea and vomiting #30 tabs 09/12/23 amoxicillin 875 mg-potassium clavulanate 125 mg tablet 1 tab PO BID #5 tabs 09/27/23 pantoprazole 40 mg tablet,delayed release 40 mg PO DAILY #30 tabs 09/27/23
--- NOTE | 2023-09-27 13:39 | PCM.OP.PRO ---
Procedure Report Date of Procedure: 09/27/23 Assessment & Plan Assessment/Plan (1) Pleural effusion, left: PLAN: Patient presented with existing Pleurx catheter in the left pleural space. Using clean gloves, the existing dressing was removed. A sterile Pleurx drainage kit was opened. Sterile gloves were donned. With the assistance of DUGLAS Patterson, the Pleurx pressurized drainage canister was connected to the patient's Pleurx catheter. Approximately, 10 mL of clear yellow fluid was drained. The patient tolerated well. The drainage catheter was clamped, prior to disconnecting from the Pleurx catheter. A new sterile cap was applied to the Pleurx catheter. The skin was prepped with skin protectant the provided dressing was applied which included a split foam dressing, split 4 x 4 gauze, and sterile occlusive dressing.
[2023-09-27] MEDS: 0.9 % NaCl (Sterile) Posiflush 10 mL IV (14:49)
[2023-09-27 15:19] LABS: Pathologist Review Reviewed
== END 2023-09-27 15:45 | disposition home or self-care (01) | DRG 175 ==
LOC: ED 16:59 → MS3 17:59
PROVIDERS: Internal Medicine Gastroenterology; Admitting Provider Family Medicine; Emergency Provider Emergency Medicine; PCP Family Medicine; Visit Provider Internal Medicine
PROC: 0DJD8ZZ Inspection of Lower Intestinal Tract, Via Natural or Artificial Opening Endoscopic (ICD-10-PCS; CPT 45378; principal; 2023-09-26 08:25)
DX: I26.99 Other pulmonary embolism without acute cor pulmonale (principal); J18.9 Pneumonia, unspecified organism; K31.811 Angiodysplasia of stomach and duodenum with bleeding; K55.9 Vascular disorder of intestine, unspecified; J44.0 Chronic obstructive pulmonary disease with (acute) lower respiratory infection; C34.12 Malignant neoplasm of upper lobe, left bronchus or lung; C34.32 Malignant neoplasm of lower lobe, left bronchus or lung; K51.90 Ulcerative colitis, unspecified, without complications; I82.461 Acute embolism and thrombosis of right calf muscular vein; I10 Essential (primary) hypertension; D50.9 Iron deficiency anemia, unspecified; K21.9 Gastro-esophageal reflux disease without esophagitis; E55.9 Vitamin D deficiency, unspecified; K62.3 Rectal prolapse; K64.8 Other hemorrhoids; I73.00 Raynaud's syndrome without gangrene; D63.0 Anemia in neoplastic disease; R09.02 Hypoxemia; R00.0 Tachycardia, unspecified; Z66 Do not resuscitate; Z79.51 Long term (current) use of inhaled steroids; Z79.899 Other long term (current) drug therapy; Z87.891 Personal history of nicotine dependence
CPT/HCPCS: 36415; 36591; 37191; 71275; 76937; 80048; 80053; 82274; 82728; 83540; 83550; 83735; 84100; 84443; 84484; 85018; 85025; 85027; 85610; 85730; 87449; 87493; 87631; 87633; 88305; 93005; 93970; 99152; 99153; 99285; C1769; C1880; C1894; J7030; J7040; J7050; J7120; Q9967; A4216; J2405

== ENCOUNTER → 2023-10-18 | Outpatient (CLI) | payer MEDICARE, OTHER, SELFPAY ==
--- NOTE | 2023-10-18 09:10 | RAD_ITS ---
STUDY: XR Chest 2 Views 10/18/2023 9:12 AM REASON FOR EXAM: Female, 78 years old. shortness of breath COMPARISON: 09/17/2023 TECHNIQUE: XR Chest 2 Views FINDINGS: Lung [place] are hyperexpanded. Left chest tube in place. Right ported catheter. Stable left apical scarring or mass. Stable area of right hilar infiltrate or mass. Left pleural effusion. No pneumothorax. Normal heart size. Normal mediastinum. Normal aleja. Prominent appearing increased interstitial lung markings. Normal visualized pulmonary arteries. There is atherosclerotic calcification of the aortic arch with tortuosity. There are diffuse degenerative changes of the visualized thoracic spine. There is degenerative osteoarthritis of the bilateral shoulders. There are no acute findings of the upper abdomen. RAD/Chest PA and Lateral IMPRESSION: There has been no change in the appearance of the chest since the prior study. Electronically Signed: Junior Mcwilliams MD at 15:03 EDT ,
[2023-10-18 11:06] LABS: Erythrocyte Sedimentation Rate 3 mm/hr (0-30)
[2023-10-18 11:08] LABS: Absolute Lymphocyte Count 0.33 X10^3/uL (0.83-4.51); Absolute Neutrophil Count 0.7 X10^3/uL (2.0-7.7); Basophil# 0.01 X10^3/uL; Basophil% 0.9 % (0-1); Hematocrit 32.2 % (37-47); Hemoglobin 9.8 g/dL (12.0-15.0); Lymphocyte # 0.33 X10^3/ul (0.83-4.51); Lymphocyte % 29.7 % (19-41); Mean Corp Hgb Conc 30.4 g/dL (32-36); Mean Corpuscular Hgb 27.2 pg (27.0-32.0); Mean Corpuscular Volume 89.4 fL (81-99); Mean Platelet Vol. 10.6 fl (6.2-12.0); Monocyte# 0.06 X10^3/uL; Monocyte% 5.4 % (0-10); NRBC Flagged by Analyzer 0 % (0-5); Neutrophil # 0.68 X10^3/uL (2.7-7.7); Neutrophil % 61.3 % (47-70); POSITIVE COUNT YES; POSITIVE DIFFERENTIAL YES; POSITIVE MORPHOLOGY YES; Platelet Count 91 K/mm3 (150-450); RBC Distribution Width CV 16.2 % (11.6-14.6); RBC Distribution Width SD 52.3 fl (35.1-43.9)
[2023-10-18 11:18] LABS: Differential Indicated SCAN CRITERIA MET; White Blood Count 1.1 K/mm3 (4.4-11.0)
[2023-10-18 11:29] LABS: ALB/GLOB Ratio 0.9 RATIO (0.9-2.4); AST(SGOT) 20 U/L (15-37); Alanine Aminotransfer ALT/SGPT 17 U/L (13-56); Albumin, Serum 2.7 g/dL (3.2-5.0); Alkaline Phosphatase 64 U/L (45-117); Anion Gap 7 (5-15); BUN 43 mg/dL (7-18); BUN/Creat Ratio 27.4 RATIO (10-20); Calcium,Total 8.8 mg/dL (8.5-10.1); Chloride 113 mmol/L (98-107); Creatinine, Serum 1.57 mg/dL (0.55-1.02); EST Glomerular Filtration Rate 34 mL/min (>60); Est Glom Filt Rate - Afr Amer 41 mL/min (>60); Ferritin 536 ng/mL (8-252); Globulin 3.1 g/dL (2.2-4.2); Glucose 140 mg/dL (74-106); Iron 93 ug/dL (50-170); Iron Binding Capacity,Total 194 ug/dL (250-450); LDH 213 U/L (84-246); PERCENT IRON SATURATION 47.9 % (15.0-55.0); Phosphorus 2.6 mg/dL (2.5-4.9); Potassium 3.8 mmol/L (3.5-5.1); Protein, Total 5.8 g/dL (6.4-8.2); Sodium Level 144 mmol/L (136-145)
[2023-10-18 13:02] LABS: Platelet Estimate MOD DEC (ADEQ)
[2023-10-22 08:50] LABS: Pathologist Review Reviewed
== END | disposition home or self-care (01) ==
PROVIDERS: Internal Medicine Medical Oncology; PCP Family Medicine; Referring Provider Internal Medicine Gastroenterology; Visit Provider Internal Medicine Gastroenterology
DX: R06.02 Shortness of breath (principal); C34.90 Malignant neoplasm of unspecified part of unspecified bronchus or lung; R07.9 Chest pain, unspecified; K31.9 Disease of stomach and duodenum, unspecified; Z79.899 Other long term (current) drug therapy
CPT/HCPCS: 36415; 71046; 80053; 82728; 83540; 83550; 83615; 83735; 84100; 85025; 85652; 86140

== ENCOUNTER → 2023-11-06 | Outpatient (CLI) | payer MEDICARE, OTHER, SELFPAY ==
--- NOTE | 2023-11-06 14:16 | CT_ITS ---
STUDY: CT CHEST WITH CONTRAST REASON FOR EXAM: Female, 78 years old. LUNG CA/PNEUMONITIS RADIATION DOSAGE (If Supplied By Facility): CTDIvol = ( 7.35 ) mGy, DLP = ( 188.38 ) mGycm TECHNIQUE: Transaxial imaging was performed following intravenous administration of ml of 100mL Isovue-300 contrast material. Individualized dose optimization techniques were used for this CT. COMPARISON: CTA of the chest dated September 23, 2023. August 29, 2023. March 15, 2023. May 28, 2022 FINDINGS: Thoracic inlet: Unremarkable Esophagus: Unremarkable Trachea and mainstem bronchi: Patent without evidence of a mass or mucus impaction. * Redemonstration of spiculated fibrosis with underlying bronchiectasis in the apex of the left upper lobe with linear attachments to the underlying pleura measuring 4.51 x 2.37 cm in diameter which is slightly increased from the 2021 study but not from the prior 2023 study. * Chronic consolidation, fibrosis, bronchiectasis, and perihilar soft tissue thickening in the medial aspects of the superior segment of the right lower lobe and right upper lobe is unchanged in involvement since the prior exam. * Previously seen moderate focus of loculated pleural fluid is no longer present/has resolved. * Recently/previously medial consolidation in the left upper lobe as well as multiple precarinal and left hilar mediastinal lymphadenopathy is no longer present. * Previously seen nodular focus of consolidation in the lateral aspect of the interlobar fissure between the left upper and lower lobes on image 59/136 series 2 has nearly completely resolved with the exception of a small focus of interstitial thickening remaining. * Previously seen moderate left lower lobe atelectasis has resolved with a small focus of chronic atelectasis and scarring remaining in the posterior aspect of the lung * The left pleural effusion is small in volume but decreased from the prior study * Redemonstration of spiculated fibrotic nodule in the anterior medial aspect of the left upper lobe measuring 8.3 mm in diameter. * Precarinal abnormal soft tissue density persists * Moderate diffuse cystic emphysematous changes and interstitial lung disease/scarring * No change in fine tree-in-bud nodularity and small islands in the right upper lobe. * No new nodules or areas of consolidation are present in the right lung. Normal heart and pericardium. There are calcifications of the coronary arteries. Normal mediastinum. Normal hilar regions. Normal enhanced pulmonary arteries. There is atherosclerotic calcification of the aortic arch with tortuosity and elongation of the aortic arch and descending thoracic aorta. There are multi-level degenerative changes of the thoracic spine. There is no demonstrated abnormality of the visualized upper abdomen. CT/Chest WITH Contrast IMPRESSION: 1. Previously seen multifocal consolidation and bulky left hilar lymphadenopathy has resolved 2. Spiculated lesions of the left upper lobe apex and medial hilar region of the right lung persists. Several tiny densities as described above. These should be correlated with PET/CT imaging to determine if there is any viable or malignant neoplasm in these regions. Electronically Signed: Dustin Jennings MD at 10:12 EDT ,
[2023-11-06] MEDS: 0.9 % NaCl (Sterile) Posiflush 10 mL IV (14:35)
[2023-11-06] MEDS: 0.9% Saline Lock 10 ML Syringe IV (14:45)
== END | disposition home or self-care (01) ==
PROVIDERS: PCP Family Medicine; Referring Provider Internal Medicine Medical Oncology; Visit Provider Internal Medicine Medical Oncology
DX: C34.92 Malignant neoplasm of unspecified part of left bronchus or lung (principal)
CPT/HCPCS: 71260; Q9967; A4216

== ENCOUNTER → 2023-11-13 | Outpatient (CLI) | payer MEDICARE, OTHER, SELFPAY ==
--- NOTE | 2023-11-13 08:53 | VDLE_ITS ---
Reason For Study: BLE Swelling RIGHT LEFT GSV is normal. GSV is normal. CFV is compressible, spontaneous, phasic, CFV is compressible, spontaneous, phasic, competent and demonstrates normal competent, and demonstrates normal augmentation. augmentation. FV is compressible, spontaneous, phasic, FV is compressible, spontaneous, phasic, competent and demonstrates normal competent and demonstrates normal augmentation. augmentation. POP V is compressible, spontaneous, and POP V is compressible, spontaneous, and phasic. phasic. T/P Trunk is compressible. T/P Trunk is compressible. PTV is compressible. PTV is compressible. RT PerV is compressible. LT PerV is compressible. Acute deep vein thrombosis is noted in the Acute deep vein thrombosis is noted in the Soleal V. It is dilated and NONCOMPRESSIBLE. Soleal V. It is dilated and NONCOMPRESSIBLE. Procedure This is a venous duplex using B-mode, color flow and spectral Doppler. Exam performed in department. The exam was diagnostic. A preliminary report was called and/or faxed to [facility] VL/Venous Duplex US - Rusty Extrem Interpretation Summary Acute deep vein thrombosis is noted in the right soleus vein. Acute deep vein thrombosis is noted in the left soleus vein. Ordering Physician: [facility] Referring Physician: Vlad Dennis Performed By: Thaddeus Palumbo RVT
== END | disposition home or self-care (01) ==
PROVIDERS: PCP Family Medicine; Referring Provider Physician Assistant; Visit Provider Physician Assistant
DX: M79.89 Other specified soft tissue disorders (principal); Z95.828 Presence of other vascular implants and grafts
CPT/HCPCS: 93970

== ENCOUNTER 2023-11-27 06:48 | Inpatient (IN) | payer MEDICARE, OTHER, SELFPAY ==
[2023-11-27] VITALS (28 sets, daily range): BP systolic 121–147; BP diastolic 74–102; PULSE 92–125; RESP 12–26; TEMP 36.3–37.1; O2SAT 94–100; BMI 19.7; BMI 18.8
--- NOTE | 2023-11-27 06:53 | EKG12_ITS ---
Test Reason : SPB Blood Pressure : / mmHG Vent. Rate : 111 BPM Atrial Rate : 111 BPM P-R Int : 118 ms QRS Dur : 078 ms QT Int : 340 ms P-R-T Axes : 022 063 051 degrees QTc Int : 462 ms Sinus tachycardia with occasional Premature ventricular complexes Otherwise normal ECG Confirmed by Paul Barr ([id number]), etcher apprentice ZENOBIA JAVED ([id number]) on 12/02/2023 9:10:22 AM Referred By: RAJ Confirmed By:Paul Barr
[2023-11-27] MEDS: Albuterol 2.5 MG/3 ML VIAL.NEB. INHALATION ×5 (07:04→18:34)
--- NOTE | 2023-11-27 07:04 | ED.VIS.DYS ---
HPI History of Present Illness Chief Complaint: Shortness of Breath [facility] Medical History Alcohol use Anxiety Bilateral pulmonary embolism (11/06/14) Cancer Cardiology follow-up encounter Colitis COPD (chronic obstructive pulmonary disease) DVT (deep venous thrombosis) Dyspepsia and disorder of function of stomach Encounter for education Encounter for monitoring cardiotoxic drug therapy Encounter for vitamin B12 injection while on pemetrexed chemotherapy Essential hypertension Exertional dyspnea Exertional dyspnea Former smoker Gastric reflux Headache Hepatitis A History of echocardiogram History of hepatitis A virus infection History of pulmonary embolus (PE) History of stress test History of tachycardia HTN (hypertension) Hydronephrosis with ureteral calculus Hypokalemia Lung cancer Lung mass Non-small cell lung cancer (NSCLC) NSCLC of left lung Pulmonary embolism Raynauds disease Shortness of breath on exertion Skin cancer Ulcerative colitis Vision changes Wears dentures Wears glasses Weight loss Home Medications ?Medication ?Instructions ?Recorded ?Last Taken ?Type multivitamin with folic acid 400 1 tab PO DAILY SUPPLEMENT 09/16/14 09/22/23 History mcg tablet cholecalciferol (vitamin D3) 25 1,000 unit PO DAILY supplement 05/04/19 09/23/23 History mcg (1,000 unit) tablet loperamide 2 mg capsule (Imodium 2 mg PO Q4H PRN diarhea 08/12/19 Unknown History A-D) tiotropium bromide 18 mcg capsule 2 cap inhalation DAILY COPD 02/11/20 09/17/23 History with inhalation device (Spiriva with HandiHaler) Lactobacillus rhamnosus GG 15 1 cap PO DAILY probiotic 12/29/20 09/23/23 History billion cell sprinkle capsule (Culturelle) valacyclovir 500 mg tablet 500 mg PO DAILY . 05/31/22 09/23/23 History ibuprofen 400 mg tablet 400 mg PO Q6H PRN pain 02/22/23 Unknown History vitamin E (dl, acetate) 180 mg 180 mg PO DAILY . 02/22/23 09/22/23 History (400 unit) capsule osimertinib 80 mg tablet (Tagrisso) 80 mg PO DAILY . 06/18/23 09/22/23 History carvedilol 25 mg tablet 12.5 mg PO BID . 07/05/23 09/23/23 History dexamethasone 4 mg tablet 4 mg PO .COMPLEX . #40 tabs 09/12/23 09/20/23 Rx folic acid 1 mg tablet 1 mg PO DAILY . #90 tabs 09/12/23 09/23/23 Rx lidocaine-prilocaine 2.5 %-2.5 % 1 applic topical ONCE PRN port 09/12/23 Unknown Rx topical cream access 30 days #30 grams ondansetron 8 mg disintegrating 8 mg PO Q8H PRN nausea and 09/12/23 Unknown Rx tablet vomiting #30 tabs pantoprazole 40 mg tablet,delayed 40 mg PO DAILY #30 tabs 09/27/23 Unknown Rx release colestipol 1 gram tablet 2 g (2 x 1 gram) PO BID 30 days 10/14/23 Unknown Rx #120 tabs albuterol sulfate 90 mcg/actuation 2 puff inhalation Q6H PRN 10/18/23 Unknown Rx aerosol inhaler (Ventolin HFA) shortness of breath or wheezing #6.7 grams Allergy/AdvReac Type Severity Reaction Status Date / Time adhesive tape Allergy Itching Verified 11/21/23 09:28 ipratropium (From Atrovent) Allergy Rash Verified 11/21/23 09:28 terbinafine HCl (From Allergy Rash Verified 11/21/23 09:28 Lamisil) lactose AdvReac Upset Verified 11/21/23 09:28 Stomach Family History Father Liver disease Mother Uterine cancer Brother Myocardial infarction, Onset Age: 60 Surgical History EBUS guided biopsy H/O hernia repair History of appendectomy History of bronchoscopy History of colonoscopy History of hysterectomy History of thoracentesis History of tonsillectomy Hx of cholecystectomy Malignant pleural effusion (02/07/23) ulnar nerve release left elbow Social History Smoking Status: Former smoker Tobacco: How many years used: 40 second hand exposure: No alcohol intake: never details: occasionally substance use type: does not use EXAM Physical Exam Const Vital Signs: 11/27/23 06:49 11/27/23 06:53 11/27/23 06:57 Temperature 98.2 F 97.8 F Temperature Source Oral Oral Pulse Rate 109 H 114 H Respiratory Rate 23 H 24 H Respiratory Effort Respiratory Depth Respiratory Pattern Blood Pressure 124/102 H 144/86 H Blood Pressure Mean 109 105 Pulse Ox 99 99 99 Oxygen Delivery Method Nasal Cannula Nasal Cannula Nasal Cannula Oxygen Flow Rate (L/min) 2 2 2 Fraction of Inspired Oxygen (FIO2) 11/27/23 06:59 11/27/23 07:04 11/27/23 07:04 Temperature Temperature Source Pulse Rate 113 H Respiratory Rate 24 H Respiratory Effort Short of Breath Accessory Muscle Use Respiratory Depth Shallow Respiratory Pattern Tachypnea Tachypnea Blood Pressure Blood Pressure Mean Pulse Ox 100 Oxygen Delivery Method Room Air Nasal Cannula Oxygen Flow Rate (L/min) 2 Fraction of Inspired Oxygen (FIO2) 11/27/23 07:37 11/27/23 09:04 Temperature Temperature Source Pulse Rate 115 H 109 H Respiratory Rate 23 H 21 H Respiratory Effort Respiratory Depth Respiratory Pattern Tachypnea Normal Blood Pressure Blood Pressure Mean Pulse Ox 100 100 Oxygen Delivery Method Oxygen Flow Rate (L/min) Fraction of Inspired Oxygen (FIO2) 30 30 MDM MDM MDM Narrative Medical decision making narrative: HISTORY OF PRESENT ILLNESS: 78 F here with SOB. Notes SOB that began at 0200. She notes she does not smoke. Notes cough productive of white sputum. Denies fever. Denies chest pain. Denies leg swelling. Notes history of PE but denies being on anticoagulation. Denies leg swelling. Denies vomiting. Denies dark stools or blood in her stool. REVIEW OF SYSTEMS: Pertinent positives: Shortness of breath Pertinent negatives: Chest pain, melena, hematochezia, leg swelling PHYSICAL EXAM: Nursing triage notes reviewed, Vital signs reviewed Constitutional: please see mdm HENT: MMM Eyes: Pupils equal round and reactive to light, Extraocular muscles intact Neck: No stridor, no JVD, full neck ROM Lungs: mild increased work of breathing diminished breath sounds throughout, bilateral expiratory wheezing, slight tachypnea noted, Heart: Regular rate and rhythm, No murmurs, No rubs and No gallops, 2+ distal pulses (radial, femoral, posterior tibial) in all extremities Abdomen: Soft, there is no tenderness, rigidity, rebound or guarding, no obvious peritoneal signs, no palpable pulsatile abdominal masses, no auscultated abdominal bruit : No CVAT Extremities: No edema Neuro: No focal neurological deficits, cranial nerves II through XII intact, 5/5 strength in all extremities. Intact sensation to light touch in all extremities, 2+ reflexes bilateral patella tendons. Normal gait. No ataxia. Skin: No rash or lesions noted MEDICAL DECISION MAKING: Chief Complaint: Shortness of breath External records reviewed: Imaging reviewed: CT scan of the chest from October 2023 approximately 3 weeks ago shows multifocal consolidation left hide lymphadenopathy had resolved, noted lesions in left upper lobe and hilar region. Last admitted in September 2023 for GI bleed, pneumonia hypoxia, PE. IVC filter was placed on 09/25/2023 Factors affecting care: Lung cancer, pleural effusion, PE, COPD Social determinants of health: n former smoker History obtained from others: none Consults: Internal medicine MDM Narrative: Patient is initially tachycardic, tachypneic otherwise afebrile was saturating well on room air. Exam with mild increased work of breathing, bilateral wheezing, no obvious rales. No lower extremity edema. No signs of volume overload. Initially started on breathing treatments. Patient continued to decompensate and required I considered the following differential diagnosis: COPD exacerbation, pneumonia, anemia, electrolyte disturbance, arrhythmia, ACS, PE, pleural effusion, worsening metastatic burden ALL IMAGES (IF OBTAINED) HAVE BEEN PERSONALLY REVIEWED AND INTERPRETED BY MYSELF. EKG with sinus tachycardia, normal axis, normal intervals, no STEMI CBC without leukocytosis, noted severe anemia, no thrombocytopenia VBG with no evidence of CO2 retention BMP with mild hyponatremia otherwise no significant electrolyte disturbances, no acute kidney injury High-sensitivity troponin is negative, no evidence of myocardial ischemia Chest x-ray was read reviewed myself shows no obvious new changes from prior x-ray 1 month ago. While I considered pulmonary embolism as a potential precipitant. Patient already been diagnosed with PE but has a absent convocation to anticoagulation in the setting of severe anemia. Given result of CTA would not change lead I did not go through the CTA. The emergency department. The synthesis of the patient's history physical exam, labs images suggest likely multifactorial causes of shortness of breath and respiratory failure including COPD exacerbation, severe anemia, lung cancer. Goals of care discussion was undertaken with the patient she reiterated her desire to be DNR CCA, DNI Her wishes were respected. She admitted to PCU per Dr. Escalante's recommendation. The patient and/or family, caregivers express understanding. The patient and/or family, caregivers agrees with the plan. Shared decision making: I will have a discussion with the patient and or visitors regarding risk/benefits of further testing or admission. They will be made aware of of the risk/benefits inherent in this decision they will be given the opportunity to voice understanding. Total critical care time today provided was at least 35minutes. This excludes separately billable procedures. Critical care time (if documented) is secondary to the patient having high probability of clinically significant/life threatening deterioration in the patient's condition which required my urgent intervention. Impression: 1. Dyspnea 2. Acute COPD exacerbation 3. Acute respiratory failure 4. Severe anemia 5. History of lung cancer Dispo: Admit This note was generated with [employer] dictation software. It may contain incorrect words, spelling, and punctuation that were not noted in review of the chart prior to signing. Lab Data Labs: Laboratory Results - last 24 hr 11/27/23 07:50 WBC 3.3 L RBC 2.18 L Hgb 6.5 L Hct 20.8 L MCV 95.4 MCH 29.8 MCHC 31.3 L RDW Std Deviation 76.4 H RDW Coeff of Hiram 22.5 H Plt Count 275 MPV 10.2 Immature Gran % (Auto) 0.600 Neut % (Auto) 88.3 H Lymph % (Auto) 8.7 L Payette % (Auto) 2.1 Eos % (Auto) 0.0 Baso % (Auto) 0.3 Absolute Neuts (auto) 2.9 Absolute Lymphs (auto) 0.29 L Nucleated RBC % 0 Differential Comment COMMENT Anisocytosis 1+ Sodium 134 L Potassium 4.3 Chloride 103 Carbon Dioxide 28.0 Anion Gap 3 L BUN 16 Creatinine 0.91 Estim Creat Clear Calc 39.97 Est GFR (MDRD) Af Amer 77 Est GFR (MDRD) Non-Af 64 BUN/Creatinine Ratio 17.6 Glucose 100 Calcium 8.4 L Troponin I High Sens 6 B-Natriuretic Peptide 467.5 H ABG Data ABG results: ABG 11/27/23 07:49 Specimen Type JOE Sample Site Not entered O2 % 30.0 VBG pH 7.38 VBG pO2 37 VBG HCO3 25 VBG Total CO2 26 VBG O2 Sat (Calc) 69 VBG Base Excess 0 POC Mix VBG pCO2 Pt Tmp 41.6 Respiration Rate 12 O2 Delivery Device BiPAP POC PEEP 8 Radiography Diagnostic Testing: Clinical Impression(s) from Imaging Studies Chest X-Ray 11/27/23 08:04 IMPRESSION: Stable examination. No acute abnormality is seen. Electronically Signed: Kingsley Clements MD at 8:31 EDT , Discharge Plan Triage Chief Complaint: Shortness of Breath ED Provider: Kalpesh Dong Dx/Rx/DC Orders Prescriptions: No Action loperamide [Imodium A-D] 2 mg capsule 2 mg PO Q4H PRN (Reason: diarhea) Rx Instructions: after each loose stool until symptoms controlled;do not exceed 16 mg total dose in 24 hrs Spiriva with HandiHaler 18 mcg capsule, w/inhalation device 2 cap INHALATION DAILY Rx Instructions: puncture 1 cap using device; one dose = 2 inhalations Culturelle 15 billion cell capsule, sprinkle 1 cap PO DAILY valacyclovir 500 mg tablet 500 mg PO DAILY Patient Comments: TAKE 1 TABLET BY MOUTH THREE TIMES DAILY DIRECTED ibuprofen 400 mg tablet 400 mg PO Q6H PRN (Reason: pain) vitamin E (dl, acetate) 180 mg (400 unit) capsule 180 mg PO DAILY Tagrisso 80 mg tablet 80 mg PO DAILY carvedilol 25 mg tablet 12.5 mg PO BID Rx Instructions: must administer with a meal/food ondansetron 8 mg tablet,disintegrating 8 mg PO Q8H PRN (Reason: nausea and vomiting) Qty: 30 2RF lidocaine-prilocaine 2.5-2.5 % cream 1 applic topical ONCE PRN (Reason: port access) 30 Days Qty: 30 2RF dexamethasone 4 mg tablet 4 mg PO .COMPLEX Qty: 40 0RF Rx Instructions: 4 mg orally twice a day ONLY the day before, the day of, and the day after chemotherapy folic acid 1 mg tablet 1 mg PO DAILY Qty: 90 1RF albuterol sulfate [Ventolin HFA] 90 mcg/actuation HFA aerosol inhaler 2 puff inhalation Q6H PRN (Reason: shortness of breath or wheezing) Qty: 6.7 0RF multivitamin with folic acid 1 TABLET tablet 1 tab PO DAILY Patient Comments: supplement cholecalciferol (vitamin D3) 1,000 UNIT tablet 1,000 unit PO DAILY pantoprazole 40 mg tablet,delayed release (DR/EC) 40 mg PO DAILY Qty: 30 4RF colestipol 1 gram tablet 2 g PO BID 30 Days Qty: 120 2RF Primary Care Provider: Vlad Dennis Referrals: Vlad Dennis MD [Primary Care Provider] - Print Language: Hong Konger
[2023-11-27 07:52] LABS: Blood Gas Specimen Type VEN; O2 Delivery Device BiPAP; PEEP 8; RR 12; SITE Not entered; VBG BASE EXCESS 0 mmol/L (-1.0-3.5); VBG Bicarbonate 25 mmol/L (22-26); VBG PO2 37 mmHg (25-40); VBG SO2 69 % (50-70); VBG TCO2 26 mmol/L (23-33); VBG pCO2 41.6 mmHg (41-51); VBG pH 7.38 (7.32-7.42)
[2023-11-27 07:59] LABS: Absolute Lymphocyte Count 0.29 X10^3/uL (0.83-4.51); Absolute Neutrophil Count 2.9 X10^3/uL (2.0-7.7); Basophil# 0.01 X10^3/uL; Basophil% 0.3 % (0-1); Hematocrit 20.8 % (37-47); Hemoglobin 6.5 g/dL (12.0-15.0); Lymphocyte # 0.29 X10^3/ul (0.83-4.51); Lymphocyte % 8.7 % (19-41); Mean Corp Hgb Conc 31.3 g/dL (32-36); Mean Corpuscular Hgb 29.8 pg (27.0-32.0); Mean Corpuscular Volume 95.4 fL (81-99); Mean Platelet Vol. 10.2 fl (6.2-12.0); Monocyte# 0.07 X10^3/uL; Monocyte% 2.1 % (0-10); NRBC Flagged by Analyzer 0 % (0-5); Neutrophil # 2.93 X10^3/uL (2.7-7.7); Neutrophil % 88.3 % (47-70); POSITIVE DIFFERENTIAL YES; POSITIVE MORPHOLOGY YES; Platelet Count 275 K/mm3 (150-450); RBC Distribution Width CV 22.5 % (11.6-14.6); RBC Distribution Width SD 76.4 fl (35.1-43.9); Red Blood Count 2.18 M/mm3 (4.2-5.4); White Blood Count 3.3 K/mm3 (4.4-11.0)
[2023-11-27 08:00] LABS: Differential Indicated SCAN CRITERIA MET
--- NOTE | 2023-11-27 08:04 | RAD_ITS ---
STUDY: X-RAY CHEST REASON FOR EXAM: Female, 78 years old. Shortness of breath. History of COPD and lung carcinoma. TECHNIQUE: Single AP portable view of the chest. COMPARISON: Comparison is made with prior study dated October 18, 2023. FINDINGS: A right-sided portacatheter is seen with the tip at the junction of the superior vena cava and right atrium. There is hyperinflation of the lungs consistent with chronic obstructive lung disease (COPD). Stable scarring in the right suprahilar region with volume loss. This is unchanged. This is in keeping with prior radiation and post radiation fibrosis. Stable increased markings in the left lung apex. This is suggestive of scarring. Stable blunting of the left costophrenic angle. Normal size heart. Normal mediastinum and aleja. Normal visualized pulmonary arteries. There is atherosclerotic calcification of the aortic arch with tortuosity. Normal visualized thoracic spine. Normal visualized ribs, clavicles, and shoulders. There is no demonstrated abnormality of the visualized soft tissue structures of the upper abdomen. RAD/Chest 1 View (Portable) IMPRESSION: Stable examination. No acute abnormality is seen. Electronically Signed: Kingsley Clements MD at 8:31 EDT ,
[2023-11-27] MEDS: MethylPREDNISolone 125 MG/2 ML Vial IV (08:08)
[2023-11-27 08:15] LABS: Anion Gap 3 (5-15); BUN 16 mg/dL (7-18); BUN/Creat Ratio 17.6 RATIO (10-20); Calcium,Total 8.4 mg/dL (8.5-10.1); Chloride 103 mmol/L (98-107); Creatinine, Serum 0.91 mg/dL (0.55-1.02); EST Glomerular Filtration Rate 64 mL/min (>60); Est Glom Filt Rate - Afr Amer 77 mL/min (>60); Estimated Creatinine Clearance 39.97 ml/min; Glucose 100 mg/dL (74-106); Potassium 4.3 mmol/L (3.5-5.1); Sodium Level 134 mmol/L (136-145); Troponin-I HS 6 pg/mL (3.0-54.0)
[2023-11-27 08:32] LABS: Anisocytosis 1+
[2023-11-27 08:42] LABS: BNP,B-Type NATRIURETIC PEPTIDE 467.5 pg/mL (0-100)
--- NOTE | 2023-11-27 12:41 | NURSING ---
1230 consent for blood gone over and given to pt and family with no questions voiced. 1st unit prbc's up and running.
[2023-11-27] MEDS: 0.9% Normal Saline (1000mL) 1,000 ML 75 ML IV (15:23)
[2023-11-27] MEDS: 0.9% Saline Lock 10 ML Syringe IV (17:20)
--- NOTE | 2023-11-27 18:08 | PCM.HP.STD ---
HPI - General General Date of Admission: 11/27/23 Date of Service: 11/27/23 Chief Complaint: Shortness of breath HPI Narrative GEE LAURA, is a 78 F who presents to the emergency room at [facility] with complaints of shortness of breath and this began early this morning approximately 2 AM. Patient has a history of lung cancer and is currently active with oncology. She is on home O2. Workup in the emergency room included labs which showed a white blood cell count of 3.3, hemoglobin was 6.5, platelet count was 275,000. Patient's chemistry profile was unremarkable, patient's beta natruretic peptide was elevated at 467.5. Chest x-ray was obtained on the patient which showed no evidence of CHF or active infiltrate. There was evidence of some scarring of various areas of the lung but this was not new. Patient was placed on BiPAP due to respiratory distress, she will be admitted to PCU and treated for exacerbation of COPD, and her anemia will be addressed by giving her a blood transfusion. I do not feel the patient has a presentation suggestive of CHF at this time even though her beta natruretic peptide is elevated. I will however give her a dose of Lasix between units of blood today. I will obtain a limited echocardiogram on the patient tomorrow to check her EF. Patient is a DNR CC arrest with no intubation. [facility] Medical History DVT (deep venous thrombosis) HTN (hypertension) Vision changes Shortness of breath Hypokalemia Weight loss Pulmonary embolism Pneumonia Immunotherapy encounter Chemotherapy management, encounter for Wears glasses Wears dentures Cancer Alcohol use History of pulmonary embolus (PE) History of hepatitis A virus infection Gastric reflux Former smoker Shortness of breath on exertion History of tachycardia History of stress test History of echocardiogram Cardiology follow-up encounter Encounter for vitamin B12 injection while on pemetrexed chemotherapy Encounter for insertion of venous access port Diarrhea Encounter for monitoring cardiotoxic drug therapy Anemia Exertional dyspnea Headache COPD with exacerbation Dyspepsia and disorder of function of stomach Hydronephrosis with ureteral calculus NSCLC of left lung Essential hypertension Encounter for education Pleural effusion, left History of lung cancer in adulthood Lung nodule < 6cm on CT Sinus tachycardia Raynauds disease Chest pain COPD (chronic obstructive pulmonary disease) Lung mass Colitis Exertional dyspnea Skin cancer Hepatitis A Non-small cell lung cancer (NSCLC) Bilateral pulmonary embolism (11/06/14) Lung cancer Anxiety Ulcerative colitis Home Medications ?Medication ?Instructions ?Recorded ?Last Taken ?Type multivitamin with folic acid 400 1 tab PO DAILY SUPPLEMENT 09/16/14 11/26/23 History mcg tablet cholecalciferol (vitamin D3) 25 1,000 unit PO DAILY supplement 05/04/19 11/26/23 History mcg (1,000 unit) tablet loperamide 2 mg capsule (Imodium 2 mg PO Q4H PRN diarhea 08/12/19 Unknown History A-D) tiotropium bromide 18 mcg capsule 2 cap inhalation DAILY COPD 02/11/20 11/26/23 History with inhalation device (Spiriva with HandiHaler) Lactobacillus rhamnosus GG 15 1 cap PO DAILY probiotic 12/29/20 11/26/23 History billion cell sprinkle capsule (Culturelle) valacyclovir 500 mg tablet 500 mg PO DAILY viral infection 05/31/22 11/26/23 History ibuprofen 400 mg tablet 400 mg PO Q6H PRN pain 02/22/23 Unknown History vitamin E (dl, acetate) 180 mg 180 mg PO DAILY vitamin 02/22/23 11/26/23 History (400 unit) capsule osimertinib 80 mg tablet (Tagrisso) 80 mg PO DAILY cancer 06/18/23 11/26/23 History carvedilol 25 mg tablet 12.5 mg PO BID blood pressure 07/05/23 11/26/23 History dexamethasone 4 mg tablet 4 mg PO .COMPLEX infammation #40 09/12/23 11/26/23 Rx tabs folic acid 1 mg tablet 1 mg PO DAILY supplement #90 tabs 09/12/23 11/26/23 Rx lidocaine-prilocaine 2.5 %-2.5 % 1 applic topical ONCE PRN port 09/12/23 Unknown Rx topical cream access 30 days #30 grams ondansetron 8 mg disintegrating 8 mg PO Q8H PRN nausea and 09/12/23 Unknown Rx tablet vomiting #30 tabs pantoprazole 40 mg tablet,delayed 40 mg PO DAILY reflux #30 tabs 09/27/23 11/26/23 Rx release colestipol 1 gram tablet 2 g (2 x 1 gram) PO BID 04/01/24 05/14/24 Rx cholesterol 30 days #120 tabs albuterol sulfate 90 mcg/actuation 2 puff inhalation Q6H PRN 10/18/23 Unknown Rx aerosol inhaler (Ventolin HFA) shortness of breath or wheezing #6.7 grams prednisone 20 mg tablet 40 mg (2 x 20 mg) PO DAILY #9 tabs 11/28/23 Unknown Rx dicyclomine 20 mg tablet 20 mg PO 4X/DAY 11/30/23 Unknown History furosemide 20 mg tablet 20 mg PO DAILY 11/30/23 Unknown History Allergy/AdvReac Type Severity Reaction Status Date / Time adhesive tape Allergy Itching Verified 11/30/23 11:51 ipratropium (From Atrovent) Allergy Rash Verified 11/30/23 11:51 terbinafine HCl (From Allergy Rash Verified 11/30/23 11:51 Lamisil) lactose AdvReac Upset Verified 11/30/23 11:51 Stomach Family History Father Liver disease Mother Uterine cancer Brother Myocardial infarction, Onset Age: 60 Surgical History S/P IVC filter History of colonoscopy Malignant pleural effusion (02/07/23) ulnar nerve release left elbow History of thoracentesis EBUS guided biopsy History of bronchoscopy History of tonsillectomy History of hysterectomy H/O hernia repair Hx of cholecystectomy History of appendectomy Social History Smoking Status: Former smoker Tobacco: How many years used: 40 second hand exposure: No alcohol intake: never details: occasionally substance use type: does not use ROS Constitutional Constitutional: Reports fatigue; Denies anorexia, change in weight, chills, fever(s), night sweats or weakness Eyes Eyes: Denies blurry vision, change in vision, discharge from eye(s) or eye pain Cardiovascular Cardiovascular: Denies chest pain, claudication, edema or palpitations Respiratory/Chest Respiratory/Chest: Reports productive cough, shortness of breath at rest, shortness of breath with exertion and wheezing; Denies cough or hemoptysis Gastrointestinal Gastrointestinal: Denies abdominal pain, constipation, diarrhea, hematemesis, hematochezia, melena, nausea or vomiting Genitourinary Genitourinary: Denies dysuria, hematuria, urinary frequency, urinary hesitancy, urinary incontinence or urinary urgency Musculoskeletal Musculoskeletal: Denies back pain, joint pain, joint stiffness, joint swelling, myalgias or neck pain Neurologic Neurologic: Denies abnormal gait, abnormal speech, dizziness, focal weakness, headache(s), loss of vision, numbness, other visual disturbances, paresthesias, syncope or tingling Psychiatric Psychiatric: Denies anxiety, cognitive impairment, depression, irritability, mood swings or suicidal ideation Endocrine Endocrinology: Denies change in body appearance, cold intolerance, excessive sweating, heat intolerance, polydipsia or polyuria Hematologic/Lymphatic Hematologic/Lymphatic: Denies none, anemia, easy bleeding, easy bruising or lymphadenopathy Allergic/Immunologic Allergic/Immunologic: Denies rhinitis, urticaria, eczemia or asthma Vital Signs Vital Signs Vital Signs: 11/27/23 06:49 11/27/23 06:53 11/27/23 06:57 Temperature 98.2 F 97.8 F Temperature Source Oral Oral Pulse Rate 109 H 114 H Respiratory Rate 23 H 24 H Respiratory Effort Respiratory Depth Respiratory Pattern Blood Pressure 124/102 H 144/86 H Blood Pressure Mean 109 105 Blood Pressure Source Blood Pressure Position Blood Pressure Location Pulse Ox 99 99 99 Oxygen Delivery Method Nasal Cannula Nasal Cannula Nasal Cannula Oxygen Flow Rate (L/min) 2 2 2 Fraction of Inspired Oxygen (FIO2) 11/27/23 06:59 11/27/23 07:04 11/27/23 07:04 Temperature Temperature Source Pulse Rate 113 H Respiratory Rate 24 H Respiratory Effort Short of Breath Accessory Muscle Use Respiratory Depth Shallow Respiratory Pattern Tachypnea Tachypnea Blood Pressure Blood Pressure Mean Blood Pressure Source Blood Pressure Position Blood Pressure Location Pulse Ox 100 Oxygen Delivery Method Room Air Nasal Cannula Oxygen Flow Rate (L/min) 2 Fraction of Inspired Oxygen (FIO2) 11/27/23 07:37 11/27/23 07:49 11/27/23 08:00 Temperature 97.7 F L Temperature Source Axillary Pulse Rate 115 H 112 H 112 H Respiratory Rate 23 H 22 H 22 H Respiratory Effort Respiratory Depth Respiratory Pattern Tachypnea Blood Pressure 144/80 H 144/80 H Blood Pressure Mean 101 101 Blood Pressure Source Blood Pressure Position Blood Pressure Location Pulse Ox 100 98 Oxygen Delivery Method Nasal Cannula Bi-pap Oxygen Flow Rate (L/min) 1 Fraction of Inspired Oxygen (FIO2) 30 98 11/27/23 09:00 11/27/23 09:04 11/27/23 10:00 Temperature Temperature Source Pulse Rate 109 H 109 H 117 H Respiratory Rate 20 H 21 H 26 H Respiratory Effort Respiratory Depth Respiratory Pattern Normal Blood Pressure 125/76 H 141/90 H Blood Pressure Mean 92 107 Blood Pressure Source Blood Pressure Position Blood Pressure Location Pulse Ox 100 100 98 Oxygen Delivery Method Bi-pap Nasal Cannula Oxygen Flow Rate (L/min) 1 Fraction of Inspired Oxygen (FIO2) 30 11/27/23 11:00 11/27/23 11:00 11/27/23 12:00 Temperature 97.9 F 97.9 F 97.9 F Temperature Source Oral Oral Oral Pulse Rate 114 H 114 H 114 H Respiratory Rate 25 H 25 H 25 H Respiratory Effort Respiratory Depth Respiratory Pattern Blood Pressure 121/77 H 121/77 H 121/77 H Blood Pressure Mean 91 91 91 Blood Pressure Source Blood Pressure Position Blood Pressure Location Pulse Ox 98 98 98 Oxygen Delivery Method Nasal Cannula Nasal Cannula Nasal Cannula Oxygen Flow Rate (L/min) 1 1 1 Fraction of Inspired Oxygen (FIO2) 11/27/23 12:33 11/27/23 13:00 11/27/23 14:00 Temperature 98.0 F 98.0 F 98 F Temperature Source Axillary Axillary Temporal Pulse Rate 121 H 114 H 115 H Respiratory Rate 23 H 20 H 20 H Respiratory Effort Respiratory Depth Respiratory Pattern Blood Pressure 147/91 H 145/89 H 126/79 H Blood Pressure Mean 109 107 94 Blood Pressure Source Monitor Blood Pressure Position Semi-Fowlers Blood Pressure Location Right Arm Pulse Ox 97 97 94 Oxygen Delivery Method Room Air Room Air Room Air Oxygen Flow Rate (L/min) Fraction of Inspired Oxygen (FIO2) 11/27/23 14:45 11/27/23 14:45 11/27/23 14:48 Temperature 97.4 F L 97.4 F L 98 F Temperature Source Temporal Temporal Pulse Rate 116 H 116 H 115 H Respiratory Rate 24 H 24 H 20 H Respiratory Effort Respiratory Depth Respiratory Pattern Blood Pressure 141/82 H 141/82 H 126/79 H Blood Pressure Mean 101 101 94 Blood Pressure Source Monitor Monitor Blood Pressure Position Semi-Fowlers Semi-Fowlers Blood Pressure Location Right Arm Right Arm Pulse Ox 100 100 94 Oxygen Delivery Method Nasal Cannula Nasal Cannula Oxygen Flow Rate (L/min) 2 2 Fraction of Inspired Oxygen (FIO2) 11/27/23 15:15 11/27/23 15:30 11/27/23 16:30 Temperature 98.1 F 97.8 F 98.3 F Temperature Source Temporal Temporal Temporal Pulse Rate 116 H 116 H 114 H Respiratory Rate 22 H 24 H 22 H Respiratory Effort Respiratory Depth Respiratory Pattern Blood Pressure 136/82 H 123/79 H 121/74 H Blood Pressure Mean 100 93 89 Blood Pressure Source Monitor Monitor Monitor Blood Pressure Position Semi-Fowlers Semi-Fowlers Semi-Fowlers Blood Pressure Location Left Arm Left Arm Left Arm Pulse Ox 100 100 100 Oxygen Delivery Method Nasal Cannula Nasal Cannula Nasal Cannula Oxygen Flow Rate (L/min) 2 2 2 Fraction of Inspired Oxygen (FIO2) 11/27/23 16:45 11/27/23 17:00 Temperature 98.3 F 98.8 F Temperature Source Temporal Temporal Pulse Rate 116 H 118 H Respiratory Rate 22 H 24 H Respiratory Effort Respiratory Depth Respiratory Pattern Blood Pressure 140/81 H 128/84 H Blood Pressure Mean 100 98 Blood Pressure Source Monitor Monitor Blood Pressure Position Semi-Fowlers Semi-Fowlers Blood Pressure Location Right Arm Left Arm Pulse Ox 100 100 Oxygen Delivery Method Nasal Cannula Nasal Cannula Oxygen Flow Rate (L/min) 2 2 Fraction of Inspired Oxygen (FIO2) Weight Weight: 46.811 kg Body Mass Index (BMI) 18.8 Physical Exam Const alert, oriented x3 and no apparent distress General Appearance: cooperative, well kempt and well developed Orientation / Consciousness: awake, oriented to person, oriented to place and oriented to time HEENT normocephalic, head/scalp atraumatic and moist oral mucous membranes Eyes PERRL, EOMs intact bilaterally and conjunctivae normal Neck supple, no JVD, thyroid normal and no carotid bruits General: trachea midline Resp normal respiratory effort and no retractions Resp Narrative: Scattered expiratory wheezes are noted bilaterally Auscultation: Negative for rales, rhonchi or wheezes Cardio regular rate, regular rhythm, S1 normal heart sound, S2 normal heart sound, no murmurs, no rub and no gallops GI normal to inspection, nondistended, normoactive bowel sounds, soft to palpation, non-tender and non-distended Extremity no clubbing, cyanosis or edema Skin no rashes or lesions noted General Skin Exam: no breakdown Neuro oriented x3, CN's II-XII intact bilaterally, moves all extremities, no focal motor deficits and no sensory deficits noted Sensorium / Orientation: awake and alert Speech: speech normal Psych affect normal Results Lab / Micro Data 11/28/23 06:55 11/27/23 07:50 Labs: Laboratory Results - last 24 hr 11/27/23 07:50: WBC 3.3 L, RBC 2.18 L, Hgb 6.5 L, Hct 20.8 L, MCV 95.4, MCH 29.8, MCHC 31.3 L, RDW Std Deviation 76.4 H, RDW Coeff of Hiram 22.5 H, Plt Count 275, MPV 10.2, Immature Gran % (Auto) 0.600, Neut % (Auto) 88.3 H, Lymph % (Auto) 8.7 L, Butler % (Auto) 2.1, Eos % (Auto) 0.0, Baso % (Auto) 0.3, Absolute Neuts (auto) 2.9, Absolute Lymphs (auto) 0.29 L, Nucleated RBC % 0, Differential Comment COMMENT, Anisocytosis 1+, Sodium 134 L, Potassium 4.3, Chloride 103, Carbon Dioxide 28.0, Anion Gap 3 L, BUN 16, Creatinine 0.91, Estim Creat Clear Calc 39.97, Est GFR (MDRD) Af Amer 77, Est GFR (MDRD) Non-Af 64, BUN/Creatinine Ratio 17.6, Glucose 100, Calcium 8.4 L, Troponin I High Sens 6, B-Natriuretic Peptide 467.5 H 11/27/23 10:00: Blood Type A POSITIVE, Antibody Screen NEGATIVE, Crossmatch See Detail 11/27/23 10:00: Crossmatch See Detail ABG Data ABG results: ABG 11/27/23 07:49 Specimen Type JOE Sample Site Not entered O2 % 30.0 VBG pH 7.38 VBG pO2 37 VBG HCO3 25 VBG Total CO2 26 VBG O2 Sat (Calc) 69 VBG Base Excess 0 POC Mix VBG pCO2 Pt Tmp 41.6 Respiration Rate 12 O2 Delivery Device BiPAP POC PEEP 8 Imaging Radiology Impression Chest X-Ray 11/27/23 08:04 IMPRESSION: Stable examination. No acute abnormality is seen. Electronically Signed: Kingsley Clements MD at 8:31 EDT , Assessment & Plan Assessment/Plan (1) COPD exacerbation: PLAN: Plan 1. Acute hypoxic respiratory failure secondary to COPD exacerbation-patient will be admitted to PCU, aerosol treatments will be given, patient will be placed on IV corticosteroids, respiratory panel will be obtained. I have elected to repeat the patient's echocardiogram due to her elevated beta nitric peptide. #2 anemia secondary to chemotherapy for lung cancer-patient will be transfused 2 units of packed red blood cells and labs will be monitored #3 chronic lung cancer-complicates care, management, recovery, and prognosis Total clinical time spent by myself addressing the patient's medical issues, reviewing all of her data, and collaborating with patient's care team: 75 minutes Charges/Coding Visit Charges Inpatient E&M: 82232 Init Hosp L3
[2023-11-27] MEDS: Furosemide 20 MG/2 ML VIAL IV (18:47)
[2023-11-27] MEDS: 0.9% Normal Saline (500mL Bag) 500 ML 999 ML IV (20:31)
[2023-11-27] MEDS: Carvedilol 12.5 MG Tablet PO (21:19)
[2023-11-27] MEDS: Acyclovir 200 MG Capsule 400 MG PO (21:19)
[2023-11-27 22:27] LABS: Hematocrit 27.2 % (37-47); Hemoglobin 8.9 g/dL (12.0-15.0); POSITIVE MORPHOLOGY YES
--- NOTE | 2023-11-27 23:52 | CPS ---
PAP pressures decreased from 14/8 to 12/6 for patient comfort.
[2023-11-28] VITALS (9 sets, daily range): BP systolic 111–135; BP diastolic 71–90; PULSE 108–120; RESP 12–24; TEMP 36.4–36.9; O2SAT 97–100
[2023-11-28 07:15] LABS: Hematocrit 28.1 % (37-47); Hemoglobin 9.1 g/dL (12.0-15.0); Mean Corp Hgb Conc 32.4 g/dL (32-36); Mean Corpuscular Hgb 29.5 pg (27.0-32.0); Mean Corpuscular Volume 91.2 fL (81-99); Mean Platelet Vol. 10.1 fl (6.2-12.0); POSITIVE COUNT YES; POSITIVE DIFFERENTIAL YES; POSITIVE MORPHOLOGY YES; Platelet Count 226 K/mm3 (150-450); RBC Distribution Width CV 21.1 % (11.6-14.6); RBC Distribution Width SD 67.7 fl (35.1-43.9); Red Blood Count 3.08 M/mm3 (4.2-5.4); White Blood Count 2.3 K/mm3 (4.4-11.0)
[2023-11-28] MEDS: Albuterol 2.5 MG/3 ML VIAL.NEB. INHALATION ×2 (07:39→10:55)
[2023-11-28 07:41] LABS: Differential Indicated MANUAL DIFF
[2023-11-28 09:17] LABS: Lymphocyte 7 % (19-41); Monocyte 1 % (0-10); Neutrophil-Segmented 92 % (47-70); Total Cells Counted 100 (MANUAL DIFF)
[2023-11-28 09:19] LABS: Anisocytosis 1+; Platelet Estimate ADEQUATE (ADEQ); Red Cell Morphology N CHROM NORMAL (NORM C&C)
[2023-11-28 09:21] LABS: Absolute Neutrophil Count 2.1 X10^3/uL (2.0-7.7)
[2023-11-28] MEDS: Acyclovir 200 MG Capsule 400 MG PO (09:49)
[2023-11-28] MEDS: Pantoprazole Sodium 40 MG Tablet PO (09:49)
[2023-11-28] MEDS: Carvedilol 12.5 MG Tablet PO (09:49)
--- NOTE | 2023-11-28 12:11 | CASEMGMT ---
DUGLAS OCHOA Assessment Face to Face with patient for initial transition planning/care coordination assessment. RN DON introduced self and role at [facility], pt voices understanding. Pt is A&Ox4 and is resting comfortably in bed and is calm. Care providers, pharmacy, and demographics verified. Admitting dx: RF, COPD Exacerbation PCP: Vlad Dennis Specialists: Mary Kate (Oncology), TACOS, Friend (GI), Yelena (Vascular) Preferred Pharmacy: [facility] Insurance: MCR A/B, AET[employer] Supplement Prescription Benefit: Yes LNOK: Nirali Bhakta ([facility]) Living Arrangements: Pt lives with a roommate in a 1st floor apt with a flat entrance ADLs/IADLs: Ind Transportation: Self, Roommate, daughter DME: Pt is currently 99% on RA. CM to follow for any home o2 needs. Pt states that she has a BP cuff and GB in shower. Pt denies needing a walker at this time HHC/SNF: Denies SNF history. Pt states she was active with [facility] () for a drain that was recently taken out. Pt?s goal: Home no needs Plan: Home no needs. Pt 6-Click is 24. No therapy ordered. Pt denies the need for HHC, OP Therapy, SNF, pt link, and CCN. Pt wishes to return home at time of DC and states feeling safe doing so. CM to follow for safe DC from [facility]. Polo Willoughby RN, CM
--- NOTE | 2023-11-28 12:48 | DCINST_ITS ---
Discharge Instructions Diet Discharge Diet: No restrictions Activity Discharge Activity: Return to Normal Activity Weight Bearing Status: Full weight bearing Follow Up Care Test Results: Test results from this visit will be discussed in further detail at your follow- up appointment, if applicable. Discharge Plan Admission Admit Date/Time: 11/27/23 10:30 Primary Reason for Your Visit: Rhinovirus upper respiratory tract infection Attending Provider: Leandro Escalante Primary Care Provider: Vlad Dennis Instructions Additional Instructions / Restrictions: Follow up with your oncologist as instructed Discharge Orders/Prescriptions Prescriptions: New prednisone 20 mg tablet 40 mg PO DAILY Qty: 9 0RF Rx Instructions: two per day for 3 days, then one daily for 3 days, then stop Continued loperamide [Imodium A-D] 2 mg capsule 2 mg PO Q4H PRN (Reason: diarhea) Rx Instructions: after each loose stool until symptoms controlled;do not exceed 16 mg total dose in 24 hrs Spiriva with HandiHaler 18 mcg capsule, w/inhalation device 2 cap INHALATION DAILY Rx Instructions: puncture 1 cap using device; one dose = 2 inhalations Culturelle 15 billion cell capsule, sprinkle 1 cap PO DAILY valacyclovir 500 mg tablet 500 mg PO DAILY Patient Comments: TAKE 1 TABLET BY MOUTH THREE TIMES DAILY DIRECTED ibuprofen 400 mg tablet 400 mg PO Q6H PRN (Reason: pain) vitamin E (dl, acetate) 180 mg (400 unit) capsule 180 mg PO DAILY Tagrisso 80 mg tablet 80 mg PO DAILY carvedilol 25 mg tablet 12.5 mg PO BID Rx Instructions: must administer with a meal/food ondansetron 8 mg tablet,disintegrating 8 mg PO Q8H PRN (Reason: nausea and vomiting) Qty: 30 2RF lidocaine-prilocaine 2.5-2.5 % cream 1 applic topical ONCE PRN (Reason: port access) 30 Days Qty: 30 2RF dexamethasone 4 mg tablet 4 mg PO .COMPLEX Qty: 40 0RF Rx Instructions: 4 mg orally twice a day ONLY the day before, the day of, and the day after chemotherapy folic acid 1 mg tablet 1 mg PO DAILY Qty: 90 1RF albuterol sulfate [Ventolin HFA] 90 mcg/actuation HFA aerosol inhaler 2 puff inhalation Q6H PRN (Reason: shortness of breath or wheezing) Qty: 6.7 0RF multivitamin with folic acid 1 TABLET tablet 1 tab PO DAILY Patient Comments: supplement cholecalciferol (vitamin D3) 1,000 UNIT tablet 1,000 unit PO DAILY pantoprazole 40 mg tablet,delayed release (DR/EC) 40 mg PO DAILY Qty: 30 4RF colestipol 1 gram tablet 2 g PO BID 30 Days Qty: 120 2RF Referrals / Follow Up: Vlad Dennis MD [Primary Care Provider] - Within 2 Weeks Disposition Disposition (needs filled in before D/C Order can be placed): Home, Self Care
--- NOTE | 2023-11-28 12:59 | DS.PCM_ITS ---
Providers Date of Admission: 11/27/23 Date of Discharge: 11/28/23 Primary Care Physician: Dr. Vlad Dennis MD Reason For Visit: RESPIRATORY FAILURE, COPD EXACERBATION Diagnosis Discharge Diagnosis (1) COPD exacerbation: Status: Chronic Code(s): J44.1 - Chronic obstructive pulmonary disease with (acute) exacerbation Plan Final diagnosis: #1 acute hypoxic respiratory failure secondary to exacerbation of COPD from rhinovirus upper respiratory infection #2 acute anemia secondary to chemotherapy for lung cancer #3 leukopenia secondary to chemotherapy for lung cancer #4 cardiomyopathy-probably secondary to chemotherapy for lung cancer Medications at Discharge Home Medications multivitamin with folic acid 400 mcg tablet 1 tab PO DAILY SUPPLEMENT 09/16/14 cholecalciferol (vitamin D3) 25 mcg (1,000 unit) tablet 1,000 unit PO DAILY supplement 05/04/19 tiotropium bromide 18 mcg capsule with inhalation device (Spiriva with HandiHaler) 2 cap inhalation DAILY COPD 02/11/20 Lactobacillus rhamnosus GG 15 billion cell sprinkle capsule (Culturelle) 1 cap PO DAILY probiotic 12/29/20 valacyclovir 500 mg tablet 500 mg PO DAILY viral infection 05/31/22 vitamin E (dl, acetate) 180 mg (400 unit) capsule 180 mg PO DAILY vitamin 02/22/23 osimertinib 80 mg tablet (Tagrisso) 80 mg PO DAILY cancer 06/18/23 carvedilol 25 mg tablet 12.5 mg PO BID blood pressure 07/05/23 dexamethasone 4 mg tablet 4 mg PO .COMPLEX infammation #40 tabs 09/12/23 folic acid 1 mg tablet 1 mg PO DAILY supplement #90 tabs 09/12/23 lidocaine-prilocaine 2.5 %-2.5 % topical cream 1 applic topical ONCE PRN port access 30 days #30 grams 09/12/23 ondansetron 8 mg disintegrating tablet 8 mg PO Q8H PRN nausea and vomiting #30 tabs 09/12/23 pantoprazole 40 mg tablet,delayed release 40 mg PO DAILY reflux #30 tabs 09/27/23 colestipol 1 gram tablet 2 g (2 x 1 gram) PO BID cholesterol 30 days #120 tabs 10/14/23 albuterol sulfate 90 mcg/actuation aerosol inhaler (Ventolin HFA) 2 puff inhalation Q6H PRN shortness of breath or wheezing #6.7 grams 10/18/23 prednisone 20 mg tablet 40 mg (2 x 20 mg) PO DAILY #9 tabs 11/28/23 calcium carbonate (Oyster Shell Calcium) 1,000 mg PO DAILY 11/30/23 furosemide 20 mg tablet 20 mg PO DAILY 11/30/23 Hospital Course Operations None Procedures 2-D Echocardiogram Summary of Care Provided Minutes Spent on Discharge: 31 Hospital Course: This 78-year-old white female was seen in the emergency room at [facility] complaining of shortness of breath which started in the survey rodman hours before she was seen in the emergency room. Patient denied any chest pain, she stated she had a cough productive of white sputum. Workup in the emergency room included a chest x-ray that did not show any significant change from her previous chest x-ray, patient's white blood cell count was low at 3.3, hemoglobin was low at 6.5, and her beta natruretic peptide was 467. Patient was given aerosol treatments in the emergency room and she was admitted to PCU, respiratory panel was obtained which was positive for rhinovirus, patient was transfused 2 units packed red blood cells and an echocardiogram was obtained which did not result until after the patient was discharged from the hospital. Patient was given IV corticosteroids and aerosol treatments during her hospitalization and was weaned off oxygen before discharge. On 11/28/2023, patient was seen and examined: On examination she does not appear to be in any distress. Vital signs as documented. Skin warm and dry and without overt rashes. Neck without JVD, thyroid appears normal, trachea is midline, neck is supple. Lungs clear, normal air movement was noted. Heart exam notable for regular rhythm, normal sounds and absence of murmurs, rubs or gallops. Abdomen unremarkable and without evidence of organomegaly, masses, or abdominal aortic enlargement, bowel sounds are present in all 4 quadrants, no abdominal tenderness was noted. Extremities nonedematous, no cyanosis was noted, no clubbing was noted. Neuro: Cranial nerves II through XII are grossly intact, no focal motor deficits were noted, sensation to light touch and pinprick is intact, motor exam 5/5 throughout. Psych: Patient is alert and oriented x3, she does not appear anxious or depressed, she does not appear agitated. 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 Patient was advised to resume her losartan that she had been on in the past at 50 mg daily and a prescription for Lasix 20 mg once a day was phoned into her pharmacy. Weight / BMI Weight Weight: 46.811 kg Body Mass Index (BMI) 18.8 ABG / Lab / Microbiology Data 11/28/23 06:55 11/27/23 07:50 Laboratory: Laboratory Results - last 24 hr 11/27/23 10:00: Crossmatch See Detail 11/27/23 22:15: Hgb 8.9 L, Hct 27.2 L 11/28/23 06:55: WBC 2.3 L, RBC 3.08 L, Hgb 9.1 L, Hct 28.1 L, MCV 91.2, MCH 29.5, MCHC 32.4, RDW Std Deviation 67.7 H, RDW Coeff of Hiram 21.1 H, Plt Count 226, MPV 10.1, Neut % (Auto) Not Reportable, Absolute Neuts (auto) 2.1, Absolute Lymphs (auto) 0.20 L, Total Counted 100, Neutrophils % (Manual) 92 H, L ymphocytes % (Manual) 7 L, Monocytes % (Manual) 1, Platelet Estimate ADEQUATE, RBC Morphology N CHROM, Anisocytosis 1+ Microbiology: Microbiology 11/27/23 16:02 Mucosa - Nose Respiratory Panel (PCR) - Final Rhinovirus D/C Instructions Discharge Diet: No restrictions Weight Bearing Status: Full weight bearing Meaningful Use Info Meaningful Use Meaningful Use Diagnoses (Choose all that apply): None applicable Ischemic Stroke Statin Dosing Therapy Reference: STATIN DOSE THERAPY REFERENCE: * Patients > 75 years receive moderate or high dose statin therapy. * Patients 75 years or YOUNGER should receive HIGH intensity statin dose unless contraindicated. You will be required to document reason for non-treatment if statin daily dose does not meet guidelines. HIGH DOSE STATIN THERAPY DAILY Atorvastatin > than or = to 40 mg Rosuvastatin > than or = to 20 mg Amlodipine + Atorvastatin > than or = to 2.5/40 mg Ezetimibe + Simvastatin 10/80 mg Simvastatin 80mg Discharge Plan Admission Admit Date/Time: 11/27/23 10:30 Primary Reason for Your Visit: Rhinovirus upper respiratory tract infection Attending Provider: Leandro Escalante Primary Care Provider: Vlad Dennis Instructions Additional Instructions / Restrictions: Follow up with your oncologist as instructed Discharge Orders/Prescriptions Prescriptions: New prednisone 20 mg tablet 40 mg PO DAILY Qty: 9 0RF Rx Instructions: two per day for 3 days, then one daily for 3 days, then stop Continued loperamide [Imodium A-D] 2 mg capsule 2 mg PO Q4H PRN (Reason: diarhea) Rx Instructions: after each loose stool until symptoms controlled;do not exceed 16 mg total dose in 24 hrs Spiriva with HandiHaler 18 mcg capsule, w/inhalation device 2 cap INHALATION DAILY Rx Instructions: puncture 1 cap using device; one dose = 2 inhalations Culturelle 15 billion cell capsule, sprinkle 1 cap PO DAILY valacyclovir 500 mg tablet 500 mg PO DAILY Patient Comments: TAKE 1 TABLET BY MOUTH THREE TIMES DAILY DIRECTED ibuprofen 400 mg tablet 400 mg PO Q6H PRN (Reason: pain) vitamin E (dl, acetate) 180 mg (400 unit) capsule 180 mg PO DAILY Tagrisso 80 mg tablet 80 mg PO DAILY carvedilol 25 mg tablet 12.5 mg PO BID Rx Instructions: must administer with a meal/food ondansetron 8 mg tablet,disintegrating 8 mg PO Q8H PRN (Reason: nausea and vomiting) Qty: 30 2RF lidocaine-prilocaine 2.5-2.5 % cream 1 applic topical ONCE PRN (Reason: port access) 30 Days Qty: 30 2RF dexamethasone 4 mg tablet 4 mg PO .COMPLEX Qty: 40 0RF Rx Instructions: 4 mg orally twice a day ONLY the day before, the day of, and the day after chemotherapy folic acid 1 mg tablet 1 mg PO DAILY Qty: 90 1RF albuterol sulfate [Ventolin HFA] 90 mcg/actuation HFA aerosol inhaler 2 puff inhalation Q6H PRN (Reason: shortness of breath or wheezing) Qty: 6.7 0RF multivitamin with folic acid 1 TABLET tablet 1 tab PO DAILY Patient Comments: supplement cholecalciferol (vitamin D3) 1,000 UNIT tablet 1,000 unit PO DAILY pantoprazole 40 mg tablet,delayed release (DR/EC) 40 mg PO DAILY Qty: 30 4RF colestipol 1 gram tablet 2 g PO BID 30 Days Qty: 120 2RF No Action dicyclomine 20 mg tablet 20 mg PO 4X/DAY furosemide 20 mg tablet 20 mg PO DAILY Referrals / Follow Up: Vlad Dennis MD [Primary Care Provider] - 12/06/23 10:10 am () Disposition Disposition (needs filled in before D/C Order can be placed): Home, Self Care Charges/Coding Visit Charges Inpatient E&M: 93459 Disch Hosp >30min
--- NOTE | 2023-11-28 13:38 | ECHOL_ITS ---
Reason For Study: SOB/DYSPNEA Procedure This was a limited 2D transthoracic echocardiogram. Myocardial strain analysis was performed in this exam to aid in the assessment of cardiac function. The study was technically difficult. Due to heart rate. Exam performed portable in patient room. Left Ventricle Normal LV size. The global longitudinal strain = -10.1% (abnormal). The estimated ejection fraction is 35 %. There is moderate to severe global hypokinesis of the left ventricle. Right Ventricle Normal RV size. Normal systolic function. Atria Normal left atrium. Normal right atrium. No doppler evidence for ASD. Mitral Valve There is mild mitral annular calcification. There is no mitral valve stenosis. No mitral valve insufficiency. Tricuspid Valve There is no tricuspid stenosis. Trivial tricuspid valve insufficiency. Unable to estimate RV systolic pressure due to insufficient tricuspid regurgitant envelope. Aortic Valve Trisinus/trileaflet aortic valve. Aortic sclerosis, no stenosis. There is no aortic stenosis. No aortic valve insufficiency. Pulmonic Valve There is no pulmonic valvular stenosis. No pulmonic valve insufficiency. Great Vessels Normal aortic root. Pericardium/Pleural No pericardial effusion. MMode/2D Measurements & Calculations LVIDd: 5.7 cm IVSd: 0.85 cm Ao root diam: 3.2 cm LVIDs: 4.5 cm LVPWd: 0.75 cm LA dimension: 3.1 cm RVDd: 2.3 cm FS: 21.6 % LAV(MOD-bp): 32.4 ml LVAd ap4: 25.6 cm2 LVAd ap2: 23.8 cm2 LAV(MOD-bp) Indexed: 22.5 ml/m2 LVLd ap4: 7.0 cm LVLd ap2: 6.6 cm LAV(MOD-sp2): 33.3 ml EDV(MOD-sp4): 77.0 ml EDV(MOD-sp2): 70.0 ml LAV(MOD-sp4): 26.4 ml EDV(sp4-el): 78.9 ml EDV(sp2-el): 72.0 ml LVAs ap4: 20.3 cm2 LVAs ap2: 19.0 cm2 LVLs ap4: 6.0 cm LVLs ap2: 6.0 cm ESV(MOD-sp4): 55.4 ml ESV(MOD-sp2): 49.1 ml ESV(sp4-el): 58.0 ml ESV(sp2-el): 51.2 ml EF(MOD-sp4): 28.0 % EF(MOD-sp2): 29.8 % EF(sp4-el): 26.4 % SV(MOD-sp4): 21.6 ml SV(MOD-sp2): 20.8 ml SV(sp4-el): 20.9 ml TAPSE: 1.9 cm LA A4 area: 11.3 cm2 RA A4 area: 8.9 cm2 ECHO/Echo, Limited Study Interpretation Summary The estimated ejection fraction is 35 %. There is moderate to severe global hypokinesis of the left ventricle. Ordering Physician: Leandro Escalante Referring Physician: Vlad Dennis Performed By: Avis Olivares, EVAN, RVT
--- NOTE | 2023-11-28 13:48 | CASEMGMT ---
Patient has order for discharge. RN CM in to discuss needs at discharge. Patient denies needs or help at discharge. Patient had no further questions or concerns.
[2023-11-28] MEDS: 0.9% Saline Lock 10 ML Syringe IV (15:08)
--- NOTE | 2023-11-28 15:08 | CHAPLAIN ---
Type of Pastoral Visit ___ Initial Visit ___ Follow-up Visit ___ On-call Visit ___ General Patient Visit ___ Spiritual Assessment ___ Family Conference ___ Bereavement ___ Rapid Response ___ Code Blue ___ Other (describe below) Pastoral Care Referral From ___ Patient ___ Family ___ Nurse ___ Physician ___ Household Refrigeration Mechanic ___ Dog Boarder ___ Other (describe below) Sacrament/Intervention ___ Active listening ___ Anointing ___ Church ___ Bereavement ___ Communion ___ Namrata exploration ___ ___ Life review ___ Prayer ___ Reconciliation ___ Sacrament of Sick ___ Supportive presence ___ Wedding ___ Other (describe below) Pastoral Comments patient was not in the room and appeared to have been discharged at time of attempted visit
--- NOTE | 2023-11-28 18:59 | PN.HOSP_ITS ---
Hospitalist Note Additional note: Patient was discharged on 11/28/2023 before the results of her echocardiogram resulted, her echocardiogram showed a decreased EF at 35%, there was moderate to severe global hypokinesis of the left ventricle noted, I contacted the patient went over these results with her, her echocardiogram in April of last year showed a normal EF at 50%. I will need to talk to her oncologist tomorrow to see if any of her chemo drugs could be causing this, I will also contact Lissy Man and Dr. Peralta's office to have her follow- up with the patient. Finally, patient does have losartan at home which she had been on in the past I asked her to resume losartan 50 mg 1 daily and I called in a prescription for Lasix 20 mg 1 daily to [facility] for the patient to take.
[2023-11-29 11:55] LABS: Pathologist Review Reviewed
== END 2023-11-28 15:16 | disposition home or self-care (01) | DRG 190 ==
LOC: ED 09:10 → PCU 14:25
PROVIDERS: Emergency Medicine; Admitting Provider Internal Medicine; Emergency Provider Emergency Medicine; PCP Family Medicine; Visit Provider Internal Medicine
DX: J44.1 Chronic obstructive pulmonary disease with (acute) exacerbation (principal); J96.01 Acute respiratory failure with hypoxia; C34.92 Malignant neoplasm of unspecified part of left bronchus or lung; I42.8 Other cardiomyopathies; D70.1 Agranulocytosis secondary to cancer chemotherapy; B97.4 Respiratory syncytial virus as the cause of diseases classified elsewhere; D64.81 Anemia due to antineoplastic chemotherapy; I11.9 Hypertensive heart disease without heart failure; J06.9 Acute upper respiratory infection, unspecified; Z99.81 Dependence on supplemental oxygen; T45.1X5A Adverse effect of antineoplastic and immunosuppressive drugs, initial encounter; Z66 Do not resuscitate; Z79.899 Other long term (current) drug therapy; Z87.891 Personal history of nicotine dependence
CPT/HCPCS: 36415; 36591; 71045; 80048; 82803; 83880; 84484; 85014; 85018; 85025; 86850; 86900; 86901; 86920; 86922; 87633; 93005; 93308; 94002; 94003; 94640; 94762; 99285; J7030; J7040; P9016; A4216; J1940

== ENCOUNTER 2023-11-30 11:50 | Inpatient (IN) | payer MEDICARE, OTHER, SELFPAY ==
[2023-11-30] VITALS (8 sets, daily range): BP systolic 112–145; BP diastolic 73–95; PULSE 108–130; RESP 18–22; TEMP 36.3–36.8; O2SAT 90–99; BMI 17.5
--- NOTE | 2023-11-30 12:15 | EKG12_ITS ---
Test Reason : SOB Blood Pressure : / mmHG Vent. Rate : 117 BPM Atrial Rate : 117 BPM P-R Int : 120 ms QRS Dur : 076 ms QT Int : 356 ms P-R-T Axes : 066 073 059 degrees QTc Int : 496 ms Sinus tachycardia with frequent Premature ventricular complexes Otherwise normal ECG Confirmed by Paul Barr ([id number]), managing editor ZENOBIA JAVED ([id number]) on 12/02/2023 9:05:39 AM Referred By: Confirmed By:Paul Barr
--- NOTE | 2023-11-30 12:17 | ED.VIS.DYS ---
HPI History of Present Illness Chief Complaint: Shortness of Breath Informant: patient Narrative Narrative: 78-year-old female presenting to the emergency room with dyspnea. Patient states that she was admitted to the hospital for a head cold on Saturday and was feeling better on and was discharged home. It is noted that she had a hemoglobin of about 6.4 was transfused blood. She was reportedly having wheezing and required temporary BiPAP therapy. She was also discharged home on steroids. It was also noted that the patient has an ejection fraction of 35% which possibly due to her chemotherapy for stage IV lung cancer. She states that she has subsequently started a low-dose diuretic. I see recently was in the hospital for pleural effusion had drainage and chest tube. She had been diagnosed with pulmonary embolism and ended up with GI bleeding which was addressed through endoscopy/colonoscopy. Patient states today she was more acutely short of breath has a phlegm like sensation that she is unable to clear. She feels that her heart is racing. [facility] Medical History DVT (deep venous thrombosis) HTN (hypertension) Vision changes Shortness of breath Hypokalemia Weight loss Pulmonary embolism Pneumonia Immunotherapy encounter Chemotherapy management, encounter for Wears glasses Wears dentures Cancer Alcohol use History of pulmonary embolus (PE) History of hepatitis A virus infection Gastric reflux Former smoker Shortness of breath on exertion History of tachycardia History of stress test History of echocardiogram Cardiology follow-up encounter Encounter for vitamin B12 injection while on pemetrexed chemotherapy Encounter for insertion of venous access port Diarrhea Encounter for monitoring cardiotoxic drug therapy Anemia Exertional dyspnea Headache COPD with exacerbation Dyspepsia and disorder of function of stomach Hydronephrosis with ureteral calculus NSCLC of left lung Essential hypertension Encounter for education Pleural effusion, left History of lung cancer in adulthood Lung nodule < 6cm on CT Sinus tachycardia Raynauds disease Chest pain COPD (chronic obstructive pulmonary disease) Lung mass Colitis Exertional dyspnea Skin cancer Hepatitis A Non-small cell lung cancer (NSCLC) Bilateral pulmonary embolism (11/06/14) Lung cancer Anxiety Ulcerative colitis Home Medications ?Medication ?Instructions ?Recorded ?Last Taken ?Type multivitamin with folic acid 400 1 tab PO DAILY SUPPLEMENT 09/16/14 11/26/23 History mcg tablet cholecalciferol (vitamin D3) 25 1,000 unit PO DAILY supplement 05/04/19 11/26/23 History mcg (1,000 unit) tablet loperamide 2 mg capsule (Imodium 2 mg PO Q4H PRN diarhea 08/12/19 Unknown History A-D) tiotropium bromide 18 mcg capsule 2 cap inhalation DAILY COPD 02/11/20 11/26/23 History with inhalation device (Spiriva with HandiHaler) Lactobacillus rhamnosus GG 15 1 cap PO DAILY probiotic 12/29/20 11/26/23 History billion cell sprinkle capsule (Culturelle) valacyclovir 500 mg tablet 500 mg PO DAILY viral infection 05/31/22 11/26/23 History ibuprofen 400 mg tablet 400 mg PO Q6H PRN pain 02/22/23 Unknown History vitamin E (dl, acetate) 180 mg 180 mg PO DAILY vitamin 02/22/23 11/26/23 History (400 unit) capsule osimertinib 80 mg tablet (Tagrisso) 80 mg PO DAILY cancer 06/18/23 11/26/23 History carvedilol 25 mg tablet 12.5 mg PO BID blood pressure 07/05/23 11/26/23 History dexamethasone 4 mg tablet 4 mg PO .COMPLEX infammation #40 09/12/23 11/26/23 Rx tabs folic acid 1 mg tablet 1 mg PO DAILY supplement #90 tabs 09/12/23 11/26/23 Rx lidocaine-prilocaine 2.5 %-2.5 % 1 applic topical ONCE PRN port 09/12/23 Unknown Rx topical cream access 30 days #30 grams ondansetron 8 mg disintegrating 8 mg PO Q8H PRN nausea and 09/12/23 Unknown Rx tablet vomiting #30 tabs pantoprazole 40 mg tablet,delayed 40 mg PO DAILY reflux #30 tabs 09/27/23 11/26/23 Rx release colestipol 1 gram tablet 2 g (2 x 1 gram) PO BID 10/14/23 11/26/23 Rx cholesterol 30 days #120 tabs albuterol sulfate 90 mcg/actuation 2 puff inhalation Q6H PRN 10/18/23 Unknown Rx aerosol inhaler (Ventolin HFA) shortness of breath or wheezing #6.7 grams prednisone 20 mg tablet 40 mg (2 x 20 mg) PO DAILY #9 tabs 11/28/23 Unknown Rx dicyclomine 20 mg tablet 20 mg PO 4X/DAY 11/30/23 Unknown History furosemide 20 mg tablet 20 mg PO DAILY 11/30/23 Unknown History Allergy/AdvReac Type Severity Reaction Status Date / Time adhesive tape Allergy Itching Verified 11/30/23 11:51 ipratropium (From Atrovent) Allergy Rash Verified 11/30/23 11:51 terbinafine HCl (From Allergy Rash Verified 11/30/23 11:51 Lamisil) lactose AdvReac Upset Verified 11/30/23 11:51 Stomach Family History Father Liver disease Mother Uterine cancer Brother Myocardial infarction, Onset Age: 60 Surgical History S/P IVC filter History of colonoscopy Malignant pleural effusion (02/07/23) ulnar nerve release left elbow History of thoracentesis EBUS guided biopsy History of bronchoscopy History of tonsillectomy History of hysterectomy H/O hernia repair Hx of cholecystectomy History of appendectomy Social History Smoking Status: Former smoker Tobacco: How many years used: 40 second hand exposure: No alcohol intake: never details: occasionally substance use type: does not use ROS ROS ED Constitutional Constitutional ED: Reports sweats and other Details: No definitive fever but patient states that she felt quite sweaty this afternoon ; Denies chills, fever(s) or weight loss Eyes Eyes: Denies change in vision or diplopia ENT ENT ED: Denies ear pain, rhinorrhea or sore throat Cardiovascular Cardiovascular: Reports racing heartbeat and other Details: Patient reports a diffuse chest heaviness anteriorly ; Denies chest pain, orthopnea or palpitations Respiratory/Chest Respiratory/Chest: Reports cough and dyspnea; Denies orthopnea Gastrointestinal Gastrointestinal: Reports diarrhea; Denies abdominal pain, nausea or vomiting Genitourinary Genitourinary ED: Denies dysuria, hematuria or urinary frequency Musculoskeletal Musculoskeletal: Denies arthralgias or myalgias Integumentary Denies abscess or rash Neurologic Neurologic: Denies headache(s) or weakness Psychiatric Psychiatric: Denies anxiety, depression, suicidal ideation or suicidal thoughts Endocrine Endocrinology: Denies polydipsia, polyphagia or polyuria Allergic/Immunologic Allergic/Immunologic ED: Denies mouth swelling, tongue swelling or urticaria EXAM Physical Exam Narrative Exam Narrative: Patient does not appear in significant distress however does have tachypnea and wet sounding lungs that can be heard without auscultation Const Vital Signs: 11/30/23 11:51 11/30/23 11:51 11/30/23 12:26 Temperature 98 F Temperature Source Temporal Pulse Rate 130 H 128 H Respiratory Rate 18 18 Respiratory Effort Respiratory Pattern Blood Pressure 145/79 H 142/95 H Blood Pressure Mean 101 110 Pulse Ox 91 90 98 Oxygen Delivery Method Room Air Room Air Nasal Cannula Oxygen Flow Rate (L/min) 2 11/30/23 12:26 11/30/23 13:10 11/30/23 13:50 Temperature Temperature Source Pulse Rate 116 H 108 H Respiratory Rate 22 H 20 H Respiratory Effort Short of Breath Respiratory Pattern Tachypnea Tachypnea Blood Pressure 112/73 Blood Pressure Mean 86 Pulse Ox 96 Oxygen Delivery Method Nasal Cannula Nasal Cannula Oxygen Flow Rate (L/min) 3 3 Positive well nourished and well developed General Appearance ED: well developed HEENT Reports normocephalic, head/scalp atraumatic and moist mucous membranes Eyes PERRL and EOMs intact bilaterally Neck no lymphadenopathy, supple and no JVD Resp normal respiratory effort and clear to auscultation bilaterally Cardio regular rate, regular rhythm and no murmurs Rate: tachycardic GI normal to inspection, nondistended, normoactive bowel sounds and non-tender Palpation: soft Back/Spine no CVA tenderness and normal ROM Extremity normal to inspection General Extremety ED: Negative for edema General Extremity: Negative for edema Neuro oriented x3 and CN's II-XII intact bilaterally Sensorium / Orientation: alert Motor Exam: strength 5/5 throughout Psych mental status grossly normal Mood & Affect: Negative for depressed or tearful Skin no rashes or lesions noted and no wounds MDM MDM MDM Narrative Medical decision making narrative: Differential diagnosis includes pneumonia COPD CHF pleural effusion mucous plugging COPD exacerbation. Patient is pancytopenic with a hemoglobin of 9.1. Patient has a normal creatinine. Troponin is normal. EKG is tachycardic but nonischemic. My independent interpretation of the chest x-ray is no acute process. Her BNP is significantly elevated at 1800 today. Clinically when I listen to her I hear more rales than I do expiratory wheeze and I believe this is more volume overload/CHF especially in the light of her recent echocardiogram showing ejection fraction of 35%. She remains tachycardic and requiring supplemental oxygen. Case will be discussed with the hospitalist for admission History & Record Review Discussion w/independent historian: Patient Additional record(s) reviewed:: Prior inpatient record, Prior outpatient record, Prior ED visit and Prior labs Lab Data Attestation: I reviewed the patient's lab results. Labs: Laboratory Results - last 24 hr 11/30/23 12:57 WBC 1.6 L RBC 3.04 L Hgb 9.1 L Hct 28.0 L MCV 92.1 MCH 29.9 MCHC 32.5 RDW Std Deviation 67.8 H RDW Coeff of Hiram 20.7 H Plt Count 130 L MPV 10.0 Immature Gran % (Auto) 1.900 H Neut % (Auto) 83.5 H Lymph % (Auto) 9.5 L [place] % (Auto) 5.1 Eos % (Auto) 0.0 Baso % (Auto) 0.0 Absolute Neuts (auto) 1.3 L Absolute Lymphs (auto) 0.15 L Nucleated RBC % 0 Diff Path Review May foll Anisocytosis 1+ PT 14.2 INR 1.1 APTT 26.4 Sodium 134 L Potassium 3.5 Chloride 99 Carbon Dioxide 27.0 Anion Gap 8 BUN 21 H Creatinine 0.98 Est GFR (MDRD) Af Amer 71 Est GFR (MDRD) Non-Af 59 L BUN/Creatinine Ratio 21.5 H Glucose 143 H Lactic Acid 0.7 Calcium 8.2 L Total Bilirubin 0.50 Direct Bilirubin 0.19 AST 32 ALT 20 Alkaline Phosphatase 72 Troponin I High Sens 23 B-Natriuretic Peptide 1870.2 H Total Protein 6.0 L Albumin 2.8 L Globulin 3.2 Lipase 15 Radiography Diagnostic Testing: Clinical Impression(s) from Imaging Studies Chest X-Ray 11/30/23 13:04 IMPRESSION: No significant interval change. Electronically Signed: Kyara Watson MD at 13:33 EDT , EKG Initial EKG: Attestation: I personally reviewed and interpreted this EKG as follows: Comments: Sinus tachycardia with a ventricular rate of 117 bpm Discharge Plan Triage Chief Complaint: Shortness of Breath ED Provider: Carmelo De La Rosa Dx/Rx/DC Orders Prescriptions: No Action loperamide [Imodium A-D] 2 mg capsule 2 mg PO Q4H PRN (Reason: diarhea) Rx Instructions: after each loose stool until symptoms controlled;do not exceed 16 mg total dose in 24 hrs Spiriva with HandiHaler 18 mcg capsule, w/inhalation device 2 cap INHALATION DAILY Rx Instructions: puncture 1 cap using device; one dose = 2 inhalations Culturelle 15 billion cell capsule, sprinkle 1 cap PO DAILY valacyclovir 500 mg tablet 500 mg PO DAILY Patient Comments: TAKE 1 TABLET BY MOUTH THREE TIMES DAILY DIRECTED ibuprofen 400 mg tablet 400 mg PO Q6H PRN (Reason: pain) vitamin E (dl, acetate) 180 mg (400 unit) capsule 180 mg PO DAILY Tagrisso 80 mg tablet 80 mg PO DAILY carvedilol 25 mg tablet 12.5 mg PO BID Rx Instructions: must administer with a meal/food ondansetron 8 mg tablet,disintegrating 8 mg PO Q8H PRN (Reason: nausea and vomiting) Qty: 30 2RF lidocaine-prilocaine 2.5-2.5 % cream 1 applic topical ONCE PRN (Reason: port access) 30 Days Qty: 30 2RF dexamethasone 4 mg tablet 4 mg PO .COMPLEX Qty: 40 0RF Rx Instructions: 4 mg orally twice a day ONLY the day before, the day of, and the day after chemotherapy folic acid 1 mg tablet 1 mg PO DAILY Qty: 90 1RF albuterol sulfate [Ventolin HFA] 90 mcg/actuation HFA aerosol inhaler 2 puff inhalation Q6H PRN (Reason: shortness of breath or wheezing) Qty: 6.7 0RF multivitamin with folic acid 1 TABLET tablet 1 tab PO DAILY Patient Comments: supplement cholecalciferol (vitamin D3) 1,000 UNIT tablet 1,000 unit PO DAILY prednisone 20 mg tablet 40 mg PO DAILY Qty: 9 0RF Rx Instructions: two per day for 3 days, then one daily for 3 days, then stop dicyclomine 20 mg tablet 20 mg PO 4X/DAY furosemide 20 mg tablet 20 mg PO DAILY pantoprazole 40 mg tablet,delayed release (/EC) 40 mg PO DAILY Qty: 30 4RF colestipol 1 gram tablet 2 g PO BID 30 Days Qty: 120 2RF Primary Care Provider: Vlad Dennis Referrals: Vlad Dennis MD [Primary Care Provider] - Print Language: Mohawk
--- NOTE | 2023-11-30 13:04 | RAD_ITS ---
HISTORY: dyspnea. TECHNIQUE: XR Chest 1 View. COMPARISON: 11/27/2023. FINDINGS: LINES/TUBES: Right chest wall port again seen. CARDIOMEDIASTINAL BORDERS: Stable with right hilar opacity. LUNGS: Hyperinflated with irregular nodular and fibrotic opacities of the right apex, left upper lobe, and perihilar regions. Mild bibasilar atelectasis or inflammation unchanged. PLEURA: Trace pleural effusions again noted. RAD/Chest 1 View (Portable) IMPRESSION: No significant interval change. Electronically Signed: Kyara Watson MD at 13:33 EDT ,
[2023-11-30 13:08] LABS: Absolute Lymphocyte Count 0.15 X10^3/uL (0.83-4.51); Absolute Neutrophil Count 1.3 X10^3/uL (2.0-7.7); Hemoglobin 9.1 g/dL (12.0-15.0); Lymphocyte # 0.15 X10^3/ul (0.83-4.51); Lymphocyte % 9.5 % (19-41); Mean Corp Hgb Conc 32.5 g/dL (32-36); Mean Corpuscular Hgb 29.9 pg (27.0-32.0); Mean Corpuscular Volume 92.1 fL (81-99); Monocyte# 0.08 X10^3/uL; Monocyte% 5.1 % (0-10); NRBC Flagged by Analyzer 0 % (0-5); Neutrophil # 1.32 X10^3/uL (2.7-7.7); Neutrophil % 83.5 % (47-70); POSITIVE DIFFERENTIAL YES; POSITIVE MORPHOLOGY YES; Platelet Count 130 K/mm3 (150-450); RBC Distribution Width CV 20.7 % (11.6-14.6); RBC Distribution Width SD 67.8 fl (35.1-43.9); Red Blood Count 3.04 M/mm3 (4.2-5.4); White Blood Count 1.6 K/mm3 (4.4-11.0)
[2023-11-30 13:10] LABS: Differential Indicated SCAN CRITERIA MET
[2023-11-30 13:15] LABS: International Normalized Ratio 1.1; Prothrombin Time (Protime)PT. 14.2 SECONDS (11.7-14.9)
[2023-11-30 13:16] LABS: Partial Thromboplast Time 26.4 Seconds (24.1-36.2)
[2023-11-30 13:29] LABS: BNP,B-Type NATRIURETIC PEPTIDE 1870.2 pg/mL (0-100)
[2023-11-30 13:32] LABS: Lactic Acid 0.7 mmol/L (0.4-1.9)
[2023-11-30 13:33] LABS: AST(SGOT) 32 U/L (15-37); Alanine Aminotransfer ALT/SGPT 20 U/L (13-56); Albumin, Serum 2.8 g/dL (3.2-5.0); Alkaline Phosphatase 72 U/L (45-117); Anion Gap 8 (5-15); BUN 21 mg/dL (7-18); BUN/Creat Ratio 21.5 RATIO (10-20); Bilirubin, Direct 0.19 mg/dL (0.00-0.30); Calcium,Total 8.2 mg/dL (8.5-10.1); Chloride 99 mmol/L (98-107); Creatinine, Serum 0.98 mg/dL (0.55-1.02); EST Glomerular Filtration Rate 59 mL/min (>60); Est Glom Filt Rate - Afr Amer 71 mL/min (>60); Globulin 3.2 g/dL (2.2-4.2); Glucose 143 mg/dL (74-106); Lipase 15 U/L (13-75); Potassium 3.5 mmol/L (3.5-5.1); Sodium Level 134 mmol/L (136-145); Troponin-I HS 23 pg/mL (3.0-54.0)
[2023-11-30 13:41] LABS: Anisocytosis 1+
[2023-11-30] MEDS: Furosemide 100 MG/10 ML Vial 60 MG IV (13:49)
[2023-11-30] MEDS: Potassium Chloride Oral Tablet 20 MEQ PO (17:08)
[2023-11-30] MEDS: Losartan Potassium 50 MG Tablet PO (17:08)
[2023-11-30] MEDS: Carvedilol 12.5 MG Tablet PO (17:10)
[2023-11-30] MEDS: Furosemide 20 MG/2 ML VIAL IV (17:11)
[2023-11-30] MEDS: TBO-FILGRASTIM 300 MCG/0.5 ML ML SC (17:15)
[2023-11-30] MEDS: Loperamide 2 MG Capsule PO (18:25)
--- NOTE | 2023-11-30 18:41 | HP.PCM.HOS_ITS ---
HPI - General General Date of Admission: 11/30/23 Date of Service: 11/30/23 Chief Complaint: Shortness of breath HPI Narrative GEE LAURA, is a 78 F who presents to the emergency room at [facility] complaining of shortness of breath, she had been recently hospitalized for an exacerbation of COPD from rhinovirus infection, she was discharged on no oxygen. Patient states she is unable to bring up phlegm, she denies any fever or chills. Patient recently had an echocardiogram showed a reduced ejection fraction of 35%. Workup in the emergency room included labs which revealed an elevated beta natruretic peptide, patient had a CBC which showed an absolute neutrophil count of 1300, platelet count was low at 130,000, patient's hemoglobin was 9.1. I talked with oncology about the patient's care, her last chemotherapy treatment was November 21, 2023. Patient's chest x-ray was unchanged from her recent admission. I feel it is likely patient has mild congestive heart failure, she will be admitted to PCU and receive IV Lasix, labs will be monitored, I elected to give her 1 dose of Granix. [facility] Medical History DVT (deep venous thrombosis) HTN (hypertension) Vision changes Shortness of breath Hypokalemia Weight loss Pulmonary embolism Pneumonia Immunotherapy encounter Chemotherapy management, encounter for Wears glasses Wears dentures Cancer Alcohol use History of pulmonary embolus (PE) History of hepatitis A virus infection Gastric reflux Former smoker Shortness of breath on exertion History of tachycardia History of stress test History of echocardiogram Cardiology follow-up encounter Encounter for vitamin B12 injection while on pemetrexed chemotherapy Encounter for insertion of venous access port Diarrhea Encounter for monitoring cardiotoxic drug therapy Anemia Exertional dyspnea Headache COPD with exacerbation Dyspepsia and disorder of function of stomach Hydronephrosis with ureteral calculus NSCLC of left lung Essential hypertension Encounter for education Pleural effusion, left History of lung cancer in adulthood Lung nodule < 6cm on CT Sinus tachycardia Raynauds disease Chest pain COPD (chronic obstructive pulmonary disease) Lung mass Colitis Exertional dyspnea Skin cancer Hepatitis A Non-small cell lung cancer (NSCLC) Bilateral pulmonary embolism (11/06/14) Lung cancer Anxiety Ulcerative colitis Home Medications ?Medication ?Instructions ?Recorded ?Last Taken ?Type multivitamin with folic acid 400 1 tab PO DAILY SUPPLEMENT 09/16/14 11/29/23 History mcg tablet cholecalciferol (vitamin D3) 25 1,000 unit PO DAILY supplement 05/04/19 11/29/23 History mcg (1,000 unit) tablet tiotropium bromide 18 mcg capsule 2 cap inhalation DAILY COPD 02/11/20 11/29/23 History with inhalation device (Spiriva with HandiHaler) Lactobacillus rhamnosus GG 15 1 cap PO DAILY probiotic 12/29/20 11/29/23 History billion cell sprinkle capsule (Culturelle) valacyclovir 500 mg tablet 500 mg PO DAILY viral infection 05/31/22 11/29/23 History vitamin E (dl, acetate) 180 mg 180 mg PO DAILY vitamin 02/22/23 11/29/23 History (400 unit) capsule osimertinib 80 mg tablet (Tagrisso) 80 mg PO DAILY cancer 06/18/23 11/29/23 History carvedilol 25 mg tablet 12.5 mg PO BID blood pressure 07/05/23 11/30/23 History dexamethasone 4 mg tablet 4 mg PO .COMPLEX infammation #40 09/12/23 11/26/23 Rx tabs folic acid 1 mg tablet 1 mg PO DAILY supplement #90 tabs 09/12/23 11/29/23 Rx lidocaine-prilocaine 2.5 %-2.5 % 1 applic topical ONCE PRN port 09/12/23 Unknown Rx topical cream access 30 days #30 grams ondansetron 8 mg disintegrating 8 mg PO Q8H PRN nausea and 09/12/23 Unknown Rx tablet vomiting #30 tabs pantoprazole 40 mg tablet,delayed 40 mg PO DAILY reflux #30 tabs 09/27/23 11/29/23 Rx release colestipol 1 gram tablet 2 g (2 x 1 gram) PO BID 10/14/23 11/30/23 Rx cholesterol 30 days #120 tabs albuterol sulfate 90 mcg/actuation 2 puff inhalation Q6H PRN 10/18/23 11/29/23 Rx aerosol inhaler (Ventolin HFA) shortness of breath or wheezing #6.7 grams prednisone 20 mg tablet 40 mg (2 x 20 mg) PO DAILY #9 tabs 11/28/23 11/30/23 Rx calcium carbonate (Oyster Shell 1,000 mg PO DAILY 11/30/23 11/30/23 History Calcium) furosemide 20 mg tablet 20 mg PO DAILY 11/30/23 11/30/23 History Allergy/AdvReac Type Severity Reaction Status Date / Time adhesive tape Allergy Itching Verified 11/30/23 11:51 ipratropium (From Atrovent) Allergy Rash Verified 11/30/23 11:51 terbinafine HCl (From Allergy Rash Verified 11/30/23 11:51 Lamisil) lactose AdvReac Upset Verified 11/30/23 11:51 Stomach Family History Father Liver disease Mother Uterine cancer Brother Myocardial infarction, Onset Age: 60 Surgical History S/P IVC filter History of colonoscopy Malignant pleural effusion (02/07/23) ulnar nerve release left elbow History of thoracentesis EBUS guided biopsy History of bronchoscopy History of tonsillectomy History of hysterectomy H/O hernia repair Hx of cholecystectomy History of appendectomy Social History Smoking Status: Former smoker Tobacco: How many years used: 40 second hand exposure: No alcohol intake: never details: occasionally substance use type: does not use ROS Constitutional Constitutional: Denies anorexia, change in weight, chills, fever(s), night sweats or weakness Eyes Eyes: Denies blurry vision, change in vision, discharge from eye(s) or eye pain Cardiovascular Cardiovascular: Denies chest pain, claudication, edema or palpitations Respiratory/Chest Respiratory/Chest: Reports dyspnea, shortness of breath at rest and shortness of breath with exertion; Denies cough or hemoptysis Gastrointestinal Gastrointestinal: Denies abdominal pain, constipation, diarrhea, hematemesis, hematochezia, melena, nausea or vomiting Genitourinary Genitourinary: Denies dysuria, hematuria, urinary frequency, urinary hesitancy, urinary incontinence or urinary urgency Musculoskeletal Musculoskeletal: Denies back pain, joint pain, joint stiffness, joint swelling, myalgias or neck pain Neurologic Neurologic: Denies abnormal gait, abnormal speech, dizziness, focal weakness, headache(s), loss of vision, numbness, other visual disturbances, paresthesias, syncope or tingling Psychiatric Psychiatric: Denies anxiety, cognitive impairment, depression, irritability, mood swings or suicidal ideation Endocrine Endocrinology: Denies change in body appearance, cold intolerance, excessive sweating, heat intolerance, polydipsia or polyuria Hematologic/Lymphatic Hematologic/Lymphatic: Denies none, anemia, easy bleeding, easy bruising or lymphadenopathy Allergic/Immunologic Allergic/Immunologic: Denies rhinitis, urticaria, eczemia or asthma Vital Signs Vital Signs Vital Signs: 11/30/23 11:51 11/30/23 11:51 11/30/23 12:26 Temperature 98 F Temperature Source Temporal Pulse Rate 130 H 128 H Respiratory Rate 18 18 Respiratory Effort Respiratory Depth Respiratory Pattern Blood Pressure 145/79 H 142/95 H Blood Pressure Mean 101 110 Blood Pressure Source Blood Pressure Position Blood Pressure Location Pulse Ox 91 90 98 Oxygen Delivery Method Room Air Room Air Nasal Cannula Oxygen Flow Rate (L/min) 2 11/30/23 12:26 11/30/23 13:10 11/30/23 13:50 Temperature Temperature Source Pulse Rate 116 H 108 H Respiratory Rate 22 H 20 H Respiratory Effort Short of Breath Respiratory Depth Respiratory Pattern Tachypnea Tachypnea Blood Pressure 112/73 Blood Pressure Mean 86 Blood Pressure Source Blood Pressure Position Blood Pressure Location Pulse Ox 96 Oxygen Delivery Method Nasal Cannula Nasal Cannula Oxygen Flow Rate (L/min) 3 3 11/30/23 14:28 11/30/23 15:08 11/30/23 18:00 Temperature 98 F 97.3 F L Temperature Source Temporal Pulse Rate 112 H 111 H Respiratory Rate 20 H 20 H Respiratory Effort Labored Accessory Muscle Use Respiratory Depth Shallow Respiratory Pattern Tachypnea Blood Pressure 118/78 124/80 H Blood Pressure Mean 91 94 Blood Pressure Source Monitor Blood Pressure Position Supine Blood Pressure Location Right Arm Pulse Ox 95 99 Oxygen Delivery Method Nasal Cannula Nasal Cannula Oxygen Flow Rate (L/min) 2 2 Weight Weight: 43.545 kg Body Mass Index (BMI) 17.5 Physical Exam Const alert, oriented x3 and no apparent distress General Appearance: cooperative, well kempt and well developed Orientation / Consciousness: awake, oriented to person, oriented to place and oriented to time HEENT normocephalic, head/scalp atraumatic and moist oral mucous membranes Eyes PERRL, EOMs intact bilaterally and conjunctivae normal Neck supple, no JVD and thyroid normal General: trachea midline Resp normal respiratory effort, no retractions and no use of accessory muscles Resp Narrative: Patient has expiratory rhonchi bilaterally Auscultation: rhonchi throughout; Negative for rales or wheezes Cardio regular rate, regular rhythm, S1 normal heart sound, S2 normal heart sound, no murmurs, no rub and no gallops Cardio Narrative: Patient is tachycardic GI normal to inspection, nondistended, normoactive bowel sounds, soft to palpation, non-tender and non-distended Extremity no clubbing, cyanosis or edema Skin no rashes or lesions noted General Skin Exam: no breakdown Neuro oriented x3, CN's II-XII intact bilaterally, no focal motor deficits and no sensory deficits noted Sensorium / Orientation: awake and alert Speech: speech normal Psych affect normal Results Lab / Micro Data 11/30/23 12:57 11/30/23 12:57 Labs: Laboratory Results - last 24 hr 11/30/23 12:57: WBC 1.6 L, RBC 3.04 L, Hgb 9.1 L, Hct 28.0 L, MCV 92.1, MCH 29.9, MCHC 32.5, RDW Std Deviation 67.8 H, RDW Coeff of Hiram 20.7 H, Plt Count 130 L, MPV 10.0, Immature Gran % (Auto) 1.900 H, Neut % (Auto) 83.5 H, Lymph % (Auto) 9.5 L, Granite % (Auto) 5.1, Eos % (Auto) 0.0, Baso % (Auto) 0.0, Absolute Neuts (auto) 1.3 L, Absolute Lymphs (auto) 0.15 L, Nucleated RBC % 0, Diff Path Review May foll, Anisocytosis 1+, PT 14.2, INR 1.1, APTT 26.4, Sodium 134 L, Potassium 3.5, Chloride 99, Carbon Dioxide 27.0, Anion Gap 8, BUN 21 H, Creatinine 0.98, Est GFR (MDRD) Af Amer 71, Est GFR (MDRD) Non-Af 59 L, B UN/Creatinine Ratio 21.5 H, Glucose 143 H, Lactic Acid 0.7, Calcium 8.2 L, Total Bilirubin 0.50, Direct Bilirubin 0.19, AST 32, ALT 20, Alkaline Phosphatase 72, Troponin I High Sens 23, B-Natriuretic Peptide 1870.2 H, Total Protein 6.0 L, A lbumin 2.8 L, Globulin 3.2, Lipase 15 Imaging Radiology Impression Chest X-Ray 11/30/23 13:04 IMPRESSION: No significant interval change. Electronically Signed: Kyara Watson MD at 13:33 EDT Reading Location ID and State: [facility] / [place] Tel , Service support , Assessment & Plan Assessment/Plan (1) COPD (chronic obstructive pulmonary disease): PLAN: Plan 1. Acute systolic congestive heart failure-patient will be admitted to PCU, she was placed on IV Lasix at 20 mg every 12 hours, I was cautioned by oncology not to over diurese the patient due to her chemotherapy she had recently. #2 chronic-pulse ox will be monitored-I have elected to place the patient on DuoNeb aerosols and Pulmicort aerosols, I will hold off placing her on IV corticosteroids at this time #3 leukopenia secondary to chemotherapy-I have decided to give the patient 1 dose of Granix, labs will be monitored #4 non-small cell lung cancer-patient is chronically getting chemotherapy and immunotherapy. Labs will be monitored #5 hypoxia secondary to #1 on a backdrop of chronic obstructive pulmonary disease-complicates care, management, recovery, and prognosis, pulse ox will be monitored #6 thrombocytopenia secondary to chemotherapy-Labs will be monitored #7 anemia secondary to chemotherapy-Labs will be monitored, patient does not need transfused at this time Total clinical time spent by myself addressing patient's medical issues, reviewing all of her data, and collaborating with patient's care team: 75 minutes Charges/Coding Visit Charges Inpatient E&M: 79096 Init Hosp L3
[2023-11-30] MEDS: Acetaminophen 325 MG Tablet 650 MG PO (20:35)
[2023-11-30] MEDS: Colestipol 1 GM TABLET 2 GM PO (20:35)
[2023-11-30] MEDS: Acyclovir 200 MG Capsule 400 MG PO (20:35)
[2023-11-30] MEDS: guaiFENesin 1,200 MG Tablet 1200 MG PO (20:35)
[2023-11-30] MEDS: Temazepam 15 MG Capsule PO (20:35)
[2023-12-01] VITALS (24 sets, daily range): BP systolic 79–136; BP diastolic 47–90; PULSE 106–137; RESP 12–34; TEMP 36.2–38.8; O2SAT 91–100; BMI 17.4; BMI 17.6
[2023-12-01] MEDS: Ipratropium/Albuterol Sulfate 3 ML AMPUL.NEB INHALATION ×3 (06:58→21:00)
[2023-12-01] MEDS: Budesonide Respules 0.5 MG/2 ML AMPUL.NEB. INHALATION (06:58)
[2023-12-01 07:43] LABS: Mean Corp Hgb Conc 32.3 g/dL (32-36); Mean Corpuscular Hgb 30.1 pg (27.0-32.0); Mean Corpuscular Volume 93.4 fL (81-99); Mean Platelet Vol. 11.1 fl (6.2-12.0); POSITIVE COUNT YES; POSITIVE DIFFERENTIAL YES; POSITIVE MORPHOLOGY YES; Platelet Count 107 K/mm3 (150-450); RBC Distribution Width CV 20.9 % (11.6-14.6); Red Blood Count 3.32 M/mm3 (4.2-5.4); White Blood Count 1.6 K/mm3 (4.4-11.0)
[2023-12-01 07:49] LABS: Anion Gap 3 (5-15); BUN 22 mg/dL (7-18); BUN/Creat Ratio 17.7 RATIO (10-20); Calcium,Total 8.7 mg/dL (8.5-10.1); Chloride 97 mmol/L (98-107); Creatinine, Serum 1.24 mg/dL (0.55-1.02); EST Glomerular Filtration Rate 45 mL/min (>60); Est Glom Filt Rate - Afr Amer 54 mL/min (>60); Estimated Creatinine Clearance 25.97 ml/min; Glucose 95 mg/dL (74-106); Potassium 3.8 mmol/L (3.5-5.1); Sodium Level 134 mmol/L (136-145)
[2023-12-01 07:53] LABS: Differential Indicated MANUAL DIFF
[2023-12-01] MEDS: Folic Acid 1 MG Tablet PO (07:57)
[2023-12-01] MEDS: Potassium Chloride Oral Tablet 20 MEQ PO (07:57)
[2023-12-01] MEDS: Carvedilol 12.5 MG Tablet PO ×2 (07:57→16:12)
[2023-12-01 08:20] LABS: Anisocytosis 1+; Hypochromasia 1+; Lymphocyte 10 % (19-41); Monocyte 6 % (0-10); Myelocyte 1 % (0-0); Neutrophil-Band 5 % (0-5); Neutrophil-Segmented 78 % (47-70); Platelet Estimate SLT DEC (ADEQ); Total Cells Counted 100 (MANUAL DIFF)
[2023-12-01 08:21] LABS: Absolute Lymphocyte Count 0.15 X10^3/uL (0.83-4.51); Absolute Neutrophil Count 1.3 X10^3/uL (2.0-7.7); Lymphocyte # 0.15 X10^3/ul (0.83-4.51); Neutrophil # 1.31 X10^3/uL (2.7-7.7)
[2023-12-01] MEDS: Acetaminophen 325 MG Tablet 650 MG PO ×2 (09:45→18:19)
[2023-12-01] MEDS: Furosemide 20 MG/2 ML VIAL IV (09:45)
[2023-12-01] MEDS: Acyclovir 200 MG Capsule 400 MG PO ×2 (09:45→20:39)
[2023-12-01] MEDS: guaiFENesin 1,200 MG Tablet 1200 MG PO ×2 (09:45→20:41)
[2023-12-01] MEDS: Lactobacillis Acidophilus 1 CAP PO (09:46)
[2023-12-01] MEDS: Calcium (Elemental) 500 MG Tablet 1000 MG PO (09:46)
[2023-12-01] MEDS: Colestipol 1 GM TABLET 2 GM PO ×2 (09:46→20:40)
[2023-12-01] MEDS: Pantoprazole Sodium 40 MG Tablet PO (09:46)
[2023-12-01] MEDS: Cholecalciferol (VIT D3) 25 MCG TABLET (1,000 UNITS) PO (09:47)
[2023-12-01] MEDS: Loperamide 2 MG Capsule PO (10:07)
--- NOTE | 2023-12-01 14:56 | PN.HOSP_ITS ---
Reason for Visit Reason for Visit: Diagnoses Chronic obstructive pulmonary disease, unspecified (11/30/23) Subjective Subjective Patient was seen and examined today, her blood pressure is low today, I have elected to stop her diuretics until tomorrow and then resume it orally. Patient's losartan was held today, she remains on Coreg. I have elected to give her a small fluid bolus today due to the hypotension, she remains on DuoNeb aerosols as well as Pulmicort aerosols, white count remains low today with an absolute neutrophil count of 1300. Objective Data Objective Data Vital Signs: Vital Signs Temp Pulse Resp BP Pulse Ox O2 Del Method O2 Flow Rate 99.9 F H 123 H 24 H 79/47 L 93 Nasal Cannula 2 12/01/23 14:44 12/01/23 14:44 12/01/23 14:44 12/01/23 14:44 12/01/23 14:44 12/01/23 14:44 12/01/23 14:44 Oxygen Flow Rate (L/min) 2 Oxygen Delivery Method Nasal Cannula Weight: 43.6 kg Body Mass Index (BMI) 17.6 Intake & Output: Intake and Output for Last 24 Hours 11/29/23 11/30/23 12/01/23 23:59 23:59 23:59 Intake Total 240 / 480 435 / 435 Output Total 800 / 1500 1500 / 1500 Balance -560 / -1020 -1065 / -1065 Lab / Micro Data 12/01/23 06:10 12/01/23 06:10 Labs: Laboratory Results - last 24 hr 12/01/23 06:10: WBC 1.6 L, RBC 3.32 L, Hgb 10.0 L, Hct 31.0 L, MCV 93.4, MCH 30.1, MCHC 32.3, RDW Std Deviation 69.0 H, RDW Coeff of Hiram 20.9 H, Plt Count 107 L, MPV 11.1, Neut % (Auto) Not Reportable, Absolute Neuts (auto) 1.3 L, A bsolute Lymphs (auto) 0.15 L, Total Counted 100, Neutrophils % (Manual) 78 H, Band Neutrophils % 5, Lymphocytes % (Manual) 10 L, Monocytes % (Manual) 6, M yelocytes % 1 H, Diff Path Review November, Platelet Estimate SLT DEC, Hypochromasia 1+, Anisocytosis 1+, Sodium 134 L, Potassium 3.8, Chloride 97 L, C arbon Dioxide 34.0 H, Anion Gap 3 L, BUN 22 H, Creatinine 1.24 H, Estim Creat Clear Calc 25.97, Est GFR (MDRD) Af Amer 54 L, Est GFR (MDRD) Non-Af 45 L, BUN/Creatinine Ratio 17.7, Glucose 95, Calcium 8.7 Physical Exam Narrative alert, oriented x3 and no apparent distress General Appearance: cooperative, well kempt and well developed Orientation / Consciousness: awake, oriented to person, oriented to place and oriented to time HEENT normocephalic, head/scalp atraumatic and moist oral mucous membranes Eyes PERRL, EOMs intact bilaterally and conjunctivae normal Neck supple, no JVD and thyroid normal General: trachea midline Resp normal respiratory effort, no retractions and no use of accessory muscles Resp Narrative: Patient has expiratory rhonchi bilaterally Auscultation: Patient has scattered expiratory rhonchi, no wheezing is noted Cardio regular rate, regular rhythm, S1 normal heart sound, S2 normal heart sound, no murmurs, no rub and no gallops Cardio Narrative: Patient is tachycardic GI normal to inspection, nondistended, normoactive bowel sounds, soft to palpation, non-tender and non-distended Extremity no clubbing, cyanosis or edema Skin no rashes or lesions noted General Skin Exam: no breakdown Neuro oriented x3, CN's II-XII intact bilaterally, no focal motor deficits and no sensory deficits noted Sensorium / Orientation: awake and alert Speech: speech normal Psych affect normal Assessment & Plan Assessment/Plan (1) COPD (chronic obstructive pulmonary disease): PLAN: Plan 1. Acute systolic congestive heart failure-patient's Lasix and losartan is being held due to her hypotension, I plan to resume her diuretics tomorrow orally #2 Chronic obstructive pulmonary disease-pulse ox will be monitored-I have elected to place the patient on DuoNeb aerosols and Pulmicort aerosols, I will hold off placing her on IV corticosteroids at this time, I have decided to have pulmonary medicine see the patient in consultation tomorrow #3 leukopenia secondary to chemotherapy-patient was given 1 dose of Granix yesterday subcu, labs will be monitored, absolute neutrophil count has not fallen below thousand #4 non-small cell lung cancer-patient is chronically getting chemotherapy and immunotherapy. Labs will be monitored #5 hypoxia secondary to #1 on a backdrop of chronic obstructive pulmonary disease-complicates care, management, recovery, and prognosis, pulse ox will be monitored #6 thrombocytopenia secondary to chemotherapy-Labs will be monitored #7 anemia secondary to chemotherapy-Labs will be monitored, patient does not need transfused at this time #8 hypotension-possibly the result of diuresis, I will give the patient a small fluid bolus and monitor her blood pressure, patient is asymptomatic at this time Total clinical time spent by myself addressing patient's medical issues, reviewing all of her data, and collaborating with patient's care team: 35 minutes Charges/Coding Visit Charges Inpatient E&M: 56645 Subs Hosp L2
[2023-12-01] MEDS: 0.9% Normal Saline (250mL Bag) 250 ML 999 ML IV (15:00)
--- NOTE | 2023-12-01 16:03 | RAD_ITS ---
STUDY: XR Chest 1 View 12/01/2023 4:00 PM REASON FOR EXAM: Female, 78 years old. hypoxia COMPARISON: Study done yesterday TECHNIQUE: XR Chest 1 View FINDINGS: There is no demonstrated pleural abnormality. Right ported catheter. Left apical scarring or mass. Prominent right hilum or mass. Normal heart size. Normal mediastinum. Normal aleja. Prominent appearing increased interstitial lung markings. Normal visualized pulmonary arteries. There is atherosclerotic calcification of the aortic arch with tortuosity. There are diffuse degenerative changes of the visualized thoracic spine. There is degenerative osteoarthritis of the bilateral shoulders. There are no acute findings of the upper abdomen. RAD/Chest 1 View (Portable) IMPRESSION: There are no acute findings. Electronically Signed: Junior Mcwilliams MD at 16:58 EDT ,
[2023-12-01] MEDS: Temazepam 15 MG Capsule PO (20:47)
--- NOTE | 2023-12-01 23:34 | PCM.HOSP.N ---
Hospitalist Note Notified of low BP. Review of records show that she had hypotension earlier today and her losartan dose was held, though she still did receive her carvedilol 12.5 BID. She did receive IV furosemide. Creatinine is up. She did receive 250cc bolus of IVF today. Will give an additional 500cc tonight. In the meantime, dc furosemide, losartan and I placed hold parameters on her carvedilol.
[2023-12-01] MEDS: 0.9% Normal Saline (1000mL) 1,000 ML 250 ML IV (23:50)
[2023-12-02] VITALS (19 sets, daily range): BP systolic 89–112; BP diastolic 55–70; PULSE 14–126; RESP 12–35; TEMP 36.2–36.8; O2SAT 94–100; BMI 17.6
[2023-12-02] MEDS: Ipratropium/Albuterol Sulfate 3 ML AMPUL.NEB INHALATION ×3 (06:48→19:41)
[2023-12-02 06:53] LABS: Absolute Lymphocyte Count 0.13 X10^3/uL (0.83-4.51); Absolute Neutrophil Count 0.7 X10^3/uL (2.0-7.7); Basophil# 0.02 X10^3/uL; Basophil% 2.1 % (0-1); Hematocrit 28.2 % (37-47); Hemoglobin 8.8 g/dL (12.0-15.0); Lymphocyte # 0.13 X10^3/ul (0.83-4.51); Lymphocyte % 13.7 % (19-41); Mean Corp Hgb Conc 31.2 g/dL (32-36); Mean Corpuscular Hgb 29.4 pg (27.0-32.0); Mean Corpuscular Volume 94.3 fL (81-99); Mean Platelet Vol. 11.3 fl (6.2-12.0); Monocyte% 10.5 % (0-10); NRBC Flagged by Analyzer 0 % (0-5); Neutrophil # 0.68 X10^3/uL (2.7-7.7); Neutrophil % 71.6 % (47-70); POSITIVE COUNT YES; POSITIVE DIFFERENTIAL YES; POSITIVE MORPHOLOGY YES; Platelet Count 64 K/mm3 (150-450); RBC Distribution Width CV 20.2 % (11.6-14.6); RBC Distribution Width SD 68.8 fl (35.1-43.9); Red Blood Count 2.99 M/mm3 (4.2-5.4)
[2023-12-02 07:10] LABS: Anion Gap 6 (5-15); BUN 28 mg/dL (7-18); BUN/Creat Ratio 23.3 RATIO (10-20); Calcium,Total 8.8 mg/dL (8.5-10.1); Chloride 97 mmol/L (98-107); EST Glomerular Filtration Rate 46 mL/min (>60); Est Glom Filt Rate - Afr Amer 56 mL/min (>60); Estimated Creatinine Clearance 27.02 ml/min; Glucose 164 mg/dL (74-106); Potassium 4.1 mmol/L (3.5-5.1); Sodium Level 133 mmol/L (136-145)
[2023-12-02 07:45] LABS: Differential Indicated SCAN CRITERIA MET
[2023-12-02] MEDS: Cholecalciferol (VIT D3) 25 MCG TABLET (1,000 UNITS) PO (09:15)
[2023-12-02] MEDS: Calcium (Elemental) 500 MG Tablet 1000 MG PO (09:17)
[2023-12-02] MEDS: Potassium Chloride Oral Tablet 20 MEQ PO ×2 (09:18→17:04)
[2023-12-02] MEDS: Folic Acid 1 MG Tablet PO (09:18)
--- NOTE | 2023-12-02 09:46 | PCM.PN.HOSP ---
Reason for Visit Reason for Visit: Diagnoses Chronic obstructive pulmonary disease, unspecified (11/30/23) Subjective Subjective Patient is a 78-year-old lady with underlying history of non-small cell lung CA currently on chemo and immunotherapy readmitted 2 days following her recent hospitalization with increasing dyspnea and shortness of breath. Diagnosed with acute on chronic congestive heart failure admitted to a monitored bed for subsequent management Objective Data Objective Data Vital Signs: Vital Signs Temp Pulse Resp BP Pulse Ox O2 Del Method O2 Flow Rate 97.4 F L 116 H 28 H 102/67 96 Nasal Cannula 2 12/02/23 09:10 12/02/23 09:10 12/02/23 09:10 12/02/23 09:10 12/02/23 09:10 12/02/23 09:10 12/02/23 09:10 FiO2 35 12/02/23 08:24 Oxygen Flow Rate (L/min) 2 Oxygen Delivery Method Nasal Cannula Weight: 43.6 kg Body Mass Index (BMI) 17.6 Intake & Output: Intake and Output for Last 24 Hours 11/30/23 12/01/23 12/02/23 23:59 23:59 23:59 Intake Total 240 / 480 925 / 1045 620 / 620 Output Total 800 / 1500 1500 / 1500 0 / 0 Balance -560 / -1020 -575 / -455 620 / 620 Lab / Micro Data 12/02/23 06:02 12/02/23 06:02 Labs: Laboratory Results - last 24 hr 12/02/23 06:02: WBC 1.0 L*, RBC 2.99 L, Hgb 8.8 L, Hct 28.2 L, MCV 94.3, MCH 29.4, MCHC 31.2 L, RDW Std Deviation 68.8 H, RDW Coeff of Hiram 20.2 H, Plt Count 64 L, MPV 11.3, Immature Gran % (Auto) 2.100 H, Neut % (Auto) 71.6 H, Lymph % (Auto) 13.7 L, [place] % (Auto) 10.5 H, Eos % (Auto) 0.0, Baso % (Auto) 2.1 H, Absolute Neuts (auto) 0.7 L, Absolute Lymphs (auto) 0.13 L, Nucleated RBC % 0, Differential Comment , Diff Path Review November, Sodium 133 L, Potassium 4.1, Chloride 97 L, Carbon Dioxide 30.0, Anion Gap 6, BUN 28 H, Creatinine 1.20 H, Estim Creat Clear Calc 27.02, Est GFR (MDRD) Af Amer 56 L, Est GFR (MDRD) Non-Af 46 L, BUN/Creatinine Ratio 23.3 H, Glucose 164 H, Calcium 8.8 Radiography Diagnostic Testing: Radiology Impression Chest X-Ray 12/01/23 16:03 IMPRESSION: There are no acute findings. Electronically Signed: Junior Mcwilliams MD at 16:58 EDT , Physical Exam Narrative GENERAL: Appears ill looking and pale HEENT: Atraumatic; normocephalic EYES; Anicteric, Normal Conjunctiva NECK; supple, normal thyroid, RESPIRATORY: Diminished to auscultation CARDIOVASCULAR: Regular S1 S2, GI: soft, normoactive bowel sounds, : No Renal angle tenderness; EXTREMITIES: No edema, no clubbing, MUSCULOSKELETAL: no muscle wasting NEURO: Awake; no lateralizing signs. SKIN: No Rash PSYCH; Flat affect Assessment & Plan Assessment/Plan (1) COPD (chronic obstructive pulmonary disease): PLAN: Plan Patient is a 78-year-old lady with underlying history of non-small cell lung CA currently on chemo and immunotherapy readmitted 2 days following her recent hospitalization with increasing dyspnea and shortness of breath. Diagnosed with acute on chronic congestive heart failure admitted to a monitored bed for subsequent management 1. Acute on chronic congestive heart failure with reduced ejection fraction ? Managed with strict input and output, low-sodium diet, daily weight, fluid restriction as well as IV diuretic therapy. 2D echo from 11/28/2023 demonstrated EF of 35% with moderate to severe global hypokinesis of the left ventricle. 2. COPD ? Complicating patient care ordered aerosol treatment as needed 3. Non-small cell lung CA ? Patient is on chemo and immunotherapy as outpatient 4. Chemo induced pancytopenia ? WBC count is 1.0, hemoglobin 8.8, platelet count 64 monitoring with daily CBC 5. GERD ? On PPI 6. Hypertension ? Patient is on carvedilol currently being held given relatively low blood pressure 7. Recently diagnosed acute pulmonary embolism ? Patient did not tolerate systemic anticoagulation due to GI bleed patient underwent IVC filter placement on 09/25/2023 8. Physical deconditioning ? Requested for PT OT eval and social media job titles to assist with discharge planning 9. DVT prophylaxis ? Patient has an IVC filter Time spent in the patient's overall evaluation,decision-making process, review of diagnostic data, adjustment of management, discussion with other providers, nursing nursing and ancillary staff involved in patient's care documentation, 53 Minutes Charges/Coding Visit Charges Inpatient E&M: 11330 [facility] Hosp L3
[2023-12-02] MEDS: Pantoprazole Sodium 40 MG Tablet PO (10:12)
[2023-12-02] MEDS: guaiFENesin 1,200 MG Tablet 1200 MG PO (10:12)
[2023-12-02] MEDS: Lactobacillis Acidophilus 1 CAP PO (10:12)
[2023-12-02] MEDS: Acyclovir 200 MG Capsule 400 MG PO ×2 (12:08→21:20)
[2023-12-02 13:27] LABS: Pathologist Review Reviewed
[2023-12-02 13:30] LABS: Pathologist Review Reviewed
--- NOTE | 2023-12-02 13:31 | CASEMGMT ---
DUGLAS OCHOA chart reveiw: Patient was admitted 11/26-11/27 for respiratory failure, COPD exacerbation. See RN CM assessment from 11/28/23. Patient did not qualify for home oxygen. Patient was discharged to home with family support. Patient returned to [facility] ED for increased SOB and was admitted for CHF. Patient was having increased wheezes and placed on oxygen and also requiring intermittent bipap. DUGLAS CM in to discuss readmission and needs at discharge, daughter at bedside. Patient states she was doing well and taking all medications as prescribed. Patient returned to [facility] prior to follow-up appointment with PCP. Will monitor patient for oxygen at discharge, prefers [employer]. Daughter voiced concern regarding oxygen at home and why is wasn't setup last admission. RN CM explained qualification criteria for oxygen setup, daughter voiced understanding. Patient denies further needs at discharge. Patient had no further questions or concerns. CM will continue to follow this patient and plan for a safe discharge.
[2023-12-02] MEDS: 0.9 % NaCl (Sterile) Posiflush 10 mL IV ×2 (14:26→17:03)
[2023-12-02] MEDS: Sodium Ferric Gluconat/Sucrose 250 MG in 0.9% Normal Saline (250mL Bag) 250 ML 135 MG IV (14:31)
--- NOTE | 2023-12-02 16:04 | CHAPLAIN ---
Type of Pastoral Visit ___ Initial Visit ___ Follow-up Visit ___ On-call Visit ___ General Patient Visit ___ Spiritual Assessment ___ Family Conference ___ Bereavement ___ Rapid Response ___ Code Blue ___ Other (describe below) Pastoral Care Referral From ___ Patient ___ Family ___ Nurse ___ Physician ___ 3D Artist ___ Sleever ___ Other (describe below) Sacrament/Intervention ___ Active listening ___ Anointing ___ Gnosticist ___ Bereavement ___ Communion ___ Namrata exploration ___ ___ Life review ___ Prayer ___ Reconciliation ___ Sacrament of Sick ___ Supportive presence ___ Wedding ___ Other (describe below) Pastoral Comments patient was sound asleep and did not awaken so a calling card was left for her
[2023-12-02] MEDS: Carvedilol 12.5 MG Tablet PO (17:04)
[2023-12-02 17:30] LABS: Mucous, Urine 0 SEEN /hpf (<or=2+); Red Blood Cells-Urine 0 SEEN /hpf (0-5); Squamous Epithelial Cells - UA 0 SEEN /hpf (5-10)
[2023-12-02 17:37] LABS: Color, Urine Yellow (Yellow); Glucose, Dipstick Normal (Normal); Ketone-Dipstick Negative (Negative); Leukocyte Esterase-Dipstick 500 /ul (Negative); Nitrite-Dipstick Negative (Negative); Occult Blood-Urine 25 /ul (Negative); Protein-Dipstick 30 mg/dl (Negative); Urine Bilirubin Dipstick Negative (Negative); Urine Clarity Sl. Cloudy (Clear); Urine Urobilinogen Normal (Normal)
[2023-12-02 17:50] LABS: Bacteria 2+ /hpf (None Seen); White Blood Cells 50-100 SEEN /hpf (0-5)
[2023-12-02] MEDS: guaiFENesin 10 ML UDC (200MG/10ML) 5 ML PO (21:21)
[2023-12-02] MEDS: Temazepam 15 MG Capsule PO (21:21)
[2023-12-02] MEDS: 0.9% Saline Lock 10 ML Syringe IV (21:32)
--- NOTE | 2023-12-02 22:45 | CPS ---
Pt refused BiPAP for tonight.
[2023-12-03] VITALS (12 sets, daily range): BP systolic 101–122; BP diastolic 60–81; PULSE 101–117; RESP 16–26; TEMP 36.3–36.7; O2SAT 93–96; BMI 17.5
[2023-12-03 06:42] LABS: Absolute Lymphocyte Count 0.16 X10^3/uL (0.83-4.51); Absolute Neutrophil Count 1.8 X10^3/uL (2.0-7.7); Basophil# 0.04 X10^3/uL; Basophil% 1.6 % (0-1); Hematocrit 26.7 % (37-47); Hemoglobin 8.3 g/dL (12.0-15.0); Lymphocyte # 0.16 X10^3/ul (0.83-4.51); Lymphocyte % 6.6 % (19-41); Mean Corp Hgb Conc 31.1 g/dL (32-36); Mean Corpuscular Volume 93.4 fL (81-99); Mean Platelet Vol. 11.6 fl (6.2-12.0); Monocyte# 0.36 X10^3/uL; Monocyte% 14.8 % (0-10); NRBC Flagged by Analyzer 0 % (0-5); Neutrophil # 1.84 X10^3/uL (2.7-7.7); Neutrophil % 75.8 % (47-70); POSITIVE COUNT YES; POSITIVE DIFFERENTIAL YES; POSITIVE MORPHOLOGY YES; Platelet Count 60 K/mm3 (150-450); RBC Distribution Width CV 20.1 % (11.6-14.6); RBC Distribution Width SD 67.5 fl (35.1-43.9); Red Blood Count 2.86 M/mm3 (4.2-5.4); White Blood Count 2.4 K/mm3 (4.4-11.0)
[2023-12-03] MEDS: Ipratropium/Albuterol Sulfate 3 ML AMPUL.NEB INHALATION ×2 (06:43→13:24)
[2023-12-03] MEDS: guaiFENesin 10 ML UDC (200MG/10ML) 5 ML PO ×2 (06:48→13:40)
[2023-12-03 07:04] LABS: Differential Indicated SCAN CRITERIA MET
[2023-12-03 07:18] LABS: Anion Gap 8 (5-15); BUN 35 mg/dL (7-18); BUN/Creat Ratio 27.1 RATIO (10-20); Calcium,Total 8.5 mg/dL (8.5-10.1); Chloride 101 mmol/L (98-107); Creatinine, Serum 1.29 mg/dL (0.55-1.02); EST Glomerular Filtration Rate 43 mL/min (>60); Est Glom Filt Rate - Afr Amer 52 mL/min (>60); Estimated Creatinine Clearance 25.08 ml/min; Glucose 147 mg/dL (74-106); Magnesium 1.3 mg/dL (1.6-2.6); Phosphorus 2.7 mg/dL (2.5-4.9); Potassium 4.1 mmol/L (3.5-5.1); Sodium Level 136 mmol/L (136-145)
--- NOTE | 2023-12-03 07:56 | PCM.PN.HOSP ---
Reason for Visit Reason for Visit: Diagnoses Chronic obstructive pulmonary disease, unspecified (11/30/23) Subjective Subjective Patient seen still complains of shortness of breath her Lasix resumed. WBC count is up to 2.4 from 1.0 Objective Data Objective Data Vital Signs: Vital Signs Temp Pulse Resp BP Pulse Ox O2 Del Method O2 Flow Rate 98.0 F 102 H 20 H 112/74 93 Nasal Cannula 2 12/03/23 05:00 12/03/23 05:00 12/03/23 05:00 12/03/23 05:00 12/03/23 05:00 12/03/23 05:00 12/03/23 05:00 FiO2 35 12/02/23 14:41 Oxygen Flow Rate (L/min) 2 Oxygen Delivery Method Nasal Cannula Weight: 43.5 kg Body Mass Index (BMI) 17.5 Intake & Output: Intake and Output for Last 24 Hours 12/01/23 12/02/23 12/03/23 23:59 23:59 23:59 Intake Total 925 / 1045 1490 / 1490 Output Total 1500 / 1500 100 / 100 Balance -575 / -455 1465 / 1465 -100 / -100 Lab / Micro Data 12/03/23 06:20 12/03/23 06:20 Labs: Laboratory Results - last 24 hr 11/30/23 12:57: Diff Path Review Reviewed 12/01/23 06:10: Diff Path Review Reviewed 12/02/23 06:02: Differential Comment , Diff Path Review May 12/02/23 17:15: Urine Color Yellow, Urine Clarity Sl. Cloudy, Urine pH 5.0, Ur Specific [place] 1.020, Urine Protein 30 H, Urine Glucose (UA) Normal, Urine Ketones Negative, Urine Occult Blood 25 H, Urine Nitrite Negative, Urine Bilirubin Negative, Urine Urobilinogen Normal, Ur Leukocyte Esterase 500 H, Urine RBC 0 SEEN, Urine WBC 50-100 SEEN, Ur Squamous Epith Cells 0 SEEN, Urine Bacteria 2+, Urine Mucus 0 SEEN 12/03/23 06:20: WBC 2.4 L, RBC 2.86 L, Hgb 8.3 L, Hct 26.7 L, MCV 93.4, MCH 29.0, MCHC 31.1 L, RDW Std Deviation 67.5 H, RDW Coeff of Hiram 20.1 H, Plt Count 60 L, MPV 11.6, Immature Gran % (Auto) 1.200 H, Neut % (Auto) 75.8 H, Lymph % (Auto) 6.6 L, [place] % (Auto) 14.8 H, Eos % (Auto) 0.0, Baso % (Auto) 1.6 H, Absolute Neuts (auto) 1.8 L, Absolute Lymphs (auto) 0.16 L, Nucleated RBC % 0, Sodium 136, Potassium 4.1, Chloride 101, Carbon Dioxide 27.0, Anion Gap 8, BUN 35 H, Creatinine 1.29 H, Estim Creat Clear Calc 25.08, Est GFR (MDRD) Af Amer 52 L, Est GFR (MDRD) Non-Af 43 L, BUN/Creatinine Ratio 27.1 H, Glucose 147 H, Calcium 8.5, Phosphorus 2.7, Magnesium 1.3 L Physical Exam Narrative GENERAL: Appears ill looking and pale HEENT: Atraumatic; normocephalic EYES; Anicteric, Normal Conjunctiva NECK; supple, normal thyroid, RESPIRATORY: Diminished to auscultation CARDIOVASCULAR: Regular S1 S2, GI: soft, normoactive bowel sounds, : No Renal angle tenderness; EXTREMITIES: No edema, no clubbing, MUSCULOSKELETAL: no muscle wasting NEURO: Awake; no lateralizing signs. SKIN: No Rash PSYCH; Flat affect Assessment & Plan Assessment/Plan (1) COPD (chronic obstructive pulmonary disease): PLAN: Plan Patient is a 78-year-old lady with underlying history of non-small cell lung CA currently on chemo and immunotherapy readmitted 2 days following her recent hospitalization with increasing dyspnea and shortness of breath. Diagnosed with acute on chronic congestive heart failure admitted to a monitored bed for subsequent management 1. Acute on chronic congestive heart failure with reduced ejection fraction ? Managed with strict input and output, low-sodium diet, daily weight, fluid restriction as well as IV diuretic therapy. 2D echo from 11/28/2023 demonstrated EF of 35% with moderate to severe global hypokinesis of the left ventricle. ? 12/03/2023; patient Lasix dose resumed 2. COPD ? Complicating patient care ordered aerosol treatment as needed 3. Non-small cell lung CA ? Patient is on chemo and immunotherapy as outpatient 4. Chemo induced pancytopenia ? WBC count is 1.0, hemoglobin 8.8, platelet count 64 monitoring with daily CBC ? 12/03/2023; WBC count up to 2.4, hemoglobin down to 8.3 and platelet count 60 5. GERD ? On PPI 6. Hypertension ? Patient is on carvedilol currently being held given relatively low blood pressure 7. Recently diagnosed acute pulmonary embolism ? Patient did not tolerate systemic anticoagulation due to GI bleed patient underwent IVC filter placement on 09/25/2023 8. Physical deconditioning ? Requested for PT OT eval and social media community manager to assist with discharge planning 9. DVT prophylaxis ? Patient has an IVC filter Time spent in the patient's overall evaluation,decision-making process, review of diagnostic data, adjustment of management, discussion with other providers, nursing nursing and ancillary staff involved in patient's care documentation, 38 minutes Charges/Coding Visit Charges Inpatient E&M: 28001 Subs Hosp L2
[2023-12-03 09:13] LABS: Anisocytosis 2+; Differential Comment SCANNED; Macrocytosis 1+; Microcytosis 1+; Platelet Estimate MKD DEC (ADEQ); Reactive Lymphocyte 1+
[2023-12-03] MEDS: Folic Acid 1 MG Tablet PO (09:41)
[2023-12-03] MEDS: Pantoprazole Sodium 40 MG Tablet PO (09:41)
[2023-12-03] MEDS: Furosemide 40 MG Tablet PO (09:41)
[2023-12-03] MEDS: Calcium (Elemental) 500 MG Tablet 1000 MG PO (09:41)
[2023-12-03] MEDS: Potassium Chloride Oral Tablet 20 MEQ PO ×2 (09:41→17:49)
[2023-12-03] MEDS: Carvedilol 12.5 MG Tablet PO ×2 (09:41→17:48)
[2023-12-03] MEDS: Lactobacillis Acidophilus 1 CAP PO (09:42)
[2023-12-03] MEDS: Cholecalciferol (VIT D3) 25 MCG TABLET (1,000 UNITS) PO (09:42)
[2023-12-03] MEDS: Acyclovir 200 MG Capsule 400 MG PO ×2 (09:43→21:53)
[2023-12-03 10:37] LABS: Pathologist Review Reviewed
[2023-12-03] MEDS: Colestipol 1 GM TABLET 2 GM PO ×2 (11:25→21:53)
[2023-12-03] MEDS: 0.9% Saline Lock 10 ML Syringe IV ×2 (13:40→21:56)
--- NOTE | 2023-12-03 14:24 | CHAPLAIN ---
Type of Pastoral Visit _x__ Initial Visit ___ Follow-up Visit ___ On-call Visit ___ General Patient Visit ___ Spiritual Assessment ___ Family Conference ___ Bereavement ___ Rapid Response ___ Code Blue ___ Other (describe below) Pastoral Care Referral From _x__ Patient ___ Family ___ Nurse ___ Physician ___ Voice Network Engineer ___ Biodiesel Production Associate ___ Other (describe below) Sacrament/Intervention _x__ Active listening ___ Anointing ___ Sabianism ___ Bereavement ___ Communion ___ Namrata exploration ___ ___ Life review _x__ Prayer ___ Reconciliation ___ Sacrament of Sick _x__ Supportive presence ___ Wedding ___ Other (describe below) Pastoral Comments patient was alert and working on her computer; pt did have difficulty with talking much due to breathing concerns; offered to make this a brief visit but to seek how she could be assisted today; pt talks about this being a long three years of poor health, the love of her grandson who wants her to fight and get better, and just her general state of weariness; pt says that a prayer would be helpful; offer of ongoing support as she desires
[2023-12-04] VITALS (11 sets, daily range): BP systolic 114–142; BP diastolic 70–99; PULSE 96–117; RESP 12–26; TEMP 36.4–36.6; O2SAT 87–97; BMI 17.6
[2023-12-04] MEDS: guaiFENesin 10 ML UDC (200MG/10ML) 5 ML PO ×2 (04:07→20:58)
[2023-12-04] MEDS: Albuterol 2.5 MG/3 ML VIAL.NEB. INHALATION (04:10)
[2023-12-04] MEDS: Acetaminophen 325 MG Tablet 650 MG PO ×2 (04:14→20:59)
--- NOTE | 2023-12-04 05:23 | CPS ---
Patient was SOB, Bipap placed by ANODIZER and PRN breathing tx given
[2023-12-04] MEDS: 0.9% Saline Lock 10 ML Syringe IV (06:30)
[2023-12-04] MEDS: Ipratropium/Albuterol Sulfate 3 ML AMPUL.NEB INHALATION ×3 (07:01→19:03)
[2023-12-04] MEDS: Calcium (Elemental) 500 MG Tablet 1000 MG PO (08:57)
[2023-12-04] MEDS: Acyclovir 200 MG Capsule 400 MG PO ×2 (08:58→20:59)
[2023-12-04] MEDS: Folic Acid 1 MG Tablet PO (08:58)
[2023-12-04] MEDS: Cholecalciferol (VIT D3) 25 MCG TABLET (1,000 UNITS) PO (08:58)
[2023-12-04] MEDS: Carvedilol 12.5 MG Tablet PO ×2 (08:58→16:25)
[2023-12-04] MEDS: Furosemide 40 MG Tablet PO (08:58)
[2023-12-04] MEDS: Pantoprazole Sodium 40 MG Tablet PO (08:58)
[2023-12-04] MEDS: Lactobacillis Acidophilus 1 CAP PO (08:58)
[2023-12-04] MEDS: Potassium Chloride Oral Tablet 20 MEQ PO ×2 (08:58→16:24)
[2023-12-04] MEDS: Colestipol 1 GM TABLET 2 GM PO ×2 (08:59→20:58)
[2023-12-04 09:43] LABS: Absolute Lymphocyte Count 0.19 X10^3/uL (0.83-4.51); Basophil# 0.03 X10^3/uL; Basophil% 0.8 % (0-1); Lymphocyte # 0.19 X10^3/ul (0.83-4.51); Lymphocyte % 5.3 % (19-41); Mean Corp Hgb Conc 32.1 g/dL (32-36); Mean Corpuscular Hgb 29.9 pg (27.0-32.0); Mean Platelet Vol. 13.1 fl (6.2-12.0); Monocyte# 0.31 X10^3/uL; Monocyte% 8.7 % (0-10); NRBC Flagged by Analyzer 0 % (0-5); Neutrophil # 2.96 X10^3/uL (2.7-7.7); POSITIVE COUNT YES; POSITIVE DIFFERENTIAL YES; POSITIVE MORPHOLOGY YES; RBC Distribution Width CV 20.3 % (11.6-14.6); RBC Distribution Width SD 67.1 fl (35.1-43.9); Red Blood Count 3.01 M/mm3 (4.2-5.4); White Blood Count 3.6 K/mm3 (4.4-11.0)
[2023-12-04 09:45] LABS: Differential Indicated SCAN CRITERIA MET; Platelet Count 50 K/mm3 (150-450)
[2023-12-04 10:35] LABS: Anion Gap 10 (5-15); BUN 34 mg/dL (7-18); BUN/Creat Ratio 24.5 RATIO (10-20); Calcium,Total 9.2 mg/dL (8.5-10.1); Chloride 103 mmol/L (98-107); Creatinine, Serum 1.39 mg/dL (0.55-1.02); EST Glomerular Filtration Rate 39 mL/min (>60); Est Glom Filt Rate - Afr Amer 47 mL/min (>60); Estimated Creatinine Clearance 23.38 ml/min; Glucose 161 mg/dL (74-106); Potassium 4.6 mmol/L (3.5-5.1); Sodium Level 136 mmol/L (136-145)
[2023-12-04 10:51] LABS: Anisocytosis 1+; Platelet Estimate MOD DEC (ADEQ)
--- NOTE | 2023-12-04 11:09 | DS.PCM_ITS ---
Providers Date of Admission: 11/30/23 Date of Discharge: 12/05/23 Primary Care Physician: Dr. Vlad Dennis MD Consultations 12/01/23 14:52 Consult: Trailer Tank Truck Driver / Pulmonary Medicine Routine Consulting Provider: Intensivists/Pulmonary Med Reason for Consult: Respiratory failure, ?COPD,?CHF, possible reaction to Keytruda-patient on EMERGENT Consult: No MD Notified: Yes Date Notified: 12/01/23 Time Notified: 14:53 Method of Notification: Text Reason For Visit: CHF Diagnosis Discharge Diagnosis (1) COPD (chronic obstructive pulmonary disease): Status: Chronic Code(s): J44.9 - Chronic obstructive pulmonary disease, unspecified Plan Patient is a 78-year-old lady with underlying history of non-small cell lung CA currently on chemo and immunotherapy readmitted 2 days following her recent hospitalization with increasing dyspnea and shortness of breath. Diagnosed with acute on chronic congestive heart failure admitted to a monitored bed for subsequent management 1. Acute on chronic congestive heart failure with reduced ejection fraction ? Managed with strict input and output, low-sodium diet, daily weight, fluid restriction as well as IV diuretic therapy. 2D echo from 11/28/2023 demonstrated EF of 35% with moderate to severe global hypokinesis of the left ventricle. ? 12/03/2023; patient Lasix dose resumed ? 12/04/2023; patient continues to improve 2. COPD ? Complicating patient care ordered aerosol treatment as needed 3. Non-small cell lung CA ? Patient is on chemo and immunotherapy as outpatient 4. Chemo induced pancytopenia ? WBC count is 1.0, hemoglobin 8.8, platelet count 64 monitoring with daily CBC ? 12/03/2023; WBC count up to 2.4, hemoglobin down to 8.3 and platelet count 60 5. GERD ? On PPI 6. Hypertension ? Patient is on carvedilol currently being held given relatively low blood pressure 7. Recently diagnosed acute pulmonary embolism ? Patient did not tolerate systemic anticoagulation due to GI bleed patient underwent IVC filter placement on 09/25/2023 8. Physical deconditioning ? Requested for PT OT eval and social media coordinator to assist with discharge planning 9. DVT prophylaxis ? Patient has an IVC filter 10. Acute rhinovirus infection ? Symptom management 11. Acute cystitis with Enterobacter cloacae complex ?Patient is on Levaquin I have reviewed the oxygen testing, and this patient qualifies for the home equipment and portability. The patient is mobile in the home and the community. Time spent in the patient's overall evaluation,decision-making process, review of diagnostic data, adjustment of management, discussion with other providers, nursing nursing and ancillary staff involved in patient's care documentation, 35 minutes Medications at Discharge Home Medications multivitamin with folic acid 400 mcg tablet 1 tab PO DAILY SUPPLEMENT 09/16/14 cholecalciferol (vitamin D3) 25 mcg (1,000 unit) tablet 1,000 unit PO DAILY supplement 05/04/19 tiotropium bromide 18 mcg capsule with inhalation device (Spiriva with HandiHaler) 2 cap inhalation DAILY COPD 02/11/20 Lactobacillus rhamnosus GG 15 billion cell sprinkle capsule (Culturelle) 1 cap PO DAILY probiotic 12/29/20 valacyclovir 500 mg tablet 500 mg PO DAILY viral infection 05/31/22 vitamin E (dl, acetate) 180 mg (400 unit) capsule 180 mg PO DAILY vitamin 02/22/23 osimertinib 80 mg tablet (Tagrisso) 80 mg PO DAILY cancer 06/18/23 carvedilol 25 mg tablet 12.5 mg PO BID blood pressure 07/05/23 dexamethasone 4 mg tablet 4 mg PO .COMPLEX infammation #40 tabs 09/12/23 folic acid 1 mg tablet 1 mg PO DAILY supplement #90 tabs 09/12/23 lidocaine-prilocaine 2.5 %-2.5 % topical cream 1 applic topical ONCE PRN port access 30 days #30 grams 09/12/23 ondansetron 8 mg disintegrating tablet 8 mg PO Q8H PRN nausea and vomiting #30 tabs 09/12/23 pantoprazole 40 mg tablet,delayed release 40 mg PO DAILY reflux #30 tabs 09/27/23 colestipol 1 gram tablet 2 g (2 x 1 gram) PO BID cholesterol 30 days #120 tabs 10/14/23 albuterol sulfate 90 mcg/actuation aerosol inhaler (Ventolin HFA) 2 puff inhalation Q6H PRN shortness of breath or wheezing #6.7 grams 10/18/23 prednisone 20 mg tablet 40 mg (2 x 20 mg) PO DAILY #9 tabs 11/28/23 calcium carbonate (Oyster Shell Calcium) 1,000 mg PO DAILY 11/30/23 furosemide 20 mg tablet 20 mg PO DAILY 11/30/23 levofloxacin 250 mg tablet 250 mg PO DAILY@0600 #7 tabs 12/04/23 lisinopril 2.5 mg tablet 2.5 mg PO DAILY #30 tabs 12/05/23 Physical Exam Narrative GENERAL: Appears ill looking and pale HEENT: Atraumatic; normocephalic EYES; Anicteric, Normal Conjunctiva NECK; supple, normal thyroid, RESPIRATORY: Diminished to auscultation CARDIOVASCULAR: Regular S1 S2, GI: soft, normoactive bowel sounds, : No Renal angle tenderness; EXTREMITIES: No edema, no clubbing, MUSCULOSKELETAL: no muscle wasting NEURO: Awake; no lateralizing signs. SKIN: No Rash PSYCH; Flat affect Weight / BMI Weight Weight: 43.7 kg Body Mass Index (BMI) 17.6 ABG / Lab / Microbiology Data 12/05/23 06:55 12/04/23 09:25 Laboratory: Laboratory Results - last 24 hr 12/04/23 09:25: WBC 3.6 L, RBC 3.01 L, Hgb 9.0 L, Hct 28.0 L, MCV 93.0, MCH 29.9, MCHC 32.1, RDW Std Deviation 67.1 H, RDW Coeff of Hiram 20.3 H, Plt Count 50 L*, MPV 13.1 H, Immature Gran % (Auto) 2.200 H, Neut % (Auto) 83.0 H, Lymph % (Auto) 5.3 L, [place] % (Auto) 8.7, Eos % (Auto) 0.0, Baso % (Auto) 0.8, Absolute Neuts (auto) 3.0, Absolute Lymphs (auto) 0.19 L, Nucleated RBC % 0, Differential Comment COMMENT, Diff Path Review May foll, Platelet Estimate MOD DEC, Anisocytosis 1+, Sodium 136, Potassium 4.6, Chloride 103, Carbon Dioxide 23.0, Anion Gap 10, BUN 34 H, Creatinine 1.39 H, Estim Creat Clear Calc 23.38, Est GFR (MDRD) Af Amer 47 L, Est GFR (MDRD) Non-Af 39 L, BUN/Creatinine Ratio 24.5 H, G lucose 161 H, Calcium 9.2 Microbiology: Microbiology 12/02/23 17:15 Urine, Clean Catch Urine Culture - Final Enterobacter cloacae complex Meaningful Use Info Meaningful Use Meaningful Use Diagnoses (Choose all that apply): CHF CHF SOLA/ARB ordered at discharge?: Yes Documented LVEF (%): 35 Ischemic Stroke Statin Dosing Therapy Reference: STATIN DOSE THERAPY REFERENCE: * Patients > 75 years receive moderate or high dose statin therapy. * Patients 75 years or YOUNGER should receive HIGH intensity statin dose unless contraindicated. You will be required to document reason for non-treatment if statin daily dose does not meet guidelines. HIGH DOSE STATIN THERAPY DAILY Atorvastatin > than or = to 40 mg Rosuvastatin > than or = to 20 mg Amlodipine + Atorvastatin > than or = to 2.5/40 mg Ezetimibe + Simvastatin 10/80 mg Simvastatin 80mg Discharge Plan Admission Admit Date/Time: 11/30/23 15:13 Attending Provider: Xavier Elias Primary Care Provider: Vlad Dennis Consulting Providers: Leandro Escalante Discharge Orders/Prescriptions Prescriptions: New levofloxacin 250 mg Tablet 250 mg PO DAILY@0600 Qty: 7 0RF lisinopril 2.5 mg tablet 2.5 mg PO DAILY Qty: 30 0RF Continued Spiriva with HandiHaler 18 mcg capsule, w/inhalation device 2 cap INHALATION DAILY Rx Instructions: puncture 1 cap using device; one dose = 2 inhalations Culturelle 15 billion cell capsule, sprinkle 1 cap PO DAILY valacyclovir 500 mg tablet 500 mg PO DAILY Patient Comments: TAKE 1 TABLET BY MOUTH THREE TIMES DAILY DIRECTED vitamin E (dl, acetate) 180 mg (400 unit) capsule 180 mg PO DAILY Tagrisso 80 mg tablet 80 mg PO DAILY carvedilol 25 mg tablet 12.5 mg PO BID Rx Instructions: must administer with a meal/food ondansetron 8 mg tablet,disintegrating 8 mg PO Q8H PRN (Reason: nausea and vomiting) Qty: 30 2RF lidocaine-prilocaine 2.5-2.5 % cream 1 applic topical ONCE PRN (Reason: port access) 30 Days Qty: 30 2RF dexamethasone 4 mg tablet 4 mg PO .COMPLEX Qty: 40 0RF Rx Instructions: 4 mg orally twice a day ONLY the day before, the day of, and the day after chemotherapy folic acid 1 mg tablet 1 mg PO DAILY Qty: 90 1RF albuterol sulfate [Ventolin HFA] 90 mcg/actuation HFA aerosol inhaler 2 puff inhalation Q6H PRN (Reason: shortness of breath or wheezing) Qty: 6.7 0RF multivitamin with folic acid 1 TABLET tablet 1 tab PO DAILY Patient Comments: supplement cholecalciferol (vitamin D3) 1,000 UNIT tablet 1,000 unit PO DAILY prednisone 20 mg tablet 40 mg PO DAILY Qty: 9 0RF Rx Instructions: two per day for 3 days, then one daily for 3 days, then stop furosemide 20 mg tablet 20 mg PO DAILY calcium carbonate [Oyster Shell Calcium] 500 mg calcium (1,250 mg) tablet 1,000 mg PO DAILY pantoprazole 40 mg tablet,delayed release (DR/EC) 40 mg PO DAILY Qty: 30 4RF colestipol 1 gram tablet 2 g PO BID 30 Days Qty: 120 2RF Referrals / Follow Up: Vlad Dennis MD [Primary Care Provider] - 12/11/23 3:10 pm Disposition Disposition (needs filled in before D/C Order can be placed): Home, Self Care Charges/Coding Visit Charges Inpatient E&M: 04734 Disch Hosp >30min
[2023-12-04] MEDS: levoFLOXacin 250 MG Tablet PO (12:22)
--- NOTE | 2023-12-04 13:45 | CASEMGMT ---
DUGLAS OCHOA updated by nursing, patient and family concerned for needs at discharge. Patient was up independent with therapy. DUGLAS OCHOA in to discuss needs with patient and daughter. Patient states she will need a new nebulizer as hers is broken. Patient also qualifies for home oxygen at discharge. Patient and daughter agreeable to [facility] for nebulizer and home oxygen. DUGLAS OCHOA discussed HHC [facility], patient declined HHC. Patient states she will have friends that could check on her while her roommate is on vacation. DUGLAS OCHOA discuss palliative care with patient and daughter. Patient agreeable, hospitalist updated and received order for referral. Patient and daughter denied further needs or concerns. DUGLAS OCHOA made palliatvie care referral to [facility] Palliative. CM will continue to follow this patient and plan for a safe discharge.
--- NOTE | 2023-12-04 14:23 | PN.HOSP_ITS ---
Reason for Visit Reason for Visit: Diagnoses Chronic obstructive pulmonary disease, unspecified (11/30/23) Subjective Subjective Patient seen clinical condition continues to improve. Plan is for patient to be assessed for home oxygen on discharge. Was also assessed by PT patient did not qualify for ECF placement. Case discussed with patient and the daughter Objective Data Objective Data Vital Signs: Vital Signs Temp Pulse Resp BP Pulse Ox O2 Del Method O2 Flow Rate 97.5 F L 96 20 H 124/77 H 91 Nasal Cannula 2 12/04/23 08:45 12/04/23 13:13 12/04/23 13:13 12/04/23 08:45 12/04/23 12:52 12/04/23 13:40 12/04/23 13:40 FiO2 35 12/04/23 04:15 Oxygen Flow Rate (L/min) [ 2 AMBULATING with Oxygen #1] Oxygen Flow Rate (L/min) 2 Oxygen Delivery Method Nasal Cannula Weight: 43.7 kg Body Mass Index (BMI) 17.6 Intake & Output: Intake and Output for Last 24 Hours 12/02/23 12/03/23 12/04/23 23:59 23:59 23:59 Intake Total 1490 / 1490 540 / 840 820 / 820 Output Total 200 / 700 1000 / 1000 Balance 1465 / 1465 340 / 140 -180 / -180 Lab / Micro Data 12/04/23 09:25 12/04/23 09:25 Labs: Laboratory Results - last 24 hr 12/04/23 09:25: WBC 3.6 L, RBC 3.01 L, Hgb 9.0 L, Hct 28.0 L, MCV 93.0, MCH 29.9, MCHC 32.1, RDW Std Deviation 67.1 H, RDW Coeff of Hiram 20.3 H, Plt Count 50 L*, MPV 13.1 H, Immature Gran % (Auto) 2.200 H, Neut % (Auto) 83.0 H, Lymph % (Auto) 5.3 L, [place] % (Auto) 8.7, Eos % (Auto) 0.0, Baso % (Auto) 0.8, Absolute Neuts (auto) 3.0, Absolute Lymphs (auto) 0.19 L, Nucleated RBC % 0, Differential Comment COMMENT, Diff Path Review May foll, Platelet Estimate MOD DEC, Anisocytosis 1+, Sodium 136, Potassium 4.6, Chloride 103, Carbon Dioxide 23.0, Anion Gap 10, BUN 34 H, Creatinine 1.39 H, Estim Creat Clear Calc 23.38, Est GFR (MDRD) Af Amer 47 L, Est GFR (MDRD) Non-Af 39 L, BUN/Creatinine Ratio 24.5 H, G lucose 161 H, Calcium 9.2 Micro: Microbiology 12/02/23 06:30 Blood Culture (Wb) - Anticubital Right Blood Culture - Preliminary No growth in 48 hours. 12/02/23 06:02 Blood Culture (Wb) - Anticubital Right Blood Culture - Preliminary No growth in 48 hours. 12/02/23 17:15 Urine, Clean Catch Urine Culture - Final Enterobacter cloacae complex Physical Exam Narrative GENERAL: Appears ill looking and pale HEENT: Atraumatic; normocephalic EYES; Anicteric, Normal Conjunctiva NECK; supple, normal thyroid, RESPIRATORY: Diminished to auscultation CARDIOVASCULAR: Regular S1 S2, GI: soft, normoactive bowel sounds, : No Renal angle tenderness; EXTREMITIES: No edema, no clubbing, MUSCULOSKELETAL: no muscle wasting NEURO: Awake; no lateralizing signs. SKIN: No Rash PSYCH; Flat affect Assessment & Plan Assessment/Plan (1) COPD (chronic obstructive pulmonary disease): PLAN: Plan Patient is a 78-year-old lady with underlying history of non-small cell lung CA currently on chemo and immunotherapy readmitted 2 days following her recent hospitalization with increasing dyspnea and shortness of breath. Diagnosed with acute on chronic congestive heart failure admitted to a monitored bed for subsequent management 1. Acute on chronic congestive heart failure with reduced ejection fraction ? Managed with strict input and output, low-sodium diet, daily weight, fluid restriction as well as IV diuretic therapy. 2D echo from 11/28/2023 demonstrated EF of 35% with moderate to severe global hypokinesis of the left ventricle. ? 12/03/2023; patient Lasix dose resumed ? 12/04/2023; patient continues to improve 2. COPD ? Complicating patient care ordered aerosol treatment as needed 3. Non-small cell lung CA ? Patient is on chemo and immunotherapy as outpatient 4. Chemo induced pancytopenia ? WBC count is 1.0, hemoglobin 8.8, platelet count 64 monitoring with daily CBC ? 12/03/2023; WBC count up to 2.4, hemoglobin down to 8.3 and platelet count 60 5. GERD ? On PPI 6. Hypertension ? Patient is on carvedilol currently being held given relatively low blood pressure 7. Recently diagnosed acute pulmonary embolism ? Patient did not tolerate systemic anticoagulation due to GI bleed patient underwent IVC filter placement on 09/25/2023 8. Physical deconditioning ? Requested for PT OT eval and social services specialist to assist with discharge planning 9. DVT prophylaxis ? Patient has an IVC filter 10. Acute rhinovirus infection ? Symptom management 11. Acute cystitis with Enterobacter cloacae complex ?Patient is on Levaquin I have reviewed the oxygen testing, and this patient qualifies for the home equipment and portability. The patient is mobile in the home and the community. Time spent in the patient's overall evaluation,decision-making process, review of diagnostic data, adjustment of management, discussion with other providers, nursing nursing and ancillary staff involved in patient's care documentation, 35 minutes Charges/Coding Visit Charges Inpatient E&M: 97531 Subs Hosp L2
[2023-12-04] MEDS: Ensure Plus High Protein 120 ML LIQUID PO (16:25)
[2023-12-04] MEDS: Temazepam 15 MG Capsule PO (21:17)
[2023-12-04] MEDS: Ondansetron 4 MG/2 ML Vial IV (21:18)
[2023-12-05] MEDS: Guaifenesin/Codeine 5 ML WCH UDC PO (02:27)
[2023-12-05 03:00] VITALS: PULSE 111
--- NOTE | 2023-12-05 03:49 | CPS ---
Patient refusing BIPAP use due to machine being too loud and wanting to get sleep
[2023-12-05 03:51] VITALS: BMI 18.1
[2023-12-05 06:00] VITALS: BP 123/76; PULSE 105; RESP 22; TEMP 36.6; O2SAT 95
[2023-12-05] MEDS: guaiFENesin 10 ML UDC (200MG/10ML) 5 ML PO ×2 (06:41→12:19)
[2023-12-05] MEDS: levoFLOXacin 250 MG Tablet PO (06:41)
[2023-12-05] MEDS: 0.9% Saline Lock 10 ML Syringe IV ×2 (06:41→14:55)
[2023-12-05] MEDS: Benzonatate 100 MG Capsule 200 MG PO ×2 (06:41→14:54)
[2023-12-05 07:07] LABS: Hematocrit 26.4 % (37-47); Hemoglobin 8.3 g/dL (12.0-15.0); Mean Corp Hgb Conc 31.4 g/dL (32-36); Mean Corpuscular Hgb 29.6 pg (27.0-32.0); Mean Corpuscular Volume 94.3 fL (81-99); Mean Platelet Vol. 11.7 fl (6.2-12.0); POSITIVE COUNT YES; POSITIVE DIFFERENTIAL YES; POSITIVE MORPHOLOGY YES; Platelet Count 52 K/mm3 (150-450); RBC Distribution Width CV 20.1 % (11.6-14.6); RBC Distribution Width SD 67.5 fl (35.1-43.9); White Blood Count 5.5 K/mm3 (4.4-11.0)
[2023-12-05] MEDS: Ipratropium/Albuterol Sulfate 3 ML AMPUL.NEB INHALATION ×2 (07:08→12:52)
[2023-12-05 07:10] VITALS: PULSE 100; RESP 20
[2023-12-05 07:36] LABS: Differential Indicated MANUAL DIFF
[2023-12-05] MEDS: Folic Acid 1 MG Tablet PO (08:29)
[2023-12-05] MEDS: Carvedilol 12.5 MG Tablet PO (08:29)
[2023-12-05] MEDS: Calcium (Elemental) 500 MG Tablet 1000 MG PO (08:30)
[2023-12-05] MEDS: Potassium Chloride Oral Tablet 20 MEQ PO (08:30)
[2023-12-05] MEDS: Lactobacillis Acidophilus 1 CAP PO (08:30)
[2023-12-05] MEDS: guaiFENesin 600 MG Tablet 1200 MG PO (08:30)
[2023-12-05 09:54] LABS: Anion Gap 5 (5-15); BUN 34 mg/dL (7-18); BUN/Creat Ratio 29.6 RATIO (10-20); Calcium,Total 9.5 mg/dL (8.5-10.1); Chloride 104 mmol/L (98-107); Creatinine, Serum 1.15 mg/dL (0.55-1.02); EST Glomerular Filtration Rate 49 mL/min (>60); Est Glom Filt Rate - Afr Amer 59 mL/min (>60); Estimated Creatinine Clearance 29.04 ml/min; Glucose 139 mg/dL (74-106); Potassium 5.2 mmol/L (3.5-5.1); Sodium Level 135 mmol/L (136-145)
[2023-12-05 10:10] VITALS: O2SAT 95
[2023-12-05 10:45] LABS: Anisocytosis 2+; Lymphocyte 9 % (19-41); Macrocytosis 1+; Metamyelocyte 1 % (0-1); Microcytosis 1+; Monocyte 6 % (0-10); Myelocyte 3 % (0-0); Neutrophil-Band 9 % (0-5); Neutrophil-Segmented 72 % (47-70); Total Cells Counted 100 (MANUAL DIFF)
[2023-12-05 10:46] LABS: Platelet Estimate MKD DEC (ADEQ)
[2023-12-05 10:47] LABS: Absolute Neutrophil Count 4.5 X10^3/uL (2.0-7.7)
[2023-12-05] MEDS: Acyclovir 200 MG Capsule 400 MG PO (12:18)
[2023-12-05] MEDS: Pantoprazole Sodium 40 MG Tablet PO (12:18)
[2023-12-05] MEDS: Furosemide 40 MG Tablet PO (12:18)
[2023-12-05] MEDS: Colestipol 1 GM TABLET 2 GM PO (12:18)
[2023-12-05] MEDS: Cholecalciferol (VIT D3) 25 MCG TABLET (1,000 UNITS) PO (12:19)
[2023-12-05 12:31] VITALS: O2SAT 88; O2SAT 92; O2SAT 93
[2023-12-05 13:03] VITALS: PULSE 98; RESP 21
--- NOTE | 2023-12-05 13:34 | CASEMGMT ---
Patient has order for discharge. Patient qualifies for home oxygen. DUGLAS OCHOA received script for home oxygen and nebulizer at discharge. DUGLAS OCHOA in to discuss needs at discharge, daughter. Patient would like [facility] for DME and will need a pulse ox at discharge. DUGLAS OCHOA updated patient that Palliative Care should be reaching out to her. DUGLAS OCHOA sent referral to [employer] via [facility] and called liaison regarding nebulizer, patient can pick it up at the branch. DUGLAS OCHOA updated patient and daughter regarding picking up nebulizer at branch. Patient was provided portable tank from [employer] stock and pulse ox. Patient and daughter denied further questions or concerns.
[2023-12-06 09:32] LABS: Pathologist Review Reviewed
[2023-12-06 09:32] LABS: Pathologist Review Reviewed
== END 2023-12-05 15:28 | disposition home or self-care (01) | DRG 291 ==
LOC: ED 14:15 → PCU 12-01 10:51
PROVIDERS: Admitting Provider Internal Medicine; Emergency Provider Emergency Medicine; PCP Family Medicine; Visit Provider Internal Medicine
DX: I11.0 Hypertensive heart disease with heart failure (principal); I50.23 Acute on chronic systolic (congestive) heart failure; D61.810 Antineoplastic chemotherapy induced pancytopenia; C34.92 Malignant neoplasm of unspecified part of left bronchus or lung; N30.00 Acute cystitis without hematuria; I95.89 Other hypotension; B96.89 Other specified bacterial agents as the cause of diseases classified elsewhere; B34.8 Other viral infections of unspecified site; J44.9 Chronic obstructive pulmonary disease, unspecified; K21.9 Gastro-esophageal reflux disease without esophagitis; R53.81 Other malaise; Z79.51 Long term (current) use of inhaled steroids; Z79.899 Other long term (current) drug therapy; Z86.711 Personal history of pulmonary embolism; Z87.891 Personal history of nicotine dependence
CPT/HCPCS: 36415; 36591; 71045; 80048; 80076; 81001; 83605; 83690; 83735; 83880; 84100; 84484; 85025; 85610; 85730; 87040; 87077; 87086; 87088; 87186; 93005; 94002; 94003; 94640; 94762; 97161; 97802; 99285; J7030; J7050; A4216; J1447; J1940; J2405; J2916

== ENCOUNTER 2023-12-06 20:01 | Emergency (ER) | payer MEDICARE, OTHER, SELFPAY ==
[2023-12-06 20:07] VITALS: BP 142/91; PULSE 119; RESP 22; TEMP 36.8; O2SAT 93; O2SAT 97; BMI 17.9
[2023-12-06 20:29] VITALS: O2SAT 89; O2SAT 96
--- NOTE | 2023-12-06 20:45 | EKG12_ITS ---
Test Reason : SOB Blood Pressure : / mmHG Vent. Rate : 115 BPM Atrial Rate : 115 BPM P-R Int : 130 ms QRS Dur : 074 ms QT Int : 334 ms P-R-T Axes : 071 058 069 degrees QTc Int : 462 ms Sinus tachycardia with frequent Premature ventricular complexes Otherwise normal ECG When compared with ECG of 30-NOV-2023 12:23, No significant change was found Confirmed by ISHMAEL GREWAL, IVIS ([id number]), publishing editor SIRISHA DUQUE ([id number]) on 12/12/2023 6:59:46 AM Referred By: Confirmed By:LUIS ANGEL QUIÑONES MD
--- NOTE | 2023-12-06 20:45 | CT_ITS ---
EXAM: CT ANGIOGRAPHY CHEST WITHOUT AND WITH INTRAVENOUS CONTRAST CLINICAL INDICATION: shortness of breath previous history of lung cancer. Previous radiation treatments. TECHNIQUE: Helically acquired angiography images were obtained of the chest without and with intravenous contrast. This CT exam was performed using one or more of the following dose reduction techniques: automated exposure control, adjustment of the mA and/or kV according to patient size, and/or use of iterative reconstruction technique. MIP reconstructed images were created and reviewed. CONTRAST: IV 75mL [id number] RADIATION DOSE: CTDIvol = 7.59 mGy, DLP = 160.42 mGy-cm COMPARISON: 11/06/2023 FINDINGS: LIMITATIONS: Limited views of the upper abdomen show no gross acute abnormality. PULMONARY ARTERIES: Unremarkable. Normal in caliber. No evidence of pulmonary embolism. AORTA: Calcified plaque of the aorta with no aneurysm. No evidence of dissection. GREAT VESSELS OF AORTIC ARCH: Unremarkable. Normal in caliber. No evidence of dissection. LUNGS AND PLEURAL SPACES: Hyperexpansion of the lungs consistent with COPD. Diffuse interstitial prominence consistent with diffuse fibrosis. Evidence of underlying centrilobular emphysema. Irregular poorly marginated airspace opacities of both lung bases worse on the left, not present previously and most suspicious for infiltrate. Stable irregularly marginated focal pulmonary opacity in the left apex approximately 3.5 cm greatest dimension, and a similar but smaller density in the right apex. These are also areas of probable scarring but neoplasm cannot be excluded. Irregular relatively extensive soft tissue density in and around the right hilum in the medial mid right lung with appearance consistent with radiation fibrosis. However, the abnormal soft tissue density which is difficult to accurately measure, appears larger and more extensive than previous exam suspicious for recurrent neoplasm. PET scan is recommended. Small left pleural effusion. Pleural fluid seen along the upper portion of the right major fissure, not present previously. HEART: Unremarkable. Heart size is normal. No pericardial effusion. No significant coronary artery calcifications. MEDIASTINUM: Abnormal soft tissue density throughout the mid mediastinum could be fibrosis or neoplasm. Esophagus is unremarkable. No hiatal hernia. THYROID: Unremarkable. No thyroid lesions. BONES/JOINTS: Unremarkable. No suspicious lytic or blastic abnormality. CT/CTA Chest W/WO Contrast IMPRESSION: 1. No evidence for PE. 2. Abnormal irregular pulmonary opacities in numerous portions of the lungs. In both lung bases findings suggest infiltrates. In both lung apices findings could be scarring or neoplasm. In and around the right hilum in the mid right lung findings have increased in mass since prior exam and could represent recurrent neoplasm. PET scan is recommended. Electronically Signed: Ry Horn MD at 23:05 EDT ,
--- NOTE | 2023-12-06 20:58 | EX.ED.DYSGE1 ---
HPI <YANE Beltran - Last Filed: 12/06/23 21:59> History of Present Illness Chief Complaint: Shortness of Breath Narrative Narrative: Patient is a 78-year-old female with history of stage IV lung cancer who is currently receiving chemotherapy. Last chemotherapy was 8 to 9 days ago. Patient had 2 admissions over the last 7 days for fluid overload, hypoxia. Patient is currently on oxygen now 04/02. Patient does have history of blood clots to bilateral legs however has an IVC filter, she also has a blood clot to her left lower lobe and she is no longer on any anticoagulation secondary to her's chemotherapy thinning her blood. Patient states today, she got more short of breath even on her oxygen. She is not sure if this is because of her lungs or if because the tubing is long. However patient states that she got scared and is here for evaluation. She denies any fever or chills. Patient does have a cough however she states this is chronic. She denies any specific pain. PFSH <YANE Beltran - Last Filed: 12/06/23 21:59> [facility] Medical History DVT (deep venous thrombosis) HTN (hypertension) Vision changes Shortness of breath Hypokalemia Weight loss Pulmonary embolism Pneumonia Immunotherapy encounter Chemotherapy management, encounter for Wears glasses Wears dentures Cancer Alcohol use History of pulmonary embolus (PE) History of hepatitis A virus infection Gastric reflux Former smoker Shortness of breath on exertion History of tachycardia History of stress test History of echocardiogram Cardiology follow-up encounter Encounter for vitamin B12 injection while on pemetrexed chemotherapy Encounter for insertion of venous access port Diarrhea Encounter for monitoring cardiotoxic drug therapy Anemia Exertional dyspnea Headache COPD with exacerbation Dyspepsia and disorder of function of stomach Hydronephrosis with ureteral calculus NSCLC of left lung Essential hypertension Encounter for education Pleural effusion, left History of lung cancer in adulthood Lung nodule < 6cm on CT Sinus tachycardia Raynauds disease Chest pain COPD (chronic obstructive pulmonary disease) Lung mass Colitis Exertional dyspnea Skin cancer Hepatitis A Non-small cell lung cancer (NSCLC) Bilateral pulmonary embolism (11/06/14) Lung cancer Anxiety Ulcerative colitis Home Medications ?Medication ?Instructions ?Recorded ?Last Taken ?Type multivitamin with folic acid 400 1 tab PO DAILY SUPPLEMENT 09/16/14 11/29/23 History mcg tablet cholecalciferol (vitamin D3) 25 1,000 unit PO DAILY supplement 05/04/19 11/29/23 History mcg (1,000 unit) tablet tiotropium bromide 18 mcg capsule 2 cap inhalation DAILY COPD 02/11/20 11/29/23 History with inhalation device (Spiriva with HandiHaler) Lactobacillus rhamnosus GG 15 1 cap PO DAILY probiotic 12/29/20 11/29/23 History billion cell sprinkle capsule (Culturelle) valacyclovir 500 mg tablet 500 mg PO DAILY viral infection 05/31/22 11/29/23 History vitamin E (dl, acetate) 180 mg 180 mg PO DAILY vitamin 02/22/23 11/29/23 History (400 unit) capsule osimertinib 80 mg tablet (Tagrisso) 80 mg PO DAILY cancer 06/18/23 11/29/23 History carvedilol 25 mg tablet 12.5 mg PO BID blood pressure 07/05/23 11/30/23 History dexamethasone 4 mg tablet 4 mg PO .COMPLEX infammation #40 09/12/23 11/26/23 Rx tabs folic acid 1 mg tablet 1 mg PO DAILY supplement #90 tabs 09/12/23 11/29/23 Rx lidocaine-prilocaine 2.5 %-2.5 % 1 applic topical ONCE PRN port 09/12/23 Unknown Rx topical cream access 30 days #30 grams ondansetron 8 mg disintegrating 8 mg PO Q8H PRN nausea and 09/12/23 Unknown Rx tablet vomiting #30 tabs pantoprazole 40 mg tablet,delayed 40 mg PO DAILY reflux #30 tabs 09/27/23 11/29/23 Rx release colestipol 1 gram tablet 2 g (2 x 1 gram) PO BID 10/14/23 11/30/23 Rx cholesterol 30 days #120 tabs albuterol sulfate 90 mcg/actuation 2 puff inhalation Q6H PRN 10/18/23 11/29/23 Rx aerosol inhaler (Ventolin HFA) shortness of breath or wheezing #6.7 grams prednisone 20 mg tablet 40 mg (2 x 20 mg) PO DAILY #9 tabs 11/28/23 11/30/23 Rx calcium carbonate (Oyster Shell 1,000 mg PO DAILY 11/30/23 11/30/23 History Calcium) furosemide 20 mg tablet 20 mg PO DAILY 11/30/23 11/30/23 History levofloxacin 250 mg tablet 250 mg PO DAILY@0600 #7 tabs 12/04/23 Unknown Rx lisinopril 2.5 mg tablet 2.5 mg PO DAILY #30 tabs 12/05/23 Unknown Rx doxycycline monohydrate 100 mg 100 mg PO BID #20 CAPSULES 12/07/23 Unknown Rx capsule Allergy/AdvReac Type Severity Reaction Status Date / Time adhesive tape Allergy Itching Verified 11/30/23 11:51 ipratropium (From Atrovent) Allergy Rash Verified 11/30/23 11:51 terbinafine HCl (From Allergy Rash Verified 11/30/23 11:51 Lamisil) lactose AdvReac Upset Verified 11/30/23 11:51 Stomach Family History Father Liver disease Mother Uterine cancer Brother Myocardial infarction, Onset Age: 60 Surgical History S/P IVC filter History of colonoscopy Malignant pleural effusion (02/07/23) ulnar nerve release left elbow History of thoracentesis EBUS guided biopsy History of bronchoscopy History of tonsillectomy History of hysterectomy H/O hernia repair Hx of cholecystectomy History of appendectomy Social History Smoking Status: Former smoker Tobacco: How many years used: 40 second hand exposure: No alcohol intake: never details: occasionally substance use type: does not use ROS <YANE Beltran - Last Filed: 12/06/23 21:59> ROS ED ROS Narrative Constitutional: Negative for fever, chills, weight loss. Positive for weakness Eyes: Negative for vision loss, vision change, double vision ENT: Negative for any sore throat, ear pain, congestion Cardiovascular: Negative for any chest pain, tightness, palpitations Respiratory: Negative for any cough, sputum production, hemoptysis.positive for dyspnea, dyspnea on exertion, orthopnea Gastrointestinal: Negative for any abdominal pain, nausea, vomiting, diarrhea, constipation, blood in stool, blood in vomit : Negative for any urinary frequency, dysuria, retention, blood in urine Muscle skeletal: Negative for any neck pain, back pain Neurological: Negative for any headache, syncope, dizziness Skin: Negative for any rashes, itching, abrasions, lacerations Psychiatric: Negative for any depression, anxiety, stress, suicidal ideation, homicidal ideation Hematologic: Negative for any excessive bruising, easy bleeding EXAM <Vlad CuevaYANE - Last Filed: 12/06/23 21:59> Physical Exam Narrative Exam Narrative: Vital signs reviewed. HEET: Head normocephalic atraumatic, TMs clear bilaterally. Posterior pharynx is clear, moist mucous membranes. Nares clear bilaterally. Neck: Supple with no lymphadenopathy or tenderness. No signs of meningismus. Cardiac: Regular rate and rhythm no murmurs gallops or rubs, equal peripheral pulses bilaterally. Respiratory: Diminished lung sounds at the left lower lobe, coarse breath sounds throughout. No chest tenderness. Abdomen: Soft, nontender, nondistended. No abdominal bruit or pulsatile masses. No hepatosplenomegaly Extremities: No peripheral edema, no signs of gross trauma or deformity. Active full range of motion of all extremities. Neuro: Cranial nerves II through XII intact, no focal neurological deficits. Skin: Clean dry and intact with no rash, purpura, petechiae, vesicles or pustules. Backs/flank: No CVA tenderness, no midline spinal tenderness, no deformity. Psych: Normal mood and affect. No SI, HI or acute psychosis. Const Vital Signs: 12/06/23 20:07 12/06/23 20:29 12/06/23 20:29 Temperature 98.2 F Temperature Source Oral Pulse Rate 119 H Respiratory Rate 22 H Respiratory Effort Respiratory Pattern Blood Pressure 142/91 H Blood Pressure Mean 108 Pulse Ox 93 89 96 Oxygen Delivery Method Room Air Room Air Nasal Cannula Oxygen Flow Rate (L/min) 2 12/06/23 20:45 12/06/23 21:21 12/06/23 22:01 Temperature Temperature Source Pulse Rate 125 H Respiratory Rate 22 H Respiratory Effort Short of Breath Labored Respiratory Pattern Normal Blood Pressure 149/92 H Blood Pressure Mean 111 Pulse Ox 94 Oxygen Delivery Method Nasal Cannula Nasal Cannula Oxygen Flow Rate (L/min) 2 2 12/07/23 00:00 Temperature Temperature Source Pulse Rate 119 H Respiratory Rate 23 H Respiratory Effort Respiratory Pattern Blood Pressure 147/79 H Blood Pressure Mean 101 Pulse Ox 94 Oxygen Delivery Method Nasal Cannula Oxygen Flow Rate (L/min) 2 <Dr. Solis Nobles DO - Last Filed: 12/07/23 00:33> Physical Exam Const Vital Signs: 12/06/23 20:07 12/06/23 20:29 12/06/23 20:29 Temperature 98.2 F Temperature Source Oral Pulse Rate 119 H Respiratory Rate 22 H Respiratory Effort Respiratory Pattern Blood Pressure 142/91 H Blood Pressure Mean 108 Pulse Ox 93 89 96 Oxygen Delivery Method Room Air Room Air Nasal Cannula Oxygen Flow Rate (L/min) 2 12/06/23 20:45 12/06/23 21:21 12/06/23 22:01 Temperature Temperature Source Pulse Rate 125 H Respiratory Rate 22 H Respiratory Effort Short of Breath Labored Respiratory Pattern Normal Blood Pressure 149/92 H Blood Pressure Mean 111 Pulse Ox 94 Oxygen Delivery Method Nasal Cannula Nasal Cannula Oxygen Flow Rate (L/min) 2 2 12/07/23 00:00 Temperature Temperature Source Pulse Rate 119 H Respiratory Rate 23 H Respiratory Effort Respiratory Pattern Blood Pressure 147/79 H Blood Pressure Mean 101 Pulse Ox 94 Oxygen Delivery Method Nasal Cannula Oxygen Flow Rate (L/min) 2 [facility] <YANE Beltran - Last Filed: 12/06/23 21:59> [facility] Lab Data Labs: Laboratory Results - last 24 hr 12/06/23 21:27 WBC 13.0 H RBC 2.81 L Hgb 8.5 L Hct 26.7 L MCV 95.0 MCH 30.2 MCHC 31.8 L RDW Std Deviation 67.4 H RDW Coeff of Hiram 20.7 H Plt Count 79 L MPV 12.0 Neut % (Auto) Not Reportable Absolute Neuts (auto) 11.4 H Absolute Lymphs (auto) 0.65 L Total Counted 100 Neutrophils % (Manual) 83 H Band Neutrophils % 5 Lymphocytes % (Manual) 5 L Monocytes % (Manual) 7 Diff Path Review May foll Platelet Estimate SLT DEC RBC Morphology N CHROM Anisocytosis 1+ PT 16.3 H INR 1.3 Sodium 136 Potassium 4.2 Chloride 104 Carbon Dioxide 27.0 Anion Gap 5 BUN 34 H Creatinine 1.08 H Estim Creat Clear Calc 30.71 Est GFR (MDRD) Af Amer 63 Est GFR (MDRD) Non-Af 52 L BUN/Creatinine Ratio 31.5 H Glucose 89 Calcium 9.4 Troponin I High Sens 10 B-Natriuretic Peptide 867.9 H Radiography Diagnostic Testing: Clinical Impression(s) from Imaging Studies Chest CTA 12/06/23 20:45 IMPRESSION: 1. No evidence for PE. 2. Abnormal irregular pulmonary opacities in numerous portions of the lungs. In both lung bases findings suggest infiltrates. In both lung apices findings could be scarring or neoplasm. In and around the right hilum in the mid right lung findings have increased in mass since prior exam and could represent recurrent neoplasm. PET scan is recommended. Electronically Signed: Ry Horn MD at 23:05 EDT , EKG Sinus tachycardia: Attestation: I personally reviewed and interpreted this EKG as follows: Comments: Sinus tachycardia with a rate 115 bpm, FL 130 ms, QRS duration 74 ms, no acute ST elevation, no acute infarct noted. Treatment and Re-Evaluation :: Differential diagnosis includes however is not limited to: CHF exacerbation, community-acquired pneumonia, pulmonary embolus, acute on chronic lung cancer, pulmonary effusion Patient is in no obvious respiratory distress on my examination. Patient heart rate is 115, sinus tach, patient's oxygen is 93 to 95% on 2 L nasal cannula. Patient does appear nontoxic. Patient will have cardiopulmonary workup. Patient received troponin, CTA of the chest showing pulmonary embolus, full effusion, fluid overload. Laboratory values will be obtained and compared. All radiologic examinations were read, reviewed by the emergency department attending. From these reads, a plan of care will be put in place. Patient's vital signs remained stable. Patient's laboratory values show slight leukocytosis with a white blood count of 13.0, hemoglobin is 8.5 however this is baseline for the patient. Chemistries show a stable creatinine at 1.08, troponin was negative at 10. Patient did receive a CTA of the chest. <Dr. Solis Nobles, DO - Last Filed: 12/07/23 00:33> [facility] Narrative Medical decision making narrative: I have personally performed a face to face assessment of the patient and have reviewed the MARTA Note. I performed a substantive portion of the visit including all aspects of the following. My rodriguez findings include: History: Patient presents with shortness of breath that has been getting worse over the past week. Patient states it has been constant. Patient states it is worse with any exertion. Patient is on home oxygen at 2 L nasal cannula. Patient states that this seems to help when she is able to rest and wear her oxygen. Patient admits to a cough with some clear and yellow sputum. Patient admits to some subjective fevers and sweats. Patient admits to some chest pain with coughing only. Patient denies any other chest pain. Exam: Vital signs are stable except for tachycardia of 119 and mild tachypnea of 22. Patient is afebrile. Patient is in no acute distress. Oral mucosa is pink and moist. Neck is supple. Trachea is midline. There is no JVD. Heart was regular and tachycardic. Lungs were diminished bilaterally. There is adequate respiratory effort. Abdomen is soft. Bowel sounds are normal. There is no tenderness. Cranial nerves II through XII are intact. There are no focal motor or sensory deficits noted. Medical Decision Making: Differential diagnosis includes pneumonia, pulmonary embolism, COPD exacerbation, congestive heart failure, cardiac dysrhythmia, and cardiac ischemia. EKG will be obtained to assess for cardiac dysrhythmia and cardiac ischemia. CTA of the chest will be obtained to assess for pulmonary embolism, pneumonia, and lung cancer. CBC will be obtained to assess for leukocytosis and anemia. Basic metabolic profile will be obtained to assess for electrolyte abnormality and renal function. PT was INR will be obtained to assess for coagulopathy. BNP will be obtained to assess for congestive heart failure. High-sensitivity troponin will be obtained to assess for cardiac ischemia. EKG was obtained. On my independent interpretation, it says sinus tachycardia with a rate of 115. There are frequent PVCs. FL interval was normal at 130 ms. QRS interval is normal at 74 ms. QTc interval is normal at 462 ms. Dulzura is normal. There are no acute ST or T wave changes noted. CBC was reviewed. There is a slight leukocytosis of 13.0. There is a mild anemia with a hemoglobin of 8.5 and hematocrit 26.7. This is stable compared to previous results. Platelet count was low at 79. There were 83 neutrophils, 5 bands, 5 lymphocytes, and 7 monocytes. PT and INR were reviewed. Pro time was slightly elevated at 16.3 and INR is 1.3. Basic metabolic profile was reviewed and was essentially within normal limits. High-sensitivity troponin was reviewed and was normal at 10. BNP was reviewed and was 867.9. This was improved compared to previous result. CTA of the chest was obtained. There are findings suggesting infiltrates in the lung bases bilaterally. There is scarring or neoplasm in the lung apices. The area around the right hilum and right midlung has increased since previous CT scan and could represent neoplasm. This was interpreted by the radiologist was also independently reviewed by myself. Patient has a known history of non-small cell lung cancer. Patient was given a dose of doxycycline here. Patient was given a prescription for doxycycline. Patient was instructed to follow-up with her primary care physician in 5 to 7 days. Patient was instructed to continue her home oxygen. Patient was instructed to return if worse in any way. Patient understood and was agreeable with the plan. All questions were answered. Lab Data Attestation: I reviewed the patient's lab results. Labs: Laboratory Results - last 24 hr 12/06/23 21:27 WBC 13.0 H RBC 2.81 L Hgb 8.5 L Hct 26.7 L MCV 95.0 MCH 30.2 MCHC 31.8 L RDW Std Deviation 67.4 H RDW Coeff of Hiram 20.7 H Plt Count 79 L MPV 12.0 Neut % (Auto) Not Reportable Absolute Neuts (auto) 11.4 H Absolute Lymphs (auto) 0.65 L Total Counted 100 Neutrophils % (Manual) 83 H Band Neutrophils % 5 Lymphocytes % (Manual) 5 L Monocytes % (Manual) 7 Diff Path Review May foll Platelet Estimate SLT DEC RBC Morphology N CHROM Anisocytosis 1+ PT 16.3 H INR 1.3 Sodium 136 Potassium 4.2 Chloride 104 Carbon Dioxide 27.0 Anion Gap 5 BUN 34 H Creatinine 1.08 H Estim Creat Clear Calc 30.71 Est GFR (MDRD) Af Amer 63 Est GFR (MDRD) Non-Af 52 L BUN/Creatinine Ratio 31.5 H Glucose 89 Calcium 9.4 Troponin I High Sens 10 B-Natriuretic Peptide 867.9 H Radiography Diagnostic Testing: Clinical Impression(s) from Imaging Studies Chest CTA 12/06/23 20:45 IMPRESSION: 1. No evidence for PE. 2. Abnormal irregular pulmonary opacities in numerous portions of the lungs. In both lung bases findings suggest infiltrates. In both lung apices findings could be scarring or neoplasm. In and around the right hilum in the mid right lung findings have increased in mass since prior exam and could represent recurrent neoplasm. PET scan is recommended. Electronically Signed: Ry Horn MD at 23:05 EDT , Discharge Plan Triage Chief Complaint: Shortness of Breath ED Midlevel Provider: Vlad Cueva ED Provider: Solis Nobles Dx/Rx/DC Orders Clinical Impression: Pneumonia, Adenocarcinoma of lung Instructions: ED Pneumonia (Adult) Prescriptions: New doxycycline monohydrate 100 mg capsule 100 mg PO BID Qty: 20 0RF No Action Spiriva with HandiHaler 18 mcg capsule, w/inhalation device 2 cap INHALATION DAILY Rx Instructions: puncture 1 cap using device; one dose = 2 inhalations Culturelle 15 billion cell capsule, sprinkle 1 cap PO DAILY valacyclovir 500 mg tablet 500 mg PO DAILY Patient Comments: TAKE 1 TABLET BY MOUTH THREE TIMES DAILY DIRECTED vitamin E (dl, acetate) 180 mg (400 unit) capsule 180 mg PO DAILY Tagrisso 80 mg tablet 80 mg PO DAILY carvedilol 25 mg tablet 12.5 mg PO BID Rx Instructions: must administer with a meal/food ondansetron 8 mg tablet,disintegrating 8 mg PO Q8H PRN (Reason: nausea and vomiting) Qty: 30 2RF lidocaine-prilocaine 2.5-2.5 % cream 1 applic topical ONCE PRN (Reason: port access) 30 Days Qty: 30 2RF dexamethasone 4 mg tablet 4 mg PO .COMPLEX Qty: 40 0RF Rx Instructions: 4 mg orally twice a day ONLY the day before, the day of, and the day after chemotherapy folic acid 1 mg tablet 1 mg PO DAILY Qty: 90 1RF albuterol sulfate [Ventolin HFA] 90 mcg/actuation HFA aerosol inhaler 2 puff inhalation Q6H PRN (Reason: shortness of breath or wheezing) Qty: 6.7 0RF multivitamin with folic acid 1 TABLET tablet 1 tab PO DAILY Patient Comments: supplement cholecalciferol (vitamin D3) 1,000 UNIT tablet 1,000 unit PO DAILY prednisone 20 mg tablet 40 mg PO DAILY Qty: 9 0RF Rx Instructions: two per day for 3 days, then one daily for 3 days, then stop furosemide 20 mg tablet 20 mg PO DAILY calcium carbonate [Oyster Shell Calcium] 500 mg calcium (1,250 mg) tablet 1,000 mg PO DAILY levofloxacin 250 mg Tablet 250 mg PO DAILY@0600 Qty: 7 0RF lisinopril 2.5 mg tablet 2.5 mg PO DAILY Qty: 30 0RF pantoprazole 40 mg tablet,delayed release (DR/EC) 40 mg PO DAILY Qty: 30 4RF colestipol 1 gram tablet 2 g PO BID 30 Days Qty: 120 2RF Primary Care Provider: Vlad Dennis Referrals: Vlad Dennis MD [Primary Care Provider] - 3-5 Days Print Language: Tajik Disposition Disposition: Home, Self Care
[2023-12-06 21:43] LABS: International Normalized Ratio 1.3; Prothrombin Time (Protime)PT. 16.3 SECONDS (11.7-14.9)
[2023-12-06 21:45] LABS: Hematocrit 26.7 % (37-47); Hemoglobin 8.5 g/dL (12.0-15.0); Mean Corp Hgb Conc 31.8 g/dL (32-36); Mean Corpuscular Hgb 30.2 pg (27.0-32.0); POSITIVE COUNT YES; POSITIVE DIFFERENTIAL YES; POSITIVE MORPHOLOGY YES; Platelet Count 79 K/mm3 (150-450); RBC Distribution Width CV 20.7 % (11.6-14.6); RBC Distribution Width SD 67.4 fl (35.1-43.9); Red Blood Count 2.81 M/mm3 (4.2-5.4)
[2023-12-06 21:50] LABS: Differential Indicated MANUAL DIFF
[2023-12-06 21:57] LABS: Anion Gap 5 (5-15); BUN 34 mg/dL (7-18); BUN/Creat Ratio 31.5 RATIO (10-20); Calcium,Total 9.4 mg/dL (8.5-10.1); Chloride 104 mmol/L (98-107); Creatinine, Serum 1.08 mg/dL (0.55-1.02); EST Glomerular Filtration Rate 52 mL/min (>60); Est Glom Filt Rate - Afr Amer 63 mL/min (>60); Estimated Creatinine Clearance 30.71 ml/min; Glucose 89 mg/dL (74-106); Potassium 4.2 mmol/L (3.5-5.1); Sodium Level 136 mmol/L (136-145); Troponin-I HS 10 pg/mL (3.0-54.0)
[2023-12-06 22:01] VITALS: BP 149/92; PULSE 125; RESP 22; O2SAT 94
[2023-12-06 22:27] LABS: Anisocytosis 1+; Lymphocyte 5 % (19-41); Monocyte 7 % (0-10); Neutrophil-Band 5 % (0-5); Neutrophil-Segmented 83 % (47-70); Total Cells Counted 100 (MANUAL DIFF)
[2023-12-06 22:28] LABS: Red Cell Morphology N CHROM NORMAL (NORM C&C)
[2023-12-06 22:29] LABS: Platelet Estimate SLT DEC (ADEQ)
[2023-12-06 22:31] LABS: Absolute Lymphocyte Count 0.65 X10^3/uL (0.83-4.51); Absolute Neutrophil Count 11.4 X10^3/uL (2.0-7.7)
[2023-12-06 22:37] LABS: BNP,B-Type NATRIURETIC PEPTIDE 867.9 pg/mL (0-100)
[2023-12-07] VITALS: BP 147/79; PULSE 119; RESP 23; O2SAT 94
[2023-12-07 00:37] VITALS: BP 147/79; PULSE 122; RESP 16; TEMP 37; O2SAT 98
[2023-12-07] MEDS: Doxycycline 100 MG CAPSULE PO (00:39)
[2023-12-10 14:38] LABS: Pathologist Review Reviewed
== END 2023-12-07 00:45 | disposition home or self-care (01) ==
PROVIDERS: Nurse Practitioner; Emergency Provider Emergency Medicine; PCP Family Medicine; Visit Provider Emergency Medicine
DX: J18.9 Pneumonia, unspecified organism (principal); C34.90 Malignant neoplasm of unspecified part of unspecified bronchus or lung; J44.9 Chronic obstructive pulmonary disease, unspecified; I10 Essential (primary) hypertension; Z99.81 Dependence on supplemental oxygen; Z79.899 Other long term (current) drug therapy; Z87.891 Personal history of nicotine dependence
CPT/HCPCS: 36591; 71275; 80048; 83880; 84484; 85025; 85610; 93005; 99285; Q9967; A4216

== ENCOUNTER → 2023-12-06 | Outpatient (CLI) | payer MEDICARE, OTHER, SELFPAY ==
--- NOTE | 2023-12-06 09:13 | BI_ITS ---
MAMMOGRAPHY - BILATERAL SCREENING 3-D TOMOSYNTHESIS REASON FOR EXAM: Female, 78 years old. SCREENING PERTINENT HISTORY: No significant family history. TECHNIQUE: 2-D mammograms and 3-D Tomosynthesis of the breast (s) were performed. CAD was performed. COMPARISON: 11/28/2022 FINDINGS: The breast composition is Extermely dense tissue. Scattered benign calcifications are seen. No dense spiculated masses or suspicious microcalcifications are identified. No architectural distortion is identified. There is no skin thickening or retraction. There has been no significant change since the prior study. BI/SCRN MAMM (CAD)W/MOON BILAT IMPRESSION: No mammographic signs of malignancy. Routine yearly mammograms recommended. ASSESSMENT CATEGORY: BIRADS Category 1: Negative. A letter regarding these results will be sent to the patient by the facility within 30 days. FOLLOW UP RECOMMENDATION: Yearly follow up mammogram recommended. (A) Approximately 10% of breast cancers are not detected by mammography. A normal mammogram should not delay biopsy of a clinically suspicious abnormality. Electronically Signed: Rodney Skinner MD at 18:24 EDT ,
== END | disposition home or self-care (01) ==
LOC: OPBI 09:12
PROVIDERS: PCP Family Medicine; Visit Provider Family Medicine
DX: Z12.31 Encounter for screening mammogram for malignant neoplasm of breast (principal)
CPT/HCPCS: 77063; 77067

== ENCOUNTER → 2024-02-24 | Outpatient (CLI) | payer MEDICARE, OTHER, SELFPAY ==
--- NOTE | 2024-02-24 12:46 | ECHODONC_ITS ---
Reason For Study: ANTINEOPLASTIC CHEMO Procedure This was a 2D Doppler, Color Flow transthoracic echocardiogram. Myocardial strain analysis was performed in this exam to aid in the assessment of cardiac function. Exam performed in department. Left Ventricle Normal LV size. The left ventricular ejection fraction is 45 %. Stage 1 diastolic dysfunction. There is mild global hypokinesis of the left ventricle. Right Ventricle Normal RV size. Normal systolic function. Atria Normal left atrium. Normal right atrium. Mitral Valve Normal mitral valve. Tricuspid Valve Normal tricuspid valve. Aortic Valve Normal aortic valve. Pulmonic Valve Normal pulmonic valve. Great Vessels Normal aortic root. The pulmonary artery is normal size. Inferior vena cava collapse with respiration. Pericardium/Pleural Small pericardial effusion. There are no echocardiographic indications of cardiac tamponade. MMode/2D Measurements & Calculations LVIDd: 4.4 cm IVSd: 0.82 cm Ao root diam: 3.6 cm LVIDs: 3.6 cm LVPWd: 0.97 cm RVDd: 2.2 cm FS: 18.8 % LAV(MOD-sp4): 19.7 ml LVAd ap4: 24.6 cm2 SV(MOD-sp4): 28.9 ml LVLd ap4: 7.1 cm EDV(MOD-sp4): 69.2 ml EDV(sp4-el): 72.4 ml LVAs ap4: 17.2 cm2 LVLs ap4: 6.3 cm ESV(MOD-sp4): 40.3 ml ESV(sp4-el): 40.0 ml EF(MOD-sp4): 41.8 % EF(sp4-el): 44.8 % SV(sp4-el): 32.5 ml LA A4 area: 9.3 cm2 LA dimension(2D): 2.1 cm RA A4 area: 7.9 cm2 TAPSE: 1.6 cm Time Measurements MV dec time: 0.05 sec Doppler Measurements & Calculations MV E max escobar: 48.9 cm/sec Lat Peak E' Escobar: 7.9 cm/sec Med Peak E' Escobar: 5.7 cm/sec MV A max escobar: 107.0 cm/sec E/E' lat: 6.2 E/E' med: 8.5 MV E/A: 0.46 Ao V2 max: 112.0 cm/sec LV V1 max: 103.2 cm/sec MV dec slope: 960.5 cm/sec2 Ao max P.0 mmHg LV V1 max P.3 mmHg Ao V2 mean: 80.2 cm/sec LV V1 mean P.7 mmHg Ao mean P.9 mmHg LV V1 mean: 77.4 cm/sec Ao V2 VTI: 18.8 cm LV V1 VTI: 17.3 cm AV (velocity ratio): 0.92 PA V2 max: 78.5 cm/sec PA V2 mean: 58.9 cm/sec ECHO/ONC Echo Complete Interpretation Summary Normal LV size. The left ventricular ejection fraction is 45 %. Stage 1 diastolic dysfunction. Small pericardial effusion. There are no echocardiographic indications of cardiac tamponade. The global longitudinal strain is moderately abnormal. The global longitudinal strain = -13.2% (abnormal). Ordering Physician: Timmy Hartmann Referring Physician: Timmy Hatrmann Performed By: Marni Delgado RCS
== END | disposition home or self-care (01) ==
PROVIDERS: PCP Family Medicine; Referring Provider Internal Medicine Medical Oncology; Visit Provider Internal Medicine Medical Oncology
DX: C34.92 Malignant neoplasm of unspecified part of left bronchus or lung (principal); Z79.899 Other long term (current) drug therapy
CPT/HCPCS: 93306; 93356

== ENCOUNTER → 2024-02-28 | Outpatient (CLI) | payer MEDICARE, OTHER, SELFPAY ==
--- NOTE | 2024-02-28 07:24 | CT_ITS ---
STUDY: CT CHEST T ABDOMEN WITH CONTRAST REASON FOR EXAM: Female, 78 years old. LUNG CA-IV ONLY RADIATION DOSAGE (If Supplied By Facility): CTDIvol = ( 7.37 ) mGy, DLP = ( 318.73 ) mGycm TECHNIQUE: Transaxial imaging was performed following intravenous administration of IV 100mL Isovue-370. Multiplanar coronal and sagittal images were reformatted. Individualized dose optimization techniques were used for this CT. COMPARISON: Comparison is made with prior study dated November 06, 2023. FINDINGS: CHEST A right-sided portacatheter is in place. The tip is in the superior vena cava. A spiculated lesion is seen in the right lung apex. It measures 1.3 cm. This is essentially unchanged. There is also evidence of irregular mass lesion in the left upper lobe with evidence of bronchiectasis. It presently measures 2 cm x 2.1 cm. This has decreased in size as compared to prior study where it measured 3.1 cm x 1.8 cm. Once again, there is evidence of bronchiectasis and soft tissue density in the right hilar and infrahilar region most likely representing postradiation fibrosis and/or post radiation pneumonitis. There is evidence of bronchiectasis. Slight increase in size of the nodular density seen in the medial aspect of the left upper lobe as seen on axial image #62. The present measures 1.1 cm. It previously measured 1 cm. There is a new 1.4 cm pleural-based nodule in the lateral aspect of the left lower lobe anteriorly. Small residual left pleural thickening. The previously seen catheter within the left pleural space has been withdrawn. 3 cm x 1.7 cm mass which is pleural based in the posterior left lower lobe adjacent to the left hemidiaphragm. There is also evidence of pleural thickening at that site. There are calcifications of the coronary arteries. Since prior examination, there now is evidence of extensive mediastinal adenopathy worse in the region of the aortopulmonary window on the left side. There is also evidence of right hilar lymphadenopathy. Normal hilar regions. Normal unenhanced pulmonary arteries. Normal aorta arch and descending thoracic aorta. There is demineralization of the thoracic spine. ABDOMEN Mild degree of central intrahepatic biliary ductal dilatation. The patient is status post cholecystectomy. Normal spleen. Normal pancreas. Normal bilateral adrenal glands. Normal right kidney. Normal left kidney. Normal visualized stomach. Normal small intestine. Normal colon. The appendix is visualized and appears normal. There is diffuse atherosclerotic calcification of the abdominal aorta, without a demonstrated aneurysm. There is an IVC filter in place. Normal retroperitoneum. Normal abdominal wall. 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 CT/CT Chest AND Abd W/ Contrast IMPRESSION: Since prior study, there has been a progression of the mediastinal and bilateral hilar lymphadenopathy. Slight decrease in size of the left upper lobe and right upper lobe pulmonary nodules. Persistent postobstructive pneumonitis and/or radiation in the right hilar and infrahilar regions. New 1.4 cm pleural-based nodule in the lateral aspect of the left lower lobe. New 1.7 cm x 3 cm nodule which is pleural-based in the left lower lobe adjacent to the left hemidiaphragm. Electronically Signed: Kingsley Clements MD at 15:09 EDT ,
[2024-02-28] MEDS: 0.9 % NaCl (Sterile) Posiflush 10 mL IV (07:30)
[2024-02-28] MEDS: 0.9% Saline Lock 10 ML Syringe IV (07:45)
== END | disposition home or self-care (01) ==
LOC: CT 07:24
PROVIDERS: PCP Family Medicine; Referring Provider Internal Medicine Medical Oncology; Visit Provider Internal Medicine Medical Oncology
DX: C34.92 Malignant neoplasm of unspecified part of left bronchus or lung (principal)
CPT/HCPCS: 71260; 74160; Q9967; A4216

== ENCOUNTER 2024-03-13 06:40 | Emergency (ER) | payer MEDICARE, OTHER, SELFPAY ==
[2024-03-13] VITALS (7 sets, daily range): BP systolic 124–134; BP diastolic 60–93; PULSE 78–116; RESP 18–21; TEMP 36–36.7; O2SAT 93–100; BMI 16.2
--- NOTE | 2024-03-13 06:58 | CT_ITS ---
STUDY: CTA CHEST REASON FOR EXAM: Female, 78 years old. Chest pain RADIATION DOSAGE (If Supplied By Facility): CTDIvol = ( 4.67 ) mGy, DLP = ( 126.73 ) mGycm TECHNIQUE: The examination was performed with the intravenous administration of IV 65mL Isovue-370. Post-processing of the angiographic images was performed, with multiplanar reformation and 3D reconstruction. Individualized dose optimization techniques were used for this CT. COMPARISON: February 28, 2024 FINDINGS: There is port on the right extending to the superior vena cava. Normal enhancement of the main pulmonary artery and right and left pulmonary arteries. Normal enhancement of the bilateral peripheral pulmonary arteries. There is no demonstrated pulmonary embolism. There is atherosclerotic calcification of the aortic arch with tortuosity. There is no demonstrated aortic dissection. Normal heart and pericardium. There are mediastinal masses consistent with adenopathy including measuring up to 7.0 cm at the AP window . There is distortion and enlargement of the hilar contours. Normal visualized trachea and bronchi. The lungs are well expanded. There is emphysema of the lungs. There are multiple masses seen including measuring 1.2 cm at the left lung apex and 4.0 cm at the left upper lobe. There is there are destruction of the left posterior seventh rib with ill-defined mass. There is stable dense right perihilar and mid lung airspace consolidation. There is new moderately severe left upper, mid, and lower lung airspace consolidation. Lower lung masses are obscured by consolidation. Normal pleura. There are degenerative changes of thoracic spine. Normal visualized upper abdomen. CT/CTA Chest W/WO Contrast IMPRESSION: CTA chest examination, without a demonstrated pulmonary embolism or arterial dissection. Multiple lung masses. Mediastinal and hilar lymphadenopathy. Osseous destruction of the left posterior seventh rib with mass. New left pneumonia. Electronically Signed: Anthony Rodriguez MD at 8:24 EDT ,
[2024-03-13] MEDS: HYDROmorphone 1 MG/ML Syringe IV (07:08)
[2024-03-13] MEDS: 0.9% Normal Saline (500mL Bag) 500 ML 999 ML IV (07:08)
[2024-03-13] MEDS: Ondansetron 4 MG/2 ML Vial IV (07:08)
[2024-03-13 07:12] LABS: Absolute Lymphocyte Count 0.48 X10^3/uL (0.83-4.51); Absolute Neutrophil Count 29.2 X10^3/uL (2.0-7.7); Basophil# 0.09 X10^3/uL; Basophil% 0.3 % (0-1); Eosinophil# 0.02 X10^3/uL; Eosinophils% 0.1 % (0-5); Hemoglobin 13.4 g/dL (12.0-15.0); Lymphocyte # 0.48 X10^3/ul (0.83-4.51); Lymphocyte % 1.6 % (19-41); Mean Corp Hgb Conc 32.7 g/dL (32-36); Mean Corpuscular Hgb 31.4 pg (27.0-32.0); Mean Platelet Vol. 9.7 fl (6.2-12.0); Monocyte# 0.89 X10^3/uL; Monocyte% 2.9 % (0-10); NRBC Flagged by Analyzer 0 % (0-5); Neutrophil # 29.15 X10^3/uL (2.7-7.7); Neutrophil % 94.1 % (47-70); POSITIVE COUNT YES; POSITIVE DIFFERENTIAL YES; Platelet Count 289 K/mm3 (150-450); RBC Distribution Width CV 14.6 % (11.6-14.6); RBC Distribution Width SD 51.1 fl (35.1-43.9); Red Blood Count 4.27 M/mm3 (4.2-5.4)
--- NOTE | 2024-03-13 07:17 | EKG12_ITS ---
Test Reason : CP Blood Pressure : / mmHG Vent. Rate : 114 BPM Atrial Rate : 114 BPM P-R Int : 114 ms QRS Dur : 080 ms QT Int : 324 ms P-R-T Axes : 089 039 071 degrees QTc Int : 446 ms Sinus tachycardia with occasional Premature ventricular complexes Possible Left atrial enlargement Low voltage QRS Borderline ECG Confirmed by OSCAR WEBER ([id number]), primer expeditor and drier ZENOBIA JAVED ([id number]) on 03/17/2024 8:29:30 AM Referred By: Confirmed By:OSCAR WEBER
[2024-03-13 07:21] LABS: Prothrombin Time (Protime)PT. 13.5 SECONDS (11.7-14.9)
[2024-03-13 07:22] LABS: Partial Thromboplast Time 23.6 Seconds (24.1-36.2)
[2024-03-13 07:27] LABS: Anion Gap 5 (5-15); BUN 33 mg/dL (7-18); BUN/Creat Ratio 37.7 RATIO (10-20); Calcium,Total 11.4 mg/dL (8.5-10.1); Chloride 96 mmol/L (98-107); Creatinine, Serum 0.88 mg/dL (0.55-1.02); EST Glomerular Filtration Rate 67 mL/min (>60); Est Glom Filt Rate - Afr Amer 80 mL/min (>60); Estimated Creatinine Clearance 34.06 ml/min; Glucose 91 mg/dL (74-106); Magnesium 1.8 mg/dL (1.6-2.6); Potassium 4.3 mmol/L (3.5-5.1); Sodium Level 134 mmol/L (136-145); Troponin-I HS 23 pg/mL (3.0-54.0)
--- NOTE | 2024-03-13 07:34 | EX.ED.DYSGE1 ---
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 She is in hospice care at this time but is still a full code. She is no longer on anticoagulation. She wears 3 L of nasal cannula oxygen 04/02. She reports that this morning she awoke and noticed increasing left-sided chest discomfort that was worse with inspiration. Family gave oral morphine without any symptom improvement. Patient did have similar symptoms to this in November of this year and at that time had pneumonia. With concern patient may have a secondary infection or blood clot or acute coronary syndrome EMS was called and she was brought in for evaluation [facility] Medical History Anemia Congestive heart failure Fluid overload COPD exacerbation DVT (deep venous thrombosis) HTN (hypertension) Vision changes Shortness of breath Hypokalemia Weight loss Pulmonary embolism Pneumonia Immunotherapy encounter Chemotherapy management, encounter for Wears glasses Wears dentures Cancer Alcohol use History of pulmonary embolus (PE) History of hepatitis A virus infection Gastric reflux Former smoker Shortness of breath on exertion History of tachycardia History of stress test History of echocardiogram Cardiology follow-up encounter Encounter for vitamin B12 injection while on pemetrexed chemotherapy Encounter for insertion of venous access port Diarrhea Encounter for monitoring cardiotoxic drug therapy Exertional dyspnea Headache COPD with exacerbation Dyspepsia and disorder of function of stomach Hydronephrosis with ureteral calculus NSCLC of left lung Essential hypertension Encounter for education Pleural effusion, left History of lung cancer in adulthood Lung nodule < 6cm on CT Sinus tachycardia Raynauds disease Chest pain COPD (chronic obstructive pulmonary disease) Lung mass Colitis Exertional dyspnea Skin cancer Hepatitis A Non-small cell lung cancer (NSCLC) Bilateral pulmonary embolism (11/06/14) Lung cancer Anxiety Ulcerative colitis Home Medications ?Medication ?Instructions ?Recorded ?Last Taken ?Type multivitamin with folic acid 400 1 tab PO DAILY SUPPLEMENT 09/16/14 11/29/23 History mcg tablet cholecalciferol (vitamin D3) 25 1,000 unit PO DAILY supplement 05/04/19 11/29/23 History mcg (1,000 unit) tablet tiotropium bromide 18 mcg capsule 2 cap inhalation DAILY COPD 02/11/20 11/29/23 History with inhalation device (Spiriva with HandiHaler) vitamin E (dl, acetate) 180 mg 180 mg PO DAILY vitamin 02/22/23 11/29/23 History (400 unit) capsule lidocaine-prilocaine 2.5 %-2.5 % 1 applic topical ONCE PRN port 09/12/23 Unknown Rx topical cream access 30 days #30 grams albuterol sulfate 90 mcg/actuation 2 puff inhalation Q6H PRN 10/18/23 11/29/23 Rx aerosol inhaler (Ventolin HFA) shortness of breath or wheezing #6.7 grams calcium carbonate (Oyster Shell 1,000 mg PO DAILY 11/30/23 11/30/23 History Calcium) carvedilol 6.25 mg tablet 6.25 mg PO BID #60 tabs 12/27/23 Unknown Rx colestipol 1 gram tablet 2 g (2 x 1 gram) PO BID 01/21/24 Unknown Rx cholesterol 30 days #120 tabs pantoprazole 40 mg tablet,delayed 40 mg PO DAILY reflux #30 tabs 03/02/24 Unknown Rx release Allergy/AdvReac Type Severity Reaction Status Date / Time adhesive tape Allergy Itching Verified 03/13/24 06:47 terbinafine HCl (From Allergy Rash Verified 03/13/24 06:47 Lamisil) lactose AdvReac Upset Verified 03/13/24 06:47 Stomach Family History Father Liver disease Mother Uterine cancer Brother Myocardial infarction, Onset Age: 60 Surgical History S/P IVC filter History of colonoscopy Malignant pleural effusion (02/07/23) ulnar nerve release left elbow History of thoracentesis EBUS guided biopsy History of bronchoscopy History of tonsillectomy History of hysterectomy H/O hernia repair Hx of cholecystectomy History of appendectomy Social History Smoking Status: Former smoker Tobacco: How many years used: 40 second hand exposure: No alcohol intake: never details: occasionally substance use type: does not use ROS ROS ED Constitutional Constitutional ED: Denies chills or fever(s) Eyes Eyes: Denies blurry vision or change in vision ENT ENT ED: Denies sore throat Cardiovascular Cardiovascular: Reports chest pain; Denies palpitations or racing heartbeat Respiratory/Chest Respiratory/Chest: Reports dyspnea; Denies cough Gastrointestinal Gastrointestinal: Denies abdominal pain, diarrhea, nausea or vomiting Genitourinary Genitourinary ED: Denies dysuria Musculoskeletal Musculoskeletal: Denies back pain Integumentary Denies Abrasions or rash Neurologic Neurologic: Reports weakness; Denies headache(s) Hematologic/Lymphatic Hematologic/Lymphatic: Denies easy bleeding or easy bruising EXAM Physical Exam Const Vital Signs: 03/13/24 06:41 03/13/24 07:16 Temperature 96.8 F L Temperature Source Oral Pulse Rate 116 H Respiratory Rate 20 H Blood Pressure 134/93 H Blood Pressure Mean 106 Pulse Ox 93 97 Oxygen Delivery Method Nasal Cannula Nasal Cannula Oxygen Flow Rate (L/min) 4 5 Positive well developed and cachectic General Appearance ED: well developed and cachectic; Negative for pallor Nutritional Appearance: cachectic HEENT HEENT Narrative: Normocephalic atraumatic Eyes PERRL and EOMs intact bilaterally General Eye ED: Negative for pale conjunctiva or scleral icterus Neck supple and no JVD Neck Narrative: No nuchal rigidity or meningeal signs noted Chest Wall Chest Narrative: There is reproducible left anterior chest wall pain rib regions 4-6 that patient states is somewhat different than the pain she is experiencing. There is no obvious bony deformity or crepitance noted Patient has a port in place in the right upper chest wall without secondary soft tissue changes to suggest infection Resp Resp Narrative: Patient is tachypneic and breath sounds are diminished throughout with scattered rhonchi noted Cardio regular rhythm Rate: tachycardic and other Other Details: Tachycardic rate with regular rhythm GI non-tender, non-distended and no masses GI Narrative: Abdomen is soft nontender nondistended with hypoactive bowel sounds no voluntary guarding or rigidity or pulsatile mass Auscultation: hypoactive bowel sounds Palpation: soft Extremity normal to inspection Extremity Narrative: No asymmetric edema no pitting edema negative Homans' sign bilaterally Neuro oriented x3 and CN's II-XII intact bilaterally Sensorium / Orientation: alert Psych mental status grossly normal Skin no rashes or lesions noted General Skin Exam: Negative for jaundice or pallor MDM MDM MDM Narrative Medical decision making narrative: Patient arrived to ER hypertensive but has a past medical history of this. She is tachycardic and tachypneic but I believe this is most likely secondary to pain. Differential diagnosis is for acute coronary syndrome versus cardiac dysrhythmia versus pneumothorax versus pathologic fracture versus pulmonary embolus versus pneumonia. Secondary to this basic labs were ordered as well as a CTA. At this time the patient's EKG shows tachycardia but no ischemic changes going against acute coronary syndrome and her troponin is normal at 23. 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 At this time the CTA to assess for PE versus pneumonia versus pneumothorax versus pathologic fracture are still pending and therefore the patient will be signed out to the day physician Dr. Hickey. Lab Data Attestation: I reviewed the patient's lab results. Labs: Laboratory Results - last 24 hr 03/13/24 07:00 PT 13.5 INR 1.0 APTT 23.6 L Sodium 134 L Potassium 4.3 Chloride 96 L Carbon Dioxide 33.0 H Anion Gap 5 BUN 33 H Creatinine 0.88 Estim Creat Clear Calc 34.06 Est GFR (MDRD) Af Amer 80 Est GFR (MDRD) Non-Af 67 BUN/Creatinine Ratio 37.7 H Glucose 91 Calcium 11.4 H Magnesium 1.8 Troponin I High Sens 23 Discharge Plan Triage Chief Complaint: Chest Pain ED Provider: Tyler Osorio Dx/Rx/DC Orders Prescriptions: No Action Spiriva with HandiHaler 18 mcg capsule, w/inhalation device 2 cap INHALATION DAILY Rx Instructions: puncture 1 cap using device; one dose = 2 inhalations vitamin E (dl, acetate) 180 mg (400 unit) capsule 180 mg PO DAILY lidocaine-prilocaine 2.5-2.5 % cream 1 applic topical ONCE PRN (Reason: port access) 30 Days Qty: 30 2RF albuterol sulfate [Ventolin HFA] 90 mcg/actuation HFA aerosol inhaler 2 puff inhalation Q6H PRN (Reason: shortness of breath or wheezing) Qty: 6.7 0RF carvedilol 6.25 mg tablet 6.25 mg PO BID Qty: 60 3RF Rx Instructions: administer with food (meal or snack) multivitamin with folic acid 1 TABLET tablet 1 tab PO DAILY Patient Comments: supplement cholecalciferol (vitamin D3) 1,000 UNIT tablet 1,000 unit PO DAILY calcium carbonate [Oyster Shell Calcium] 500 mg calcium (1,250 mg) tablet 1,000 mg PO DAILY colestipol 1 gram tablet 2 g PO BID 30 Days Qty: 120 2RF pantoprazole 40 mg tablet,delayed release (DR/EC) 40 mg PO DAILY Qty: 30 4RF Primary Care Provider: Vlad Dennis Referrals: Vlad Dennis MD [Primary Care Provider] - Print Language: Belarusian
[2024-03-13 07:50] LABS: Differential Indicated SCAN CRITERIA MET
--- NOTE | 2024-03-13 07:51 | ED.RN ---
LAB CALLED CRITICAL OF WBC OF 30.93. DR SAINI AWARE
[2024-03-13 07:52] LABS: White Blood Count 30.9 K/mm3 (4.4-11.0)
[2024-03-13 08:09] LABS: Differential Comment SCANNED
[2024-03-13] MEDS: Lidocaine 5% Patch 1 PATCH TOPICAL (10:32)
[2024-03-13] MEDS: levoFLOXacin 750 MG Tablet PO (10:33)
[2024-03-18 09:43] LABS: Pathologist Review Reviewed
== END 2024-03-13 11:52 | disposition hospice, inpatient (51) ==
PROVIDERS: Emergency Provider Emergency Medicine; PCP Family Medicine; Visit Provider Emergency Medicine
DX: M84.58XA Pathological fracture in neoplastic disease, other specified site, initial encounter for fracture (principal); C79.9 Secondary malignant neoplasm of unspecified site; C34.12 Malignant neoplasm of upper lobe, left bronchus or lung; J44.9 Chronic obstructive pulmonary disease, unspecified; X58.XXXA Exposure to other specified factors, initial encounter; I10 Essential (primary) hypertension; J18.9 Pneumonia, unspecified organism; Z99.81 Dependence on supplemental oxygen; Z79.51 Long term (current) use of inhaled steroids; Z79.899 Other long term (current) drug therapy; Z86.711 Personal history of pulmonary embolism; Z86.718 Personal history of other venous thrombosis and embolism; Z87.891 Personal history of nicotine dependence
CPT/HCPCS: 36591; 71275; 80048; 83735; 84484; 85025; 85610; 85730; 93005; 96361; 96374; 96375; 99284; J7040; Q9967; A4216; J2405